=== PATIENT | female | born 1955 | race Caucasian/White ===

== ENCOUNTER 2023-10-09 11:06 | Outpatient (OUT) | payer MEDICARE, MEDICAID, SELFPAY ==
[2023-10-09 11:38] LABS: Basophils Absolute Auto 0.1 10^3/uL (0.0-0.1); Basophils Percent Auto 1.3 % (0.2-2.0); Eosinophils Absolute Auto 0.1 10^3/uL (0.0-0.7); Eosinophils Percent Auto 1.4 % (0.9-7.0); Hematocrit 40.3 % (36.0-48.0); Hemoglobin 12.6 g/dL (12.0-16.0); Immature Granulocytes Abs Auto 0.01 10^3/uL (0.00-0.03); Immature Granulocytes Pct Auto 0.2 % (0.0-0.5); Lymphocytes Absolute Auto 2.3 10^3/uL (1.2-3.8); Mean Corpuscular HGB Conc 31.3 g/dL (29.9-35.2); Mean Corpuscular Hemoglobin 28.2 pg (26.7-34.0); Mean Corpuscular Volume 90.2 fL (81.0-99.0); Mean Platelet Volume 10.4 fL (9.5-13.5); Monocytes Absolute Auto 0.3 10^3/uL (0.3-0.8); Monocytes Percent Auto 6.1 % (1.7-12.0); Neutrophils Absolute Auto 2.7 10^3/uL (1.4-6.5); Platelet Count 250 10^3/uL (150-450); Red Blood Count 4.47 10^6/uL (4.20-5.40); Red Cell Distribution Width 12.8 % (11.0-15.0); White Blood Count 5.6 10^3/uL (4.0-11.0)
[2023-10-09 11:53] LABS: Bilirubin Urine NEGATIVE (NEGATIVE); Blood Urine NEGATIVE (NEGATIVE); Clarity Urine CLEAR (CLEAR); Color Urine LT. YELLOW (YELLOW); Glucose Urine UA NEGATIVE (NEGATIVE); Ketones Urine NEGATIVE (NEGATIVE); Leukocyte Esterase Urine NEGATIVE (NEGATIVE); Nitrite Urine NEGATIVE (NEGATIVE); Protein Urine NEGATIVE (NEG/TRACE); Specific Gravity Urine <=1.005 (1.005-1.025); Urobilinogen Urine 0.2 EU/dL (0.2-1.0)
[2023-10-09 11:56] LABS: Estimated Average Glucose 114 mg/dL; Glycohemoglobin A1C 5.6 % (4.5-6.2)
[2023-10-09 12:09] LABS: Bacteria Urine NONE SEEN #/HPF (NONE SEEN); Mucus Urine NONE SEEN (NONE SEEN); RBC Urine NONE SEEN #/HPF (0-2); Squamous Epithelial Cell Urine RARE #/LPF (NONE/RARE); WBC Urine NONE SEEN #/HPF (NONE SEEN)
[2023-10-09 12:19] LABS: Alanine Aminotransferase 15 U/L (14-59); Albumin Globulin Ratio 1.1; Albumin Level 4.1 g/dL (3.4-5.0); Alkaline Phosphatase 74 U/L (46-116); Amylase 30 U/L (25-115); Anion Gap 12.4; Aspartate Amino Transferase 15 U/L (15-37); BUN Creatinine Ratio 17.3; Bilirubin Total 0.4 mg/dL (0.2-1.0); Calcium 9.4 mg/dL (8.5-10.1); Carbon Dioxide 28.5 mmol/L (21.0-32.0); Chloride 104 mmol/L (98-107); Chol HDL Ratio 2.9; Cholesterol 234 mg/dL (<=200); Estimated GFR (African America >60 (>=60); Estimated GFR (Non-African Ame >60 (>=60); Globulin 3.8 g/dL; Glucose 94 mg/dL (74-106); HDL Cholesterol 82 mg/dL (40-60); Potassium 3.9 mmol/L (3.5-5.1); Sodium 141 mmol/L (136-145); Thyroid Stimulating Hormone 0.256 uIU/mL (0.358-3.740); Total Protein 7.9 g/dL (6.4-8.2); Triglycerides 77 mg/dL (<=150); VLDL CHOLESTEROL 15.4 mg/dL
== END 2023-10-09 11:07 | disposition home or self-care (01) ==
PROVIDERS: PCP Family Medicine; Visit Provider Family Medicine
DX: K29.70 Gastritis, unspecified, without bleeding (principal); E78.5 Hyperlipidemia, unspecified; J44.9 Chronic obstructive pulmonary disease, unspecified; R73.09 Other abnormal glucose; Z12.12 Encounter for screening for malignant neoplasm of rectum; D64.9 Anemia, unspecified; E55.9 Vitamin D deficiency, unspecified; R82.998 Other abnormal findings in urine
CPT/HCPCS: 36415; 80053; 80061; 81001; 82150; 82306; 83036; 83540; 83690; 84436; 84443; 84481; 85025; 87086

== ENCOUNTER 2023-10-11 13:53 | Outpatient (REF) | payer MEDICARE, MEDICAID, SELFPAY ==
--- OUTSIDE RECORDS SUMMARY | 2023-10-11 13:56 | XMS_ITS | CCD ---
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 Name Role Phone Nichelle Bailey II Unavailable [phone] RON CURTIS Attending Unavailable NICHOLAS, DR GARZA Primary Care Unavailable RON CURTIS Admitting Unavailable BARRERA, DR YENI Sunshine Consulting Unavailable GEORGIA, DR BARRY Shepherd Consulting Unavailable RON CURTIS Consulting Unavailable PABLO MILLER Consulting Unavailable NICHOLAS, DR GARZA Admitting Unavailable JINY, DR GARZA Attending Unavailable JINY, DR GARZA Primary Care Unavailable HOY, DR GARZA Consulting Unavailable NICHOLAS, DR GARZA Admitting Unavailable NICHOLAS, DR GARZA Attending Unavailable NICHOLAS, DR GARZA Primary Care Unavailable NICHOLAS, DR GARZA Consulting Unavailable NICHOLAS, DR GARZA Admitting Unavailable JINY, DR GARZA Attending Unavailable JINY, DR GARZA Primary Care Unavailable JINY, DR GARZA Consulting Unavailable BARRERA, DR YENI Sunshine Consulting Unavailable NICHOLAS, DR GARZA Primary Care Unavailable NICHOLAS, DR GARZA Admitting Unavailable NICHOLAS, DR GARZA Attending Unavailable HOY, DR GARZA Consulting Unavailable NICHOLAS, DR GARZA Primary Care Unavailable NICHOLAS, DR GARZA Attending Unavailable NICHOLAS, DR GARZA Admitting Unavailable AUDELIA UNGER Attending Unavailable VIKI BALL Consulting Unavailable AUDELIA UNGER Admitting Unavailable NICHOLAS, DR GARZA Primary Care Unavailable AUDELIA UNGER Consulting Unavailable NICHOLAS, DR GARZA Admitting Unavailable NICHOLAS, DR GARZA Attending Unavailable NICHOLAS, DR GARZA Primary Care Unavailable NICHOLAS, DR GARZA Consulting Unavailable ZIEBER, DR BARRY Shepherd Consulting Unavailable NICHOLAS, DR GARZA Primary Care Unavailable NICHOLAS, DR GARZA Attending Unavailable NICHOLAS, DR GARZA Consulting Unavailable NICHOLAS, DR GARZA Admitting Unavailable WEST, DR YENI Sunshine Consulting Unavailable ESAU, AHMAD Attending Unavailable DR GREG PETERSON Primary Care Unavailable JOSSIE CIFUENTES Admitting Unavailable JOSSIE CIFUENTES Consulting Unavailable NICHELLE BAILEY Admitting Unavailable NICHELLE BAILEY Attending Unavailable DR GREG PETERSON Primary Care Unavailable DANIEL RIBEIRO Attending Unavailable LESLYE TRIPP Attending Unavailable Allergies Allergy Classification Reported Allergen(s) Allergy Type Date of Onset Reaction(s) Facility (2 sources) Coconut extract; Translations: [COCONUT] Drug Allergy 09-11-2014 [facility] (1 source) Misc-Food; Translations: [Misc-Food] Food allergy (disorder) 09-11-2014 [facility] (1 source) Onion extract; Translations: [ONION] Drug Allergy 08-27-2022 [facility] Medications Current Medications Medication Drug Class(es) Dates Sig (Normalized) Sig (Original) aspirin 81 mg oral tablet (3 sources) Platelet Aggregation Inhibitor, Nonsteroidal Anti-inflammatory Drug take 2 tablets by mouth once daily Aspirin 81 81 MG 2 tablets Orally Once a day Active diclofenac sodium 0.01 mg/mg topical gel (3 sources) Nonsteroidal Anti-inflammatory Drug Start: 01-03-2022 Voltaren 1 % as directed Externally every 4 hours for 30 days Dec, Active 1 ml erenumab-aooe 70 mg/ml auto-injector (4 sources) Aimovig 70 MG/ML as directed Subcutaneous Active 24 hr isosorbide mononitrate 30 mg extended release oral tablet (4 sources) Nitrate Vasodilator take 1 tablet by mouth every twenty-four hours Isosorbide Mononitrate ER 30 MG 1 tablet in the morning Orally Once a day Active take 1 tablet by janiya th every twenty-four hours Isosorbide Mononitrate ER 120 MG 1 table t in the morning Orally Once a day Active lisinopril 5 mg oral tablet (3 sources) Angiotensin Converting Enzyme Inhibitor take 1 tablet by mouth every twenty-four hours Lisinopril 5 MG 1 tablet Orally Once a day Active meclizine hydrochloride 25 mg oral tablet (4 sources) Antiemetic take 1 tablet by mouth every twenty-four hours Meclizine HCl 25 MG 1 tablet as needed Orally Once a day Active meloxicam 7.5 mg oral tablet (1 source) Nonsteroidal Anti-inflammatory Drug Start: 09-14-20 take 1 tablet by mouth every twenty-four hours Meloxicam 7.5 MG 1 tablet Orally Once a day for 30 day(s) Aug, Active metoprolol tartrate 25 mg oral tablet (1 source) beta-Adrenergic Kenia Metoprolol Tartrate 25 MG as directed Orally Active rimegepant 75 mg disintegrating oral tablet (1 source) Nurtec 75 MG 1 tablet on the tongue and allow to dissolve Orally Active Completed/Discontinued Medications Medication Drug Class(es) Dates Sig (Normalized) Sig (Original) celecoxib 100 mg oral capsule (2 sources) Nonsteroidal Anti-inflammatory Drug Start: 01-18-2022 take 1 capsule by mouth twice daily for arthritis Celecoxib 100 MG 1 capsule for arthritis Orally BID for 30 day(s) January, Not-Taking triamcinolone acetonide 40 mg/ml injectable suspension (4 sources) Corticosteroid Start: 04-19-2022 Kenalog-40 Apr, 120 mg Start: 09-14-2021 Kenalog -40 mg Aug, 120 mg Problems Active Problems Problem Classification Problem Date Documented Da te Episodic/Chronic Anxiety disorders (2 sources) Anxiety disorder, unspecified; Translations: [Anxiety disorder, unspecified] Onset: 08-27-2022 Chronic Coronary atherosclerosis and other heart disease (2 sources) Angina pectoris with documented spasm; Translations: [Angina pectoris with documented spasm] Onset: 08-27-2022 Chronic Disorders of lipid metabolism (2 sources) Mixed hyperlipidemia; Translations: [Mixed hyperlipidemia] Onset: 08-27-2022 Chronic Essential hypertension (2 sources) Essential (primary) hypertension; Translations: [Essential (primary) hypertension] Onset: 08-27-2022 Chronic Neoplasms of unspecified nature or uncertain behavior (4 sources) 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; Translations: [NEOPLASM UNCERT BHV PITUITARY GLAND] Onset: 10-29-2022 Episodic Osteoarthritis (20 sources) Osteoarthritis of right hip joint; Translations: [Unilateral primary osteoarthritis, right hip] Onset: 09-14-2021 Resolved: 04-19-2022 Chronic Other and unspecified benign neoplasm (4 sources) Benign neoplasm of cerebral meninges; Translations: [BENIGN NEOPLASM CEREBRAL MENINGES] Onset: 08-15-2022 Chronic Spondylosis; intervertebral disc disorders; other back problems (5 sources) Radiculopathy, lumbar region; Translations: [RADICULOPATHY LUMBAR REGION] Onset: 04-19-2022 Resolved: 04-19-2022 Episodic Unclassified (3 sources) LOW BACK PAIN, UNSPECIFIED; Translations: [LOW BACK PAIN, UNSPECIFIED] Onset: 06-26-2022 Unclassified (2 sources) CONTACT W/AND (SUSP) EXPOS COVID-19; Translations: [CONTACT W/AND (SUSP) EXPOS COVID-19] Onset: 04-04-2022 Unclassified (1 source) COUGH, UNSPECIFIED; Translations: [COUGH, UNSPECIFIED] Onset: 04-04-2022 Viral infection (1 source) COVID-19; Translations: [COVID-19] Onset: 04-04-2022 Past or Other Problems Problem Classification Problem Date Documented Da te Episodic/Chronic E Codes: Fall (1 source) Unspecified fall, initial encounter; Translations: [UNSPECIFIED FALL INITIAL ENCOUNTER] Onset: 06-26-2022 Episodic Genitourinary symptoms and ill-defined conditions (2 sources) Dysuria; Translations: [Frequency of micturition] Onset: 06-03-2022 Episodic Other aftercare (1 source) Other jail (current) drug therapy; Translations: [OTH PRODUCTIVITY ENGINEER CURRENT DRUG THERAPY] Onset: 06-26-2022 Episodic Other circulatory disease (1 source) Other specified symptoms and signs involving the circulatory and respiratory systems; Translations: [OTH SPEC SX SIGNS INVLV CIRC RS] Onset: 04-04-2022 Episodic Other injuries and conditions due to external causes (1 source) Other specified injuries of head, initial encounter; Translations: [OTH SPEC INJURIES HEAD INITIAL ENC] Onset: 06-26-2022 Episodic Other lower respiratory disease (4 sources) Other nonspecific abnormal finding of lung field; Translations: [OTH NONSPECIFIC ABN FIND LNG FIELD] Onset: 06-08-2022 Episodic Screening and history of mental health and substance abuse codes (1 source) Personal history of nicotine dependence; Translations: [PERSONAL HISTORY OF NICOTINE DEPEND] Onset: 06-26-2022 Episodic Sprains and strains (1 source) Strain of muscle, fascia and tendon at neck level, initial encounter; Translations: [STRN MUSC FASC TENDON NECK LEVL INT] Onset: 06-26-2022 Episodic Superficial injury; contusion (2 sources) Contusion of lower back and pelvis, initial encounter; Translations: [Contusion of left hand, initial encounter] Onset: 06-26-2022 Episodic Unclassified (1 source) LOW BACK PAIN, UNSPECIFIED; Translations: [LOW BACK PAIN, UNSPECIFIED] Onset: 06-25-2022 Unclassified (1 source) CONTACT W/AND (SUSP) EXPOS COVID-19; Translations: [CONTACT W/AND (SUSP) EXPOS COVID-19] Onset: 04-03-2022 Urinary tract infections (4 sources) Urinary tract infection, site not specified; Translations: [UTI SITE NOT SPECIFIED] Onset: 06-20-2022 Episodic Results Test Name Value Interpretation Reference Range Facility Office Visiton 03-25-2023 Follow-up visit [id number] Sam Cunningham 1955 F Date Provider Department Center 03/25/2023 DANIEL YUNG [facility] Family History Problem Relation Age of Onset Anemia Mother Breast cancer Mother Diabetes Mother Hypertension Mother Hyperlipidemia Mother Coronary artery disease Father Diabetes Father Hypertension Father Hyperlipidemia Father Stroke Paternal Grandmother Coronary artery disease Paternal Grandmother Family Status - Relation Status Age at Mother Father Paternal Grandmother Level of Service:04496 [place] OFFICE/OUTPATIENT ESTABLISHED MOD MDM 30-39 MIN Reason for Visit and Comments: Follow-up [155867] Normal [facility] ACTH, PLASMAon 10-30-2022 ACTH, Plasma 16.7 pg/mL Normal 7.2-63.3 [facility] Comment on above: Result Comment: ACTH reference interval for samples collected between 7 and 10 AM. Performed By: #### U AMIC #### [facility] [address] [address] [address] Annie Rain CORTISOLon 10-30-2022 Cortisol 4.7 ug/dL Normal [facility] Comment on above: Result Comment: Gurdeep isol AM 6.2 - 19.4 Cortisol PM 2.3 - 11.9 Performed By: #### C ORTISO #### [facility] [address] [address] [address] Annie Rain FSHon 10-30-2022 FSH 57.8 mIU/mL Normal [facility] Comment on above: Result Comment: Adul t Female: Follicular phase 3.5 - 12.5 Ovulation phase 4.7 - 21.5 Luteal phase 1.7 - 7.7 Postmenopausal 25.8 - 134.8 Performed By: #### L BCFSH #### [facility] [address] [place] [address] Dr. Annie Rain GROWTH HORMONEon 10-30-2022 Growth Hormone, Serum 1.5 ng/mL Normal 0.0-10.0 [facility] Comment on above: Performed By: #### U AMIC #### [facility] [address] [place] [address] Dr. Annie Rain AJBTBYE-WKDX-YSRFRB-FACTOR 1 on 10-30-2022 Insulin-Like Growth Factor I 94 ng/mL Normal 57-202 [facility] Comment on above: Performed By: #### I NSGF1 #### [facility] [address] [place] [address] Dr. Annie Rain LUTEINIZING HORMONE (LH)on 0 10-30-2022 LH 22.1 mIU/mL Normal [facility] Comment on above: Result Comment: Adul t Female: Follicular phase 2.4 - 12.6 Ovulation phase 14.0 - 95.6 Luteal phase 1.0 - 11.4 Postmenopausal 7.7 - 58.5 Performed By: #### L BCLH #### [facility] [address] [place] [address] Dr. Annie Rain PROLACTINon 10-30-2022 Prolactin 6.4 ng/mL Normal 4.8-23.3 [facility] Comment on above: Performed By: #### P ROLAC #### [facility] [address] [place] [address] Dr. Annie Rain FREE T4on 10-29-2022 Free T4 [Mass/Vol] 1.01 ng/dL Normal 0.76-1.46 [facility] Comment on above: Performed By: #### F T4 #### [facility] [address] [place] [address] Dr. Annie Rain PROF CHEM 8 (BAS METB)on Anion gap [Moles/Vol] 11.4 mmol/L Normal [facility] Comment on above: Performed By: #### U AMIC #### [facility] [address] [place] [address] Dr. Annie Rain Calcium [Mass/Vol] 9.4 mg/dL Normal 8.5-10.1 [facility] Comment on above: Performed By: #### U AMIC #### [facility] [address] [place] [address] Dr. Annie Rain Chloride [Moles/Vol] 105 mmol/L Normal 98-107 [facility] Comment on above: Performed By: #### U AMIC #### [facility] [address] [place] [address] Dr. Annie Rain CO2 [Moles/Vol] 29.6 mmol/L Normal 21.0-32.0 [facility] Comment on above: Performed By: #### U AMIC #### [facility] [address] [place] [address] Dr. Annie Rain Creatinine [Mass/Vol] 0.55 mg/dL Normal 0.55-1.02 [facility] Comment on above: Performed By: #### U AMIC #### [facility] [address] [place] [address] Dr. Annie Rain EGFR-AF DANISH >60 Normal >=60 [facility] Comment on above: Performed By: #### U AMIC #### [facility] [address] [place] [address] Dr. Annie Rain EGFR-NON AF DANISH >60 Normal >=60 [facility] Comment on above: Performed By: #### U AMIC #### [facility] [address] [place] [address] Dr. Annie Rain Glucose [Mass/Vol] 80 mg/dL Normal 74-106 [facility] Comment on above: Performed By: #### U AMIC #### [facility] [address] [place] [address] Dr. Annie Rain Potassium [Moles/Vol] 4.0 mmol/L Normal 3.5-5.1 [facility] Comment on above: Performed By: #### U AMIC #### [facility] [address] [place], [place] [address] Dr. Annie Rain Sodium [Moles/Vol] 142 mmol/L Normal 136-145 [facility] Comment on above: Performed By: #### U AMIC #### [facility] [address] [place], [place] [address] Dr. Annie Rain Urea nitrogen [Mass/Vol] 8.0 mg/dL Normal 7.0-18.0 [facility] Comment on above: Performed By: #### U AMIC #### [facility] [address] [address] [address] Annie Rain Urea nitrogen/Creatini ne [Mass ratio] 14.5 mg/mg Normal [facility] Comment on above: Performed By: #### U AMIC #### [facility] [address] [address] [address] Annie Rain TSHon 10-29-2022 TSH 0.404 uIU/mL Normal 0.358-3.740 [facility] Comment on above: Performed By: #### U AMIC #### [facility] [address] [address] [address] Annie Rain Follow-Upon 08-27-2022 Follow-Up [id number] Sam Cunningham 1955 F Date Provider Department Center 08/27/2022 LESLYE MILLIGAN [facility] Family History Problem Relation Age of Onset Anemia Mother Breast cancer Mother Diabetes Mother Hypertension Mother Hyperlipidemia Mother Coronary artery disease Father Diabetes Father Hypertension Father Hyperlipidemia Father Stroke Paternal Grandmother Coronary artery disease Paternal Grandmother Family Status - Relation Status Age at Mother Father Paternal Grandmother Level of Service:[id number] [place] OFFICE/OUTPATIENT ESTABLISHED MOD MDM 30-39 MIN Reason for Visit and Comments: Hypertension [615639] Hyperlipidemia [182] prinzmetal angina [Other] Normal [facility] XR LSPINE MIN 4 VIEWSon 08-16 XR LSPINE MIN 4 VIEWS EXAM: XR LSPINE MIN 4 VIEWS EXAMINATION: XR LSPINE MIN 4 VIEWS HISTORY: Lumbar radiculopathy COMPARISON: 02/03/2019 FINDINGS: BONES: 2 mm anterolisthesis of L4 in relation L5. Mild spondylosis. Moderate to severe facet osteoarthropathy DISC SPACES: Multilevel disc space narrowing PARASPINOUS: Negative. No paraspinous abnormality is seen. OTHER: Vascular calcifications IMPRESSION: Degenerative changes Electronically authenticated by: YENI RUST Date: 2022-08-27 07:31 Normal [facility] MRI BRAIN WO W CONon 022 MRI BRAIN WO W CON EXAMINATION: MRI BRAIN WO W CON HISTORY: Meningioma of cerebellum COMPARISON: MRI brain 02/05/2022, CT head 06/25/2022 TECHNIQUE: A variety of imaging planes and parameters were utilized for visualization of suspected pathology. Images were performed without and with Dotarem contrast. FINDINGS: CEREBRUM: No edema, hemorrhage, mass, acute infarction, or inappropriate atrophy. CEREBELLUM: Lentiform shaped enhancing, extra-axial mass adjacent the inferior lateral margin of the left cerebellum, 18 x 14 x 8 mm. BRAINSTEM: No edema, hemorrhage, mass, acute infarction, or inappropriate atrophy. CSF SPACES: Ventricles, cisterns, and sulci are appropriate for age. No hydrocephalus, subarachnoid hemorrhage, or mass. SKULL: No mass or other significant visible lesion. SINUSES: Limited views demonstrate no significant mucosal thickening or fluid. ORBITS: Limited views are unremarkable. OTHER: 9 x 5 mm mass at the superior margin of the pituitary fossa IMPRESSION: 1. Stable left cerebellar meningioma. 2. 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 Electronically authenticated by: BARRY HO Date: 2022-08-15 22:51 Normal [facility] CREATININEon 08-15-2022 Creatinine [Mass/Vol] 0.62 mg/dL Normal 0.55-1.02 [facility] Comment on above: Performed By: #### C ARNOL #### [facility] [address] [address] [address] Annie Rain EGFR-AF DANISH >60 Normal >=60 [facility] Comment on above: Performed By: #### C ARNOL #### [facility] [address] [address] [address] Annie Rain EGFR-NON AF DANISH >60 Normal >=60 [facility] Comment on above: Performed By: #### C ARNOL #### [facility] [address] [address] [address] ABD/PELVIS WO CONon 06-25 CT ABD/PELVIS WO CON EXAMINATION: CT ABD/PELVIS WO CON, 06/25/2022 12:44 PM EDT HISTORY: C/O: a pain COMPARISON: None. TECHNIQUE: CT scan of the abdomen and pelvis was performed without IV contrast. CT dose reduction technique was used, including Automated Exposure Control. FINDINGS: LUNG BASES: No visible pulmonary or pleural disease. LIVER: No enlargement, atrophy, abnormal density, or significant focal lesion. BILIARY: No dilatation or calcification. PANCREAS: No lesion, fluid collection, ductal dilatation, or atrophy. SPLEEN: No enlargement or focal lesion. ADRENALS: No mass or enlargement. KIDNEYS: 2.7 cm hypodensity lower pole of the left kidney, parapelvic cyst suspected BOWEL/MESENTERY: No visible mass, obstruction, or bowel wall thickening. AORTA/VASCULAR: No aneurysm. Mild to moderate atherosclerosis RETROPERITONEUM: No mass or adenopathy. LYMPH NODES: No adenopathy. URINARY BLADDER: No visible focal wall thickening, lesion, or calculus. PELVIC ORGANS: No visible mass. Pelvic organs appropriate for patient age. ABDOMINAL WALL: No mass or hernia. BONES: No bony lesion or fracture. OTHER: Negative. IMPRESSION: No acute abnormality Electronically authenticated by: YENI RUST Date: 2022-06-25 13:49 Normal [facility] CT HEAD WO CONon 06-25-2022 CT HEAD WO CON EXAMINATION: CT HEAD WO CON HISTORY: HEADACHE COMPARISON: An MRI examination of the brain dated 02/05/2022 and an MRI examination of the pituitary gland dated 09/03/2017 (report currently unavailable). TECHNIQUE: CT head spine without IV contrast. Coronal and sagittal reformations were performed. Dose reduction techniques were achieved by using automated exposure control and/or adjustment of mA and/or kV according to patient size and/or use of iterative reconstruction technique. FINDINGS: The lateral ventricles are normal size, shape and position. The third and fourth ventricles are midline. Buenrostro-white differentiation is normal. There is a hyperdense nodule occupying the suprasellar cistern measuring up to 6 mm. This dates back to at least 09/03/2017. No intracranial hemorrhage is detected. Cortical sulci are normal and are symmetrical side to side. A fracture or cortical irregularity is not identified. The visualized paranasal sinuses are clear. The mastoid air cells are normally pneumatized. IMPRESSION: 1. There is a hyperdense nodule within the suprasellar cistern dating back to at least 2016. In this location, a Rathke cleft cyst would be the most common explanation. The possibility of a hamartoma of the tuber cinereum was considered but these lesions are typically more posterior in location. The possibility of a craniopharyngioma was considered but in light of the patient's age and imaging characteristics, this is felt to be an unlikely alternative. A meningioma was also considered but this lesion does not exhibit the typical CT or MRI enhancement pattern of a meningioma. 2. An acute abnormality is not identified. Electronically authenticated by: PABLO MILLER Date: 2022-06-25 13:56 Normal [facility] CULTURE URINEon 06-20-2022 CULTURE URINE Culture Observations : LIGHT GROWTH OF MIXED GENITAL SILAS. NO POTENTIAL PATHOGENS SEEN. Normal [facility] Comment on above: Performed By: #### I NSGF1 #### [facility] [address] [place] [address] Dr. Annie Rain UA RANDOM W/MICROSCOPICon BACTERIA NONE SEEN Normal NONE SEEN [facility] Comment on above: Performed By: #### U AMIC #### [facility] [address] [place] [address] Dr. Annie Rain Bilirubin Ql (U) Negative Normal NEGATIVE [facility] Comment on above: Performed By: #### U AMIC #### [facility] [address] [place] [address] Dr. Annie Rain CAST NONE SEEN Normal NONE SEEN [facility] Comment on above: Performed By: #### U AMIC #### [facility] [address] [place] [address] Dr. Annie Rain Clarity (U) CLEAR Normal CLEAR [facility] Comment on above: Performed By: #### U AMIC #### [facility] [address] [place] [address] Dr. Annie Rain Color (U) YELLOW Normal YELLOW [facility] Comment on above: Performed By: #### U AMIC #### [facility] [address] [address] [address] Annie Rain Crystals LM Nom (Urine sed) NONE SEEN Normal NONE SEEN [facility] Comment on above: Performed By: #### U AMIC #### [facility] [address] [address] [address] Annie Rain Epithelial cells LM Ql (Urine sed) RARE Normal NONE SEEN /RARE [facility] Comment on above: Performed By: #### U AMIC #### [facility] [address] [address] [address] Annie Rain Glucose Ql (U) Negative Normal NEGATIVE [facility] Comment on above: Performed By: #### U AMIC #### [facility] [address] [place] [address] Dr. Annie Rain Hemoglobin Ql (U) SMALL Abnormal NEGATIVE [facility] Comment on above: Performed By: #### U AMIC #### [facility] [address] [address] [address] Annie Rain Ketones Ql (U) TRACE Abnormal NEGATIVE [facility] Comment on above: Performed By: #### U AMIC #### [facility] [address] [address] [address] Annie Rain LEUKOCYTES Negative Normal NEGATIVE [facility] Comment on above: Performed By: #### U AMIC #### [facility] [address] [address] [address] Annie Rain MUCOUS NONE SEEN Normal NONE SEEN [facility] Comment on above: Performed By: #### U AMIC #### [facility] [address] [address] [address] Annie Rain Nitrite Ql (U) Negative Normal NEGATIVE [facility] Comment on above: Performed By: #### U AMIC #### [facility] [address] [place] [address] Dr. Annie Rain pH (U) 6.5 [pH] Normal 5-9 [facility] Comment on above: Performed By: #### U AMIC #### [facility] [address] [address] [address] Annie Rain RBC 2-5 Abnormal 0-2 [facility] Comment on above: Performed By: #### U AMIC #### [facility] [address] [place] [address] Dr. Annie Rain SPEC GRAVITY 1.020 Normal 1.005-<=1.025 [facility] Comment on above: Performed By: #### U AMIC #### [facility] [address] [place] [address] Dr. Annie Rain UA PROTEIN Negative Normal NEGATIVE/ TRACE [facility] Comment on above: Performed By: #### U AMIC #### [facility] [address] [place] [address] Dr. Annie Rain Urobilinogen Qn (U) 1.0 {Willam'U}/dL Normal 0.2 - 1.0 [facility] Comment on above: Performed By: #### U AMIC #### [facility] [address] [place] [address] Dr. Annie Rain WBC 0-2 Abnormal NONE SEEN [facility] Comment on above: Performed By: #### U AMIC #### [facility] [address] [place] [address] CHEST WO CONon 06-08-2022 CT CHEST WO CON EXAMINATION: CT CHES T WO CON HISTORY: Nodule of lung COMPARISON: 10/27/2021 TECHNIQUE: Multi-planar CT images were created with IV contrast. Axial, Coronal, and Sagittal images. Dose reduction techniques were achieved by using automated exposure control and/or adjustment of mA and/or kV according to patient size and/or use of iterative reconstruction technique. FINDINGS: LUNGS: Mild diffuse centrilobular emphysema. Scattered punctate subcentimeter solid calcified and noncalcified pulmonary nodules with a cluster of small nodules in the posterior right upper lobe measuring up to 4 mm, stable. No new nodule or mass PLEURA: No mass, effusion, or pneumothorax. VASCULATURE: No abnormality. CARLEI: No mass or adenopathy. MEDIASTINUM: No pathologic lymphadenopathy. Left thyroid hypodense nodules CARDIAC: No enlargement, pericardial thickening, or significant calcification. AORTA: No aneurysm or dissection. CHEST WALL: No mass or axillary adenopathy. BONES: No bone lesion or fracture. LIMITED ABDOMEN: No suspicious findings. Limited images of the upper abdomen. OTHER: Negative. IMPRESSION: Scattered punctate pulmonary nodules stable from the prior exam. Lung-RADS 2 FINDINGS: Solid nodule(s): <6 mm or new <4 mm; part solid nodule(s) <6 mm total diameter on baseline screening; nonsolid nodule(s) (GGN): <20 mm or greater than/equal to 20 mm and unchanged or slowly growing; category 3 or 4 nodules unchanged for greater than/equal to 3 months. MANAGEMENT: Continue annual screening with LDCT in 12 months. Electronically authenticated by: YENI RUST Date: 2022-06-08 13:10 Normal [facility] CULTURE URINEon 05-30-2022 CULTURE URINE Culture Observations : NO GROWTH. Normal [facility] Comment on above: Performed By: #### I NSGF1 #### [facility] [address] [place] [address] Dr. Annie aRin UA RANDOM W/MICROSCOPICon BACTERIA TRACE Abnormal NONE SEEN [facility] Comment on above: Performed By: #### U AMIC #### [facility] [address] [place] [address] Dr. Annie Rain Bilirubin Ql (U) Negative Normal NEGATIVE [facility] Comment on above: Performed By: #### U AMIC #### [facility] [address] [place] [address] Dr. Annie Rain CAST NONE SEEN Normal NONE SEEN [facility] Comment on above: Performed By: #### U AMIC #### [facility] [address] [place] [address] Dr. Annie Rain Clarity (U) CLEAR Normal CLEAR [facility] Comment on above: Performed By: #### U AMIC #### [facility] [address] [place] [address] Dr. Annie Rain Color (U) LT. YELLOW Normal YELLOW [facility] Comment on above: Performed By: #### U AMIC #### [facility] [address] [place] [address] Dr. Annie Rain Crystals LM Nom (Urine sed) NONE SEEN Normal NONE SEEN [facility] Comment on above: Performed By: #### U AMIC #### [facility] [address] [address] [address] Annie Rain Epithelial cells LM Ql (Urine sed) RARE Normal NONE SEEN /RARE [facility] Comment on above: Performed By: #### U AMIC #### [facility] [address] [address] [address] Annie Rain Glucose Ql (U) Negative Normal NEGATIVE [facility] Comment on above: Performed By: #### U AMIC #### [facility] [address] [address] [address] Annie Rain Hemoglobin Ql (U) Negative Normal NEGATIVE The [facility] Comment on above: Performed By: #### U AMIC #### [facility] [address] [place] [address] Dr. Annie Rain Ketones Ql (U) Negative Normal NEGATIVE [facility] Comment on above: Performed By: #### U AMIC #### [facility] [address] [address] [address] Annie Rain LEUKOCYTES Negative Normal NEGATIVE [facility] Comment on above: Performed By: #### U AMIC #### [facility] [address] [address] [address] Annie Rain MUCOUS NONE SEEN Normal NONE SEEN [facility] Comment on above: Performed By: #### U AMIC #### [facility] [address] [address] [address] Annie Rain Nitrite Ql (U) Negative Normal NEGATIVE [facility] Comment on above: Performed By: #### U AMIC #### [facility] [address] [address] [address] Annie Rain pH (U) 6.0 [pH] Normal 5-9 [facility] Comment on above: Performed By: #### U AMIC #### [facility] [address] [place] [address] Dr. Annie Rain RBC 0-2 Normal 0-2 [facility] Comment on above: Performed By: #### U AMIC #### [facility] [address] [address] [address] Annie Rain SPEC GRAVITY <=1.005 Abnormal 1.005-<=1.025 The [facility] Comment on above: Performed By: #### U AMIC #### [facility] [address] [address] [address] Annie Rain UA PROTEIN Negative Normal NEGATIVE/ TRACE [facility] Comment on above: Performed By: #### U AMIC #### [facility] [address] [address] [address] Annie Rain Urobilinogen Qn (U) 0.2 {Willam'U}/dL Normal 0.2 - 1.0 [facility] Comment on above: Performed By: #### U AMIC #### [facility] [address] [place] [address] Dr. Annie Rain WBC 0-2 Abnormal NONE SEEN [facility] Comment on above: Performed By: #### U AMIC #### [facility] [address] [place] [address] Dr. Annie Rain [facility] SARS-CoV-2 (COVID-19) RNA GREGOR+probe Ql (Unsp spec) Detected Critically abnormal NOT DETECTED [facility] Comment on above: Result Comment: This test is not yet approved or cleared by the [place] FDA. When there are no FDA-approved or cleared tests available, and other criteria are met, FDA can make tests available under an emergency access mechanism called an Emergency Use Authorization (EUA). The EUA for this test is supported by the [place] of Health and Human Service's declaration that circumstances exist to justify the emergency use of in vitro diagnostics for the detection and/or diagnosis of the virus that causes COVID-19. This EUA will remain in effect for the duration of the COVID-19 declaration justifying emergency of IVDs, unless it is terminated or revoked by the FDA (after which the test may no longer be used). Performed By: #### I NSGF1 #### [facility] [address] [place] [address] Dr. Annie Rain MRI BRAIN WO W CONon 022 MRI BRAIN WO W CON Begin Addendum #1 IMPRESSION #2 notes that there are no prior studies available for comparison. The previous 2 examinations do not include the area of the cerebellar meningioma seen on the present study. Original Report Exam: MR scan of brain with and without contrast. TECHNIQUE: Sagittal T1, axial FLAIR, FREDERICK T2, diffusion imaging without contrast and postcontrast sagittal, axial, and coronal T1-weighted images performed. COMPARISON: MRI of the pituitary performed 09/12/2018 CONTRAST: 15 mL Dotarem HISTORY: Neoplasm of uncertain behavior pituitary gland. FINDINGS: Mass in the suprasellar cistern abutting the optic nerves and optic chiasm measuring approximately 7 x 9 x 11 mm in craniocaudad, AP and transverse dimension. This is stable in appearance when compared to the prior exam. No evidence of enhancement of this lesion. Left cerebellar extra-axial dural based enhancing lesion measuring approximately 9 x 13 x 8 mm in diameter. This is best seen on sagittal image 6, coronal image 18 and axial image 3 of the postcontrast exam. Occasional foci increased T2 signal subcortical white matter. The cerebral hemispheres, brainstem and cerebellar hemispheres are otherwise normal. Good flow is seen within the vertebrobasilar and carotid circulation as well as the sagittal sinus. The orbital apices and infratemporal fossa are normal. Craniocervical junction is normal. IMPRESSION: 1. 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 2. Left cerebellar meningioma measuring 9 x 13 x 8 mm in craniocaudad and transverse dimension. There are no prior studies available for comparison. Normal [facility] BUNon 02-05-2022 Urea nitrogen [Mass/Vol] 13.0 mg/dL Normal 7.0-18.0 [facility] Comment on above: Performed By: #### C ARNOL, BUN #### [facility] [address] [address] [address] Annie Rain CREATININEon 02-05-2022 Creatinine [Mass/Vol] 0.70 mg/dL Normal 0.55-1.02 [facility] Comment on above: Performed By: #### I NSGF1 #### [facility] [address] [address] [address] Annie Rain EGFR-AF DANISH >60 Normal >=60 [facility] Comment on above: Performed By: #### I NSGF1 #### [facility] [address] [place], [place] [address] Dr. Annie Rain EGFR-NON AF DANISH >60 Normal >=60 [facility] Comment on above: Performed By: #### I NSGF1 #### [facility] [address] [address] [address] Annie Rain XR pelvis 1-2Von 09-14-2021 XR pelvis 1-2V [facility] [place] [address] [place] [address] XRay Report Signed Patient: Sherie Cunningham MR#: [id number] : 1955 Acct:[id number] Age/Sex: 66 / F ADM Date: 09/14/21 Loc: ICXD Room: Type: [facility] Attending Dr: Nichelle Bailey II, MD Ordering Provider: Nichelle Bailey MD Date of Service: 09/14/21 XR/XR knee RT 4V*: M25.561 ([id number]) XR/XR pelvis 1-2V: M25.561 Copies to: Nichelle Bailey MD 4 views RIGHT knee plain film COMPARISON:None HISTORY:RIGHT knee pain swelling for 2 months No fracture, dislocation or focal soft tissue abnormality seen. No joint effusion identified. Small marginal spurs identified. Moderate medial compartment joint space narrowing seen bilaterally. XR/XR knee RT 4V* IMPRESSION:Mild to moderate degeneration. Single view pelvis History space is adequate. Articular surfaces are preserved. No fracture or dislocation. No soft tissue abnormality. Mild bilateral SI joint degeneration. IMPRESSION: Unremarkable hips. Impression dictated by: Cedric Caal M.D.09/14/2021 11:59 AM Dictation Location: [place] [address] Transcribed By: [facility] 09/14/21 1159 Dictated By: Cedric Caal DO 09/14/21 1118 Signed By: 09/14/21 1159 Normal [facility] MR head/brain wo/w conon MR head/brain wo/w con [facility] [address] [place] [id number] MRI Report Signed Patient: Sherie Cunningham MR#: [id number] : 1955 Acct:[id number] Age/Sex: 65 / F ADM Date: 11/07/20 Loc: MR Room: Type: [facility] Attending Dr: Barry Woodson MD Ordering Provider: Barry Woodson MD Date of Service: 11/07/20 MR/MR head/brain wo/w con: D44.3, G43.909, R42 Copies to: Barry Woodson MD MR head/brain wo/w con 11/07/2020 8:42 PM SIGN AND SYMPTOMS: History of pituitary enlargement, follow-up PROTOCOL: Multiplanar multisequence MR images of the brain were obtained with and without IV contrast CONTRAST: 14 mL of intravenous ProHance COMPARISON: 09/12/2018 and 09/03/2017 FINDINGS: Extra axial spaces: There is a dural based homogeneously enhancing extra-axial lesion to the left of midline of the posterior fossa causing mild mass effect on the left cerebral hemisphere. This is of sinus total in location. This measures 2.1 x 1.0 x 1.9 cm in greatest dimension. Hemorrhage: None. Ventricular system: Within normal limits. Basal cisterns: Within normal limits and not effaced. Cerebral parenchyma: Scattered periventricular and subcortical white matter T2 and T2 FLAIR hyperintense foci are present, similar to the prior study. Midline shift: None.. Cerebellum: Within normal limits. Brainstem: Within normal limits. OTHER: Calvarium: Normal marrow signal. Vascular system: Satisfactory flow voids within the anterior and posterior circulation. Visualized Paranasal sinuses: Within normal limits. Visualized Orbits: Within normal limits. Visualized upper cervical spine: Within normal limits. Sella and skull base: There is redemonstration of a 6 x 7 x 7 mm nonenhancing mass along the anterior margin of the hypothalamic stalk abutting the optic chiasm. MR/MR head/brain wo/w con IMPRESSION: There is redemonstration of a 6 x 7 x 7 mm nonenhancing mass along the anterior margin of the hypothalamic stalk abutting the optic chiasm. This is unchanged. Scattered periventricular and subcortical white matter T2 and T2 FLAIR hyperintense foci are present, similar to the prior study. This most likely represent sequelae of chronic microvascular ischemic change. There is a dural based homogeneously enhancing extra-axial lesion to the left of midline of the posterior fossa causing mild mass effect on the left cerebral hemisphere. This is of sinus total in location. This measures 2.1 x 1.0 x 1.9 cm in greatest dimension. This most likely represents a meningioma. This was not evaluated on the prior exam. Impression dictated by: Remberto Coulter M.D.11/08/2020 11:48 AM Dictation Location: [place] [address] Transcribed By: YEIMY 11/08/20 1148 Dictated By: Remberto Coulter II, MD 11/08/20 1135 Signed By: 11/08/20 1148 Normal [facility] ISTAT XRay CREon 11-07-2020 Creatinine [Mass/Vol] 0.6 mg/dL Normal 0.6-1.3 [facility] Comment on above: Result Comment: ER/E [place] physician is notified/shown all ISTAT results. Critical values may be confirmed by laboratory testing if deemed necessary by ER attending doctor. Performed By: #### I SCRE #### [address] Point of Care testing , ISTAT GFR ( > 60 Normal [facility] Comment on above: Result Comment: GFR estimated reference range: According to KDOQI guidelines, <60 ml/min/1.73m2 is sufficient to diagnose a patient with chronic kidney disease. PERFORMED BY: [place] [address] PATHOLOGIST MACHINE BUILDER MARK SERRATO M.D. Performed By: #### I SCRE #### [address] Point of Care testing , ISTAT GFR (Non- Am > 60 Normal [facility] Comment on above: Performed By: #### I SCRE #### [address] [place] [address] [facility] Point of Care testing , Vital Signs Date Time Vital Sign Value Performing Clinician Vernon cota 04-19-2022 12:15-0400 Body height 162.56 cm Nichelle Zavala II Other [facility] Other 04-19-2022 12:15-0400 Body mass index (BMI) [Ratio] 27.46 kg/m2 Nichelle Lynn II Other [facility] Other 04-19-2022 12:15-0400 Body weight 72.58 kg Nichelle Zavala II Other [facility] Other 01-18-2022 10:15-0400 Body height 162.56 cm Nichelle Zavala II Other [facility] Other 01-18-2022 10:15-0400 Body mass index (BMI) [Ratio] 27.98 kg/m2 Nichelle Zavala II Other [facility] Other 01-18-2022 10:15-0400 Body weight 73.94 kg Nichelle Lynn II Other [facility] Other 01-03-2022 12:45-0400 Body height 162.56 cm Nichelle Zavala II Other [facility] Other 01-03-2022 12:45-0400 Body mass index (BMI) [Ratio] 27.98 kg/m2 Nichelle Zavala II Other [facility] Other 01-03-2022 12:45-0400 Body weight 73.94 kg Nichelle Zavala II Other [facility] Other 09-14-2021 10:00-0500 Body height 162.56 cm Nichelle Lynn II Other [facility] Other 09-14-2021 10:00-0500 Body mass index (BMI) [Ratio] 27.63 kg/m2 Nichelle Vegaisle II Other [facility] Other 09-14-2021 10:00-0500 Body weight 73.03 kg Nichelle Lynn CARROLL Other [facility] Other Encounters Encounter Date Encounter Type Care Provider Facility Start: 03-25-2023 End: 03-25-2023 ambulatory [facility] Start: 10-29-2022 End: 10-30-2022 ambulatory JOSSIE CIFUENTES Facility:[facility] Start: 09-13-[address] GREG PETERSON Facility :[facility] Start: 08-27-2022 End: 08-27-2022 ambulatory L[facility] [place] Start: 08-24-2022 End: 08-25-[address] GREG PETERSON Facility:[facility] Start: 08-15-2022 End: 08-16-[address] GREG PETERSON Facility:[facility] Start: 06-25-2022 End: 06-25-2022 ambulatory RON CURTIS Facility:[facility] Start: 06-20-2022 End: 06-21-[address] GREG PETERSON Facility:[facility] Start: 06-08-2022 End: 06-09-[address] GREG PETERSON Facility:[facility] Start: 05-30-2022 End: 05-31-[address] GREG PETERSON Facility:[facility] Start: 04-19-2022 End: 04-19-2022 ambulatory Nichelle Bailey II Other [facility] Other Start: 04-19-2022 Office outpatient visit 25 minutes Nichelle Bailey II [facility] Start: 04-03-2022 End: 04-03-[address] GREG PETERSON Facility:[facility] Start: 02-05-2022 End: 02-06-2022 ambulatory AUDELIA UNGER Facility:[facility] Start: 01-29-2022 End: 03-05-2022 ambulatory NICHELLE LYNN Facility:[facility] Start: 01-18-2022 End: 01-18-2022 ambulatory Nichelle Zavala II Other [facility] Other Start: 01-18-2022 Office outpatient visit 25 minutes Nichelle Lynn II [facility] Start: 01-03-2022 End: 01-03-2022 ambulatory Nichelle Lynn II Other [facility] Other Start: 01-03-2022 Office outpatient visit 15 minutes Nichelle Zavala II [facility] Start: 09-14-2021 End: 09-14-2021 ambulatory Nichelle Zavala II Other [facility] Other Start: 09-14-2021 Office outpatient ne w 30 minutes Nichelle Zavala II [facility] Payers Date Payer Category Payer Medicaid [id number] 2. [id number] 1957 Medicare [id number] 2.1 [id number] 1957 Unknown [id number] 2.1 [id number] 1957 Unknown [id number] 2.16.84 [id number] 1955 Unknown [id number] 2.16.84 [id number] 1955 Unknown [id number] 2.16.84 [id number] 1955 Unknown [id number] 2.16.84 [id number] 1955 Unknown [id number] 2.16.84 [id number] 1955 Unknown [id number] 2.16.84 0.1.319906.3.579.2.593 1955 Unknown [id number] 2.16.84 [id number] 1955 Unknown [id number] 2.16.84 [id number] 1955 Unknown [id number] 2.16.84 0.1.493205.3.579.2.593 1955 Unknown [id number] 2.16.84 [id number] 1955 Unknown [id number] 2.16.84 [id number] Social History Date Type Detail Facility Sex Assigned At [facility] Other Progress note 03-25-2023 Note Date & Type Note Facility 03-25-2023 Note [facility] Subjective Sherie Cunningham is a 67 y.o. year old female patient being seen for 6 month F/u Follow-up Patient Active Problem List Diagnosis Anxiety Chest pain Chronic obstructive lung disease (CMS/HCC) Dyspnea Hypertensive disorder Narcolepsy Palpitations Primary fibromyalgia syndrome Tenosynovitis Prinzmetal angina (CMS/HCC) Hyperlipidemia Family History Problem Relation Name Age of Onset Anemia Mother Breast cancer Mother Diabetes Mother Hypertension Mother Hyperlipidemia Mother Coronary artery disease Father Diabetes Father Hypertension Father Hyperlipidemia Father Stroke Paternal Grandmother Coronary artery disease Paternal Grandmother Social History Tobacco Use Smoking status: Former Types: Cigarettes Smokeless tobacco: Never Substance Use Topics Alcohol use: Not Currently HPI Sherie is seen in follow up on chest pain presumed related to spasm. Cardiac cath in 2008 showed normal coronaries, at that time she was investigated for chest pain. She was investigated by a stress test (January 2016) , echocardiogram and a holter monitor (March 2016), all non revealing. Echocardiogram in 2018 and 2020 were nonrevealing. She has COPD and is on inhalers. She used to smoke but not anymore. She had edema with amlodipine in the past. Today she reports that she has been doing really well. She has not had episodes of chest pain in several months. She has not needed to use sublingual nitroglycerin. She has stopped most of medications. Recently she was evaluated in our clinic and was recommended to resume lisinopril and a prescription was sent but she has not picked it up yet. Today her blood pressure is elevated in the office. Review of Systems Cardiovascular: Negative for chest pain, dyspnea on exertion, irregular heartbeat, leg swelling, orthopnea, palpitations and syncope. Respiratory: Negative for cough and shortness of breath. Musculoskeletal: Negative for arthritis, falls and neck pain. Gastrointestinal: Negative for diarrhea and dysphagia. Neurological: Negative for light-headedness and loss of balance. Objective Visit Vitals BP (!) 176/96 Pulse 68 Wt 74.8 kg (165 lb) SpO2 98% BMI 29.23 kg/m??? Smoking Status Former BSA 1.82 m??? Physical Exam Constitutional: Appearance: She is well-developed. She is not ill-appearing. HENT: Head: Normocephalic and atraumatic. Nose: Nose normal. Eyes: General: No scleral icterus. Pupils: Pupils are equal, round, and reactive to light. Neck: Thyroid: No thyromegaly. Vascular: No JVD. Cardiovascular: Rate and Rhythm: Normal rate and regular rhythm. Pulses: Radial pulses are 2+ on the right side and 2+ on the left side. Heart sounds: Normal heart sounds. No murmur heard. No friction rub. No gallop. Pulmonary: Effort: Pulmonary effort is normal. No respiratory distress. Breath sounds: Normal breath sounds. No wheezing or rales. Chest: Chest wall: No tenderness. Abdominal: General: Bowel sounds are normal. There is no distension. Palpations: Abdomen is soft. Tenderness: There is no abdominal tenderness. Musculoskeletal: General: No swelling. Cervical back: Neck supple. Skin: General: Skin is warm and dry. Neurological: General: No focal deficit present. Mental Status: She is alert and oriented to person, place, and time. Psychiatric: Mood and Affect: Mood normal. Behavior: Behavior is cooperative. Judgment: Judgment normal. Allergies Allergies Allergen Reactions Coconut Onion Medications Current Outpatient Medications: albuterol 90 mcg/actuation inhaler, INHALE 2 PUFFS BY MOUTH 4 TIMES A DAY, Disp: , Rfl: lisinopril 5 mg tablet, TAKE 1 TABLET BY MOUTH EVERY DAY, Disp: 90 tablet, Rfl: 3 nitroglycerin (Nitrostat) 0.3 mg SL tablet, Place 1 tablet (0.3 mg) under the tongue every 5 (five) minutes if needed for chest pain., Disp: 100 tablet, Rfl: 1 Recent Labs No visits with results within 6 Month(s) from this visit. Latest known visit with results is: No results found for any previous visit. Blood testing 10/29/2022: Potassium 4.0, BUN 8, creatinine 0.55, TSH normal, free T4 normal Labs on 01/16/2019 are notable for normal TSH, cholesterol 229, LDL 131, triglyceride 124, creatinine 0.66, potassium 3.8, HbA1c 5.2. Hemoglobin 11.4. Blood testing 01/20/2021: Hemoglobin 10.2, platelets 221, potassium 3.7, BUN 13, creatinine 0.81, NT proBNP 56. Imaging and other tests Echocardiogram 01/27/2019: Global left ventricular systolic function is normal (Visually estimated EF 60%). The left ventricle is normal size. Left ventricular wall thickness is normal. No regional wall motion abnormality. Grade 1, mild diastolic dysfunction (abnormal relaxation). Normal right ventricular systolic function. The left atrium is mildly enlarged. The right atrium is normal in size. Unable to assess right sided pressu (more content not included)... [facility] Progress note 08-27-2022 Note Date & Type Note Facility 08-27-2022 Note Patient here for 9 m o follow up Printzmetal angina, hypertension, and hyperlipidemia. Said she isn't taking isosorbide, lisinopril, or metoprolol because they make her migraines even worse. Had chest pain/tightness [address] chest in May 2022. Review of Systems Cardiovascular: Positive for chest pain. Neurological: Positive for headaches. All other systems reviewed and are negative. [facility] Progress note 08-27-2022 Note Date & Type Note Facility 08-27-2022 Note [facility] [place] [facility] SUBJECTIVE Chief Complaint Patient presents with Hypertension Hyperlipidemia prinzmetal angina Sherie Cunningham is a 67 y.o. female here for follow-up. HPI Patient here for 9 mo follow up [employer] angina, hypertension, and hyperlipidemia. Said she isn't taking isosorbide, lisinopril, or metoprolol because they make her migraines even worse. Had chest pain/tightness [address] chest in May 2022. 08/27/2022 -She hasn't had a lot of issues with chest pain since we last saw her. -She had one episode of chest pain 4 days ago, lasted 3-4 minutes, this was the only episode in the past 6 months. -She stopped taking lisinopril and imdur d/t worsening of migraines and affecting her quality of life. She hasn't taken anything for some time, she does not recall the stop date. -BP has been running 116/70s, HR 60-70s -She denies dyspnea, orthopnea, PND, dizziness/LH, palpitations, bleeding issues. Last HPI per Dr. Ribeiro: Sherie is seen in follow up on chest pain presumed related to spasm. Cardiac cath in 2008 showed normal coronaries, at that time she was investigated for chest pain. Visit of 10/31/2016: At last visit I started her on imdur 30 mg daily and she says it has help with reducing the pain frequency. She did have an episode of chest pain 3-4 weeks ago that lasted 20 minutes. She describes the pain to be a squeezing sensation in the center of the chest, can happen at rest or even while she is sleeping. She also has palpitations. She was investigated by a stress test (January 2016) , echocardiogram and a holter monitor (March 2016), all non revealing. She continues to smoke but is trying to quit. She has COPD and is on inhalers. Update 03/06/2017: At last visit I started her on amlodipine 5 mg daily and increased the imdur to 60 mg daily. She had upper and lower extremity swelling and stopped amlodipine and symptoms resolved. She says the pain in the chest still happens but less frequent. She has stopped smoking. Update 11/20/2017: She has been feeling well on combination amlodipine and imdur with very infrequent episodes of chest pain. At last visit I added metoprolol succinate but was approved for metoprolol tartrate. She has been feeling tired and has gained 15 pounds of weight since last visit and is worried about it. Thyroid function in 06/2017 was normal. Update 06/02/2018: She says that after starting imdur she did well except in April she had an episode that lasted longer than others (5-10 minutes). This then subsided. She did not go to the ED. Since then she only had small mild episodes. She says that she is doing pretty good. She has occasional dyspnea. Her blood pressure has been elevated, today is higher than usual. She is still not smoking. update 07/09/2018: At last visit she was very hypertensive and I added lisinopril but she did not tolerate it well, we decreased it from 10 mg daily to 5 mg daily and then she stopped it. Her blood pressure has been controlled. She has very mild occasional chest pain. Update 02/19/2019: She is seen in follow-up. She was most recently seen [employer] [facility] on 01/14/2019. An echocardiogram was ordered due to elevated blood pressure and episodes of chest pain. She has been having a couple more episodes of chest pain. The pain mostly happens at rest. She is taking imdur 60 mg daily. She takes metoprolol 12.5 mg once at nighttime. Update 06/15/2019: She is seen in follow-up. At last visit I increased her isosorbide mononitrate to 120 mg daily for better blood pressure control and to control her chest pain symptoms. I also told her to take metoprolol tartrate 12.5 mg twice daily instead of once daily. She never did. She reports that since last visit she only had one 2 minute episode of chest pain that subsided after taking aspirin. She still has dyspnea on exertion, with excessive exertional activity. blood testing 05/19/2019 showed Hb 11.2, normal renal function and electrolytes. She was positive for H.Pylori and will be getting endoscopy. Update 03/30/2020: She is seen in follow up via telemedicine. She has been well. No significant chest pain. No change in dyspnea on exertion, outside of her COPD. She does not want to take statin which I added at prior visit. She says she does pretty good. Visit of 12/11/2021: She is seen in follow-up. She has been doing relatively well. She was on isosorbide mononitrate 120 mg daily and metoprolol tartrate 12.5 mg twice daily. She stopped them recently due to headache. She reports that she has not had chest pain or significant shortness of breath. No palpitations. Patient Active Problem List Diagnosis Anxiety Chest pain Chronic obstructive lung disease (CMS/HCC) Dyspnea Hypertensive disorder Narcolepsy Palpitations Primary fibromya (more content not included)... [facility] Clinical Note 06-25-2022 Note Date & Type Note Facility 06-25-2022 Note PROCEDURE: CT CSPINE WO CON COMPARISON: None. HISTORY: C/O: a pain TECHNIQUE: Axial, Coronal, and Sagittal CT images obtained without IV contrast. Dose reduction techniques were achieved by using automated exposure control and/or adjustment of mA and/or kV according to patient size and/or use of iterative reconstruction technique. FINDINGS: PARASPINAL AREA: Normal with no visible mass. DISCS: Multilevel disc space narrowing BONES: Normal alignment with no acute fracture or spondylolisthesis. Mild to moderate degenerative spondylosis OTHER: Negative. IMPRESSION: Mild degenerative changes No acute abnormality Electronically authenticated by: YENI RUST Date: 2022-06-25 13:55 [facility] Clinical Note 06-25-2022 Note Date & Type Note Facility 06-25-2022 Note PROCEDURE: XR HAND L T MIN 3V HISTORY: C/O: a pain ; pain after falling; bruising to dorsum of left hand COMPARISON: None. FINDINGS: BONES:Multifocal mild-moderate degenerative joint disease. No fracture, dislocation, bone lesion. SOFT TISSUES:Mild dorsal soft tissue swelling. No radiopaque foreign body. EFFUSION:None visible. OTHER: Negative. IMPRESSION: 1. Mild dorsal soft tissue swelling. 2. No acute bone abnormality. Multifocal mild degenerative joint disease. Electronically authenticated by: BARRY HO Date: 2022-06-25 13:49 [facility] Evaluation note 04-19-2022 Note Date & Type Note Facility 04-19-2022 Evaluation note Encounter Date Diagnosis Assessment Notes Apr, Primary osteoarthritis of right knee (ICD-10 - M17.11) Apr, Primary osteoarthritis of right hip (ICD-10 - M16.11) Apr, Primary osteoarthritis of left knee (ICD-10 - M17.12) Apr, Lumbar back pain with radiculopathy affecting left lower extremity (ICD-10 - M54.16) Apr, Other In regards to the right knee, I recommended that she continue with Voltaren gel, Tylenol, KT tape, and her home exercises. Considering the left knee is the most bothersome and has never had an injection in the past, I recommended a left knee steroid injection in conjunction with the same treatment for her right knee. After consent was obtained, the left knee was injected with 3cc Kenalog and 7cc bupivicaine using sterile technique. Patient tolerated the injection well. In regards to the left lumbar radiculopathy, she tells me this been going on for quite some time and is constant. We will do some physical therapy to see if that helps improve the radiculopathy pain and numbness. I will plan to see her back in 6 weeks. If she still having lumbar radiculopathy pain and numbness then I will plan to get an MRI of her lumbar spine. When she comes back for the 6-week visit we will get a lumbar spine x-ray. [facility] Other Evaluation note 01-18-2022 Note Date & Type Note Facility 01-18-2022 Evaluation note Encounter Date Diagnosis Assessment Notes January, Primary osteoarthritis of right knee (ICD-10 - M17.11) January, Primary osteoarthritis of right hip (ICD-10 - M16.11) January, Other 1. We again discusse d her right knee primary osteoarthritis. I again informed her that arthritis is mainly localized to the inside part of the knee and that at some point in the future she may be a partial knee candidate but given some of her other symptoms I did recommend that we would see an MRI of the right knee prior to making that call. Furthermore, we have not even exhausted conservative management to this point. 2. Tylenol: Discussed taking Tylenol (acetaminophen). Recommended adjusting their dosing to 1000mg by mouth up to 3 times a day. 3. NSAIDs: Prescribed the patient Celebrex 100 mg twice daily. Recommended continuing her Voltaren gel 4. Physical therapy: In an effort to get a viscosupplementation approved we will get her into physical therapy for her right knee. 5. Injections: Discussed injections as a treatment option. At this point we will do some PT and try the Celebrex prior to requesting a viscosupplementation. 6. Follow up 3 months [facility] Other Evaluation note 01-03-2022 Note Date & Type Note Facility 01-03-2022 Evaluation note Encounter Date Diagnosis Assessment Notes Dec, Primary osteoarthritis of right knee (ICD-10 - M17.11) Dec, Primary osteoarthritis of right hip (ICD-10 - M16.11) Dec, Other I had a long discussion with the patient regarding her right knee pain. At this point she did not get much relief at all with a standard steroid injection. So we discussed Zilretta injections versus viscosupplementation. Given the very minimal relief she got with a steroid injection I recommended a viscosupplementation injection. We will plan to get approval for this and have her come back for the injection. Because she is also having some left knee pain we will get 4 views of the left knee when she returns to do the right knee injection. We did also discuss her candidacy for a partial knee replacement. At this point because she has diffuse pain and her x-rays demonstrate what looks like some global patellofemoral joint narrowing I would recommend getting an MRI to further evaluate the patellofemoral joint as well as the lateral compartment. Since she is having this lateral compartment pain as well my concern would be is that there is already degenerative changes on MRI but not necessarily showing up on an x-ray and as a result would be more of an indication for a total knee compared to a partial knee replacement. [facility] Other Evaluation note 09-14-2021 Note Date & Type Note Facility 09-14-2021 Evaluation note Encounter Date Diagnosis Assessment Notes Aug, Primary osteoarthritis of right knee (ICD-10 - M17.11) We performed a cortisone injection into the knee joint under sterile technique. Patient tolerated the injection well without adverse reaction. Aug, Primary osteoarthritis of right hip (ICD-10 - M16.11) Aug, Other 1. We had a long discussion with the patient today concerning their right knee osteoarthritis. The radiographs do show osteoarthritis of the knee. At this time the patient would like to avoid surgical intervention. We did discuss the risk and benefits of surgical versus nonoperative management. The patient would like to proceed with nonoperative management. We discussed that our options include injections, physical therapy, and the consistent use of anti-inflammator ies. All 3 of these options, including their risks and benefits, were discussed at length with the patient. 2. Tylenol: Discussed taking Tylenol (acetaminophen). Recommended adjusting their dosing to 1000mg by mouth up to 3 times a day. 3. NSAIDs: Prescribed the patient 7.5 mg Mobic (meloxicam) to be taken by mouth daily. 4. Injections: Discussed injections as a treatment option. Utilizing sterile technique, the right knee was injected with 3 cc of Kenalog and 7 cc bupivacaine. Patient tolerated this well. 5. Follow up 3 months [facility] Other History general Narrative - Reported Note Date & Type Note Facility History general Narrative - Reported Type Medical History COPD Medical History emphysema Medical History migraine headache Medical History Panic attacks Surgical History thyroidectomy-partial Surgical History hysterectomy Surgical History oophorectomy Surgical History eye surgery Hospitalization History pneumonia Hospitalization History chest pain 04/2021 [facility] Other Summary Purpose Family History No Family History Records FoundNo Family History Records FoundNo Family History Records FoundNo Family History Records Found Advance Directives No Advanced Directives Records FoundNo Advanced Directives Records FoundNo Advanced Directives Records FoundNo Advanced Directives Records Found Additional Source Comments INFORMATION SOURCE (unrecogn ized section and content) DATE CREATED AUTHOR 11/12/2020 [facility] DATE CREATED AUTHOR AUTHOR'S ORGANIZ ATION 12/04/2021 [facility] DATE CREATED AUTHOR AUTHOR'S ORGANIZ ATION 11/03/2022 [facility] DATE CREATED AUTHOR AUTHOR'S ORGANIZ ATION 03/25/2023 [facility] REASON FOR VISIT (unrecogniz ed section and content) Right Knee PainRECHECK RT KN EERecheck Right KneeRecheck Right knee FOR RECORDS PERTAINING TO PATIENTS WHO ARE OR HAVE BEEN ENROLLED IN A CHEMICAL DEPENDENCY/SUBSTANCEABUSE PROGRAM, SOME INFORMATION MAY BE OMITTED. This clinical summary was aggregated from multiple sources. Caution should be exercised in using it in the provision of clinical care. This summary normalizes information from multiple sources, and as a consequence, information in this document may materially change the coding, format and clinical context of patient data. In addition, data may be omitted in some cases. CLINICAL DECISIONS SHOULD BE BASED ON THE PRIMARY CLINICAL RECORDS. [facility]. provides no warranty or guarantee of the accuracy or completeness of information in this document.
[2023-10-12 03:10] LABS: Occult Blood Negative
== END 2023-10-11 13:54 | disposition home or self-care (01) ==
LOC: LAB 13:53
PROVIDERS: PCP Family Medicine; Visit Provider Family Medicine
DX: Z12.12 Encounter for screening for malignant neoplasm of rectum (principal)
CPT/HCPCS: G0328

== ENCOUNTER 2023-10-29 08:26 | Outpatient (OUT) | payer MEDICARE, MEDICAID, SELFPAY ==
--- OUTSIDE RECORDS SUMMARY | 2023-10-29 08:28 | XMS_ITS | CCD ---
Author Name Unknown Address [id number] [place] [address] Organization [facility] Care Team Providers Care Green Ware Caster Name Role Phone Nichelle Bailey II Unavailable RON CURTIS Attending Unavailable NICHOLAS, DR GARZA [...] Unavailable ESAU, AHMAD Attending Unavailable DR GREG ALEMAN Primary Care Unavailable JOSSIE CIFUENTES Admitting Unavailable JOSSIE CIFUENTES Consulting Unavailable NICHELLE BAILEY Admitting Unavailable NICHELLE BAILEY Attending Unavailable DR GREG ALEMAN Primary Care Unavailable DANIEL RIBEIRO Attending Unavailable HAY BLAS Attending Unavailable Allergies Allergy Classification Reported Allergen(s) Allergy Type Date of Onset Reaction(s) Facility (2 sources) Coconut extract; Translations: [COCONUT] Drug Allergy 09-11-[address] [facility] Repository (1 source) Misc-Food; Translations: [Misc-Food] Food allergy (disorder) 09-11-2014 [facility] Repository (1 source) amLODIPine; Translations: [AMLODIPINE] Drug Allergy 10-17-2023 [facility] Repository (1 source) Onion extract; Translations: [ONION] Drug Allergy 08-27-2022 [facility] Repository Medications Current Medications Medication Drug Class(es) [...] Classification Problem Date Documented Da te Episodic/Chronic Coronary atherosclerosis and other heart disease (2 [...] 06-03-2022 Episodic Other aftercare (1 source) Other terminologist (current) drug therapy; Translations: [OTH MEDICINE AIDE CURRENT DRUG THERAPY] Onset: 06-26-2022 Episodic Other [...] Value Interpretation Reference Range Facility Office Visiton 10-17-2023 Follow-up visit [id number] Sam Cunningham 1955 Date Provider Department Center 10/17/2023 HAY POE [facility] Family History Problem Relation Age of Onset Anemia Mother Breast cancer Mother Diabetes Mother Hypertension Mother Hyperlipidemia Mother Coronary artery disease Father Diabetes Father Hypertension Father Hyperlipidemia Father Stroke Paternal Grandmother Coronary artery disease Paternal Grandmother Family Status - Relation Status Age at Mother Father Paternal Grandmother Level of Service:42186 [place] OFFICE/OUTPATIENT ESTABLISHED MOD MDM 30 MIN Normal [facility] Office Visiton 03-25-2023 Follow-up visit [id number] Sam Cunningham 1955 Provider Department Center 03/25/2023 DANIEL YUNG [facility] Family History Problem Relation Age of Onset Anemia Mother Breast cancer Mother Diabetes Mother Hypertension Mother Hyperlipidemia Mother Coronary artery disease Father Diabetes Father Hypertension Father Hyperlipidemia Father Stroke Paternal Grandmother Coronary artery disease Paternal Grandmother Family Status - Relation Status Age at Mother Father Paternal Grandmother Level of Service:98312 [place] OFFICE/OUTPATIENT ESTABLISHED MOD MDM 30-39 MIN Reason for Visit and Comments: Follow-up [476440] Normal [facility] ACTH, PLASMAon 10-30-2022 ACTH, Plasma 16.7 pg/mL Normal 7.2-63.[address] [facility] Comment on above: Result Comment: ACTH reference interval for samples collected between 7 and 10 AM. Performed By: #### U AMI #### [facility] [address] [address] [address] Annie Rain CORTISOLon 10-30-2022 Cortisol 4.7 ug/dL Normal [facility] Comment on above: Result Comment: Gurdeep isol AM 6.2 - 19.4 Cortisol PM 2.3 - 11.9 Performed By: #### C ORTISO #### [facility] [address] [place] [address] Dr. Annie Rain FSHon 10-30-2022 FSH 57.8 mIU/mL Normal [facility] Comment on above: Result Comment: Adul t Female: Follicular phase 3.5 - 12.5 Ovulation phase 4.7 - 21.5 Luteal phase 1.7 - 7.7 Postmenopausal 25.8 - 134.8 Performed By: #### L BCFS #### [facility] [address] [place] [address] Dr. Annie Rain GROWTH HORMONEon 10-30-2022 Growth Hormone, Serum 1.5 ng/mL Normal 0.0-10.0 [facility] Comment on above: Performed By: #### U AMIC #### [facility] [address] [place] [address] Dr. Annie Rain [id number]-TYYOMY-FACTOR 1 on 10-30-2022 Insulin-Like Growth Factor I 94 ng/mL Normal 57-202 [facility] Comment on above: Performed By: #### I NSGF1 #### [facility] [address] [place] [address] Dr. Annie Rain LUTEINIZING HORMONE (LH)on 0 10-30-2022 LH 22.1 mIU/mL Normal [facility] Comment on above: Result Comment: Adul t Female: Follicular phase 2.4 - 12.6 Ovulation phase 14.0 - 95.6 Luteal phase 1.0 - 11.4 Postmenopausal 7.7 - 58.5 Performed By: #### L BCLH #### [facility] [address] [place] [address] Dr. Annie Rain PROLACTINon 10-30-2022 Prolactin 6.4 ng/mL Normal 4.8-23.3 [facility] Comment on above: Performed By: #### P ROLAC #### [facility] [address] [address] [address] Annie Rain FREE T4on 10-29-2022 Free T4 [Mass/Vol] 1.01 ng/dL Normal 0.76-1.46 [facility] Comment on above: Performed By: #### F T4 #### [facility] [address] [place] [address] Dr. Annie Rain PROF CHEM 8 (BAS METB)on Anion gap [Moles/Vol] 11.4 mmol/L Normal [facility] Comment on above: Performed By: #### U AMIC #### [facility] [address] [place] [address] Dr. Annie Rain Calcium [Mass/Vol] 9.4 mg/dL Normal 8.5-10.1 [facility] Comment on above: Performed By: #### U AMIC #### [facility] [address] [place] [address] Dr. Annie Rain Chloride [Moles/Vol] 105 mmol/L Normal 98-[address] [facility] Comment on above: Performed By: #### U AMIC #### [facility] [address] [place] [address] Dr. Annie Rain CO2 [Moles/Vol] 29.6 mmol/L Normal 21.0-32.0 [facility] Comment on above: Performed By: #### U AMIC #### [facility] [address] [place] [address] Dr. Annie Rain Creatinine [Mass/Vol] 0.55 mg/dL Normal 0.55-1.[address] [facility] Comment on above: Performed By: #### U AMIC #### [facility] [address] [place] [address] Dr. Annie Rain EGFR-AF CITIZEN [place] >60 Normal >=60 [facility] Comment on above: Performed By: #### U AMIC #### [facility] [address] [place] [address] Dr. Annie Rain EGFR-NON AF CITIZEN OF [place] >60 Normal >=[address] [facility] Comment on above: Performed By: #### U AMIC #### [facility] [address] [address] [address] Annie Rain Glucose [Mass/Vol] 80 mg/dL Normal 74-106 [facility] Comment on above: Performed By: #### U AMIC #### [facility] [address] [address] [address] Annie Rain Potassium [Moles/Vol] 4.0 mmol/L Normal 3.5-5.1 [facility] Comment on above: Performed By: #### U AMIC #### [facility] [address] [address] [address] Annie Rain Sodium [Moles/Vol] 142 mmol/L Normal 136-145 [facility] Comment on above: Performed By: #### U AMIC #### [facility] [address] [address] [address] Annie Rain Urea nitrogen [Mass/Vol] 8.0 mg/dL Normal 7.0-18.0 [facility] Comment on above: Performed By: #### U AMIC #### [facility] [address] [address] [address] Annie Rain Urea nitrogen/Creatini ne [Mass ratio] 14.5 mg/mg Normal [facility] Comment on above: Performed By: #### U AMIC #### [facility] [address] [address] [address] Annie Rain TSHon 10-29-2022 TSH 0.404 uIU/mL Normal 0.358-3.740 [facility] Comment on above: Performed By: #### U AMIC #### [facility] [address] [address] [address] Annie Rain XR LSPINE MIN 4 VIEWSon 08-16 XR [...] YENI RUST Date: 2022-08-27 07:[address] [facility] MRI BRAIN WO W CONon 022 [...] BARRY HO Date: 2022-08-15 22:[address] [facility] CREATININEon 08-15-2022 Creatinine [Mass/Vol] 0.62 mg/dL Normal 0.55-1.[address] [facility] Comment on above: Performed By: #### C ARNOL #### [facility] [address] [place] [address] Dr. Annie Rain EGFR-AF CITIZ[place] >60 Normal >=60 [facility] Comment on above: Performed By: #### C ARNOL #### [facility] [address] [address] [address] Annie Rain EGFR-NON AF CITIZEN OF [place] >60 Normal >=[address] [facility] Comment on above: Performed By: #### C ARNOL #### [facility] [address] ABD/PELVIS WO CONon [...] YENI RUST Date: 2022-06-25 13:[address] [facility] CT HEAD WO CONon 06-25-2022 CT [...] PABLO MILLER Date: 2022-06-25 13:[address] [facility] CULTURE URINEon 06-20-2022 CULTURE URINE Culture Observations : LIGHT GROWTH OF MIXED GENITAL SILAS. NO POTENTIAL PATHOGENS SEEN. Normal [facility] Comment on above: Performed By: #### I NSGF1 #### [facility] [address] [place] [address] Dr. Annie Rain UA RANDOM W/MICROSCOPICon BACTERIA NONE SEEN Normal NONE SEEN [facility] Comment on above: Performed By: #### U AMIC #### [facility] [address] [place] [address] Dr. Annie Rain Bilirubin Ql (U) Negative Normal NEGATIVE [facility] Comment on above: Performed By: #### U AMIC #### [facility] [address] [place] [address] Dr. Annie Rain CAST NONE SEEN Normal NONE SEEN [facility] Comment on above: Performed By: #### U AMIC #### [facility] [address] [place] [address] Dr. Annie Rain Clarity (U) CLEAR Normal CLEAR [facility] Comment on above: Performed By: #### U AMIC #### [facility] [address] [place] [address] Dr. Annie Rain Color (U) YELLOW Normal YELLOW [facility] Comment on above: Performed By: #### U AMIC #### [facility] [address] [place] [address] Dr. Annie Rain Crystals LM Nom (Urine sed) NONE SEEN Normal NONE SEEN [facility] Comment on above: Performed By: #### U AMIC #### [facility] [address] [place] [address] Dr. Annie Rain Epithelial cells LM Ql (Urine sed) RARE Normal NONE SEEN /RARE [facility] Comment on above: Performed By: #### U AMIC #### [facility] [address] [address] [address] Annie Rain Glucose Ql (U) Negative Normal NEGATIVE [facility] Comment on above: Performed By: #### U AMIC #### [facility] [address] [address] [address] Annie Rain Hemoglobin Ql (U) SMALL Abnormal NEGATIVE [facility] Comment on above: Performed By: #### U AMIC #### [facility] [address] [place] [address] Dr. Annie Rain Ketones Ql (U) TRACE Abnormal NEGATIVE [facility] Comment on above: Performed By: #### U AMIC #### [facility] [address] [address] [address] Annie Rain LEUKOCYTES Negative Normal NEGATIVE [facility] Comment on above: Performed By: #### U AMIC #### [facility] [address] [place] [address] Dr. Annie Rain MUCOUS NONE SEEN Normal NONE SEEN [facility] Comment on above: Performed By: #### U AMIC #### [facility] [address] [address] [address] Annie Rain Nitrite Ql (U) Negative Normal NEGATIVE [facility] Comment on above: Performed By: #### U AMIC #### [facility] [address] [address] [address] Annie Rain pH (U) 6.5 [pH] Normal 5-[address] [facility] Comment on above: Performed By: #### U AMIC #### [facility] [address] [place] [address] Dr. Annie Rain RBC 2-5 Abnormal 0-2 [facility] Comment on above: Performed By: #### U AMIC #### [facility] [address] [address] [address] Annie Rain SPEC GRAVITY 1.020 Normal 1.005-<=1.025 [facility] Comment on above: Performed By: #### U AMIC #### [facility] [address] [address] [address] Annie Rain UA PROTEIN Negative Normal NEGATIVE/ TRACE [facility] Comment on above: Performed By: #### U AMIC #### [facility] [address] [address] [address] Annie Rain Urobilinogen Qn (U) 1.0 {Willam'U}/dL Normal 0.2 - 1.0 [facility] Comment on above: Performed By: #### U AMIC #### [facility] [address] [address] [address] Annie Rain WBC 0-2 Abnormal NONE SEEN [facility] Comment on above: Performed By: #### U AMIC #### [facility] [address] [address] [address] CHEST WO CONon [...] mass, effusion, or pneumothorax. VASCULATURE: No abnormality. CARLIE: No mass or adenopathy. MEDIASTINUM: No pathologic [...] YENI RUST Date: 2022-06-08 13:[address] [facility] CULTURE URINEon 05-30-2022 CULTURE URINE Culture Observations : NO GROWTH. Normal [facility] Comment on above: Performed By: #### I NSGF1 #### [facility] [address] [place] [address] Dr. Annie Rain UA RANDOM W/MICROSCOPICon BACTERIA TRACE Abnormal NONE SEEN [facility] Comment on above: Performed By: #### U AMIC #### [facility] [address] [place] [address] Dr. Annie Rain Bilirubin Ql (U) Negative Normal NEGATIVE [facility] Comment on above: Performed By: #### U AMIC #### [facility] [address] [place] [address] Dr. Annie Rain CAST NONE SEEN Normal NONE SEEN [facility] Comment on above: Performed By: #### U AMIC #### [facility] [address] [place] [address] Dr. Annie Rain Clarity (U) CLEAR Normal CLEAR [facility] Comment on above: Performed By: #### U AMIC #### [facility] [address] [place] [address] Dr. Annie Rain Color (U) LT. YELLOW Normal YELLOW [facility] Comment on above: Performed By: #### U AMIC #### [facility] [address] [place] [address] Dr. Annie Rain Crystals LM Nom (Urine sed) NONE SEEN Normal NONE SEEN [facility] Comment on above: Performed By: #### U AMIC #### [facility] [address] [address] [address] Annie Rain Epithelial cells LM Ql (Urine sed) RARE Normal NONE SEEN /RARE [facility] Comment on above: Performed By: #### U AMIC #### [facility] [address] [address] [address] Annie Rain Glucose Ql (U) Negative Normal NEGATIVE [facility] Comment on above: Performed By: #### U AMIC #### [facility] [address] [address] [address] Annie Rain Hemoglobin Ql (U) Negative Normal NEGATIVE [facility] Comment on above: Performed By: #### U AMIC #### [facility] [address] [address] [address] Annie Rain Ketones Ql (U) Negative Normal NEGATIVE [facility] Comment on above: Performed By: #### U AMIC #### [facility] [address] [address] [address] Annie Rain LEUKOCYTES Negative Normal NEGATIVE [facility] Comment on above: Performed By: #### U AMIC #### [facility] [address] [address] [address] Annie Rain MUCOUS NONE SEEN Normal NONE SEEN [facility] Comment on above: Performed By: #### U AMIC #### [facility] [address] [place] [address] Dr. Annie Rain Nitrite Ql (U) Negative Normal NEGATIVE [facility] Comment on above: Performed By: #### U AMIC #### [facility] [address] [place] [address] Dr. Annie Rain pH (U) 6.0 [pH] Normal 5-9 [facility] Comment on above: Performed By: #### U AMIC #### [facility] [address] [place] [address] Dr. Annie Rain RBC 0-2 Normal 0-2 [facility] Comment on above: Performed By: #### U AMIC #### [facility] [address] [place] [address] Dr. Annie Rain SPEC GRAVITY <=1.005 Abnormal 1.005-<=1.025 [facility] Comment on above: Performed By: #### U AMIC #### [facility] [address] [place] [address] Dr. Annie Rain UA PROTEIN Negative Normal NEGATIVE/ TRACE [facility] Comment on above: Performed By: #### U AMIC #### [facility] [address] [place] [address] Dr. Annie Rain Urobilinogen Qn (U) 0.2 {Willam'U}/dL Normal 0.2 - 1.[address] [facility] Comment on above: Performed By: #### U AMIC #### [facility] [address] [place] [address] Dr. Annie Rain WBC 0-2 Abnormal NONE SEEN [facility] Comment on above: Performed By: #### U AMIC #### [facility] [address] [place] [address] Dr. Annie Rain Covid-19 PCR ([facility])on 03-16 SARS-CoV-2 (COVID-19) RNA GREGOR+probe Ql (Unsp spec) Detected Critically abnormal NOT DETECTED [facility] Comment on above: Result Comment: This test is not yet approved or cleared by the [place] FDA. When there are no FDA-approved or cleared tests available, and other criteria are met, FDA can make tests available under an emergency access mechanism called an Emergency Use Authorization (EUA). The EUA for this test is supported by the Cornice Upholsterer of Health and Human Service's declaration that [...] used). Performed By: #### I NSGF1 #### [facility] [address] [place] [address] Dr. Annie Rain MRI BRAIN WO W [...] prior studies available for comparison. Normal [facility] BUNon 02-05-2022 Urea nitrogen [Mass/Vol] 13.0 mg/dL Normal 7.0-18.[address] [facility] Comment on above: Performed By: #### C ARNOL, BUN #### [facility] [address] [address] [address] Annie Rain CREATININEon 02-05-2022 Creatinine [Mass/Vol] 0.70 mg/dL Normal 0.55-1.02 [facility] Comment on above: Performed By: #### I NSGF1 #### [facility] [address] [address] [address] Annie Rain EGFR-AF [place]IZ[place] >60 Normal >=60 [facility] Comment on above: Performed By: #### I NSGF1 #### [facility] [address] [place] [address] Dr. Annie Rain EGFR-NON AF CITIZEN OF [place] >60 Normal >=60 [facility] Comment on above: Performed By: #### I NSGF1 #### [facility] [address] [address] [address] Annie Rain XR pelvis 1-2Von 09-14-2021 XR pelvis 1-2V [facility] [address] [place] [address] XRay Report Signed Patient: Sherie Cunningham MR#: [id number] : 1955 Acct:[id number] Age/Sex: 66 / F ADM Date: 09/14/21 Loc: ICXD Room: Type: [facility] Attending Dr: Nichelle Bailey II, MD Ordering Provider: Nichelle Bailey MD Date of Service: 09/14/21 XR/XR knee RT 4V*: M25.561 ([id number]) XR/XR pelvis 1-2V: M25.561 Copies to: Nichelle [...] Cedric Caal M.D.09/14/2021 11:59 AM Dictation Location: [place] [address] Transcribed By: [facility] 09/14/21 1159 Dictated By: Cedric Caal DO 09/14/21 1118 Signed By: 09/14/21 1159 Normal [facility] MR head/brain wo/w conon MR head/brain wo/w con [facility] [address] [place] [address] MRI Report Signed Patient: Sherie Cunningham MR#: [id number] : 1955 Acct:[id number] Age/Sex: 65 / F ADM Date: 11/07/20 Loc: MR Room: Type: [facility] Attending Dr: Barry Woodson MD Ordering [...] Remberto Coulter M.D.11/08/2020 11:48 AM Dictation Location: [place] [address] Transcribed By: [facility] 11/08/20 1148 Dictated By: Remberto Coulter II, MD 11/08/20 1135 Signed By: 11/08/20 1148 Normal [facility] ISTAT XRay CREon 11-07-2020 Creatinine [Mass/Vol] 0.6 mg/dL Normal 0.6-1.3 [facility] Comment on above: Result Comment: ER/E SD physician is notified/shown all ISTAT results. Critical values may be confirmed by laboratory testing if deemed necessary by ER attending doctor. Performed By: #### I SCRE #### [address] Point of Care testing , ISTAT GFR ( > 60 Normal [facility] Comment on above: Result Comment: GFR estimated reference range: According to KDOQI guidelines, <60 ml/min/1.73m2 is sufficient to diagnose a patient with chronic kidney disease. PERFORMED BY: [place] [address] PATHOLOGIST MEDICARE SPECIALIST MARK SERRATO M.D. Performed By: #### I SCRE #### [address] Point of Care testing , ISTAT GFR (Non- Am > 60 Normal [facility] Comment on above: Performed By: #### I SCRE #### [address] Point of Care testing , Vital Signs Date Time Vital Sign Value Performing Clinician Vernon cota 04-19-2022 12:15-0400 Body height 162.56 cm Nichelle Barton II Other [employer] Other 04-19-2022 12:15-0400 Body mass index (BMI) [Ratio] 27.46 kg/m2 Nichelle Barton II Other [employer] Other 04-19-2022 12:15-0400 Body weight 72.58 kg Nichelle Barton II Other [employer] Other 01-18-2022 10:15-0400 Body height 162.56 cm Nichelle Barton II Other [employer] Other 01-18-2022 10:15-0400 Body mass index (BMI) [Ratio] 27.98 kg/m2 Nichelle Barton II Other [employer] Other 01-18-2022 10:15-0400 Body weight 73.94 kg Nichelle Lynn II Other [employer] Other 01-03-2022 12:45-0400 Body height 162.56 cm Nichelle Barton II Other [employer] Other 01-03-2022 12:45-0400 Body mass index (BMI) [Ratio] 27.98 kg/m2 Nichelle Barton II Other [employer] Other 01-03-2022 12:45-0400 Body weight 73.94 kg Nichelle Lynn II Other [employer] Other 09-14-2021 10:00-0500 Body height 162.56 cm Nichelle Barton II Other [employer] Other 09-14-2021 10:00-0500 Body mass index (BMI) [Ratio] 27.63 kg/m2 Nichelle Bailey II Other [employer] Other 09-14-2021 10:00-0500 Body weight 73.03 kg Nichelle Bailey II Other [employer] Other Encounters Encounter Date Encounter Type Care Provider Facility Start: 10-17-2023 End: [facility]: [facility]-25-[facility]23 End: 03-25-2023 ambulatory DANIEL MERCEDESCORBINLANIE [facility] Start: 10-29-2022 End: 10-30-2022 ambulatory JOSSIE CIFUENTES Facility:[facility] Start: 09-13-[address] GREG ALEMAN Facility :[facility] Start: 08-24-2022 End: 08-25-[address] GREG ALEMAN Facility:[facility] Start: 08-15-2022 End: 08-16-[address] GREG ALEMAN Facility:[facility] Start: 06-25-2022 End: 06-25-2022 ambulatory RON CURTIS Facility:[facility] Start: 06-20-2022 End: 06-21-[address] GREG ALEMAN Facility:[facility] Start: 06-08-2022 End: 06-09-[address] GREG ALEMAN Facility:[facility] Start: 05-30-2022 End: 05-31-[address] GREG ALEMAN Facility:[facility] Start: 04-19-2022 End: 04-19-2022 ambulatory Nichelle Bailey II Other [employer] Other Start: 04-19-2022 Office outpatient visit 25 minutes Nichelle Bailey II [facility] Start: 04-03-2022 End: 04-03-[address] GREG ALEMAN Facility:[facility] Start: 02-05-2022 End: 02-06-2022 ambulatory AUDELIA UNGER Facility:[facility] Start: 01-29-2022 End: 03-05-2022 ambulatory NICHELLE LYNN Facility:[facility] Start: 01-18-2022 End: 01-18-2022 ambulatory Nichelle Barton II Other [employer] Other Start: 01-18-2022 Office outpatient visit 25 minutes Nichelle Barton II [facility] Start: 01-03-2022 End: 01-03-2022 ambulatory Nichelle Barton II Other [employer] Other Start: 01-03-2022 Office outpatient visit 15 minutes Nichelle Lynn II [facility] [facility] Start: 09-14-2021 End: 09-14-2021 ambulatory Nichelle Barton II Other [employer] Other Start: 09-14-2021 Office outpatient ne w 30 minutes Nichelle Lynn II [facility] Payers Date Payer Category Payer Medicaid [id number] 2. [id number] 1957 Medicare [id number] 2.1 [id number] 1959 Unknown [id number] 2.1 [id number] 1957 Unknown [id number] 2.16.84 0.1.900242.3.579.2.593 1957 Unknown [id number] 2.16.84 0.1.294708.3.579.2.593 1957 Unknown [id number] 2.16.84 0.1.736103.3.579.2.593 1957 Unknown [id number] 2.16.84 0.1.367023.3.579.2.593 1957 Unknown [id number] 2.16.84 0.1.879974.3.579.2.593 1957 Unknown [id number] 2.16.84 0.1.215351.3.579.2.593 1957 Unknown [id number] 2.16.84 0.1.718212.3.579.2.593 1957 Unknown [id number] 2.16.84 0.1.885547.3.579.2.593 1957 Unknown [id number] 2.16.84 0.1.219316.3.579.2.593 1957 Unknown [id number] 2.16.84 0.1.544361.3.579.2.593 1957 Unknown [id number] 2.16.84 0.1.087051.3.579.2.593 Social History Date Type Detail Facility Sex Assigned At [employer] [facility] Other Clinical Notes 09-14-2021 to 10-17-2023 Note Date & Type Note Facility 10-17-2023 Note Lipids elevated and pt prefers to start with diet and lifestyle modifications Will repeat lipid level in 3 months to re-evaluate [facility] 10-17-2023 Note Hypertension is elev ated in office, she is adamant that b/p is well controlled at home. Staff to call pt in 1-2 weeks to review b/p log. Continue lisinopril 5 mg daily- she reports a dry cough but states this is r/t her lung disease- we discussed side effect of lisinopril can be cough and she voiced understanding. [facility] 10-17-2023 Note Stable continue all medications [facility] 10-17-2023 Note [facility] PROGR ESS NOTE HPI: Sherie Cunningham is a 68 y.o. female here for routine F/U Patient here for 6 mo follow up Prinzmetal angina, hypertension, and hyperlipidemia. Routine labs/lipid were drawn last week. She said Dr. Aleman's nurse told her he wasn't concerned with her cholesterol levels because the good overtakes the bad . C/o cough and worsening SOB w/ exertion. Says BP recently at Dr. Aleman's office was 133/90. Denies chest pain, palpitations, and lightheadedness. She's a former smoker but is still exposed to her 's smoking. BP at home earlier today was 153/84. Then came down to 143/83 she states. She is adamant that typically her b/p is well controlled and < 130/80 and this morning is unusual. Review of Systems Constitutional: Positive for diaphoresis and weight loss (12# since 03/25/2023). Cardiovascular: Positive for leg swelling. Respiratory: Positive for cough. Gastrointestinal: Positive for abdominal pain. All other systems reviewed and are negative. Previous HPI per Dr Ribeiro HPI Sherie is seen in follow up [...] blood pressure is elevated in the office. Visit Vitals BP (!) 157/92 (BP Location: Right arm, Patient Position: Sitting) Pulse 71 Ht 1.6 m (5' 3 ) Wt 69.4 kg (153 lb) SpO2 96% BMI 27.10 kg/m??? Smoking Status Former BSA 1.76 m??? Allergies Allergen Reactions Amlodipine Swelling Coconut Onion Medications: Current Outpatient Medications on File Prior to Visit Medication Sig Dispense Refill albuterol 90 mcg/actuation inhaler INHALE 2 PUFFS BY MOUTH 4 TIMES A DAY hyoscyamine 0.125 mg dissolvable tablet Take 0.125 mg by mouth every 4 (four) hours if needed. lisinopril 5 mg tablet TAKE 1 TABLET BY MOUTH EVERY DAY 90 tablet 3 nitroglycerin (Nitrostat) 0.[address] 1 tablet (0.3 mg) under the tongue every 5 (five) minutes if needed for chest pain. 100 tablet 1 pantoprazole (ProtoNix) 40 mg EC tablet Take 40 mg by mouth before breakfast. Do not crush, chew, or split. No current facility-administered medications on file prior to visit. Physical Exam: Constitutional: Appearance: Normal appearance. Without apparent distress HENT: Head: Normocephalic and atraumatic. Nose: Nose normal. Mouth/Throat: Mouth: Mucous membranes are moist. Eyes: Extraocular Movements: Extraocular movements intact. Conjunctiva/sclera: Conjunctivae normal. Neck: Vascular: No JVD. Cardiovascular: Rate and Rhythm: Normal rate and regular rhythm. Pulses: Dorsalis pedis pulses are 3 on the right side and 3on the left side. Posterior tibial pulses are 3 on the right side and 3 on the left side. Heart sounds: Normal heart sounds, S1 normal and S2 normal. Pulmonary: Effort: Pulmonary effort is normal. Breath sounds: Normal breath sounds. Abdominal: General: Bowel sounds are normal. Palpations: Abdomen is soft. Musculoskeletal: General: Normal range of motion. Cervical back: Normal range of motion. Right lower leg: No edema. Left lower leg: No edema. Skin: General: Skin is warm and dry. Capillary Refill: Capillary refill takes less than 2 seconds. Neurological: General: No focal deficit present. Mental Status: She is alert and oriented to person, place, and time. Psychiatric: Mood and Affect: Mood normal. Behavior: Behavior normal. Thought Content: Thought content normal. Judgment: Judgment normal. Labs: 10/09/23 A1C 5.6 CBC stable BUN 13, CR 0.75 GFR > 60- normal renal function Liver function normal Chol 234, HDL 82, LDL 137, trig 77- elevated Blood testing 10/29/2022: Potassium 4.0, BUN 8, [...] thickness is normal. No regional wall motion abnor (more content not included)... [facility] 10-17-2023 Note Patient here for 6 m o follow up Prinzmetal angina, hypertension, and hyperlipidemia. Routine labs/lipid were drawn last week. She said Dr. Aleman's nurse told her he wasn't concerned with her cholesterol levels because the good overtakes the bad . C/o cough and worsening SOB w/ exertion. Says BP recently at Dr. Aleman's office was 133/90. Denies chest pain, palpitations, and lightheadedness. She's a former smoker but is still exposed to her 's smoking. BP at home earlier today was 153/84. Then came down to 143/83 she states. Review of Systems Constitutional: Positive for diaphoresis and weight loss (12# since 03/25/2023). Cardiovascular: Positive for leg swelling. Respiratory: Positive for cough. Gastrointestinal: Positive for abdominal pain. All other systems reviewed and are negative. [facility] 03-25-2023 Note [place] [facility] - [facility] Subjective Sherie Cunningham is a [...] right sided pressu (more content not included)... [facility] 06-25-2022 Note PROCEDURE: CT CSPINE WO CON [...] changes No acute abnormality Electronically authenticated by: YEIN RUST Date: 2022-06-25 13:55 [facility] 06-25-2022 Note PROCEDURE: XR HAND L T [...] authenticated by: BARRY HO Date: 2022-06-25 13:49 [facility] 04-19-2022 Evaluation note Encounter Date Diagnosis Assessment [...] we will get a lumbar spine x-ray. [employer] Other 05-05-2022 Evaluation note* Encounter Date Diagnosis Assessment Notes Treatment Notes Treatment Clinical Notes January, Primary osteoarthritis of right knee (ICD-10 - M17.11) January, Primary osteoarthritis of right hip (ICD-10 - M16.11) January, Other 1. We again dis cussed her right knee primary osteoarthritis. I again [...] a viscosupplementation. 6. Follow up 3 months [employer] Other 04-20-2022 Evaluation note* Encounter Date Diagnosis Assessment Notes Treatment Notes Treatment Clinical Notes Dec, Primary osteoarthritis of right knee (ICD-10 - M17.11) Dec, Primary osteoarthritis of right hip (ICD-10 - M16.11) Dec, Other I had a long di scussion with the patient regarding her right knee [...] knee compared to a partial knee replacement. [employer] Other 12-30-2021 Evaluation note* Encounter Date Diagnosis Assessment Notes Treatment Notes Treatment Clinical Notes Aug, Primary osteoarthritis of right knee [...] physical therapy, and the consistent use of anti-inflammatories. All 3 of these options, including their [...] this well. 5. Follow up 3 months [employer] Other History general Narrative - Reported* Type Description Date Medical History COPD Medical History emphysema Medical History migraine headache Medical History Panic attacks Surgical History thyroidectomy-partial Surgical History hysterectomy Surgical History oophorectomy Surgical History eye surgery Hospitalization History pneumonia Hospitalization History chest pain 04/2021 [employer] Other Summary Purpose Family History No Family History Records FoundNo Family History Records FoundNo Family History Records FoundNo Family History Records Found Advance Directives No Advanced Directives Records FoundNo Advanced Directives Records FoundNo Advanced Directives Records FoundNo Advanced Directives Records Found Additional Source Comments INFORMATION SOURCE (unrecogn ized section and content) DATE CREATED AUTHOR 11/12/2020 [facility] DATE CREATED AUTHOR AUTHOR'S ORGANIZ ATION 12/04/2021 [facility] DATE CREATED AUTHOR AUTHOR'S ORGANIZ ATION 11/03/2022 [facility] DATE CREATED AUTHOR AUTHOR'S ORGANIZ ATION 10/18/2023 [facility] REASON FOR VISIT (unrecogniz ed section [...] BE BASED ON THE PRIMARY CLINICAL RECORDS. [employer] provides no warranty or guarantee of the accuracy or completeness of information in this document.
--- NOTE | 2023-10-29 08:31 | MR_ITS ---
The [address] [address] Patient Name: OUMAR CHEN MRN: [id number] date: 1955 Sex: F Assigned Patient Location: MRI Current Patient Location: MRI Accession/Order Number: [id number] Exam Date: 10/29/2023 09:00 Report Date: 10/29/2023 10:39 At the request of: GREG PETERSON Procedure: MR head/brain wo/w con MR head/brain wo/w con, 10/29/2023 9:00 AM EST INDICATION: Meningioma D32.9 COMPARISON: Prior MRI of the head dated 02/05/2022 and MRI dated 09/12/2018 TECHNIQUE: Multiplanar, multisequential MRI images of brain were obtained without and with injection of contrast. FINDINGS: The cerebral sulci as well as ventricular system are appropriate for age. There is no restricted diffusion. There is a stable extra-axial enhancing lesion in the left cerebellar hemisphere measuring 1 x 1.8 cm (transverse/AP) most likely consistent with a meningioma. 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 There is no midline shift, intra or extra-axial fluid collection or large hemorrhage. Hyperintensities on T2 and FLAIR images in the chan radiata and centrum semiovale with sparing of U fibers are nonspecific, statistically most likely consistent with microvascular ischemic changes. No other abnormal enhancing lesion is noted. Normal flow-void in the intracranial vessels is noted. The visualized portions of orbits, mastoid air cells as well as paranasal sinuses are unremarkable. MR/MR head/brain wo/w con IMPRESSION: No acute intracranial process is noted. No significant interval change in size of the left cerebellar hemisphere extra-axial lesion likely meningioma. 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 Electronically authenticated by: ASH ART Date: 10/29/2023 10:39
== END 2023-10-29 08:27 | disposition home or self-care (01) ==
LOC: MRI 08:26
PROVIDERS: PCP Family Medicine; Visit Provider Family Medicine
DX: D32.9 Benign neoplasm of meninges, unspecified (principal)
CPT/HCPCS: 70553; A9575

== ENCOUNTER 2024-01-13 07:03 | Outpatient (OUT) | payer MEDICARE, MEDICAID, SELFPAY ==
--- NOTE | 2024-01-13 07:06 | US_ITS ---
The [address] [address] Patient Name: OUMAR CHEN MRN: [id number] date: 1955 Sex: F Assigned Patient Location: [place] Current Patient Location: [place] Accession/Order Number: [id number] Exam Date: 01/13/2024 07:10 Report Date: 01/13/2024 08:04 At the request of: GREG PETERSON Procedure: US right upper quadrant Ultrasound abdomen right upper quadrant HISTORY: Right Upper Quadrant Pain R10.11 COMPARISON: None. TECHNIQUE: Dedicated transabdominal right upper quadrant ultrasound was performed. FINDINGS: The gallbladder is nondistended and without focal wall abnormality. There is no discrete gallstone identified. No sludge is seen. The gallbladder wall measures 1.5 mm in thickness. No pericholecystic fluid is seen, and the sonographic Florez's sign is negative. The proximal common bile duct measures 2 mm in diameter. There is no intrahepatic bile duct dilatation. Liver measures 16.3 cm, with normal echotexture and echogenicity. There are few hepatic cysts visualized, largest measuring 0.9 cm. The visualized pancreas is normal. Portions of the pancreas are obscured by overlying bowel gas. The right kidney measures 10.3 x 6.1 x 5.4 cm. There is no hydronephrosis in the right kidney. There is no fluid in the right upper quadrant. US/US right upper quadrant IMPRESSION: 1. Normal gallbladder. There are no stones or sludge, and no sonographic evidence of acute cholecystitis. 2. Normal caliber common bile duct at 2 mm. 3. Incidental small hepatic cysts, largest 0.9 cm. 4. Right kidney without hydronephrosis. Electronically authenticated by: LLOYD ISSA Date: 01/13/2024 08:04
--- OUTSIDE RECORDS SUMMARY | 2024-01-13 07:06 | XMS_ITS | CCD ---
Author Organization [facility] Care Team Providers Care Accreditation Manager Name Role Phone Nichelle Bailey II Unavailable RON CURTIS Attending Unavailable NICHOLAS, DR GARZA Primary Care Unavailable RON CURTIS Admitting Unavailable BARRERA, DR YENI Sunshine Consulting Unavailable GEORGIA, DR BARRY Shepherd Consulting Unavailable RON CURTIS Consulting Unavailable PABLO MILLER Consulting Unavailable NICHOLAS, DR GARZA Admitting Unavailable JINY, DR GARZA Attending Unavailable JINY, DR GARZA Primary Care Unavailable NICHOLAS, DR GARZA Consulting Unavailable NICHOLAS, DR GARZA Admitting Unavailable HOY, DR GARZA Attending Unavailable JINY, DR GARZA Primary Care Unavailable JINY, DR GARZA Consulting Unavailable NICHOLAS, DR GARZA Admitting Unavailable JINY, DR GARZA Attending Unavailable NICHOLAS, DR GARZA Primary Care Unavailable NICHOLAS, DR GARZA Consulting Unavailable BARRERA, DR YENI Sunshine Consulting Unavailable NICHOLAS, DR GARZA Primary Care Unavailable NICHOLAS, DR GARZA Admitting Unavailable NICHOLAS, DR GARZA Attending Unavailable JINY, DR GARZA Consulting Unavailable NICHOLAS, DR GARZA Primary Care Unavailable NICHOLAS, DR GARZA Attending Unavailable NICHOLAS, DR GARZA Admitting Unavailable AUDELIA UNGER Attending Unavailable VIKI BALL Consulting Unavailable UTEAUDELIA Admitting Unavailable NICHOLAS, DR GARZA Primary Care Unavailable AUDELIA UNGER Consulting Unavailable NICHOLAS, DR GARZA Admitting Unavailable NICHOLAS, DR GARZA Attending Unavailable NICHOLAS, DR GARZA Primary Care Unavailable NICHOLAS, DR GARZA Consulting Unavailable ZIEBBRAYDEN, DR BARRY Shepherd Consulting Unavailable NICHOLAS, DR GARZA Primary Care Unavailable NICHOLAS, DR GARZA Attending Unavailable NICHOLAS, DR GARZA Consulting Unavailable NICHOLAS, DR GARZA Admitting Unavailable BARRERA, DR YENI Sunshine Consulting Unavailable JOSSIE CIFUENTES Attending Unavailable NICHOLAS, DR GARZA Primary Care Unavailable JOSSIE CIFUENTES Admitting Unavailable JOSSIE CIFUENTES Consulting Unavailable NICHELLE BAILEY Admitting Unavailable NICHELLE BAILEY Attending Unavailable DR GREG ALEMAN Primary Care Unavailable DANIEL RIBEIRO Attending Unavailable HAY BLAS Attending Unavailable Allergies Allergy Classification Reported Allergen(s) Allergy Type Date of Onset Reaction(s) Facility (2 sources) Coconut extract; Translations: [COCONUT] Drug Allergy 09-11-2014 [facility] Repository (1 source) Misc-Food; Translations: [Misc-Food] Food allergy (disorder) 09-11-2014 [facility] Repository (1 source) amLODIPine; Translations: [AMLODIPINE] Drug Allergy 10-17-2023 [facility] Repository (1 source) Onion extract; Translations: [ONION] Drug Allergy 08-27-2022 [facility] Repository Medications Current Medications Medication Drug Class(es) [...] 06-03-2022 Episodic Other aftercare (1 source) Other assisted (current) drug therapy; Translations: [OTH CLERICAL COORDINATOR CURRENT DRUG THERAPY] Onset: 06-26-2022 Episodic Other [...] Range Facility Office Visiton 10-17-2023 Follow-up visit [id number] Sam Cunningham 1955 Date Provider Department Center 10/17/2023 HAY POE [facility] Family History Problem Relation Age of Onset Anemia Mother Breast cancer Mother Diabetes Mother Hypertension Mother Hyperlipidemia Mother Coronary artery disease Father Diabetes Father Hypertension Father Hyperlipidemia Father Stroke Paternal Grandmother Coronary artery disease Paternal Grandmother Family Status - Relation Status Age at Mother Father Paternal Grandmother Level of Service:71622 MA OFFICE/OUTPATIENT ESTABLISHED MOD MDM 30 MIN Normal [facility] Office Visiton 03-25-2023 Follow-up visit [id number] Sam Cunningham 1955 Date Provider Department Center 03/25/2023 DANIEL YUNG [facility] Family History Problem Relation Age of Onset Anemia Mother Breast cancer Mother Diabetes Mother Hypertension Mother Hyperlipidemia Mother Coronary artery disease Father Diabetes Father Hypertension Father Hyperlipidemia Father Stroke Paternal Grandmother Coronary artery disease Paternal Grandmother Family Status - Relation Status Age at Mother Father Paternal Grandmother Level of Service:45001 MA OFFICE/OUTPATIENT ESTABLISHED MOD MDM 30-39 MIN Reason for Visit and Comments: Follow-up [898111] Normal [facility] ACTH, PLASMAon 10-30-2022 ACTH, Plasma 16.7 pg/mL Normal 7.2-63.3 [facility] Comment on above: Result Comment: ACTH reference interval for samples collected between 7 and 10 AM. Performed By: #### U [facility] #### [facility] [address] [place] [address] Dr. Annie Rain CORTISOLon 10-30-2022 Cortisol 4.7 ug/dL Normal [facility] Comment on above: Result Comment: Gurdeep isol AM 6.2 - 19.4 Cortisol PM 2.3 - 11.9 Performed By: #### C ORTISO #### [facility] [address] [place] [address] Dr. Annie Rain FSHon 10-30-2022 FSH 57.8 mIU/mL Normal [facility] Comment on above: Result Comment: Adul t Female: Follicular phase 3.5 - 12.5 Ovulation phase 4.7 - 21.5 Luteal phase 1.7 - 7.7 Postmenopausal 25.8 - 134.8 Performed By: #### L BCFSH #### [facility] [address] [place] [address] Dr. Annie Rain GROWTH HORMONEon 10-30-2022 Growth Hormone, Serum 1.5 ng/mL Normal 0.0-10.0 [facility] Comment on above: Performed By: #### U AMIC #### [facility] [address] [place] [address] Dr. Annie Rain BGGGMKA-SEID-HXDKRL-FACTOR 1 on 10-30-2022 Insulin-Like Growth Factor I 94 ng/mL Normal 57-202 [facility] Comment on above: Performed By: #### I NSGF1 #### [facility] [address] [place] [address] Dr. Annie Rain LUTEINIZING HORMONE (LH)on 0 10-30-2022 LH 22.1 mIU/mL Normal [facility] Comment on above: Result Comment: Adul t Female: Follicular phase 2.4 - 12.6 Ovulation phase 14.0 - 95.6 Luteal phase 1.0 - 11.4 Postmenopausal 7.7 - 58.5 Performed By: #### L BCLH #### [facility] [address] [place] [address] Dr. Annie Rain PROLACTINon 10-30-2022 Prolactin 6.4 ng/mL Normal 4.8-23.3 [facility] Comment on above: Performed By: #### P ROLAC #### [facility] [address] [place], [place] [id number] Dr. Annie Rain FREE T4on 10-29-2022 Free T4 [Mass/Vol] 1.01 ng/dL Normal 0.76-1.46 [facility] Comment on above: Performed By: #### F T4 #### [facility] [address] [address] [address] Annie Rain PROF CHEM 8 (BAS METB)on Anion gap [Moles/Vol] 11.4 mmol/L Normal [facility] Comment on above: Performed By: #### U AMIC #### [facility] [address] [place] [address] Dr. Annie Rain Calcium [Mass/Vol] 9.4 mg/dL Normal 8.5-10.1 [facility] Comment on above: Performed By: #### U AMIC #### [facility] [address] [place] [address] Dr. Annie Rain Chloride [Moles/Vol] 105 mmol/L Normal 98-107 [facility] Comment on above: Performed By: #### U AMIC #### [facility] [address] [place] [address] Dr. Annie Rain CO2 [Moles/Vol] 29.6 mmol/L Normal 21.0-32.0 [facility] Comment on above: Performed By: #### U AMIC #### [facility] [address] [place] [address] Dr. Annie Rain Creatinine [Mass/Vol] 0.55 mg/dL Normal 0.55-1.02 [facility] Comment on above: Performed By: #### U AMIC #### [facility] [address] [place] [address] Dr. Annie Rain EGFR-AF SWISS >60 Normal >=60 [facility] Comment on above: Performed By: #### U AMIC #### [facility] [address] [place] [address] Dr. Annie Rain EGFR-NON AF SWISS >60 Normal >=60 [facility] Comment on above: Performed By: #### U AMIC #### [facility] [address] [address] [address] Annie Rain Glucose [Mass/Vol] 80 mg/dL Normal 74-106 [facility] Comment on above: Performed By: #### U AMIC #### [facility] [address] [address] [address] Annie Rain Potassium [Moles/Vol] 4.0 mmol/L Normal 3.5-5.1 [facility] Comment on above: Performed By: #### U AMIC #### [facility] [address] [address] [address] Annie Rain Sodium [Moles/Vol] 142 mmol/L Normal 136-145 [facility] Comment on above: Performed By: #### U AMIC #### [facility] [address] [address] [address] Annie Rain Urea nitrogen [Mass/Vol] 8.0 mg/dL Normal 7.0-18.0 [facility] Comment on above: Performed By: #### U AMIC #### [facility] [address] [address] [address] Annie Rain Urea nitrogen/Creatini ne [Mass ratio] 14.5 mg/mg Normal [facility] Comment on above: Performed By: #### U AMIC #### [facility] [address] [address] [address] Annie Rain TSHon 10-29-2022 TSH 0.404 uIU/mL Normal 0.358-3.740 [facility] Comment on above: Performed By: #### U AMIC #### [facility] [address] [address] [address] Annie Rain XR LSPINE MIN 4 [...] YENI RUST Date: 2022-08-27 07:31 Normal [facility] MRI BRAIN WO W CONon 022 [...] BARRY HO Date: 2022-08-15 22:51 Normal [facility] CREATININEon 08-15-2022 Creatinine [Mass/Vol] 0.62 mg/dL Normal 0.55-1.02 [facility] Comment on above: Performed By: #### C ARNOL #### [facility] [address] [address] [address] Annie Rain EGFR-AF SWISS >60 Normal >=60 [facility] Comment on above: Performed By: #### C ARNOL #### [facility] [address] [address] [address] Annie Rain EGFR-NON AF SWISS >60 Normal >=60 [facility] Comment on above: Performed By: #### C ARNOL #### [facility] [address] [address] [address] ABD/PELVIS WO CONon [...] YENI RUST Date: 2022-06-25 13:49 Normal [facility] CT HEAD WO CONon 06-25-2022 CT [...] PABLO MILLER Date: 2022-06-25 13:56 Normal [facility] CULTURE URINEon 06-20-2022 CULTURE URINE Culture Observations : LIGHT GROWTH OF MIXED GENITAL SILAS. NO POTENTIAL PATHOGENS SEEN. Normal [facility] Comment on above: Performed By: #### I NSGF1 #### [facility] [address] [place] [address] Dr. Annie Rain UA RANDOM W/MICROSCOPICon BACTERIA NONE SEEN Normal NONE SEEN [facility] Comment on above: Performed By: #### U AMIC #### [facility] [address] [place] [address] Dr. Annie Rain Bilirubin Ql (U) Negative Normal NEGATIVE [facility] Comment on above: Performed By: #### U AMIC #### [facility] [address] [place] [address] Dr. Annie Rain CAST NONE SEEN Normal NONE SEEN [facility] Comment on above: Performed By: #### U AMIC #### [facility] [address] [place] [address] Dr. Annie Rain Clarity (U) CLEAR Normal CLEAR [facility] Comment on above: Performed By: #### U AMIC #### [facility] [address] [place] [address] Dr. Annie Rain Color (U) YELLOW Normal YELLOW [facility] Comment on above: Performed By: #### U AMIC #### [facility] [address] [place] [address] Dr. Annie Rain Crystals LM Nom (Urine sed) NONE SEEN Normal NONE SEEN [facility] Comment on above: Performed By: #### U AMIC #### [facility] [address] [address] [address] Annie Rain Epithelial cells LM Ql (Urine sed) RARE Normal NONE SEEN /RARE [facility] Comment on above: Performed By: #### U AMIC #### [facility] [address] [address] [address] Annie Rain Glucose Ql (U) Negative Normal NEGATIVE [facility] Comment on above: Performed By: #### U AMIC #### [facility] [address] [address] [address] Annie Rain Hemoglobin Ql (U) SMALL Abnormal NEGATIVE [facility] Comment on above: Performed By: #### U AMIC #### [facility] [address] [address] [address] Annie Rain Ketones Ql (U) TRACE Abnormal NEGATIVE [facility] Comment on above: Performed By: #### U AMIC #### [facility] [address] [address] [address] Annie Rain LEUKOCYTES Negative Normal NEGATIVE [facility] Comment on above: Performed By: #### U AMIC #### [facility] [address] [address] [address] Annie Rain MUCOUS NONE SEEN Normal NONE SEEN [facility] Comment on above: Performed By: #### U AMIC #### [facility] [address] [address] [address] Annie Rain Nitrite Ql (U) Negative Normal NEGATIVE [facility] Comment on above: Performed By: #### U AMIC #### [facility] [address] [address] [address] Annie Rain pH (U) 6.5 [pH] Normal 5-9 [facility] Comment on above: Performed By: #### U AMIC #### [facility] [address] [address] [address] Annie Rain RBC 2-5 Abnormal 0-2 [facility] Comment on above: Performed By: #### U AMIC #### [facility] [address] [address] [address] Annie Rain SPEC GRAVITY 1.020 Normal 1.005-<=1.025 [facility] Comment on above: Performed By: #### U AMIC #### [facility] [address] [address] [address] Annie Rain UA PROTEIN Negative Normal NEGATIVE/ TRACE [facility] Comment on above: Performed By: #### U AMIC #### [facility] [address] [address] [address] Annie Rain Urobilinogen Qn (U) 1.0 {Willam'U}/dL Normal 0.2 - 1.0 [facility] Comment on above: Performed By: #### U AMIC #### [facility] [address] [address] [address] Annie Rain WBC 0-2 Abnormal NONE SEEN [facility] Comment on above: Performed By: #### U AMIC #### [facility] [address] [address] [address] CHEST WO CONon [...] YENI RUST Date: 2022-06-08 13:10 Normal [facility] CULTURE URINEon 05-30-2022 CULTURE URINE Culture Observations : NO GROWTH. Normal [facility] Comment on above: Performed By: #### I NSGF1 #### [facility] [address] [place] [address] Dr. Annie Rain UA RANDOM W/MICROSCOPICon BACTERIA TRACE Abnormal NONE SEEN [facility] Comment on above: Performed By: #### U AMIC #### [facility] [address] [place] [address] Dr. Annie Rain Bilirubin Ql (U) Negative Normal NEGATIVE [facility] Comment on above: Performed By: #### U AMIC #### [facility] [address] [place] [address] Dr. Annie Rain CAST NONE SEEN Normal NONE SEEN [facility] Comment on above: Performed By: #### U AMIC #### [facility] [address] [place] [address] Dr. Annie Rain Clarity (U) CLEAR Normal CLEAR [facility] Comment on above: Performed By: #### U AMIC #### [facility] [address] [place] [address] Dr. Annie Rani Color (U) LT. YELLOW Normal YELLOW [facility] Comment on above: Performed By: #### U AMIC #### [facility] [address] [place] [address] Dr. Annie Rain Crystals LM Nom (Urine sed) NONE SEEN Normal NONE SEEN [facility] Comment on above: Performed By: #### U AMIC #### [facility] [address] [place] [address] Dr. Annie Rain Epithelial cells LM Ql (Urine sed) RARE Normal NONE SEEN /RARE [facility] Comment on above: Performed By: #### U AMIC #### [facility] [address] [address] [address] Annie Rain Glucose Ql (U) Negative Normal NEGATIVE [facility] Comment on above: Performed By: #### U AMIC #### [facility] [address] [address] [address] Annie Rani Hemoglobin Ql (U) Negative Normal NEGATIVE [facility] Comment on above: Performed By: #### U AMIC #### [facility] [address] [address] [address] Annie Rain Ketones Ql (U) Negative Normal NEGATIVE [facility] Comment on above: Performed By: #### U AMIC #### [facility] [address] [place] [address] Dr. Annie Rain LEUKOCYTES Negative Normal NEGATIVE [facility] Comment on above: Performed By: #### U AMIC #### [facility] [address] [address] [address] Annie Rain MUCOUS NONE SEEN Normal NONE SEEN [facility] Comment on above: Performed By: #### U AMIC #### [facility] [address] [address] [address] Annie Rain Nitrite Ql (U) Negative Normal NEGATIVE [facility] Comment on above: Performed By: #### U AMIC #### [facility] [address] [address] [address] Annie Rain pH (U) 6.0 [pH] Normal 5-9 [facility] Comment on above: Performed By: #### U AMIC #### [facility] [address] [address] [address] Annie Rain RBC 0-2 Normal 0-2 [facility] Comment on above: Performed By: #### U AMIC #### [facility] [address] [place] [address] Dr. Annie Rain SPEC GRAVITY <=1.005 Abnormal 1.005-<=1.025 [facility] Comment on above: Performed By: #### U AMIC #### [facility] [address] [address] [address] Annie Rain UA PROTEIN Negative Normal NEGATIVE/ TRACE [facility] Comment on above: Performed By: #### U AMIC #### [facility] [address] [address] [address] Annie Rain Urobilinogen Qn (U) 0.2 {Willam'U}/dL Normal 0.2 - 1.0 [facility] Comment on above: Performed By: #### U AMIC #### [facility] [address] [address] [address] Annie Rain WBC 0-2 Abnormal NONE SEEN [facility] Comment on above: Performed By: #### U AMIC #### [facility] [address] [address] [address] Annie Rain [facility]16 SARS-CoV-2 (COVID-19) RNA GREGOR+probe Ql (Unsp spec) Detected Critically abnormal NOT DETECTED [facility] Comment on above: Result Comment: This test is not yet approved or cleared by the [place] FDA. When there are no FDA-approved or cleared tests available, and other criteria are met, FDA can make tests available under an emergency access mechanism called an Emergency Use Authorization (EUA). The EUA for this test is supported by the [place] of Health and Human Service's declaration that [...] used). Performed By: #### I NSGF1 #### [facility] [address] [place] [address] Dr. Annie Rain MRI BRAIN WO W [...] prior studies available for comparison. Normal [facility] BUNon 02-05-2022 Urea nitrogen [Mass/Vol] 13.0 mg/dL Normal 7.0-18.0 [facility] Comment on above: Performed By: #### C ARNOL, BUN #### [facility] [address] [address] [address] Annie Rain CREATININEon 02-05-2022 Creatinine [Mass/Vol] 0.70 mg/dL Normal 0.55-1.02 [facility] Comment on above: Performed By: #### I NSGF1 #### [facility] [address] [address] [address] Annie Rain EGFR-AF SWISS >60 Normal >=60 [facility] Comment on above: Performed By: #### I NSGF1 #### [facility] [address] [address] [address] Annie Rain EGFR-NON AF SWISS >60 Normal >=60 [facility] Comment on above: Performed By: #### I NSGF1 #### [facility] [address] [address] [address] Annie Rain XR pelvis 1-2Von 09-14-2021 XR pelvis 1-2V [facility] [place] [address] XRay Report Signed Patient: Sherie Cunningham MR#: [id number] 89 : 1955 Acct:[id number] Age/Sex: 66 / F ADM Date: 09/14/21 Loc: ICXD Room: Type: [facility] Attending Dr: Nichelle Bailey II, MD Ordering Provider: Nichelle Bailey MD Date of Service: 09/14/21 XR/XR knee RT 4V*: M25.561 ([id number]) XR/XR pelvis 1-2V: M25.561 Copies to: Nichelle [...] Cedric Caal M.D.09/14/2021 11:59 AM Dictation Location: [place] [address] Transcribed By: [facility] 09/14/21 1159 Dictated By: Cedric Caal DO 09/14/21 1118 Signed By: 09/14/21 1159 Normal [facility] MR head/brain wo/w conon MR head/brain wo/w con [facility] [address] [place] [id number] MRI Report Signed Patient: Sherie Cunningham MR#: [id number] : 1955 Acct:[id number] Age/Sex: 65 / F ADM Date: 11/07/20 Loc: MR Room: Type: [facility] Attending Dr: Barry Woodson MD Ordering [...] Remberto Coulter M.D.11/08/2020 11:48 AM Dictation Location: [place] [address] Transcribed By: [facility] 11/08/20 1148 Dictated By: Remberto Coulter II, MD 11/08/20 1135 Signed By: 11/08/20 1148 Normal [facility] ISTAT XRay CREon 11-07-2020 Creatinine [Mass/Vol] 0.6 mg/dL Normal 0.6-1.3 [facility] Comment on above: Result Comment: ER/E SD physician is notified/shown all ISTAT results. Critical values may be confirmed by laboratory testing if deemed necessary by ER attending doctor. Performed By: #### I SCRE #### [address] Point of Care testing , ISTAT GFR ( > 60 Normal [facility] Comment on above: Result Comment: GFR estimated reference range: According to KDOQI guidelines, <60 ml/min/1.73m2 is sufficient to diagnose a patient with chronic kidney disease. PERFORMED BY: [place] [address] PATHOLOGIST CHILDREN COUNSELOR MARK SERRATO M.D. Performed By: #### I SCRE #### [address] Point of Care testing , ISTAT GFR (Non- Am > 60 Normal [facility] Comment on above: Performed By: #### I SCRE #### [address] Point of Care testing , Vital Signs Date Time Vital Sign Value Performing Clinician Vernon cota 04-19-2022 12:15-0400 Body height 162.56 cm Nichelle Colfax II Other [employer] Other 04-19-2022 12:15-0400 Body mass index (BMI) [Ratio] 27.46 kg/m2 Nichelle Colfax II Other [facility] Other 04-19-2022 12:15-0400 Body weight 72.58 kg Nichelle Colfax II Other [facility] Other 01-18-2022 10:15-0400 Body height 162.56 cm Nichelle Colfax II Other [employer] Other 01-18-2022 10:15-0400 Body mass index (BMI) [Ratio] 27.98 kg/m2 Nichelle Colfax II Other [facility] Other 01-18-2022 10:15-0400 Body weight 73.94 kg Nichelle Sorin II Other [employer] Other 01-03-2022 12:45-0400 Body height 162.56 cm Nichelle Colfax II Other [facility] Other 01-03-2022 12:45-0400 Body mass index (BMI) [Ratio] 27.98 kg/m2 Nichelle Colfax II Other [facility] Other 01-03-2022 12:45-0400 Body weight 73.94 kg Nichelle Colfax II Other [facility] Other 09-14-2021 10:00-0500 Body height 162.56 cm Nichelle Colfax II Other [employer] Other 09-14-2021 10:00-0500 Body mass index (BMI) [Ratio] 27.63 kg/m2 Nichelle Colfax II Other [facility] Other 09-14-2021 10:00-0500 Body weight 73.03 kg Nichelle Bailey II Other [employer] Other Encounters Encounter Date Encounter Type Care Provider Facility Start: 10-17-2023 End: 10-17-2023 ambulatory HAY ROOPA [facility] Start: 03-25-2023 End: 03-25-2023 ambulatory DANIEL RENLANIE [facility] Start: 10-29-2022 End: 10-30-2022 ambulatory JOSSIE CIFUENTES [...] End: 04-19-2022 ambulatory Nichelle Bailey II Other [facility] Other Start: 04-19-2022 Office outpatient visit 25 minutes Nichelle Bailey II [facility] Start: 04-03-2022 End: 04-03-[address] GREG ALEMAN Facility:[facility] Start: 02-05-2022 End: 02-06-2022 ambulatory AUDELIA UNGER Facility:[facility] Start: 01-29-2022 End: 03-05-2022 ambulatory NICHELLE BAILEY Facility:[facility] Start: 01-18-2022 End: 01-18-2022 ambulatory Nichelle Colfax II Other [facility] Other Start: 01-18-2022 Office outpatient visit 25 minutes Nichelle Colfax II [facility] Start: 01-03-2022 End: 01-03-2022 ambulatory Nichelle Colfax II Other [facility] Start: 01-03-2022 Office outpatient visit 15 minutes Nichelle Colfax II [facility] Start: 09-14-2021 End: 09-14-2021 ambulatory Nichelle Sorin II Other [facility] Start: 09-14-2021 Office outpatient ne w 30 minutes Nichelle Colfax II [facility] Payers Date Payer Category Payer Medicaid [id number] 2. [id number] 1957 Medicare [id number] 2.1 [id number] 1957 Unknown [id number] 2.1 [id number] 1957 Unknown [id number] 2.16.84 0.1.779564.3.579.2.59 1957 Unknown [id number] 2.16.84 0.1.489707.3.579.2.59 1957 Unknown [id number] 2.16.84 0.1.985596.3.579.2.593 1957 Unknown [id number] 2.16.84 0.1.263994.3.579.2.59 1957 Unknown [id number] 2.16.84 0.1.525549.3.579.2.593 1957 Unknown [id number] 2.16.84 0.1.305686.3.579.2.593 1957 Unknown [id number] 2.16.84 0.1.206459.3.579.2.593 1957 Unknown [id number] 2.16.84 0.1.040263.3.579.2.593 1957 Unknown [id number] 2.16.84 0.1.282918.3.579.2.593 1957 Unknown [id number] 2.16.84 0.1.688498.3.579.2.593 1957 Unknown [id number] 2.16.84 0.1.265513.3.579.2.593 Social History Date Type Detail Facility Sex Assigned At [facility] Other Clinical Notes 09-14-2021 to 10-17-2023 Note Date & Type Note Facility 10-17-2023 Note Lipids elevated and pt prefers to start with diet and lifestyle modifications Will repeat lipid level in 3 months to re-evaluate [facility] 10-17-2023 Note Hypertension is elev ated in office, she is adamant that b/p is well controlled at home. Staff to call pt in 1-2 weeks to review b/p log. Continue lisinopril 5 mg daily- she reports a dry cough but states this is r/t her lung disease- we discussed side effect of lisinopril can be cough and she voiced understanding. [facility] 10-17-2023 Note Stable continue all medications [facility] 10-17-2023 Note [facility] ESS NOTE [...] wall motion abnor (more content not included)... [facility] 10-17-2023 Note Patient here for 6 m [...] All other systems reviewed and are negative. [facility] 03-25-2023 Note [place] [facility] - [facility] Subjective Sherie Cunningham is a 67 [...] right sided pressu (more content not included)... [facility] 06-25-2022 Note PROCEDURE: CT CSPINE WO CON [...] authenticated by: YENI RUST Date: 2022-06-25 13:55 [facility] 06-25-2022 Note PROCEDURE: XR HAND L [...] by: BARRY HO Date: 2022-06-25 13:49 [facility] 04-19-2022 Evaluation note Encounter Date Diagnosis [...] we will get a lumbar spine x-ray. [facility] 05-05-2022 Evaluation note* Encounter Date Diagnosis [...] a viscosupplementation. 6. Follow up 3 months [facility] 04-20-2022 Evaluation note* Encounter Date Diagnosis [...] knee compared to a partial knee replacement. [facility] 12-30-2021 Evaluation note* Encounter Date Diagnosis [...] this well. 5. Follow up 3 months [facility] Other History general Narrative - Reported* Type Description Date Medical History COPD Medical History emphysema Medical History migraine headache Medical History Panic attacks Surgical History thyroidectomy-partial Surgical History hysterectomy Surgical History oophorectomy Surgical History eye surgery Hospitalization History pneumonia Hospitalization History chest pain 04/2021 [facility] Other Summary Purpose Family History No Family History Records FoundNo Family History Records FoundNo Family History Records FoundNo Family History Records Found Advance Directives No Advanced Directives Records FoundNo Advanced Directives Records FoundNo Advanced Directives Records FoundNo Advanced Directives Records Found Additional Source Comments INFORMATION SOURCE (unrecogn ized section and content) DATE CREATED AUTHOR 11/12/2020 [facility] DATE CREATED AUTHOR AUTHOR'S ORGANIZ ATION 12/04/2021 [facility] DATE CREATED AUTHOR AUTHOR'S ORGANIZ ATION 11/03/2022 [facility] DATE CREATED AUTHOR AUTHOR'S ORGANIZ ATION 10/18/2023 [facility] REASON FOR VISIT [...] BE BASED ON THE PRIMARY CLINICAL RECORDS. [employer] [facility] provides no warranty or guarantee of the accuracy or completeness of information in this document.
== END 2024-01-13 07:04 | disposition home or self-care (01) ==
LOC: US 07:03
PROVIDERS: PCP Family Medicine; Visit Provider Family Medicine
DX: R10.11 Right upper quadrant pain (principal); R10.32 Left lower quadrant pain
CPT/HCPCS: 76705

== ENCOUNTER 2024-01-24 09:21 | Outpatient (OUT) | payer MEDICARE, MEDICAID, SELFPAY ==
--- NOTE | 2024-01-24 09:20 | NM_ITS ---
The [address] [address] Patient Name: OUMAR CHEN MRN: [id number] date: 1955 Sex: F Assigned Patient Location: [place] Current Patient Location: [place] Accession/Order Number: [id number] Exam Date: 01/24/2024 09:20 Report Date: 01/24/2024 15:46 At the request of: GREG PETERSON Procedure: [place] hepatobiliary w pharm EXAMINATION: [place] hepatobiliary w pharm HISTORY: ABDOMINAL PAIN, NAUSEA COMPARISON: No relevant comparison available. TECHNIQUE: Radionuclide hepatobiliary imaging was performed after intravenous injection of 5.1 mCi Tc-99m STANISLAW derivative with sequential acquisitions every 1 minute for one hour. Hepatobiliary imaging with gallbladder ejection fraction analysis was then performed with sequential imaging every 1 minute for 60 minutes following ingestion of 8 oz. Ensure Plus. FINDINGS: LIVER: Normal, prompt and uniform radiotracer uptake and clearing. BILIARY DUCTS: Normal radioisotopic biliary excretion. GALLBLADDER: Normal with no evidence of cystic duct obstruction. INTESTINE: Normal with no evidence of common biliary ductal obstruction. EJECTION FRACTION: 77 % within 60 minutes. (Normal EF > 38%). OTHER: Negative. KS/[place] hepatobiliary w pharm IMPRESSION: 1. Normal nuclear medicine HIDA scan. Electronically authenticated by: SOHAM HO Date: 01/24/2024 15:46
--- OUTSIDE RECORDS SUMMARY | 2024-01-24 09:35 | XMS_ITS | CCD ---
Author Organization [facility] Care Team Providers Care Form Worker Name Role Phone Nichelle Bailey II Unavailable [phone] RON CURTIS Attending Unavailable NICHOLAS, DR [...] extract; Translations: [COCONUT] Drug Allergy 09-11-2014 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 Family History Problem Relation Age of Onset Anemia Mother Breast cancer Mother Diabetes Mother Hypertension Mother Hyperlipidemia Mother Coronary artery disease Father Diabetes Father Hypertension Father Hyperlipidemia Father Stroke Paternal Grandmother Coronary artery disease Paternal Grandmother Family Status - Relation Status Age at Mother Father Paternal Grandmother Level of Service:92577 [place] OFFICE/OUTPATIENT ESTABLISHED MOD MDM 30 MIN Normal [facility] Office Visiton 03-25-2023 Follow-up visit [id number] Sam Cunningham 1955 Date Provider Department Center 03/25/2023 DANIEL Y[address] [facility] Family History Problem Relation Age of Onset Anemia Mother Breast cancer Mother Diabetes Mother Hypertension Mother Hyperlipidemia Mother Coronary artery disease Father Diabetes Father Hypertension Father Hyperlipidemia Father Stroke Paternal Grandmother Coronary artery disease Paternal Grandmother Family Status - Relation Status Age at Mother Father Paternal Grandmother Level of Service:20671 FL OFFICE/OUTPATIENT ESTABLISHED MOD MDM 30-39 MIN Reason for Visit and Comments: Follow-up [020493] Normal [facility] ACTH, PLASMAon 10-30-2022 ACTH, Plasma 16.7 pg/mL Normal 7.2-63.3 [facility] Comment on above: Result Comment: ACTH reference interval for samples collected between 7 and 10 AM. Performed By: #### U [facility] #### [facility] Laboratory [address] [place] [address] Dr. Annie Rain CORTISOLon 10-30-2022 Cortisol 4.7 ug/dL Normal [facility] Comment on above: Result Comment: Gurdeep isol AM 6.2 - 19.4 Cortisol PM 2.3 - 11.9 Performed By: #### C ORTISO #### [facility] Laboratory [address] [place] [address] Dr. Annie Rain FSHon 10-30-2022 FSH 57.8 mIU/mL Normal [facility] Comment on above: Result Comment: Adul t Female: Follicular phase 3.5 - 12.5 Ovulation phase 4.7 - 21.5 Luteal phase 1.7 - 7.7 Postmenopausal 25.8 - 134.8 Performed By: #### L BCFSH #### [facility] Laboratory [address] [place] [address] Dr. Annie Rain GROWTH HORMONEon 10-30-2022 Growth Hormone, Serum 1.5 ng/mL Normal 0.0-10.0 [facility] Comment on above: Performed By: #### U AMIC #### [facility] [address] [place] [address] Dr. Annie Rain VNXRMKR-VDTM-GZHAPR-FACTOR 1 on 10-30-2022 Insulin-Like Growth Factor I 94 ng/mL Normal 57-202 [facility] Comment on above: Performed By: #### I NSGF1 #### [facility] [address] [place] [address] Dr. Annie Rain LUTEINIZING HORMONE (LH)on 0 10-30-2022 LH 22.1 mIU/mL Normal [facility] Comment on above: Result Comment: Adul t Female: Follicular phase 2.4 - 12.6 Ovulation phase 14.0 - 95.6 Luteal phase 1.0 - 11.4 Postmenopausal 7.7 - 58.5 Performed By: #### L BCLH #### [facility] [address] [place] [address] Dr. Annie Rain PROLACTINon 10-30-2022 Prolactin 6.4 ng/mL Normal 4.8-23.3 [facility] Comment on above: Performed By: #### P ROLAC #### [facility] Laboratory [address] [place], [place] [id number] Dr. Annie Rain FREE T4on 10-29-2022 Free T4 [Mass/Vol] 1.01 ng/dL Normal 0.76-1.46 [facility] Comment on above: Performed By: #### F T4 #### [facility] Laboratory [address] [address] [address] Annie Rain PROF CHEM 8 (BAS METB)on Anion gap [Moles/Vol] 11.4 mmol/L Normal [facility] Comment on above: Performed By: #### U AMIC #### [facility] Laboratory [address] [place] [address] Dr. Annie Rain Calcium [Mass/Vol] 9.4 mg/dL Normal 8.5-10.1 [facility] Comment on above: Performed By: #### U AMIC #### [facility] [address] [place] [address] Dr. Annie Rain Chloride [Moles/Vol] 105 mmol/L Normal 98-107 [facility] Comment on above: Performed By: #### U AMIC #### [facility] [address] [place] [address] Dr. Annie Rain CO2 [Moles/Vol] 29.6 mmol/L Normal 21.0-32.0 [facility] Comment on above: Performed By: #### U AMIC #### [facility] [address] [place] [address] Dr. Annie Rain Creatinine [Mass/Vol] 0.55 mg/dL Normal 0.55-1.02 [facility] Comment on above: Performed By: #### U AMIC #### [facility] [address] [place] [address] Dr. Annie Rain EGFR-AF CHINESE >60 Normal >=60 [facility] Comment on above: Performed By: #### U AMIC #### [facility] [address] [place] [address] Dr. Annie Rain EGFR-NON AF CHINESE >60 Normal >=60 [facility] Comment on above: Performed By: #### U AMIC #### [facility] [address] [address] [address] Annie Rain Glucose [Mass/Vol] 80 mg/dL Normal 74-106 [facility] Comment on above: Performed By: #### U AMIC #### [facility] [address] [address] [address] Annie Rain Potassium [Moles/Vol] 4.0 mmol/L Normal 3.5-5.1 [facility] Comment on above: Performed By: #### U AMIC #### [facility] [address] [address] [address] Annie Rain Sodium [Moles/Vol] 142 mmol/L Normal 136-145 [facility] Comment on above: Performed By: #### U AMIC #### [facility] [address] [address] [address] Annie Rain Urea nitrogen [Mass/Vol] 8.0 mg/dL Normal 7.0-18.0 [facility] Comment on above: Performed By: #### U AMIC #### [facility] [address] [address] [address] Annie Rain Urea nitrogen/Creatini ne [Mass ratio] 14.5 mg/mg Normal [facility] Comment on above: Performed By: #### U AMIC #### [facility] [address] [address] [address] Annie Rain TSHon 10-29-2022 TSH 0.404 uIU/mL Normal 0.358-3.740 [facility] Comment on above: Performed By: #### U AMIC #### [facility] [address] [address] [address] Annie Rain XR LSPINE MIN 4 [...] YENI RUST Date: 2022-08-27 07:31 Normal [facility] MRI BRAIN WO W CONon 022 MRI [...] BARRY HO Date: 2022-08-15 22:51 Normal [facility] CREATININEon 08-15-2022 Creatinine [Mass/Vol] 0.62 mg/dL Normal 0.55-1.02 [facility] Comment on above: Performed By: #### C ARNOL #### [facility] [address] [address] [address] Annie Rain EGFR-AF CHINESE >60 Normal >=60 [facility] Comment on above: Performed By: #### C ARNOL #### [facility] [address] [address] [address] Annie Rain EGFR-NON AF CHINESE >60 Normal >=60 [facility] Comment on above: Performed By: #### C ARNOL #### [facility] [address] [address] ABD/PELVIS WO CONon [...] YENI RUST Date: 2022-06-25 13:49 Normal [facility] CT HEAD WO CONon 06-25-2022 CT HEAD [...] PABLO MILLER Date: 2022-06-25 13:56 Normal [facility] CULTURE URINEon 06-20-2022 CULTURE URINE Culture Observations : LIGHT GROWTH OF MIXED GENITAL SILAS. NO POTENTIAL PATHOGENS SEEN. Normal [facility] Comment on above: Performed By: #### I NSGF1 #### [facility] [address] [place] [address] Dr. Annie Rain UA RANDOM W/MICROSCOPICon BACTERIA NONE SEEN Normal NONE SEEN [facility] Comment on above: Performed By: #### U AMIC #### [facility] [address] [place] [address] Dr. Annie Rain Bilirubin Ql (U) Negative Normal NEGATIVE [facility] Comment on above: Performed By: #### U AMIC #### [facility] [address] [place] [address] Dr. Annie Rain CAST NONE SEEN Normal NONE SEEN [facility] Comment on above: Performed By: #### U AMIC #### [facility] [address] [place] [address] Dr. Annie Rain Clarity (U) CLEAR Normal CLEAR [facility] Comment on above: Performed By: #### U AMIC #### [facility] [address] [place] [address] Dr. Annie Rain Color (U) YELLOW Normal YELLOW [facility] Comment on above: Performed By: #### U AMIC #### [facility] [address] [place] [address] Dr. Annie Rain Crystals LM Nom (Urine sed) NONE SEEN Normal NONE SEEN [facility] Comment on above: Performed By: #### U AMIC #### [facility] [address] [address] [address] Annie Rain Epithelial cells LM Ql (Urine sed) RARE Normal NONE SEEN /RARE [facility] Comment on above: Performed By: #### U AMIC #### [facility] [address] [address] [address] Annie Rain Glucose Ql (U) Negative Normal NEGATIVE [facility] Comment on above: Performed By: #### U AMIC #### [facility] [address] [address] [address] Annie Rain Hemoglobin Ql (U) SMALL Abnormal NEGATIVE [facility] Comment on above: Performed By: #### U AMIC #### [facility] [address] [address] [address] Annie Rain Ketones Ql (U) TRACE Abnormal NEGATIVE [facility] Comment on above: Performed By: #### U AMIC #### [facility] [address] [address] [address] Annie Rain LEUKOCYTES Negative Normal NEGATIVE [facility] Comment on above: Performed By: #### U AMIC #### [facility] [address] [address] [address] Annie Rain MUCOUS NONE SEEN Normal NONE SEEN [facility] Comment on above: Performed By: #### U AMIC #### [facility] [address] [address] [address] Annie aRin Nitrite Ql (U) Negative Normal NEGATIVE [facility] Comment on above: Performed By: #### U AMIC #### [facility] [address] [address] [address] Annie Rain pH (U) 6.5 [pH] Normal 5-9 [facility] Comment on above: Performed By: #### U AMIC #### [facility] [address] [address] [address] Annie Rain RBC 2-5 Abnormal 0-2 [facility] Comment on above: Performed By: #### U AMIC #### [facility] [address] [address] [address] Annie Rain SPEC GRAVITY 1.020 Normal 1.005-<=1.025 [facility] Comment on above: Performed By: #### U AMIC #### [facility] [address] [address] [address] Annie Rain UA PROTEIN Negative Normal NEGATIVE/ TRACE [facility] Comment on above: Performed By: #### U AMIC #### [facility] [address] [address] [address] Annie Rain Urobilinogen Qn (U) 1.0 {Willam'U}/dL Normal 0.2 - 1.0 [facility] Comment on above: Performed By: #### U AMIC #### [facility] [address] [address] [address] Annie Rain WBC 0-2 Abnormal NONE SEEN [facility] Comment on above: Performed By: #### U AMIC #### [facility] [address] [address] CHEST WO CONon [...] YENI RUST Date: 2022-06-08 13:10 Normal [facility] CULTURE URINEon 05-30-2022 CULTURE URINE Culture Observations : NO GROWTH. Normal [facility] Comment on above: Performed By: #### I NSGF1 #### [facility] [address] [place] [address] Dr. nAnie Rain UA RANDOM W/MICROSCOPICon BACTERIA TRACE Abnormal NONE SEEN [facility] Comment on above: Performed By: #### U AMIC #### [facility] [address] [place] [address] Dr. Annie Rain Bilirubin Ql (U) Negative Normal NEGATIVE [facility] Comment on above: Performed By: #### U AMIC #### [facility] [address] [place] [address] Dr. Annie Rain CAST NONE SEEN Normal NONE SEEN [facility] Comment on above: Performed By: #### U AMIC #### [facility] [address] [place] [address] Dr. Annie Rain Clarity (U) CLEAR Normal CLEAR [facility] Comment on above: Performed By: #### U AMIC #### [facility] [address] [place] [address] Dr. Annie Rain Color (U) LT. YELLOW Normal YELLOW [facility] Comment on above: Performed By: #### U AMIC #### [facility] [address] [place] [address] Dr. Annie Rain Crystals LM Nom (Urine sed) NONE SEEN Normal NONE SEEN [facility] Comment on above: Performed By: #### U AMIC #### [facility] [address] [place] [address] Dr. Annie Rain Epithelial cells LM Ql (Urine sed) RARE Normal NONE SEEN /RARE [facility] Comment on above: Performed By: #### U AMIC #### [facility] [address] [address] [address] Annie Rain Glucose Ql (U) Negative Normal NEGATIVE [facility] Comment on above: Performed By: #### U AMIC #### [facility] [address] [address] [address] Annie Rain Hemoglobin Ql (U) Negative Normal NEGATIVE [facility] Comment on above: Performed By: #### U AMIC #### [facility] [address] [address] [address] Annie Rain Ketones Ql (U) Negative Normal NEGATIVE [facility] Comment on above: Performed By: #### U AMIC #### [facility] [address] [place] [address] Dr. Annie Rain LEUKOCYTES Negative Normal NEGATIVE [facility] Comment on above: Performed By: #### U AMIC #### [facility] [address] [address] [address] Annie Rain MUCOUS NONE SEEN Normal NONE SEEN [facility] Comment on above: Performed By: #### U AMIC #### [facility] [address] [address] [address] Annie Rain Nitrite Ql (U) Negative Normal NEGATIVE [facility] Comment on above: Performed By: #### U AMIC #### [facility] [address] [address] [address] Annie Rain pH (U) 6.0 [pH] Normal 5-9 [facility] Comment on above: Performed By: #### U AMIC #### [facility] [address] [address] [address] Annie Rain RBC 0-2 Normal 0-2 [facility] Comment on above: Performed By: #### U AMIC #### [facility] [address] [place] [address] Dr. Annie Rain SPEC GRAVITY <=1.005 Abnormal 1.005-<=1.025 [facility] Comment on above: Performed By: #### U AMIC #### [facility] [address] [address] [address] Annie Rain UA PROTEIN Negative Normal NEGATIVE/ TRACE [facility] Comment on above: Performed By: #### U AMIC #### [facility] [address] [address] [address] Annie Rain Urobilinogen Qn (U) 0.2 {Willam'U}/dL Normal 0.2 - 1.0 [facility] Comment on above: Performed By: #### U AMIC #### [facility] [address] [address] [address] Annie Rain WBC 0-2 Abnormal NONE SEEN [facility] Comment on above: Performed By: #### U AMIC #### [facility] [address] [address] [address] Annie Rain [facility]16 SARS-CoV-2 (COVID-19) RNA GREGOR+probe Ql (Unsp spec) Detected Critically abnormal NOT DETECTED [facility] Comment on above: Result Comment: This test is not yet approved or cleared by the [place] FDA. When there are no FDA-approved or cleared tests available, and other criteria are met, FDA can make tests available under an emergency access mechanism called an Emergency Use Authorization (EUA). The EUA for this test is supported by the [place] of Health and Human Service's declaration that [...] used). Performed By: #### I NSGF1 #### [facility] [address] [place] [address] Dr. Annie Rain MRI BRAIN WO W [...] prior studies available for comparison. Normal [facility] BUNon 02-05-2022 Urea nitrogen [Mass/Vol] 13.0 mg/dL Normal 7.0-18.0 [facility] Comment on above: Performed By: #### C ARNOL, BUN #### [facility] [address] [address] [address] Annie Rain CREATININEon 02-05-2022 Creatinine [Mass/Vol] 0.70 mg/dL Normal 0.55-1.02 [facility] Comment on above: Performed By: #### I NSGF1 #### [facility] [address] [address] [address] Annie Rain EGFR-AF CHINESE >60 Normal >=60 [facility] Comment on above: Performed By: #### I NSGF1 #### [facility] [address] [address] [address] Annie Rain EGFR-NON AF CHINESE >60 Normal >=60 [facility] Comment on above: Performed By: #### I NSGF1 #### [facility] [address] [address] [address] Annie Rain XR pelvis 1-2Von 09-14-2021 XR pelvis 1-2V [facility] [place] [address] XRay Report Signed Patient: Sherie Cunningham MR#: [id number] : 1955 Acct:[id number] Age/Sex: 66 / F ADM Date: 09/14/21 Loc: ICXD Room: Type: [facility] Attending Dr: Nichelle Bailey II, MD Ordering Provider: Nichelle Bailey MD Date of Service: 09/14/21 XR/XR knee RT 4V*: M25.561 ([id number]) XR/XR pelvis 1-2V: M25.561 Copies to: Nichelle [...] Cedric Caal M.D.09/14/2021 11:59 AM Dictation Location: [place] [address] Transcribed By: [facility] 09/14/21 1159 Dictated By: Cedric Caal DO 09/14/21 1118 Signed By: 09/14/21 1159 Normal [facility] MR head/brain wo/w conon MR head/brain wo/w con [facility] [place] [id number] MRI Report Signed Patient: Sherie Cunningham MR#: [id number] : 1955 Acct:[id number] Age/Sex: 65 / F ADM Date: 11/07/20 Loc: MR Room: Type: [facility] Attending Dr: Barry Woodson MD Ordering Provider: [...] Remberto Coulter M.D.11/08/2020 11:48 AM Dictation Location: [place] [address] Transcribed By: [facility] 11/08/20 1148 Dictated By: Remberto Coulter II, MD 11/08/20 1135 Signed By: 11/08/20 1148 Normal [facility] ISTAT XRay CREon 11-07-2020 Creatinine [Mass/Vol] 0.6 mg/dL Normal 0.6-1.3 [facility] Comment on above: Result Comment: ER/E SD physician is notified/shown all ISTAT results. Critical values may be confirmed by laboratory testing if deemed necessary by ER attending doctor. Performed By: #### I SCRE #### [address] Point of Care testing , ISTAT GFR ( > 60 Normal [facility] Comment on above: Result Comment: GFR estimated reference range: According to KDOQI guidelines, <60 ml/min/1.73m2 is sufficient to diagnose a patient with chronic kidney disease. PERFORMED BY: [place] [address] PATHOLOGIST STEWARD/[employer] MARK SERRATO M.D. Performed By: #### I SCRE #### [address] Point of Care testing , ISTAT GFR (Non- Am > 60 Normal [facility] Comment on above: Performed By: #### I SCRE #### [address] Point of Care testing , Vital Signs Date Time Vital Sign Value Performing Clinician Vernon cota 04-19-2022 12:15-0400 Body height 162.56 cm Nichelle [place] II Other [facility] Other 04-19-2022 12:15-0400 Body mass index (BMI) [Ratio] 27.46 kg/m2 Nichelle Sorin II Other [facility] Other 04-19-2022 12:15-0400 Body weight 72.58 kg Nichelle [place] II Other [facility] Other 01-18-2022 10:15-0400 Body height 162.56 cm Nichelle Sorin II Other [facility] Other 01-18-2022 10:15-0400 Body mass index (BMI) [Ratio] 27.98 kg/m2 Nichelle [place] II Other [facility] Other 01-18-2022 10:15-0400 Body weight 73.94 kg Nichelle Sorin II Other [facility] Other 01-03-2022 12:45-0400 Body height 162.56 cm Nichelle [place] II Other [facility] Other 01-03-2022 12:45-0400 Body mass index (BMI) [Ratio] 27.98 kg/m2 Nichelle Sorin II Other [facility] Other 01-03-2022 12:45-0400 Body weight 73.94 kg Nichelle [place] II Other [facility] Other 09-14-2021 10:00-0500 Body height 162.56 cm Nichelle [place] II Other [facility] Other 09-14-2021 10:00-0500 Body mass index (BMI) [Ratio] 27.63 kg/m2 Nichelle [place] II Other [facility] Other 09-14-2021 10:00-0500 Body weight 73.03 kg Nichelle Bailey II Other [facility] Other Encounters Encounter Date Encounter Type Care Provider Facility Start: 10-17-2023 End: 10-17-2023 ambulatory HAY ROOPA [facility] Start: 03-25-2023 End: 03-25-2023 ambulatory DANIEL RENLANIE [facility] Start: 10-29-2022 End: 10-30-2022 ambulatory JOSSIE CIFUENTES [...] End: 04-19-2022 ambulatory Nichelle Bailey II Other [facility] Other Start: 04-19-2022 Office outpatient visit 25 minutes Nichelle Bailey II [facility] Start: 04-03-2022 End: 04-03-[address] GREG ALEMAN Facility:[facility] Start: 02-05-2022 End: 02-06-2022 ambulatory AUDELIA UNGER Facility:[facility] Start: 01-29-2022 End: 03-05-2022 ambulatory NICHELLE BAILEY Facility:[facility] Start: 01-18-2022 End: 01-18-2022 ambulatory Nichelle Sorin II Other [facility] Other Start: 01-18-2022 Office outpatient visit 25 minutes Nichelle [place] II [facility] Start: 01-03-2022 End: 01-03-2022 ambulatory Nichelle [place] II Other [facility] Other Start: 01-03-2022 Office outpatient visit 15 minutes Nichelle [place] II [facility] Start: 09-14-2021 End: 09-14-2021 ambulatory Nichelle [place] II Other [facility] Other Start: 09-14-2021 Office outpatient ne w 30 minutes Nichelle Sorin II [facility] Payers Date Payer Category Payer Medicaid [id number] 2. [id number] 1957 Medicare [id number] 2.1 [id number] 1957 Unknown [id number] 2.1 [id number] 1957 Unknown [id number] 2.16.84 0.1.636417.3.579.2.59 1957 Unknown [id number] 2.16.84 0.1.629225.3.579.2.59 1957 Unknown [id number] 2.16.84 0.1.222962.3.579.2.593 1957 Unknown [id number] 2.16.84 0.1.544893.3.579.2.59 1957 Unknown [id number] 2.16.84 0.1.664038.3.579.2.593 1957 Unknown [id number] 2.16.84 0.1.162794.3.579.2.593 1957 Unknown [id number] 2.16.84 0.1.016867.3.579.2.593 1957 Unknown [id number] 2.16.84 0.1.647918.3.579.2.593 1957 Unknown [id number] 2.16.84 0.1.203459.3.579.2.593 1957 Unknown [id number] 2.16.84 0.1.381582.3.579.2.593 1957 Unknown [id number] 2.16.84 0.1.651571.3.579.2.593 Social History Date Type Detail Facility Sex Assigned At [facility] Other Clinical Notes 09-14-2021 to 10-17-2023 Note Date & Type Note Facility 10-17-2023 Note Lipids elevated and pt prefers to start with diet and lifestyle modifications Will repeat lipid level in 3 months to re-evaluate [facility] 10-17-2023 Note Hypertension is elev ated in office, she is adamant that b/p is well controlled at home. Staff to call pt in 1-2 weeks to review b/p log. Continue lisinopril 5 mg daily- she reports a dry cough but states this is r/t her lung disease- we discussed side effect of lisinopril can be cough and she voiced understanding. [facility] 10-17-2023 Note Stable continue all medications [facility] 10-17-2023 Note [facility] PROGR ESS NOTE [...] wall motion abnor (more content not included)... [facility] 10-17-2023 Note Patient here for 6 m [...] All other systems reviewed and are negative. [facility] 03-25-2023 Note [place] [facility] Subjective Sherie Cunningham is a [...] right sided pressu (more content not included)... [facility] 06-25-2022 Note PROCEDURE: CT CSPINE WO CON [...] authenticated by: YENI RUST Date: 2022-06-25 13:55 [facility] 06-25-2022 Note PROCEDURE: XR HAND L [...] by: BARRY HO Date: 2022-06-25 13:49 [facility] 04-19-2022 Evaluation note Encounter Date Diagnosis Assessment [...] we will get a lumbar spine x-ray. [facility] Other 05-05-2022 Evaluation note* Encounter Date Diagnosis [...] a viscosupplementation. 6. Follow up 3 months [facility] Other 04-20-2022 Evaluation note* Encounter Date Diagnosis [...] knee compared to a partial knee replacement. [facility] Other 12-30-2021 Evaluation note* Encounter Date Diagnosis [...] this well. 5. Follow up 3 months [facility] Other History general Narrative - Reported* Type Description Date Medical History COPD Medical History emphysema Medical History migraine headache Medical History Panic attacks Surgical History thyroidectomy-partial Surgical History hysterectomy Surgical History oophorectomy Surgical History eye surgery Hospitalization History pneumonia Hospitalization History chest pain 04/2021 [facility] Other Summary Purpose Family History No Family History Records FoundNo Family History Records FoundNo Family History Records FoundNo Family History Records Found Advance Directives No Advanced Directives Records FoundNo Advanced Directives Records FoundNo Advanced Directives Records FoundNo Advanced Directives Records Found Additional Source Comments INFORMATION SOURCE (unrecogn ized section and content) DATE CREATED AUTHOR 11/12/2020 [facility] DATE CREATED AUTHOR AUTHOR'S ORGANIZ ATION 12/04/2021 [facility] DATE CREATED AUTHOR AUTHOR'S ORGANIZ ATION 11/03/2022 [facility] DATE CREATED AUTHOR AUTHOR'S ORGANIZ ATION 10/18/2023 [facility] REASON FOR VISIT (unrecogniz ed section [...] BE BASED ON THE PRIMARY CLINICAL RECORDS. [facility]. provides no warranty or guarantee of the accuracy or completeness of information in this document.
== END 2024-01-24 09:22 | disposition home or self-care (01) ==
LOC: NM 09:21
PROVIDERS: PCP Family Medicine; Visit Provider Family Medicine
DX: R10.30 Lower abdominal pain, unspecified (principal)
CPT/HCPCS: 78227; A9537

== ENCOUNTER 2024-04-14 07:05 | Outpatient (OUT) | payer MEDICARE, MEDICAID, SELFPAY ==
--- OUTSIDE RECORDS SUMMARY | 2024-04-14 07:07 | XMS_ITS | CCD ---
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 Name Role Phone Nichelle Bailey II Unavailable [...] [employer] Unavailable JOSSIE CIFUENTES Attending Unavailable NICHOLASDR GARZA Primary Care Unavailable ESAU, AHMAD Admitting Unavailable JOSSIE CIFUENTES Consulting Unavailable NICHELLE BAILEY Admitting Unavailable NICHELLE BAILEY Attending Unavailable DR GREG ALEMAN Primary Care Unavailable DANIEL RIBEIRO Attending Unavailable HAY BLAS Attending Unavailable Greg Aleman Primary Care Physician [phone] Pablo VALENCIA Attending Unavailable Greg Aleman Referring Unavailable Allergies Allergy Classification Reported Allergen(s) Allergy Type Date of Onset Reaction(s) Facility (2 sources) Coconut extract; Translations: [COCONUT] Drug Allergy 4 [facility] Repository (1 source) Misc-Food; Translations: [Misc-Food] Food allergy (disorder) 4 [facility] Repository (1 source) amLODIPine; Translations: [AMLODIPINE] Drug Allergy 4 [facility] Repository (1 source) Onion extract; Translations: [ONION] Drug Allergy 2 [facility] Repository (1 source) No Known Medication Allergies; Translations: [No Known Medication Allergies] Propensity to adverse reactions (disorder) [facility] Repository Medications Current Medications Medication Drug Class(es) Dates Sig (Normalized) Sig (Original) aspirin 81 mg oral tablet (4 sources) Platelet Aggregation Inhibitor, Nonsteroidal Anti-inflammatory Drug Start: 05-28-2019 take 1 tablet by mouth once daily aspirin 81 mg oral tablet 81 mg = 1 tab(s), Oral, Daily Start Date: 05/28/19 Status: Ordered diclofenac sodium 0.01 mg/mg topical gel (3 sources) Nonsteroidal Anti-inflammatory Drug Start: 01-03-2022 Voltaren 1 % as directed Externally every 4 hours for 30 days Dec, Active 1 ml erenumab-aooe 70 mg/ml auto-injector (4 sources) Aimovig 70 MG/ML as directed Subcutaneous Active famotidine 40 mg oral tablet (1 source) Histamine-2 Receptor Antagonist Start: 02-12-2024 take 1 tablet by mouth twice daily famotidine 40 mg Tab 40 mg = 1 tab(s), Oral, BID, Refills(s) 0 Start Date: 02/12/24 Status: Ordered 24 hr isosorbide mononitrate 30 mg extended [...] day Active lisinopril 5 mg oral tablet (4 sources) Angiotensin Converting Enzyme Inhibitor Start: 03-10-2024 take 1 tablet by mouth once daily lisinopril 5 mg Tab 5 mg = 1 tab(s), Oral, Daily, Refills(s) 0 Start Date: 03/10/24 Status: Ordered take 1 tablet by janiya th every twenty-four hours Lisinopril 5 MG 1 tablet Orally Once a day Active meclizine hydrochloride 25 mg oral tablet (4 sources) Antiemetic take 1 tablet by mouth every twenty-four hours Meclizine HCl 25 MG 1 tablet as needed Orally Once a day Active melatonin 5 mg oral tablet (1 source) Start: 03-10-20 take 1 tablet by mouth once daily at bedtime as needed melatonin 5 mg oral tablet 5 mg = 1 tab(s), Oral, Once a day (at bedtime), PRN for insomnia, Refills(s) 0 Start Date: 03/10/24 Status: Ordered meloxicam 7.5 mg oral tablet (1 source) [...] tongue and allow to dissolve Orally Active Ventolin HFA 90 mcg/inh Aerosol (1 source) Start: 05-28-20 take 2 puff(s) by inhalation four times daily Ventolin HFA 90 mcg/inh Aerosol 2 puff(s), Inhalation, QID Start Date: 05/28/19 Status: Ordered Completed/Discontinued Medications Medication Drug Class(es) Dates Sig (Normalized) Sig (Original) celecoxib 100 mg oral capsule (2 sources) Nonsteroidal Anti-inflammatory Drug Start: 01-18-2022 take 1 capsule by mouth twice daily for arthritis Celecoxib 100 MG 1 capsule for arthritis Orally BID for 30 day(s) January, Not-Taking triamcinolone acetonide 40 mg/ml injectable suspension (4 sources) Corticosteroid Start: 04-19-2022 Kenalog-40 04 Apr, 2022 120 mg Start: 09-14-2021 Kenalog -40 mg Aug, 120 mg Problems Active Problems Problem Classification Problem Date Documented Date Episodic/Chronic Anxiety disorders (1 source) Anxiety 02-12-2024 Chronic Chronic obstructive pulmonary disease and bronchiectasis (1 source) Chronic obstructive lung disease 06-15-2019 Chronic Coronary atherosclerosis and other heart disease (2 sources) Angina pectoris with documented spasm; Translations: [Angina pectoris with documented spasm] Onset: 08-27-2022 Chronic Disorders of lipid metabolism (3 sources) Mixed hyperlipidemia; Translations: [Dyslipidemia] Onset: 08-27-2022 Chronic Esophageal disorders (2 sources) Gastroesophageal reflux disease 02-12-2024 Chronic Essential hypertension (3 sources) Essential (primary) hypertension; Translations: [Hypertensive disorder] Onset: 06-02-2018 Chronic Gastritis and duodenitis (1 source) Gastritis 06-28-2019 Episodic Neoplasms of unspecified nature or uncertain behavior (4 sources) 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; Translations: [NEOPLASM UNCERT BHV PITUITARY GLAND] Onset: 10-29-2022 Episodic Noninfectious gastroenteritis (1 source) Colitis 05-28-2019 Episodic Osteoarthritis (20 sources) Osteoarthritis of right hip joint; Translations: [Unilateral primary osteoarthritis, right hip] Onset: 09-14-2021 Resolved: 04-19-2022 Chronic Other and unspecified benign neoplasm (4 sources) Benign neoplasm of cerebral meninges; Translations: [BENIGN NEOPLASM CEREBRAL MENINGES] Onset: 08-15-2022 Chronic Other circulatory disease (1 source) History of transient ischemic attack 06-15-2019 Episodic Other connective tissue disease (1 source) Fibromyalgia 05-28-2019 Episodic Other connective tissue disease (1 source) Primary fibromyalgia syndrome 06-15-2019 Episodic Other nervous system disorders (1 source) Narcolepsy 06-15-2019 Chronic Other nutritional; endocrine; and metabolic disorders (1 source) Overweight 02-12-2024 Episodic Other nutritional; endocrine; and metabolic disorders (1 source) Overweight in adulthood with body mass index of 25 or more but less than 30 03-10-2024 Episodic Other skin disorders (1 source) Mass of posterior lobe of pituitary 05-28-2019 Episodic Regional enteritis and ulcerative colitis (1 source) Ulcerative colitis 02-12-2024 Chronic Spondylosis; intervertebral disc disorders; other back problems (6 sources) Radiculopathy, lumbar region; Translations: [Lumbar radiculopathy] Onset: 04-19-2022 Resolved: 04-19-2022 Episodic Unclassified (3 [...] 06-03-2022 Episodic Other aftercare (1 source) 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; Translations: [OTH CARE HOME CURRENT DRUG THERAPY] Onset: 06-26-2022 Episodic Other [...] Test Name Value Interpretation Reference Range Facility Consent for Procedure/Surger yon 03-11-2024 Consent for Procedure/Surge ry [id number]#[id number] [facility] Facesheeton 03-11-2024 Facesheet [id number]#1.00TIFF [facility] Ambulatory Visit Summaryon 0 03-10-2024 Ambulatory Visit Summary SHERIE CUNNINGHAM :1955 Visit Date:03/10/2024 Ambulatory Visit Instructions Your Care Team Attending Physician - ERIK SMALLWOOD, Pablo Shepherd Primary Care Physician - Greg Aleman MD Referring Physician - Greg Aleman MD This Is Your Medications List Contact prescribing physician if questions or concerns albuterol (Ventolin HFA 90 mcg/inh Aerosol) aspirin (aspirin 81 mg oral tablet) famotidine (famotidine 40 mg Tab) lisinopril (lisinopril 5 mg Tab) melatonin (melatonin 5 mg oral tablet) Procedures Performed Colonoscopy (06/17/2019), Esophagoduodenostomy (06/17/2019), EGD - esophagogastroduodenoscopy (01/22/2006), Colonoscopy (12/06/2005), Abdominal hysterectomy, Bilateral salpingo-oophorectomy, History of partial thyroidectomy. Discharge Vitals Heart Rate (Peripheral) 72 Respiratory Rate 16 Blood Pressure 136/78 Height 160 cm Height 63 in Weight 75 kg Weight 165 lb BMI 29.3 Medications What How Much When Instructions Unchanged albuterol (Ventolin HFA 90 mcg/ inh Aerosol) 2 Puffs Inhalation 4 times a day Contact prescribing physician if questions or concerns Unchanged aspirin (aspirin 81 mg oral tablet) 1 Tablets By Mouth Every day Contact prescribing physician if questions or concerns Unchanged famotidine (famotidine 40 mg Tab) 1 Tablets By Mouth 2 times a day Contact prescribing physician if questions or concerns Unchanged lisinopril (lisinopril 5 mg Tab) 1 Tablets By Mouth Every day Contact prescribing physician if questions or concerns Unchanged melatonin (melatonin 5 mg oral tablet) 1 Tablets By Mouth Once a day (at bedtime) as needed for for insomnia Contact prescribing physician if questions or concerns Allergies No Known Allergies No Known Medication Allergies Problems Ongoing - Any problem that you are currently receiving treatment for. Antral gastritis Anxiety BMI 29.0-29.9,adult COPD - Chronic obstructive pulmonary disease Dyslipidemia GERD (gastroesophageal reflux disease) H/O: TIA Hypertensive disorder Lumbar radiculopathy Narcolepsy Overweight Primary fibromyalgia syndrome Ulcerative colitis Historical - Any problem that you are no longer receiving treatment for. Colitis Fibromyalgia GERD - Gastro-esophageal reflux disease Mass of posterior lobe of pituitary Patient Survey You may receive a survey via text or e-mail asking about your office visit. Please share your experience with us by completing your survey. We appreciate your feedback and thank you for choosing us for your care. Normal [facility] RAD - Ultrasound Reporton RAD - Ultrasound Report [id number] Normal [facility] Physician Referralon 024 Physician Referral [id number] [facility] Office Visiton 10-17-2023 Follow-up visit [id number] Sam Cunningham 1955 F Date Provider Department Center 10/17/2023 [facility] Family History Problem Relation Age of Onset Anemia Mother Breast cancer Mother Diabetes Mother Hypertension Mother Hyperlipidemia Mother Coronary artery disease Father Diabetes Father Hypertension Father Hyperlipidemia Father Stroke Paternal Grandmother Coronary artery disease Paternal Grandmother Family Status - Relation Status Age at Mother Father Paternal Grandmother Level of Service:62043 MA OFFICE/OUTPATIENT ESTABLISHED MOD MDM 30 MIN Normal [facility] Office Visiton 03-25-2023 Follow-up visit [id number] Sam Cunningham 1955 F Date Provider Department Center 03/25/2023 DANIEL YUNG [facility] Family History Problem Relation Age of Onset Anemia Mother Breast cancer Mother Diabetes Mother Hypertension Mother Hyperlipidemia Mother Coronary artery disease Father Diabetes Father Hypertension Father Hyperlipidemia Father Stroke Paternal Grandmother Coronary artery disease Paternal Grandmother Family Status - Relation Status Age at Mother Father Paternal Grandmother Level of Service:83987 MA OFFICE/OUTPATIENT ESTABLISHED MOD MDM 30-39 MIN Reason for Visit and Comments: Follow-up [500151] Normal [facility] ACTH, PLASMAon 10-30-2022 ACTH, Plasma 16.7 pg/mL Normal 7.2-63.3 [facility] Comment on above: Result Comment: ACTH reference interval for samples collected between 7 and 10 AM. Performed By: #### U AMIC #### [facility] [address] [address] [address] Annie Rain CORTISOLon 10-30-2022 Cortisol 4.7 ug/dL Normal [facility] Comment on above: Result Comment: Cortisol AM 6.2 - 19.4 Cortisol PM 2.3 - 11.9 Performed By: #### C ORTISO #### [facility] [address] [address] [address] Annie Rain FSHon 10-30-2022 FSH 57.8 mIU/mL Normal [facility] Comment on above: Result Comment: Adult Female: Follicular phase 3.5 - 12.5 Ovulation phase 4.7 - 21.5 Luteal phase 1.7 - 7.7 Postmenopausal 25.8 - 134.8 Performed By: #### L [facility] #### [facility] [address] [address] [address] Annie Rain GROWTH HORMONEon 10-30-2022 Growth Hormone, Serum 1.5 ng/mL Normal 0.0-10.0 [facility] Comment on above: Performed By: #### UAMIC #### [facility] [address] [place] [address] Dr. Annie Rain [id number]-[id number]-[id number]-FACTOR 1 on 10-30-2022 Insulin-Like Growth Factor I 94 ng/mL Normal 57-202 [facility] Comment on above: Performed By: #### INSGF1 #### [facility] [address] [place] [address] Dr. Annie Rain LUTEINIZING HORMONE (LH)on 0 10-30-2022 LH 22.1 mIU/mL Normal [facility] Comment on above: Result Comment: Adult Female: Follicular phase 2.4 - 12.6 Ovulation phase 14.0 - 95.6 Luteal phase 1.0 - 11.4 Postmenopausal 7.7 - 58.5 Performed By: #### L BCLH #### [facility] [address] [place] [address] Dr. Annie Rain PROLACTINon 10-30-2022 Prolactin 6.4 ng/mL Normal 4.8-23.3 [facility] Comment on above: Performed By: #### PROLAC #### [facility] [address] [place] [address] Dr. Annie Rain FREE T4on 10-29-2022 Free T4 [Mass/Vol] 1.01 ng/dL Normal 0.76-1.46 [facility] Comment on above: Performed By: #### FT4 #### [facility] [address] [place] [address] Dr. Annie Rain PROF CHEM 8 (BAS METB)on Anion gap [Moles/Vol] 11.4 mmol/L Normal [facility] Comment on above: Performed By: #### UAMIC #### [facility] [address] [place] [address] Dr. Annie Rain Calcium [Mass/Vol] 9.4 mg/dL Normal 8.5-10.1 [facility] Comment on above: Performed By: #### UAMIC #### [facility] [address] [address] [address] Annie Rain Chloride [Moles/Vol] 105 mmol/L Normal 98-107 [facility] Comment on above: Performed By: #### UAMIC #### [facility] [address] [address] [address] Annie Rain CO2 [Moles/Vol] 29.6 mmol/L Normal 21.0-32.0 [facility] Comment on above: Performed By: #### UAMIC #### [facility] [address] [address] [address] Annie Rain Creatinine [Mass/Vol] 0.55 mg/dL Normal 0.55-1.02 [facility] Comment on above: Performed By: #### UAMIC #### [facility] [address] [place] [address] Dr. Annie Rain EGFR-AF FRENCH >60 Normal >=60 [facility] Comment on above: Performed By: #### UAMIC #### [facility] [address] [address] [address] Annie Rain EGFR-NON AF FRENCH >60 Normal >=60 [facility] Comment on above: Performed By: #### UAMIC #### [facility] [address] [place] [address] Dr. Annie Rain Glucose [Mass/Vol] 80 mg/dL Normal 74-106 [facility] Comment on above: Performed By: #### UAMIC #### [facility] [address] [address] [address] Annie Rain Potassium [Moles/Vol] 4.0 mmol/L Normal 3.5-5.1 [facility] Comment on above: Performed By: #### UAMIC #### [facility] [address] [address] [address] Annie Rain Sodium [Moles/Vol] 142 mmol/L Normal 136-145 [facility] Comment on above: Performed By: #### UAMIC #### [facility] [address] [address] [address] Annie Rain Urea nitrogen [Mass/Vol] 8.0 mg/dL Normal 7.0-18.0 [facility] Comment on above: Performed By: #### UAMIC #### [facility] [address] [address] [address] Annie Rain Urea nitrogen/Creati nine [Mass ratio] 14.5 mg/mg Normal [facility] Comment on above: Performed By: #### UAMIC #### [facility] [address] [place] [address] Dr. Annie Rain TSHon 10-29-2022 TSH 0.404 uIU/mL Normal 0.358-3.740 [facility] Comment on above: Performed By: #### UAMIC #### [facility] [address] [place] [address] Dr. Annie Rain XR LSPINE MIN 4 [...] by: YENI RUST Date: 2022-08-27 07:31 Normal [facility] MRI BRAIN WO W CONon 022 [...] by: BARRY HO Date: 2022-08-15 22:51 Normal [facility] CREATININEon 08-15-2022 Creatinine [Mass/Vol] 0.62 mg/dL Normal 0.55-1.02 [facility] Comment on above: Performed By: #### CREA #### [facility] [address] [address] [address] Annie Rain EGFR-AF FRENCH >60 Normal >=60 [facility] Comment on above: Performed By: #### CREA #### [facility] [address] [address] [address] Annie Rain EGFR-NON AF FRENCH >60 Normal >=60 [facility] Comment on above: Performed By: #### CREA #### [facility] [address] [address] ABD/PELVIS WO CONon [...] Hospital Comment on above: Performed By: #### INSGF1 #### [facility] [address] [place] [address] Dr. Annie Rain UA RANDOM W/MICROSCOPICon BACTERIA NONE SEEN Normal NONE SEEN [facility] Comment on above: Performed By: #### UAMIC #### [facility] [address] [place] [address] Dr. Annie Rain Bilirubin Ql (U) Negative Normal NEGATIVE [facility] Comment on above: Performed By: #### UAMIC #### [facility] [address] [place] [address] Dr. Annie Rain CAST NONE SEEN Normal NONE SEEN [facility] Comment on above: Performed By: #### UAMIC #### [facility] [address] [place] [address] Dr. Annie Rain Clarity (U) CLEAR Normal CLEAR [facility] Comment on above: Performed By: #### UAMIC #### [facility] [address] [place] [address] Dr. Annie Rain Color (U) YELLOW Normal YELLOW [facility] Comment on above: Performed By: #### UAMIC #### [facility] [address] [place] [address] Dr. Annie Rain Crystals LM Nom (Urine sed) NONE SEEN Normal NONE SEEN [facility] Comment on above: Performed By: #### UAMIC #### [facility] [address] [place] [address] Dr. Annie Rain Epithelial cells LM Ql (Urine sed) RARE Normal NONE SEEN /RARE [facility] Comment on above: Performed By: #### UAMIC #### [facility] [address] [place] [address] Dr. Annie Rain Glucose Ql (U) Negative Normal NEGATIVE [facility] Comment on above: Performed By: #### UAMIC #### [facility] [address] [place] [address] Dr. Annie Rain Hemoglobin Ql (U) SMALL Abnormal NEGATIVE [facility] Comment on above: Performed By: #### UAMIC #### [facility] [address] [place] [address] Dr. Annie Rain Ketones Ql (U) TRACE Abnormal NEGATIVE [facility] Comment on above: Performed By: #### UAMIC #### [facility] [address] [place] [address] Dr. Annie Rain LEUKOCYTES Negative Normal NEGATIVE [facility] Comment on above: Performed By: #### UAMIC #### [facility] [address] [place] [address] Dr. Annie Rain MUCOUS NONE SEEN Normal NONE SEEN [facility] Comment on above: Performed By: #### UAMIC #### [facility] [address] [place] [address] Dr. Annie Rain Nitrite Ql (U) Negative Normal NEGATIVE [facility] Comment on above: Performed By: #### UAMIC #### [facility] [address] [place] [address] Dr. Annie Rain pH (U) 6.5 [pH] Normal 5-9 [facility] Comment on above: Performed By: #### UAMIC #### [facility] [address] [place] [address] Dr. Annie Rain RBC 2-5 Abnormal 0-2 [facility] Comment on above: Performed By: #### UAMIC #### [facility] [address] [place] [address] Dr. Annie Rain SPEC GRAVITY 1.020 Normal 1.005-<=1.02 5 [facility] Comment on above: Performed By: #### UAMIC #### [facility] [address] [place] [address] Dr. Annie Rain UA PROTEIN Negative Normal NEGATIVE/ TRACE [facility] Comment on above: Performed By: #### UAMIC #### [facility] [address] [place] [address] Dr. Annie Rain Urobilinogen Qn (U) 1.0 {Willam'U}/dL Normal 0.2 - 1.0 [facility] Comment on above: Performed By: #### UAMIC #### [facility] [address] [place] [address] Dr. Annie Rain WBC 0-2 Abnormal NONE SEEN [facility] Comment on above: Performed By: #### UAMIC #### [facility] [address] [place] [address] CHEST WO CONon [...] Hospital Comment on above: Performed By: #### INSGF1 #### [facility] [address] [place] [address] Dr. Annie Rain UA RANDOM W/MICROSCOPICon BACTERIA TRACE Abnormal NONE SEEN [facility] Comment on above: Performed By: #### UAMIC #### [facility] [address] [place] [address] Dr. Annie Rain Bilirubin Ql (U) Negative Normal NEGATIVE [facility] Comment on above: Performed By: #### UAMIC #### [facility] [address] [place] [address] Dr. Annie Rain CAST NONE SEEN Normal NONE SEEN [facility] Comment on above: Performed By: #### UAMIC #### [facility] [address] [place] [address] Dr. Annie Rain Clarity (U) CLEAR Normal CLEAR [facility] Comment on above: Performed By: #### UAMIC #### [facility] [address] [place] [address] Dr. Annie Rain Color (U) LT. YELLOW Normal YELLOW [facility] Comment on above: Performed By: #### UAMIC #### [facility] [address] [place] [address] Dr. Annie Rain Crystals LM Nom (Urine sed) NONE SEEN Normal NONE SEEN [facility] Comment on above: Performed By: #### UAMIC #### [facility] [address] [place] [address] Dr. Annie Rain Epithelial cells LM Ql (Urine sed) RARE Normal NONE SEEN /RARE [facility] Comment on above: Performed By: #### UAMIC #### [facility] [address] [place] [address] Dr. Annie Rain Glucose Ql (U) Negative Normal NEGATIVE [facility] Comment on above: Performed By: #### UAMIC #### [facility] [address] [place] [address] Dr. Annie Rain Hemoglobin Ql (U) Negative Normal NEGATIVE [facility] Comment on above: Performed By: #### UAMIC #### [facility] [address] [place] [address] Dr. Annie Rain Ketones Ql (U) Negative Normal NEGATIVE [facility] Comment on above: Performed By: #### UAMIC #### [facility] [address] [place] [address] Dr. Annie Rain LEUKOCYTES Negative Normal NEGATIVE [facility] Comment on above: Performed By: #### UAMIC #### [facility] [address] [place] [address] Dr. Annie Rain MUCOUS NONE SEEN Normal NONE SEEN [facility] Comment on above: Performed By: #### UAMIC #### [facility] [address] [place] [address] Dr. Annie Rain Nitrite Ql (U) Negative Normal NEGATIVE [facility] Comment on above: Performed By: #### UAMIC #### [facility] [address] [place] [address] Dr. Annie Rain pH (U) 6.0 [pH] Normal 5-9 [facility] Comment on above: Performed By: #### UAMIC #### [facility] [address] [place] [address] Dr. Annie Rain RBC 0-2 Normal 0-2 [facility] Comment on above: Performed By: #### UAMIC #### [facility] [address] [place] [address] Dr. Annie Rain SPEC GRAVITY <=1.005 Abnormal 1.005-<=1.02 5 [facility] Comment on above: Performed By: #### UAMIC #### [facility] [address] [place] [address] Dr. Annie Rain UA PROTEIN Negative Normal NEGATIVE/ TRACE [facility] Comment on above: Performed By: #### UAMIC #### [facility] [address] [place] [address] Dr. Annie Rain Urobilinogen Qn (U) 0.2 {Willam'U}/dL Normal 0.2 - 1.0 [facility] Comment on above: Performed By: #### UAMIC #### [facility] [address] [place] [address] Dr. Annie Rain WBC 0-2 Abnormal NONE SEEN [facility] Comment on above: Performed By: #### UAMIC #### [facility] [address] [place] [address] Dr. Annie Rain Covid-19 PCR ([facility])on 03-16 SARS-CoV-2 (COVID-19) RNA GREGOR+probe Ql (Unsp spec) Detected Critically abnormal NOT DETECTED [facility] Comment on above: Result Comment: This test is not yet jose roved or cleared by the [place] FDA. When there are no FDA-approved or cleared tests available, and other criteria are met, FDA can make tests available under an emergency access mechanism called an Emergency Use Authorization (EUA). The EUA for this test is supported by the [place] of Health and Human Service's declaration that [...] NSGF1 #### [facility] [address] [address] [address] Annie Rain MRI BRAIN WO W ALFREDOon 05-24-2 022 MRI BRAIN WO W CON Begin [...] Urea nitrogen [Mass/Vol] 13.0 mg/dL Normal 7.0-18.0 [facility] Comment on above: Performed By: #### CREA, BUN #### [facility] [address] [address] [address] Annie Rain CREATININEon 02-05-2022 Creatinine [Mass/Vol] 0.70 mg/dL Normal 0.55-1.02 [facility] Comment on above: Performed By: #### INSGF1 #### [facility] [address] [address] [address] Annie Rain EGFR-AF FRENCH >60 Normal >=60 [facility] Comment on above: Performed By: #### INSGF1 #### [facility] [address] [address] [address] Annie Rain EGFR-NON AF FRENCH >60 Normal >=60 [facility] Comment on above: Performed By: #### INSGF1 #### [facility] [address] [address] [address] Annie Rain XR pelvis 1-2Von 09-14-2021 XR pelvis 1-2V [facility] [address] XRay Report Signed Patient: Sherie Cunningham MR#: [id number] : 1955 Acct:[id number] Age/Sex: 66 / F ADM Date: 09/14/21 Loc: ICXD Room: Type: [facility] Attending Dr: Nichelle Bailey II, MD Ordering Provider: Nichelle Bailey MD Date of Service: 09/14/21 XR/XR knee RT 4V*: M25.561 ([id number]) XR/XR pelvis 1-2V: M25.561 Copies to: Nichelle [...] Cedric Caal M.D.09/14/2021 11:59 AM Dictation Location: [place] [address] Transcribed By: [facility] 09/14/21 1159 Dictated By: Cedric Caal DO 09/14/21 1118 Signed By: 09/14/21 1159 [facility] MR head/brain wo/w conon MR head/brain wo/w con [facility] [place] [address] MRI Report Signed Patient: Sherie Cunningham MR#: [id number] : 1955 Acct:[id number] Age/Sex: 65 / F ADM Date: 11/07/20 Loc: MR Room: Type: [facility] Attending Dr: Barry Woodson MD Ordering [...] Remberto Coulter M.D.11/08/2020 11:48 AM Dictation Location: [place] [address] Transcribed By: [facility] 11/08/20 1148 Dictated By: Remberto Coulter II, MD 11/08/20 1135 Signed By: 11/08/20 1148 Normal [facility] ISTAT XRay CREon 11-07-2020 Creatinine [Mass/Vol] 0.6 mg/dL Normal 0.6-1.3 [facility] Comment on above: Result Comment: ER/ESD physician is noti fied/shown all ISTAT results. Critical values may be confirmed by laboratory testing if deemed necessary by ER attending doctor. Performed By: #### I SCRE #### [facility] [address] Point of Care testing , ISTAT GFR ( > 60 Normal [facility] Comment on above: Result Comment: GFR estimated reference range: According to KDOQI guidelines, <60 ml/min/1.73m2 is sufficient to diagnose a patient with chronic kidney disease. PERFORMED BY: [place] [address] PATHOLOGIST PEDIATRIC INTENSIVE PHYSICIAN MARK SERRATO M.D. Performed By: #### I SCRE #### [address] Point of Care testing , ISTAT GFR (Non- Am > 60 Normal [facility] Comment on above: Performed By: #### ISCRE #### [address] Point of Care testing , Vital Signs Date Time Vital Sign Value Performing Clinician Facility 03-10-2024 14:14-0400 Blood Pressure Location [facility] 03-10-2024 14:14-0400 Diastolic blood pressure 78 mm[Hg] Pablo BunchL [facility] 03-10-2024 14:14-0400 Heart rate 72 /min Pablo BunchL [facility] 03-10-2024 14:14-0400 Respiratory rate 16 /min [facility] 03-10-2024 14:14-0400 Systolic blood pressure 136 mm[Hg] [facility] 04-19-2022 12:15-0400 Body height 162.56 cm Nichelle Bailey II Other [facility] Other 04-19-2022 12:15-0400 Body mass index (BMI) [Ratio] 27.46 kg/m2 Nichelle Lynn II Other [facility] Other 04-19-2022 12:15-0400 Body weight 72.58 kg Nichelle Fremont II Other [facility] Other 01-18-2022 10:15-0400 Body height 162.56 cm Nichelle Lynn II Other [facility] Other 01-18-2022 10:15-0400 Body mass index (BMI) [Ratio] 27.98 kg/m2 Nichelle Lynn II Other [facility] Other 01-18-2022 10:15-0400 Body weight 73.94 kg Nichelle Fremont II Other [facility] Other 01-03-2022 12:45-0400 Body height 162.56 cm Nichelle Fremont II Other [facility] Other 01-03-2022 12:45-0400 Body mass index (BMI) [Ratio] 27.98 kg/m2 Nichelle Fremont II Other [facility] Other 01-03-2022 12:45-0400 Body weight 73.94 kg Nichelle Fremont II Other [facility] Other 09-14-2021 10:00-0500 Body height 162.56 cm Nichelle Lynn II Other [facility] Other 09-14-2021 10:00-0500 Body mass index (BMI) [Ratio] 27.63 kg/m2 Nichelle Fremont II Other [facility] Other 12-30-2021 10:00-0500 Body weight 73.03 kg Nichelle Bailey II Other [facility] Other Encounters Encounter Date Encounter Type Care Provider Facility Start: 03-10-2024 End: 03-10-2024 ambulatory Pablo VALENCIA Facility: [place] Start: 03-10-2024 End: 03-10-2024 Patient encounter procedure Pablo VALENCIA [facility] [place] Start: 10-17-2023 End: 10-17[facility]: 03-25-2023 End: 03-25-2023 ambulatory DANIEL RENLANIE [facility] Start: 10-29-2022 End: 10-30-2022 ambulatory [...] End: 04-19-2022 ambulatory Nichelle Bailey II Other [facility] Other Start: 04-19-2022 Office outpatient visit 25 minutes Nichelle Bailey II [facility] Start: 04-03-2022 End: 04-03-[address] GREG ALEMAN Facility:[facility] Start: 02-05-2022 End: 02-06-2022 ambulatory AUDELIA UNGER Facility:[facility] Start: 01-29-2022 End: 03-05-2022 ambulatory NICHELLE LYNN Facility:[facility] Start: 01-18-2022 End: 01-18-2022 ambulatory Nichelle Fremont II Other [facility] Other Start: 01-18-2022 Office outpatient visit 25 minutes Nichelle Fremont II [facility] Start: 01-03-2022 End: 01-03-2022 ambulatory Nichelle Fremont II Other [facility] Other Start: 01-03-2022 Office outpatient visit 15 minutes Nichelle Lynn II [facility] Start: 09-14-2021 End: 09-14-2021 ambulatory Nichelle Fremont II Other [facility] Other Start: 09-14-2021 Office outpatient ne w 30 minutes Nichelle Fremont II [facility] Procedures Date Procedure Procedure Detail Performing Clinician Start: 06-17-2019 Colonoscopy [facility] Start: 06-17-2019 Esophagoduodenostomy [facility] Comment on above: with biopsy Start: 01-22-2006 Esophagogastroduodenoscopy Pablo [facility] Start: 12-06-2005 Colonoscopy [facility] Abdominal hysterectomy Gerald lanie BunchL Bilateral salpingect orestes with oophorectomy [facility] History of subtotal thyroidectomy [facility] Immunizations Immunization Date Immunization Notes Care Provider Syed molina NEGATED: Highlighted row has not occurred!06-26-2019 influenza virus vaccine, unspecified formulation Pablo [facility] [place] Comment on above: Result Comment: Will consult with primary care physician Payers Date Payer Category Payer Medicaid [id number] 2. [id number] 1957 Medicare [id number] 2.1 [id number] 1957 Unknown [id number] 2.1 [id number] 1955 Unknown [id number] 2.16.84 [id number] 1955 Unknown [id number] 2.16.84 [id number] 1955 Unknown [id number] 2.16.84 0.1.702716.3.579.2.593 1955 Unknown [id number] 2.16.84 0.1.352012.3.579.2.593 1955 Unknown [id number] 2.16.84 0.1.659428.3.579.2.593 1957 Unknown [id number] 2.16.84 0.1.900377.3.579.2.593 1955 Unknown [id number] 2.16.84 0.1.830626.3.579.2.593 1955 Unknown [id number] 2.16.84 0.1.461026.3.579.2.593 1955 Unknown [id number] 2.16.84 0.1.250008.3.579.2.593 1957 Unknown [id number] 2.16.84 0.1.388725.3.579.2.593 1955 Unknown [id number] 2.16.84 0.1.952294.3.579.2.593 1955 Unknown [id number] 2.16.8 [id number] Social History Date Type Detail Facility Sex Assigned At [facility] Start: 03-10-2024 Tobacco smoking status Ex-smoker (fi nding) [facility] [place] Tobacco smoking status Never [facility] [place] Functional Status Date Assessment Result Facility 03-10-2024 Functional Status N/A [facility] [place] Clinical Notes 09-14-2021 to 03-13-2024 Note Date & Type Note Facility 03-13-2024 Note General Surgery Offi ce/Clinic Note Chief Complaint consultation for abdominal pain HPI Staff 68 year old female presents on consultation from Dr. Aleman for abdominal pain. Reports central abdominal pain from epigastric area to sternum that is burning in nature. Reports crampy lower abdominal pain as well. Pain is worse with food, especially greasy and spicy things. Verbalized she is experiencing frequent loose stools. Reports significant daily nausea with rare vomiting. Reports daily intermittent bloating. Denies rectal pain or bleeding. No weight loss. Reports Protonix made symptoms worse so this was switched to Pepcid. She reports Pepcid has not been effective. RUQ US completed 01/12- normal. EGD and colonoscopy completed 06/2019 with antral gastritis, small antral ulcers and bile reflux; colonoscopy was normal. Patient with history of ulcerative colitis. States this was diagnosed many years ago and is not being treated as symptoms have been well controlled. History of Present Illness 68 yo female with h/o COPD, htn, hyperlipidemia, fibromyalgia, TIA, lumbar radiculopathy, anxiety, ulcerative colitis, referred for abdominal pain; patient reports several month h/o epigastric burning pain, radiating to chest; also crampy bilateral lower abd pain, worse after eating, spicy or fatty foods seem to trigger, occasional nausea, no emesis; frequent bloating; frequent loose stools, no melena or blood in stools; no wt loss; no improvement with Protonix or Pepcid; normal RUQ US; EGD in 2019 with antral gastritis and small ulcers, bile reflux; normal colonoscopy in 2019; remote h/o Ulcerative colitis, has not been on medication for over 25 years; on baby asa daily, no NSAID use; abdominal operations significant for JENNIFER with bso; no fmhx of GI malignancy or IBD. no tobacco use. Review of Systems PHQ Score Initial Depression Screen Score: 0 SCORE ROS - Provider Constitutional: no fever, no sweats, no weight loss. Eyes: no glasses, no blurred vision, no visual loss. ENMT: no dentures, no hoarseness, no swallowing difficulties, no hearing loss, no ear infection(s), no nose bleeds. Cardiovascular: normal blood pressure, no chest pain, regular heartbeat, no heart murmur. Respiratory: no shortness of breath, no cough, no asthma, no wheezing. Gastrointestinal: no nausea, no vomiting, no diarrhea, no constipation, no blood in stool, no change in bowel habits, no abdominal pain, no hepatitis. Genitourinary: no kidney stones, no urine infection, no dysuria. Musculoskeletal: no pain, no weakness. Skin: no changing moles, no rash, no skin lumps. Neurologic: no seizures, no epilepsy, no headache. Psychiatric: no emotional or psychiatric problem. Heme/Lymph: no bleeding problems, no anemia, no blood clots, no transfusions. Allergy/Immunologic: no swollen lymph nodes/glands, no IV drug abuse. Other: Additional ROS info: Except as noted in the above Review of Systems and in the History of Present Illness, all other systems have been reviewed and are negative or noncontributory. Physical Exam Vitals & Measurements HR: 72(Peripheral) RR: 16 BP: 136/78 HT: 63 in HT: 160 cm WT: 75 kg WT: 165 lb BMI: 29.3 HEENT: normal conjunctiva, sclera clear, no scleral icterus, EOM intact, PERRLA, oral mucosa moist without lesions. Neck: trachea midline, no mass, symmetric, no thyromegaly or nodules, no adenopathy Respiratory: lungs CTA, respirations non labored. Cardiovascular: regular rate and rhythm, no murmur, no pedal edema or varicosities. Gastrointestinal: soft, non distended, mild tenderness, epigastrium no masses, no palpable hernias, diastasis recti no, no hepatosplenomegaly; normal bs Lymphatic: no cervical adenopathy, no supraclavicular adenopathy. Musculoskeletal: normal gait, digits and nails without infection, nodes, cyanosis, clubbing. Skin: no rashes, no lesions, no ulcers, no subcutaneous nodules, induration. Psychiatric/Neuro: oriented to time, place, person, judgement normal, affect appropriate for age, insight intact, no focal deficits. Tests: , x-rays reviewed, review of old records completed , Discussed surgical options, risks, and possible complications with patient. Assessment/Plan 1. Frequent loose stools (R19.7: Diarrhea, unspecified) plan EGD and colonoscopy under anesthesia, informed consent obtained. 2. Change in bowel habits (R19.4: Change in bowel habit) see # 1 3. Bilateral lower abdominal pain (R10.31: Right lower quadrant pain) see # 1 4. Postprandial abdominal bloating (R14.0: Abdominal distension (gaseous)) see # 1 5. Nausea (R11.0: Nausea) see # 1 6. History of ulcerative colitis (Z87.19: Personal history of other diseases of the digestive system) see # 1 7. Epigastric pain (R10.13: Epigastric pain) see # 1 Left lower quadrant pain (R10.32: Left lower quadrant pain) see # 1 Follow-up No qualifying data available Problem List/Past Medical History Ongoing Antral gastritis Anxiety Bilateral lo (more content not included)... [facility] Comment on above: Result Comment: Elec tronically Signed By: ERIK SMALLWOOD, Pablo Peterson.shay\Date and Time Signed: 03/13/24 10:51 EDT 10-17-2023 Note Lipids elevated and pt prefers to start with diet and lifestyle modifications Will repeat lipid level in 3 months to re-evaluate [facility] 10-17-2023 Note Hypertension is elev ated in office, she is adamant that b/p is well controlled at home. Staff to call pt in 1-2 weeks to review b/p log. Continue lisinopril 5 mg daily- she reports a dry cough but states this is r/t her lung disease- we discussed side effect of lisinopril can be cough and she voiced understanding. [facility] 10-17-2023 Note Stable continue all medications [facility] 10-17-2023 Note [facility] [...] motion abnor (more content not included)... [facility] 10-17-2023 Note Patient here for [...] other systems reviewed and are negative. [facility] 03-25-2023 Note [place] [facility] Subjective Sherie Cunningham is a 67 [...] sided pressu (more content not included)... [facility] 06-25-2022 Note PROCEDURE: CT CSPINE [...] authenticated by: YENI RUST Date: 2022-06-25 13:55 [facility] 06-25-2022 Note PROCEDURE: XR HAND L [...] authenticated by: BARRY HO Date: 2022-06-25 13:49 [facility] 04-19-2022 Evaluation note Encounter Date Diagnosis [...] we will get a lumbar spine x-ray. [facility] Other 05-05-2022 Evaluation note* Encounter Date Diagnosis Assessment Notes Treatment Notes Treatment Clinical Notes January, Primary osteoarthritis of right knee (ICD-10 - M17.11) January, Primary osteoarthritis of right hip (ICD-10 - M16.11) 05 May, 2022 Other 1. We again dis cussed her [...] a viscosupplementation. 6. Follow up 3 months [facility] Other 04-20-2022 Evaluation note* Encounter Date Diagnosis [...] knee compared to a partial knee replacement. [facility] Other 12-30-2021 Evaluation note* Encounter Date Diagnosis [...] this well. 5. Follow up 3 months [facility] Other Evaluation + Plan note No data available for this section BRAIN History general Narrative - Reported* Type Description Date Medical History COPD Medical History emphysema Medical History migraine headache Medical History Panic attacks Surgical History thyroidectomy-partial Surgical History hysterectomy Surgical History oophorectomy Surgical History eye surgery Hospitalization History pneumonia Hospitalization History chest pain 04/2021 [facility] Other Hospital Discharge instructions No data available for this section BRAIN Progress note No data available for this section BRAIN Summary Purpose Family History No Family History Records FoundNo Family History Records FoundNo Family History Records FoundNo Family History Records Found No data available for this section No Family History Records Found Advance Directives No Advanced Directives Records FoundNo Advanced Directives Records FoundNo Advanced Directives Records FoundNo Advanced Directives Records FoundNo Advanced Directives Records Found Additional Source Comments INFORMATION SOURCE (unrecogn ized section and content) DATE CREATED AUTHOR 11/12/2020 [facility] DATE CREATED AUTHOR AUTHOR'S ORGANIZ ATION 12/04/2021 [facility] DATE CREATED AUTHOR AUTHOR'S ORGANIZ ATION 11/03/2022 [facility] DATE CREATED AUTHOR AUTHOR'S ORGANIZ ATION 10/18/2023 [facility] DATE CREATED AUTHOR AUTHOR'S ORGANIZ ATION 03/15/2024 [facility] REASON FOR VISIT (unrecogniz ed section and content) Right Knee PainRECHECK RT KN EERecheck Right KneeRecheck Right knee Patient Care team informatio n (unrecognized section and content) Personnel Name: Greg Aleman MD Address: Address: [address] [place] [address] FOR RECORDS PERTAINING TO PATIENTS WHO ARE [...] BE BASED ON THE PRIMARY CLINICAL RECORDS. [facility]. provides no warranty or guarantee of the accuracy or completeness of information in this document.
== END 2024-04-14 07:06 | disposition home or self-care (01) ==
LOC: PST 07:05
PROVIDERS: PCP Family Medicine; Visit Provider Surgery
DX: Z01.818 Encounter for other preprocedural examination (principal); R10.9 Unspecified abdominal pain; R10.13 Epigastric pain; R11.0 Nausea

== ENCOUNTER 2024-04-22 07:28 | Day surgery (SDC) | payer MEDICARE, MEDICAID, SELFPAY ==
--- NOTE | 2024-04-22 | OP_ITS ---
OPERATION DATE: 04/22/2024 PREOPERATIVE DIAGNOSIS: Epigastric pain and lower abdominal pain, bowel changes, loose stools, nausea and history of ulcerative colitis. POSTOPERATIVE DIAGNOSIS: Normal EGD as well as normal colonoscopy to terminal ileum. PROCEDURE: EGD and colonoscopy. SURGEON: Griffin Zelaya M.D. ANESTHESIA: Monitored anesthesia care. ESTIMATED BLOOD LOSS: Zero. INDICATIONS AND CONSENT: Patient is a 69-year-old female, history of worsening epigastric and lower abdominal pain, as well as bowel changes with frequent loose stools and nausea. She does have a history of ulcerative colitis remotely, is on no medication. Indications, risks, benefits, alternatives of proceeding with EGD and colonoscopy were explained extensively to the patient, including the risks of bleeding, aspiration, esophageal/gastric/duodenal or colonic perforation or anesthetic complications. All of her questions were answered. Informed consent was obtained. PROCEDURE: Patient brought to the operating room, placed in the left lateral decubitus position. Monitored anesthesia care was provided. Bite block was placed in the patient?s mouth. Scope was inserted into the oropharynx. Under direct visualization, it was advanced into the esophagus, past the cricopharyngeus, down to the stomach. The stomach was insufflated with air. The pylorus was traversed down to the descending portion of the duodenum. There was no evidence of duodenitis or ulceration. There was no scarring within the pyloric channel. Scope was pulled back into the stomach and retroflexed. There was no significant hiatal hernia. There were no gastric mucosal abnormalities or gastritis. The GE junction was noted at approximately 39 cm. The Z-line was normal with no inflammatory or esophagitis or Flores?s changes. Remainder of the esophagus was unremarkable, except for a small inlet patch. The scope was then withdrawn. Patient tolerated procedure well, was positioned for colonoscopy. Rectal exam was performed, which showed no masses or blood. The scope was then inserted into the anal canal. Under direct visualization, it was advanced to the cecum where cecal markings were clearly identified. There was noted to be a good prep. Terminal ileum was intubated. The ileum was normal without inflammatory changes, ulcerations. There were normal villi. No old or new blood. Upon withdrawal of the scope, mucosal surfaces were carefully examined. There were no mass lesions or polyps. No inflammatory changes or ulcerations. No significant diverticulosis. There was some redundancy of the colon. The scope was retroflexed in the anal canal. There was no significant hemorrhoidal disease. The scope was then withdrawn. The patient tolerated procedure well, was sent to recovery room in good condition. f/u screening colonoscopy in 10 years. CC: Terrance White
[2024-04-22 07:30] VITALS: BP 141/80; PULSE 73; TEMP 35.5; O2SAT 97; BMI 25.5; BMI 25.7
--- OUTSIDE RECORDS SUMMARY | 2024-04-22 07:32 | XMS_ITS | CCD ---
Author Organization [facility] Inform ion [facility] Care Team Providers Care Clinical Resource Director Name Role Phone Nichelle Bailey II Unavailable [...] Attending Unavailable Greg Aleman Primary Care Physician Pablo VALENCIA Attending Unavailable Greg Aleman Referring Unavailable Allergies Allergy Classification Reported Allergen(s) Allergy Type Date of Onset Reaction(s) Facility (2 sources) Coconut extract; Translations: [COCONUT] Drug Allergy 4 [facility] Repository (1 source) Misc-Food; Translations: [Misc-Food] Food allergy (disorder) 4 [facility] Repository (1 source) amLODIPine; Translations: [AMLODIPINE] Drug Allergy 4 [facility] Repository (1 source) Onion extract; Translations: [ONION] Drug Allergy 2 [facility] Repository (1 source) No Known Medication Allergies; Translations: [No Known Medication Allergies] Propensity to adverse reactions (disorder) [facility] Repository Medications Current Medications Medication Drug [...] 06-03-2022 Episodic Other aftercare (1 source) 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 Normal [facility] RAD - Ultrasound Reporton RAD - Ultrasound Report [id number] Normal [facility] Physician Referralon 024 Physician Referral [id number]#[id number] [facility] Office Visiton 10-17-2023 Follow-up visit [id number] Sam Cunningham 1955 F Date Provider Department Center 10/17/2023 [facility] Family History Problem Relation Age of Onset Anemia Mother Breast cancer Mother Diabetes Mother Hypertension Mother Hyperlipidemia Mother Coronary artery disease Father Diabetes Father Hypertension Father Hyperlipidemia Father Stroke Paternal Grandmother Coronary artery disease Paternal Grandmother Family Status - Relation Status Age at Mother Father Paternal Grandmother Level of Service:29062 CO OFFICE/OUTPATIENT ESTABLISHED MOD MDM 30 MIN Normal [facility] Office Visiton 03-25-2023 Follow-up visit [id number] Sam Cunningham 1955 F Date Provider Department Center 03/25/2023 [facility] Family History Problem Relation Age of Onset Anemia Mother Breast cancer Mother Diabetes Mother Hypertension Mother Hyperlipidemia Mother Coronary artery disease Father Diabetes Father Hypertension Father Hyperlipidemia Father Stroke Paternal Grandmother Coronary artery disease Paternal Grandmother Family Status - Relation Status Age at Mother Father Paternal Grandmother Level of Service:29825 CO OFFICE/OUTPATIENT ESTABLISHED MOD MDM 30-39 MIN Reason for Visit and Comments: Follow-up [333609] Normal [facility] ACTH, PLASMAon 10-30-2022 ACTH, Plasma 16.7 pg/mL Normal 7.2-63.3 [facility] Comment on above: Result Comment: ACTH reference interval for samples collected between 7 and 10 AM. Performed By: #### U AMIC #### [facility] [address] [address] [address] Annie Rain CORTISOLon 10-30-2022 Cortisol 4.7 ug/dL Normal [facility] Comment on above: Result Comment: Cortisol AM 6.2 - 19.4 Cortisol PM 2.3 - 11.9 Performed By: #### C ORTISO #### [facility] [address] [address] [address] Annie Rain FSHon 10-30-2022 FSH 57.8 mIU/mL Normal [facility] Comment on above: Result Comment: Adult Female: Follicular phase 3.5 - 12.5 Ovulation phase 4.7 - 21.5 Luteal phase 1.7 - 7.7 Postmenopausal 25.8 - 134.8 Performed By: #### [facility] #### [facility] [address] [address] [address] Annie Rain GROWTH HORMONEon 10-30-2022 Growth Hormone, Serum 1.5 ng/mL Normal 0.0-10.0 [facility] Comment on above: Performed By: #### UAMIC #### [facility] [address] [place] [address] Dr. Annie Rain CVDWHXD-SYEL-SUYEIV-FACTOR 1 on 10-30-2022 Insulin-Like Growth Factor I 94 ng/mL Normal 57-202 [facility] Comment on above: Performed By: #### INSGF1 #### [facility] [address] [place] [address] Dr. Annie Rain LUTEINIZING HORMONE (LH)on 0 10-30-2022 LH 22.1 mIU/mL Normal [facility] Comment on above: Result Comment: Adult Female: Follicular phase 2.4 - 12.6 Ovulation phase 14.0 - 95.6 Luteal phase 1.0 - 11.4 Postmenopausal 7.7 - 58.5 Performed By: #### L BCLH #### [facility] [address] [place] [address] Dr. Annie Rain PROLACTINon 10-30-2022 Prolactin 6.4 ng/mL Normal 4.8-23.3 [facility] Comment on above: Performed By: #### PROLAC #### [facility] [address] [place] [address] Dr. Annie Rain FREE T4on 10-29-2022 Free T4 [Mass/Vol] 1.01 ng/dL Normal 0.76-1.46 [facility] Comment on above: Performed By: #### FT4 #### [facility] [address] [place] [address] Dr. Annie Rain PROF CHEM 8 (BAS METB)on Anion gap [Moles/Vol] 11.4 mmol/L Normal [facility] Comment on above: Performed By: #### UAMIC #### [facility] [address] [place] [address] Dr. Annie Rain Calcium [Mass/Vol] 9.4 mg/dL Normal 8.5-10.1 [facility] Comment on above: Performed By: #### UAMIC #### [facility] [address] [address] [address] Annie Rain Chloride [Moles/Vol] 105 mmol/L Normal 98-107 [facility] Comment on above: Performed By: #### UAMIC #### [facility] [address] [address] [address] Annie Rain CO2 [Moles/Vol] 29.6 mmol/L Normal 21.0-32.0 [facility] Comment on above: Performed By: #### UAMIC #### [facility] [address] [address] [address] Annie Rain Creatinine [Mass/Vol] 0.55 mg/dL Normal 0.55-1.02 [facility] Comment on above: Performed By: #### UAMIC #### [facility] [address] [place] [address] Dr. Annie Rain EGFR-AF AUSTRALIAN >60 Normal >=60 [facility] Comment on above: Performed By: #### UAMIC #### [facility] [address] [address] [address] Annie Rain EGFR-NON AF AUSTRALIAN >60 Normal >=60 [facility] Comment on above: Performed By: #### UAMIC #### [facility] [address] [place] [address] Dr. Annie Rain Glucose [Mass/Vol] 80 mg/dL Normal 74-106 [facility] Comment on above: Performed By: #### UAMIC #### [facility] [address] [address] [address] Annie Rain Potassium [Moles/Vol] 4.0 mmol/L Normal 3.5-5.1 [facility] Comment on above: Performed By: #### UAMIC #### [facility] [address] [address] [address] Annie Rain Sodium [Moles/Vol] 142 mmol/L Normal 136-145 [facility] Comment on above: Performed By: #### UAMIC #### [facility] [address] [address] [address] Annie Rain Urea nitrogen [Mass/Vol] 8.0 mg/dL Normal 7.0-18.0 [facility] Comment on above: Performed By: #### UAMIC #### [facility] [address] [address] [address] Annie Rain Urea nitrogen/Creati nine [Mass ratio] 14.5 mg/mg Normal [facility] Comment on above: Performed By: #### UAMIC #### [facility] [address] [place] [address] Dr. Annie Rain TSHon 10-29-2022 TSH 0.404 uIU/mL Normal 0.358-3.740 [facility] Comment on above: Performed By: #### UAMIC #### [facility] [address] [place] [address] Dr. Annie Rain XR LSPINE MIN 4 [...] by: YENI RUST Date: 2022-08-27 07:31 Normal [facility] MRI BRAIN WO W CONon 022 [...] by: BARRY HO Date: 2022-08-15 22:51 Normal [facility] CREATININEon 08-15-2022 Creatinine [Mass/Vol] 0.62 mg/dL Normal 0.55-1.02 [facility] Comment on above: Performed By: #### CREA #### [facility] [address] [address] [address] Annie Rain EGFR-AF AUSTRALIAN >60 Normal >=60 [facility] Comment on above: Performed By: #### CREA #### [facility] [address] [address] [address] Annie Rain EGFR-NON AF AUSTRALIAN >60 Normal >=60 [facility] Comment on above: Performed By: #### CREA #### [facility] [address] [address] [address] ABD/PELVIS WO CONon [...] YENI RUST Date: 2022-06-25 13:49 Normal [facility] CT HEAD WO CONon 06-25-2022 CT [...] PABLO MILLER Date: 2022-06-25 13:56 Normal [facility] CULTURE URINEon 06-20-2022 CULTURE URINE Culture Observations : LIGHT GROWTH OF MIXED GENITAL SILAS. NO POTENTIAL PATHOGENS SEEN. Normal [facility] Comment on above: Performed By: #### INSGF1 #### [facility] [address] [place] [address] Dr. Annie Rain UA RANDOM W/MICROSCOPICon BACTERIA NONE SEEN Normal NONE SEEN [facility] Comment on above: Performed By: #### UAMIC #### [facility] [address] [place] [address] Dr. Annie Rain Bilirubin Ql (U) Negative Normal NEGATIVE [facility] Comment on above: Performed By: #### UAMIC #### [facility] [address] [place] [address] Dr. Annie Rain CAST NONE SEEN Normal NONE SEEN [facility] Comment on above: Performed By: #### UAMIC #### [facility] [address] [place] [address] Dr. Annie Rain Clarity (U) CLEAR Normal CLEAR [facility] Comment on above: Performed By: #### UAMIC #### [facility] [address] [place] [address] Dr. Annie Rain Color (U) YELLOW Normal YELLOW [facility] Comment on above: Performed By: #### UAMIC #### [facility] [address] [place] [address] Dr. Annie Rain Crystals LM Nom (Urine sed) NONE SEEN Normal NONE SEEN [facility] Comment on above: Performed By: #### UAMIC #### [facility] [address] [place] [address] Dr. Annie Rain Epithelial cells LM Ql (Urine sed) RARE Normal NONE SEEN /RARE [facility] Comment on above: Performed By: #### UAMIC #### [facility] [address] [place] [address] Dr. Annie Rain Glucose Ql (U) Negative Normal NEGATIVE [facility] Comment on above: Performed By: #### UAMIC #### [facility] [address] [place] [address] Dr. Annie Rain Hemoglobin Ql (U) SMALL Abnormal NEGATIVE [facility] Comment on above: Performed By: #### UAMIC #### [facility] [address] [place] [address] Dr. Annie Rain Ketones Ql (U) TRACE Abnormal NEGATIVE [facility] Comment on above: Performed By: #### UAMIC #### [facility] [address] [place] [address] Dr. Annie Rain LEUKOCYTES Negative Normal NEGATIVE [facility] Comment on above: Performed By: #### UAMIC #### [facility] [address] [place] [address] Dr. Annie Rain MUCOUS NONE SEEN Normal NONE SEEN [facility] Comment on above: Performed By: #### UAMIC #### [facility] [address] [place] [address] Dr. Annie Rain Nitrite Ql (U) Negative Normal NEGATIVE [facility] Comment on above: Performed By: #### UAMIC #### [facility] [address] [place] [address] Dr. Annie Rain pH (U) 6.5 [pH] Normal 5-9 [facility] Comment on above: Performed By: #### UAMIC #### [facility] [address] [place] [address] Dr. Annie Rain RBC 2-5 Abnormal 0-2 [facility] Comment on above: Performed By: #### UAMIC #### [facility] [address] [place] [address] Dr. Annie Rain SPEC GRAVITY 1.020 Normal 1.005-<=1.02 5 [facility] Comment on above: Performed By: #### UAMIC #### [facility] [address] [place] [address] Dr. Annie Rain UA PROTEIN Negative Normal NEGATIVE/ TRACE [facility] Comment on above: Performed By: #### UAMIC #### [facility] [address] [place] [address] Dr. Annie Rain Urobilinogen Qn (U) 1.0 {Willam'U}/dL Normal 0.2 - 1.0 [facility] Comment on above: Performed By: #### UAMIC #### [facility] [address] [place] [address] Dr. Annie Rain WBC 0-2 Abnormal NONE SEEN [facility] Comment on above: Performed By: #### UAMIC #### [facility] [address] [place] [address] CHEST WO CONon [...] YENI RUST Date: 2022-06-08 13:10 Normal [facility] CULTURE URINEon 05-30-2022 CULTURE URINE Culture Observations : NO GROWTH. Normal [facility] Comment on above: Performed By: #### INSGF1 #### [facility] [address] [place] [address] Dr. Annie Rain UA RANDOM W/MICROSCOPICon BACTERIA TRACE Abnormal NONE SEEN [facility] Comment on above: Performed By: #### UAMIC #### [facility] [address] [place] [address] Dr. Annie Rain Bilirubin Ql (U) Negative Normal NEGATIVE [facility] Comment on above: Performed By: #### UAMIC #### [facility] [address] [place] [address] Dr. Annie Rain CAST NONE SEEN Normal NONE SEEN [facility] Comment on above: Performed By: #### UAMIC #### [facility] [address] [place] [address] Dr. Annie Rain Clarity (U) CLEAR Normal CLEAR [facility] Comment on above: Performed By: #### UAMIC #### [facility] [address] [place] [address] Dr. Annie Rain Color (U) LT. YELLOW Normal YELLOW [facility] Comment on above: Performed By: #### UAMIC #### [facility] [address] [place] [address] Dr. Annie Rain Crystals LM Nom (Urine sed) NONE SEEN Normal NONE SEEN [facility] Comment on above: Performed By: #### UAMIC #### [facility] [address] [place] [address] Dr. Annie Rain Epithelial cells LM Ql (Urine sed) RARE Normal NONE SEEN /RARE [facility] Comment on above: Performed By: #### UAMIC #### [facility] [address] [place] [address] Dr. Annie Rain Glucose Ql (U) Negative Normal NEGATIVE [facility] Comment on above: Performed By: #### UAMIC #### [facility] [address] [place] [address] Dr. Annie Rain Hemoglobin Ql (U) Negative Normal NEGATIVE [facility] Comment on above: Performed By: #### UAMIC #### [facility] [address] [place] [address] Dr. Annie Rain Ketones Ql (U) Negative Normal NEGATIVE [facility] Comment on above: Performed By: #### UAMIC #### [facility] [address] [place] [address] Dr. Annie Rain LEUKOCYTES Negative Normal NEGATIVE [facility] Comment on above: Performed By: #### UAMIC #### [facility] [address] [place] [address] Dr. Annie Rain MUCOUS NONE SEEN Normal NONE SEEN [facility] Comment on above: Performed By: #### UAMIC #### [facility] [address] [place] [address] Dr. Annie Rain Nitrite Ql (U) Negative Normal NEGATIVE [facility] Comment on above: Performed By: #### UAMIC #### [facility] [address] [place] [address] Dr. Annie Rain pH (U) 6.0 [pH] Normal 5-9 [facility] Comment on above: Performed By: #### UAMIC #### [facility] [address] [place] [address] Dr. Annie Rain RBC 0-2 Normal 0-2 [facility] Comment on above: Performed By: #### UAMIC #### [facility] [address] [place] [address] Dr. Annie Rain SPEC GRAVITY <=1.005 Abnormal 1.005-<=1.02 5 [facility] Comment on above: Performed By: #### UAMIC #### [facility] [address] [place] [address] Dr. Annie Rain UA PROTEIN Negative Normal NEGATIVE/ TRACE [facility] Comment on above: Performed By: #### UAMIC #### [facility] [address] [place] [address] Dr. Annie Rain Urobilinogen Qn (U) 0.2 {Willam'U}/dL Normal 0.2 - 1.0 [facility] Comment on above: Performed By: #### UAMIC #### [facility] [address] [place] [address] Dr. Annie Rain WBC 0-2 Abnormal NONE SEEN [facility] Comment on above: Performed By: #### UAMIC #### [facility] [address] [place] [address] Dr. Annie Rain Covid-19 PCR ([facility])on 03-16 SARS-CoV-2 (COVID-19) RNA GREGOR+probe Ql (Unsp spec) Detected Critically abnormal NOT DETECTED [facility] Comment on above: Result Comment: This test is not yet jose roved or cleared by the [place] FDA. When there are no FDA-approved or cleared tests available, and other criteria are met, FDA can make tests available under an emergency access mechanism called an Emergency Use Authorization (EUA). The EUA for this test is supported by the [place] of Health and Human Service's declaration that [...] used). Performed By: #### I NSGF1 #### [facility] [address] [address] [address] Annie Rain MRI BRAIN WO W [...] prior studies available for comparison. Normal [facility] BUNon 02-05-2022 Urea nitrogen [Mass/Vol] 13.0 mg/dL Normal 7.0-18.0 [facility] Comment on above: Performed By: #### CREA, BUN #### [facility] [address] [address] [address] Annie Rain CREATININEon 02-05-2022 Creatinine [Mass/Vol] 0.70 mg/dL Normal 0.55-1.02 [facility] Comment on above: Performed By: #### INSGF1 #### [facility] [address] [address] [address] Annie Rain EGFR-AF AUSTRALIAN >60 Normal >=60 [facility] Comment on above: Performed By: #### INSGF1 #### [facility] [address] [address] [address] Annie Rain EGFR-NON AF AUSTRALIAN >60 Normal >=60 [facility] Comment on above: Performed By: #### INSGF1 #### [facility] [address] [address] [address] Annie Rain XR pelvis 1-2Von 09-14-2021 XR pelvis 1-2V [facility] [address] XRay Report Signed Patient: Sherie Cunningham MR#: [id number] : 1955 Acct:[id number] Age/Sex: 66 / F ADM Date: 09/14/21 Loc: ICXD Room: Type: [facility] Attending Dr: Nichelle Bailey II, MD Ordering Provider: Nichelle Bailey MD Date of Service: 09/14/21 XR/XR knee RT 4V*: M25.561 ([id number]) XR/XR pelvis 1-2V: M25.561 Copies to: Nichelle [...] Cedric Caal M.D.09/14/2021 11:59 AM Dictation Location: [address] [place] [address] Transcribed By: [facility] 09/14/21 1159 Dictated By: Cedric Caal DO 09/14/21 1118 Signed By: 09/14/21 1159 [facility] MR head/brain wo/w conon MR head/brain wo/w con [facility] [place] [address] MRI Report Signed Patient: Sherie Cunningham MR#: [id number] : 1955 Acct:[id number] Age/Sex: 65 / F ADM Date: 11/07/20 Loc: MR Room: Type: [facility] Attending Dr: Barry Woodson MD Ordering Provider: [...] Remberto Coulter M.D.11/08/2020 11:48 AM Dictation Location: [place] [address] Transcribed By: [facility] 11/08/20 1148 Dictated By: Remberto Coulter II, MD 11/08/20 1135 Signed By: 11/08/20 1148 Normal [facility] ISTAT XRay CREon 11-07-2020 Creatinine [Mass/Vol] 0.6 mg/dL Normal 0.6-1.3 [facility] Comment on above: Result Comment: ER/ESD physician is noti fied/shown all ISTAT results. Critical values may be confirmed by laboratory testing if deemed necessary by ER attending doctor. Performed By: #### I SCRE #### [facility] [address] Point of Care testing , ISTAT GFR ( > 60 Normal [facility] Comment on above: Result Comment: GFR estimated reference range: According to KDOQI guidelines, <60 ml/min/1.73m2 is sufficient to diagnose a patient with chronic kidney disease. PERFORMED BY: [place] [address] PATHOLOGIST STEAM TABLE WORKER MARK SERRATO M.D. Performed By: #### I SCRE #### [address] Point of Care testing , ISTAT GFR (Non- Am > 60 Normal [facility] Comment on above: Performed By: #### ISCRE #### [address] Point of Care testing , Vital Signs Date Time Vital Sign Value Performing Clinician Facility 03-10-2024 14:14-0400 Blood Pressure Location [employer] [facility] 03-10-2024 14:14-0400 Diastolic blood pressure 78 mm[Hg] Pablo [email or web address] [facility] 03-10-2024 14:14-0400 Heart rate 72 /min Pablo [employer] [facility] 03-10-2024 14:14-0400 Respiratory rate 16 /min [employer] [facility] 03-10-2024 14:14-0400 Systolic blood pressure 136 mm[Hg] [employer] [facility] 04-19-2022 12:15-0400 Body height 162.56 cm Nichelle Bailey II Other [employer] Other 04-19-2022 12:15-0400 Body mass index (BMI) [Ratio] 27.46 kg/m2 Nichelle Canóvanas II Other [facility] Other 04-19-2022 12:15-0400 Body weight 72.58 kg Nichelle Lynn II Other [employer] [facility] Other 01-18-2022 10:15-0400 Body height 162.56 cm Nichelle Lynn II Other [employer] Other 01-18-2022 10:15-0400 Body mass index (BMI) [Ratio] 27.98 kg/m2 Nichelle Lynn II Other [employer] [facility] Other 01-18-2022 10:15-0400 Body weight 73.94 kg Nichelle Canóvanas II Other [employer] Other 01-03-2022 12:45-0400 Body height 162.56 cm Nichelle Canóvanas II Other [employer] [facility] Other 01-03-2022 12:45-0400 Body mass index (BMI) [Ratio] 27.98 kg/m2 Nichelle Canóvanas II Other [employer] [facility] Other 01-03-2022 12:45-0400 Body weight 73.94 kg Nichelle Lynn II Other [employer] [facility] Other 09-14-2021 10:00-0500 Body height 162.56 cm Nichelle [place] II Other [facility] Other 09-14-2021 10:00-0500 Body mass index (BMI) [Ratio] 27.63 kg/m2 Nichelle Lynn II Other [facility] Other 12-30-2021 10:00-0500 Body weight 73.03 kg Nichelle Bailey II Other [facility] Other Encounters Encounter Date Encounter Type Care Provider Facility Start: 03-10-2024 End: 03-10-2024 ambulatory Pablo VALENCIA Facility: [facility] Start: 03-10-2024 End: 03-10-2024 Patient encounter procedure Pablo VALENCIA [facility] [place] Start: 10-17-2023 End: 10[facility]17[facility]: 03-25-2023 End: 03-25-2023 ambulatory DANIEL RENLANIE [facility] Start: 10-29-2022 End: 10-30-2022 ambulatory JOSSIE [...] End: 04-19-2022 ambulatory Nichelle Bailey II Other [facility] Start: 04-19-2022 Office outpatient visit 25 minutes Nichelle Bailey II [facility] Start: 04-03-2022 End: 04-03-[address] GREG ALEMAN Facility:[facility] Start: 02-05-2022 End: 02-06-2022 ambulatory AUDELIA UNGER Facility:[facility] Start: 01-29-2022 End: 03-05-2022 ambulatory NICHELLE LYNN Facility:[facility] Start: 01-18-2022 End: 01-18-2022 ambulatory Nichelle Canóvanas II Other [facility] Start: 01-18-2022 Office outpatient visit 25 minutes Nichelle Canóvanas II [facility] Start: 01-03-2022 End: 01-03-2022 ambulatory Nichelle Can[facility]vanas II Other [facility] Start: 01-03-2022 Office outpatient visit 15 minutes Nichelle Canóvanas II [facility] Start: 09-14-2021 End: 09-14-2021 ambulatory Nichelle Canóvanas II Other [facility] Start: 09-14-2021 Office outpatient ne w 30 minutes Nichelle Canóvanas II [facility] Procedures Date Procedure Procedure Detail Performing Clinician Start: 06-17-2019 Colonoscopy [facility] Start: 06-17-2019 Esophagoduodenostomy [facility] Comment on above: with biopsy Start: 01-22-2006 Esophagogastroduodenoscopy [facility] [employer] Start: 12-06-2005 Colonoscopy [facility] Abdominal hysterectomy Gerald [email or web address] [email or web address] Bilateral salpingect orestes with oophorectomy [facility] History of subtotal thyroidectomy [facility] [employer] Immunizations Immunization Date Immunization Notes Care Provider Syed molina NEGATED: Highlighted row has not occurred!06-26-2019 influenza virus vaccine, unspecified formulation [facility] [employer] [facility] [place] Comment on above: Result Comment: Will consult with primary care physician Payers Date Payer Category Payer Medicaid [id number] 2. [id number] 1957 Medicare [id number] 2.1 [id number] 1957 Unknown [id number] 2.1 [id number] 1957 Unknown [id number] 2.16.84 0.1.713913.3.579.2.593 1957 Unknown [id number] 2.16.84 0.1.161328.3.579.2.593 1957 Unknown [id number] 2.16.84 0.1.041198.3.579.2.593 1957 Unknown [id number] 2.16.84 0.1.267980.3.579.2.593 1957 Unknown [id number] 2.16.84 0.1.753966.3.579.2.593 1957 Unknown [id number] 2.16.84 0.1.006653.3.579.2.593 1957 Unknown [id number] 2.16.84 0.1.572535.3.579.2.593 1957 Unknown [id number] 2.16.84 0.1.767277.3.579.2.593 1957 Unknown [id number] 2.16.84 0.1.791519.3.579.2.593 1957 Unknown [id number] 2.16.84 0.1.496381.3.579.2.593 1957 Unknown [id number] 2.16.84 0.1.146593.3.579.2.593 1957 Unknown [id number] 2.16.8 40.1.878829.3.579.2.727 Social History Date Type Detail Facility Sex Assigned At [facility] Start: 03-10-2024 Tobacco smoking status Ex-smoker (fi nding) [facility] Tobacco smoking status Never [facility] [place] Functional Status Date Assessment Result Facility 03-10-2024 Functional Status N/A [facility] [place] Clinical Notes 09-14-2021 to 03-13-2024 Note Date [...] Anxiety Bilateral lo (more content not included)... [facility] Comment on above: Result Comment: Elec tronically Signed By: ERIK SMALLWOOD, Pablo Peterson.shay\Date and Time Signed: 03/13/24 10:51 EDT 10-17-2023 Note Lipids elevated and pt prefers to start with diet and lifestyle modifications Will repeat lipid level in 3 months to re-evaluate [facility] 10-17-2023 Note Hypertension is elev ated in office, she is adamant that b/p is well controlled at home. Staff to call pt in 1-2 weeks to review b/p log. Continue lisinopril 5 mg daily- she reports a dry cough but states this is r/t her lung disease- we discussed side effect of lisinopril can be cough and she voiced understanding. [facility] 10-17-2023 Note Stable continue all medications [facility] 10-17-2023 Note [facility] C[facility] ESS [...] wall motion abnor (more content not included)... [facility] 10-17-2023 Note Patient here for 6 [...] All other systems reviewed and are negative. [facility] 03-25-2023 Note [facility] Subjective Sherie Cunningham is a [...] right sided pressu (more content not included)... [facility] 06-25-2022 Note PROCEDURE: CT CSPINE WO [...] authenticated by: YENI RUST Date: 2022-06-25 13:55 [facility] 06-25-2022 Note PROCEDURE: XR HAND L T [...] authenticated by: BARRY HO Date: 2022-06-25 13:49 [facility] 04-19-2022 Evaluation note Encounter Date Diagnosis [...] we will get a lumbar spine x-ray. [facility] Other 05-05-2022 Evaluation note* Encounter Date Diagnosis [...] a viscosupplementation. 6. Follow up 3 months [facility] Other 04-20-2022 Evaluation note* Encounter Date Diagnosis [...] knee compared to a partial knee replacement. [facility] Other 12-30-2021 Evaluation note* Encounter Date Diagnosis [...] this well. 5. Follow up 3 months [facility] Other Evaluation + Plan note No data available for this section Area 1 Security History general Narrative - Reported* Type Description Date Medical History COPD Medical History emphysema Medical History migraine headache Medical History Panic attacks Surgical History thyroidectomy-partial Surgical History hysterectomy Surgical History oophorectomy Surgical History eye surgery Hospitalization History pneumonia Hospitalization History chest pain 04/2021 [facility] Other Hospital Discharge instructions No data available for this section Area 1 Security Progress note No data available for this section Area 1 Security Summary Purpose Family History No Family History [...] section and content) DATE CREATED AUTHOR 11/12/2020 [facility] DATE CREATED AUTHOR AUTHOR'S ORGANIZ ATION 12/04/2021 [facility] DATE CREATED AUTHOR AUTHOR'S ORGANIZ ATION 11/03/2022 [facility] DATE CREATED AUTHOR AUTHOR'S ORGANIZ ATION 10/18/2023 [facility] DATE CREATED AUTHOR AUTHOR'S ORGANIZ ATION 03/15/2024 [facility] REASON FOR VISIT (unrecogniz ed section and content) Right Knee PainRECHECK RT KN EERecheck Right KneeRecheck Right knee Patient Care team informatio n (unrecognized section and content) Personnel Name: Greg Aleman MD Address: Address: [address] [place] [address] FOR RECORDS PERTAINING TO PATIENTS WHO ARE [...] BE BASED ON THE PRIMARY CLINICAL RECORDS. [facility] [employer] [facility]. provides no warranty or guarantee of the accuracy or completeness of information in this document.
[2024-04-22] MEDS: LACTATED RINGER'S SOLUTION 1,000 ML 50 ML IV (07:57)
[2024-04-22 09:12] VITALS: BP 97/53; PULSE 62; O2SAT 98
[2024-04-22 09:25] VITALS: BP 111/71; PULSE 57; O2SAT 94
== END 2024-04-22 09:43 | disposition home or self-care (01) ==
PROVIDERS: PCP Family Medicine; Visit Provider Surgery
PROC: (CPT 813; principal; 2024-04-22 08:35)
DX: R10.11 Right upper quadrant pain (principal); R10.32 Left lower quadrant pain; R19.7 Diarrhea, unspecified; R11.0 Nausea; Z87.19 Personal history of other diseases of the digestive system; J44.9 Chronic obstructive pulmonary disease, unspecified; I10 Essential (primary) hypertension; E78.5 Hyperlipidemia, unspecified; M79.7 Fibromyalgia; Z90.710 Acquired absence of both cervix and uterus; Z87.891 Personal history of nicotine dependence; Z86.73 Personal history of transient ischemic attack (TIA), and cerebral infarction without residual deficits; K21.9 Gastro-esophageal reflux disease without esophagitis
CPT/HCPCS: 43235; 45378; J2704

== ENCOUNTER 2024-05-07 10:08 | Outpatient (OUT) | payer MEDICARE, MEDICAID, SELFPAY ==
--- OUTSIDE RECORDS SUMMARY | 2024-05-07 10:28 | XMS_ITS | CCD ---
Author Organization [facility] Inform ion [facility] Care Team Providers Care Patient Care Technician Name Role Phone Nichelle Bailey II Unavailable RON CURTIS Attending Unavailable NICHOLAS, DR GARZA Primary Care Unavailable RON CURTIS Admitting Unavailable BARRERA, DR YENI Sunshine Consulting Unavailable GEORGIA, DR BARRY Shepherd Consulting Unavailable RON CURTIS Consulting Unavailable PABLO MILLER Consulting Unavailable NICHOALS, DR GARZA Admitting Unavailable JINY, DR GARZA [...] Unavailable ZIEBBRAYDEN, DR BARRY Shepherd Consulting Unavailable INCHOLAS, DR GARZA Primary Care Unavailable NICHOLAS, DR GARZA Attending Unavailable NICHOLAS, DR GARZA Consulting Unavailable NICHOLAS, DR GARZA Admitting Unavailable BARRERA, DR YENI Sunshine Consulting Unavailable JOSSIE CIFUENTES Attending Unavailable HODR GREG Collier Primary Care Unavailable JOSSIE CIFUENTES Admitting Unavailable JOSSIE CIFUENTES Consulting Unavailable NICHELLE BAILEY Admitting Unavailable NICHELLE BAILEY Attending Unavailable DR GREG ALEMAN Primary Care Unavailable DANIEL RIBEIRO Attending Unavailable HAY BLAS Attending Unavailable Greg Aleman Primary Care Physician Greg Aleman Referring Unavailable Pablo VALENCIA Attending Unavailable Pablo VALENCIA Attending Unavailable Allergies Allergy Classification Reported Allergen(s) Allergy Type Date of Onset Reaction(s) Facility (2 sources) Coconut extract; Translations: [COCONUT] Drug Allergy [address] [facility] Repository (1 source) Misc-Food; Translations: [Misc-Food] Food allergy (disorder) [address] 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 Normal [facility] Consent for Procedure/Surger yon 03-11-2024 Consent for Procedure/Surge ry [id number]#[id number] [facility] Facesheeton 03-11-2024 Facesheet [id number]#1.00TIFF [facility] Ambulatory Visit Summaryon 0 03-10-2024 Ambulatory Visit Summary SHERIE CUNNINGHAM :1955 Visit Date:03/10/2024 Ambulatory Visit Instructions Your Care Team Attending Physician - Pablo VALENCIA MD Primary Care Physician - Greg Aleman MD [...] for choosing us for your care. Normal [facility] RAD - Ultrasound Reporton RAD - Ultrasound Report [id number] Normal [facility] Physician Referralon 024 Physician Referral [id number]#[id number] Normal [facility] Office Visiton 10-17-2023 Follow-up visit [id number] Sam Cunningham 1955 F Date Provider Department Center 10/17/[address] [facility] Family History Problem Relation Age of Onset Anemia Mother Breast cancer Mother Diabetes Mother Hypertension Mother Hyperlipidemia Mother Coronary artery disease Father Diabetes Father Hypertension Father Hyperlipidemia Father Stroke Paternal Grandmother Coronary artery disease Paternal Grandmother Family Status - Relation Status Age at Mother Father Paternal Grandmother Level of Service:92173 DC OFFICE/OUTPATIENT ESTABLISHED MOD MDM 30 MIN Normal [facility] Office Visiton 03-25-2023 Follow-up visit [id number] Sam Cunningham 1955 Date Provider Department Center 03/25/[address] [facility] Family History Problem Relation Age of Onset Anemia Mother Breast cancer Mother Diabetes Mother Hypertension Mother Hyperlipidemia Mother Coronary artery disease Father Diabetes Father Hypertension Father Hyperlipidemia Father Stroke Paternal Grandmother Coronary artery disease Paternal Grandmother Family Status - Relation Status Age at Mother Father Paternal Grandmother Level of Service:94173 DC OFFICE/OUTPATIENT ESTABLISHED MOD MDM 30-39 MIN Reason for Visit and Comments: Follow-up [044951] Normal [facility] ACTH, PLASMAon 10-30-2022 ACTH, Plasma 16.7 pg/mL Normal 7.2-63.[address] [facility] Comment on above: Result Comment: ACTH reference interval for samples collected between 7 and 10 AM. Performed By: #### U [facility] #### [facility] [address] [place] [address] Dr. Annie Rain CORTISOLon 10-30-2022 Cortisol 4.7 ug/dL Normal [facility] Comment on above: Result Comment: Cortisol AM 6.2 - 19.4 Cortisol PM 2.3 - 11.9 Performed By: #### C ORTISO #### [facility] [address] [place] [address] Dr. Annie Rain FSHon 10-30-2022 FSH 57.8 mIU/mL Normal [facility] Comment on above: Result Comment: Adult Female: Follicular phase 3.5 - 12.5 Ovulation phase 4.7 - 21.5 Luteal phase 1.7 - 7.7 Postmenopausal 25.8 - 134.8 Performed By: #### L BCFSH #### [facility] [address] [place] [address] Dr. Annie Rain GROWTH HORMONEon 10-30-2022 Growth Hormone, Serum 1.5 ng/mL Normal 0.0-10.[address] [facility] Comment on above: Performed By: #### UAMIC #### [facility] [address] [place] [address] Dr. Annie Rain AQKRSGU-AJIL-WUGWSU-FACTOR 1 on 10-30-2022 Insulin-Like Growth Factor I 94 ng/mL Normal 57-[address] [facility] Comment on above: Performed By: #### INSGF1 #### [facility] [address] [place] [address] Dr. Annie Rain LUTEINIZING HORMONE (LH)on 0 10-30-2022 LH 22.1 mIU/mL Normal [facility] Comment on above: Result Comment: Adult Female: Follicular phase 2.4 - 12.6 Ovulation phase 14.0 - 95.6 Luteal phase 1.0 - 11.4 Postmenopausal 7.7 - 58.5 Performed By: #### L BCLH #### [facility] [address] [place] [address] Dr. Annie Rain PROLACTINon 10-30-2022 Prolactin 6.4 ng/mL Normal 4.8-23.[address] [facility] Comment on above: Performed By: #### PROLAC #### [facility] [address] [place] [address] Dr. Annie Rain FREE T4on 10-29-2022 Free T4 [Mass/Vol] 1.01 ng/dL Normal 0.76-1.[address] [facility] Comment on above: Performed By: #### FT4 #### [facility] [address] [address] [address] Annie Rain PROF CHEM 8 (BAS METB)on Anion gap [Moles/Vol] 11.4 mmol/L Normal [facility] Comment on above: Performed By: #### UAMIC #### [facility] [address] [place] [address] Dr. Annie Rain Calcium [Mass/Vol] 9.4 mg/dL Normal 8.5-10.[address] [facility] Comment on above: Performed By: #### UAMIC #### [facility] [address] [address] [address] Annie Rain Chloride [Moles/Vol] 105 mmol/L Normal 98-[address] [facility] Comment on above: Performed By: #### UAMIC #### [facility] [address] [place] [address] Dr. Annie Rain CO2 [Moles/Vol] 29.6 mmol/L Normal 21.0-32.0 [facility] Comment on above: Performed By: #### UAMIC #### [facility] [address] [place] [address] Dr. Annie Rain Creatinine [Mass/Vol] 0.55 mg/dL Normal 0.55-1.[address] [facility] Comment on above: Performed By: #### UAMIC #### [facility] [address] [place] [address] Dr. Annie Rain EGFR-AF PUERTO RICAN >60 Normal >=60 [facility] Comment on above: Performed By: #### UAMIC #### [facility] [address] [place] [address] Dr. Annie Rain EGFR-NON AF PUERTO RICAN >60 Normal >=60 [facility] Comment on above: Performed By: #### UAMIC #### [facility] [address] [place] [address] Dr. Annie Rain Glucose [Mass/Vol] 80 mg/dL Normal 74-[address] [facility] Comment on above: Performed By: #### UAMIC #### [facility] [address] [address] [address] Annie Rain Potassium [Moles/Vol] 4.0 mmol/L Normal 3.5-5.1 [facility] Comment on above: Performed By: #### UAMIC #### [facility] [address] [place] [address] Dr. Annie Rain Sodium [Moles/Vol] 142 mmol/L Normal 136-145 [facility] Comment on above: Performed By: #### UAMIC #### [facility] [address] [address] [address] Annie Rain Urea nitrogen [Mass/Vol] 8.0 mg/dL Normal 7.0-18.[address] [facility] Comment on above: Performed By: #### UAMIC #### [facility] [address] [place] [address] Dr. Annie Rain Urea nitrogen/Creati nine [Mass ratio] 14.5 mg/mg Normal [facility] Comment on above: Performed By: #### UAMIC #### [facility] [address] [place] [address] Dr. Annie Rain TSHon 10-29-2022 TSH 0.404 uIU/mL Normal 0.358-3.740 [facility] Comment on above: Performed By: #### UAMIC #### [facility] [address] [place] [address] Dr. Annie Rain XR LSPINE MIN 4 [...] YENI RUST Date: 2022-08-27 07:31 Normal [facility] MRI BRAIN WO W CONon 022 [...] by: BARRY HO Date: 2022-08-15 22:[address] [facility] CREATININEon 08-15-2022 Creatinine [Mass/Vol] 0.62 mg/dL Normal 0.55-1.[address] [facility] Comment on above: Performed By: #### CREA #### [facility] [address] [place] [address] Dr. Annie Rain EGFR-AF PUERTO RICAN >60 Normal >=60 [facility] Comment on above: Performed By: #### CREA #### [facility] [address] [place] [address] Dr. Annie Rain EGFR-NON AF PUERTO RICAN >60 Normal >=60 [facility] Comment on above: Performed By: #### CREA #### [facility] [address] [place] [address] ABD/PELVIS WO CONon [...] by: YENI RUST Date: 2022-06-25 13:[address] [facility] CT HEAD WO CONon 06-25-2022 CT [...] PABLO MILLER Date: 2022-06-25 13:56 Normal [facility] CULTURE URINEon 06-20-2022 CULTURE URINE Culture Observations : LIGHT GROWTH OF MIXED GENITAL SILAS. NO POTENTIAL PATHOGENS SEEN. Normal [facility] Comment on above: Performed By: #### INSGF1 #### [facility] [address] [place] [address] Dr. Annie Rain UA RANDOM W/MICROSCOPICon BACTERIA NONE SEEN Normal NONE SEEN [facility] Comment on above: Performed By: #### UAMIC #### [facility] [address] [place] [address] Dr. Annie Rain Bilirubin Ql (U) Negative Normal NEGATIVE [facility] Comment on above: Performed By: #### UAMIC #### [facility] [address] [place] [address] Dr. Annie Rain CAST NONE SEEN Normal NONE SEEN [facility] Comment on above: Performed By: #### UAMIC #### [facility] [address] [place] [address] Dr. Annie Rain Clarity (U) CLEAR Normal CLEAR [facility] Comment on above: Performed By: #### UAMIC #### [facility] [address] [place] [address] Dr. Annie Rain Color (U) YELLOW Normal YELLOW [facility] Comment on above: Performed By: #### UAMIC #### [facility] [address] [place] [address] Dr. Annie Rain Crystals LM Nom (Urine sed) NONE SEEN Normal NONE SEEN [facility] Comment on above: Performed By: #### UAMIC #### [facility] [address] [place] [address] Dr. Annie Rain Epithelial cells LM Ql (Urine sed) RARE Normal NONE SEEN /RARE [facility] Comment on above: Performed By: #### UAMIC #### [facility] [address] [place] [address] Dr. Annie Rain Glucose Ql (U) Negative Normal NEGATIVE [facility] Comment on above: Performed By: #### UAMIC #### [facility] [address] [place] [address] Dr. Annie Rain Hemoglobin Ql (U) SMALL Abnormal NEGATIVE [facility] Comment on above: Performed By: #### UAMIC #### [facility] [address] [place] [address] Dr. Annie Rain Ketones Ql (U) TRACE Abnormal NEGATIVE [facility] Comment on above: Performed By: #### UAMIC #### [facility] [address] [place] [address] Dr. Annie Rain LEUKOCYTES Negative Normal NEGATIVE [facility] Comment on above: Performed By: #### UAMIC #### [facility] [address] [place] [address] Dr. Annie Rain MUCOUS NONE SEEN Normal NONE SEEN [facility] Comment on above: Performed By: #### UAMIC #### [facility] [address] [place] [address] Dr. Annie Rain Nitrite Ql (U) Negative Normal NEGATIVE [facility] Comment on above: Performed By: #### UAMIC #### [facility] [address] [place] [address] Dr. Annie Rain pH (U) 6.5 [pH] Normal 5-[address] [facility] Comment on above: Performed By: #### UAMIC #### [facility] [address] [place] [address] Dr. Annie Rain RBC 2-5 Abnormal 0-[address] [facility] Comment on above: Performed By: #### UAMIC #### [facility] [address] [place] [address] Dr. Annie Rain SPEC GRAVITY 1.020 Normal 1.005-<=1.[address] [facility] Comment on above: Performed By: #### UAMIC #### [facility] [address] [place] [address] Dr. Annie Rain UA PROTEIN Negative Normal NEGATIVE/ TRACE [facility] Comment on above: Performed By: #### UAMIC #### [facility] [address] [address] [address] Annie Rain Urobilinogen Qn (U) 1.0 {Willam'U}/dL Normal 0.2 - 1.0 [facility] Comment on above: Performed By: #### UAMIC #### [facility] [address] [address] [address] Annie Rain WBC 0-2 Abnormal NONE SEEN [facility] Comment on above: Performed By: #### UAMIC #### [facility] [address] [address] [address] CHEST WO CONon [...] in 12 months. Electronically authenticated by: YENI Oliva: 2022-06-08 13:10 Normal [facility] CULTURE URINEon 05-30-2022 CULTURE URINE Culture Observations : NO GROWTH. Normal [facility] Comment on above: Performed By: #### INSGF1 #### [facility] [address] [place] [address] Dr. Annie Rain UA RANDOM W/MICROSCOPICon BACTERIA TRACE Abnormal NONE SEEN [facility] Comment on above: Performed By: #### UAMIC #### [facility] [address] [place] [address] Dr. Annie Rain Bilirubin Ql (U) Negative Normal NEGATIVE [facility] Comment on above: Performed By: #### UAMIC #### [facility] [address] [place] [address] Dr. Annie Rain CAST NONE SEEN Normal NONE SEEN [facility] Comment on above: Performed By: #### UAMIC #### [facility] [address] [place] [address] Dr. Annie Rain Clarity (U) CLEAR Normal CLEAR [facility] Comment on above: Performed By: #### UAMIC #### [facility] [address] [place] [address] Dr. Annie Rain Color (U) LT. YELLOW Normal YELLOW [facility] Comment on above: Performed By: #### UAMIC #### [facility] [address] [place] [address] Dr. Annie Rain Crystals LM Nom (Urine sed) NONE SEEN Normal NONE SEEN [facility] Comment on above: Performed By: #### UAMIC #### [facility] [address] [place] [address] Dr. Annie Rain Epithelial cells LM Ql (Urine sed) RARE Normal NONE SEEN /RARE [facility] Comment on above: Performed By: #### UAMIC #### [facility] [address] [place] [address] Dr. Annie Rain Glucose Ql (U) Negative Normal NEGATIVE [facility] Comment on above: Performed By: #### UAMIC #### [facility] [address] [place] [address] Dr. Annie Rain Hemoglobin Ql (U) Negative Normal NEGATIVE [facility] Comment on above: Performed By: #### UAMIC #### [facility] [address] [place] [address] Dr. Annie Rain Ketones Ql (U) Negative Normal NEGATIVE [facility] Comment on above: Performed By: #### UAMIC #### [facility] [address] [place] [address] Dr. Annie Rain LEUKOCYTES Negative Normal NEGATIVE [facility] Comment on above: Performed By: #### UAMIC #### [facility] [address] [place] [address] Dr. Annie Rain MUCOUS NONE SEEN Normal NONE SEEN [facility] Comment on above: Performed By: #### UAMIC #### [facility] [address] [place] [address] Dr. Annie Rain Nitrite Ql (U) Negative Normal NEGATIVE [facility] Comment on above: Performed By: #### UAMIC #### [facility] [address] [place] [address] Dr. Annie Rain pH (U) 6.0 [pH] Normal 5-[address] [facility] Comment on above: Performed By: #### UAMIC #### [facility] [address] [place] [address] Dr. Annie Rain RBC 0-2 Normal 0-[address] [facility] Comment on above: Performed By: #### UAMIC #### [facility] [address] [place] [address] Dr. Annie Rain SPEC GRAVITY <=1.005 Abnormal 1.005-<=1.[address] [facility] Comment on above: Performed By: #### UAMIC #### [facility] [address] [place] [address] Dr. Annie Rain UA PROTEIN Negative Normal NEGATIVE/ TRACE [facility] Comment on above: Performed By: #### UAMIC #### [facility] [address] [place] [address] Dr. Annie Rain Urobilinogen Qn (U) 0.2 {Willam'U}/dL Normal 0.2 - 1.0 [facility] Comment on above: Performed By: #### UAMIC #### [facility] [address] [address] [address] Annie Rain WBC 0-2 Abnormal NONE SEEN [facility] Comment on above: Performed By: #### UAMIC #### [facility] [address] [place], [place] [address] Dr. Annie Rain Covid-19 PCR ([facility])on 03-16 SARS-CoV-2 (COVID-19) RNA GREGOR+probe Ql (Unsp spec) Detected Critically abnormal NOT DETECTED [facility] Comment on above: Result Comment: This test is not yet jose roved or cleared by the [place] FDA. When there are no FDA-approved or cleared tests available, and other criteria are met, FDA can make tests available under an emergency access mechanism called an Emergency Use Authorization (EUA). The EUA for this test is supported by the [place] of Health and Human Service's declaration that [...] used). Performed By: #### I NSGF1 #### [facility] [address] [place] [address] [address] Annie Rain MRI BRAIN WO W [...] prior studies available for comparison. Normal [facility] BUNon 02-05-2022 Urea nitrogen [Mass/Vol] 13.0 mg/dL Normal 7.0-18.[address] [facility] Comment on above: Performed By: #### CREA, BUN #### [facility] [address] [place] [address] Dr. Annie Rain CREATININEon 02-05-2022 Creatinine [Mass/Vol] 0.70 mg/dL Normal 0.55-1.[address] [facility] Comment on above: Performed By: #### INSGF1 #### [facility] [address] [place] [address] Dr. Annie Rain EGFR-AF PUERTO RICAN >60 Normal >=60 [facility] Comment on above: Performed By: #### INSGF1 #### [facility] [address] [place] [address] Dr. Annie Rain EGFR-NON AF PUERTO RICAN >60 Normal >=60 [facility] Comment on above: Performed By: #### INSGF1 #### [facility] [address] [place] [address] Dr. Annie Rain XR pelvis 1-2Von 09-14-2021 XR pelvis 1-2V [facility] Main [place] [address] [place] [address] XRay Report Signed Patient: Sherie Cunningham MR#: [id number] : 1955 Acct:[id number] Age/Sex: 66 / F ADM Date: 09/14/21 Loc: ICXD [facility]: [facility] Attending Dr: Nichelle Bailey II, MD Ordering Provider: Nichelle Bailey MD Date of Service: 09/14/21 XR/XR knee RT 4V*: M25.561 ([id number]) XR/XR pelvis 1-2V: M25.561 Copies to: Nichelle [...] Cedric Caal M.D.09/14/2021 11:59 AM Dictation Location: [place] [address] Transcribed By: [facility] 09/14/21 1159 Dictated By: Cedric Caal DO 09/14/21 1118 Signed By: 09/14/21 1159 Normal [facility] MR head/brain wo/w conon MR head/brain wo/w con [facility] Main [address] [address] MRI Report Signed Patient: Sherie Cunningham MR#: [id number] : 1955 Acct:[id number] Age/Sex: 65 / F ADM Date: 11/07/20 Loc: MR Room: Type: [facility] Attending Dr: Barry Woodson MD [...] Remberto Coulter M.D.11/08/2020 11:48 AM Dictation Location: [facility] Transcribed By: [facility] 11/08/20 1148 Dictated By: Remberto Coulter II, MD 11/08/20 1135 Signed By: 11/08/20 1148 Normal [facility] ISTAT XRay CREon 11-07-2020 Creatinine [Mass/Vol] 0.6 mg/dL Normal 0.6-1.3 [facility] Comment on above: Result Comment: ER/ESD physician is noti fied/shown all ISTAT results. Critical values may be confirmed by laboratory testing if deemed necessary by ER attending doctor. Performed By: #### I SCRE #### [address] Point of Care testing , ISTAT GFR ( > 60 Normal [facility] Comment on above: Result Comment: GFR estimated reference range: According to KDOQI guidelines, <60 ml/min/1.73m2 is sufficient to diagnose a patient with chronic kidney disease. PERFORMED BY: [place] [address] PATHOLOGIST HEAD OF [employer] MARK SERRATO M.D. Performed By: #### I SCRE #### [facility] [address] [place] [address] Point of Care testing , ISTAT GFR (Non- Am > 60 [facility] Comment on above: Performed By: #### ISCRE #### [address] Point of Care testing , Vital Signs Date Time Vital Sign Value Performing Clinician Facility 03-10-2024 14:14-0400 Blood Pressure Location Pablo VALENCIA [facility] 03-10-2024 14:14-0400 Diastolic blood pressure 78 mm[Hg] Pablo VALENCIA [facility] 03-10-2024 14:14-0400 Heart rate 72 /min Pablo VALENCIA [facility] 03-10-2024 14:14-0400 Respiratory rate 16 /min Pablo VALENCIA [facility] 03-10-2024 14:14-0400 Systolic blood pressure 136 mm[Hg] Pablo VALENCIA [facility] 04-19-2022 12:15-0400 Body height 162.56 cm Nichelle Oakland II Other [facility] 04-19-2022 12:15-0400 Body mass index (BMI) [Ratio] 27.46 kg/m2 Nichelle Oakland II Other [facility] 04-19-2022 12:15-0400 Body weight 72.58 kg Nichelle Lynn II Other [facility] Other 01-18-2022 10:15-0400 Body height 162.56 cm Nichelle Oakland II Other [facility] Other 01-18-2022 10:15-0400 Body mass index (BMI) [Ratio] 27.98 kg/m2 Nichelle Oakland II Other [facility] Other 01-18-2022 10:15-0400 Body weight 73.94 kg Nichelle Oakland II Other [facility] Other 01-03-2022 12:45-0400 Body height 162.56 cm Nichelle Oakland II Other [facility] Other 01-03-2022 12:45-0400 Body mass index (BMI) [Ratio] 27.98 kg/m2 Nichelle Oakland II Other [facility] Other 01-03-2022 12:45-0400 Body weight 73.94 kg Nichelle Oakland II Other [facility] Other 09-14-2021 10:00-0500 Body height 162.56 cm Nichelle Bailey II Other [facility] Other 09-14-2021 10:00-0500 Body mass index (BMI) [Ratio] 27.63 kg/m2 Nichelle Bailey II Other [facility] Other 09-14-2021 10:00-0500 Body weight 73.03 kg Nichelle Bailey II Other [facility] Other Encounters Encounter Date Encounter Type Care Provider Facility Start: 04-22-2024 End: 04-22-2024 ambulatory Pablo VALENCIA Facility:CD:[id number] Start: 03-10-2024 End: 03-10-2024 ambulatory Greg Aleman Facility: [facility] Start: 03-10-2024 End: 03-10-2024 Patient encounter procedure Pablo VALENCIA [facility] Start: 10-17-2023 End: 10-17-2023 ambulatory HAY BLAS [facility] Start: 03-25-2023 End: 03-25-20[facility] Start: 10-29-2022 End: 10-30-2022 ambulatory JOSSIE CIFUENTES [...] Facility:[facility] Start: 04-19-2022 End: 04-19-2022 ambulatory Nichelle Oakland II Other [facility] Other Start: 04-19-2022 Office outpatient visit 25 minutes Nichelle Lynn II [facility] Start: 04-03-2022 End: 04-03-[address] GREG ALEMAN Facility:[facility] Start: 02-05-2022 End: 02-06-2022 ambulatory AUDELIA UNGER Facility:[facility] Start: 01-29-2022 End: 03-05-2022 ambulatory NICHELLE LYNN Facility:[facility] Start: 01-18-2022 End: 01-18-2022 ambulatory Nichelle Oakland II Other [facility] Other Start: 01-18-2022 Office outpatient visit 25 minutes Nichelle Oakland II [facility] Start: 01-03-2022 End: 01-03-2022 ambulatory Nichelle Oakland II Other [facility] Other Start: 01-03-2022 Office outpatient visit 15 minutes Nichelle Oakland II [facility] Start: 09-14-2021 End: 09-14-2021 ambulatory Nichelle Oakland II Other [facility] Other Start: 09-14-2021 Office outpatient ne w 30 minutes Nichelle Lynn II [facility] Procedures Date Procedure Procedure Detail Performing Clinician Start: 06-17-2019 Colonoscopy Pablo NILL Start: 06-17-2019 Esophagoduodenostomy Pablo NILL Comment on above: with biopsy Start: 01-22-2006 Esophagogastroduodenoscopy Pablo NILL Start: 12-06-2005 Colonoscopy Pablo NILL Abdominal hysterectomy Gerald VALENCIA Bilateral salpingect orestes with oophorectomy Pablo ABRAHAMTere History of subtotal thyroidectomy Pablo ABRAHAMTere Immunizations Immunization Date Immunization Notes Care Provider Fa ciliraghu NEGATED: Highlighted row has not occurred!06-26-2019 influenza virus vaccine, unspecified formulation Pablo ABRAHAMTere [facility] Comment on above: Result Comment: Will consult with primary care physician Payers Date Payer Category Payer Medicaid [id number] 2. [id number] 1957 Medicare [id number] 2.1 [id number] 1957 Unknown [id number] 2.1 [id number] 1957 Unknown [id number] 2.16.84 0.1.051056.3.579.2.593 1957 Unknown [id number] 2.16.84 0.1.608298.3.579.2.593 1957 Unknown [id number] 2.16.84 0.1.473969.3.579.2.593 1957 Unknown [id number] 2.16.84 0.1.176482.3.579.2.593 1957 Unknown [id number] 2.16.84 0.1.947524.3.579.2.593 1957 Unknown [id number] 2.16.84 0.1.091853.3.579.2.593 1957 Unknown [id number] 2.16.84 0.1.950867.3.579.2.593 1957 Unknown [id number] 2.16.84 0.1.534524.3.579.2.593 1957 Unknown [id number] 2.16.84 0.1.466638.3.579.2.593 1957 Unknown [id number] 2.16.84 0.1.356945.3.579.2.593 1957 Unknown [id number] 2.16.84 0.1.583821.3.579.2.593 1957 Unknown [id number] 2.16.8 40.1.849088.3.579.2.727 1957 Unknown [id number] 2.16.8 40.1.334225.3.579.2.727 Social History Date Type Detail Facility Sex Assigned At [facility] Start: 03-10-2024 Tobacco smoking status Ex-smoker (fi nding) [facility] Tobacco smoking status Never [facility] Functional Status Date Assessment Result Facility 03-10-2024 Functional Status N/A [facility] Clinical Notes 09-14-2021 to 03-13-2024 Note Date [...] Anxiety Bilateral lo (more content not included)... [facility] Comment on above: Result Comment: Elec tronically Signed By: ERIK SMALLWOOD, Pablo Workman\Date and Time Signed: 03/13/24 10:51 EDT 10-17-2023 Note Lipids elevated and pt prefers to start with diet and lifestyle modifications Will repeat lipid level in 3 months to re-evaluate [facility] 10-17-2023 Note Hypertension is elev ated in office, she is adamant that b/p is well controlled at home. Staff to call pt in 1-2 weeks to review b/p log. Continue lisinopril 5 mg daily- she reports a dry cough but states this is r/t her lung disease- we discussed side effect of lisinopril can be cough and she voiced understanding. [facility] 10-17-2023 Note Stable continue all medications [facility] 10-17-2023 Note [facility] C[facility] PROGR ESS [...] wall motion abnor (more content not included)... [facility] 10-17-2023 Note Patient here for 6 [...] All other systems reviewed and are negative. [facility] 03-25-2023 Note [place] [facility] Subjective Sherie Cunningham is a [...] right sided pressu (more content not included)... [facility] 06-25-2022 Note PROCEDURE: CT CSPINE WO [...] authenticated by: YENI RUST Date: 2022-06-25 13:[address] [facility] 06-25-2022 Note PROCEDURE: XR HAND L [...] authenticated by: BARRY HO Date: 2022-06-25 13:[address] [facility] 04-19-2022 Evaluation note Encounter Date Diagnosis [...] we will get a lumbar spine x-ray. [facility] Other 05-05-2022 Evaluation note* Encounter Date Diagnosis [...] a viscosupplementation. 6. Follow up 3 months [facility] 04-20-2022 Evaluation note* Encounter Date Diagnosis [...] knee compared to a partial knee replacement. [facility] 12-30-2021 Evaluation note* Encounter Date Diagnosis [...] this well. 5. Follow up 3 months [facility] Other Evaluation + Plan note No data available for this section [facility] History general Narrative - Reported* Type Description Date Medical History COPD Medical History emphysema Medical History migraine headache Medical History Panic attacks Surgical History thyroidectomy-partial Surgical History hysterectomy Surgical History oophorectomy Surgical History eye surgery Hospitalization History pneumonia Hospitalization History chest pain 04/2021 [facility] Discharge instructions No data available for this section [facility] Progress note No data available for this section [facility] Plot Projects Summary Purpose Family History No Family History [...] section and content) DATE CREATED AUTHOR 11/12/2020 [facility] DATE CREATED AUTHOR AUTHOR'S ORGANIZ ATION 12/04/2021 [facility] DATE CREATED AUTHOR AUTHOR'S ORGANIZ ATION 11/03/2022 [facility] DATE CREATED AUTHOR AUTHOR'S ORGANIZ ATION 10/18/2023 [facility] DATE CREATED AUTHOR AUTHOR'S ORGANIZ ATION 05/01/2024 [facility] REASON FOR VISIT (unrecogniz ed section and content) Right Knee PainRECHECK RT KN EERecheck Right KneeRecheck Right knee Patient Care team informatio n (unrecognized section and content) Personnel Name: Greg Aleman MD Address: Address: [address] [place] [address] FOR RECORDS PERTAINING TO PATIENTS WHO ARE [...] BE BASED ON THE PRIMARY CLINICAL RECORDS. [facility] [employer] [facility]. provides no warranty or guarantee of the accuracy or completeness of information in this document.
[2024-05-07 11:28] LABS: Chol HDL Ratio 3.2; Cholesterol 242 mg/dL (<=200); HDL Cholesterol 76 mg/dL (40-60); Triglycerides 53 mg/dL (<=150); VLDL CHOLESTEROL 10.6 mg/dL
== END 2024-05-07 10:09 | disposition home or self-care (01) ==
LOC: LAB 10:12
PROVIDERS: PCP Family Medicine; Visit Provider Nurse Practitioner
DX: E78.2 Mixed hyperlipidemia (principal)
CPT/HCPCS: 36415; 80061

== ENCOUNTER 2024-05-07 10:16 | Outpatient (OUT) | payer MEDICARE, MEDICAID, SELFPAY ==
--- OUTSIDE RECORDS SUMMARY | 2024-05-07 10:29 | XMS_ITS | CCD ---
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 Role Phone Nichelle Bailey II Unavailable [...] Attending Unavailable Greg Aleman Primary Care Physician [phone] Greg Aleman Referring Unavailable Pablo VALENCIA Attending Unavailable Pablo VALENCIA Attending Unavailable Allergies Allergy Classification Reported Allergen(s) Allergy Type Date of Onset Reaction(s) Facility (2 sources) Coconut extract; Translations: [COCONUT] Drug Allergy 4 [facility] Repository (1 source) Misc-Food; Translations: [Misc-Food] Food allergy (disorder) 4 [facility] Repository (1 source) amLODIPine; Translations: [AMLODIPINE] Drug Allergy 4 [facility] Repository (1 source) Onion extract; Translations: [ONION] Drug Allergy 2 [facility] Repository (1 source) No Known Medication Allergies; Translations: [No Known Medication Allergies] Propensity to adverse reactions (disorder) [facility] Repository Medications Current Medications Medication Drug Class(es) [...] 06-03-2022 Episodic Other aftercare (1 source) 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 Normal [facility] Consent for Procedure/Surger yon 03-11-2024 Consent for Procedure/Surge ry [id number]#[id number] [facility] Facesheeton 03-11-2024 Facesheet [id number]#[id number] [facility] Ambulatory Visit Summaryon 0 03-10-2024 Ambulatory [...] choosing us for your care. Normal [facility] RAD - Ultrasound Reporton RAD - Ultrasound Report [id number] Normal [facility] Physician Referralon 024 Physician Referral [id number]#[id number] Normal [facility] Office Visiton 10-17-2023 Follow-up visit [id number] Sam Cunningham 1955 F Date Provider Department Center 10/17/2023 HAY POE [facility] Family History Problem Relation Age of Onset Anemia Mother Breast cancer Mother Diabetes Mother Hypertension Mother Hyperlipidemia Mother Coronary artery disease Father Diabetes Father Hypertension Father Hyperlipidemia Father Stroke Paternal Grandmother Coronary artery disease Paternal Grandmother Family Status - Relation Status Age at Mother Father Paternal Grandmother Level of Service:97202 ND OFFICE/OUTPATIENT ESTABLISHED MOD MDM 30 MIN Normal [facility] Office Visiton 03-25-2023 Follow-up visit [id number] Sam Cunningham 1955 Date Provider Department Center 03/25/2023 DANIEL YUNG [facility] Family History Problem Relation Age of Onset Anemia Mother Breast cancer Mother Diabetes Mother Hypertension Mother Hyperlipidemia Mother Coronary artery disease Father Diabetes Father Hypertension Father Hyperlipidemia Father Stroke Paternal Grandmother Coronary artery disease Paternal Grandmother Family Status - Relation Status Age at Mother Father Paternal Grandmother Level of Service:75170 ND OFFICE/OUTPATIENT ESTABLISHED MOD MDM 30-39 MIN Reason for Visit and Comments: Follow-up [185160] Normal [facility] ACTH, PLASMAon 10-30-2022 ACTH, Plasma 16.7 pg/mL Normal 7.2-63.3 [facility] Comment on above: Result Comment: ACTH reference interval for samples collected between 7 and 10 AM. Performed By: #### U [facility] #### [facility] [address] [place] [address] Dr. Annie Rain CORTISOLon 10-30-2022 Cortisol 4.7 ug/dL Normal [facility] Comment on above: Result Comment: Cortisol AM 6.2 - 19.4 Cortisol PM 2.3 - 11.9 Performed By: #### C ORTISO #### [facility] [address] [place] [address] Dr. Annie Rain FSHon 10-30-2022 FSH 57.8 mIU/mL Normal [facility] Comment on above: Result Comment: Adult Female: Follicular phase 3.5 - 12.5 Ovulation phase 4.7 - 21.5 Luteal phase 1.7 - 7.7 Postmenopausal 25.8 - 134.8 Performed By: #### L BCFSH #### [facility] [address] [place] [address] Dr. Annie Rain GROWTH HORMONEon 10-30-2022 Growth Hormone, Serum 1.5 ng/mL Normal 0.0-10.0 [facility] Comment on above: Performed By: #### UAMIC #### [facility] [address] [place] [address] Dr. Annie Rain CVLCFNW-WGTE-GIFFNT-FACTOR 1 on 10-30-2022 Insulin-Like Growth Factor I 94 ng/mL Normal 57-202 [facility] Comment on above: Performed By: #### INSGF1 #### [facility] [address] [place] [address] Dr. Annie Rain LUTEINIZING HORMONE (LH)on 0 10-30-2022 LH 22.1 mIU/mL Normal [facility] Comment on above: Result Comment: Adult Female: Follicular phase 2.4 - 12.6 Ovulation phase 14.0 - 95.6 Luteal phase 1.0 - 11.4 Postmenopausal 7.7 - 58.5 Performed By: #### L BCLH #### [facility] [address] [place] [address] Dr. Annie Rain PROLACTINon 10-30-2022 Prolactin 6.4 ng/mL Normal 4.8-23.3 [facility] Comment on above: Performed By: #### PROLAC #### [facility] [address] [place] [address] Dr. Annie Rain FREE T4on 10-29-2022 Free T4 [Mass/Vol] 1.01 ng/dL Normal 0.76-1.46 [facility] Comment on above: Performed By: #### FT4 #### [facility] [address] [place] [address] [address] Annie Rain PROF CHEM 8 (BAS METB)on Anion gap [Moles/Vol] 11.4 mmol/L Normal [facility] Comment on above: Performed By: #### UAMIC #### [facility] [address] [place] [address] Dr. Annie Rain Calcium [Mass/Vol] 9.4 mg/dL Normal 8.5-10.1 [facility] Comment on above: Performed By: #### UAMIC #### [facility] [address] [address] [address] Annie Rain Chloride [Moles/Vol] 105 mmol/L Normal 98-107 [facility] Comment on above: Performed By: #### UAMIC #### [facility] [address] [place] [address] Dr. Annie Rain CO2 [Moles/Vol] 29.6 mmol/L Normal 21.0-32.0 [facility] Comment on above: Performed By: #### UAMIC #### [facility] [address] [place] [address] Dr. Annie Rain Creatinine [Mass/Vol] 0.55 mg/dL Normal 0.55-1.02 [facility] Comment on above: Performed By: #### UAMIC #### [facility] [address] [place] [address] Dr. Annie Rain EGFR-AF NORTHER[place] IRISH >60 Normal >=60 [facility] Comment on above: Performed By: #### UAMIC #### [facility] [address] [place] [address] Dr. Annie Rain EGFR-NON AF [place]THER[place] >60 Normal >=60 [facility] Comment on above: Performed By: #### UAMIC #### [facility] [address] [place] [address] Dr. Annie Rain Glucose [Mass/Vol] 80 mg/dL Normal 74-106 [facility] Comment on above: Performed By: #### UAMIC #### [facility] [address] [address] [address] Annie Rain Potassium [Moles/Vol] 4.0 mmol/L Normal 3.5-5.1 [facility] Comment on above: Performed By: #### UAMIC #### [facility] [address] [place] [address] Dr. Annie Rain Sodium [Moles/Vol] 142 mmol/L Normal 136-145 [facility] Comment on above: Performed By: #### UAMIC #### [facility] [address] [address] [address] Annie Rain Urea nitrogen [Mass/Vol] 8.0 mg/dL Normal 7.0-18.0 [facility] Comment on above: Performed By: #### UAMIC #### [facility] [address] [place] [address] Dr. Annie Rain Urea nitrogen/Creati nine [Mass ratio] 14.5 mg/mg Normal [facility] Comment on above: Performed By: #### UAMIC #### [facility] [address] [place] [address] Dr. Annie Rain TSHon 10-29-2022 TSH 0.404 uIU/mL Normal 0.358-3.740 [facility] Comment on above: Performed By: #### UAMIC #### [facility] [address] [place] [address] Dr. Annie Rain XR LSPINE MIN 4 [...] YENI RUST Date: 2022-08-27 07:31 Normal [facility] MRI BRAIN WO W CONon 022 [...] by: BARRY HO Date: 2022-08-15 22:51 Normal [facility] CREATININEon 08-15-2022 Creatinine [Mass/Vol] 0.62 mg/dL Normal 0.55-1.02 [facility] Comment on above: Performed By: #### CREA #### [facility] [address] [place] [address] Dr. Annie Rain EGFR-AF [place]THER[place]ISH >60 Normal >=60 [facility] Comment on above: Performed By: #### CREA #### [facility] [address] [place] [address] Dr. Annie Rain EGFR-NON AF [place]THER[place] >60 Normal >=60 [facility] Comment on above: Performed By: #### CREA #### [facility] [address] [place] [address] ABD/PELVIS WO CONon [...] by: YENI RUST Date: 2022-06-25 13:49 Normal [facility] CT HEAD WO CONon [...] PABLO MILLER Date: 2022-06-25 13:56 Normal [facility] CULTURE URINEon 06-20-2022 CULTURE URINE Culture Observations : LIGHT GROWTH OF MIXED GENITAL SILAS. NO POTENTIAL PATHOGENS SEEN. Normal [facility] Comment on above: Performed By: #### INSGF1 #### [facility] [address] [place] [address] Dr. Annie Rain UA RANDOM W/MICROSCOPICon BACTERIA NONE SEEN Normal NONE SEEN [facility] Comment on above: Performed By: #### UAMIC #### [facility] [address] [place] [address] Dr. Annie Rain Bilirubin Ql (U) Negative Normal NEGATIVE [facility] Comment on above: Performed By: #### UAMIC #### [facility] [address] [place] [address] Dr. Annie Rain CAST NONE SEEN Normal NONE SEEN [facility] Comment on above: Performed By: #### UAMIC #### [facility] [address] [place] [address] Dr. Annie Rain Clarity (U) CLEAR Normal CLEAR [facility] Comment on above: Performed By: #### UAMIC #### [facility] [address] [place] [address] Dr. Annie Rain Color (U) YELLOW Normal YELLOW [facility] Comment on above: Performed By: #### UAMIC #### [facility] [address] [place] [address] Dr. Annie Rain Crystals LM Nom (Urine sed) NONE SEEN Normal NONE SEEN [facility] Comment on above: Performed By: #### UAMIC #### [facility] [address] [place] [address] Dr. Annie Rain Epithelial cells LM Ql (Urine sed) RARE Normal NONE SEEN /RARE [facility] Comment on above: Performed By: #### UAMIC #### [facility] [address] [place] [address] Dr. Annie Rain Glucose Ql (U) Negative Normal NEGATIVE [facility] Comment on above: Performed By: #### UAMIC #### [facility] [address] [place] [address] Dr. Annie Rain Hemoglobin Ql (U) SMALL Abnormal NEGATIVE [facility] Comment on above: Performed By: #### UAMIC #### [facility] [address] [place] [address] Dr. Annie Rain Ketones Ql (U) TRACE Abnormal NEGATIVE [facility] Comment on above: Performed By: #### UAMIC #### [facility] [address] [place] [address] Dr. Annie Rain LEUKOCYTES Negative Normal NEGATIVE [facility] Comment on above: Performed By: #### UAMIC #### [facility] [address] [place] [address] Dr. Annie Rain MUCOUS NONE SEEN Normal NONE SEEN [facility] Comment on above: Performed By: #### UAMIC #### [facility] [address] [place] [address] Dr. Annie Rain Nitrite Ql (U) Negative Normal NEGATIVE [facility] Comment on above: Performed By: #### UAMIC #### [facility] [address] [place] [address] Dr. Annie Rain pH (U) 6.5 [pH] Normal 5-9 [facility] Comment on above: Performed By: #### UAMIC #### [facility] [address] [place] [address] Dr. Annie Rain RBC 2-5 Abnormal 0-2 [facility] Comment on above: Performed By: #### UAMIC #### [facility] [address] [place] [address] Dr. Annie Rain SPEC GRAVITY 1.020 Normal 1.005-<=1.02 5 [facility] Comment on above: Performed By: #### UAMIC #### [facility] [address] [place] [address] Dr. Annie Rain UA PROTEIN Negative Normal NEGATIVE/ TRACE [facility] Comment on above: Performed By: #### UAMIC #### [facility] [address] [address] [address] Annie Rain Urobilinogen Qn (U) 1.0 {Willam'U}/dL Normal 0.2 - 1.0 [facility] Comment on above: Performed By: #### UAMIC #### [facility] [address] [address] [address] Annie Rain WBC 0-2 Abnormal NONE SEEN [facility] Comment on above: Performed By: #### UAMIC #### [facility] [address] [address] [address] CHEST WO CONon [...] by: YENI Oliva: 2022-06-08 13:10 Normal [facility] CULTURE URINEon 05-30-2022 CULTURE URINE Culture Observations : NO GROWTH. Normal [facility] Comment on above: Performed By: #### INSGF1 #### [facility] [address] [place] [address] Dr. Annie Rain UA RANDOM W/MICROSCOPICon BACTERIA TRACE Abnormal NONE SEEN [facility] Comment on above: Performed By: #### UAMIC #### [facility] [address] [place] [address] Dr. Annie Rain Bilirubin Ql (U) Negative Normal NEGATIVE [facility] Comment on above: Performed By: #### UAMIC #### [facility] [address] [place] [address] Dr. Annie Rain CAST NONE SEEN Normal NONE SEEN [facility] Comment on above: Performed By: #### UAMIC #### [facility] [address] [place] [address] Dr. Annie Rain Clarity (U) CLEAR Normal CLEAR [facility] Comment on above: Performed By: #### UAMIC #### [facility] [address] [place] [address] Dr. Annie Rain Color (U) LT. YELLOW Normal YELLOW [facility] Comment on above: Performed By: #### UAMIC #### [facility] [address] [place] [address] Dr. Annie Rain Crystals LM Nom (Urine sed) NONE SEEN Normal NONE SEEN [facility] Comment on above: Performed By: #### UAMIC #### [facility] [address] [place] [address] Dr. Annie Rain Epithelial cells LM Ql (Urine sed) RARE Normal NONE SEEN /RARE [facility] Comment on above: Performed By: #### UAMIC #### [facility] [address] [place] [address] Dr. Annie Rain Glucose Ql (U) Negative Normal NEGATIVE [facility] Comment on above: Performed By: #### UAMIC #### [facility] [address] [place] [address] Dr. Annie Rain Hemoglobin Ql (U) Negative Normal NEGATIVE [facility] Comment on above: Performed By: #### UAMIC #### [facility] [address] [place] [address] Dr. Annie Rain Ketones Ql (U) Negative Normal NEGATIVE [facility] Comment on above: Performed By: #### UAMIC #### [facility] [address] [place] [address] Dr. Annie Rain LEUKOCYTES Negative Normal NEGATIVE [facility] Comment on above: Performed By: #### UAMIC #### [facility] [address] [place] [address] Dr. Annie Rain MUCOUS NONE SEEN Normal NONE SEEN [facility] Comment on above: Performed By: #### UAMIC #### [facility] [address] [place] [address] Dr. Annie Rain Nitrite Ql (U) Negative Normal NEGATIVE [facility] Comment on above: Performed By: #### UAMIC #### [facility] [address] [place] [address] Dr. Annie Rain pH (U) 6.0 [pH] Normal 5-9 [facility] Comment on above: Performed By: #### UAMIC #### [facility] [address] [place] [address] Dr. Annie Rain RBC 0-2 Normal 0-2 [facility] Comment on above: Performed By: #### UAMIC #### [facility] [address] [place] [address] Dr. Annie Rain SPEC GRAVITY <=1.005 Abnormal 1.005-<=1.02 5 [facility] Comment on above: Performed By: #### UAMIC #### [facility] [address] [place] [address] Dr. Annie Rain UA PROTEIN Negative Normal NEGATIVE/ TRACE [facility] Comment on above: Performed By: #### UAMIC #### [facility] [address] [place] [address] Dr. Annie Rain Urobilinogen Qn (U) 0.2 {Willam'U}/dL Normal 0.2 - 1.0 [facility] Comment on above: Performed By: #### UAMIC #### [facility] [address] [address] [address] Annie Rain WBC 0-2 Abnormal NONE SEEN [facility] Comment on above: Performed By: #### UAMIC #### [facility] [address] [place], [place] [address] Dr. Annie Rain Covid-19 PCR ([facility])on 03-16 SARS-CoV-2 (COVID-19) RNA GREGOR+probe Ql (Unsp spec) Detected Critically abnormal NOT DETECTED [facility] Comment on above: Result Comment: This test is not yet jose roved or cleared by the [place] FDA. When there are no FDA-approved or cleared tests available, and other criteria are met, FDA can make tests available under an emergency access mechanism called an Emergency Use Authorization (EUA). The EUA for this test is supported by the [place] of Health and Human Service's declaration that [...] used). Performed By: #### I NSGF1 #### [facility] [address] [place] [address] [address] [address] Annie Rain MRI BRAIN WO W [...] prior studies available for comparison. Normal [facility] BUNon 02-05-2022 Urea nitrogen [Mass/Vol] 13.0 mg/dL Normal 7.0-18.0 [facility] Comment on above: Performed By: #### CREA, BUN #### [facility] [address] [place] [address] Dr. Annie Rain CREATININEon 02-05-2022 Creatinine [Mass/Vol] 0.70 mg/dL Normal 0.55-1.02 [facility] Comment on above: Performed By: #### INSGF1 #### [facility] [address] [place] [address] Dr. Annie Rain EGFR-AF [place]THER[place] >60 Normal >=60 [facility] Comment on above: Performed By: #### INSGF1 #### [facility] [address] [place] [address] Dr. Annie Rain EGFR-NON AF [place] >60 Normal >=60 [facility] Comment on above: Performed By: #### INSGF1 #### [facility] [address] [place] [address] Dr. Annie Rain XR pelvis 1-2Von 09-14-2021 XR pelvis 1-2V [facility] Main [place] [address] [place] [address] XRay Report Signed Patient: Sherie Cunningham MR#: [id number] : 1955 Acct:[id number] Age/Sex: 66 / F ADM Date: 09/14/21 Loc: ICXD Room: [facility] Attending Dr: Nichelle Bailey II, MD Ordering Provider: Nichelle Bailey MD Date of Service: 09/14/21 XR/XR knee RT 4V*: M25.561 ([id number]) XR/XR pelvis 1-2V: M25.561 Copies to: Nichelle [...] Cedric Caal M.D.09/14/2021 11:59 AM Dictation Location: [place] [address] Transcribed By: [facility] 09/14/21 1159 Dictated By: Cedric Caal DO 09/14/21 1118 Signed By: 09/14/21 1159 Normal [facility] MR head/brain wo/w conon MR head/brain wo/w con [facility] Main [address] [address] MRI Report Signed Patient: Sherie Cunningham MR#: [id number] : 1955 Acct:[id number] Age/Sex: 65 / F ADM Date: 11/07/20 Loc: MR Room: Type: [facility] Attending Dr: Barry Woodson MD Ordering [...] Remberto Coulter M.D.11/08/2020 11:48 AM Dictation Location: [facility] Transcribed By: [facility] 11/08/20 1148 Dictated By: Remberto Coulter II, MD 11/08/20 1135 Signed By: 11/08/20 1148 Normal [facility] ISTAT XRay CREon 11-07-2020 Creatinine [Mass/Vol] 0.6 mg/dL Normal 0.6-1.3 [facility] Comment on above: Result Comment: ER/ESD physician is noti fied/shown all ISTAT results. Critical values may be confirmed by laboratory testing if deemed necessary by ER attending doctor. Performed By: #### I SCRE #### [address] Point of Care testing , ISTAT GFR ( > 60 Normal [facility] Comment on above: Result Comment: GFR estimated reference range: According to KDOQI guidelines, <60 ml/min/1.73m2 is sufficient to diagnose a patient with chronic kidney disease. PERFORMED BY: [place] [address] PATHOLOGIST SUPPORT GROUP MANAGER MARK SERRATO M.D. Performed By: #### I SCRE #### [facility] [address] [place] [address] Point of Care testing , ISTAT GFR (Non- Am > 60 [facility] Comment on above: Performed By: #### ISCRE #### [address] Point of Care testing , Vital Signs Date Time Vital Sign Value Performing Clinician Facility 03-10-2024 14:14-0400 Blood Pressure Location Pablo VALENCIA [facility] 03-10-2024 14:14-0400 Diastolic blood pressure 78 mm[Hg] Pablo VALENCIA [facility] 03-10-2024 14:14-0400 Heart rate 72 /min Pablo VALENCIA [facility] 03-10-2024 14:14-0400 Respiratory rate 16 /min Pablo AVLENCIA [facility] 03-10-2024 14:14-0400 Systolic blood pressure 136 mm[Hg] Pablo VALENCIA [facility] 04-19-2022 12:15-0400 Body height 162.56 cm Nichelle Woodbury II Other [facility] Other 04-19-2022 12:15-0400 Body mass index (BMI) [Ratio] 27.46 kg/m2 Nichelle Woodbury II Other [facility] Other 04-19-2022 12:15-0400 Body weight 72.58 kg Nichelle Lynn II Other [facility] Other 01-18-2022 10:15-0400 Body height 162.56 cm Nichelle Woodbury II Other [facility] Other 01-18-2022 10:15-0400 Body mass index (BMI) [Ratio] 27.98 kg/m2 Nichelle Woodbury II Other [facility] Other 01-18-2022 10:15-0400 Body weight 73.94 kg Nichelle Woodbury II Other [facility] Other 01-03-2022 12:45-0400 Body height 162.56 cm Nichelle Woodbury II Other [facility] Other 01-03-2022 12:45-0400 Body mass index (BMI) [Ratio] 27.98 kg/m2 Nichelle Woodbury II Other [facility] Other 01-03-2022 12:45-0400 Body weight 73.94 kg Nichelle Woodbury II Other [facility] Other 09-14-2021 10:00-0500 Body height 162.56 cm Nichelle Bailey II Other [facility] Other 09-14-2021 10:00-0500 Body mass index (BMI) [Ratio] 27.63 kg/m2 Nichelle Bailey II Other [facility] Other 09-14-2021 10:00-0500 Body weight 73.03 kg Nichelle Bailey II Other [facility] Other Encounters Encounter Date Encounter Type Care Provider Facility Start: 04-22-2024 End: 04-22-2024 ambulatory Pablo VALENCIA Facility:CD:[id number] Start: 03-10-2024 End: 03-10-2024 ambulatory Greg Aleman Facility: [facility] Start: 03-10-2024 End: 03-10-2024 Patient encounter procedure Pablo VALENCIA [facility] Start: 10-17-2023 End: 10-17-2023 ambulatory HAY BLAS [facility] Start: 03-25-2023 End: [facility]: [facility]22 End: 10-30-2022 ambulatory JOSSIE [...] ALEMAN Facility:[facility]1 Start: 04-19-2022 End: 04-19-2022 ambulatory Nihcelle Woodbury II Other [facility] Start: 04-19-2022 Office outpatient visit 25 minutes Nichelle Lynn II [facility] Start: 04-03-2022 End: 04-03-[address] GREG ALEMAN Facility:[facility] Start: 02-05-2022 End: 02-06-2022 ambulatory AUDELIA UNGER Facility:[facility] Start: 01-29-2022 End: 03-05-2022 ambulatory NICHELLE LYNN Facility:[facility] Start: 01-18-2022 End: 01-18-2022 ambulatory Nichelle Woodbury II Other [facility] Start: 01-18-2022 Office outpatient visit 25 minutes Nichelle Woodbury II [facility] Start: 01-03-2022 End: 01-03-2022 ambulatory Nichelle Woodbury II Other [facility] Start: 01-03-2022 Office outpatient visit 15 minutes Nichelle Woodbury II [facility] Start: 09-14-2021 End: 09-14-2021 ambulatory Nichelle Woodbury II Other [facility] Start: 09-14-2021 Office outpatient ne w [...] influenza virus vaccine, unspecified formulation Pablo ABRAHAMTere [facility] Comment on above: Result Comment: Will consult with primary care physician Payers Date Payer Category Payer Medicaid [id number] 2. [id number] 1957 Medicare [id number] 2.1 [id number] 1957 Unknown [id number] 2.1 [id number] 1957 Unknown [id number] 2.16.84 0.1.326452.3.579.2.593 1957 Unknown [id number] 2.16.84 0.1.459326.3.579.2.593 1957 Unknown [id number] 2.16.84 0.1.354430.3.579.2.593 1957 Unknown [id number] 2.16.84 0.1.860229.3.579.2.593 1957 Unknown [id number] 2.16.84 0.1.143489.3.579.2.593 1957 Unknown [id number] 2.16.84 0.1.266516.3.579.2.593 1957 Unknown [id number] 2.16.84 0.1.879139.3.579.2.593 1957 Unknown [id number] 2.16.84 0.1.513369.3.579.2.593 1957 Unknown [id number] 2.16.84 0.1.409125.3.579.2.593 1957 Unknown [id number] 2.16.84 0.1.839170.3.579.2.593 1957 Unknown [id number] 2.16.84 0.1.612557.3.579.2.593 1957 Unknown [id number] 2.16.8 40.1.623010.3.579.2.727 1957 Unknown [id number] 2.16.8 40.1.884360.3.579.2.727 Social History Date Type Detail Facility Sex Assigned At [facility] Start: 03-10-2024 Tobacco smoking status Ex-smoker (fi nding) [facility] Tobacco smoking status Never [facility] Functional Status Date Assessment Result Facility 03-10-2024 Functional Status N/A [facility] Clinical Notes 09-14-2021 to 03-13-2024 Note [...] not included)... [facility] Comment on above: Result Comment: Elec tronically Signed By: ERIK SMALLWOOD, Pablo Workman\Date and Time Signed: 03/13/24 10:51 EDT 10-17-2023 Note Lipids elevated and pt prefers to start with diet and lifestyle modifications Will repeat lipid level in 3 months to re-evaluate [facility] 10-17-2023 Note Hypertension is elev ated in office, she is adamant that b/p is well controlled at home. Staff to call pt in 1-2 weeks to review b/p log. Continue lisinopril 5 mg daily- she reports a dry cough but states this is r/t her lung disease- we discussed side effect of lisinopril can be cough and she voiced understanding. [facility] 10-17-2023 Note Stable continue all medications [facility] 10-17-2023 Note [facility] CARDIOLOGY PROGR ESS [...] wall motion abnor (more content not included)... [facility] 10-17-2023 Note Patient here for 6 [...] All other systems reviewed and are negative. [facility] 03-25-[address] Cardiology - [facility] Subjective Sherie Cunningham is a [...] right sided pressu (more content not included)... [facility] 06-25-2022 Note PROCEDURE: CT CSPINE WO [...] authenticated by: YENI RUST Date: 2022-06-25 13:55 [facility] 06-25-2022 Note PROCEDURE: XR HAND [...] authenticated by: BARRY HO Date: 2022-06-25 13:49 [facility] 04-19-2022 Evaluation note Encounter Date [...] we will get a lumbar spine x-ray. [facility] 05-05-2022 Evaluation note* Encounter Date Diagnosis [...] a viscosupplementation. 6. Follow up 3 months [facility] 04-20-2022 Evaluation note* Encounter Date Diagnosis [...] knee compared to a partial knee replacement. [facility] 12-30-2021 Evaluation note* Encounter Date Diagnosis [...] this well. 5. Follow up 3 months [facility] Evaluation + Plan note No data available for this section [facility] History general Narrative - Reported* Type Description Date Medical History COPD Medical History emphysema Medical History migraine headache Medical History Panic attacks Surgical History thyroidectomy-partial Surgical History hysterectomy Surgical History oophorectomy Surgical History eye surgery Hospitalization History pneumonia Hospitalization History chest pain 04/2021 [facility] Discharge instructions No data available for this section [facility] Progress note No data available for this section [facility] 2heuresavant Summary Purpose Family History No Family History [...] section and content) DATE CREATED AUTHOR 11/12/2020 [facility] DATE CREATED AUTHOR AUTHOR'S ORGANIZ ATION 12/04/2021 [facility] DATE CREATED AUTHOR AUTHOR'S ORGANIZ ATION 11/03/2022 [facility] DATE CREATED AUTHOR AUTHOR'S ORGANIZ ATION 10/18/2023 [facility] DATE CREATED AUTHOR AUTHOR'S ORGANIZ ATION 05/01/2024 [facility] REASON FOR VISIT (unrecogniz ed section and content) Right Knee PainRECHECK RT KN EERecheck Right KneeRecheck Right knee Patient Care team informatio n (unrecognized section and content) Personnel Name: Greg Aleman MD Address: Address: [address] [place] [address] FOR RECORDS PERTAINING TO PATIENTS WHO ARE [...] BE BASED ON THE PRIMARY CLINICAL RECORDS. [facility] [employer] [facility]. provides no warranty or guarantee of the accuracy or completeness of information in this document.
[2024-05-07 11:40] LABS: Anion Gap 13.2; BUN Creatinine Ratio 15.4; Calcium 9.2 mg/dL (8.5-10.1); Carbon Dioxide 26.6 mmol/L (21.0-32.0); Chloride 105 mmol/L (98-107); Estimated GFR (African America >60 (>=60); Estimated GFR (Non-African Ame >60 (>=60); Glucose 89 mg/dL (74-106); Potassium 3.8 mmol/L (3.5-5.1); Sodium 141 mmol/L (136-145); Thyroid Stimulating Hormone 0.238 uIU/mL (0.358-3.740)
[2024-05-08 04:08] LABS: FSH 55.5 mIU/mL (25.8-134.8); Luteinizing Hormone(LH) 17.6 mIU/mL (7.7-58.5); Prolactin 5.2 ng/mL (3.6-25.2)
[2024-05-08 15:10] LABS: ACTH, Plasma 31.8 pg/mL (7.2-63.3)
== END 2024-05-07 10:17 | disposition home or self-care (01) ==
LOC: LAB 10:17
PROVIDERS: PCP Family Medicine; Visit Provider Internal Medicine
DX: E78.2 Mixed hyperlipidemia (principal); D44.3 Neoplasm of uncertain behavior of pituitary gland
CPT/HCPCS: 36415; 80048; 80061; 82024; 82533; 83001; 83002; 84146; 84305; 84439; 84443

== ENCOUNTER 2024-11-27 12:59 | Outpatient (OUT) | payer MEDICARE, MEDICAID, SELFPAY ==
--- OUTSIDE RECORDS SUMMARY | 2024-11-27 13:11 | XMS_ITS | CCD ---
Author Organization [facility] Care Team Providers Care Room Manager Name Role Phone Nichelle Bailey II Unavailable [phone] RON CURTIS Attending Unavailable NICHOLAS, DR GARZA Primary Care Unavailable RON CURTIS Admitting Unavailable BARRERA, DR YENI Sunshine Consulting Unavailable GEORGIA, DR BARRY Shepherd Consulting Unavailable RON CURTIS Consulting Unavailable PABLO MILLER Consulting Unavailable NICHOLAS, DR GARZA Admitting Unavailable JINY, DR GARZA Attending Unavailable JINY, DR GARZA Primary Care Unavailable HOY, DR GARZA Consulting Unavailable JINY, DR GARZA Admitting Unavailable HOY, DR GARZA Attending Unavailable HOY, DR GARZA Primary Care Unavailable HOY, DR GARZA Consulting Unavailable JINY, DR GARZA Admitting Unavailable NICHOLAS, DR GARZA Attending Unavailable NICHOLAS, DR GARZA Primary Care Unavailable NICHOLAS, DR GARZA Consulting Unavailable BARRERA, DR YENI Sunshine Consulting Unavailable JINY, DR GARZA Primary Care Unavailable NICHOLAS, DR GARZA Admitting Unavailable NICHOLAS, DR GARZA Attending Unavailable HOY, DR GARZA Consulting Unavailable NICHOLAS, DR GARZA Primary Care Unavailable NICHOLAS, DR GARZA Attending Unavailable NICHOLAS, DR GARZA Admitting Unavailable UTEAUDELIA Attending Unavailable VIKI BALL Consulting Unavailable UTEAUDELIA Admitting Unavailable NICHOLAS, DR GARZA Primary Care Unavailable UTEAUDELIA Consulting Unavailable NICHOLAS, DR GARZA Admitting Unavailable [...] Unavailable DR GREG ALEMAN Primary Care Unavailable Greg Aleman Primary Care Physician Greg Aleman Referring Unavailable Pablo VALENCIA Attending Unavailable Pablo VALENCIA Attending Unavailable DANIEL RIBEIRO Attending Unavailable HAY BLAS Attending Unavailable AUDELIA SCHMID Attending Unavailable Unavailable Primary Care Provider Unavailabl e Allergies Allergy Classification Reported Allergen(s) Allergy Type Date of Onset Reaction(s) Facility (2 sources) Coconut extract; Translations: [COCONUT] Drug Allergy 4 [facility] Repository (1 source) Misc-Food; Translations: [Misc-Food] Food allergy (disorder) 4 [facility] Repository (1 source) No Known Medication Allergies; Translations: [No Known Medication Allergies] Propensity to adverse reactions (disorder) [facility] Repository (1 source) amLODIPine; Translations: [AMLODIPINE] Drug Allergy 4 [facility] Repository (4 sources) Onion extract; Translations: [ONION] Drug Allergy 2 [facility] Repository (3 sources) Coconut extract Drug Allergy 4 [facility] Healthcare Medications Current Medications Medication Drug Class(es) Dates Sig (Normalized) Sig (Original) [id number] 200 actuat albuterol 0.09 mg/actuat metered dose inhaler (3 sources) beta2-Adrenergic Agonist take 1 puff(s) by inhalation every eight hours albuterol HFA 90 mcg/act inhaler Inhale 1 puff every 8 (eight) hours Active aspirin 81 mg oral tablet (4 sources) Platelet Aggregation Inhibitor, Nonsteroidal Anti-inflammatory Drug Start: 05-28-2019 take 1 tablet by mouth once daily aspirin 81 mg oral tablet 81 mg = 1 tab(s), Oral, Daily Start Date: 05/28/19 Status: Ordered cholecalciferol 0.05 mg oral capsule (3 sources) Vitamin D take 1 capsule by mouth once daily cholecalciferol (Vitamin D-3) 50 MCG (2000 UT) capsule Take 2,000 Units by mouth Daily Active diclofenac sodium 0.01 mg/mg topical gel (3 sources) Nonsteroidal Anti-inflammatory Drug Start: 01-03-2022 Voltaren 1 % as directed Externally every 4 hours for 30 days Dec, Active 1 ml erenumab-aooe 70 mg/ml auto-injector (6 sources) Start: 05-21-2024 inject 1 mL by subcutaneous injection once erenumab (Aimovig) 70 MG/ML injection Indications: Migraine without aura and without status migrainosus, not intractable (CMS/HCC) Inject 1 mL (70 mg) under the skin every 28 (twenty-eight) days 1 mL 2 05/21/2024 Active Aimovig 70 MG/ML as directed Subcutaneous Active famotidine 40 mg oral tablet (1 source) Histamine-2 Receptor Antagonist Start: 02-12-2024 take 1 tablet by mouth twice daily famotidine 40 mg Tab 40 mg = 1 tab(s), Oral, BID, Refills(s) 0 Start Date: 02/12/24 Status: Ordered hyoscyamine sulfate 0.125 mg sublingual tablet (3 sources) take 1 tablet by mouth every four hours as needed hyoscyamine (Levsin) 0.125 MG SL tablet Take 0.125 mg by mouth every 4 (four) hours if needed Active 24 hr isosorbide mononitrate 30 mg [...] day Active lisinopril 5 mg oral tablet (7 sources) Angiotensin Converting Enzyme Inhibitor Start: 04-01-2024 take 1 tablet by mouth once daily lisinopril 5 MG tablet Take 1 tablet by mouth Daily 04/01/2024 Active Start: 03-10-2024 take 1 tablet by janiya th once daily lisinopril 5 mg Tab 5 mg = 1 tab(s), Oral, Daily, Refills(s) 0 Start Date: 03/10/24 Status: Ordered take 1 tablet by janiya th every twenty-four hours Lisinopril 5 MG 1 tablet Orally Once a day Active meclizine hydrochloride 25 mg oral tablet (7 sources) Antiemetic take 1 tablet by janiya th three times daily as needed for dizziness meclizine (Antivert) 25 MG tablet Take 25 mg by mouth 3 (three) times a day as needed for dizziness Active take 1 tablet by janiya th every twenty-four hours Meclizine HCl 25 MG 1 tablet as needed Orally Once a day Active melatonin 5 mg oral tablet (1 source) Start: 03-10-2024 take 1 tablet by mouth once daily at bedtime as needed melatonin 5 mg oral tablet 5 mg = 1 tab(s), Oral, Once a day (at bedtime), PRN for insomnia, Refills(s) 0 Start Date: 03/10/24 Status: Ordered meloxicam 7.5 mg oral tablet (1 source) Nonsteroidal Anti-inflammatory Drug Start: 09-14-2021 take 1 tablet by mouth every twenty-four hours Meloxicam 7.5 MG 1 tablet Orally Once a day for 30 day(s) Aug, Active metoprolol tartrate 25 mg oral tablet (1 source) beta-Adrenergic Kenia Metoprolol Tartrate 25 MG as directed Orally Active pantoprazole 40 mg delayed release oral tablet (3 sources) Proton Pump Inhibitor take 1 tablet by mouth before mealtime pantoprazole (ProtoNix) 40 MG EC tablet Take 40 mg by mouth in the morning. Take before meals. Active rimegepant 75 mg disintegrating oral tablet (1 source) Nurtec 75 MG 1 tablet on the tongue and allow to dissolve Orally Active Ventolin HFA 90 mcg/inh Aerosol (1 source) Start: 05-28-2019 take 2 puff(s) by inhalation four times [...] Chronic Disorders of lipid metabolism (3 sources) Dyslipidemia; Translations: [Mixed hyperlipidemia] Onset: 08-27-2022 02-12-2024 Chronic Esophageal disorders (2 sources) Gastroesophageal reflux disease 02-12-2024 Chronic Essential hypertension (3 sources) Hypertensive disorder; Translations: [Essential (primary) hypertension] Onset: 06-02-2018 02-12-2024 Chronic Gastritis and duodenitis (1 source) Gastritis 06-28-2019 Episodic Headache; including migraine (5 sources) Migraine; Translations: [Migraine, unspecified, not intractable, without status migrainosus] Onset: 04-15-2024 04-15-2024 Chronic Noninfectious gastroenteritis (1 source) Colitis 05-28-2019 Episodic [...] source) Primary fibromyalgia syndrome 06-15-2019 Episodic Other endocrine disorders (3 sources) Pituitary mass; 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] Onset: 04-15-2024 04-15-2024 Chronic Other nervous system disorders (1 source) Narcolepsy [...] Classification Problem Date Documented Da te Episodic/Chronic Conditions associated with dizziness or vertigo (5 sources) Dizziness; Translations: [Dizziness and giddiness] Onset: 04-15-2024 04-15-2024 Episodic E Codes: Fall (1 source) Unspecified fall, initial encounter; Translations: [UNSPECIFIED FALL INITIAL ENCOUNTER] Onset: 06-26-2022 Episodic Genitourinary symptoms and ill-defined conditions (2 sources) Dysuria; Translations: [Frequency of micturition] Onset: 06-03-2022 Episodic Neoplasms of unspecified nature or uncertain behavior (9 sources) 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; 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] Onset: 10-29-2022 Episodic Other aftercare (1 source) Other terminal operations supervisor (current) drug therapy; Translations: [OTH BAND SAW MARKER CURRENT DRUG THERAPY] Onset: 06-26-2022 Episodic Other [...] ABN FIND LNG FIELD] Onset: 06-08-2022 Episodic Residual codes; unclassified (5 sources) Memory impairment; Translations: [Other amnesia] Onset: 04-15-2024 04-15-2024 Episodic Screening and history of mental health [...] Value Interpretation Reference Range Facility Office Visiton 05-08-2024 Follow-up visit [id number] Sam Cunningham 1955 F Date Provider Department Center 05/08/2024 DANIEL YUNG [facility] Family History Problem Relation Age of Onset Anemia Mother Breast cancer Mother Diabetes Mother Hypertension Mother Hyperlipidemia Mother Coronary artery disease Father Diabetes Father Hypertension Father Hyperlipidemia Father Stroke Paternal Grandmother Coronary artery disease Paternal Grandmother Family Status - Relation Status Age at Mother Father Paternal Grandmother Level of Service:85093 SC OFFICE/OUTPATIENT ESTABLISHED MOD MDM 30 MIN Normal [facility] Reminderson 04-23-2024 Reminders Reminders From: So Finley LPN To: GSN - Clinical; Sent: 04/23/2024 14:41:29 EDT Show up: 03/22/2034 07:00:00 EDT Subject: colonoscopy recall Due Date/Time: 04/22/2034 07:00:00 EDT Reminder/Recall Patient due for screening colonoscopy 04/22/2034. [facility] Consent for Procedure/Surger yon 03-11-2024 Consent for Procedure/Surge ry [id number] [facility] Facesheeton 03-11-2024 Facesheet [id number] [facility] Ambulatory Visit Summaryon 0 03-10-2024 Ambulatory [...] for choosing us for your care. Normal [facility] RAD - Ultrasound Reporton RAD - Ultrasound Report [id number] Normal [facility] Physician Referralon 024 Physician Referral [id number] [facility] Office Visiton 10-17-2023 Follow-up visit [id number] Sam Cunningham 1955 F Date Provider Department Center 10/17/2023 HAY POE [facility] Family History Problem Relation Age of Onset Anemia Mother Breast cancer Mother Diabetes Mother Hypertension Mother Hyperlipidemia Mother Coronary artery disease Father Diabetes Father Hypertension Father Hyperlipidemia Father Stroke Paternal Grandmother Coronary artery disease Paternal Grandmother Family Status - Relation Status Age at Mother Father Paternal Grandmother Level of Service:91438 SC OFFICE/OUTPATIENT ESTABLISHED MOD MDM 30 MIN Normal [facility] ACTH, PLASMAon 10-30-2022 ACTH, Plasma 16.7 pg/mL Normal 7.2-63.3 [facility] Comment on above: Result Comment: ACTH reference interval for samples collected between 7 and 10 AM. Performed By: #### [facility] #### [facility] [address] [place] [address] Dr. Annie Rain CORTISOLon 10-30-2022 Cortisol 4.7 ug/dL Normal [facility] Comment on above: Result Comment: Cortisol AM 6.2 - 19.4 Cortisol PM 2.3 - 11.9 Performed By: #### C ORTISO #### [facility] [address] [place] [address] Dr. Annie Rain FSHon 10-30-2022 FSH 57.8 mIU/mL Normal [facility] Comment on above: Result Comment: Adult Female: Follicular phase 3.5 - 12.5 Ovulation phase 4.7 - 21.5 Luteal phase 1.7 - 7.7 Postmenopausal 25.8 - 134.8 Performed By: #### L BCFSH #### [facility] [address] [place] [address] Dr. Annie Rain GROWTH HORMONEon 10-30-2022 Growth Hormone, Serum 1.5 ng/mL Normal 0.0-10.0 [facility] Comment on above: Performed By: #### UAMIC #### [facility] [address] [place] [address] Dr. Annie Rain VPDZSWJ-FESJ-LJVLEO-FACTOR 1 on 10-30-2022 Insulin-Like Growth Factor I 94 ng/mL Normal 57-202 [facility] Comment on above: Performed By: #### INSGF1 #### [facility] [address] [place] [address] Dr. Annie Rain LUTEINIZING HORMONE (LH)on 0 10-30-2022 LH 22.1 mIU/mL Normal [facility] Comment on above: Result Comment: Adult Female: Follicular phase 2.4 - 12.6 Ovulation phase 14.0 - 95.6 Luteal phase 1.0 - 11.4 Postmenopausal 7.7 - 58.5 Performed By: #### L BCLH #### [facility] [address] [place] [address] Dr. Annie Rain PROLACTINon 10-30-2022 Prolactin 6.4 ng/mL Normal 4.8-23.3 [facility] Comment on above: Performed By: #### PROLAC #### [facility] [address] [place] [address] Dr. Annie Rain FREE T4on 10-29-2022 Free T4 [Mass/Vol] 1.01 ng/dL Normal 0.76-1.46 [facility] Comment on above: Performed By: #### FT4 #### [facility] [address] [address] [address] Annie Rain PROF CHEM 8 (BAS METB)on Anion gap [Moles/Vol] 11.4 mmol/L Normal [facility] Comment on above: Performed By: #### UAMIC #### [facility] [address] [address] [address] Annie Rain Calcium [Mass/Vol] 9.4 mg/dL Normal 8.5-10.1 [facility] Comment on above: Performed By: #### UAMIC #### [facility] [address] [place] [address] Dr. Annie Rain Chloride [Moles/Vol] 105 mmol/L Normal 98-107 [facility] Comment on above: Performed By: #### UAMIC #### [facility] [address] [address] [address] Annie Rain CO2 [Moles/Vol] 29.6 mmol/L Normal 21.0-32.0 [facility] Comment on above: Performed By: #### UAMIC #### [facility] [address] [place] [address] Dr. Annie Rain Creatinine [Mass/Vol] 0.55 mg/dL Normal 0.55-1.02 [facility] Comment on above: Performed By: #### UAMIC #### [facility] [address] [place] [address] Dr. Annie Rain EGFR-AF OMANI >60 Normal >=60 [facility] Comment on above: Performed By: #### UAMIC #### [facility] [address] [place] [address] Dr. Annie Rain EGFR-NON AF OMANI >60 Normal >=60 [facility] Comment on above: Performed By: #### UAMIC #### [facility] [address] [place] [address] Dr. Annie Rain Glucose [Mass/Vol] 80 mg/dL Normal 74-106 [facility] Comment on above: Performed By: #### UAMIC #### [facility] [address] [place] [address] Dr. Annie Rain Potassium [Moles/Vol] 4.0 mmol/L Normal 3.5-5.1 [facility] Comment on above: Performed By: #### UAMIC #### [facility] [address] [place] [address] Dr. Annie Rain Sodium [Moles/Vol] 142 mmol/L Normal 136-145 [facility] Comment on above: Performed By: #### UAMIC #### [facility] [address] [place] [address] Dr. Annie Rain Urea nitrogen [Mass/Vol] 8.0 mg/dL Normal 7.0-18.0 [facility] Comment on above: Performed By: #### UAMIC #### [facility] [address] [place] [address] Dr. Annie Rain Urea nitrogen/Creati nine [Mass ratio] 14.5 mg/mg Normal [facility] Comment on above: Performed By: #### UAMIC #### [facility] [address] [place] [address] Dr. Annie Rain TSHon 10-29-2022 TSH 0.404 uIU/mL Normal 0.358-3.740 [facility] Comment on above: Performed By: #### UAMIC #### [facility] [address] [place] [address] Dr. Annie Rain XR LSPINE MIN 4 [...] RUST Date: 2022-08-27 07:31 Normal [facility] MRI BRAIN WO W CONon 022 [...] HO Date: 2022-08-15 22:51 Normal [facility] CREATININEon 08-15-2022 Creatinine [Mass/Vol] 0.62 mg/dL Normal 0.55-1.02 [facility] Comment on above: Performed By: #### CREA #### [facility] [address] [address] [address] Annie Rain EGFR-AF OMANI >60 Normal >=60 [facility] Comment on above: Performed By: #### CREA #### [facility] [address] [address] [address] Annie Rain EGFR-NON AF OMANI >60 Normal >=60 [facility] Comment on above: Performed By: #### CREA #### [facility] [address] [place] [address] ABD/PELVIS WO CONon [...] by: YENI RUST Date: 2022-06-25 13:49 Normal [facility] CT HEAD WO CONon 06-25-2022 CT [...] MILLER Date: 2022-06-25 13:56 Normal [facility] CULTURE URINEon 06-20-2022 CULTURE URINE Culture Observations : LIGHT GROWTH OF MIXED GENITAL SILAS. NO POTENTIAL PATHOGENS SEEN. Normal [facility] Comment on above: Performed By: #### INSGF1 #### [facility] [address] [place] [address] Dr. Annie Rain UA RANDOM W/MICROSCOPICon BACTERIA NONE SEEN Normal NONE SEEN [facility] Comment on above: Performed By: #### UAMIC #### [facility] [address] [place] [address] Dr. Annie Rain Bilirubin Ql (U) Negative Normal NEGATIVE [facility] Comment on above: Performed By: #### UAMIC #### [facility] [address] [place] [address] Dr. Annie Rain CAST NONE SEEN Normal NONE SEEN [facility] Comment on above: Performed By: #### UAMIC #### [facility] [address] [place] [address] Dr. Annie Rain Clarity (U) CLEAR Normal CLEAR [facility] Comment on above: Performed By: #### UAMIC #### [facility] [address] [place] [address] Dr. Annie Rain Color (U) YELLOW Normal YELLOW [facility] Comment on above: Performed By: #### UAMIC #### [facility] [address] [place] [address] Dr. Annie Rain Crystals LM Nom (Urine sed) NONE SEEN Normal NONE SEEN [facility] Comment on above: Performed By: #### UAMIC #### [facility] [address] [place] [address] Dr. Annie Rain Epithelial cells LM Ql (Urine sed) RARE Normal NONE SEEN /RARE [facility] Comment on above: Performed By: #### UAMIC #### [facility] [address] [place] [address] Dr. Annie Rain Glucose Ql (U) Negative Normal NEGATIVE [facility] Comment on above: Performed By: #### UAMIC #### [facility] [address] [place] [address] Dr. Annie Rain Hemoglobin Ql (U) SMALL Abnormal NEGATIVE [facility] Comment on above: Performed By: #### UAMIC #### [facility] [address] [place] [address] Dr. Annie Rain Ketones Ql (U) TRACE Abnormal NEGATIVE [facility] Comment on above: Performed By: #### UAMIC #### [facility] [address] [place] [address] Dr. Annie Rain LEUKOCYTES Negative Normal NEGATIVE [facility] Comment on above: Performed By: #### UAMIC #### [facility] [address] [place] [address] Dr. Annie Rain MUCOUS NONE SEEN Normal NONE SEEN [facility] Comment on above: Performed By: #### UAMIC #### [facility] [address] [place] [address] Dr. Annie Rain Nitrite Ql (U) Negative Normal NEGATIVE [facility] Comment on above: Performed By: #### UAMIC #### [facility] [address] [place] [address] Dr. Annie Rain pH (U) 6.5 [pH] Normal 5-9 [facility] Comment on above: Performed By: #### UAMIC #### [facility] [address] [place] [address] Dr. Annie Rain RBC 2-5 Abnormal 0-2 [facility] Comment on above: Performed By: #### UAMIC #### [facility] [address] [place] [address] Dr. Annie Rain SPEC GRAVITY 1.020 Normal 1.005-<=1.02 5 [facility] Comment on above: Performed By: #### UAMIC #### [facility] [address] [address] [address] Annie Rain UA PROTEIN Negative Normal NEGATIVE/ TRACE [facility] Comment on above: Performed By: #### UAMIC #### [facility] [address] [address] [address] Annie Rain Urobilinogen Qn (U) 1.0 {Willam'U}/dL Normal 0.2 - 1.0 [facility] Comment on above: Performed By: #### UAMIC #### [facility] [address] [address] [address] Annie Rain WBC 0-2 Abnormal NONE SEEN [facility] Comment on above: Performed By: #### UAMIC #### [facility] [address] [address] [address] CHEST WO CONon [...] RUST Date: 2022-06-08 13:10 Normal [facility] CULTURE URINEon 05-30-2022 CULTURE URINE Culture Observations : NO GROWTH. Normal [facility] Comment on above: Performed By: #### INSGF1 #### [facility] [address] [place] [address] Dr. Annie Rain UA RANDOM W/MICROSCOPICon BACTERIA TRACE Abnormal NONE SEEN [facility] Comment on above: Performed By: #### UAMIC #### [facility] [address] [place] [address] Dr. Annie Rain Bilirubin Ql (U) Negative Normal NEGATIVE [facility] Comment on above: Performed By: #### UAMIC #### [facility] [address] [place] [address] Dr. Annie Rain CAST NONE SEEN Normal NONE SEEN [facility] Comment on above: Performed By: #### UAMIC #### [facility] [address] [place] [address] Dr. Annie Rain Clarity (U) CLEAR Normal CLEAR [facility] Comment on above: Performed By: #### UAMIC #### [facility] [address] [place] [address] Dr. Annie Rain Color (U) LT. YELLOW Normal YELLOW [facility] Comment on above: Performed By: #### UAMIC #### [facility] [address] [place] [address] Dr. Annie Rain Crystals LM Nom (Urine sed) NONE SEEN Normal NONE SEEN [facility] Comment on above: Performed By: #### UAMIC #### [facility] [address] [place] [address] Dr. Annie Rain Epithelial cells LM Ql (Urine sed) RARE Normal NONE SEEN /RARE [facility] Comment on above: Performed By: #### UAMIC #### [facility] [address] [place] [address] Dr. Annie Rain Glucose Ql (U) Negative Normal NEGATIVE [facility] Comment on above: Performed By: #### UAMIC #### [facility] [address] [place] [address] Dr. Annie Rain Hemoglobin Ql (U) Negative Normal NEGATIVE [facility] Comment on above: Performed By: #### UAMIC #### [facility] [address] [place] [address] Dr. Annie Rain Ketones Ql (U) Negative Normal NEGATIVE [facility] Comment on above: Performed By: #### UAMIC #### [facility] [address] [place] [address] Dr. Annie Rain LEUKOCYTES Negative Normal NEGATIVE [facility] Comment on above: Performed By: #### UAMIC #### [facility] [address] [place] [address] Dr. Annie Rain MUCOUS NONE SEEN Normal NONE SEEN [facility] Comment on above: Performed By: #### UAMIC #### [facility] [address] [place] [address] Dr. Annie Rain Nitrite Ql (U) Negative Normal NEGATIVE [facility] Comment on above: Performed By: #### UAMIC #### [facility] [address] [place] [address] Dr. Annie Rain pH (U) 6.0 [pH] Normal 5-9 [facility] Comment on above: Performed By: #### UAMIC #### [facility] [address] [place] [address] Dr. Annie Rain RBC 0-2 Normal 0-2 [facility] Comment on above: Performed By: #### UAMIC #### [facility] [address] [place] [address] Dr. Annie Rain SPEC GRAVITY <=1.005 Abnormal 1.005-<=1.02 5 [facility] Comment on above: Performed By: #### UAMIC #### [facility] [address] [place] [address] Dr. Annie Rain UA PROTEIN Negative Normal NEGATIVE/ TRACE [facility] Comment on above: Performed By: #### UAMIC #### [facility] [address] [place] [address] Dr. Annie Rain Urobilinogen Qn (U) 0.2 {Willam'U}/dL Normal 0.2 - 1.0 [facility] Comment on above: Performed By: #### UAMIC #### [facility] [id number] Annie Rain WBC 0-2 Abnormal NONE SEEN [facility] Comment on above: Performed By: #### UAMIC #### [facility] [address] [address] [address] Annie Rain Covid-19 PCR ([facility])on 03-16 SARS-CoV-2 (COVID-19) RNA GREGOR+probe Ql (Unsp spec) Detected Critically abnormal NOT DETECTED [facility] Comment on above: Result Comment: This test is not yet jose roved or cleared by the [place] FDA. When there are no FDA-approved or cleared tests available, and other criteria are met, FDA can make tests available under an emergency access mechanism called an Emergency Use Authorization (EUA). The EUA for this test is supported by the Plate Conditioner of Health and Human Service's declaration that [...] Performed By: #### I NSGF1 #### [facility] [address] [place] [address] Dr. Annie Rain MRI BRAIN WO W [...] studies available for comparison. Normal [facility] BUNon 02-05-2022 Urea nitrogen [Mass/Vol] 13.0 mg/dL Normal 7.0-18.0 [facility] Comment on above: Performed By: #### CREA, BUN #### [facility] [address] [address] [address] Annie Rain CREATININEon 02-05-2022 Creatinine [Mass/Vol] 0.70 mg/dL Normal 0.55-1.02 [facility] Comment on above: Performed By: #### INSGF1 #### [facility] [address] [address] [address] Annie Rain EGFR-AF OMANI >60 Normal >=60 [facility] Comment on above: Performed By: #### INSGF1 #### [facility] [address] [address] [address] Annie Rain EGFR-NON AF OMANI >60 Normal >=60 [facility] Comment on above: Performed By: #### INSGF1 #### [facility] [address] [address] [address] Annie Rain XR pelvis 1-2Von 09-14-2021 XR pelvis 1-2V [facility] Main [address] [address] XRay Report Signed Patient: Sherie Cunningham MR#: [id number] : 1955 Acct:[id number] Age/Sex: 66 / F ADM Date: 09/14/21 Loc: ICXD Room: Type: [facility] CLI Attending Dr: Nichelle Bailey II, MD Ordering Provider: Nichelle Bailey MD Date of Service: 09/14/21 XR/XR knee RT 4V*: M25.561 ([id number]) XR/XR pelvis 1-2V: M25.561 Copies to: Nichelle [...] Cedric Caal M.D.09/14/2021 11:59 AM Dictation Location: [place] [address] Transcribed By: [facility] 09/14/21 1159 Dictated By: Cedric Caal DO 09/14/21 1118 Signed By: 09/14/21 1159 Normal [facility] MR head/brain wo/w conon MR head/brain wo/w con [facility] Main [address] [address] MRI Report Signed Patient: Sherie Cunningham MR#: [id number] : 1955 Acct:[id number] Age/Sex: 65 / F ADM Date: 11/07/20 Loc: MR Room: Type: DEP CLI Attending Dr: Barry Woodson MD Ordering Provider: [...] Remberto Coulter M.D.11/08/2020 11:48 AM Dictation Location: [place] [address] Transcribed By: [facility] 11/08/20 1148 Dictated By: Remberto Coulter II, MD 11/08/20 1135 Signed By: 11/08/20 1148 Normal [facility] ISTAT XRay CREon 11-07-2020 Creatinine [Mass/Vol] 0.6 mg/dL Normal 0.6-1.3 [facility] Comment on above: Result Comment: ER/ESD physician is noti fied/shown all ISTAT results. Critical values may be confirmed by laboratory testing if deemed necessary by ER attending doctor. Performed By: #### I SCRE #### [address] Point of Care testing , ISTAT GFR ( > 60 Normal [facility] Comment on above: Result Comment: GFR estimated reference range: According to KDOQI guidelines, <60 ml/min/1.73m2 is sufficient to diagnose a patient with chronic kidney disease. PERFORMED BY: [place] [address] PATHOLOGIST [employer] MARK SERRATO M.D. Performed By: #### I SCRE #### [address] Point of Care testing , ISTAT GFR (Non- Am > 60 [facility] Comment on above: Performed By: #### ISCRE #### [address] Point of Care testing , Vital Signs Date Time Vital Sign Value Performing Clinician Facility 05-21-2024 14:13 Body height 162.6 cm Audelia JAIME Work Phone: [facility] 05-21-2024 14:130400 Body mass index (BMI) [Ratio] 26.26 kg/m2 Audelia JAIME Work Phone: [facility] 05-21-2024 14:13-0400 Body weight 69.4 kg Audelia Schmid PA Work Phone: [facility] 05-21-2024 14:13-0400 Diastolic blood pressure 90 mm[Hg] Audelia Schmid PA Work Phone: [facility] 05-21-2024 14:13-0400 Heart rate 69 /min Audelia Schmid PA Work Phone: [facility] 05-21-2024 14:13-0400 Respiratory rate 16 /min Audelia Schmid PA Work Phone: [facility] 05-21-2024 14:13-0400 SaO2% (BldA) [Mass fraction] 96 % Audelia Schmid PA Work Phone: [facility] 05-21-2024 14:13-0400 Systolic blood pressure 140 mm[Hg] Audelia Schmid PA Work Phone: [facility] 03-10-2024 14:14-0400 Blood Pressure Location Pablo ABRAHAML [facility] 03-10-2024 14:14-0400 Diastolic blood pressure 78 mm[Hg] Pablo NILL [facility] 03-10-2024 14:14-0400 Heart rate 72 /min Pablo NILL [facility] 03-10-2024 14:14-0400 Respiratory rate 16 /min Pablo NILL [facility] 03-10-2024 14:14-0400 Systolic blood pressure 136 mm[Hg] Pablo NILL [facility] 04-19-2022 12:15-0400 Body height 162.56 cm Nichelle Bailey II Other [employer] Other 04-19-2022 12:15-0400 Body mass index (BMI) [Ratio] 27.46 kg/m2 Nichelle Bailey II Other [employer] Other 04-19-2022 12:15-0400 Body weight 72.58 kg Nichelle Mcminn II Other [employer] Other 01-18-2022 10:15-0400 Body height 162.56 cm Nichelle Mcminn II Other [employer] Other 01-18-2022 10:15-0400 Body mass index (BMI) [Ratio] 27.98 kg/m2 Nichelle Mcminn II Other [employer] Other 01-18-2022 10:15-0400 Body weight 73.94 kg Nichelle Mcminn II Other [employer] Other 01-03-2022 12:45-0400 Body height 162.56 cm Nichelle Mcminn II Other [employer] Other 01-03-2022 12:45-0400 Body mass index (BMI) [Ratio] 27.98 kg/m2 Nichelle Lynn II Other [employer] Other 01-03-2022 12:45-0400 Body weight 73.94 kg Nichelle Mcminn II Other [employer] Other 09-14-2021 10:00-0500 Body height 162.56 cm Nichelle Mcminn II Other [employer] Other 09-14-2021 10:00-0500 Body mass index (BMI) [Ratio] 27.63 kg/m2 Nichelle Mcminn II Other [employer] Other 09-14-2021 10:00-0500 Body weight 73.03 kg Nichelle Mcminn II Other [facility] [employer] Other Encounters Encounter Date Encounter Type Care Provider Facility Start: 05-21-2024 End: 05-21-2024 Bamboo flowsheet Audelia JAIME Work Phone: [facility] Start: 05-21-2024 End: 05-21-2024 Bam1Ringo flowsheet Audelia JAIME Work Phone: [facility] Start: 05-21-2024 End: 05-21-2024 Office outpatient visit 25 minutes Audelia JAIME Work Phone: [facility] Comment on above: 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); Dizziness; Migraine without aura and without status migrainosus, not intractable (CMS/HCC); Memory change Start: 05-21-2024 End: 05-21-2024 ambulatory AUDELIA SCHMID Not Available Start: 05-08-2024 End: 05-08-2024 ambulatory [facility] Start: 04-22-2024 End: 04-22-2024 ambulatory Pablo VALENCIA Facility:CD:[id number] Start: 03-10-2024 End: 03-10-2024 ambulatory Greg Aleman Facility:[facility] Start: 03-10-2024 End: 03-10-2024 Patient encounter procedure Pablo VALENCIA [facility] [place] Start: 10-17-2023 End: 10-17-2023 ambulatory HAY BLAS [facility] Start: 10-29-2022 End: 10-30-2022 ambulatory JOSSIE [...] Facility:[facility] Start: 04-19-2022 End: 04-19-2022 ambulatory Nichelle Lynn II Other [employer] Other Start: 04-19-2022 Office outpatient vi sit 25 minutes Nichelle Mcminn II [facility] Start: 04-03-2022 End: 04-03-[address] GREG ALEMAN Facility:[facility] Start: 02-05-2022 End: 02-06-2022 ambulatory AUDELIA UNGER Facility:[facility] Start: 01-29-2022 End: 03-05-2022 ambulatory NICHELLE LYNN Facility:[facility] Start: 01-18-2022 End: 01-18-2022 ambulatory Nichelle Lynn II Other [employer] Other Start: 01-18-2022 Office outpatient vi sit 25 minutes Nichelle Mcminn II [facility] Start: 01-03-2022 End: 01-03-2022 ambulatory Nichelle Lynn II Other [employer] Other Start: 01-03-2022 Office outpatient vi sit 15 minutes Nichelle Mcminn II [facility] Start: 09-14-2021 End: 09-14-2021 ambulatory Nichelle Mcminn II Other [employer] Other Start: 09-14-2021 Office outpatient ne w 30 minutes Nichelle Mcminn II [facility] Procedures Date Procedure Procedure Detail Performing Clinician Start: 06-17-2019 Colonoscopy Pablo VALENCIA Start: 06-17-2019 Esophagoduodenostomy Pablo VALENCIA Comment on above: with biopsy Start: 01-22-2006 Esophagogastroduodenoscopy Pablo VALENCIA Start: 12-06-2005 Colonoscopy Pablo VALENCIA Abdominal hysterectomy Gerald VALENCIA Bilateral salpingect orestes with oophorectomy Pablo VALENCIA History of subtotal thyroidectomy Pablo VALENCIA Plan of Treatment Date Care Activity Detail Author Start: 08-12-2024 End: 08-12-2024 Patient encounter procedure 08/12/2024 1:00 PM EST Office Visit [facility] [address] [place] [address] Audelia Schmid PA [address] [place] [address] [facility] [place] [facility] Start: 05-21-2024 End: 05-21-2024 Patient encounter procedure 05/21/2024 2:00 PM EDT Office Visit [facility] [place] [facility] [address] [place] [address] Audelia Schmid PA [address] [place] [address] Arrived [facility] [place] [facility] Comment on above: Arrived Immunizations Immunization Date Immunization Notes Care Provider Fa tracy NEGATED: Highlighted row has not occurred!06-26-2019 influenza virus vaccine, unspecified formulation Pablo VALENCIA [facility] [place] Comment on above: Result Comment: Will consult with primary care physician Payers Date Payer Category Payer [place] [id number] 2022-Present [phone] [address] [place] [address] Medicaid [id number] 2022 Medicare MEDICARE MEDICAR E PART B [id number] 2022-[place] [address] Medicare [id number] 1959 Medicaid [id number] 1959 Medicare [id number] [id number] 1959 Unknown [id number] [id number] 1957 Unknown [id number] 2.16.840.1.851387.3.579.2.593 1957 Unknown [id number] 2.16.840.1.691595.3.579.2.593 1957 Unknown [id number] 2.16.840.1.516738.3.579.2.593 1957 Unknown [id number] 2.16.840.1.080591.3.579.2.593 1957 Unknown [id number] 2.16.840.1.790599.3.579.2.593 1957 Unknown [id number] 2.16.840.1.289180.3.579.2.593 1957 Unknown [id number] 2.16.840.1.565974.3.579.2.593 1957 Unknown [id number] 2.16.840.1.997379.3.579.2.593 1957 Unknown [id number] 2.16.840.1.177086.3.579.2.593 1957 Unknown [id number] 2.16.840.1.825212.3.579.2.593 1957 Unknown [id number] 2.16.840.1.743146.3.579.2.593 1957 Unknown [id number] 2.16.840.1.423999.3.579.2.727 1957 Unknown [id number] 2.16.840.1.012864.3.579.2.727 1957 Unknown [id number] 2.16.840.1.196062.3.579.2.1259 Social History Date Type Detail Facility Start: 04-15-2024 Sex Assigned At F [facility] Start: 03-10-2024 End: 04-15-2024 Tobacco smoking status Ex-smoker (finding) [facility] Tobacco smoking status Never [facility] History of tobacco use Current smoker [facility] History of tobacco use Cigarette Smoker [facility] Start: 04-15-2024 Alcoholic beverage intake Lifetime non-drinker (finding) [facility] Start: 04-15-2024 History of Social function [facility] Start: 1955 Sex assigned at Not on file N [facility] Functional Status Date Assessment Result Facility 03-10-2024 Functional Status N/A [facility] Clinical Notes 09-14-2021 to 05-08-2024 Note Date & Type Note Facility 05-08-2024 Note [place] [facility] - [facility] Subjective Sherie Cunningham is a 69 y.o. year old female patient being seen for six month follow up. Pt had lipids done yesterday. Pt has hypertensive disorder, hyperlipidemia, and prinzmetal angina. Pt has no chest pain, no palpataions, no dizziness. 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 She does not like to take medications. On several prior visits she was reluctant to adjust medical therapy for hypertension or other conditions. Today she reports that she has been doing well. She does report having had episodes of chest pain in the past few weeks and at 1 point she thought about using sublingual nitroglycerin but did not. She has been having a lot of pain in the stomach. She is seeing GI. Today her blood pressure is elevated in the office. Review of Systems Constitutional: Positive for diaphoresis. Weight loss: 12# since 03/25/2023. Respiratory: Positive for cough (getting better). Gastrointestinal: Positive for abdominal pain. Neurological: Negative for dizziness and light-headedness. All other systems reviewed and are negative. Objective Visit Vitals BP 153/87 (BP Location: Right arm, Patient Position: Sitting) Pulse 74 Ht 1.6 m (5' 3 ) Wt 69.4 kg (153 lb) SpO2 96% BMI 27.10 kg/m??? Smoking Status Former BSA 1.76 m??? Physical Exam Constitutional: Appearance: She is [...] Judgment: Judgment normal. Allergies Allergies Allergen Reactions Amlodipine Swelling Coconut Onion Medications Current Outpatient Medications: albuterol 90 mcg/actuation inhaler, INHALE 2 PUFFS BY MOUTH 4 TIMES A DAY, Disp: , Rfl: cholecalciferol, vitamin D3, 50 mcg (2,000 unit) capsule, Take 2,000 Units by mouth in the morning., Disp: , Rfl: famotidine (Pepcid) 40 mg tablet, Take 40 mg by mouth., Disp: , Rfl: hyoscyamine 0.125 mg dissolvable tablet, Take 0.125 mg by mouth every 4 (four) hours if needed., Disp: , Rfl: lisinopril 5 mg tablet, TAKE 1 TABLET BY MOUTH EVERY DAY, Disp: 90 tablet, Rfl: 3 ezetimibe (Zetia) 10 mg tablet, Take 1 tablet (10 mg) by mouth in the morning., Disp: 90 tablet, Rfl: 3 isosorbide mononitrate ER (Imdur) 30 mg 24 hr tablet, Take 1 tablet (30 mg) by mouth once daily in the morning. Do not crush or chew., Disp: 90 tablet, Rfl: 3 nitroglycerin (Nitrostat) 0.3 mg SL table (more content not included)... [facility] 03-13-2024 Note General Surgery Offi ce/Clinic Note [...] Anxiety Bilateral lo (more content not included)... [facility] Comment on above: Result Comment: Elec tronically Signed By: ERIK SMALLWOOD, Pablo Workman\Date and Time Signed: 03/13/24 10:51 EDT 10-17-2023 Note Lipids elevated and pt prefers to start with diet and lifestyle modifications Will repeat lipid level in 3 months to re-evaluate [facility] 10-17-2023 Note Hypertension is elev ated in office, she is adamant that b/p is well controlled at home. Staff to call pt in 1-2 weeks to review b/p log. Continue lisinopril 5 mg daily- she reports a dry cough but states this is r/t her lung disease- we discussed side effect of lisinopril can be cough and she voiced understanding. [facility] 10-17-2023 Note Stable continue all medications [facility] 10-17-2023 Note [facility] CARDIOLOGY PROGR ESS [...] wall motion abnor (more content not included)... [facility] 10-17-2023 Note Patient here for 6 [...] All other systems reviewed and are negative. [facility] 06-25-2022 Note PROCEDURE: CT CSPINE WO [...] authenticated by: YENI RUST Date: 2022-06-25 13:55 [facility] 06-25-2022 Note PROCEDURE: XR HAND L [...] authenticated by: BARRY HO Date: 2022-06-25 13:49 [facility] 04-19-2022 Evaluation note Encounter Date Diagnosis [...] we will get a lumbar spine x-ray. [employer] Other 05-05-2022 Evaluation note* Encounter Date Diagnosis [...] a viscosupplementation. 6. Follow up 3 months [employer] Other 04-20-2022 Evaluation note* Encounter Date Diagnosis [...] knee compared to a partial knee replacement. [employer] Other 12-30-2021 Evaluation note* Encounter Date Diagnosis [...] this well. 5. Follow up 3 months [employer] Other Evaluation + Plan note No data available for this section [employer] 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 Dizziness Dizziness and giddiness Migraine without aura and without status migrainosus, not intractable (CMS/HCC) Memory change Memory loss documented in this encounter [facility] - Reported* Type Description Date Medical History COPD Medical History emphysema Medical History migraine headache Medical History Panic attacks Surgical History thyroidectomy-partial Surgical History hysterectomy Surgical History oophorectomy Surgical History eye surgery Hospitalization History pneumonia Hospitalization History chest pain 04/2021 [employer] Other Hospital Discharge instructions No data available for this section [employer] [facility] Progress note No data available for this section [facility] Summary Purpose Family History No Family History Records FoundNo Family History Records FoundNo Family History Records Found No data available for this section No Family History Records FoundNo Family History Records FoundNo Family History Records Found Advance Directives No Advanced Directives Records FoundNo Advanced Directives Records FoundNo Advanced Directives Records FoundNo Advanced Directives Records FoundNo Advanced Directives Records FoundNo Advanced Directives Records Found Additional Source Comments INFORMATION SOURCE (unrecogn ized section and content) DATE CREATED AUTHOR 11/12/2020 [facility] DATE CREATED AUTHOR AUTHOR'S ORGANIZ ATION 12/04/2021 [facility] DATE CREATED AUTHOR AUTHOR'S ORGANIZ ATION 11/03/2022 [facility] DATE CREATED AUTHOR AUTHOR'S ORGANIZ ATION 05/01/2024 [facility] DATE CREATED AUTHOR AUTHOR'S ORGANIZ ATION 05/10/2024 [facility] DATE CREATED AUTHOR AUTHOR'S ORGANIZ ATION 05/23/2024 [facility] dical Specialists EPIC REASON FOR VISIT (unrecogniz ed section and content) Reason Comments Memory Loss Headache Dizziness Patient Care team informatio n (unrecognized section and content) Personnel Name: Greg Aleman MD Address: Address: [address] [place] [address] FOR RECORDS PERTAINING TO PATIENTS WHO ARE [...] BE BASED ON THE PRIMARY CLINICAL RECORDS. [facility] [employer] [facility]. provides no warranty or guarantee of the accuracy or completeness of information in this document.
[2024-11-27 13:38] LABS: Basophils Absolute Auto 0.1 10^3/uL (0.0-0.1); Basophils Percent Auto 1.5 % (0.2-2.0); Eosinophils Absolute Auto 0.1 10^3/uL (0.0-0.7); Eosinophils Percent Auto 2.2 % (0.9-7.0); Hematocrit 38.1 % (36.0-48.0); Hemoglobin 12.4 g/dL (12.0-16.0); Lymphocytes Percent Auto 43.1 % (20.5-60.0); Mean Corpuscular HGB Conc 32.5 g/dL (29.9-35.2); Mean Corpuscular Hemoglobin 29.4 pg (26.7-34.0); Mean Corpuscular Volume 90.3 fL (81.0-99.0); Mean Platelet Volume 10.4 fL (9.5-13.5); Monocytes Absolute Auto 0.2 10^3/uL (0.3-0.8); Monocytes Percent Auto 5.2 % (1.7-12.0); Neutrophils Absolute Auto 2.2 10^3/uL (1.4-6.5); Platelet Count 267 10^3/uL (150-450); Red Blood Count 4.22 10^6/uL (4.20-5.40); Red Cell Distribution Width 12.3 % (11.0-15.0); White Blood Count 4.6 10^3/uL (4.0-11.0)
[2024-11-27 13:45] LABS: Erythrocyte Sedimentation Rate 11 mm/hr (<=30)
[2024-11-27 15:25] LABS: Alanine Aminotransferase 12 U/L (14-59); Albumin Globulin Ratio 1.2; Albumin Level 4.1 g/dL (3.4-5.0); Alkaline Phosphatase 79 U/L (46-116); Aspartate Amino Transferase 16 U/L (15-37); BUN Creatinine Ratio 14.1; Bilirubin Total 0.4 mg/dL (0.2-1.0); Calcium 9.5 mg/dL (8.5-10.1); Carbon Dioxide 28.6 mmol/L (21.0-32.0); Chloride 106 mmol/L (98-107); Estimated GFR (African America >60 (>=60 mL/min/1.73m^2); Estimated GFR (Non-African Ame >60 (>=60 mL/min/1.73m^2); Globulin 3.4 g/dL; Glucose 91 mg/dL (74-106); Potassium 3.6 mmol/L (3.5-5.1); Sodium 143 mmol/L (136-145); Thyroid Stimulating Hormone 0.274 uIU/mL (0.358-3.740); Total Protein 7.5 g/dL (6.4-8.2)
[2024-11-27 15:27] LABS: C Reactive Protein <0.50 mg/dL (<=0.50)
[2024-11-28 07:07] LABS: HIV Ab/p24 Ag Screen Non Reactive (Non Reactive)
[2024-11-30 13:09] LABS: Deamidated Gliadin Abs, IgA 3 units (0-19); Deamidated Gliadin Abs, IgG 2 units (0-19); Endomysial Antibody IgA Negative (Negative); Immunoglobulin A, Qn, Serum 101 mg/dL (87-352); t-Transglutaminase (tTG) IgA <2 U/mL (0-3); t-Transglutaminase (tTG) IgG 3 U/mL (0-5)
[2024-11-30 17:07] LABS: Calprotectin, Fecal <5 ug/g (0-120)
== END 2024-11-27 13:00 | disposition home or self-care (01) ==
LOC: LAB 13:03
PROVIDERS: PCP Family Medicine; Visit Provider Internal Medicine
DX: R14.0 Abdominal distension (gaseous) (principal); R19.8 Other specified symptoms and signs involving the digestive system and abdomen; R10.13 Epigastric pain; R10.9 Unspecified abdominal pain; R11.0 Nausea
CPT/HCPCS: 36415; 80053; 82784; 83993; 84443; 85025; 85652; 86140; 86231; 86258; 86364; 87389; 87493

== ENCOUNTER 2025-02-26 09:51 | Outpatient (OUT) | payer MEDICARE, MEDICAID, SELFPAY ==
--- OUTSIDE RECORDS SUMMARY | 2024-08-07 10:30 | XMS_ITS ---
Author Organization [facility] in [place] Address [address] [place] [address] Care Team Providers Care Vc++ Developer Name Role Phone Lennox Aleman Primary Care Provider [phone] Allergies No Known Allergies REASON FOR VISIT sick, sinus or allergies, been 2-3 weeks, cough getting worse has yellow discharge, cough ribs hurtcant sleep Medications Medication SIG (Take, Route, Frequency, Duration) Notes Start Date End Date Status Sucralfate 1 GM 1 tablet on an empty stomach Orally qid for 10 days 04/30/2024 Active Pepcid 40 MG 1 tablet Orally bid for 30 days 01/06/2024 Active Melatonin PRN Active Levsin/SL 0.125 MG 1 tablet under the t ongue and allow to dissolve as needed Sublingual AC and HS 10/09/2023 Active Ventolin HFA 108 (90 Base) MCG/ACT 2 puff as needed Inhalation every 4 hrs PRN Active Aspirin 81 81 MG 1 tablet Orally Once a day PRN Active Albuterol Sulfate (2.5 MG/3ML) 0.083% 3 mL as needed Inhalation every 6 hrs PRN Active levoFLOXacin 750 MG 1 tablet Orally Once a day for 10 days 08/07/2024 Active predniSONE 20 MG 3 tablets Orally Onc e a day for 5 days 08/07/2024 Active Social History Tobacco Use: Social History Observation Description Date Details (start date - stop date) Former Smoker 09/16/1972 - 09/16/2017 Tobacco Use/Smoking Question Answer Notes Patient is a former smoker When did you start smoking? 09/16/1972 When did you stop smoking? 09/16/2017 How long has it been since you last smoked? 5-10 years Vital Signs Temperature 98.9 degrees Fahrenheit 08/07/20 24 Blood pressure systolic 130 mm Hg 08/07/20 24 Blood pressure diastolic 78 mm Hg 024 Height 63 in 08/07/2024 Weight 152.6 lbs 08/07/2024 BMI 27.03 kg/m2 08/07/2024 Encounters Encounter Location Date Provider Diagnosis [facility] [address] [place] [address] 08/07/2024 Lennox Aleman Acute bronchitis, unspecified organism J20.9 and COPD (chronic obstructive pulmonary disease) J44.9 Assessments Encounter Date Diagnosis (ICD Code) Assessment Notes Treatment Notes Treatment Clinical Notes Section Notes 08/07/2024 Acute bronchitis, unspecified organism (ICD-10 - J20.9) Rest and drink more liquids, especially water. You may use a humidifier or vaporizer to help keep the drainage moist. Mkxb-sar-aubnwds Nasal Saline may help the stuffy and runny nose. Use Ibuprofen and or Tylenol as needed for fever, chills, body aches or pain. Children 5 years old should not be given bohh-qtr-ezswgdr cough and cold medications such as guaifenesin and dextromethorphan. If you're over age 5, you may try ffyc-hpx-zfhyyhf cold medications such as guaifenesin and dextromethorphan, or multi-symptom cold reliever such as Dayquil to help reduce the symptoms. Antibiotics have been prescribed. You should take these until completed and follow the directions. Antibiotics can sometimes cause upset stomach, and in rare cases, serious allergic reactions or serious gastrointestinal problems. If you start having severe abdominal pain, severe vomiting, or bloody diarrhea, you should be reevaluated by your physician or urgent care immediately. Follow up with your Primary Care Provider or return to clinic if symptoms do not improve within 3-5 days. If you develop severe symptoms such as shortness of breath, repeated vomiting, coughing up blood, or chest pain you should go to the emergency room or call 911 08/07/2024 COPD (chronic obstructive pulmonary disease) (ICD-10 - J44.9) Plan Of Treatment Medication Medication Name Sig Start Date Stop Date Notes levoFLOXacin 750 MG 1 tablet Orally Once a day for 10 days 08/07/2024 predniSONE 20 MG 3 tablets Orally Once a day for 5 days Treatment Notes Assessment Notes Acute bronchitis, unspecified organism R est and drink more liquids, especially water. You may use a humidifier or vaporizer to help keep the drainage moist. Cvqd-arh-dmrotoj Nasal Saline may help the stuffy and runny nose. Use Ibuprofen and or Tylenol as needed for fever, chills, body aches or pain. Children 5 years old should not be given vwgy-jli-qhllggk cough and cold medications such as guaifenesin and dextromethorphan. If you're over age 5, you may try pwgs-mmf-krbqmzk cold medications such as guaifenesin and dextromethorphan, or multi-symptom cold reliever such as Dayquil to help reduce the symptoms. Antibiotics have been prescribed. You should take these until completed and follow the directions. Antibiotics can sometimes cause upset stomach, and in rare cases, serious allergic reactions or serious gastrointestinal problems. If you start having severe abdominal pain, severe vomiting, or bloody diarrhea, you should be reevaluated by your physician or urgent care immediately. Follow up with your Primary Care Provider or return to clinic if symptoms do not improve within 3-5 days. If you develop severe symptoms such as shortness of breath, repeated vomiting, coughing up blood, or chest pain you should go to the emergency room or call 911 Next Appt Details Follow Up: 3-5 days if not i mproving, Reason: Progress Notes * GUSTAVO Sherie BabbDOB: 7 (69 yo F)Acc No.[id number]:08/07/2024 Progress Note Patient: Sherie LOYA Provider: Korina Aleman ([facility])MD :1955 A ge:69 Y S ex:Female Date:08/07/2024 Address:[facility] [place] [id number] Check In:02:24 PM ESTCheck O ut:03:08 PM EST Subjective: * Chief Complaints: * S ickSinus or allergiesBeen 2-3 weeksCough getting worse has yellow dischargeCough ribs hurt cant sleep * HPI: B ronchitis: The patient complains of symptoms of bronchitis. The symptoms have been present for 1-2 days. The symptoms are moderate. The patient has not been exposed to sick contacts. Symptomatic treatment has included OTC medication. Associated symptoms include nasal congestion, postnasal drainage, congested ears, cough, fever, chills, body aches. * ROS: E NT: Ear pain d enies. H oarseness d enies. ? C ardiovascular: Edema d enies. P alpitations d enies. ? R espiratory: Comments S HPI for details. G astrointestinal: Abdominal pain d enies. D iarrhea d enies. N ausea d enies. S kin: Rash d enies. * Active Problem List J44.9 COPD (chronic obstru ctive pulmonary disease) Modified On:10/09/2023U Status:confirmed K21.9 GERD (gastroesophage al reflux disease) Modified On:05/30/2023 Status:confirmed M79.7 Fibromyalgia Modified On:05/30/2023 Status:confirmed I20.1 Angina pectoris, celeste iant Modified On:05/27/2023 Status:confirmed E78.5 Dyslipidemia Modified On:10/09/2023 Status:confirmed I10 Benign essential HTN Modified On:05/27/2023 Status:confirmed K21.00 Gastro-esophageal re flux disease with esophagitis, without bleeding Modified On:05/27/2023U Status:confirmed M54.16 Acute lumbar radicul opathy Modified On:05/27/2023U Status:confirmed G47.419 Narcolepsy Modified On:05/27/2023 Status:confirmed M79.7 Fibromyalgia Modified On:05/27/2023 Status:confirmed J44.9 Acute chronic obstru ctive pulmonary disease with respiratory distress Modified On:05/27/2023U Status:confirmed K52.9 Acute colitis Modified On:05/27/2023U Status:confirmed F41.9 Anxiety Modified On:05/27/2023U Status:confirmed J02.0 Strep pharyngitis Modified On:07/12/2023U Status:confirmed K29.70 Gastritis Modified On:10/09/2023U Status:confirmed I20.1 Angina pectoris with documented spasm Modified On:10/18/2023 Status:confirmed I10 Essential (primary) hypertension Modified On:10/18/2023 Status:confirmed D32.9 Meningioma Modified On:10/25/2023 Status:confirmed E23.6 Other disorders of p ituitary gland Modified On:11/08/2023U Status:confirmed R10.11 Right upper quadrant abdominal pain Modified On:01/06/2024 Status:confirmed R10.32 Left lower quadrant abdominal pain Modified On:01/06/2024 Status:confirmed K58.9 Irritable bowel Modified On:04/30/2024 Status:confirmed K21.9 GERD without esophag itis Modified On:04/30/2024 Status:confirmed * Medical History: * Surgical History: E GD& Colonoscopy 2018Fatty Tumor taken off Thyroid Partial Hysterctomy 1989Removal of Both ovaries and cyst 2018EGD & colonoscopy 04-22-2024 * Hospitalization/Major Diagno stic Procedure: C hest Pains 2020 * Family History: F ather: alive, Lung Cancer, Cancer on nose, COPD. M other: , Cancer- passed 2020.?Brother(s): alive. S ister(s): alive. S on(s): alive, irritable bowel syndrome. D aughter(s): alive, irritable bowel syndrome, diagnosed with Unspecified heart disease. 1 brother(s) , 1 sister(s) . 2 son(s) , 2 daughter(s) . . * Social History: T obacco Use: T obacco Use/Smoking P atient is a f ormer smoker W hen did you start smoking? 0 09/16/1972 W hen did you stop smoking? 0 09/16/2017 H ow long has it been since you last smoked??5-10 years * Medications: T akingAlbuterol Sulfate (2.5 MG/3ML) 0.083% Nebulization Solution 3 mL as needed Inhalation every 6 hrs , Notes to Pharmacist: PRNAspirin 81(Aspirin) 81 MG Tablet Delayed Release 1 tablet Orally Once a day , Notes to Pharmacist: PRNLevsin/SL(Hyoscyamine Sulfate) 0.125 MG Tablet Sublingual 1 tablet under the tongue and allow to dissolve as needed Sublingual AC and HS Melatonin , Notes to Pharmacist: PRNPepcid(Famotidine) 40 MG Tablet 1 tablet Orally bid Sucralfate 1 GM Tablet 1 tablet on an empty stomach Orally qid Ventolin HFA(Albuterol Sulfate HFA) 108 (90 Base) MCG/ACT Aerosol Solution 2 puff as needed Inhalation every 4 hrs , Notes to Pharmacist: PRNTaking Albuterol Sulfate (2.5 MG/3ML) 0.083% Nebulization Solution 3 mL as needed Inhalation every 6 hrs , Notes to Pharmacist: PRNTaking Aspirin 81(Aspirin) 81 MG Tablet Delayed Release 1 tablet Orally Once a day , Notes to Pharmacist: PRNTaking Levsin/SL(Hyoscyamine Sulfate) 0.125 MG Tablet Sublingual 1 tablet under the tongue and allow to dissolve as needed Sublingual AC and HS Taking Melatonin , Notes to Pharmacist: PRNTaking Pepcid(Famotidine) 40 MG Tablet 1 tablet Orally bid Taking Sucralfate 1 GM Tablet 1 tablet on an empty stomach Orally qid Taking Ventolin HFA(Albuterol Sulfate HFA) 108 (90 Base) MCG/ACT Aerosol Solution 2 puff as needed Inhalation every 4 hrs , Notes to Pharmacist: PRNDiscontinuedCephalexin 500 MG Tablet 2 tabs Orally bid Medication List reviewed and reconciled with the patientDiscontinued Cephalexin 500 MG Tablet 2 tabs Orally bid Medication List reviewed and reconciled with the patient * Allergies: N .K.D.A.no[Allergies Verified] Objective: * Vitals: W t:152.6lbs, Ht: 63 in, BP:130/78mm Hg, Temp:98.9F, BMI:27.03Index, Ht-cm: 160.02 cm, Wt-k.22 kg. * Examination: G eneral Examination: GENERAL APPEARANCE: in no acute distress. EYES: EOMI. EARS: auditory canal clear, middle ear effusion noted.? NOSE: clear discharge, turbinates pale and swollen. ORAL CAVITY: mucosa moist. THROAT: no erythema, post-nasal drainage noted. NECK: neck supple, no thyromegaly. LYMPH NODES: n o cervical adenopathy. LUNGS: unlabored, clear to auscultation bilaterally. CARDIO: n o murmurs, regular rate and rhythm. ABDOMEN: bowel sounds present, no organomegaly . ? Assessment: * Assessment: 1. A cute bronchitis, unspecified organism - J20.9 (Primary) 2 . C OPD (chronic obstructive pulmonary disease) - J44.9 Plan: * Treatment: * Procedure Codes: * Preventive Medicine: Screenings/Counseling: B [place] ACTION PLAN Above Normal BMI Follow-up D ietary management education, guidance, and counseling F ALL RISK SCREENING Fall Risk Assessment: N o falls in the past year * Follow Up: 3 -5 days if not improving * * Sign off status: Completed Visit Status: C HK (Check Out) true * Provider: Korina Aleman ([facility])MD Date: 10/07/2023 Generated for Debbie patel/Timbo/eTransmitting on: 0 02/26/2025 09:53 AM EDT History and Physical Notes * Examination Category Sub-Category Detail Notes Category Not es General Examination GENERAL APPEARANCE: in no acute di stress EYES: EOMI EARS: auditory canal clear , middle ear effusion noted NOSE: clear discharge, tur binates pale and swollen THROAT: no erythema, post-na kristy drainage noted NECK: neck supple, no thyr omegaly CARDIO: no murmurs, regular rate and rhythm LUNGS: unlabored, clear to auscultation bilaterally ABDOMEN: bowel sounds present , no organomegaly LYMPH NODES: no cervical adenopat hy ORAL CAVITY: mucosa moist
--- OUTSIDE RECORDS SUMMARY | 2025-02-05 09:00 | XMS_ITS ---
Author Organization [facility] in [place] Address [address] [place] [address] Care Team Providers Care Combination Building Inspector Name Role Phone Lennox Aleman Primary Care Provider [phone] Allergies No Known Allergies REASON FOR VISIT YEARLY Medications Medication SIG (Take, Route, Frequency, Duration) Notes Start Date End Date Status Levsin/SL 0.125 MG 1 tablet under the t ongue and allow to dissolve as needed Sublingual AC and HS 10/09/2023 Active Melatonin PRN Active Ventolin HFA 108 (90 Base) MCG/ACT 2 puff as needed Inhalation every 4 hrs PRN Active Albuterol Sulfate (2.5 MG/3ML) 0.083% 3 mL as needed Inhalation every 6 hrs PRN Active Aspirin 81 81 MG 1 tablet Orally Once a day PRN Active Sucralfate 1 GM 1 tablet on an empty stomach Orally qid for 10 days 04/30/2024 Active Pepcid 40 MG 1 tablet Orally bid for 30 days 01/06/2024 Active Cardizem CD 120 MG 1 capsule Orally Onc e a day for 30 day(s) 02/05/2025 Active Social History Tobacco Use: Social History Observation Description Date Details (start date - stop date) Former Smoker 09/16/1972 - 09/16/2017 Tobacco Use/Smoking Question Answer Notes Patient is a former smoker When did you start smoking? 09/16/1972 When did you stop smoking? 09/16/2017 How long has it been since you last smoked? 5-10 years AUDIT-C (Standard) Question Answer Notes Did you have a drink containing alcohol in the p ast year? No Points 0 Interpretation Negative Vital Signs Blood pressure systolic 122 mm Hg 02/06/20 25 Blood pressure diastolic 72 mm Hg 025 Height 63 in 02/05/2025 Weight 151.0 lbs 02/05/2025 BMI 26.75 kg/m2 02/05/2025 Encounters Encounter Location Date Provider Diagnosis [facility] [address] [place] [address] 02/05/2025 Lennox Aleman COPD (chronic obstructive pulmonary disease) J44.9 ; Fibromyalgia M79.7 ; Benign essential HTN I10 and Meningioma D32.9 Assessments Encounter Date Diagnosis (ICD Code) Assessment Notes Treatment Notes Treatment Clinical Notes Section Notes 02/05/2025 COPD (chronic obstructive pulmonary disease) (ICD-10 - J44.9) 02/05/2025 Fibromyalgia (ICD-10 - M79.7) 02/05/2025 Benign essential HTN (ICD-10 - I10) 02/05/2025 Meningioma (ICD-10 - D32.9) Plan Of Treatment Medication Medication Name Sig Start Date Stop Date Notes Sucralfate 1 GM 1 tablet on an empty stomach Orally qid for 10 days 04/30/2024 Pepcid 40 MG 1 tablet Orally bid for 30 days 01/06/2024 Cardizem CD 120 MG 1 capsule Orally Onc e a day for 30 day(s) 02/05/2025 Pending Test Test Name Order Date HEMOGLOBIN A1C (GLYCO) 02/05/2025 IRON, TOTAL 02/05/2025 LIPID PANEL (CHOL/TRIG/HDL/LDL) 02/06/20 25 STOOL OCCULT BLOOD 02/05/2025 XR DEXA BONE DENSITY 02/05/2025 THYROID PANEL (T4/TSH/FREE T3) 5 MM screening mammo BI 02/05/2025 CMP (COMP MET HINES) w/eGFR CKD-EPI 2024 CBC WITH DIFF 02/05/2025 Progress Notes * Sherie CUNNINGHAMDOB: 7 (69 yo F)Acc No.[id number]:02/05/2025 Progress Note Patient: Stefano LOYAjay Babb Provider: Korina Aleman ([facility])MD :1955 A ge:69 Y S ex:Female Date:02/05/2025 Address:[address] [id number] Check In:12:57 PM ESTCheck O ut:01:20 PM EST Subjective: * Chief Complaints: * Y EARLY * ROS: E ENT: hearing changes d enies. v isual changes d enies.?non-healing mouth sores d enies. s wollen glands or neck lumps d enies. h oarseness d enies. s ore throat d enies. d ifficulty swallowing d enies. n ose bleeds d enies. n chaparrita congestion d enies. e ar ache d enies. e ar discharge?denies. r inging in ears d enies. l ight sensitivity d enies. e ye pain d enies. b lurring d enies. e ye irritation d enies. d ouble vision d enies.?vision loss d enies. G eneral/Constitutional: Sweats: D enies. F atigue d enies. S leep problems d enies. A norexia d enies. M alaise d enies. W eight loss d enies.?Fatigue or Weakness d enies. F ever or Chills d enies. C ardiovascular: Shortness of Breath w/lying flat d enies. L ightheadedness/dizziness d enies. C hest tightness/ heavy pressure d enies. S welling of legs, ankles, or feet d enies. W aking up with shortness of breath d enies. C hest pain denies. P alpitations d enies. W eight gain d enies. R espiratory: Chronic or frequent cough d enies. C oughing up blood?denies. D ifficulty breathing d enies. P roductive cough d enies. S noring?denies. S hortness of breath that awakens from sleep (PND) d enies. C hest pain d enies. S putum production d enies. W heezing d enies. M usculoskeletal: Joint pain d enies. J oint Fluid d enies. B ack pain d enies. K nee pain d enies. N radha pain d enies. J oint Stiffness d enies. M uscle cramps d enies. W eakness of muscles d enies. A rthritis d enies. M uscle aches d enies. P ain in shoulder(s) d enies. S wollen joints d enies. * Active Problem List J44.9 COPD (chronic obstru ctive pulmonary disease) Modified On:10/09/2023U Status:confirmed K21.9 GERD (gastroesophage al reflux disease) Modified On:05/30/2023 Status:confirmed M79.7 Fibromyalgia Modified On:05/30/2023 Status:confirmed I20.1 Angina pectoris, cleeste iant Modified On:05/27/2023 Status:confirmed E78.5 Dyslipidemia Modified On:10/09/2023 Status:confirmed I10 Benign essential HTN Modified On:05/27/2023U Status:confirmed K21.00 Gastro-esophageal re flux disease with esophagitis, without bleeding Modified On:05/27/2023U Status:confirmed M54.16 Acute lumbar radicul opathy Modified On:05/27/2023U Status:confirmed G47.419 Narcolepsy Modified On:05/27/2023U Status:confirmed M79.7 Fibromyalgia Modified On:05/27/2023U Status:confirmed J44.9 Acute chronic obstru ctive pulmonary disease with respiratory distress Modified On:05/27/2023U Status:confirmed K52.9 Acute colitis Modified On:05/27/2023U Status:confirmed F41.9 Anxiety Modified On:05/27/2023U Status:confirmed J02.0 Strep pharyngitis Modified On:07/12/2023U Status:confirmed K29.70 Gastritis Modified On:10/09/2023U Status:confirmed I20.1 Angina pectoris with documented spasm Modified On:10/18/2023U Status:confirmed I10 Essential (primary) hypertension Modified On:02/02/2024W/U Status:confirmed D32.9 Meningioma Modified On:10/25/2023U Status:confirmed E23.6 Other disorders of p ituitary gland Modified On:11/08/2023U Status:confirmed R10.11 Right upper quadrant abdominal pain Modified On:01/06/2024U Status:confirmed R10.32 Left lower quadrant abdominal pain Modified On:01/06/2024U Status:confirmed K58.9 Irritable bowel Modified On:04/30/2024U Status:confirmed K21.9 GERD without esophag itis Modified [...] it been since you last smoked??5-10 years D rug/Alcohol: A VLADIMIR-C (Standard) D id you have a drink containing alcohol in the past year? N o P oints 0 I nterpretation N egative * Medications: T akingAlbuterol Sulfate (2.5 MG/3ML) [...] every 4 hrs , Notes to Pharmacist: PRNDiscontinuedlevoFLOXacin 750 MG Tablet 1 tablet Orally Once a day predniSONE 20 MG Tablet 3 tablets Orally Once a day Medication List reviewed and reconciled with the patientDiscontinued levoFLOXacin 750 MG Tablet 1 tablet Orally Once a day Discontinued predniSONE 20 MG Tablet 3 tablets Orally Once a day Medication List reviewed and reconciled with the patient * Allergies: N .K.D.A.no[Allergies Verified] Objective: * Vitals: W t:151.0lbs, Ht: 63 in, BP:122/72mm Hg, BMI:26.75Index, Ht-cm: 160.02 cm, Wt-k.49 kg. * Examination: P hysical Exam: GENERAL: w ell developed, well nourished, in no acute distress. HEAD: n ormocephalic/atraumatic. EYES: p upils equal, round and reactive to light, conjunctivae and sclerae normal. EARS: n o deformity or lesion of external ear, canals and TM appear normal bilaterally, TM's intact, not inflamed with normal light reflex, hearing grossly normal to conversational speech. NOSE: n o deformity, discharge, inflammation, or lesions.? MOUTH: m ucous membranes moist, normal oropharynx and posterior pharynx without lesions or exudates, tongue normal, dentition normal. NECK: n radha supple, no masses or palpable cervical nodes, trachea midline, thyroid without nodules, masses, tenderness, or enlargement. CHEST: n o chest wall deformity, no chest wall tenderness.? LUNGS: n ormal respiratory effort and clear to auscultation, no wheezes, rales, or rhonchi, good air exchange. CARDIO: r egular rate and rhythm, normal S1 and S2, nor murmur, rub, or gallop. PULSES: n ormal capillary refill. ABDOMEN: s oft, non-distended, non-tender, no masses. MUSCULOSKELETAL: n o deformity or scoliosis noted, normal range of motion, joints normal, no erythema, edema, effusion, or ecchymosis. EXTREMITY: n o clubbing, cyanosis, edema, or deformity with normal ROM in both upper and lower bilateral extremities. NEUROLOGIC: g rossly normal. SKIN: n o rashes, ulcerations, or suspicious lesions. LYMPH NODES: n o cervical adenopathy, nodes normal. MENTAL STATUS: a lert and oriented x3, normal mood and affect. Assessment: * Assessment: 1. C OPD (chronic obstructive pulmonary disease) - J44.9 (Primary) 2 . F ibromyalgia - M79.7 3 . B enign essential HTN - I10 4 . M eningioma - D32.9 Plan: * Treatment: 2. F ibromyalgia L AB: HEMOGLOBIN A1C (GLYCO) L AB: IRON, TOTAL L AB: LIPID PANEL (CHOL/TRIG/HDL/LDL) L AB: STOOL OCCULT BLOOD L AB: THYROID PANEL (T4/TSH/FREE T3) L AB: CMP (COMP MET HINES) w/eGFR CKD-EPI L AB: CBC WITH DIFF 3. B enign essential HTN L AB: HEMOGLOBIN A1C (GLYCO) L AB: IRON, TOTAL L AB: LIPID PANEL (CHOL/TRIG/HDL/LDL) L AB: STOOL OCCULT BLOOD L AB: THYROID PANEL (T4/TSH/FREE T3) L AB: CMP (COMP MET HINES) w/eGFR CKD-EPI L AB: CBC WITH DIFF 4. M eningioma L AB: HEMOGLOBIN A1C (GLYCO) L AB: IRON, TOTAL L AB: LIPID PANEL (CHOL/TRIG/HDL/LDL) L AB: STOOL OCCULT BLOOD L AB: THYROID PANEL (T4/TSH/FREE T3) L AB: CMP (COMP MET HINES) w/eGFR CKD-EPI L AB: CBC WITH DIFF * Procedure Codes: * Preventive Medicine: Screenings/Counseling: B [place] ACTION PLAN Above Normal BMI Follow-up D ietary management education, guidance, and counseling F ALL RISK SCREENING Fall Risk Assessment: N o falls in the past year * * Sign off status: Completed Visit Status: C HK (Check Out) true * Provider: Korina Aleman ([facility])MD Date: 0 02/05/2025 Generated for Printi ng/Faxing/eTransmitting on: 0 02/26/2025 09:53 AM EDT History and Physical Notes * Examination Category Sub-Category Detail Notes Category Not es Physical Exam GENERAL: well developed, well nourished, in no acute distress HEAD: normocephalic/atraum atic EYES: pupils equal, round and reactive to light, conjunctivae and sclerae normal EARS: no deformity or lesi on of external ear, canals and TM appear normal bilaterally, TM's intact, not inflamed with normal light reflex, hearing grossly normal to conversational speech NOSE: no deformity, discha rge, inflammation, or lesions MOUTH: mucous membranes [place] st, normal oropharynx and posterior pharynx without lesions or exudates, tongue normal, dentition normal NECK: neck supple, no mass es or palpable cervical nodes, trachea midline, thyroid without nodules, masses, tenderness, or enlargement CHEST: no chest wall deform ity, no chest wall tenderness LUNGS: normal respiratory e ffort and clear to auscultation, no wheezes, rales, or rhonchi, good air exchange CARDIO: regular rate and rhy thm, normal S1 and S2, nor murmur, rub, or gallop PULSES: normal capillary ref ill ABDOMEN: soft, non-distended, non-tender, no masses RECTAL: MUSCULOSKELETAL: no deformity or scol iosis noted, normal range of motion, joints normal, no erythema, edema, effusion, or ecchymosis EXTREMITY: no clubbing, cyanosi s, edema, or deformity with normal ROM in both upper and lower bilateral extremities NEUROLOGIC: grossly normal SKIN: no rashes, ulceratio ns, or suspicious lesions LYMPH NODES: no cervical adenopat hy, nodes normal MENTAL STATUS: alert and oriented x 3, normal mood and affect
--- OUTSIDE RECORDS SUMMARY | 2025-02-05 09:16 | XMS_ITS ---
Author Organization [facility] in [place] Address [address] [place] [address] Care Team Providers Care Warehouse Helper Name Role Phone Lennox Aleman Primary Care Provider [phone] REASON FOR VISIT update Encounters Encounter Location Date Provider Diagnosis [facility] [address] [place] [address] 02/05/2025 Lennox Aleman Plan Of Treatment No Information Progress Notes * Sherie CHEN JDOB: 7 (69 yo F)Acc No.[id number]:02/05/2025 Patient: Cora JTNandoSherie :1955 A ge:69 Y S ex:Female Address:[address] [facility], [place], [address] * true * Date: Generated for Amani jorge/Facharlyg/eTransmitting on: 0 02/26/2025 09:54 AM EDT
--- OUTSIDE RECORDS SUMMARY | 2025-02-26 09:53 | XMS_ITS | Patient Health Record ---
Author Organization [facility] in [place] Address [address] [place] [address] Care Team Providers Care Night Stocker Name Role Phone Lennox Aleman Primary Care Provider [phone] Allergies No Known Allergies Results Component Value Reference Range Notes LAB TESTING Reviewed date:05/10/2024 10:19:03 PM Interpretation: Performing Lab: Notes/Report: [id number] Growth Hormone [facility] , Miscellaneous Test COMMENT . Test Ordered: [id number] Growth Hormone, Serum Growth Hormone, Serum 0.4 ng/mL Reference Range: 0.0-10.0 Performed at: - [facility] [address] [id number] Act English Tutor: Yanique Storey MD, Phone: [phone] Performed at: - [facility] [address] [id number] Act English Tutor: Eugene Ricketts PhD, Phone: [phone] Performing Lab: see note - [facility] LB LIPID PROFILE Reviewed date:05/07/2024 09:00:18 PM Interpretation: Performing Lab: Notes/Report: [facility] , Triglycerides 53 <=150 mg/dL Cholesterol 242 <=200 mg/dL HDL Cholesterol 76 40-60 mg/dL > or =60 mg/dl - LOW CARDIOVASCULAR RISK <40 mg/dl - HIGH CARDIOVASCULAR RISK LDL Cholesterol Calculated 156.0 <100 mg/dl OPTIMAL 100-129 mg/dl NEAR OR ABOVE OPTIMAL 130-159 mg/dl BORDERLINE HIGH 160-189 mg/dl HIGH >190 mg/dl VERY HIGH VLDL CHOLESTEROL 10.6 Chol HDL Ratio 3.2 3.3 - 4.4 LOW RISK 4.4 - 7.1 AVERAGE RISK 7.1 - 11.0 MODERATE RISK >11.0 HIGH RISK Performing Lab: see note - [facility] LB PROLACTIN Reviewed date:05/10/2024 10:19:03 PM Interpretation: Performing Lab: Notes/Report: [facility] , Prolactin 5.2 3.6-25.2 ng/mL Performed at: [address] [id number] Act English Tutor: Eugene Ricketts PhD, Phone: [phone] Performing Lab: see note [facility] LB Cortisol Reviewed date:05/10/2024 10:19:03 PM Interpretation: Performing Lab: Notes/Report: [facility] , Cortisol 8.9 6.2-19.4 ug/dL Please Note: The reference interval and flagging for this test is for an AM collection. If this is a PM collection please use: Cortisol PM: 2.3-11.9 Performing Lab: see note [facility] LB Luteinizing Hormone(LH) Reviewed date:05/10/2024 10:19:03 PM Interpretation: Performing Lab: Notes/Report: [facility] , Luteinizing Hormone(LH) 17.6 7.7-58.5 mIU/mL Adult Female Range Follicular phase 2.4 - 12.6 Ovulation phase 14.0 - 95.6 Luteal phase 1.0 - 11.4 Postmenopausal 7.7 - 58.5 Performing Lab: see note [facility] FSH Reviewed date:05/10/2024 10:19:03 PM Interpretation: Performing Lab: Notes/Report: [facility] , FSH 55.5 25.8-134.8 mIU/mL Adult Female Range Follicular phase 3.5 - 12.5 Ovulation phase 4.7 - 21.5 Luteal phase 1.7 - 7.7 Postmenopausal 25.8 - 134.8 Performing Lab: see note [facility] CBC AUTO DIFF Reviewed date:11/29/2024 03:22:35 PM Interpretation: Performing Lab: Notes/Report: [facility] , White Blood Count 4.6 4.0-11.0 10 3/uL Red Blood Count 4.22 4.20-5.40 10 6/uL Hemoglobin 12.4 12.0-16.0 g/dL Hematocrit 38.1 36.0-48.0 % Mean Corpuscular Volume 90.3 81.0-99.0 fL Mean Corpuscular Hemoglobin 29.4 26.7-34.0 pg Mean Corpuscular HGB Conc 32.5 29.9-35.2 g/dL Red Cell Distribution Width 12.3 11.0-15.0 % Platelet Count 267 150-450 10 3/uL Mean Platelet Volume 10.4 9.5-13.5 fL Neutrophils Percent Auto 48.0 43.0-75.0 % Lymphocytes Percent Auto 43.1 20.5-60.0 % Monocytes Percent Auto 5.2 1.7-12.0 % Eosinophils Percent Auto 2.2 0.9-7.0 % Basophils Percent Auto 1.5 0.2-2.0 % Immature Granulocytes Pct Auto 0.0 0.0-0.5 % Neutrophils Absolute Auto 2.2 1.4-6.5 10 3/uL Lymphocytes Absolute Auto 2.0 1.2-3.8 10 3/uL Monocytes Absolute Auto 0.2 0.3-0.8 10 3/uL Eosinophils Absolute Auto 0.1 0.0-0.7 10 3/uL Basophils Absolute Auto 0.1 0.0-0.1 10 3/uL Immature Granulocytes Abs Auto 0.00 0.00-0.03 10 3/uL Performing Lab: see note - [facility] Erythrocyte Sedimentation Ra te Reviewed date:11/29/2024 03:22:35 PM Interpretation: Performing Lab: Notes/Report: [facility] , Erythrocyte Sedimentation Rate 11 <=30 mm/hr Performing Lab: see note - [facility] LB HIV Ab/p24 Ag with Reflex Reviewed date:11/29/2024 03:22:35 PM Interpretation: Performing Lab: Notes/Report: [facility] , HIV Ab/p24 Ag Screen Non Reactive Non Reactive HIV-1/HIV-2 antibodies and HIV-1 p24 antigen were NOT detected. There is no laboratory evidence of HIV infection. HIV Negative Performed at: [facility] [address] [id number] Act English Tutor: Eugene Ricketts PhD, Phone: [phone] Performing Lab: see note LC - [facility] LB IGF-1 Reviewed date:05/10/2024 10:19:03 PM Interpretation: Performing Lab: Notes/Report: [facility] , IGF-1 85 52-196 ng/mL Performed at: [address] [id number] Act English Tutor: Yanique Storey MD, Phone: [phone] Performing Lab: see note [facility] ACTH, Plasma Reviewed date:05/10/2024 10:19:03 PM Interpretation: Performing Lab: Notes/Report: [facility] , ACTH, Plasma 31.8 7.2-63.3 pg/mL ACTH reference interval for samples collected between 7 and 10 AM. Performed at: [address] [id number] Act English Tutor: Eugene Ricketts PhD, Phone: [phone] Performing Lab: see note [facility] TSH Reviewed date:05/07/2024 09:00:18 PM Interpretation: Performing Lab: Notes/Report: [facility] , Thyroid Stimulating Hormone 0.238 0.358-3.740 u IU/mL Performing Lab: see note [facility] PROF CHEM 8 (BAS METB) Reviewed date:05/07/2024 09:00:18 PM Interpretation: Performing Lab: Notes/Report: [facility] , Sodium 141 136-145 mmol/L Potassium 3.8 3.5-5.1 mmol/L Chloride 105 98-107 mmol/L Carbon Dioxide 26.6 21.0-32.0 mmol/L Anion Gap 13.2 Glucose 89 74-106 mg/dL Blood Urea Nitrogen 10.0 7.0-18.0 mg/dL Creatinine 0.65 0.55-1.02 mg/dL Estimated GFR ( Iesha >60 >=60 Estimated GFR (Non- Keysha >60 >=60 BUN Creatinine Ratio 15.4 Calcium 9.2 8.5-10.1 mg/dL Performing Lab: see note - [facility] FREE T4 Reviewed date:05/07/2024 09:00:18 PM Interpretation: Performing Lab: Notes/Report: [facility] , Free T4 1.00 0.76-1.46 ng/dL Performing Lab: see note ML - [facility] LB TSH Reviewed date:11/29/2024 03:22:35 PM Interpretation: Performing Lab: Notes/Report: [facility] , Thyroid Stimulating Hormone 0.274 0.358-3.740 u IU/mL Performing Lab: see note ML - [facility] LB PROF 14(COMP METB) Reviewed date:11/29/2024 03:22:35 PM Interpretation: Performing Lab: Notes/Report: [facility] , Sodium 143 136-145 mmol/L Potassium 3.6 3.5-5.1 mmol/L Chloride 106 98-107 mmol/L Carbon Dioxide 28.6 21.0-32.0 mmol/L Anion Gap 12.0 Glucose 91 74-106 mg/dL Blood Urea Nitrogen 12.0 7.0-18.0 mg/dL Creatinine 0.85 0.55-1.02 mg/dL Estimated GFR ( Iesha >60 >=60 mL/min/1.73m 2 Estimated GFR (Non- Keysha >60 >=60 mL/min/1.73m 2 BUN Creatinine Ratio 14.1 Calcium 9.5 8.5-10.1 mg/dL Bilirubin Total 0.4 0.2-1.0 mg/dL Aspartate Amino Transferase 16 15-37 U/L Alanine Aminotransferase 12 14-59 U/L Alkaline Phosphatase 79 46-116 U/L Total Protein 7.5 6.4-8.2 g/dL Albumin Level 4.1 3.4-5.0 g/dL Globulin 3.4 Albumin Globulin Ratio 1.2 Performing Lab: see note ML - [facility] LB CRP Reviewed date:11/29/2024 03:22:35 PM Interpretation: Performing Lab: Notes/Report: [facility] , C Reactive Protein <0.50 <=0.50 mg/dL Performing Lab: see note ML - [facility] LB Calprotectin, Fecal Reviewed date:11/30/2024 08:24:19 PM Interpretation: Performing Lab: Notes/Report: [facility] , Calprotectin, Fecal <5 0-120 ug/g Concentration Interpretation Follow-Up < 5 - 50 ug/g Normal None >50 -120 ug/g Borderline Re-evaluate in 4-6 weeks >120 ug/g Abnormal Repeat as clinically indicated Performed at: [facility] [address] [id number] Act English Tutor: Yanique Storey MD, Phone: [phone] Performing Lab: see note [facility] LB Celiac Disease Comprehensive Reviewed date:11/30/2024 08:24:19 PM Interpretation: Performing Lab: Notes/Report: [facility] , Deamidated Gliadin Abs, IgA 3 0-19 units Negative 0 - 19 Weak Positive 20 - 30 Moderate to Strong Positive >30 Deamidated Gliadin Abs, IgG 2 0-19 units Negative 0 - 19 Weak Positive 20 - 30 Moderate to Strong Positive >30 t-Transglutaminase (tTG) IgA <2 0-3 U/mL Negative 0 - 3 Weak Positive 4 - 10 Positive >10 Tissue Transglutaminase (tTG) has been identified as the endomysial antigen. Studies have demonstr- ated that endomysial IgA antibodies have over 99% specificity for gluten sensitive enteropathy. t-Transglutaminase (tTG) IgG 3 0-5 U/mL Negative 0 - 5 Weak Positive 6 - 9 Positive >9 Endomysial Antibody IgA Negative Negative Immunoglobulin A, Qn, Serum 101 87-352 mg/dL Performed at: [facility] [address] [id number] Act English Tutor: Eugene Ricketts PhD, Phone: [phone] Performing Lab: see note [facility] LB Reason For Referral Diagnosis 1 Irritable bowel (K58 .9) Diagnosis 2 Right upper quadrant abdominal pain (R10.11) Diagnosis 3 Left lower quadrant abdominal pain (R10.32) Referral Organization [facility] Referring Provider First Name Lennox Referring Provider Last Name Ash Referring Provider Speciality Family Med icine Referred Provider FPG, Gastroenterolog y Referred Provider Specialty Gastroentero logy Referral Priority Routine Medications Medication SIG (Take, Route, Frequency, Duration) Notes Start Date End Date Status Levsin/SL 0.125 MG 1 tablet under the t ongue and allow to dissolve as needed Sublingual AC and HS 10/09/2023 Active Albuterol Sulfate (2.5 MG/3ML) 0.083% 3 [...] a day for 30 day(s) 02/05/2025 Active Melatonin PRN Active Ventolin HFA 108 (90 Base) MCG/ACT 2 puff as needed Inhalation every 4 hrs PRN Active Social History Tobacco Use: Social History Observation Description Date Details (start date - stop date) Former Smoker 09/16/1972 - 09/16/2017 Tobacco Use/Smoking Question Answer Notes Patient is a former smoker When did you start smoking? 09/16/1972 When did you stop smoking? 09/16/2017 How long has it been since you last smoked? 5-10 years Alcohol Screen (Audit-C) Question Answer Notes Did you have a drink containing alcohol in the p ast year? No Points 0 Interpretation Negative AUDIT-C (Standard) Question Answer Notes Did you have a drink containing alcohol in the p ast year? 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) Active confirmed Problem 38096898 Angina pectoris with documented spasm (I20.1) Active confirmed Problem Fibromyalgia (085250411) Fibromyalgia (M79.7) Active confirmed Problem COPD - Chronic obstructive pulmonary disease (99364644) COPD (chronic obstructive pulmonary disease) (J44.9) Active confirmed Problem Gastroesophageal reflux disease (274971631) GERD (gastroesophagea l reflux disease) (K21.9) Active confirmed Problem Dyslipidemia (089261257) Dyslipidemia (E78.5) Active confirmed Problem Anxiety (76160648) Anxiety (F41.9) Active confi rmed Problem Essential hypertension (64056670) Benign essential HTN (I10) Active confirmed Problem Gastroesophageal reflux disease (551901514) GERD without esophagitis (K21.9) Active confirmed Problem Gastritis (0638073) Gastritis (K29.70) Active confirmed Problem Narcolepsy (46905657) Narcolepsy (G47.419) Active confirmed Problem Benign neoplasm of cerebral meninges (61213780) Meningioma (D32.9) Active confirmed Problem Fibromyalgia (974133288) Fibromyalgia (M79.7) Active confirmed Problem Streptococcal sore throat (disorder) (06308003) Strep pharyngitis (J02.0) Active confirmed Problem Right upper quadrant pain (801892087) Right upper quadrant abdominal pain (R10.11) Active confirmed Problem Non-infective enteritis and colitis (316871790) Acute colitis (K52.9) Active confirmed Problem Irritable bowel (05003617) Irritable bowel (K58.9) Active confirmed Problem Chronic obstructive pulmonary disease (37712435) Acute chronic obstructive pulmonary disease with respiratory distress (J44.9) Active confirmed Problem Lumbar radiculopathy (507874626) Acute lumbar radiculopathy (M54.16) Active confirmed Problem Prinzmetal angina (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) Angina pectoris, variant (I20.1) Active confirmed Problem Left lower quadrant pain (065425716) Left lower quadrant abdominal pain (R10.32) Active confirmed Problem Gastroesophageal reflux disease with esophagitis (disorder) (019839947) Gastro-esophagea l reflux disease with esophagitis, without bleeding (K21.00) Active confirmed Vital Signs Temperature 98.9 degrees Fahrenheit 08/07/2024 Blood pressure diastolic 72 mm Hg 02/05/2025 Height 63 in 02/05/2025 Blood pressure systolic 122 mm Hg 02/05/2025 Weight 151.0 lbs 02/05/2025 BMI 26.75 kg/m2 02/05/2025 Procedures Procedure Date Ordered Date Performed Result Body Sit e Colonoscopy 04/22/2024 undefined Encounters Encounter Location Date Provider Diagnosis [facility] [address] [place] [address] 04/06/2024 Lennox Aleman [facility] [address] [place] [address] 05/04/2024 Lennox Aleman Irritable bowel K58 .9 ; Left lower quadrant abdominal pain R10.32 and Right upper quadrant abdominal pain R10.11 [facility] [address] [place] [address] 06/11/2024 Lennox Aleman [facility] [address] [place] [address] 02/05/2025 Lennox Aleman [facility] [address] [place] [address] 08/07/2024 Lennox Aleman Acute bronchitis, unspecified organism J20.9 and COPD (chronic obstructive pulmonary disease) J44.9 [facility] [address] [place] [address] 04/30/2024 Lennox Hoy Irritable bowel K58. 9 and GERD without esophagitis K21.9 [facility] [address] [place] [address] 02/05/2025 Lennox Aleman COPD (chronic obstructive pulmonary disease) J44.9 ; Fibromyalgia M79.7 ; Benign essential HTN I10 and Meningioma D32.9 Assessments Encounter Date Diagnosis (ICD Code) Assessment Notes Treatment Notes Treatment Clinical Notes Section Notes 04/30/2024 Irritable bowel (ICD-10 - K58.9) disucssed may have anee fo xifaxan 04/30/2024 GERD without esophagitis (ICD-10 - K21.9) 08/07/2024 Acute bronchitis, unspecified organism (ICD-10 - J20.9) Rest and drink more liquids, especially water. You may use a humidifier or vaporizer to help keep the drainage moist. Ywoa-ylb-qlurofq Nasal Saline may help the stuffy and runny nose. Use Ibuprofen and or Tylenol as needed for fever, chills, body aches or pain. Children 5 years old should not be given dayo-drv-uvmjspr cough and cold medications such as guaifenesin and dextromethorphan. If you're over age 5, you may try dwga-vob-odqspvz cold medications such as guaifenesin and dextromethorphan, [...] obstructive pulmonary disease) (ICD-10 - J44.9) 02/05/2025 COPD (chronic obstructive pulmonary disease) (ICD-10 - J44.9) 02/05/2025 Fibromyalgia (ICD-10 - M79.7) 05/04/2024 Irritable bowel (ICD-10 - K58.9) 05/04/2024 Left lower quadrant abdominal pain (ICD-10 - R10.32) 05/04/2024 Right upper quadrant abdominal pain (ICD-10 - R10.11) 02/05/2025 Benign essential HTN (ICD-10 - I10) 02/05/2025 Meningioma (ICD-10 - D32.9) Plan Of Treatment Pending Test Test Name Order Date CMP (COMPLETE METABOLIC PANEL) 4 HEMOGLOBIN A1C (GLYCO) 10/09/2023 HEMOGLOBIN A1C (GLYCO) 02/05/2025 IRON, TOTAL 10/09/2023 IRON, TOTAL 02/05/2025 LIPID PANEL (CHOL/TRIG/HDL/LDL) 10/09/19 24 LIPID PANEL (CHOL/TRIG/HDL/LDL) 02/06/20 25 CBC WITH DIFF 10/09/2023 VITAMIN D, 25 LEVEL (TOTAL) 10/09/2023 MRI Brain w/wo contrast * 10/25/2023 Urinalysis Microscopic 10/09/2023 NM HIDA Hepatobiliary Imaging W EF 01/12 STOOL OCCULT BLOOD 02/05/2025 STOOL OCCULT BLOOD 10/09/2023 CULTURE URINE 10/09/2023 US ABD 01/06/2024 XR ABD FLAT UP_PA CH 10/09/2023 XR DEXA BONE DENSITY 02/05/2025 THYROID PANEL (T4/TSH/FREE T3) 5 THYROID PANEL (T4/TSH/FREE T3) 4 MM screening mammo BI 02/05/2025 CMP (COMP MET HINES) w/eGFR CKD-EPI 2024 CBC WITH DIFF 02/05/2025 Insurance Providers Payer Name Payer Address Payer Phone Subscriber Number Group Number Insured Name Patient Relationship to Insured Coverage Start Date Coverage End Date [place] [address] [place] [address] [id number] Sherie Cunningham Self - patient is the insured 2 [place] 2[place] [address] [facility] [place] [place] [id number] Sherie Cunningham Self - patient is the insured 2 Medical (General) History Medical History History ICD Code Anxiety F41.9 Colitis K52.9 COPD (chronic obstructive pulmonary dise ase) J44.9 COVID-19 U07.1 Cervical disc disease M50.90 Fibromyalgia M79.7 GERD (gastroesophageal reflux disease) K 21.9 Hyperlipidemia E78.5 Hypertension I10 Insomnia G47.00 Lumbar radiculopathy M54.16 Meningioma D32.9 Narcolepsy G47.419 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
--- OUTSIDE RECORDS SUMMARY | 2025-02-26 09:54 | XMS_ITS | Referral Summary ---
Author Organization [facility] Address [address] [place] [address] Care Team Providers Care Diesel Motor Mechanic Name Role Phone Joaquin Aleman MD Primary Care Provider [phone] Encounters Date Type Department Care Team Description 02/05/2025 Telephone [facility] Heart at [facility] [address] [place] [address] Nasrin Orozco MA 02/01/2025 Refill [facility] [address] [place] [address] Jarad Almazan MD Essential (primary) hypertension from Last 3 Months Allergies Active Allergy Reactions Criticality Noted Date Comments Amlodipine Swelling 10/17/2023 Coconut 08/27/2022 Onion 08/27/2022 Medications albuterol 90 mcg/actuation inhaler INHALE 2 PUFFS BY MOUTH 4 TIMES A DAY Active nitroglycerin (Nitrostat) 0.3 mg SL tabletIndications: Prinzmetal's angina Place 1 tablet (0.3 mg) under the tongue every 5 (five) minutes if needed for chest pain. 100 tablet 1 02/26/20 Active pantoprazole (ProtoNix) 40 mg EC tablet Take 40 mg by mouth before breakfast. Do not crush, chew, or split. Active hyoscyamine 0.125 mg dissolvable tablet Take 0.125 mg by mouth every 4 (four) hours if needed. Active cholecalciferol, vitamin D3, 50 mcg (2,000 unit) capsule Take 2,000 Units by mouth in the morning. Active famotidine (Pepcid) 40 mg tablet Take 40 mg by mouth. 02/12/20 24 Active isosorbide mononitrate ER (Imdur) 30 mg 24 hr tabletIndications: Prinzmetal angina,Primary hypertension Take 1 tablet (30 mg) by mouth once daily in the morning. Do not crush or chew. 90 tablet 3 05/08/20 24 025 Active ezetimibe (Zetia) 10 mg tabletIndications: Mixed hyperlipidemia Take 1 tablet (10 mg) by mouth in the morning. 90 tablet 3 05/08/20 24 025 Active lisinopril 5 mg tabletIndications: Essential (primary) hypertension TAKE 1 TABLET BY MOUTH EVERY DAY 90 tablet 3 02/02/20 25 Active lisinopril 5 mg tabletIndications: Essential (primary) hypertension TAKE 1 TABLET BY MOUTH EVERY DAY 90 tablet 3 04/01/20 24 025 Discontinued Active Problems Problem Noted Date Diagnosed Date BMI 29.0-29.9,adult 05/06/2024 Dyslipidemia 05/06/2024 History of transient ischemic attack 05/06/2024 Lumbar radiculopathy 05/06/2024 Overweight 05/06/2024 Ulcerative colitis 05/06/2024 Dizziness 04/15/2024 Overview (05/06/2024): history of dizziness consistent with vertigo. She is having some increase in symptoms that occur in episodes and described as spinning sensation and sometimes lightheadedness sensation that can occur regardless of position change. She is apprehensive about getting carotid ultrasound and TCD due to cost. Memory change 04/15/2024 Overview (05/06/2024): The patient states that she is having short term memory issues. She states that she is not sleeping well and is under stress which could likely be contributing. MOCA 12/31/2022 was 26/30. Memory is stable. Migraine 04/15/2024 Overview (05/06/2024): Headaches made up of migraines that have greatly improved once she was taken off her heart meds. No further migraines and infrequent headaches. She has untreated HARDEEP which could contribute to some of her headaches. She previously was on Elavil which caused weight gain and she did not tolerate Zonegran. She did not take Trileptal due to side effects. She has noted slight benefit with Aimovig, but is no longer on this due to improvement in symptoms. Relpax does not completely abort migraine, nurtec and imitrex were ineffective in the past. Ubrelvy is effective. Migraines remain infrequent. 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 She was following with Dr. Johnson in the past but was told that she did not require further follow up. Labwork from 12/04 was unremarkable for elevated hormone levels. MRI of the brain from 11/2020 revealed stable findings of her pituitary mass. 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 She is following with endocrinology and sees them next month. 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 Pituitary mass 04/15/2024 Anxiety 08/27/2022 Chest pain 08/27/2022 Chronic obstructive lung disease 08/27/2022 Dyspnea 08/27/2022 Narcolepsy 08/27/2022 Palpitations 08/27/2022 Primary fibromyalgia syndrome 08/27/2022 Tenosynovitis 08/27/2022 Hypertensive disorder 06/02/2018 Assessment & Plan (10/17/2023 12:49 PM EST): Hypertension is elevated in office, she is adamant that b/p is well controlled at home. Staff to call pt in 1-2 weeks to review b/p log. Continue lisinopril 5 mg daily- she reports a dry cough but states this is r/t her lung disease- we discussed side effect of lisinopril can be cough and she voiced understanding. Prinzmetal angina Assessment & Plan (10/17/2023 12:41 PM EST): Stable continue all medications Hyperlipidemia Assessment & Plan (10/17/2023 12:50 PM EST): Lipids elevated and pt prefers to start with diet and lifestyle modifications Will repeat lipid level in 3 months to re-evaluate Social History Tobacco Use Types Packs/Day Years Used Date Smoking Tobacco: Former Cigarettes Passive Smoke Exposure: Current Smokeless Tobacco: Never Tobacco Cessation:Counseling Given: Not Answered Alcohol Use Standard Drinks/Week Comments Not Currently 0 (1 standard drink = 0.6 oz pur e alcohol) [place] Safety & Environment Answer Date Rec orded Fear of Current or Ex-Partner Not on file Emotionally Abused Not on file 11/07/2023 Physically Abused Not on file 11/07/2023 Sexually Abused Not on file 11/07/2023 Physically or Sexually Abused Not on file Comments Unknown Sex and Gender Information Value Date Recorded Sex Assigned at Not on file Legal Sex Female 10:20 PM EDT Gender Identity Not on file Sexual Orientation Not on file Last Filed Vital Signs Vital Sign Reading Time Taken Comments Blood Pressure 153/87 05/08/2024 1:50 PM EDT Pulse 74 05/08/2024 1:50 PM EDT Temperature - - Respiratory Rate - - Oxygen Saturation 96% 05/08/2024 1:50 PM EDT Inhaled Oxygen Concentration - - Weight 69.4 kg (153 lb) 05/08/2024 1:50 PM EDT Height 160 cm (5' 3 ) 05/08/2024 1:50 PM EDT Body Mass Index 27.1 05/08/2024 1:50 PM EDT Plan of Treatment Upcoming Encounters Date Type Department Care Team (Late st Contact Info) Description 03/15/2025 1:00 PM EDT Office Visit [facility] [address] [place] [address] Jarad Almazan MD [address] [facility] [place] [phone] Insurance MEDICARE [place]ICAID [place] Care Teams Diesel Motor Mechanic Relationship Specialty Start Date End Date Joaquin Aleman MD [address] [place] [address] PCP - General 08/27/22
--- OUTSIDE RECORDS SUMMARY | 2025-02-26 09:54 | XMS_ITS | Clinical Summary ---
Author Organization [facility] Address [address] [place] [address] Care Team Providers Care Lead Pl Sql Developer Name Role Phone Joaquin Aleman MD Primary Care Provider [phone] Allergies Active Allergy Reactions Criticality Noted Date Comments Amlodipine Swelling 10/17/2023 [place]oconut 08/27/2022 Onion 08/27/2022 Medications albuterol 90 mcg/actuation inhaler INHALE 2 PUFFS BY MOUTH 4 TIMES A DAY Active nitroglycerin (Nitrostat) 0.3 mg SL tabletIndications: Prinzmetal's angina Place 1 tablet (0.3 mg) under the tongue every 5 (five) minutes if needed for chest pain. 100 tablet 1 02/26/20 23 Active pantoprazole (ProtoNix) 40 mg EC tablet [...] unchanged from prior study, left cerebellar meningioma [id number]. She is following with endocrinology and sees [...] lipid level in 3 months to re-evaluate Encounters Date Type Department Care Team Description 02/05/2025 Telephone [facility] Heart at [facility] [address] [place] [address] Nasrin Orozco MA 02/01/2025 Refill [facility] [address] [place] [address] Jarad Almazan MD Essential (primary) hypertension from Last 3 Months Family History Medical History Relation Name Comments Coronary artery disease Father Diabetes Father Hyperlipidemia Father Hypertension Father Anemia Mother Breast cancer Mother Diabetes Mother Hyperlipidemia Mother Hypertension Mother Coronary artery disease Paternal Grandmother Stroke Paternal Grandmother Relation Name Status Comments Father Mother Paternal Grandmother Social History Tobacco Use Types Packs/Day Years [...] Description 03/15/2025 1:00 PM EDT Office Visit [facility] Heart at [facility] [address] [place] [address] Jarad Almazan MD [address] [place] [address] Health Maintenance Due Date Last Done Comments CT Colonography 1957 FIT-DNA 1957 FIT 1957 FOBT 1957 Medicare Annual Wellness (AWV) 1957 Sigmoidoscopy 1957 Depression Screening 1969 Pneumococcal Vaccine: 50+ Years (1 of 2 - PCV) 1976 Adult Tetanus 1979 Mammogram 1997 Zoster Vaccines (1 of 2) 2007 Fall Risk Screening 2022 COVID-19 Vaccine (1 - 2023-2 5 season) 2024 Influenza Vaccine (Season Ended) 2025 Colonoscopy 06/17/2029 06/17/2019, 12/06/2005 Colorectal Cancer Screening 06/17/2029 HIB Vaccines Aged Out No longer eligi ble based on patient's age to complete this topic HPV Vaccines Aged Out No longer eligi ble based on patient's age to complete this topic IPV Vaccines Aged Out No longer eligi ble based on patient's age to complete this topic Meningococcal B Vaccine Aged Out No l onger eligible based on patient's age to complete this topic Meningococcal Vaccine Aged Out No isabelle naomie eligible based on patient's age to complete this topic Rotavirus Vaccines Aged Out No longer eligible based on patient's age to complete this topic Insurance MEDICARE MEDICAID [place] Care Teams Lead Pl Sql Developer Relationship Specialty Start Date End Date Joaquin Aleman MD [address] [place] [place] [address] PCP - General 08/27/22
--- OUTSIDE RECORDS SUMMARY | 2025-02-26 10:10 | XMS_ITS | CCD ---
Author Organization [facility] CliniSysd Care Team Providers Care Seaming Inspector Name Role Phone Nichelle Bailey II Unavailable [...] Unavailable NICHOLAS, DR GARZA Primary Care Unavailable INCHOLAS, DR GARZA Consulting Unavailable BARRERA, DR YENI Sunshine Consulting Unavailable NICHOLAS, DR GARZA Primary Care Unavailable NICHOLAS, DR GARZA Admitting Unavailable NICHOLAS, DR GARZA Attending Unavailable NICHOLAS, DR GARZA Consulting Unavailable NICHOLAS, DR GARZA Primary Care Unavailable NICHOLAS, DR GARZA Attending Unavailable NICHOLAS, DR GARZA Admitting Unavailable AUDELIA UNGER Attending Unavailable VIKI BALL Consulting Unavailable AUDELIA UNGRE Admitting Unavailable NICHOLAS, DR GARZA Primary Care Unavailable AUDELIA UNGER Consulting Unavailable NICHOLAS, DR GARZA Admitting Unavailable NICHOLAS, DR GARZA Attending Unavailable NICHOLAS, DR GARZA Primary Care Unavailable NICHOLAS, DR GARZA Consulting Unavailable ZIMICHEAL, DR BARRY Shepherd Consulting Unavailable NICHOLAS, DR [...] SCHMID Attending Unavailable Unavailable Primary Care Provider UnavailGreg Grant MD Primary Care Provider [phone] Odalys SMALLWOOD, Haley Attending Provider [phone] Greg Aleman Primary Care Unavailable Asaad, Imad Attending Unavailable Asaad, Imad Admitting Unavailable Allergies Allergy Classification Reported Allergen(s) Allergy Type Date of Onset Reaction(s) Facility (2 sources) Coconut extract; Translations: [COCONUT] Drug Allergy 4 [facility] Repository (1 source) Misc-Food; Translations: [Misc-Food] Food allergy (disorder) 4 [facility] Repository (1 source) No Known Medication Allergies; Translations: [No Known Medication Allergies] Propensity to adverse reactions (disorder) [facility] Repository (1 source) amLODIPine; Translations: [AMLODIPINE] Drug Allergy 4 [facility] Repository (4 sources) Onion extract; Translations: [ONION] Drug Allergy 2 [facility] Repository (3 sources) Coconut extract Drug Allergy 4 [facility] Healthcare Medications Current Medications Medication Drug Class(es) Dates Sig (Normalized) Sig (Original) [id number] 200 actuat albuterol 0.09 mg/actuat metered dose inhaler (3 sources) beta2-Adrenergic Agonist take 1 puff(s) by inhalation every eight hours albuterol HFA 90 mcg/act inhaler Inhale 1 puff every 8 (eight) hours Active [id number] Rbn-Wqsv-Wjc-Asb-C (1 source) Osmotic Laxative, Vitamin C Start: 11-19-2024 take 1 dose by mouth once in the evening [id number] Zhm-Ucmq-Ymh-Asb- C (Plenvu) 140-9-5.2 gram powder in packet, sequential Active 140 ML PO Once 1 1 November 19, 2024 1:00am at 4:00 pm take first dose followed by 16 oz glass of liquid take second dose at 11:00 pm followed by a 16 oz glass of liquid aspirin 81 mg chewable tablet (5 sources) Platelet Aggregation Inhibitor, Nonsteroidal Anti-inflammatory Drug Start: 11-19-2024 take 2 tablets by mouth once daily Aspirin 81 mg tablet,chewable Active 2 TAB PO Daily November 19, 2024 1:00am FreeTextSi tablets Orally Once a day; Note: Source Status: Taking; Provider: Lynn Morales II ( ) Start: 05-28-2019 take 1 tablet by mouth once da valdo aspirin 81 mg oral tablet 81 mg = 1 tab(s), Oral, Daily Start Date: 05/28/19 Status: Ordered cholecalciferol 0.05 mg oral capsule (3 sources) Vitamin D take 1 capsule by mouth once daily cholecalciferol (Vitamin D-3) 50 MCG (1999 UT) capsule Take 2,000 Units by mouth Daily Active diclofenac sodium 0.01 mg/mg topical gel (3 sources) Nonsteroidal Anti-inflammatory Drug Start: 2021 Voltaren 1 % as directed Externally every 4 hours for 30 days Dec, Active 1 ml erenumab-aooe 70 mg/ml auto-injector (6 sources) Start: 2023 inject 1 mL by subcutaneous injection once erenumab (Aimovig) 70 MG/ML injection Indications: Migraine without aura and without status migrainosus, not intractable (CMS/HCC) Inject 1 mL (70 mg) under the skin every 28 (twenty-eight) days 1 mL 2 05/21/2024 Active Aimovig 70 MG/ML as directed Subcutaneous Active ezetimibe 10 mg oral tablet (1 source) Dietary Cholesterol Absorption Inhibitor Start: 11-19-2024 take 1 tablet by mouth once daily Ezetimibe 10 mg tablet Active 10 MG PO Daily November 19, 2024 1:00am famotidine 40 mg oral tablet (1 source) [...] mononitrate 30 mg extended release oral tablet (5 sources) Nitrate Vasodilator Start: 11-19-2024 take 1 tablet by mouth every twenty-four hours Isosorbide Mononitrate 30 mg tablet extended release 24 hr Active MG PO November 19, 2024 1:00am take 1 tablet by janiya th every twenty-four hours Isosorbide Mononitrate ER 30 MG 1 tablet in the morning Orally Once a day Active take 1 tablet by janiya th every twenty-four hours Isosorbide Mononitrate ER 120 MG 1 table t in the morning Orally Once a day Active lisinopril 5 mg oral tablet (8 sources) Angiotensin Converting Enzyme Inhibitor Start: 11-19-2024 take 1 tablet by mouth once daily Lisinopril 5 mg tablet Active 5 MG PO Daily November 19, 2024 1:00am Start: 04-01-2024 take 1 tablet by janiya th once daily lisinopril 5 MG tablet Take [...] Classification Problem Date Documented Da te Episodic/Chronic Abdominal pain (6 sources) Indigestion; Translations: [Epigastric pain] Onset: 11-19-2024 Episodic Anxiety disorders (1 source) Anxiety 02-12-2024 Chronic Chronic obstructive pulmonary disease and bronchiectasis (1 source) Chronic obstructive lung disease 06-15-2019 Chronic Coronary atherosclerosis and other heart disease (2 sources) Angina pectoris with documented spasm; Translations: [Angina pectoris with documented spasm] Onset: 2 Chronic Disorders of lipid metabolism (3 sources) Dyslipidemia; Translations: [Mixed hyperlipidemia] Onset: 2 02-12-2024 Chronic Esophageal disorders (2 sources) Gastroesophageal reflux disease 02-12-2024 Chronic Essential hypertension (3 sources) Hypertensive disorder; Translations: [Essential (primary) hypertension] Onset: 8 02-12-2024 Chronic Gastritis and duodenitis (1 source) Gastritis 06-28-2019 Episodic Headache; including migraine (5 sources) Migraine; Translations: [Migraine, unspecified, not intractable, without status migrainosus] Onset: 4 04-15-2024 Chronic Nausea and vomiting (3 sources) Nausea; Translations: [Nausea] Onset: 5 11-19-2024 Episodic Noninfectious gastroenteritis (1 source) Colitis 05-28-2019 Episodic Osteoarthritis (20 sources) Osteoarthritis of right hip joint; Translations: [Unilateral primary osteoarthritis, right hip] Onset: 1 Resolved: 2 Chronic Other and unspecified benign neoplasm (4 sources) Benign neoplasm of cerebral meninges; Translations: [BENIGN NEOPLASM CEREBRAL MENINGES] Onset: 2 Chronic Other circulatory disease (1 source) History of transient ischemic attack 06-15-2019 Episodic Other connective tissue disease (1 source) Fibromyalgia 05-28-2019 Episodic Other connective tissue disease (1 source) Primary fibromyalgia syndrome 06-15-2019 Episodic Other endocrine disorders (3 sources) Pituitary mass; 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] Onset: 4 04-15-2024 Chronic Other gastrointestinal disorders (1 source) Finding of sensation of abdomen; Translations: [Other specified symptoms and signs involving the digestive system and abdomen] 11-19-2024 Episodic Other gastrointestinal disorders (1 source) Constipation alternates with diarrhea; Translations: [Other specified symptoms and signs involving the digestive system and abdomen] 11-19-2024 Episodic Other gastrointestinal disorders (1 source) Abdominal bloating; Translations: [Abdominal distension (gaseous)] 11-19-2024 Episodic Other gastrointestinal disorders (3 sources) Other specified symptoms and signs involving the digestive system and abdomen; Translations: [Abdominal pain, right upper quadrant] Onset: 5 11-19-2024 Episodic Other gastrointestinal disorders (2 sources) Abdominal distension (gaseous); Translations: [Flatulence, eructation, and gas pain] Onset: 5 11-19-2024 Episodic Other nervous system disorders (1 source) [...] Radiculopathy, lumbar region; Translations: [Lumbar radiculopathy] Onset: 2 Resolved: 2 Episodic Unclassified (3 sources) LOW BACK PAIN, UNSPECIFIED; Translations: [LOW BACK PAIN, UNSPECIFIED] Onset: 2 Unclassified (2 sources) CONTACT W/AND (SUSP) EXPOS COVID-19; Translations: [CONTACT W/AND (SUSP) EXPOS COVID-19] Onset: 2 Unclassified (1 source) COUGH, UNSPECIFIED; Translations: [COUGH, UNSPECIFIED] Onset: 2 Viral infection (1 source) COVID-19; Translations: [COVID-19] Onset: 2 Past or Other Problems Problem Classification Problem [...] of uncertain behavior of pituitary gland] Onset: 02-13-2023 Episodic Other aftercare (1 source) Other senior care (current) drug therapy; Translations: [OTH ASSISTED CURRENT DRUG THERAPY] Onset: 06-26-2022 Episodic Other [...] Test Name Value Interpretation Reference Range Facility CT abdomen pelvis w manjeet CT abdomen pelvis w [facility] [place] [address] CT Scan Report Signed Patient: Sherie Cunningham MR#: [id number] 89 : 1955 Acct:[id number] Age/Sex: 69 / F ADM Date: 12/10/24 Loc: CT Room: Type: [facility] Attending Dr: Haley Morrow MD Copies to: Haley Morrow MD Ordering Provider: Haley Morrow MD Date of Service: 12/10/24 CT/CT abdomen pelvis w con: R14.0 - Abdominal distension (gaseous) CT ABDOMEN AND PELVIS WITH INTRAVENOUS CONTRAST: CLINICAL HISTORY: Right-sided abdominal pain with nausea vomiting diarrhea for 6 months to 1 year. COMPARISON: None TECHNIQUE: Spiral images were obtained through the abdomen and pelvis following the administration of intravenous contrast. This CT exam was performed using one or more following dose reduction techniques: Automated exposure control, adjustment of the mA and/or kV according to patient size, or use of iterative reconstruction technique. FINDINGS: Lung Bases: [Mild bibasilar scarring.] Organs:Small liver cyst. Gallbladder portal vein pancreas spleen and adrenal glands all appear unremarkable. No enhancing renal mass or hydronephrosis. Subcentimeter low attenuating lesions involving the right kidney too small for adequate characterization. Abdominal aorta appears normal in caliber.[ GI: Stomach is grossly unremarkable. Small bowel appears nondilated. Appendix is normal. No acute colonic abnormality is seen.[ Pelvis:[Urinary bladder is grossly unremarkable. Uterus has been removed. No adnexal mass.] Peritoneum/Retroperitoneum:No free air or free fluid or lymphadenopathy.[ Abd wall/Bones:Abdominal wall demonstrates no acute findings. Osseous structures demonstrate degenerative change.[ CT/CT abdomen pelvis w con IMPRESSION: No acute process. Impression dictated by: Kev Chavez Jr., D.OBob12/10/2024 4:37 PM Dictation Location: [facility] Transcribed By: [facility] 12/10/24 1637 Dictated By: Kev Chavez Jr, DO 12/10/24 1634 Signed By: 12/10/24 1637 Normal [facility] Office Visiton 05-08-2024 Follow-up visit [id number] Sam Cunningham 1955 F Date Provider Department Center 05/08/2024 [facility] Family History Problem Relation Age of Onset Anemia Mother Breast cancer Mother Diabetes Mother Hypertension Mother Hyperlipidemia Mother Coronary artery disease Father Diabetes Father Hypertension Father Hyperlipidemia Father Stroke Paternal Grandmother Coronary artery disease Paternal Grandmother Family Status - Relation Status Age at Mother Father Paternal Grandmother Level of Service:76323 MT OFFICE/OUTPATIENT ESTABLISHED MOD MDM 30 MIN Normal [facility] Reminderson 04-23-2024 Reminders Reminders From: So Finley LPN To: N - Clinical; Sent: 04/23/2024 14:41:29 EDT Show up: 03/22/2034 07:00:00 EDT Subject: colonoscopy recall Due Date/Time: 04/22/2034 07:00:00 EDT Reminder/Recall Patient due for screening colonoscopy 04/22/2034. [facility] Consent for Procedure/Surger yon 03-11-2024 Consent for Procedure/Surge ry [id number] [facility] Facesheeton 03-11-2024 Facesheet [id number]#[id number] [facility] Ambulatory Visit Summaryon 0 03-10-2024 Ambulatory Visit [...] you for choosing us for your care. [facility] RAD - Ultrasound Reporton RAD - Ultrasound Report [id number] [facility] Physician Referralon 024 Physician Referral [id number]#[id number] [facility] Office Visiton 10-17-2023 Follow-up visit [id number] Sam Cunningham 1955 F Date Provider Department Center 10/17/2023 [facility] Family History Problem Relation Age of Onset Anemia Mother Breast cancer Mother Diabetes Mother Hypertension Mother Hyperlipidemia Mother Coronary artery disease Father Diabetes Father Hypertension Father Hyperlipidemia Father Stroke Paternal Grandmother Coronary artery disease Paternal Grandmother Family Status - Relation Status Age at Mother Father Paternal Grandmother Level of Service:89327 MT OFFICE/OUTPATIENT ESTABLISHED MOD MDM 30 MIN Normal [facility] ACTH, PLASMAon 10-30-2022 ACTH, Plasma 16.7 pg/mL Normal 7.2-63.3 [facility] Comment on above: Result Comment: ACTH reference interval for samples collected between 7 and 10 AM. Performed By: #### U AMIC #### [facility] [address] [place] [address] Dr. Annie Rain CORTISOLon 10-30-2022 Cortisol 4.7 ug/dL Normal [facility] Comment on above: Result Comment: Cortisol AM 6.2 - 19.4 Cortisol PM 2.3 - 11.9 Performed By: #### C ORTISO #### [facility] [address] [place] [address] Dr. Annie Rain FSHon 10-30-2022 FSH 57.8 mIU/mL Normal [facility] Comment on above: Result Comment: Adult Female: Follicular phase 3.5 - 12.5 Ovulation phase 4.7 - 21.5 Luteal phase 1.7 - 7.7 Postmenopausal 25.8 - 134.8 Performed By: #### L BCFSH #### [facility] [address] [place] [address] Dr. Annie Rain GROWTH HORMONEon 10-30-2022 Growth Hormone, Serum 1.5 ng/mL Normal 0.0-10.0 [facility] Comment on above: Performed By: #### UAMIC #### [facility] [address] [place] [address] Dr. Annie Rain VRBLSMI-NJLL-MNYADX-FACTOR 1 on 10-30-2022 Insulin-Like Growth Factor I 94 ng/mL Normal 57-202 [facility] Comment on above: Performed By: #### INSGF1 #### [facility] [address] [place] [address] Dr. nAnie Rain LUTEINIZING HORMONE (LH)on 0 10-30-2022 LH 22.1 mIU/mL Normal [facility] Comment on above: Result Comment: Adult Female: Follicular phase 2.4 - 12.6 Ovulation phase 14.0 - 95.6 Luteal phase 1.0 - 11.4 Postmenopausal 7.7 - 58.5 Performed By: #### L BCLH #### [facility] [address] [place] [address] Dr. Annie Rain PROLACTINon 10-30-2022 Prolactin 6.4 ng/mL Normal 4.8-23.3 [facility] Comment on above: Performed By: #### PROLAC #### [facility] [address] [place] [address] Dr. Annie Rain FREE T4on 10-29-2022 Free T4 [Mass/Vol] 1.01 ng/dL Normal 0.76-1.46 [facility] Comment on above: Performed By: #### FT4 #### [facility] [address] [place] [address] Dr. Annie Rain PROF CHEM 8 (BAS METB)on Anion gap [Moles/Vol] 11.4 mmol/L Normal [facility] Comment on above: Performed By: #### UAMIC #### [facility] [address] [place] [address] Dr. Annie Rain Calcium [Mass/Vol] 9.4 mg/dL Normal 8.5-10.1 [facility] Comment on above: Performed By: #### UAMIC #### [facility] [address] [place] [address] Dr. Annie Rain Chloride [Moles/Vol] 105 mmol/L Normal 98-107 [facility] Comment on above: Performed By: #### UAMIC #### [facility] [address] [place] [address] Dr. Annie Rain CO2 [Moles/Vol] 29.6 mmol/L Normal 21.0-32.0 [facility] Comment on above: Performed By: #### UAMIC #### [facility] [address] [place] [address] Dr. Annie Rain Creatinine [Mass/Vol] 0.55 mg/dL Normal 0.55-1.02 [facility] Comment on above: Performed By: #### UAMIC #### [facility] [address] [address] [address] Annie Rian EGFR-AF THAI >60 Normal >=60 [facility] Comment on above: Performed By: #### UAMIC #### [facility] [address] [address] [address] Annie Rain EGFR-NON AF THAI >60 Normal >=60 [facility] Comment on above: Performed By: #### UAMIC #### [facility] [address] [address] [address] Annie Rain Glucose [Mass/Vol] 80 mg/dL Normal 74-106 [facility] Comment on above: Performed By: #### UAMIC #### [facility] [address] [place] [address] Dr. Annie Rain Potassium [Moles/Vol] 4.0 mmol/L Normal 3.5-5.1 [facility] Comment on above: Performed By: #### UAMIC #### [facility] [address] [place] [address] Dr. Annie Rain Sodium [Moles/Vol] 142 mmol/L Normal 136-145 [facility] Comment on above: Performed By: #### UAMIC #### [facility] [address] [place] [address] Dr. Annie Rain Urea nitrogen [Mass/Vol] 8.0 mg/dL Normal 7.0-18.0 [facility] Comment on above: Performed By: #### UAMIC #### [facility] [address] [place] [address] Dr. Annie Rain Urea nitrogen/Creati nine [Mass ratio] 14.5 mg/mg Normal [facility] Comment on above: Performed By: #### UAMIC #### [facility] [address] [place] [address] Dr. Annie Rain TSHon 10-29-2022 TSH 0.404 uIU/mL Normal 0.358-3.740 [facility] Comment on above: Performed By: #### UAMIC #### [facility] [address] [place], [place] [id number] Dr. Annie Rain XR LSPINE MIN 4 [...] YENI RUST Date: 2022-08-27 07:31 Normal [facility] MRI BRAIN WO W CONon 022 [...] BARRY HO Date: 2022-08-15 22:51 Normal [facility] CREATININEon 08-15-2022 Creatinine [Mass/Vol] 0.62 mg/dL Normal 0.55-1.02 [facility] Comment on above: Performed By: #### CREA #### [facility] [address] [address] [address] Annie Rain EGFR-AF THAI >60 Normal >=60 [facility] Comment on above: Performed By: #### CREA #### [facility] [address] [address] [address] Annie Rain EGFR-NON AF THAI >60 Normal >=60 [facility] Comment on above: Performed By: #### CREA #### [facility] [address] [place], [place] [address] ABD/PELVIS WO CONon [...] YENI RUST Date: 2022-06-25 13:49 Normal [facility] CT HEAD WO CONon 06-25-2022 CT [...] PABLO MILLER Date: 2022-06-25 13:56 Normal [facility] CULTURE URINEon 06-20-2022 CULTURE URINE Culture Observations : LIGHT GROWTH OF MIXED GENITAL SILAS. NO POTENTIAL PATHOGENS SEEN. Normal [facility] Comment on above: Performed By: #### INSGF1 #### [facility] [address] [place] [address] Dr. Annie Rain UA RANDOM W/MICROSCOPICon BACTERIA NONE SEEN Normal NONE SEEN [facility] Comment on above: Performed By: #### UAMIC #### [facility] [address] [place] [address] Dr. Annie Rain Bilirubin Ql (U) Negative Normal NEGATIVE [facility] Comment on above: Performed By: #### UAMIC #### [facility] [address] [place] [address] Dr. Annie Rain CAST NONE SEEN Normal NONE SEEN [facility] Comment on above: Performed By: #### UAMIC #### [facility] [address] [place] [address] Dr. Annie Rain Clarity (U) CLEAR Normal CLEAR [facility] Comment on above: Performed By: #### UAMIC #### [facility] [address] [place] [address] Dr. Annie Rain Color (U) YELLOW Normal YELLOW [facility] Comment on above: Performed By: #### UAMIC #### [facility] [address] [place] [address] Dr. Annie Rain Crystals LM Nom (Urine sed) NONE SEEN Normal NONE SEEN [facility] Comment on above: Performed By: #### UAMIC #### [facility] [address] [place] [address] Dr. Annie Rain Epithelial cells LM Ql (Urine sed) RARE Normal NONE SEEN /RARE [facility] Comment on above: Performed By: #### UAMIC #### [facility] [address] [place] [address] Dr. Annie Rain Glucose Ql (U) Negative Normal NEGATIVE [facility] Comment on above: Performed By: #### UAMIC #### [facility] [address] [place] [address] Dr. Annie Rain Hemoglobin Ql (U) SMALL Abnormal NEGATIVE [facility] Comment on above: Performed By: #### UAMIC #### [facility] [address] [place] [address] Dr. Annie Rain Ketones Ql (U) TRACE Abnormal NEGATIVE [facility] Comment on above: Performed By: #### UAMIC #### [facility] [address] [place] [address] Dr. Annie Rain LEUKOCYTES Negative Normal NEGATIVE [facility] Comment on above: Performed By: #### UAMIC #### [facility] [address] [place] [address] Dr. Annie Rain MUCOUS NONE SEEN Normal NONE SEEN [facility] Comment on above: Performed By: #### UAMIC #### [facility] [address] [place] [address] Dr. Annie Rain Nitrite Ql (U) Negative Normal NEGATIVE [facility] Comment on above: Performed By: #### UAMIC #### [facility] [address] [place] [address] Dr. Annie Rain pH (U) 6.5 [pH] Normal 5-9 [facility] Comment on above: Performed By: #### UAMIC #### [facility] [address] [place] [address] Dr. Annie Rain RBC 2-5 Abnormal 0-2 [facility] Comment on above: Performed By: #### UAMIC #### [facility] [address] [place] [address] Dr. Annie Rain SPEC GRAVITY 1.020 Normal 1.005-<=1.02 5 [facility] Comment on above: Performed By: #### UAMIC #### [facility] [address] [place] [address] Dr. Annie Rain UA PROTEIN Negative Normal NEGATIVE/ TRACE [facility] Comment on above: Performed By: #### UAMIC #### [facility] [address] [place] [address] Dr. Annie Rain Urobilinogen Qn (U) 1.0 {Willam'U}/dL Normal 0.2 - 1.0 [facility] Comment on above: Performed By: #### UAMIC #### [facility] [address] [place] [address] Dr. Annie Rain WBC 0-2 Abnormal NONE SEEN [facility] Comment on above: Performed By: #### UAMIC #### [facility] [address] [place] [address] CHEST WO CONon [...] YENI RUST Date: 2022-06-08 13:10 Normal [facility] CULTURE URINEon 05-30-2022 CULTURE URINE Culture Observations : NO GROWTH. Normal [facility] Comment on above: Performed By: #### INSGF1 #### [facility] [address] [place] [address] Dr. Annie Rain UA RANDOM W/MICROSCOPICon BACTERIA TRACE Abnormal NONE SEEN [facility] Comment on above: Performed By: #### UAMIC #### [facility] [address] [place] [address] Dr. Annie Rain Bilirubin Ql (U) Negative Normal NEGATIVE [facility] [facility] Comment on above: Performed By: #### UAMIC #### [facility] [address] [place] [address] Dr. Annie Rain CAST NONE SEEN Normal NONE SEEN [facility] Comment on above: Performed By: #### UAMIC #### [facility] [address] [place] [address] Dr. Annie Rain Clarity (U) CLEAR Normal CLEAR [facility] Comment on above: Performed By: #### UAMIC #### [facility] [address] [place] [address] Dr. Annie Rain Color (U) LT. YELLOW Normal YELLOW [facility] Comment on above: Performed By: #### UAMIC #### [facility] [address] [place] [address] Dr. Annie Rain Crystals LM Nom (Urine sed) NONE SEEN Normal NONE SEEN [facility] Comment on above: Performed By: #### UAMIC #### [facility] [address] [place] [address] Dr. Annie Rain Epithelial cells LM Ql (Urine sed) RARE Normal NONE SEEN /RARE [facility] Comment on above: Performed By: #### UAMIC #### [facility] [address] [place] [address] Dr. Annie Rain Glucose Ql (U) Negative Normal NEGATIVE [facility] Comment on above: Performed By: #### UAMIC #### [facility] [address] [place] [address] Dr. Annie Rain Hemoglobin Ql (U) Negative Normal NEGATIVE [facility] Comment on above: Performed By: #### UAMIC #### [facility] [address] [place] [address] Dr. Annie Rain Ketones Ql (U) Negative Normal NEGATIVE [facility] Comment on above: Performed By: #### UAMIC #### [facility] [address] [place] [address] Dr. Annie Rain LEUKOCYTES Negative Normal NEGATIVE [facility] Comment on above: Performed By: #### UAMIC #### [facility] [address] [place] [address] Dr. Annie Rain MUCOUS NONE SEEN Normal NONE SEEN [facility] Comment on above: Performed By: #### UAMIC #### [facility] [address] [place] [address] Dr. Annie Rain Nitrite Ql (U) Negative Normal NEGATIVE [facility] Comment on above: Performed By: #### UAMIC #### [facility] [address] [place] [address] Dr. Annie Rain pH (U) 6.0 [pH] Normal 5-9 [facility] Comment on above: Performed By: #### UAMIC #### [facility] [address] [place] [address] Dr. Annie Rain RBC 0-2 Normal 0-2 [facility] Comment on above: Performed By: #### UAMIC #### [facility] [address] [place] [address] Dr. Annie Rain SPEC GRAVITY <=1.005 Abnormal 1.005-<=1.02 5 [facility] Comment on above: Performed By: #### UAMIC #### [facility] [address] [place] [address] Dr. Annie Rain UA PROTEIN Negative Normal NEGATIVE/ TRACE [facility] Comment on above: Performed By: #### UAMIC #### [facility] [address] [place] [address] Dr. Annie Rain Urobilinogen Qn (U) 0.2 {Willam'U}/dL Normal 0.2 - 1.0 [facility] Comment on above: Performed By: #### UAMIC #### [facility] [address] [place] [address] Dr. Annie Rain WBC 0-2 Abnormal NONE SEEN [facility] Comment on above: Performed By: #### UAMIC #### [facility] [address] [place] [address] Dr. Annie Rain Covid-19 PCR ([facility])on 03-16 SARS-CoV-2 (COVID-19) RNA GREGOR+probe Ql (Unsp spec) Detected Critically abnormal NOT DETECTED [facility] Comment on above: Result Comment: This test is not yet jose roved or cleared by the [place] FDA. When there are no FDA-approved or cleared tests available, and other criteria are met, FDA can make tests available under an emergency access mechanism called an Emergency Use Authorization (EUA). The EUA for this test is supported by the [place] of Health and Human Service's declaration that [...] used). Performed By: #### I NSGF1 #### [facility] [address] [place], [place] [address] Dr. Annie Rain MRI BRAIN WO W [...] prior studies available for comparison. Normal [facility] BUNon 02-05-2022 Urea nitrogen [Mass/Vol] 13.0 mg/dL Normal 7.0-18.0 [facility] Comment on above: Performed By: #### CREA, BUN #### [facility] [address] [place], [place] [address] Dr. Annie Rain CREATININEon 02-05-2022 Creatinine [Mass/Vol] 0.70 mg/dL Normal 0.55-1.02 [facility] Comment on above: Performed By: #### INSGF1 #### [facility] [address] [place] [address] [address] Annie Rain EGFR-AF THAI >60 Normal >=60 [facility] Comment on above: Performed By: #### INSGF1 #### [facility] [address] [place] [address] [address] Annie Rain EGFR-NON AF THAI >60 Normal >=60 [facility] Comment on above: Performed By: #### INSGF1 #### [facility] [address] [place] [address] [address] Annie Rain MR head/brain wo/w conon MR head/brain wo/w con [facility] [place] [address] MRI Report Signed Patient: Sherie Cunningham MR#: [id number] : 1955 Acct:[id number] Age/Sex: 65 / F ADM Date: 11/07/20 Loc: MR Room: Type: [facility] Attending Dr: Barry Woodson MD Ordering Provider: [...] Remberto Coulter M.D.11/08/2020 11:48 AM Dictation Location: [place] [address] Transcribed By: [facility] 11/08/20 1148 Dictated By: Remberto Coulter II, MD 11/08/20 1135 Signed By: 11/08/20 1148 Normal [facility] ISTAT XRay CREon 11-07-2020 Creatinine [Mass/Vol] 0.6 mg/dL Normal 0.6-1.3 [facility] Comment on above: Result Comment: ER/ESD physician is noti fied/shown all ISTAT results. Critical values may be confirmed by laboratory testing if deemed necessary by ER attending doctor. Performed By: #### I SCRE #### [address] Point of Care testing , ISTAT GFR ( > 60 Normal [facility] Comment on above: Result Comment: GFR estimated reference range: According to KDOQI guidelines, <60 ml/min/1.73m2 is sufficient to diagnose a patient with chronic kidney disease. PERFORMED BY: [place] [address] PATHOLOGIST [employer] MARK SERRATO M.D. Performed By: #### I SCRE #### [facility] [address] [place] [address] Point of Care testing , ISTAT GFR (Non- Am > 60 Normal [facility] Comment on above: Performed By: #### ISCRE #### [facility] [address] [place] [address] Point of Care testing , Vital Signs Date Time Vital Sign Value Performing Clinician Facility 11-19-2024 11:14-0500 Body height 162.56 cm Greg Aleman MD Work Phone: [facility] 11-19-2024 11:14-0500 Body mass index (BMI) [Ratio] 26.4 kg/m2 Greg Aleman MD Work Phone: [facility] 11-19-2024 11:14-0500 Body weight 69.93 kg Greg Aleman MD Work Phone: [facility] 05-21-2024 14:13-0400 Body height 162.6 cm Audelia JAIME Work Phone: [facility] 05-21-2024 14:13-0400 Body mass index (BMI) [Ratio] 26.26 kg/m2 Audelia JAIME Work Phone: [facility] 05-21-2024 14:13-0400 Body weight 69.4 kg Audelia Schmid PA Work Phone: [facility] 05-21-2024 14:13-0400 Diastolic blood pressure 90 mm[Hg] Audelia JAIME Work Phone: [facility] 05-21-2024 14:13-0400 Heart rate 69 /min Audelia JAIME Work Phone: [facility] 05-21-2024 14:13-0400 Respiratory rate 16 /min Audelia JAIME Work Phone: [facility] 05-21-2024 14:13-0400 SaO2% (BldA) [Mass fraction] 96 % Audelia JAIME Work Phone: [facility] 05-21-2024 14:13-0400 Systolic blood pressure 140 mm[Hg] Audelia JAIME Work Phone: [facility] 03-10-2024 14:14-0400 Blood Pressure Location Pablo ABRAHAML [facility] 03-10-2024 14:14-0400 Diastolic blood pressure 78 mm[Hg] Pablo NILL [facility] 03-10-2024 14:14-0400 Heart rate 72 /min Pablo NILL [facility] 03-10-2024 14:14-0400 Respiratory rate 16 /min Pablo NILL [facility] 03-10-2024 14:14-0400 Systolic blood pressure 136 mm[Hg] Pablo NILL [facility] 04-19-2022 12:15-0400 Body height 162.56 cm SOPATec II Other [facility] Other 04-19-2022 12:15-0400 Body mass index (BMI) [Ratio] 27.46 kg/m2 Nichelle Lynn II Other [facility] Other 04-19-2022 12:15-0400 Body weight 72.58 kg Nichelle Bracken II Other [facility] Other 01-18-2022 10:15-0400 Body height 162.56 cm [employer] II Other [facility] Other 01-18-2022 10:15-0400 Body mass index (BMI) [Ratio] 27.98 kg/m2 Nichelle Lynn II Other [facility] Other 01-18-2022 10:15-0400 Body weight 73.94 kg Nichelle Bracken II Other [facility] Other 01-03-2022 12:45-0400 Body height 162.56 cm Nichelle Bracken II Other [facility] Other 01-03-2022 12:45-0400 Body mass index (BMI) [Ratio] 27.98 kg/m2 Nichelle Bracken II Other [facility] Other 01-03-2022 12:45-0400 Body weight 73.94 kg Nichelle Bracken II Other [facility] Other 09-14-2021 10:00-0500 Body height 162.56 cm Nichelle Bracken II Other [facility] Other 09-14-2021 10:00-0500 Body mass index (BMI) [Ratio] 27.63 kg/m2 Nichelle Bracken II Other [facility] Other 09-14-2021 10:00-0500 Body weight 73.03 kg Nichelle Bracken II Other [facility] Other Encounters Encounter Date Encounter Type Care Provider Facility Start: 12-10-2024 End: 12-10-2024 Patient encounter procedure Greg Aleman MD Work Phone: [facility] [place] Work Phone: Start: 12-10-2024 End: 12-10-2024 ambulatory Greg Aleman MD Work Phone: [facility] Work Phone: Start: 11-19-2024 End: 11-19-2024 Patient encounter procedure Greg Aleman MD Work Phone: [facility] Work Phone: Start: 05-21-2024 End: 05-21-2024 Bamboo flowsheet Audelia JAIME Work Phone: [facility] [facility] Start: 05-21-2024 End: 05-21-2024 Bamboo flowsheet Audelia JAIME Work Phone: [facility] [place] [facility] Start: 05-21-2024 End: 05-21-2024 Office outpatient visit 25 minutes Audelia JAIME Work Phone: [facility] [place] [facility] Comment on above: 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); Dizziness; Migraine without aura and without status migrainosus, not intractable (CMS/HCC); Memory change Start: 05-21-2024 End: 05-21-2024 ambulatory AUDELIA SCHMID Not Available Start: 05-08-2024 End: 05-08-2024 ambulatory [facility] Start: 04-22-2024 End: 04-22-2024 ambulatory Pablo VALENCIA Facility:CD:[id number] Start: 03-10-2024 End: 03-10-2024 ambulatory Greg Aleman Facility: [place] Start: 03-10-2024 End: 03-10-2024 Patient encounter procedure Pablo VALENCIA [facility] [place] Start: 10-17-2023 End: 10-17-2023 ambulatory HAY BLAS [facility] Start: 10-29-2022 End: 10-30-2022 ambulatory JOSSIE CIFUENTES Facility:[facility] Start: 09-13-[address] GREG ALEMAN Facility :[facility] Start: 08-24-2022 End: 08-25-[address] GREG ALEMAN Facility:[facility] Start: 08-15-2022 End: 08-16-[address] GREG ALEMAN Facility:[facility] Start: 06-25-2022 End: 06-25-2022 ambulatory RON EVER Facility:[facility] Start: 06-20-2022 End: 06-21-[address] GREG ALEMAN Facility:[facility] Start: 06-08-2022 End: 06-09-[address] GREG ALEMAN Facility:[facility]1 Start: 05-30-2022 End: 05-31-[address] GREG ALEMAN Facility:[facility] Start: 04-19-2022 End: 04-19-2022 ambulatory Nichelle Lynn II Other [facility] Other Start: 04-19-2022 Office outpatient vi sit 25 minutes Nichelle Bracken II [facility] Start: 04-03-2022 End: 04-03-[address] GREG ALEMAN Facility:[facility]1 Start: 02-05-2022 End: 02-06-2022 ambulatory AUDELIA UNGER Facility:[facility] Start: 01-29-2022 End: 03-05-2022 ambulatory NICHELLE LYNN Facility:[facility] Start: 01-18-2022 End: 01-18-2022 ambulatory Nichelle Bracken II Other [facility] Other Start: 01-18-2022 Office outpatient vi sit 25 minutes Nichelle Bracken II [facility] Start: 01-03-2022 End: 01-03-2022 ambulatory Nichelle Bracken II Other [facility] Other Start: 01-03-2022 Office outpatient vi sit 15 minutes Nichelle Lynn II [facility] Start: 09-14-2021 End: 09-14-2021 ambulatory Nichelle Bracken II Other [facility] Other Start: 09-14-2021 Office outpatient ne w 30 minutes Nichelle Lynn II [facility] Procedures Date Procedure Procedure Detail Performing Clinician Start: 12-10-2024 Computed tomography of abdomen and pelvis with contrast Greg Aleman MD Work Phone: Start: 06-17-2019 Colonoscopy Pablo ABRAHAML Start: 06-17-2019 Esophagoduodenostomy Pablo NILL Comment on above: with biopsy Start: 01-22-2006 Esophagogastroduodenoscopy Pablo NILL Start: 12-06-2005 Colonoscopy Pablo NILL Abdominal hysterectomy Gerald jorge ABRAHAML Bilateral salpingect orestes with oophorectomy Pablo NILL History of subtotal thyroidectomy Pablo NILL Plan of Treatment Date Care Activity Detail Author Start: 08-12-2024 End: 08-12-2024 Patient encounter procedure 08/12/2024 1:00 PM EST Office Visit [facility] [address] [place] [address] Audelia Schmid PA [address] [place] [address] [facility] [place] [facility] Start: 05-21-2024 End: 05-21-2024 Patient encounter procedure 05/21/2024 2:00 PM EDT Office Visit [facility] [place] [facility] [address] [place] [address] Audelia Schmid PA [address] [place] [address] Arrived [facility] [place] [place] [facility] Comment on above: Arrived Comprehensive metabo lic 2000 panel - Serum or Plasma [facility] Immunizations Immunization Date Immunization Notes Care Provider Fa cility NEGATED: Highlighted row has not occurred!06-26-2019 influenza virus vaccine, unspecified formulation Pablo ABRAHAML [facility] Comment on above: Result Comment: Will consult with primary care physician Payers Date Payer Category Payer Self-pay 2022 [place] [facility] [place] [id number] 2022-Present [phone] [address] [place] [address] Medicaid [id number] 2022 Medicare MEDICARE MEDICAR E PART B [id number] 2022-Present [address] [address] [place] [address] Medicare [id number] 1959 Medicaid [id number] 1959 Medicare [id number] 2.16.840.1.758986.19 1959 Unknown [id number] 2.16.840.1.875706.19 1957 Unknown [id number] 2.16.840.1.711147.3.579.2. 1957 Unknown [id number] 2.16.840.1.962065.3.579.2.593 1957 Unknown [id number] 2.16.840.1.391470.3.579.2.59 1957 Unknown [id number] 2.16.840.1.514460.3.579.2.593 1957 Unknown [id number] 2.16.840.1.970868.3.579.2.59 1957 Unknown [id number] 2.16.840.1.736532.3.579.2.593 1957 Unknown [id number] 2.16.840.1.238511.3.579.2.59 1957 Unknown [id number] 2.16.840.1.513228.3.579.2.593 1957 Unknown [id number] 2.16.840.1.892927.3.579.2.593 1957 Unknown [id number] 2.16.840.1.869067.3.579.2.593 1957 Unknown [id number] 2.16.840.1.039997.3.579.2.593 1957 Unknown [id number] 2.16.840.1.567232.3.579.2.727 1957 Unknown [id number] 2.16.840.1.844227.3.579.2.727 1957 Unknown [id number] 2.16.840.1.791889.3.579.2.1259 Unknown [id number] 2.16.840.1.330944.3.579.2.531 Social History Date Type Detail Facility Start: 04-15-2024 Sex Assigned At [facility] Start: 03-10-2024 End: 11-19-2024 Tobacco smoking status Ex-smoker (finding) [facility] [place] Tobacco smoking status Never [facility] History of tobacco use Current smoker [facility] History of tobacco use Cigarette Smoker [facility] Start: 04-15-2024 Alcoholic beverage intake Lifetime non-drinker (finding) [facility] Start: 04-15-2024 History of Social function [facility] Start: 1955 Sex assigned at Not on file [facility] Start: 12-11-2024 Sex Female (finding) [facility] Start: 1955 Sex Assigned At Female [facility] Functional Status Date Assessment Result Facility 03-10-2024 Functional Status N/A [facility] [place] Clinical Notes 09-14-2021 to 12-10-2024 Note Date & Type Note Facility 12-10-2024 Radiology Diagnostic study note [facility] [place] [address] [place] [address] CT Scan Report Signed Patient: Sherie [place] MR#: [id number] : 1955 Acct:[id number] Age/Sex: 69 / F ADM Date: 5 Loc: CT Room: Type: [facility] Attending Dr: Haley Morrow MD Copies to: Haley Morrow MD~ Ordering Provider: Haley Morrow MD Date of Service: 12/10/24 CT/CT abdomen pelvis w con: R14.0 - Abdominal distension (gaseous) CT ABDOMEN AND PELVIS WITH INTRAVENOUS CONTRAST: CLINICAL HISTORY: Right-sided abdominal pain with nausea vomiting diarrhea for 6 months to 1 year. COMPARISON: None TECHNIQUE: Spiral images were obtained through the abdomen and pelvis followingthe administration of intravenous contrast. This CT exam was performed using one or more following dose reduction techniques: Automated exposure control, adjustment of the mA and/or kV according to patient size, or use of iterative reconstruction technique. FINDINGS: Lung Bases: [Mild bibasilar scarring.] Organs:Small liver cyst. Gallbladder portal vein pancreas spleen and adrenal glands all appear unremarkable. No enhancing renal mass or hydronephrosis. Subcentimeter low attenuating lesions involving the right kidney too small for adequate characterization. Abdominal aorta appears normal in caliber.[ GI: Stomach is grossly unremarkable. Small bowel appears nondilated. Appendix is normal. No acute colonic abnormality is seen.[ Pelvis:[Urinary bladder is grossly unremarkable. Uterus has been removed. No adnexal mass.] Peritoneum/Retroperitoneum:No free air or free fluid or lymphadenopathy.[ Abd wall/Bones:Abdominal wall demonstrates no acute findings. Osseous structures demonstrate degenerative change.[ CT/CT abdomen pelvis w con IMPRESSION: No acute process. Impression dictated by: Kev Chavez Jr., D.O.12/10/2024 4:37 PM Dictation Location: [facility]18 Transcribed By: YEIMY 12/10/24 163 Dictated By: Kev Chavez Jr, DO 12/10/24 1634 Signed By: 12/10/24 1637 [facility] 11-19-2024 Evaluation note Authored November 19, 2024 12:3 5pm 69 y/o female [facility] for evaluation of LLQ and RUQ pain. + lower abdominal pain nausea vomiting and diarrhea for last few months. -Will check CBC CMP, TSH, ESR, CRP, fecal calprotectin HIV ab, Celiac panel, fecal elastase and stool infectious workup -Will arrange for CT abdomen/pelvis. -Will arrange for EGD/colonoscopy. [facility] Work Phone: 1(848) 812-476608-23-2024 NoteUT Cardiology - [facility] Subjective Sherie Cunningham is a [...] mg SL table (more content not included)... [facility]06-28-2024 NoteGeneral Surgery Office/Clinic Note Chief Complaint consultation for abdominal pain [...] has not been effective. RUQ US completed 01/12-normal. EGD and colonoscopy completed 06/2019 with antral gastritis, small antral ulcers and bile reflux; colonoscopy was normal. Patient with history of ulcerative colitis. States this was diagnosedmany years ago and is not being treated as symptoms have been well controlled. History of Present Illness 68 yo female with h/o COPD, htn, hyperlipidemia, fibromyalgia, TIA, lumbar radiculopathy, anxiety, ulcerative colitis, referred for abdominal pain; patient reports several month h/o epigastric burning pain, radiating to chest; also crampy bilateral lower abd pain, worse after eating, spicy or fattyfoods seem to trigger, occasional nausea, no emesis; [...] swallowing difficulties, no hearing loss, no ear infection(s),no nose bleeds. Cardiovascular: normal blood pressure, no [...] mild tenderness, epigastrium no masses, no palpable hernias,diastasis recti no, no hepatosplenomegaly; normal bs Lymphatic: [...] gastritis Anxiety Bilateral lo (more content not included)...[facility]Result Comment: Electronically Signed By: ERIK SMALLWOOD, Pablo Workman\Date and Time Signed: 03/13/24 10:51 [id number] NoteLipids elevated and pt prefers to start with diet and lifestyle modifications Will repeat lipid level in 3 months [facility] NoteHypertension is elevated in office, she is adamant that b/p is well controlled at home. Staff to call pt in 1-2 weeks to review b/p log. Continue lisinopril 5 mg daily- she reports a dry cough but states this is r/t her lung disease- we discussed side effect of lisinopril can be cough and she voiced understanding.[facility]02-01-2024 NoteStable continue all medicationsUnUC Health02-01-2024 NoteUTP CARDIOLOGY PROGRESS NOTE HPI: Sherie [place] is a 68 [...] Thought content normal. Judgment: Judgment normal. Labs: 1/24/24 A1C 5.6 CBC stable BUN 13, CR [...] regional wall motion abnor (more content not included)...[facility]02-01-2024 NotePatient here for 6 mo follow up Prinzmetal [...] pain. All other systems reviewed and are negative.[facility] 06-25-2022 NotePROCEDURE: CT CSPINE WO CON COMPARISON: None. HISTORY: [...] Electronically authenticated by: YENI RUST Date: 2022-06-25 13:55[facility]10-10-2022 NotePROCEDURE: XR HAND LT MIN 3V HISTORY: C/O: a pain ; [...] Electronically authenticated by: BARRY HO Date: 2022-06-25 13:49[facility]08-04-2022 Evaluation note* Encounter Date Diagnosis Assessment Notes Treatment Notes Treatment Clinical Notes Apr, Primary osteoarthritis of right knee (ICD-10 - M17.11) Apr, Primary osteoarthritis of right hip (ICD-10 - M16.11) Apr, Primary osteoarthritis of left knee (ICD-10 - M17.12) Apr, Lumbar back pain with radiculopathy affecting left lower extremity (ICD-10 - M54.16) Apr, Other In regards to t he right knee, I recommended that she continue [...] we will get a lumbar spine x-ray. [facility] Other 05-05-2022 Evaluation note* Encounter Date Diagnosis [...] a viscosupplementation. 6. Follow up 3 months [facility] Other 04-20-2022 Evaluation note* Encounter Date Diagnosis [...] knee compared to a partial knee replacement. [facility] Other 12-30-2021 Evaluation note* Encounter Date Diagnosis [...] this well. 5. Follow up 3 months [facility] Other Evaluation + Plan note No data available for this section [facility] [place] [facility]* Diagnosis Neoplasm of uncertain behavior [...] History pneumonia Hospitalization History chest pain 04/2021 [facility] Other Hospital Discharge instructions No data available for this section [facility] [place] Progress note No data available for this section [facility] [place] Summary Purpose Family History No Family History Records Found Relationship Condition Age at Onset Recorded Date/T nichelle daughter Angina pectoris Unknown Heart disease Unknown grandparent Unknown Aneurysm Unknown mother Unknown Malignant neoplasm Unknown Advance Directives No Advanced Directives Records Found Advance Directive Response Recorded Date/ Time Advance Directives No October 11:05am Chief Complaint and Reason for Visit Chief Complaint Admit Date Refer: IBS, LLQ + RUQ pain November 19 11:11am R14.0 R19.8 R10.13 R10.99 R11.0 December 102024 1:42pm Reason for Visit Admit Date Abdominal burning sensation in right upp er quadrant November 19, 2024 11:11am Abdominal pain November 19, 2024 11:1 1am Alternating constipation and diarrhea [facility] 2024 11:11am Bloating November 19, 2024 11:1 1am Dyspepsia November 19, 2024 11:1 1am Nausea November 19, 2024 11:1 1am Additional Source Comments INFORMATION SOURCE (unrecogn ized section and content) DATE CREATED AUTHOR 11/12/2020 [facility] DATE CREATED AUTHOR AUTHOR'S ORGANIZ ATION 11/03/2022 [facility] DATE CREATED AUTHOR AUTHOR'S ORGANIZ ATION 05/01/2024 [facility] [facility] DATE CREATED AUTHOR AUTHOR'S ORGANIZ ATION 05/10/2024 [facility] DATE CREATED AUTHOR AUTHOR'S ORGANIZ ATION 05/23/2024 [facility] DATE CREATED AUTHOR AUTHOR'S ORGANIZ ATION 12/19/2024 [facility] REASON FOR VISIT (unrecogniz ed section and content) Reason Comments Memory Loss Headache Dizziness Patient Care team informatio n (unrecognized section and content) Team Status: Active Member Role Status Lyn Aleman MD Primary Care Provider Active Team Status: Inactive Member Role Status Lyn Aleman MD Primary Care Provider Active Start: November 19, 2024 End: November 19, 2024 Haley Morrow MD Attending Provider Active Start: November 19, 2024 End: November 19, 2024 Team Status: Inactive Member Role Status Dates Greg Aleman MD Primary Care Provider Active Start: December 10, 2024 End: December 10, 2024 Haley Morrow MD Attending Provider Active Start: December 10, 2024 End: December 10, 2024 Goals (unrecognized section and content) Goals may be documented in a n alternate section FOR RECORDS PERTAINING TO PATIENTS WHO ARE [...] BE BASED ON THE PRIMARY CLINICAL RECORDS. [facility]. provides no warranty or guarantee of the accuracy or completeness of information in this document.
--- NOTE | 2025-02-26 10:20 | MM_ITS ---
Patient Name: OUMAR CHEN MR#: [id number] : 1955 Exam Date: 02/26/2025 Ordering Doctor: DR GREG PETERSON . RADIOLOGY REPORT PROCEDURE: MM TOMOSYNTHESIS SCREENING BI COMPARISON: MG MAMM SCREEN ADORE W CAD, 03/14/2020. MG MAMM SCREEN ADORE W CAD, 07/29/2018. MG MAMM SCREEN ADORE W CAD, 06/10/2017. MG MAMM ADORE SCRN W CAD DIG, 07/20/2013. INDICATIONS: Screening Calculator Name NCI Breast Cancer Risk Assessment Tool 5 Year Breast Cancer Risk 3.50% Lifetime Breast Cancer Risk 11.50% Personal Breast Cancer No Personal Ovarian Cancer No Treatments None Family Cancers Aunt-maternal with breast cancer at age 50; Aunt-maternal with ovarian cancer at age 50; Mother with skin cancer at age 60; Mother with breast cancer at age 78; Mother with stomach cancer at age 80; Father with skin cancer at age ~75; Brother with skin cancer at age ~60; Grandfather-paternal with unknown cancer at age 80. LOCATION: [facility] BREAST COMPOSITION: The breasts are heterogeneously dense,which may obscure small masses. FINDINGS: RIGHT BREAST: No significant suspicious finding. LEFT BREAST: No significant suspicious finding. DIAGNOSTIC CATEGORY 1--NEGATIVE. RECOMMENDATIONS: ROUTINE MAMMOGRAM AND CLINICAL EVALUATION IN 12 MONTHS. PLEASE NOTE: A NORMAL MAMMOGRAM DOES NOT EXCLUDE THE POSSIBILITY OF BREAST CANCER. A CLINICALLY SUSPICIOUS PALPABLE LUMP SHOULD BE BIOPSIED. Dictated by: Cedric Caal DO on 02/26/2025 at 13:58 Approved by: Cedric Caal DO on 02/26/2025 at 14:02
[2025-02-26 10:36] LABS: Basophils Absolute Auto 0.1 10^3/uL (0.0-0.1); Basophils Percent Auto 1.1 % (0.2-2.0); Eosinophils Absolute Auto 0.1 10^3/uL (0.0-0.7); Eosinophils Percent Auto 2.1 % (0.9-7.0); Hematocrit 36.5 % (36.0-48.0); Hemoglobin 12.1 g/dL (12.0-16.0); Immature Granulocytes Abs Auto 0.01 10^3/uL (0.00-0.03); Immature Granulocytes Pct Auto 0.2 % (0.0-0.5); Lymphocytes Absolute Auto 2.3 10^3/uL (1.2-3.8); Lymphocytes Percent Auto 43.3 % (20.5-60.0); Mean Corpuscular HGB Conc 33.2 g/dL (29.9-35.2); Mean Corpuscular Hemoglobin 29.5 pg (26.7-34.0); Mean Platelet Volume 10.4 fL (9.5-13.5); Monocytes Absolute Auto 0.3 10^3/uL (0.3-0.8); Monocytes Percent Auto 6.2 % (1.7-12.0); Neutrophils Absolute Auto 2.5 10^3/uL (1.4-6.5); Neutrophils Percent Auto 47.1 % (43.0-75.0); Platelet Count 244 10^3/uL (150-450); Red Cell Distribution Width 12.3 % (11.0-15.0); White Blood Count 5.3 10^3/uL (4.0-11.0)
[2025-02-26 11:54] LABS: Alanine Aminotransferase 12 U/L (14-59); Albumin Globulin Ratio 1.2; Albumin Level 3.9 g/dL (3.4-5.0); Alkaline Phosphatase 76 U/L (46-116); Anion Gap 13.6; Aspartate Amino Transferase 11 U/L (15-37); Bilirubin Total 0.4 mg/dL (0.2-1.0); Calcium 9.3 mg/dL (8.5-10.1); Carbon Dioxide 29.2 mmol/L (21.0-32.0); Chloride 104 mmol/L (98-107); Chol HDL Ratio 3.1; Cholesterol 232 mg/dL (<=200); Estimated GFR (African America >60 (>=60 mL/min/1.73m^2); Estimated GFR (Non-African Ame >60 (>=60 mL/min/1.73m^2); Free T3 3.19 pg/mL (2.18-3.98); Globulin 3.3 g/dL; Glucose 90 mg/dL (74-106); HDL Cholesterol 76 mg/dL (40-60); Potassium 3.8 mmol/L (3.5-5.1); Sodium 143 mmol/L (136-145); Thyroid Stimulating Hormone 0.224 uIU/mL (0.358-3.740); Total Protein 7.2 g/dL (6.4-8.2); Triglycerides 75 mg/dL (<=150)
[2025-02-26 14:30] LABS: Estimated Average Glucose 117 mg/dL; Glycohemoglobin A1C 5.7 % (4.5-6.2)
== END 2025-02-26 09:52 | disposition home or self-care (01) ==
LOC: MAMMO 09:52
PROVIDERS: PCP Family Medicine; Visit Provider Family Medicine
DX: E28.39 Other primary ovarian failure (principal); Z12.31 Encounter for screening mammogram for malignant neoplasm of breast; J44.9 Chronic obstructive pulmonary disease, unspecified; E11.9 Type 2 diabetes mellitus without complications; M79.7 Fibromyalgia; I10 Essential (primary) hypertension; D32.9 Benign neoplasm of meninges, unspecified; Z80.3 Family history of malignant neoplasm of breast; Z80.41 Family history of malignant neoplasm of ovary; Z80.8 Family history of malignant neoplasm of other organs or systems; Z80.0 Family history of malignant neoplasm of digestive organs; M85.80 Other specified disorders of bone density and structure, unspecified site
CPT/HCPCS: 36415; 77063; 77067; 77080; 80053; 80061; 83036; 83540; 84436; 84443; 84481; 85025

== ENCOUNTER 2025-04-01 15:40 | Outpatient (OUT) | payer MEDICARE, MEDICAID, SELFPAY ==
[2025-04-01 15:56] LABS: Glucose Urine UA NEGATIVE (NEGATIVE)
[2025-04-01 16:02] LABS: Cast Seen? NONE SEEN #/LPF (NONE SEEN); Crystals Seen? None Seen #/HPF (None Seen); Urine Culture Indicated ALREADY ORDERED
== END 2025-04-01 15:41 | disposition home or self-care (01) ==
LOC: LAB 15:41
PROVIDERS: PCP Family Medicine; Visit Provider Family Medicine
DX: R35.0 Frequency of micturition (principal)
CPT/HCPCS: 81001; 87086

== ENCOUNTER 2025-04-06 10:11 | Outpatient (OUT) | payer MEDICARE, MEDICAID, SELFPAY ==
--- OUTSIDE RECORDS SUMMARY | 2025-04-01 09:45 | XMS_ITS ---
Author Organization [facility] in [place] Address [address] [place] [address] Care Team Providers Care Millwright Supervisor Name Role Phone Lennox Aleman Primary Care Provider Results Component Value Reference Range Notes UA (Urinalysis, Dipstix only - w/o micro) Reviewed date:04/01/2025 01:32:32 PM Interpretation: Performing Lab: Notes/Report: COLOR yellow Yellow - Cait - CLARITY clear Clear - Clear GLUCOSE - 0 - 133 MG/DL ALBUMIN - NEG - NEG MG/DL BILIRUBIN - NEG - NEG MG/DL SPECIFIC GRAVITY 1.020 1.001 - 1.035 KETONES - NEG - NEG MG/DL BLOOD, UR trace PH, UR 5 5 - 9 UROBILNOGEN - 0.2 - 1 MG/DL NITRITE - NEG - NEG ESTERASE (GUZMAN) - NEG - NEG MG/DL REASON FOR VISIT BP CHECK/ ua check Vital Signs Height 63 in 04/01/2025 Blood pressure systolic 140 mm Hg 04/01/20 25 Blood pressure diastolic 70 mm Hg 025 Encounters Encounter Location Date Provider Diagnosis [facility] [address] [place] [address] 04/01/2025 Lennox Aleman Frequency of urinati on R35.0 Assessments Encounter Date Diagnosis (ICD Code) Assessment Notes Treatment Notes Treatment Clinical Notes Section Notes 04/01/2025 Frequency of urination (ICD-10 - R35.0) Plan Of Treatment No Information Progress Notes * Sherie CUNNINGHAM JDOB: [birth year] (69 yo F)Acc No.[id number]:04/01/2025 Nurse Visit Patient: Sherie LOYA Provider: Korina Aleman ([place])MD :1955 A ge:69 Y S ex:Female Date:04/01/2025 Address:[address] [place] [address] [id number] Check In:01:22 PM ESTCheck O ut:01:49 PM EST Subjective: * Chief Complaints: * B P CHECK/ ua check * HPI: G eneral: preents to the office for a bp check and ua check. * Active Problem List J44.9 COPD (chronic obstru ctive pulmonary disease) Modified On:10/09/2023 Status:confirmed K21.9 GERD (gastroesophage al reflux disease) Modified On:05/30/2023 Status:confirmed M79.7 Fibromyalgia Modified On:05/30/2023 Status:confirmed I20.1 Angina pectoris, celeste iant Modified On:05/27/2023 Status:confirmed E78.5 Dyslipidemia Modified On:10/09/2023 Status:confirmed I10 Benign essential HTN Modified On:05/27/2023 Status:confirmed K21.00 Gastro-esophageal re flux disease with esophagitis, without bleeding Modified On:05/27/2023 Status:confirmed G47.419 Narcolepsy Modified On:05/27/2023 Status:confirmed M79.7 Fibromyalgia Modified On:05/27/2023 Status:confirmed J44.9 Acute chronic obstru ctive pulmonary disease with respiratory distress Modified On:05/27/2023 Status:confirmed K52.9 Acute colitis Modified On:05/27/2023 Status:confirmed F41.9 Anxiety Modified On:05/27/2023 Status:confirmed J02.0 Strep pharyngitis Modified On:07/12/2023U Status:confirmed K29.70 Gastritis Modified On:10/09/2023 Status:confirmed I20.1 Angina pectoris with documented spasm Modified On:10/18/2023U Status:confirmed I10 Essential (primary) hypertension Modified On:10/18/2023 Status:confirmed D32.9 Meningioma Modified On:10/25/2023 Status:confirmed E23.6 Other disorders of p ituitary gland Modified On:11/08/2023U Status:confirmed R10.11 Right upper quadrant abdominal pain Modified On:01/06/2024 Status:confirmed R10.32 Left lower quadrant abdominal pain Modified On:01/06/2024 Status:confirmed K58.9 Irritable bowel Modified On:04/30/2024 Status:confirmed K21.9 GERD without esophag itis Modified On:04/30/2024 Status:confirmed M54.16 Lumbar radiculopathy Modified On:03/22/2025 Status:confirmed * Medical History: * Surgical History: * Hospitalization/Major Diagno stic Procedure: * Medications: Objective: * Vitals: H t: 63 in, BP:140/70mm Hg, Ht-cm: 160.02 cm. Assessment: * Assessment: 1. F requency of urination - R35.0 (Primary) Plan: * Treatment: * Labs: * L ab: UA (Urinalysis, Dipstix only - w/o micro) (Collection Date & Time - 04/01/2025) Value Reference Range C OLOR yellow Yellow - Cait - * C LARITY clear Clear - Clear * G LUCOSE - 0 - 133 MG/DL * A LBUMIN - NEG - NEG MG/DL * B ILIRUBIN - NEG - NEG MG/DL * S PECIFIC GRAVITY 1.020 1.001 - 1.035 * K ETONES - NEG - NEG MG/DL * B LOOD, UR trace * P H, UR 5 5 - 9 * U ROBILNOGEN - 0.2 - 1 MG/DL * N ITRITE - NEG - NEG * E STERASE (GUZMAN) - NEG - NEG MG/DL * Procedure Codes: 8 1002 URINALYSIS WO MICRO * * Sign off status: Completed Visit Status: C HK (Check Out) true * Provider: Korina Aleman ([place])MD Date: 0 04/01/2025 Generated for Debbie patel/Timbo/Arlene on: 0 04/06/2025 10:16 AM EDT History and Physical Notes * HPI (History of Present Illness) Category Sub-Category Detail Notes Category Not es General preents to the office for a bp check and ua check
--- OUTSIDE RECORDS SUMMARY | 2025-04-01 14:08 | XMS_ITS ---
Author Organization [facility] in [place] Address [address] [place] [address] Care Team Providers Care Senior Manufacturing Test Engineer Name Role Phone Lennox Aleman Primary Care Provider [phone] REASON FOR VISIT urine culture Encounters Encounter Location Date Provider Diagnosis [facility] [address] [place] [address] 04/01/2025 Lennox Aleman Plan Of Treatment No Information Progress Notes * Sherie CUNNINGHAM JDOB: (69 yo F)Acc No.[id number]:04/01/2025 Patient: Cora Sherie BERRY :1955 A ge:69 Y S ex:Female Address:[address], [place], [address] * true * Date: Generated for Amani ng/Facharlyg/eTransmitting on: 0 04/06/2025 10:16 AM EDT
--- OUTSIDE RECORDS SUMMARY | 2025-04-05 04:34 | XMS_ITS ---
Author Organization [facility] in [place] Address [address] [place] [address] Care Team Providers Care Field Contractor Name Role Phone Lennox Aleman Primary Care Provider REASON FOR VISIT hip update Medications Medication SIG (Take, Route, Frequency, Duration) Notes Start Date End Date Status Cholecalciferol 50 MCG (1999) 1 capsule Orally Once a day for 30 days 04/05/2025 Active Calcium 600 MG 1 tablet with meals Orally Twice a day for 30 days 04/05/2025 Active Amoxicillin-Pot Clavulanate 875-125 MG 1 tablet Orally every 12 hrs for 10 days 04/05/2025 Active Encounters Encounter Location Date Provider Diagnosis [facility] [address] [place] [address] 04/05/2025 Lennox Aleman Lumbar radiculopath y M54.16 Assessments Encounter Date Diagnosis (ICD Code) Assessment Notes Treatment Notes Treatment Clinical Notes Section Notes 04/05/2025 Lumbar radiculopathy (ICD-10 - M54.16) Plan Of Treatment Medication Medication Name Sig Start Date Stop Date Notes Cholecalciferol 50 MCG (1999) 1 capsu le Orally Once a day for 30 days 04/05/2025 Calcium 600 MG 1 tablet with meals Orally Twice a day for 30 days 04/05/2025 Amoxicillin-Pot Clavulanate 875-125 MG 1 tablet Orally every 12 hrs for 10 days 04/05/2025 Pending Test Test Name Order Date MRI LSPINE WO CON 04/05/2025 XR LSPINE 2_3 VIEWS 04/05/2025 Progress Notes * Sherie CUNNINGHAM JDOB: [birth year] (69 yo F)Acc No.[id number]:04/05/2025 Patient: Sherie LOYA :1955 A ge:69 Y S ex:Female Address:[address] [place] [address], [address] * Refills Start Amoxicillin-Pot Clavulanate Tablet, 875-125 MG, Orally, 20 Tablet, 1 tablet, every 12 hrs, 10 days, Refills=0 Start Calcium Tablet, 600 MG, Orally, 60 Tablet, 1 tablet with meals, Twice a day, 30 days, Refills=11 Start Cholecalciferol Capsule, 50 MCG (2000 UT), Orally, 30 Tablet, 1 capsule, Once a day, 30 days, Refills=11 Subjective: * Chief Complaints: * H ip update * Medical History: * Surgical History: * Hospitalization/Major Diagno stic Procedure: * Medications: Objective: * Vitals: * Physical Examination: Assessment: * Assessment: 1. L umbar radiculopathy - M54.16 (Primary) Plan: * Treatment: 2. O thers Start Amoxicillin-Pot Clavulanate Tablet, 875-125 MG, 1 tablet, Orally, every 12 hrs, 10 days, 20 Tablet, Refills 0; S tart Calcium Tablet, 600 MG, 1 tablet with meals, Orally, Twice a day, 30 days, 60 Tablet, Refills 11; S tart Cholecalciferol Capsule, 50 MCG (2000 UT), 1 capsule, Orally, Once a day, 30 days, 30 Tablet, Refills 11. * Procedure Codes: * true * Date: Generated for Dbebie patel/Timbo/Russellitting on: 0 04/06/2025 10:16 AM EDT
--- OUTSIDE RECORDS SUMMARY | 2025-04-06 10:16 | XMS_ITS | Clinical Summary ---
Author Organization [facility] Address [address] [place] [address] Care Team Providers Care Supervisor Wood Room Name Role Phone Joaquin Aleman MD Primary Care Provider [phone] Allergies Active Allergy Reactions Criticality Noted Date Comments Coconut (Cocos Nucifera) 04/15/2024 Onion 04/15/2024 Medications cholecalciferol (Vitamin D-3) 50 MCG (1999 UT) capsule Take 2,000 Units by mouth Daily Active hyoscyamine (Levsin) 0.125 MG SL tablet Take 0.125 mg by mouth every 4 (four) hours if needed Active pantoprazole (ProtoNix) 40 MG EC tablet Take 40 mg by mouth in the morning. Take before meals. Active lisinopril 5 MG tablet Take 1 tablet by mouth Daily 4 Active albuterol HFA 90 mcg/act inhaler Inhale 1 puff every 8 (eight) hours Active meclizine (Antivert) 25 MG tablet Take 25 mg by mouth 3 (three) times a day as needed for dizziness Active erenumab (Aimovig) 70 MG/ML injectionIndicat ions:Migraine without aura and without status migrainosus, not intractable Inject 1 mL (70 mg) under the skin every 28 (twenty-eight) days 1 mL 2 4 Active famotidine (Pepcid) 40 MG tablet Take 40 mg by mouth Daily Active Active Problems Problem Noted Date Diagnosed Date Migraine 04/15/2024 Overview (04/15/2024): Headaches made up of migraines that have [...] pituitary gland and craniopharyngeal duct 04/15/2024 Overview (04/15/2024): Pituitary mass and left cerebellar mass consistent [...] unchanged from prior study, left cerebellar meningioma [id number]. She is following with endocrinology and sees them next month. 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 Dizziness 04/15/2024 Overview (04/15/2024): history of dizziness consistent with vertigo. She is having some increase in symptoms that occur in episodes and described as spinning sensation and sometimes lightheadedness sensation that can occur regardless of position change. She is apprehensive about getting carotid ultrasound and TCD due to cost. Pituitary mass 04/15/2024 Memory change 04/15/2024 Overview (04/15/2024): The patient states that she is having short term memory issues. She states that she is not sleeping well and is under stress which could likely be contributing. MOCA 12/31/2022 was 26/30. Memory is stable. Family History Medical History Relation Name Comments Cancer Father Heart disease Father Lung cancer Father Cancer Mother Relation Name Status Comments Father Alive Mother Social History Tobacco Use Types Packs/Day Years Used Date Smoking Tobacco: Former Cigarettes Tobacco Cessation:Counseling Given: Not Answered Alcohol Use Standard Drinks/Week Comments Never 0 (1 standard drink = 0.6 oz pur e alcohol) Comments Unknown Sex and Gender Information Value Date Recorded Sex Assigned at Not on file Legal Sex Female 11:02 PM EDT Gender Identity Not on file Sexual Orientation Not on file Last Filed Vital Signs Vital Sign Reading Time Taken Comments Blood Pressure 140/90 05/21/2024 2:13 PM EDT Pulse 69 05/21/2024 2:13 PM EDT Temperature - - Respiratory Rate 16 05/21/2024 2:13 PM EDT Oxygen Saturation 96% 05/21/2024 2:13 PM EDT Inhaled Oxygen Concentration - - Weight 69.4 kg (153 lb) 05/21/2024 2:13 PM EDT Height 162.6 cm (5' 4 ) 05/21/2024 2:13 PM EDT Body Mass Index 26.26 05/21/2024 2:13 PM EDT Plan of Treatment Not on file Insurance MEDICAID [place] MEDICARE Care Teams Supervisor Wood Room Relationship Specialty Start Date End Date Joaquin Aleman MD PCP - General Family Medicine 06/03/24
--- OUTSIDE RECORDS SUMMARY | 2025-04-06 10:16 | XMS_ITS | Patient Health Record ---
Author Organization [facility] Address [address] [place] [address] Care Team Providers Care Senior Hr Generalist Name Role Phone Lennox Peterson Primary Care Provider [phone] Allergies Allergen (clinical drug ingredient) Drug/Non Drug Allergy documented on EMR Reaction Allergy Type Onset Date Status amlodipine Norvasc Unknown Drug Allergy Active Results Component Value Reference Range Notes UA [...] ESTERASE (GUZMAN) - NEG - NEG MG/DL FREE T4 Reviewed date:05/07/2024 09:00:18 PM Interpretation: Performing Lab: Notes/Report: [facility] , Free T4 1.00 0.76-1.46 ng/dL Performing Lab: see note ML - [facility] LB PROLACTIN Reviewed date:05/10/2024 10:19:03 PM Interpretation: Performing Lab: Notes/Report: [facility] , Prolactin 5.2 3.6-25.2 ng/mL College Dean: Eugene Ricketts PhD, Phone: [phone] [address] [place], [place] [id number] Performed at: [facility] Performing Lab: see note [facility] Cortisol Reviewed date:05/10/2024 10:19:03 PM Interpretation: Performing Lab: Notes/Report: [facility] , Cortisol 8.9 6.2-19.4 ug/dL this test is for an AM collection. If this is a PM Please Note: The reference interval and flagging for collection please use: Cortisol PM: 2.3-11.9 Performing Lab: see note [facility] Luteinizing Hormone(LH) Reviewed date:05/10/2024 10:19:03 PM Interpretation: Performing Lab: Notes/Report: [facility] , Luteinizing Hormone(LH) 17.6 7.7-58.5 mIU/mL Ovulation phase 14.0 - 95.6 Postmenopausal 7.7 - 58.5 Adult Female Range Follicular phase 2.4 - 12.6 Luteal phase 1.0 - 11.4 Performing Lab: see note [facility] FSH Reviewed date:05/10/2024 10:19:03 PM Interpretation: Performing Lab: Notes/Report: [facility] , FSH 55.5 25.8-134.8 mIU/mL Follicular phase 3.5 - 12.5 Adult Female Range Luteal phase 1.7 - 7.7 Ovulation phase 4.7 - 21.5 Postmenopausal 25.8 - 134.8 Performing Lab: see note [facility] ACTH, Plasma Reviewed date:05/10/2024 10:19:03 PM Interpretation: Performing Lab: Notes/Report: [facility] , ACTH, Plasma 31.8 7.2-63.3 pg/mL 10 AM. Performed at: [facility] College Dean: Eugene Ricketts PhD, Phone: [phone] [address] [place], [place] [id number] ACTH reference interval for samples collected between 7 and Performing Lab: see note [facility] IGF-1 Reviewed date:05/10/2024 10:19:03 PM Interpretation: Performing Lab: Notes/Report: [facility] , IGF-1 85 52-196 ng/mL College Dean: Yanique Storey MD, Phone: [phone] Performed at: [address] [id number] Performing Lab: see note LC - [facility] LB PROF 14(COMP METB) Reviewed date:11/29/2024 03:22:35 PM Interpretation: Performing Lab: Notes/Report: [facility] , Sodium 143 136-145 mmol/L Potassium [...] 1.2 Performing Lab: see note ML - [facility] LB TSH Reviewed date:11/29/2024 03:22:35 PM Interpretation: Performing Lab: Notes/Report: [facility] , Thyroid Stimulating Hormone 0.274 0.358-3.740 uIU/mL Performing Lab: see note ML - [facility] LB Erythrocyte Sedimentation Ra te Reviewed date:11/29/2024 03:22:35 PM Interpretation: Performing Lab: Notes/Report: [facility] , Erythrocyte Sedimentation Rate 11 <=30 mm/hr Performing Lab: see note ML - [facility] LB Calprotectin, Fecal Reviewed date:11/30/2024 08:24:19 PM Interpretation: Performing Lab: Notes/Report: [facility] , Calprotectin, Fecal <5 0-120 ug/g >120 ug/g Abnormal Repeat as clinically Concentration Interpretation Follow-Up >50 -120 ug/g Borderline Re-evaluate in 4-6 weeks < 5 - 50 ug/g Normal None College Dean: Yanique Storey MD, Phone: [phone] [address] [place], [place] [phone] indicated [facility] Performing Lab: see note - [facility] LB GLYCOHEMOGLOBIN A1C Reviewed date:02/28/2025 12:34:24 PM Interpretation: Performing Lab: Notes/Report: [facility] , Glycohemoglobin A1C 5.7 4.5-6.2 % > 7.0 ADA RECOMMENDED LIMIT 4.0 - 6.0 ACTION SUGGESTED ADA THERAPEUTIC TARGET < 7.0 Estimated Average Glucose 117 Performing Lab: see note ML - [facility] LB IRON Reviewed date:02/28/2025 12:34:24 PM Interpretation: Performing Lab: Notes/Report: [facility] , Iron 65.0 50.0-170.0 ug/dL Performing Lab: see note ML - [facility] UA RANDOM W or MICROSCOPIC Reviewed date:04/01/2025 06:08:51 PM Interpretation: Performing Lab: Notes/Report: [facility] , Color Urine LT. YELLOW YELLOW Clarity Urine CLEAR CLEAR Specific [place] Urine 1.025 1.005-1.025 pH Urine 6.0 5.0-9.0 Protein Urine NEGATIVE NEG/TRACE mg/dL Glucose Urine UA NEGATIVE NEGATIVE mg/dL Bilirubin Urine NEGATIVE NEGATIVE Ketones Urine NEGATIVE NEGATIVE mg/dL Blood Urine SMALL NEGATIVE Nitrite Urine NEGATIVE NEGATIVE Urobilinogen Urine 0.2 0.2-1.0 EU/dL Leukocyte Esterase Urine NEGATIVE NEGATIVE WBC Urine NONE SEEN NONE SEEN #/HPF RBC Urine 2-5 0-2 #/HPF Bacteria Urine TRACE NONE SEEN #/HPF Mucus Urine NONE SEEN NONE SEEN Squamous Epithelial Cell Urine FEW NONE/RARE #/LPF Crystals Seen? None Seen None Seen #/HPF Cast Seen? NONE SEEN NONE SEEN #/LPF Urine Culture Indicated ALREADY ORDERED Performing Lab: see note ML - [facility] Urine Culture - FR Reviewed date:04/05/2025 07:29:08 PM Interpretation: Performing Lab: Notes/Report: [facility] , Urine Culture - [facility] See Below For Report No Growth 2 Days Urine Culture - [facility] Urine Culture - [facility] No Growth 2 Days Urine Culture - [facility] Urine Culture [facility] Testing performed a [facility] No Growth 2 Days Urine Culture - [facility] Urine Culture - [facility] [address] [place] [address] No Growth 2 Days Urine Culture - [facility] Performing Lab: see note ML - [facility] LB HIV Ab/p24 Ag with Reflex Reviewed date:11/29/2024 03:22:35 PM Interpretation: Performing Lab: Notes/Report: [facility] , HIV Ab/p24 Ag Screen Non Reactive Non Reactive detected. There is no laboratory evidence of HIV infection. College Dean: Eugene Ricketts PhD, Phone: [phone] HIV Negative Performed at: [facility]-1/HIV-2 antibodies and HIV-1 p24 antigen were NOT [address] [place], [place] [phone] Performing Lab: see note - [facility] LB CRP Reviewed date:11/29/2024 03:22:35 PM Interpretation: Performing Lab: Notes/Report: [facility] , C Reactive Protein <0.50 <=0.50 mg/dL Performing Lab: see note ML - [facility] LB CBC AUTO DIFF Reviewed date:11/29/2024 03:22:35 PM Interpretation: Performing Lab: Notes/Report: [facility] , White Blood Count 4.6 4.0-11.0 [...] 0.00-0.03 10 3/uL Performing Lab: see note ML - [facility] LB TSH Reviewed date:05/07/2024 09:00:18 PM Interpretation: Performing Lab: Notes/Report: [facility] , Thyroid Stimulating Hormone 0.238 0.358-3.740 uIU/mL Performing Lab: see note ML - [facility] PROF CHEM 8 (BAS METB) Reviewed date:05/07/2024 09:00:18 PM Interpretation: Performing Lab: Notes/Report: [facility] , Sodium 141 136-145 mmol/L Potassium 3.8 3.5-5.1 mmol/L Chloride 105 98-107 mmol/L Carbon Dioxide 26.6 21.0-32.0 mmol/L Anion Gap 13.2 Glucose 89 74-106 mg/dL Blood Urea Nitrogen 10.0 7.0-18.0 mg/dL Creatinine 0.65 0.55-1.02 mg/dL Estimated GFR ( Iesha >60 >=60 Estimated GFR (Non- Keysha >60 >=60 BUN Creatinine Ratio 15.4 Calcium 9.2 8.5-10.1 mg/dL Performing Lab: see note ML - [facility] LB LIPID PROFILE Reviewed date:05/07/2024 09:00:18 PM Interpretation: Performing Lab: Notes/Report: [facility] , Triglycerides 53 <=150 mg/dL Cholesterol 242 <=200 mg/dL HDL Cholesterol 76 40-60 mg/dL <40 mg/dl - HIGH CARDIOVASCULAR RISK > or =60 mg/dl - LOW CARDIOVASCULAR RISK LDL Cholesterol Calculated 156.0 160-189 mg/dl HIGH <100 mg/dl OPTIMAL 130-159 mg/dl BORDERLINE HIGH >190 mg/dl VERY HIGH 100-129 mg/dl NEAR OR ABOVE OPTIMAL VLDL CHOLESTEROL 10.6 Chol HDL Ratio 3.2 7.1 - 11.0 MODERATE RISK 4.4 - 7.1 AVERAGE RISK 3.3 - 4.4 LOW RISK >11.0 HIGH RISK Performing Lab: see note - [facility] LB LAB TESTING Reviewed date:05/10/2024 10:19:03 PM Interpretation: Performing Lab: Notes/Report: [id number] Growth Hormone [facility] , Miscellaneous Test COMMENT . College Dean: Yanique Storey MD, Phone: [phone] Reference Range: 0.0-10.0 Growth Hormone, Serum 0.4 ng/mL [address] [phone] [address] [place] [phone] Test Ordered: [id number] Growth Hormone, Serum Performed at: - [facility] [place] Performed at: [facility] [place] College Dean: Eugene Ricketts PhD, Phone: [phone] Performing Lab: see note - [facility] LB CBC AUTO DIFF Reviewed date:02/28/2025 12:34:24 PM Interpretation: Performing Lab: Notes/Report: [facility] , White Blood Count 5.3 4.0-11.0 10 3/uL Red Blood Count 4.10 4.20-5.40 10 6/uL Hemoglobin 12.1 12.0-16.0 g/dL Hematocrit 36.5 36.0-48.0 % Mean Corpuscular Volume 89.0 81.0-99.0 fL Mean Corpuscular Hemoglobin 29.5 26.7-34.0 pg Mean Corpuscular HGB Conc 33.2 29.9-35.2 g/dL Red Cell Distribution Width 12.3 11.0-15.0 % Platelet Count 244 150-450 10 3/uL Mean Platelet Volume 10.4 9.5-13.5 fL Neutrophils Percent Auto 47.1 43.0-75.0 % Lymphocytes Percent Auto 43.3 20.5-60.0 % Monocytes Percent Auto 6.2 1.7-12.0 % Eosinophils Percent Auto 2.1 0.9-7.0 % Basophils Percent Auto 1.1 0.2-2.0 % Immature Granulocytes Pct Auto 0.2 0.0-0.5 % Neutrophils Absolute Auto 2.5 1.4-6.5 10 3/uL Lymphocytes Absolute Auto 2.3 1.2-3.8 10 3/uL Monocytes Absolute Auto 0.3 0.3-0.8 10 3/uL Eosinophils Absolute Auto 0.1 0.0-0.7 10 3/uL Basophils Absolute Auto 0.1 0.0-0.1 10 3/uL Immature Granulocytes Abs Auto 0.01 0.00-0.03 10 3/uL Performing Lab: see note ML - [facility] LB Celiac Disease Comprehensive Reviewed date:11/30/2024 08:24:19 PM Interpretation: Performing Lab: Notes/Report: [facility] , Deamidated Gliadin Abs, IgA 3 0-19 units Weak Positive 20 - 30 Negative 0 - 19 Moderate to Strong Positive >30 Deamidated Gliadin Abs, IgG 2 0-19 units Weak Positive 20 - 30 Negative 0 - 19 Moderate to Strong Positive >30 t-Transglutaminase (tTG) IgA <2 0-3 U/mL Weak Positive 4 - 10 ated that endomysial IgA antibodies have over 99% Positive >10 as the endomysial antigen. Studies have demonstr- Negative 0 - 3 Tissue Transglutaminase (tTG) has been identified specificity for gluten sensitive enteropathy. t-Transglutaminase (tTG) IgG 3 0-5 U/mL Negative 0 - 5 Positive >9 Weak Positive 6 - 9 Endomysial Antibody IgA Negative Negative Immunoglobulin A, Qn, Serum 101 87-352 mg/dL Performed at: [facility] College Dean: Eugene Ricketts PhD, Phone: [phone] [address] [place], [place] [phone] Performing Lab: see note LC - [facility] LB MM tomosynthesis screening B I Reviewed date:02/28/2025 12:34:24 PM Interpretation: Performing Lab: Notes/Report: Source Facility: [facility] [place] [address] [place] [address] Mammography Report Signed Patient: SHERIE CUNNINGHAM MR#: [id number] : 1955 Acct:[id number] Age/Sex: 69 / F ADM Date: 02/26/25 Loc: MAMMO Attending Dr: Greg Peterson M.D. Ordering Physician: Greg Peterson M.D. Results: Date of Service: 02/26/25 Follow Up: Procedure(s): MM tomosynthesis screening BI Accession Number(s): [id number] cc: Greg Peterson M.D. Patient Name: SHERIE CUNNINGHAM MR#: [id number] : 1955 Exam Date: 02/26/2025 Ordering Doctor: DR GREG PETERSON . RADIOLOGY REPORT PROCEDURE: MM TOMOSYNTHESIS SCREENING BI COMPARISON: MG MAMM SCREEN ADORE W CAD, 03/14/2020. MG MAMM SCREEN ADORE W CAD, 07/29/2018. MG MAMM SCREEN ADORE W CAD, 06/10/2017. MG MAMM ADORE SCRN W CAD DIG, 07/20/2013. INDICATIONS: Screening Calculator Name NCI Breast Cancer Risk Assessment Tool 5 Year Breast Cancer Risk 3.50% Lifetime Breast Cancer Risk 11.50% Personal Breast Cancer No Personal Ovarian Cancer No Treatments None Family Cancers Aunt-maternal with breast cancer at age 50; Aunt-maternal with ovarian cancer at age 50; Mother with skin cancer at age 60; Mother with breast cancer at age 78; Mother with stomach cancer at age 80; Father with skin cancer at age 75; Brother with skin cancer at age 60; Grandfather-paternal with unknown cancer at age 80. LOCATION: [facility] BREAST COMPOSITION: The breasts are heterogeneously dense,which may obscure small masses. FINDINGS: RIGHT BREAST: No significant suspicious finding. LEFT BREAST: No significant suspicious finding. DIAGNOSTIC CATEGORY 1--NEGATIVE. RECOMMENDATIONS: ROUTINE MAMMOGRAM AND CLINICAL EVALUATION IN 12 MONTHS. PLEASE NOTE: A NORMAL MAMMOGRAM DOES NOT EXCLUDE THE POSSIBILITY OF BREAST CANCER. A CLINICALLY SUSPICIOUS PALPABLE LUMP SHOULD BE BIOPSIED. Dictated by: Cedric Caal DO on 02/26/2025 at 13:58 Approved by: Cedric Caal DO on 02/26/2025 at 14:02 Dictated By: Cedric Caal D.O. Signed By: 02/26/25 140 DD/ 01 TD/TT: Fire Prevention Captain: [place] [address] Mammography Report Signed Patient: DEEP CUNNINGHAM MR#: [id number] : 1955 Acct:[id number] Age/Sex: 69 / F ADM Date: 02/26/25 Loc: MAMMO Attending Dr: Katie Peterson M.D. Ordering Physician: Greg Peterson M.D. Results: Date of Service: 02/26/25 Follow Up: Procedure(s): MM tomosynthesis screening BI Accession Number(s): [id number] cc: Greg Peterson M.D. Patient Name: SHERIE CUNNINGHAM MR#: [id number] : 1955 Exam Date: 02/26/2025 Ordering Doctor: DR GREG PETERSON . RADIOLOGY REPORT PROCEDURE: MM TOMOSYNTHESIS SCREENING BI COMPARISON: MG MAMM SCREEN ADORE W CAD, 03/14/2020. MG MAMM SCREEN ADORE W CAD, 07/29/2018. MG MAMM SCREEN ADORE W CAD, 06/10/2017. MG MAMM ADORE SCRN W CAD DIG, 07/20/2013. INDICATIONS: Screening Calculator Name NCI Breast Cancer Risk Assessment Tool 5 Year Breast Cancer Risk 3.50% Lifetime Breast Canc er Risk 11.50% Personal Breast Canc er No Personal Ovarian Cancer No Treatments None Family Cancers Aunt-maternal with breast cancer at age 50; Aunt-maternal with ovarian cancer at age 50; Mother with skin cancer at age 60; Mother with breast cancer at age 78; Mother with stomach cancer at age 80; Father with skin cancer at age 7 5; Brother with skin cancer at age 60; Grandfather-paternal with unknown cancer at age 80. LOCATION: [facility] BREAST COMPOSITION: The breasts are heterogeneously dense,which may obscure small masses. FINDINGS: RIGHT BREAST: No significant suspicious finding. LEFT BREAST: No significant suspicious finding. DIAGNOSTIC CATEGORY 1--NEGATIVE. RECOMMENDATIONS: ROUTINE MAMMOGRAM AN D CLINICAL EVALUATION IN 12 MONTHS. PLEASE NOTE: A ADA L MAMMOGRAM DOES NOT EXCLUDE THE POSSIBILITY OF BREAST CANCER. A CLINICALLY SUSPICIOUS PALPABLE LUMP SHOULD BE BIOPSIED. Dictated by: Cedric Caal DO on 02/26/2025 at 13:58 Approved by: Cedric Caal DO on 02/26/2025 at 14:02 Dictated By: Cedric Caal D.O. Signed By: 02/26/25 1403 DD/ 1402 TD/TT: Fire Prevention Captain: TSH Reviewed date:02/28/2025 12:34:24 PM Interpretation: Performing Lab: Notes/Report: [facility] , Thyroid Stimulating Hormone 0.224 0.358-3.740 uIU/mL Performing Lab: see note - [facility] LB T4 Reviewed date:02/28/2025 12:34:24 PM Interpretation: Performing Lab: Notes/Report: [facility] , T4 Thyroxine 9.00 4.80-13.90 ug/dL Performing Lab: see note [facility] PROF 14(COMP METB) Reviewed date:02/28/2025 12:34:24 PM Interpretation: Performing Lab: Notes/Report: [facility] , Sodium 143 136-145 mmol/L Potassium 3.8 3.5-5.1 mmol/L Chloride 104 98-107 mmol/L Carbon Dioxide 29.2 21.0-32.0 mmol/L Anion Gap 13.6 Glucose 90 74-106 mg/dL Blood Urea Nitrogen 13.0 7.0-18.0 mg/dL Creatinine 0.65 0.55-1.02 mg/dL Estimated GFR ( Iesha >60 >=60 mL/min/1.73m 2 Estimated GFR (Non- Keysha >60 >=60 mL/min/1.73m 2 BUN Creatinine Ratio 20.0 Calcium 9.3 8.5-10.1 mg/dL Bilirubin Total 0.4 0.2-1.0 mg/dL Aspartate Amino Transferase 11 15-37 U/L Alanine Aminotransferase 12 14-59 U/L Alkaline Phosphatase 76 46-116 U/L Total Protein 7.2 6.4-8.2 g/dL Albumin Level 3.9 3.4-5.0 g/dL Globulin 3.3 Albumin Globulin Ratio 1.2 Performing Lab: see note - [facility] LB LIPID PROFILE Reviewed date:02/28/2025 12:34:24 PM Interpretation: Performing Lab: Notes/Report: [facility] , Triglycerides 75 <=150 mg/dL Cholesterol 232 <=200 mg/dL HDL Cholesterol 76 40-60 mg/dL > or =60 mg/dl - LOW CARDIOVASCULAR RISK <40 mg/dl - HIGH CARDIOVASCULAR RISK LDL Cholesterol Calculated 141.0 <100 mg/dl OPTIMAL 130-159 mg/dl BORDERLINE HIGH 160-189 mg/dl HIGH 100-129 mg/dl NEAR OR ABOVE OPTIMAL >190 mg/dl VERY HIGH VLDL CHOLESTEROL 15.0 Chol HDL Ratio 3.1 7.1 - 11.0 MODERATE RISK >11.0 HIGH RISK 3.3 - 4.4 LOW RISK 4.4 - 7.1 AVERAGE RISK Performing Lab: see note ML - [facility] LB FREE T3 Reviewed date:02/28/2025 12:34:24 PM Interpretation: Performing Lab: Notes/Report: [facility] , Free T3 3.19 2.18-3.98 pg/mL Performing Lab: see note ML - [facility] LB Reason For Referral Diagnosis 1 Irritable bowel (K58 .9) Diagnosis 2 Right upper quadrant abdominal pain (R10.11) Diagnosis 3 Left lower quadrant abdominal pain (R10.32) Referral Organization [facility] Referring Provider First Name Lennox Referring Provider Last Name Ash Referring Provider Speciality Family Med icine Referred Provider FPG, Gastroenterolog y Referred Provider Specialty Gastroentero logy Referral Priority Routine Medications Medication SIG (Take, Route, Frequency, Duration) Notes Start Date End Date Status Melatonin PRN Active Pepcid 40 MG 1 tablet Orally bid for 30 days 01/06/2024 Active Coreg 3.125 MG 1 tablet with food Orally Twice a day for 30 day(s) 03/22/2025 Active Sucralfate 1 GM 1 tablet on an empty stomach Orally qid for 10 days 04/30/2024 Active Ventolin HFA 108 (90 Base) MCG/ACT 2 puff as needed Inhalation every 4 hrs PRN Active Albuterol Sulfate (2.5 MG/3ML) 0.083% 3 mL as needed Inhalation every 6 hrs PRN Active Aspirin 81 81 MG 1 tablet Orally Once a day PRN Active Cholecalciferol 50 MCG (2000 UT) 1 capsule Orally Once a day for 30 days 04/05/2025 Active Levsin/SL 0.125 MG 1 tablet under the tongue and allow to dissolve as needed Sublingual AC and HS 10/09/2023 Active Calcium 600 MG 1 tablet with meals Orally Twice a day for 30 days 04/05/2025 Active Amoxicillin-Pot Clavulanate 875-125 MG 1 tablet Orally every 12 hrs for 10 days 04/05/2025 Active Ezetimibe 10 MG 1 tablet Orally Once a day Active Social History Tobacco Use: Social History [...] Problem Status W/U Status Risk Notes Problem 10181671 Essential (primary) hypertension (I10) Active confirmed Problem 605602509 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) Active confirmed Problem 99189079 Angina pectoris with documented spasm (I20.1) Active confirmed Problem Fibromyalgia (002529748) Fibromyalgia (M79.7) Active confirmed Problem COPD - Chronic obstructive pulmonary disease (08482309) COPD (chronic obstructive pulmonary disease) (J44.9) Active confirmed Problem Gastroesophageal reflux disease (217080124) GERD (gastroesophagea l reflux disease) (K21.9) Active confirmed Problem Dyslipidemia (637589863) Dyslipidemia (E78.5) Active confirmed Problem Anxiety (59353915) Anxiety (F41.9) Active confi rmed Problem Essential hypertension (95851890) Benign essential HTN (I10) Active confirmed Problem Gastroesophageal reflux disease (498879206) GERD without esophagitis (K21.9) Active confirmed Problem Lumbar radiculopathy (938066337) Lumbar radiculopathy (M54.16) Active confirmed Problem Gastritis (7430328) Gastritis (K29.70) Active confirmed Problem Narcolepsy (06244690) Narcolepsy (G47.419) Active confirmed Problem Benign neoplasm of cerebral meninges (00167257) Meningioma (D32.9) Active confirmed Problem Fibromyalgia (151100604) Fibromyalgia (M79.7) Active confirmed Problem Streptococcal sore throat (disorder) (62682947) Strep pharyngitis (J02.0) Active confirmed Problem Right upper quadrant pain (222098098) Right upper quadrant abdominal pain (R10.11) Active confirmed Problem Non-infective enteritis and colitis (581235014) Acute colitis (K52.9) Active confirmed Problem Irritable bowel (78605012) Irritable bowel (K58.9) Active confirmed Problem Chronic obstructive pulmonary disease (26685190) Acute chronic obstructive pulmonary disease with respiratory distress (J44.9) Active confirmed Problem Prinzmetal angina (84067937) Angina pectoris, variant (I20.1) Active confirmed Problem Left lower quadrant pain (563182863) Left lower quadrant abdominal pain (R10.32) Active confirmed Problem Gastroesophageal reflux disease with esophagitis (disorder) (718358963) Gastro-esophagea l reflux disease with esophagitis, without bleeding (K21.00) Active confirmed Vital Signs Temperature 98.9 degrees Fahrenheit 08/07/2024 Blood pressure diastolic 70 mm Hg 04/01/2025 Height 63 in 04/01/2025 Blood pressure systolic 140 mm Hg 04/01/2025 Weight 153.2 lbs 03/22/2025 BMI 27.14 kg/m2 03/22/2025 Procedures Procedure Date Ordered Date Performed Result Body Sit e Colonoscopy 04/22/2024 undefined Encounters Encounter Location Date Provider Diagnosis [address] [address] 04/30/2024 Lennox Hoy Irritable bowel K58. 9 and GERD without esophagitis K21.[address] [address] 08/07/2024 Lennox Hoy Acute bronchitis, unspecified organism J20.9 and COPD (chronic obstructive pulmonary disease) J44.[address] [address] 02/05/2025 Lennox Hoy COPD (chronic obstructive pulmonary disease) J44.9 ; Fibromyalgia M79.7 ; Benign essential HTN I10 and Meningioma D32.[address] [address] 03/22/2025 Lennox Hoy Angina pectoris, celeste iant I20.1 and Lumbar radiculopathy M54.[address] [address] 03/26/2025 Lennox Hoy Benign essential HTN I10 [facility] [address] [place] [facility] [place] [place] [address] 04/01/2025 Lennox Hoy Frequency of urinati on R35.0 [facility] [address] [place] [facility] [place] [place] [address] 04/06/2024 Lennox Hoy [facility] [address] [place] [place] [address] 05/04/2024 Lennox Hoy Irritable bowel K58 .9 ; Left lower quadrant abdominal pain R10.32 and Right upper quadrant abdominal pain R10.11 [facility] [address] [place] [facility] [place] [place] [address] 06/11/2024 Lennox Hoy [facility] [address] [place] [facility] [place] [address] 02/05/2025 Lennox Hoy [facility] [address] [place] [facility] [place] [place] [address] 02/28/2025 Lennox Hoy [facility] [address] [place] [facility] [place] [place] [address] 03/11/2025 Lennox Hoy COPD (chronic obstructive pulmonary disease) J44.9 [facility] [address] [place] [facility] [place] [place] [address] 03/11/2025 Lennox Hoy [facility] [address] [place] [place] [address] 03/26/2025 Lennox Hoy [facility] [address] [place] [place] [address] 04/01/2025 Lennox Hoy Frequency R35.0 [facility] [address] [place] [facility] [place] [place] [place] [address] 04/01/2025 Lennox Hoy [facility] [address] [facility] [place] [address] 04/05/2025 Lennox Hoy Lumbar radiculopath y M54.16 Assessments Encounter Date Diagnosis (ICD Code) Assessment Notes Treatment Notes Treatment Clinical Notes Section Notes 04/30/2024 GERD without esophagitis (ICD-10 - K21.9) 04/30/2024 Irritable bowel (ICD-10 - K58.9) disucssed may have anee fo xifaxan 08/07/2024 COPD (chronic obstructive pulmonary disease) (ICD-10 - J44.9) 08/07/2024 Acute bronchitis, unspecified organism (ICD-10 - J20.9) Rest and drink more liquids, especially water. You may use a humidifier or vaporizer to help keep the drainage moist. Wsaw-vlp-wbttnxf Nasal Saline may help the stuffy and runny nose. Use Ibuprofen and or Tylenol as needed for fever, chills, body aches or pain. Children 5 years old should not be given qyjp-jps-ncyfpog cough and cold medications such as guaifenesin and dextromethorphan. If you're over age 5, you may try ppcq-rog-jplsrsh cold medications such as guaifenesin and dextromethorphan, [...] to the emergency room or call 911 02/05/2025 COPD (chronic obstructive pulmonary disease) (ICD-10 - J44.9) 02/05/2025 Fibromyalgia (ICD-10 - M79.7) 03/22/2025 Lumbar radiculopathy (ICD-10 - M54.16) injections 03/22/2025 Angina pectoris, variant (ICD-10 - I20.1) 03/26/2025 Benign essential HTN (ICD-10 - I10) 04/01/2025 Frequency of urination (ICD-10 - R35.0) 05/04/2024 Irritable bowel (ICD-10 - K58.9) 05/04/2024 Left lower quadrant abdominal pain (ICD-10 - R10.32) 03/11/2025 COPD (chronic obstructive pulmonary disease) (ICD-10 - J44.9) 04/01/2025 Frequency (ICD-10 - R35.0) 04/05/2025 Lumbar radiculopathy (ICD-10 - M54.16) 05/04/2024 Right upper quadrant abdominal pain (ICD-10 - R10.11) 02/05/2025 Benign essential HTN (ICD-10 - I10) 02/05/2025 Meningioma (ICD-10 - D32.9) 03/22/2025 Other Recommended to rest and use a heating pad on the area. Take NSAIDs for pain as needed Plan Of Treatment Pending Test Test Name Order Date CMP (COMPLETE METABOLIC PANEL) 4 UA (URINALYSIS, COMPLETE) 04/01/2025 CULTURE, URINE w SENSITIVITY 04/01/2025 HEMOGLOBIN A1C (GLYCO) 02/05/2025 HEMOGLOBIN A1C (GLYCO) 10/09/2023 IRON, TOTAL 10/09/2023 IRON, TOTAL 02/05/2025 LIPID PANEL (CHOL/TRIG/HDL/LDL) 10/09/19 24 LIPID PANEL (CHOL/TRIG/HDL/LDL) 02/06/20 25 CBC WITH DIFF 10/09/2023 VITAMIN D, 25 LEVEL (TOTAL) 10/09/2023 MRI Brain w/wo contrast * 10/25/2023 Urinalysis Microscopic 10/09/2023 NM HIDA Hepatobiliary Imaging W EF 01/12 STOOL OCCULT BLOOD 02/05/2025 STOOL OCCULT BLOOD 10/09/2023 CULTURE URINE 10/09/2023 MRI LSPINE WO CON 04/05/2025 US ABD 01/06/2024 XR ABD FLAT UP_PA CH 10/09/2023 XR DEXA BONE DENSITY 02/05/2025 XR LSPINE 2_3 VIEWS 04/05/2025 THYROID PANEL (T4/TSH/FREE T3) THYROID PANEL (T4/TSH/FREE T3) 4 MM screening mammo BI 02/05/2025 URINALYSIS MICROSCOPIC 04/01/2025 CMP (COMP MET HINES) w/eGFR CKD-EPI 2024 CBC WITH DIFF 02/05/2025 Insurance Providers Payer Name Payer Address Payer Phone Subscriber Number Group Number Insured Name Patient Relationship to Insured Coverage Start Date Coverage End Date [place] [address] [place] [address] [id number] Sherie Cunningham Self - patient is the insured 2 [place] 2ND INS [address] [facility] [place] [id number] Sherie Cunningham Self - patient is the insured 2 Medications Administered Medication Instructions Date of Administration Dosage Notes Ketorolac Tromethamine 03/22/2025 60 mg Orphenadrine Citrate 03/22/2025 60 mg Triamcinolone 40 mg/ml 03/22/2025 120 mg Medical (General) History Medical History History ICD Code Anxiety F41.9 Colitis K52.9 COPD (chronic obstructive pulmonary dise ase) J44.9 COVID-19 U07.1 Cervical disc disease M50.90 Fibromyalgia M79.7 GERD (gastroesophageal reflux disease) K 21.9 Hyperlipidemia E78.5 Hypertension I10 Insomnia G47.00 Lumbar radiculopathy M54.16 Meningioma D32.9 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
--- OUTSIDE RECORDS SUMMARY | 2025-04-06 10:17 | XMS_ITS | Clinical Summary ---
Author Organization [facility] Address [address] [place] [address] Care Team Providers Care Supervisor Green End Department Name Role Phone Joaquin Aleman MD Primary Care Provider [phone] Allergies Active Allergy Reactions Criticality Noted Date Comments Amlodipine Swelling 10/17/2023 Coconut 08/27/2022 Onion 08/27/2022 Medications albuterol 90 mcg/actuation inhaler INHALE 2 PUFFS BY MOUTH 4 TIMES A DAY Active nitroglycerin (Nitrostat) 0.3 mg SL tabletIndications:P rinzmetal's angina Place 1 tablet (0.3 mg) under the tongue every 5 (five) minutes if needed for chest pain. 100 tablet 1 3 Active pantoprazole (ProtoNix) 40 mg EC tablet [...] mg tablet Take 40 mg by mouth. 4 Active isosorbide mononitrate ER (Imdur) 30 mg 24 hr tabletIndications:P rinzmetal angina,Primary hypertension Take 1 tablet (30 mg) by mouth once daily in the morning. Do not crush or chew. 90 tablet 3 4 05/08/20 25 Active ezetimibe (Zetia) 10 mg tabletIndications:M ixed hyperlipidemia Take 1 tablet (10 mg) by mouth in the morning. 90 tablet 3 4 05/08/20 25 Active lisinopril 5 mg tabletIndications:E ssential (primary) hypertension TAKE 1 TABLET BY MOUTH EVERY DAY 90 tablet 3 5 Active Active Problems Problem Noted Date Diagnosed [...] unchanged from prior study, left cerebellar meningioma 5m12h0hm. She is following with endocrinology and sees [...] Type Department Care Team Description 02/05/2025 Telephone [facility] [address] [place] [address] Nasrin Orozco MA 02/01/2025 [facility] [address] [place] [address] Jarad Almazan MD Essential (primary) hypertension from [...] Care Team (Late st Contact Info) Description 04/19/2025 1:45 PM EDT Office Visit [facility] [address] [place] [address] Jarad Almazan MD [address] [facility] [address] [facility] [place] [address] Health Maintenance Due Date Last Done Comments CT Colonography 1957 FIT-DNA 1957 FIT 1957 FOBT 1955 Medicare Annual Wellness (AWV) 1955 Sigmoidoscopy 1955 Depression Screening 1969 Pneumococcal Vaccine: 50+ Years (1 of 2 - PCV) 1976 Adult Tetanus 1979 Mammogram 1997 Zoster Vaccines (1 of 2) 2007 Fall Risk Screening 2022 COVID-19 Vaccine (1 - 2023-2 5 season) 2024 Influenza Vaccine (#1) 2025 Colonoscopy 06/17/2029 06/17/2019, 12/06/2005 Colorectal Cancer [...] to complete this topic Insurance MEDICARE [place] Care Teams Supervisor Green End Department Relationship Specialty Start Date End Date Joaquin Aleman MD [address] [place], [place] [address] [place] [address] PCP - General 08/27/22
--- NOTE | 2025-04-06 10:19 | XR_ITS ---
[address] [address] Patient Name: OUMAR CHEN MRN: [id number] date: 1955 Sex: F Assigned Patient Location: [facility] Current Patient Location: [facility] Accession/Order Number: [id number] Exam Date: 04/06/2025 10:44 Report Date: 04/06/2025 10:48 At the request of: GREG PETERSON MD Procedure: XR lumbar spine 2-3V 2 views Lumbar Spine HISTORY: Low back pain and right hip pain for 2 months COMPARISON: 08/24/2022 POSTSURGICAL CHANGES: None BONY ALIGNMENT: Adequate HYPERMOBILITY:No bending imaging. LISTHESIS:Mild progression 4 mm L4-L5 anterolisthesis. FRACTURE: None DEGENERATIVE CHANGES: Mild spondylosis. Moderate severe facet degeneration. SOFT TISSUES: Unremarkable BONY MINERALIZATION:Adequate XR/XR lumbar spine 2-3V IMPRESSION: Extensive lower lumbar facet degeneration redemonstrated. Progressive 4 mm L4-5 anterolisthesis. Impression dictated by: Cedric Caal M.D. 04/06/2025 10:48 AM Dictation Location: [place] [address] Electronically authenticated by: [id number] Y Date: 04/06/2025 10:48
== END 2025-04-06 10:12 | disposition home or self-care (01) ==
LOC: RAD 10:14
PROVIDERS: PCP Family Medicine; Visit Provider Family Medicine
DX: M54.16 Radiculopathy, lumbar region (principal); M43.16 Spondylolisthesis, lumbar region; M51.369 Other intervertebral disc degeneration, lumbar region without mention of lumbar back pain or lower extremity pain
CPT/HCPCS: 72100

== ENCOUNTER 2025-04-20 13:42 | Outpatient (OUT) | payer MEDICARE, MEDICAID, SELFPAY ==
--- NOTE | 2025-04-20 13:45 | MR_ITS ---
The [address] [address] Patient Name: OUMAR CHEN MRN: [id number] date: 1955 Sex: F Assigned Patient Location: MRI Current Patient Location: MRI Accession/Order Number: [id number] Exam Date: 04/20/2025 22:52 Report Date: 04/20/2025 22:57 At the request of: GREG PETERSON MD Procedure: MR lumbar spine wo con MRI lumbar spine performed without contrast INDICATION: Lumbar radiculopathy. FINDINGS: Lumbar vertebral heights, alignment and bone marrow signal is unremarkable. Anterolisthesis L4-L5 identified measuring 4 mm. Likely caused by facet arthropathy. Minimal intervertebral space narrowing L4-S1. Conus medullaris terminates normally mid L1. T12-L1: Unremarkable. L1-2: Minor broad-based disc bulge and facet arthropathy. Canal and foramina are patent. L2-3: Facet arthropathy. Disc desiccation . No significant canal or foraminal narrowing. L3-4: Broad-based disc bulge with stap-sd-dgjuhmnw facet arthropathy. Mild neural foraminal narrowing. Canal is patent. L4-5: Anterolisthesis with uncovering of the posterior disc due to facet arthropathy. Mild broad base disc bulge. Moderate to severe facet arthropathy. Qmuh-we-tgdsjllb foraminal narrowing. Canal is patent. L5-S1: Circumferential disc bulge with rsjg-iw-pptkicma facet arthropathy. Mild to moderate right and minimal left neural foramina narrowing. Canal is patent. MR/MR lumbar spine wo con Impression: Overall mild multilevel degenerative change without high-grade canal or neural foraminal narrowing. Impression dictated by: Allan Nance M.D. 04/20/2025 10:57 PM Dictation Location: [place] [address] Electronically authenticated by: [id number] Y Date: 04/20/2025 22:57
== END 2025-04-20 13:43 | disposition home or self-care (01) ==
LOC: MRI 13:42
PROVIDERS: PCP Family Medicine; Visit Provider Family Medicine
DX: M54.16 Radiculopathy, lumbar region (principal); M51.369 Other intervertebral disc degeneration, lumbar region without mention of lumbar back pain or lower extremity pain
CPT/HCPCS: 72148

== ENCOUNTER 2025-07-23 12:21 | Outpatient (OUT) | payer MEDICARE, MEDICAID, SELFPAY ==
--- OUTSIDE RECORDS SUMMARY | 2025-07-21 13:40 | XMS_ITS | Encounter Summary ---
Author Organization [facility] Address [address] [place] [address] Care Team Providers Care Baggage Porter Name Role Phone Joaquin Aleman MD Primary Care Provider [phone] Reason for Visit * ReasonCommentsPituitary ProblemFollow-up1.5 YRS NEW REF/LAB Encounter Details DateTypeDepartmentCare Team (Latest Contact Info)Qjxbyayakkl51/05/2025 1:40 PM ESTOffice Visit [facility] [address] [place] [address] Kameron Gracia MD [address] [place] [address] Low TSH level (Primary Dx); Rathke's cleft cyst (HCC) Social History Tobacco UseTypesPacks/DayYears UsedDateSmoking Tobacco: FormerCigarettesAlcohol UseStandard Drinks/WeekCommentsNever0 (1 standard drink = 0.6 oz pure alcohol) CommentsUnknownSex and Gender InformationValueDate RecordedSex Assigned at BirthNot on fileLegal TpqMbaqiz40/15/2023 11:02 PM EDTGender IdentityNot on fileSexual OrientationNot on filedocumented as of this encounter Last Filed Vital Signs Vital SignReadingTime TakenCommentsBlood Fhzfczxl439/7611 1:30 PM EST Uibne475007/21/2025 1:30 PM ESTTemperature--Respiratory Kodu222209/20/2024 1:30 PM ESTOxygen Nsihdehbrc65%07/21/2025 1:30 PM ESTInhaled Oxygen Concentration-- Ghqvjw70.9 kg (152 lb)07/21/2025 1:30 PM CHKZzjyco753.6 cm (5' 4 )07/21/2025 1:30 PM ESTBody [...] Plan of Treatment DateTypeDepartmentCare Team (Latest Contact Info)Tpdozoqaevw80/26/2025 2:00 PM ESTOffice Visit [facility] [address] [place] [address] Kameron Gracia MD [address] [place] [address] NameTypePriorityAssociated DiagnosesOrder ScheduleThyroglobulin AntibodyLab Routine Low TSH [...]
--- OUTSIDE RECORDS SUMMARY | 2025-07-23 12:27 | XMS_ITS | Clinical Summary ---
Author Organization [facility] Address [address] [facility] [place] [address] Care Team Providers Care Agricultural Lender Name Role Phone Joaquin Aleman MD Primary Care Provider [phone] Allergies Active AllergyReactionsCriticalityNoted DateCommentsCoconut (Cocos Nucifera) 04/15/20243995Uffov75/31/2024 Medications MedicationSigDispense QuantityRefillsLast FilledStart DateEnd DateStatus cholecalciferol (Vitamin D-3) 50 MCG (1999) capsule Take 2,000 Units by mouth DailyActive hyoscyamine (Levsin) 0.125 MG SL tablet Take 0.125 mg by mouth every 4 (four) hours if neededActive pantoprazole (ProtoNix) 40 MG EC tablet Take 40 mg by mouth in the morning. Take before meals.Active lisinopril 5 MG tablet Take 1 tablet by mouth Daily04/01/2024ctive albuterol HFA 90 mcg/act inhaler Inhale 1 puff every 8 (eight) hoursActive meclizine (Antivert) 25 MG tablet Take 25 mg by mouth 3 (three) times a day as needed for dizzinessActive erenumab (Aimovig) 70 MG/ML injection Indications:Migraine without aura and without status migrainosus, not intractableInject 1 mL (70 mg) under the skin every 28 (twenty-eight) days 1 mL ctive Additional Information Patient not taking.Reported on 07/21/2025 famotidine (Pepcid) 40 MG tablet Take 40 mg by mouth DailyActive Calcium Carbonate (CALCIUM-CARB 600 PO) Take by mouthActive carvedilol (Coreg) 3.125 MG tablet Take by mouth in the morning and in the evening. Take with meals.Active cycloSPORINE (Restasis) 0.05 % ophthalmic emulsion 1 drop in the morning and 1 drop before bedtime.Active ezetimibe (Zetia) 10 MG tablet Take 10 mg by mouth DailyActive Active Problems ProblemNoted DateDiagnosed RtkrBmtwddxt97/31/2024 Overview (04/15/2024): Headaches made up of migraines that have greatly improved once she was taken off her heart meds. Nofurther migraines and infrequent headaches. She has untreated HARDEEP which could contribute to some ofher headaches. She previously was on Elavil which [...] effective. Migraines remain infrequent. 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 She is following with endocrinology and sees them next month. 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 Fyjadfltt65/31/2024 Overview (04/15/2024): history of dizziness consistent with vertigo. She is having some increase in symptoms that occur inepisodes and described as spinning sensation and sometimes lightheadedness sensation that can occurregardless of position change. She is apprehensive about getting carotid ultrasound and TCD due to cost. Pituitary mass04/15/2024Memory mgvytc8704/15/2024 Overview (04/15/2024): The patient states that she is having short term memory issues. She states that she is not sleepingwell and is under stress which could likely be contributing. MOCA 12/31/2022 was 26/30. Memory is stable. Encounters DateTypeDepartmentCare MnwbNuoemmkbgqy17/05/2025 1:40 PM ESTOffice Visit [facility] [address] [place] [address] Kameron Gracia MD Low TSH level (Primary Dx); Rathke's cleft cyst (HCC)07/21/2025amboo flowsheet [facility] [address] [place] [address] Kameron Gracia MD from Last 3 Months Family History Medical HistoryRelationNameCommentsCancerFatherHeart diseaseFatherLung cancer FatherCancerMotherRelationNameStatusCommentsFatherAliveMotherDeceased Social History Tobacco UseTypesPacks/DayYears UsedDateSmoking Tobacco: FormerCigarettes Tobacco Cessation:Counseling Given: Not Answered Alcohol UseStandard Drinks/WeekCommentsNever0 (1 standard drink = 0.6 oz pure alcohol)CommentsUnknownSex and Gender InformationValueDate RecordedSex Assigned at BirthNot on fileLegal FzdLtriyz91/15/2023 11:02 PM EDTGender IdentityNot on fileSexual OrientationNot on file Last Filed Vital Signs Vital SignReadingTime TakenCommentsBlood Dzpfnjvu576/7607/21/2025 1:30 PM EST Gftyg309907/21/2025 1:30 PM ESTTemperature--Respiratory Dfyl025109/20/2024 1:30 PM ESTOxygen Nsdetdfcmh16%07/21/2025 1:30 PM ESTInhaled Oxygen Concentration-- Tqmcac07.9 kg (152 lb)07/21/2025 1:30 PM WXFUspego191.6 cm (5' 4 )07/21/2025 1:30 PM ESTBody Mass Index26.0907/21/2025 1:30 PM EST Plan of Treatment DateTypeDepartmentCare Team (Latest Contact Info)Gnpqvlkqpsf25/26/2025 2:00 PM ESTOffice Visit [facility] [address] [place] [address] Kameron Gracia MD [address] [place] [address] Insurance Care Teams Team MemberRelationshipSpecialtyStart DateEnd Joaquin Aleman MD PCP - GeneralFamily Medicine06/03/24
--- OUTSIDE RECORDS SUMMARY | 2025-07-23 12:27 | XMS_ITS | Encounter Summary ---
Author Organization [facility] Address [address] [place] [address] Care Team Providers Care Instructional Assistant Name Role Phone Joaquin Aleman MD Primary Care Provider [phone] Encounter Details DateTypeDepartmentCare Team (Latest Contact Info)Ydxoopkikde77/05/2025amboo flowsheet [facility] [address] [place] [address] Kameron Gracia MD [address] [place] [address] Social History Tobacco UseTypesPacks/DayYears UsedDateSmoking Tobacco: FormerCigarettesAlcohol UseStandard Drinks/WeekCommentsNever0 (1 standard drink = 0.6 oz pure alcohol) CommentsUnknownSex and Gender InformationValueDate RecordedSex Assigned at BirthNot on fileLegal EznJibfti32/15/2023 11:02 PM EDTGender IdentityNot on fileSexual OrientationNot on filedocumented as of this encounter Plan of Treatment DateTypeDepartmentCare Team (Latest Contact Info)Zywyuoweift02/26/2025 2:00 PM ESTOffice Visit [facility] [address] [place] [address] Kameron Gracia MD [address] [place] [address] documented as of this encounter Visit Diagnoses Not on filedocumented in this encounter Care Teams Team MemberRelationshipSpecialtyStart DateEnd Date Joaquin Aleman MD PCP - GeneralFamily Medicine06/03/24documented as of this encounter
--- OUTSIDE RECORDS SUMMARY | 2025-07-23 12:27 | XMS_ITS | Patient Health Record ---
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 Name Role Phone Lennox Peterson Primary Care Provider Allergies Allergen (clinical drug ingredient) Drug/Non Drug Allergy documented on EMR Reaction Allergy Type Onset Date Status amlodipine Norvasc Unknown Drug Allergy Active Results Component Value Reference Range Notes UA (Urinalysis, Dipstix only - w/o micro) Reviewed date:04/01/2025 01:32:32 PM Interpretation: Performing Lab: Notes/Report: COLOR yellow Yellow - Cait - CLARITYclearClear - ClearGLUCOSE-0 - 133 MG/DLALBUMIN-NEG - NEG MG/DLBILIRUBIN- NEG - NEG MG/DLSPECIFIC GRAVITY1.0201.001 - 1.035KETONES-NEG - NEG MG/DLBLOOD, URtracePH, UR55 - 9UROBILNOGEN-0.2 - 1 MG/DLNITRITE-NEG - NEGESTERASE (GUZMAN)-NEG - NEG MG/DLCRP Reviewed date:11/29/2024 03:22:35 PM Interpretation: Performing Lab: Notes/Report: [facility] ,C Reactive Protein<0.50<=0.50 mg/dLPerforming Lab:see noteML - [facility] LBPROF 14(COMP METB) Reviewed date:11/29/2024 03:22:35 PM Interpretation: Performing Lab: Notes/Report: [facility] ,Dimhqg527866-206 mmol/LPotassium3.63.5-5.1 mmol/TFaankgrb63263-787 mmol/LCarbon Dpmfhkv81.621.0-32.0 mmol/LAnion Gap12.1Esmqkze7439-525 mg/dLBlood Urea Nitrogen 12.07.0-18.0 mg/dLCreatinine0.850.55-1.02 mg/dLEstimated GFR ( Iesha>60 >=60 mL/min/1.73m 2Estimated GFR (Non- Keysha>60>=60 mL/min/1.73m 2BUN Creatinine Ratio14.9Wijjwmn0.58.5-10.1 mg/dLBilirubin Total0.40.2-1.0 mg/dL Aspartate Amino Bsuofaooycu6866-75 U/LAlanine Pcsgeqwekogivflh2451-89 U/L Alkaline Obtkbpqihfw1400-351 U/LTotal Protein7.56.4-8.2 g/dLAlbumin Level4.13.4- 5.0 g/dLGlobulin3.4Albumin Globulin Ratio1.2Performing Lab:see noteML - [facility] LBTSH Reviewed date:11/29/2024 03:22:35 PM Interpretation: Performing Lab: Notes/Report: [facility] ,Thyroid Stimulating Hormone0.2740.358-3.740 uIU/mLPerforming Lab:see note - [facility] LBErythrocyte Sedimentation Rate Reviewed date:11/29/2024 03:22:35 PM Interpretation: Performing Lab: Notes/Report: [facility] ,Erythrocyte Sedimentation Rate11<=30 mm/hrPerforming Lab:see note - [facility] LBHIV Ab/p24 Ag with Reflex Reviewed date:11/29/2024 03:22:35 PM Interpretation: Performing Lab: Notes/Report: [facility] ,HIV Ab/p24 Ag ScreenNon ReactiveNon Reactive HIV-1/HIV-2 antibodies and HIV-1 p24 antigen were NOT detected. There is no laboratory evidence of HIV infection. HIV Negative Performed at: [address] [id number] Packaging Technician: Eugene Ricketts PhD, Phone: [phone] Performing Lab:see note - [facility] LBCeliac Disease Comprehensive Reviewed date:11/30/2024 08:24:19 PM Interpretation: Performing Lab: Notes/Report: [facility] ,Deamidated Gliadin Abs, OcU86-81 units Negative 0 - 19 Weak Positive 20 - 30 Moderate to Strong Positive >30 Deamidated Gliadin Abs, LgP08-12 units Negative 0 - 19 Weak Positive 20 - 30 Moderate to Strong Positive >30 t-Transglutaminase (tTG) IgA<20-3 U/mL Negative 0 - 3 Weak Positive 4 - 10 Positive >10 Tissue Transglutaminase (tTG) has been identified as the endomysial antigen. Studies have demonstr- ated that endomysial IgA antibodies have over 99% specificity for gluten sensitive enteropathy. t-Transglutaminase (tTG) IgG30-5 U/mL Negative 0 - 5 Weak Positive 6 - 9 Positive >9 Endomysial Antibody IgANegativeNegativeImmunoglobulin A, Qn, Ktwqm37732-159 mg/dL Performed at: [address] [id number] Packaging Technician: Eugene Ricketts PhD, Phone: [phone] Performing Lab:see note - [facility] LBFREE T3 Reviewed date:02/28/2025 12:34:24 PM Interpretation: Performing Lab: Notes/Report: [facility] ,Free T33.192.18-3.98 pg/mLPerforming Lab:see note - [facility] LB LIPID PROFILE Reviewed date:02/28/2025 12:34:24 PM Interpretation: Performing Lab: Notes/Report: [facility] ,Lyybmvxovzrgu18<=150 mg/mZBhdtogqryqs464<=200 mg/dLHDL Bofpsqhbqwq6178-84 mg/dL > or =60 mg/dl - LOW CARDIOVASCULAR RISK <40 mg/dl - HIGH CARDIOVASCULAR RISK LDL Cholesterol Waezvalwvy808.0 <100 mg/dl OPTIMAL 100-129 mg/dl NEAR OR ABOVE OPTIMAL 130-159 mg/dl BORDERLINE HIGH 160-189 mg/dl HIGH >190 mg/dl VERY HIGH VLDL QQAOIOYLAKS46.0Chol HDL Ratio3.1 3.3 - 4.4 LOW RISK 4.4 - 7.1 AVERAGE RISK 7.1 - 11.0 MODERATE RISK >11.0 HIGH RISK Performing Lab:see note - [facility] LBPROF 14(COMP METB) Reviewed date:02/28/2025 12:34:24 PM Interpretation: Performing Lab: Notes/Report: [facility] ,Ybfpwj628604-875 mmol/LPotassium3.83.5-5.1 mmol/SPsmjifbh37557-092 mmol/LCarbon Kpjjoom56.221.0-32.0 mmol/LAnion Gap13.2Zqfbnrx6376-737 mg/dLBlood Urea Nitrogen 13.07.0-18.0 mg/dLCreatinine0.650.55-1.02 mg/dLEstimated GFR ( Iesha>60 >=60 mL/min/1.73m 2Estimated GFR (Non- Keysha>60>=60 mL/min/1.73m 2BUN Creatinine Ratio20.9Ibgvjse1.38.5-10.1 mg/dLBilirubin Total0.40.2-1.0 mg/dL Aspartate Amino Dmfkkxckbzc8275-61 U/LAlanine Dixetvcnjorfmzjw2210-91 U/L Alkaline Rbbuurwzjom9990-249 U/LTotal Protein7.26.4-8.2 g/dLAlbumin Level3.93.4- 5.0 g/dLGlobulin3.3Albumin Globulin Ratio1.2Performing Lab:see noteML - [facility] LBT4 Reviewed date:02/28/2025 12:34:24 PM Interpretation: Performing Lab: Notes/Report: [facility] ,T4 Thyroxine9.004.80-13.90 ug/dLPerforming Lab:see noteML - [facility] LBTSH Reviewed date:02/28/2025 12:34:24 PM Interpretation: Performing Lab: Notes/Report: [facility] ,Thyroid Stimulating Hormone0.2240.358-3.740 uIU/mLPerforming Lab:see noteML - [facility] LBMM tomosynthesis screening BI Reviewed date:02/28/2025 12:34:24 PM Interpretation: Performing Lab: Notes/Report: Source Facility: [facility]-[address] [place] [address] [place] [address] Mammography Report Signed Patient: SHERIE CUNNINGHAM MR#: [id number] : 1955 Acct:[id number] Age/Sex: 69 / F ADM Date: 02/26/25 Loc: MAMMO Attending Dr: Greg Peterson M.D. Ordering Physician: Greg Peterson M.D. Results: Date of Service: 02/26/25 Follow Up: Procedure(s): MM tomosynthesis screening BI Accession Number(s): [id number] cc: Greg Peterson M.D. Patient Name: SHERIE CUNNINGHAM MR#: [id number] : 1955 Exam Date: 02/26/2025 Ordering Doctor: [...] unknown cancer at age 82. LOCATION: [facility] BREAST COMPOSITION: The breasts are heterogeneously dense,which [...] Signed By: 02/26/25 1403 DD/ 1402 TD/TT: Distributor Of Directories:Urine Culture - [facility] Reviewed date:04/05/2025 07:29:08 PM Interpretation: Performing Lab: Notes/Report: [facility] ,Urine [facility] - [facility] For Report Urine Culture - [facility] No Growth 2 Days Urine Culture - [facility] Urine Culture - [facility] No Growth 2 Days Urine Culture - FRMCTesting performed at [facility] Urine Culture - [facility] No Growth 2 Days Urine Culture - [id number] [place] [address] Urine Culture - [facility] No Growth 2 Days Performing Lab:see noteML - [facility] LBGLYCOHEMOGLOBIN A1C Reviewed date:02/28/2025 12:34:24 PM Interpretation: Performing Lab: Notes/Report: [facility] ,Glycohemoglobin A1C5.74.5-6.2 % ADA RECOMMENDED LIMIT 4.0 - 6.0 ADA THERAPEUTIC TARGET < 7.0 ACTION SUGGESTED > 7.0 Estimated Average Ngiknjr947Ylgyylibrz Lab:see noteML - [facility] LB CBC AUTO DIFF Reviewed date:02/28/2025 12:34:24 PM Interpretation: Performing Lab: Notes/Report: [facility] ,White Blood Count5.34.0-11.0 10 3/uLRed Blood Count4.104.20-5.40 10 6/uL Jmsrpqjdzm40.112.0-16.0 g/wZJaeythmaby67.536.0-48.0 %Mean Corpuscular Etmxvm25.0 81.0-99.0 fLMean Corpuscular Ymjoyzkreu66.526.7-34.0 pgMean Corpuscular HGB Conc 33.229.9-35.2 g/dLRed Cell Distribution Width12.311.0-15.0 %Platelet Ghfit003 150-450 10 3/uLMean Platelet Wrjjll68.49.5-13.5 fLNeutrophils Percent Auto47.1 43.0-75.0 %Lymphocytes Percent Auto43.320.5-60.0 %Monocytes Percent Auto6.21.7- 12.0 %Eosinophils Percent Auto2.10.9-7.0 %Basophils Percent Auto1.10.2-2.0 % Immature Granulocytes Pct Auto0.20.0-0.5 %Neutrophils Absolute Auto2.51.4-6.5 10 3/uLLymphocytes Absolute Auto2.31.2-3.8 10 3/uLMonocytes Absolute Auto0.30.3-0.8 10 3/uLEosinophils Absolute Auto0.10.0-0.7 10 3/uLBasophils Absolute Auto0.10.0- 0.1 10 3/uLImmature Granulocytes Abs Auto0.010.00-0.03 10 3/uLPerforming Lab:see noteML - [facility] LBCalprotectin, Fecal Reviewed date:11/30/2024 08:24:19 PM Interpretation: Performing Lab: Notes/Report: [facility] ,Calprotectin, Fecal<50-120 ug/g Concentration Interpretation Follow-Up < 5 - 50 ug/g Normal None >50 -120 ug/g Borderline Re-evaluate in 4-6 weeks >120 ug/g Abnormal Repeat as clinically indicated Performed at: - [facility] [address] [id number] Packaging Technician: Yanique Storey MD, Phone: [phone] Performing Lab:see noteLC - [facility] LBCBC AUTO DIFF Reviewed date:11/29/2024 03:22:35 PM Interpretation: Performing Lab: Notes/Report: [facility] ,White Blood Count4.64.0-11.0 10 3/uLRed Blood Count4.224.20-5.40 10 6/uL Awmmaxikxt57.412.0-16.0 g/yHWzcgbuozgu90.136.0-48.0 %Mean Corpuscular Wlmxji66.3 81.0-99.0 fLMean Corpuscular Azanamnsfj26.426.7-34.0 pgMean Corpuscular HGB Conc 32.529.9-35.2 g/dLRed Cell Distribution Width12.311.0-15.0 %Platelet Yfver868 150-450 10 3/uLMean Platelet Kxwzyw98.49.5-13.5 fLNeutrophils Percent Auto48.0 43.0-75.0 %Lymphocytes Percent Auto43.120.5-60.0 %Monocytes Percent Auto5.21.7- 12.0 %Eosinophils Percent Auto2.20.9-7.0 %Basophils Percent Auto1.50.2-2.0 % Immature Granulocytes Pct Auto0.00.0-0.5 %Neutrophils Absolute Auto2.21.4-6.5 10 3/uLLymphocytes Absolute Auto2.01.2-3.8 10 3/uLMonocytes Absolute Auto0.20.3-0.8 10 3/uLEosinophils Absolute Auto0.10.0-0.7 10 3/uLBasophils Absolute Auto0.10.0- 0.1 10 3/uLImmature Granulocytes Abs Auto0.000.00-0.03 10 3/uLPerforming Lab:see noteML - [facility] LBXR lumbar spine 2-3V Reviewed date:04/06/2025 04:09:41 PM Interpretation: Performing Lab: Notes/Report: Source Facility: [place] [address] [place] [address] XRay Report Signed Patient: SHERIE CUNNINGHAM MR#: [id number] : 1955 Acct:[id number] Age/Sex: 69 / F ADM Date: 04/06/25 Loc: RAD Attending Dr: Greg Peterson M.D. Ordering Physician: Greg Peterson M.D. Date of Service: 04/06/25 Procedure(s): XR lumbar spine 2-3V Accession Number(s): [id number] cc: Greg Peterson M.D. [place] [address] Patient Name: SHERIE CUNNINGHAM MRN: [id number] date: 1955 Sex: F Assigned Patient Location: RAD Current Patient Location: RAD Accession/Order Number: [id number] Exam Date: 04/06/2025 10:44 Report Date: 04/06/2025 10:48 At the request of: GREG PETERSON MD Procedure: XR lumbar spine 2-3V 2 views Lumbar Spine HISTORY: Low back pain and right hip pain for 2 months COMPARISON: 08/24/2022 POSTSURGICAL CHANGES: None BONY ALIGNMENT: Adequate HYPERMOBILITY:No bending imaging. LISTHESIS:Mild progression 4 mm L4-L5 anterolisthesis. FRACTURE: None DEGENERATIVE CHANGES: Mild spondylosis. Moderate severe facet degeneration. SOFT TISSUES: Unremarkable BONY MINERALIZATION:Adequate XR/XR lumbar spine 2-3V IMPRESSION: Extensive lower lumbar facet degeneration redemonstrated. Progressive 4 mm L4-5 anterolisthesis. Impression dictated by: Cedric Caal M.D. 04/06/2025 10:48 AM Dictation Location: [place] [address] Electronically authenticated by: [id number] Y Date: 04/06/2025 10:48 Dictated By: Cedric Caal D.O. Signed By: 04/06/25 1051 DD/ 1048 TD/TT: Distributor Of Directories:[employer]ON[facility] LAI W or [employer] Reviewed date:04/01/2025 06:08:51 PM Interpretation: Performing Lab: Notes/Report: [facility] ,Color UrineLT. YELLOWYELLOWClarity UrineCLEARCLEARSpecific [place] Urine1.025 1.005-1.025pH Urine6.05.0-9.0Protein UrineNEGATIVENEG/TRACE mg/dLGlucose Urine UANEGATIVENEGATIVE mg/dLBilirubin UrineNEGATIVENEGATIVEKetones UrineNEGATIVE NEGATIVE mg/dLBlood UrineSMALLNEGATIVENitrite UrineNEGATIVENEGATIVEUrobilinogen Urine0.20.2-1.0 EU/dLLeukocyte Esterase UrineNEGATIVENEGATIVEWBC UrineNONE SEEN NONE SEEN #/HPFRBC Urine2-50-2 #/HPFBacteria UrineTRACENONE SEEN #/HPFMucus UrineNONE SEENNONE SEENSquamous Epithelial Cell UrineFEWNONE/RARE #/LPFCrystals Seen?None SeenNone Seen #/HPFCast Seen?NONE SEENNONE SEEN #/LPFUrine Culture IndicatedALREADY ORDEREDPerforming Lab:see noteML - [facility] LBIRON Reviewed date:02/28/2025 12:34:24 PM Interpretation: Performing Lab: Notes/Report: [facility] ,Iron65.050.0-170.0 ug/dLPerforming Lab:see noteML - [facility] Reviewed date:04/21/2025 12:43:15 PM Interpretation: Performing Lab: Notes/Report: Source Facility: [place] [address] Magnetic Resonance Report Signed Patient: SHERIE CUNNINGHAM MR#: [id number] : 1955 Acct:[id number] Age/Sex: 70 / F ADM Date: 04/20/25 Loc: MRI Attending Dr: Greg Peterson M.D. Ordering Physician: Greg Peterson M.D. Date of Service: 04/20/25 Procedure(s): MR lumbar spine wo con Accession Number(s): [id number] cc: Greg Peterson M.D. [place] [address] Patient Name: SHERIE CUNNINGHAM MRN: [id number] date: 1955 Sex: F Assigned Patient Location: MRI Current Patient Location: MRI Accession/Order Number: [id number] Exam Date: 04/20/2025 22:52 Report Date: 04/20/2025 22:57 At the request of: GREG PETERSON MD Procedure: MR lumbar spine wo con MRI lumbar spine performed without contrast INDICATION: Lumbar radiculopathy. FINDINGS: Lumbar vertebral heights, alignment and bone marrow signal is unremarkable. Anterolisthesis L4-L5 identified measuring 4 mm. Likely caused by facet arthropathy. Minimal intervertebral space narrowing L4-S1. Conus medullaris terminates normally mid L1. T12-L1: Unremarkable. L1-2: Minor broad-based disc bulge and facet arthropathy. Canal and foramina are patent. L2-3: Facet arthropathy. Disc desiccation . No significant canal or foraminal narrowing. L3-4: Broad-based disc bulge with sbgk-tb-zvqzxtdt facet arthropathy. Mild neural foraminal narrowing. Canal is patent. L4-5: Anterolisthesis with uncovering of the posterior disc due to facet arthropathy. Mild broad base disc bulge. Moderate to severe facet arthropathy. Muxf-mr-qmvqucee foraminal narrowing. Canal is patent. L5-S1: Circumferential disc bulge with jcvu-br-adxmegxk facet arthropathy. Mild to moderate right and minimal left neural foramina narrowing. Canal is patent. MR/MR lumbar spine wo con Impression: Overall mild multilevel degenerative change without high-grade canal or neural foraminal narrowing. Impression dictated by: Allan Nance M.D. 04/20/2025 10:57 PM Dictation Location: [place] [address] Electronically authenticated by: [id number] Y Date: 04/20/2025 22:57 Dictated By: Allan Nance M.D. Signed By: 04/20/252299 DD/ 56 TD/TT: Distributor Of Directories: Reason For Referral No Information Medications Medication SIG (Take, Route, Frequency, Duration) Notes Start Date End Date Status Melatonin PRNActivePepcid 40 MG1 tablet Orally bid; Duration: 30 4Active Sucralfate 1 GM1 tablet on an empty stomach Orally qid; Duration: 10 4ActiveVentolin HFA 108 (90 Base) MCG/ACT2 puff as needed Inhalation every 4 hrsPRNActiveAlbuterol Sulfate (2.5 MG/3ML) 0.083%3 mL as needed Inhalation every 6 hrsPRNActiveAspirin 81 81 MG1 tablet Orally Once a dayPRN ActiveAmoxicillin-Pot Clavulanate 875-125 MG1 tablet Orally every 12 hrs; Duration: 5ActiveEzetimibe 10 MG1 tablet Orally Once a dayActive Pravastatin Sodium 10 MG2 tablets Orally Once a day; Duration: 30 04/20/2025 ActiveCholecalciferol 50 MCG (2000 UT)1 capsule Orally Once a day; Duration: 30 5ActiveTriamcinolone Acetonide 0.1 %1 application do not rinse afterwards and avoid eating or drinking for 30 minutes Mouth/Throat Twice a day; Duration: 30 5ActiveMeloxicam 15 MG1 tablet Orally Once a day; Duration: 5ActiveCalcium 600 MG1 tablet with meals Orally Twice a day; Duration: 5ActiveCarvedilol 3.125 MGTAKE 1 TABLET BY MOUTH TWICE A DAY WITH FOOD FOR 30 DAYS; Duration: 90Active Social History Tobacco Use: Social History Observation Description Date Details (start date - stop date) Former Smoker 09/16/1972 - 09/16/2017 Tobacco Use/Smoking Question Answer Notes Patient is a former smoker When did you start smoking?09/16/1972When did you stop smoking?09/16/2017How long has it been since you last smoked?5-10 yearsAlcohol Screen (Audit-C) Question Answer Notes Did you have a drink containing alcohol in the p ast year? No Hmmrwb4RkxuyroenynfvdEurivewpUNFXA-M (Standard) Question Answer Notes Did you have a drink containing alcohol in the p ast year? No Oodvby5GieyfphixgxlslCeistfzf Problems Problem Type SNOMED Code ICD Code Onset Dates Problem Status W/U Status Risk Notes Problem Essential hypertension (43861959 ) Essential (primary) hypertension (I10) ActiveconfirmedProblemDisorder of pituitary gland (597083747)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)ActiveconfirmedProblemAngina pectoris with documented spasm (81101035)Angina pectoris with documented spasm (I20.1)Activeconfirmed ProblemFibromyalgia (628383787)Fibromyalgia (M79.7)ActiveconfirmedProblemCOPD - Chronic obstructive pulmonary disease (86845330)COPD (chronic obstructive pulmonary disease) (J44.9)ActiveconfirmedProblemGastroesophageal reflux disease (300809960)GERD (gastroesophageal reflux disease) (K21.9)ActiveconfirmedProblem Dyslipidemia (557133510)Dyslipidemia (E78.5)ActiveconfirmedProblemAnxiety (80858682)Anxiety (F41.9)ActiveconfirmedProblemEssential hypertension (70828269) Benign essential HTN (I10)ActiveconfirmedProblemGastroesophageal reflux disease (032855183)GERD without esophagitis (K21.9)ActiveconfirmedProblemLumbar radiculopathy (387326537)Lumbar radiculopathy (M54.16)ActiveconfirmedProblem Gastritis (3429430)Gastritis (K29.70)ActiveconfirmedProblemNarcolepsy (44448345) Narcolepsy (G47.419)ActiveconfirmedProblemBenign neoplasm of cerebral meninges (47232257)Meningioma (D32.9)ActiveconfirmedProblemFibromyalgia (017535032) Fibromyalgia (M79.7)ActiveconfirmedProblemStreptococcal sore throat (disorder) (82184183)Strep pharyngitis (J02.0)ActiveconfirmedProblemRight upper quadrant pain (406773937)Right upper quadrant abdominal pain (R10.11)Activeconfirmed ProblemNon-infective enteritis and colitis (359019593)Acute colitis (K52.9) ActiveconfirmedProblemIrritable bowel (26576468)Irritable bowel (K58.9)Active confirmedProblemChronic obstructive pulmonary disease (45210995)Acute chronic obstructive pulmonary disease with respiratory distress (J44.9)Activeconfirmed ProblemPrinzmetal angina (46525360)Angina pectoris, variant (I20.1)Active confirmedProblemLeft lower quadrant pain (964565150)Left lower quadrant abdominal pain (R10.32)ActiveconfirmedProblemGastroesophageal reflux disease with esophagitis (disorder) (399152886)Gastro-esophageal reflux disease with esophagitis, without bleeding (K21.00)Activeconfirmed Vital Signs Temperature 98.9 degrees Fahrenheit 08/07/2024 Blood pressure tghrgkdha41 mm Hg04/01/20258063Bzaowy57 in04/01/2025lood pressure gysmidzh510 mm Hg04/01/20255023Osrovy541.2 lbs03/22/2025BMI27.14 kg/m203/22/2025 Encounters Encounter Location Date Provider Diagnosis [facility] [address] [place] [address] 08/07/2024 Lennox Hoy Acute bronchitis, unspecified organism J20.9 and COPD (chronic obstructive pulmonary disease) J44.9 [facility] [address] [place] [address] 04/01/2025 Lennox Peterson Frequency of urinati on R35.0 [place] [address] [place] [address] 02/05/2025 Lennox Hoy COPD (chronic obstructive pulmonary disease) J44.9 ; Fibromyalgia M79.7 ; Benign essential HTN I10 and Meningioma D32.9 [facility] [address] [facility] [place] [address] 03/22/2025 Lennox Peterson Angina pectoris, celeste iant I20.1 and Lumbar radiculopathy M54.16 [facility] [address] [facility] [place] [address] 02/05/2025 Lennox Solanoy [facility] [facility] [place] [address] 02/28/2025[facility] [facility] [place] [place] [address]/26/2025Doug HoyCOPD (chronic obstructive pulmonary disease) [facility]44.9[facility] [facility] [place] [address] 03/11/2025[facility] [facility] [place] [address]Doug [facility] [facility] [place] [address]/Doug HoyFrequency R35.0[facility] [facility] [place] [address]/Doug [facility] [facility] [place] [address]/21/2025 Lennox HoyLumbar radiculopathy M54.16[facility] [facility] [place] [place] [address]Doug [facility] [address] [facility] [place] [address]Doug HoyGastritis K29.70 [facility] [facility] [place] [address] 04/20/2025[facility] [facility] [place] [place] [address]/02/2025[facility] [facility] [place] [address]/08/2025[facility] [place] [address]/[facility] [facility] [place] [address]/07/2025DoGarden City Hospitaleni essential HTN I10 Assessments Encounter Date Diagnosis (ICD Code) Assessment Notes Treatment Notes Treatment Clinical Notes Section Notes 08/07/2024 Acute bronchitis, unspecified or ganism (ICD-10 - J20.9) Rest and drink more liquids, especially water. You may use a humidifier or vaporizer to help keep the drainage moist. Gkhu-hre-ivqzjyd Nasal Saline may help the stuffy and runny nose. Use Ibuprofen and or Tylenol as needed for fever, chills, body aches or pain. Children 5 years old should not be given bqfl-htq-xlicrma cough and cold medications such as guaifenesin and dextromethorphan. If you're over age 5, you may try lpux-vgm-ydgclgr cold medications such as guaifenesin and dextromethorphan, or multi-symptom cold reliever such as Dayquil to help reduce the symptoms. Antibiotics have been pre scribed. You should take these until completed and follow the directions. Antibiotics can sometimescause upset stomach, and in rare cases, serious allergic reactions or serious gastrointestinal problems. If you start having severe abdominal pain, severe vomiting, or bloody diarrhea, you should be r eevaluated by your physician or urgent care immediately. Follow up with your Primary Care Provider or return to clinic if symptoms do not improve within 3-5 days. If you develop severe symptoms such as shortness of breath, repeated vomiting, coughing up blood, or chest pain you should go to the emergency room or call [phone] (chronic obstructive pulmonary disease) (ICD-10 - J44.9)5COPD (chronic obstructive pulmonary disease) (ICD-10 - J44.9) 02/05/2025Fibromyalgia (ICD-10 - M79.7)03/22/2025ngina pectoris, variant (ICD- 10 - I20.1)03/22/2025Lumbar radiculopathy (ICD-10 - M54.16)jnznvzkukk77/11/2025 Benign essential HTN (ICD-10 - I10)04/01/2025Frequency of urination (ICD-10 - R35.0)03/11/2025OPD (chronic obstructive pulmonary disease) (ICD-10 - J44.9) 04/01/2025Frequency (ICD-10 - R35.0)04/05/2025Lumbar radiculopathy (ICD-10 - M54.16)04/07/2025Gastritis (ICD-10 - K29.70)02/05/2025enign essential HTN (ICD- 10 - I10)02/05/2025Meningioma (ICD-10 - D32.9)03/22/2025OtherRecommended to rest and use a heating pad on the area. Take NSAIDs for pain as needed Plan Of Treatment Pending Test Test Name Order Date CMP (COMPLETE METABOLIC PANEL) UA (URINALYSIS, COMPLETE) 04/01/2025 CULTURE, URINE w [...] 2_3 VIEWS 04/05/2025 THYROID PANEL (T4/TSH/FREE T3) 5 THYROID PANEL (T4/TSH/FREE T3) 4 MM screening mammo BI 02/05/2025 URINALYSIS MICROSCOPIC 04/01/2025 CMP (COMP MET HINES) w/eGFR CKD-EPI 2024 CBC WITH DIFF 02/05/2025 Insurance Providers Payer Name Payer Address Payer Phone Subscriber Number Group Number Insured Name Patient Relationship to Insured Coverage Start Date Coverage End Date [place] [address] [place] [address] [id number] Diego Cunninghamelf - patient is the [id number] [address]22[address] [address] OFFICE OF [place], [place] [id number] Diego Cunninghamelf - patient is the [id number] 2022 Medications Administered Medication Instructions Date of Administration Dosage Notes Ketorolac Tromethamine mgOrphenadrine Fitotqi21 mgTriamcinolone 40 mg/ml 20 mg Medical (General) History Medical History History [...] Tumor taken off Thyroid 1980s Partial Hysterctomy 1989 Removal of Both ovaries and cyst 2018 EGD & colonoscopy 04-22-2024 EGD/Colonoscopy 06/09/2025 Hospitalization History Reason Date(Month/Year) Chest Pains 2020
--- OUTSIDE RECORDS SUMMARY | 2025-07-23 12:28 | XMS_ITS | CCD ---
Author Organization [facility] Care Team Providers Care Ice Resurfacing Machine Operators Name Role Phone Nichelle Bailey II Unavailable RON CURTIS Attending Unavailable NICHOLAS, DR GARZA Primary Care Unavailable RON CURTIS Admitting Unavailable BARRERA, DR YENI Sunshine Consulting Unavailable GEORGIA, DR SOHAM Shepherd Consulting Unavailable RON CURTIS Consulting Unavailable [...] Attending Unavailable NICHOLAS, DR GARZA Admitting Unavailable UTELAYLA Attending Unavailable VIKI BALL Consulting Unavailable UTELAYLA Admitting Unavailable NICHOLAS, DR GARZA Primary Care Unavailable UTELAYLA SKAGGS Consulting Unavailable NICHOLAS, DR GARZA Admitting Unavailable NICHOLAS, DR GARZA Attending Unavailable NICHOLAS, DR GARZA Primary Care Unavailable NICHOLAS, DR GARZA Consulting Unavailable ZIEBER, DR SOHAM Shepherd Consulting Unavailable NICHOLAS, DR GARZA Primary Care Unavailable NICHOLAS, DR GARZA Attending Unavailable NICHOLAS, DR GARZA Consulting Unavailable NICHOLAS, DR GARZA Admitting Unavailable BARRERA, DR YENI Sunshine Consulting Unavailable KAMERON CIFUENTES Attending Unavailable NICHOLAS, DR GARZA Primary Care Unavailable ESAU, AHMAD Admitting Unavailable ESAU, AHMAD Consulting Unavailable INCHELLE BAILEY Admitting Unavailable NICHELLE BAILEY Attending Unavailable DR JOAQUIN ALEMAN Primary Care Unavailable Joaquin Aleman Primary Care Physician Joaquin Aleman Referring Unavailable Pablo VALENCIA Attending Unavailable Pablo VALENCIA Attending Unavailable Unavailable Primary Care Provider Unavailabl e Joaquin Aleman MD Primary Care Provider Odalys SMALLWOOD, Haley Attending Provider [phone] Joaquin Aleman MD Attending Provider DANIEL RIBEIRO Attending Unavailable DANIEL RIBEIRO Attending Unavailable Haley Morrow MD Attending Provider Joaquin Aleman MD Primary Care Provider [phone] Joaquin Aleman MD Primary Care Provider [phone] Odalys SMALLWOOD, Immoose Unavailable Odalys SMALLWOOD, Immoose Other Provider Asaad, Imad Admitting Unavailable Asaad, Imad Attending Unavailable Joaquin Aleman Primary Care Unavailable Joaquin Aleman Admitting Unavailable Joaquin Aleman Attending Unavailable Asaad, Imad Admitting Unavailable Asaad, Imad Attending Unavailable Joaquin Aleman Primary Care Unavailable Joaquin Aleman MD Primary Care Provider ESAU, LUCYMAD F Attending Unavailable Allergies Allergy ClassificationReported Allergen(s)Allergy TypeDate of OnsetReaction(s) Facility (2 sources)Coconut extract; Translations: [COCONUT]Drug [facility]bwninz77-18[facility] source)Misc-Food; Translations: [Misc-Food]Food allergy (disorder)09-11-2014 [facility] (1 source)No Known Medication Allergies; Translations: [No Known Medication Allergies]Propensity to adverse reactions (disorder)[facility] Repository (6 sources)Coconut extractDrug Xlbtqju23-91-5614W[facility] (7 sources)Onion extract; Translations: [ONION]Drug Fceqfsn90-60-3082JZHF [facility] (1 source)amLODIPine; Translations: [AMLODIPINE]Drug Sxiweax26-50-8521[facility]ulfL[facility] Medications Current Medications MedicationDrug Class(es)DatesSig (Normalized)Sig (Original)[id number] 200 actuat albuterol 0.09 mg/actuat metered dose inhaler (6 sources)beta2-Adrenergic Agonisttake 1 puff(s) by inhalation every eight hoursalbuterol HFA 90 mcg/act inhaler Inhale 1 puff every 8 (eight) hours Active calcium carbonate 1500 mg oral tablet (5 sources)Start: 49-25-7893skux 1 tablet by mouth twice dailyCalcium Carbonate 600 mg calcium (1,500 mg) tablet Active 600 MG PO Twice daily May 05, 2025 12:00am Complies with drug therapyCalcium Carbonate (CALCIUM-CARB 600 PO) Take by mouth Activecarvedilol 3.125 mg oral tablet (5 sources)alpha-Adrenergic Kenia, beta-Adrenergic BlockerStart: 05-05-2025 take 1 tablet by mouth twice dailyCarvedilol 3.125 mg tablet Active 3.125 MG PO Twice daily May 05, 2025 12:00am Complies with drug therapycholecalciferol 0.05 mg oral capsule (8 sources)Vitamin DStart: 54-55-0308lwtt 1 capsule by mouth once daily Cholecalciferol (Vitamin D3) 50 mcg (2,000 unit) capsule Active 2000 UNIT PO Daily May 05, 2025 12:00am Complies with drug therapyCyclosporine (2 sources)Calcineurin Inhibitor ImmunosuppressantStart: 20-34-1699Pjcqyxoktvtr 0.05 % dropperette Active 1 DROPS OPHTHALMIC As Directed May 05, 2025 12:00am Complies with drug therapyStart: 39-10-5508zczfgKKGSDYZ (Restasis) 0.05 % ophthalmic emulsion (3 sources)take 1 drop(s) into the eye(s) in the morningcycloSPORINE (Restasis) 0.05 % ophthalmic emulsion 1 drop in the morning and 1 drop before bedtime. Activediclofenac sodium 0.01 mg/mg topical gel (3 sources)Nonsteroidal Anti-inflammatory DrugStart: 35-50-1797Wywoemwv 1 % as directed Externally every 4 hours for 30 days Dec, Active1 ml erenumab- aooe 70 mg/ml auto-injector (9 sources)Start: 61-18-1909qenxzb 1 mL by subcutaneous injection onceerenumab (Aimovig) 70 MG/ML injection Indications: Migraine without aura and without status migrainosus, not intractable Inject 1 mL (70 mg) under the skin every 28 (twenty-eight) days 1 mL 2 05/21/2024 ActiveAimovig 70 MG/ML as directed Subcutaneous Activeezetimibe 10 mg oral tablet (7 sources)Dietary Cholesterol Absorption InhibitorStart: 04-04-6556dfws 1 tablet by mouth once dailyEzetimibe 10 mg tablet Active 10 MG PO Daily November 19, 2024 1:00am Complies with drug therapyfamotidine 40 mg oral tablet (4 sources)Histamine-2 Receptor AntagonistStart: 58-20-6597qtmw 1 tablet by mouth twice dailyfamotidine 40 mg Tab 40 mg = 1 tab(s), Oral, BID, Refills(s) 0 Start Date: 02/12/24 Status: Orderedtake 1 tablet by mouth once dailyfamotidine (Pepcid) 40 MG tablet Take 40 mg by mouth Daily Activehyoscyamine sulfate 0.125 mg sublingual tablet (6 sources)take 1 tablet by mouth every four hours as neededhyoscyamine (Levsin) 0.125 MG SL tablet Take 0.125 mg by mouth every 4 (four) hours if needed Active lisinopril 5 mg oral tablet (14 sources)Angiotensin Converting Enzyme InhibitorStart: 04-01-2024 End: 37-53-2626nzvk 1 tablet by mouth once dailylisinopril 5 MG tablet Take 1 tablet by mouth Daily 04/01/2024 ActiveStart: 98-35-0226daok 1 tablet by mouth once dailylisinopril 5 mg Tab 5 mg = 1 tab(s), Oral, Daily, Refills(s) 0 Start Date: 03/10/24 Status: Orderedtake 1 tablet by mouth every twenty-four hours Lisinopril 5 MG 1 tablet Orally Once a day Activemeclizine hydrochloride 25 mg oral tablet (10 sources)Antiemetictake 1 tablet by mouth three times daily as needed for dizzinessmeclizine (Antivert) 25 MG tablet Take 25 mg by mouth 3 (three) times a day as needed for dizzinessActivetake 1 tablet by mouth every twenty-four hours Meclizine HCl 25 MG 1 tablet as needed Orally Once a day Activemelatonin 5 mg oral tablet (1 source)Start: 62-70-9533rnlf 1 tablet by mouth once daily at bedtime as neededmelatonin 5 mg oral tablet 5 mg = 1 tab(s), Oral, Once a day (at bedtime), PRN for insomnia, Refills(s) 0 Start Date: 03/10/24 Status: Orderedmeloxicam 7.5 mg oral tablet (1 source)Nonsteroidal Anti-inflammatory DrugStart: 29-86-5863mcaz 1 tablet by mouth every twenty-four hoursMeloxicam 7.5 MG 1 tablet Orally Once a day for 30 day(s) Aug, Activemetoprolol tartrate 25 mg oral tablet (1 source)beta-Adrenergic BlockerMetoprolol Tartrate 25 MG as directed Orally Activeomeprazole 40 mg delayed release oral capsule (1 source)Proton Pump InhibitorStart: 27-28-9821lotc 1 capsule by mouth once dailypantoprazole 40 mg delayed release oral tablet (6 sources)Proton Pump Inhibitortake 1 tablet by mouth before mealtime pantoprazole (ProtoNix) 40 MG EC tablet Take 40 mg by mouth in the morning. Take before meals. Activerimegepant 75 mg disintegrating oral tablet (1 source)Nurtec 75 MG 1 tablet on the tongue and allow to dissolve Orally ActiveVentolin HFA 90 mcg/inh Aerosol (1 source)Start: 02-06-3781vqey 2 puff(s) by inhalation four times dailyVentolin HFA 90 mcg/inh Aerosol 2 puff(s), Inhalation, QID Start Date: 05/28/19 Status: Ordered Completed/Discontinued Medications MedicationDrug Class(es)DatesSig (Normalized)Sig (Original)[id number] Yrp-Pcnl-Shi-Asb-C (4 sources)Osmotic Laxative, Vitamin CStart: 11-19-2024 End: 39-22-1697rfkw 1 dose by mouth once in the ctlxxwsRqy2100-Okg Uak-Zczx-Llv-Asb-C (Plenvu) 140-9-5.2 gram powder in packet, sequential Discontinued 140 ML PO Once 1 November 19, 2024 1:00am May 05, 2025 1:08pm at 4:00 pm take first dose followedby 16 oz glass of liquid take second dose at 11:00 pm followed by a 16 oz glass of liquidStart: 70-16-3922tsnv 1 dose by mouth once in the eveningStart: 59-74-2376fkia 1 dose by mouth once in the bdwiaxbGir0754-Icw Nst-Zqqm-Yig-Asb-C (Plenvu) 140-9-5.2 gram powder in packet, sequential Active 140 ML PO Once 1 November 19, 2024 1:00am at 4:00 pm take first dose followed by 16 oz glass of liquid take second dose at 11:00 pm followed by a 16 oz glass of liquidaspirin 81 mg chewable tablet (8 sources)Platelet Aggregation Inhibitor, Nonsteroidal Anti-inflammatory Drug Start: 11-19-2024 End: 45-63-5584syjt 2 tablets by mouth once dailyAspirin 81 mg tablet,chewable Discontinued 2 TAB PO Daily November 19, 2024 1:00am May 05, 2025 1:08pm FreeTextSi tablets Orally Once a day; Note: Source Status: Taking; Provider: Sorin Morales II ( )Start: 13-33-5042uzcl 1 tablet by mouth once dailyaspirin 81 mg oral tablet 81 mg = 1 tab(s), Oral, Daily Start Date: 05/28/19 Status: Orderedcelecoxib 100 mg oral capsule (2 sources)Nonsteroidal Anti-inflammatory DrugStart: 75-19-4326jisu 1 capsule by mouth twice daily for arthritisCelecoxib 100 MG 1 capsule for arthritis Orally BID for 30 day(s) January, Not-Qcizyq75 hr isosorbide mononitrate 30 mg extended release oral tablet (8 sources)Nitrate VasodilatorStart: 11-19-2024 End: 96-63-8660zyui 1 tablet by mouth every twenty-four hoursIsosorbide Mononitrate 30 mg tablet extended release 24 hr Discontinued MG PO November 19, 2024 1:00am May 05, 2025 1:08pmtake 1 tablet by mouth every twenty-four hoursIsosorbide Mononitrate ER 30 MG 1 tablet in the morning Orally Once a day Activetake 1 tablet by mouth every twenty-four hoursIsosorbide Mononitrate ER 120 MG 1 tablet in the morning Orally Once a day Activetriamcinolone acetonide 40 mg/ml injectable suspension (4 sources)CorticosteroidStart: 04-27-2940Cswfzhs-40 Apr, 120 mgStart: 70-95-0281Xnjxtvq -40 mg Aug, 120 mg Problems Active Problems Problem ClassificationProblemDateDocumented DateEpisodic/ChronicAnxiety disorders (3 sources)Anxiety; Translations: [Panic attack]32-76-1395HbkxznaGkykqym obstructive pulmonary disease and bronchiectasis (5 sources)Chronic obstructive lung disease; Translations: [Pulmonary emphysema] 24-53-1419DxbyhlvUvdlurkl atherosclerosis and other heart disease (2 sources)Angina pectoris with documented spasm; Translations: [Angina pectoris with documented spasm]Onset: 92-13-1706LchjmfuZrrgwqujp of lipid metabolism (3 sources)Dyslipidemia; Translations: [Mixed hyperlipidemia]Onset: 08-27-2022 25-85-3387RlqlqinNqohdzykuj disorders (2 sources)Gastroesophageal reflux rxfighb10-95-2510XalgnlwAxrryarms hypertension (3 sources)Hypertensive disorder; Translations: [Essential (primary) hypertension]Onset: 368946-10-7865PitehyhWgoisetih and duodenitis (1 source)Enkfltctk54-93-6874PdqibujeHxxckfyb; including migraine (10 sources)Migraine; Translations: [Migraine, unspecified, not intractable, without status migrainosus]Onset: 038810-12-1095YkdpomtQuhhfb and vomiting (9 sources)Nausea; Translations: [Nausea]Onset: 772093-55-6340Ctggdxjl Noninfectious gastroenteritis (1 source)Bhoflyn59-51-6627LeytcuzxWavqlrqfxjvkvs (20 sources)Osteoarthritis of right hip joint; Translations: [Unilateral primary osteoarthritis, right hip]Onset: 09-14-2021 Resolved: 89-27-3838YiybrjcEabdf and unspecified benign neoplasm (4 sources)Benign neoplasm of cerebral meninges; Translations: [BENIGN NEOPLASM CEREBRAL MENINGES]Onset: 18-95-7882PlphchkOpiob circulatory disease (1 source)History of transient ischemic rpfewu06-50-2816GqvvafigKpgoe connective tissue disease (1 source)Udntsucbjlgt03-11-1372UyehuyrnUesjp connective tissue disease (1 source)Primary fibromyalgia anunvxfi59-49-6102JjgwtkwgJghdo endocrine disorders (6 sources)Pituitary mass; 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] Onset: 786771-21-2642GrivlhxHksef endocrine disorders (2 sources)Rathke's pouch cyst; 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]83-73-9925IpqdjnjUzrcv gastrointestinal disorders (6 sources)Finding of sensation of abdomen; Translations: [Other specified symptoms and signs involving the digestive system and abdomen]28-54-4466Hhrbnmbx Other gastrointestinal disorders (6 sources)Constipation alternates with diarrhea; Translations: [Other specified symptoms and signs involving the digestive system and abdomen]11-19-2024 EpisodicOther gastrointestinal disorders (6 sources)Abdominal bloating; Translations: [Abdominal distension (gaseous)] 36-51-4167GyzlhumhPpfpm gastrointestinal disorders (1 source)Diarrhea, unspecified; Translations: [Diarrhea, unspecified]Onset: 31-85-0712XohylpzgAropb nervous system disorders (1 source)Nlbkgolvmj46-97-2533WhkxqqjCpgok nutritional; endocrine; and metabolic disorders (1 source)Vsnhagjxxt83-86-3804LkuetuvxNnziv nutritional; endocrine; and metabolic disorders (1 source)Overweight in adulthood with body mass index of 25 or more but less than 0089-65-1360KhucehjkUssii screening for suspected conditions (not mental disorders or infectious disease) (8 sources)Decreased thyroid stimulating hormone level; Translations: [Other specified abnormal findings of blood chemistry]EpisodicOther skin disorders (1 source)Mass of posterior lobe of dnnjepzmq33-36-8100ZppaygzbNccgkwmg enteritis and ulcerative colitis (1 source)Ulcerative veonvdx36-11-8338IysfoglHlrjcmbkofp; intervertebral disc disorders; other back problems (6 sources)Radiculopathy, lumbar region; Translations: [Lumbar radiculopathy] Onset: 04-19-2022 Resolved: 28-01-4244HzfgsqicTkpkarckutpw (3 sources)LOW BACK PAIN, UNSPECIFIED; Translations: [LOW BACK PAIN, UNSPECIFIED]Onset: 81-09-2738Iichzhgfyhzn (2 sources)CONTACT W/AND (SUSP) EXPOS COVID-19; Translations: [CONTACT W/AND (SUSP) EXPOS COVID-19]Onset: 90-88-4905Goqaqcokzxpi (1 source)COUGH, UNSPECIFIED; Translations: [COUGH, UNSPECIFIED]Onset: 90-82-1590Ontczsaxyqvg (2 sources)R79.89 - Other specified abnormal findings of blood chemistryViral infection (1 source)COVID-19; Translations: [COVID-19]Onset: 04-04-2022 Past or Other Problems Problem ClassificationProblemDateDocumented DateEpisodic/ChronicAbdominal pain (16 sources)Indigestion; Translations: [Epigastric pain]Onset: 12-10-2024 99-07-7227MmebrvufJgakteekwx associated with dizziness or vertigo (8 sources)Dizziness; Translations: [Dizziness and giddiness]Onset: 04-15-2024 24-12-8749OhokmuvaZ Codes: Fall (1 source)Unspecified fall, initial encounter; Translations: [UNSPECIFIED FALL INITIAL ENCOUNTER]Onset: 30-61-6993IjgvnjqnEsxmgufijadms symptoms and ill- defined conditions (2 sources)Dysuria; Translations: [Frequency of micturition]Onset: 06-03-2022 EpisodicNeoplasms of unspecified nature or uncertain behavior (12 sources)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; Translations: [Neoplasm of uncertain behavior ofpituitary gland]Onset: 54-17-1037GgmgbdtxChrir aftercare (1 source)Other exterminator termite (current) drug therapy; Translations: [OTH PIT OPERATOR CURRENT DRUG THERAPY]Onset: 55-12-2788PaycjrkgLsnuq circulatory disease (1 source)Other specified symptoms and signs involving the circulatory and respiratory systems; Translations:[OTH SPEC SX SIGNS INVLV CIRC RS]Onset: 89-58-1491IyrcayuqPjaks gastrointestinal disorders (3 sources)Other specified symptoms and signs involving the digestive system and abdomen; Translations: [Abdominal pain, right upper quadrant]Onset: 12-10-2024 49-67-3937EwtfhhbkRfbgo gastrointestinal disorders (2 sources)Abdominal distension (gaseous); Translations: [Flatulence, eructation, and gas pain]Onset: 915644-06-0361RmnmrqxeOntoo injuries and conditions due to external causes (1 source)Other specified injuries of head, initial encounter; Translations: [OTH SPEC INJURIES HEAD INITIAL ENC]Onset: 65-57-6633XadzzkmuLuumt lower respiratory disease (4 sources)Other nonspecific abnormal finding of lung field; Translations: [OTH NONSPECIFIC ABN FIND LNG FIELD]Onset: 88-73-3893VkizhzyaRqclhhvs codes; unclassified (8 sources)Memory impairment; Translations: [Other amnesia]Onset: 04-15-2024 12-34-8751FoywfrnnRqltvhxqs and history of mental health and substance abuse codes (1 source)Personal history of nicotine dependence; Translations: [PERSONAL HISTORY OF NICOTINE DEPEND]Onset: 44-71-6319OetrqjfdLqmjxod and strains (1 source)Strain of muscle, fascia and tendon at neck level, initial encounter; Translations: [STRN MUSC FASCTENDON NECK LEVL INT]Onset: 95-08-6095Ujhycoxf Superficial injury; contusion (2 sources)Contusion of lower back and pelvis, initial encounter; Translations: [Contusion of left hand, initial encounter]Onset: 67-49-8888VygtagouWazhkzikyodh (1 source)LOW BACK PAIN, UNSPECIFIED; Translations: [LOW BACK PAIN, UNSPECIFIED] Onset: 49-39-9897Gudeklhtgbal (1 source)CONTACT W/AND (SUSP) EXPOS COVID-19; Translations: [CONTACT W/AND (SUSP) EXPOS COVID-19]Onset: 55-32-4848Rizeqra tract infections (4 sources)Urinary tract infection, site not specified; Translations: [UTI SITE NOT SPECIFIED]Onset: 68-57-8147Cfswjkod Results Test NameValueInterpretationReference RangeFacilityLon 06-09-2025L Specimen: [id number] Received: 06/09/25 Status: ISAIAS Navarrete Num: [id number] Spec Type: Surgical Subm Dr: Haley Morrow MD Tissues: A Small Intestine - Biopsy/Polyp (SMALL BOWEL BX) B Gastric Biopsy (GASTRIC BX) C Colon Biopsy (RANDOM COLON BX) Procedures: HE/6, Gross/Micro L4/3, H PYLORI, IHC First AB Age/ Patient Sex Location Account Attending Physician Oumar Cunningham 70/F [id number] Haley Morrow MD SPEC NUM: [id number] RECD: 06/09/25 STATUS: ISAIAS HASSANPriscilla NUM: [id number] ODILON: 06/09/25-849 [facility] DR: Halye Morrow MD ENTERED: 06/09/[address]: SPEC TYPE: Surgical DEPT: S ENTERED BY: [id number] RECV BY: [id number] ORDERED: HE/6, Gross/Micro L4/3, H PYLORI, IHC First AB ORDERED: HE/6, Gross/Micro L4/3, H PYLORI, IHC First AB Pathological Diagnosis A. Small bowel biopsy: - Small intestinal mucosa with no significant histopathologic findings; histologic features of celiac disease not identified. B. Gastric biopsy: - Gastric Mucosa with no significant histopathologic findings; negative for Helicobacter, metaplasia or dysplasia. C. Random colon biopsy: -Colonic type mucosa with no significant histopathologic findings; histologic features of microscopic colitis not identified. Clinical Information Bloating, nausea, constipation, diarrhea, Part A rule out celiac disease, Part B rule out H. pylori, Part C rule out microscopic colitis Gross Description Part A is received in formalin labeled with the patients date of , and Marisa, small bowel BX is a rich-buenrostro, focally erythematous, friable, 0.3 cm in greatest dimension tissue bit. The specimen is entirely submitted in a single cassette. (1, ns, [id number]) JASMIN Specimen: [id number] Received: 06/09/25 Status: ISAIAS Navarrete Num: [id number] Spec Type: Surgical Subm Dr: Haley Morrow MD Tissues: A Small Intestine - Biopsy/Polyp (SMALL BOWEL BX) B Gastric Biopsy (GASTRIC BX) C Colon Biopsy (RANDOM COLON BX) Procedures: HE/6, Gross/Micro L4/3, H PYLORI, IHC First AB Patient: Oumar Cunningham [id number] (Continued) Specimen: [id number] Received: 06/09/25 (Continued) Gross Description (Continued) Signed (signature on file) Nichelle Arreola JR, MD 06/11/25823 Specimen: [id number] Received: 06/09/25 Status: ISAIAS Navarrete Num: [id number] Spec Type: Surgical Subm Dr: Haley Morrow MD Tissues: A Small Intestine - Biopsy/Polyp (SMALL BOWEL BX) B Gastric Biopsy (GASTRIC BX) C Colon Biopsy (RANDOM COLON BX) Procedures: HE/6, Gross/Micro L4/3, H PYLORI, IHC First AB Patient: Oumar Cunningham [id number] (Continued) Specimen: [id number] Received: 06/09/25 (Continued) Gross Description (Continued) Part B is received in formalin labeled with the patients date of , and Marisa gastric BX is a rich-buenrostro, focally erythematous, friable, 0.5 cm in greatest dimension tissue bit. The specimen is entirely submitted in a single cassette. (1, ns, B) Part C is received in formalin labeled with the patients date of , and Marisa random colon BX are 2 rich-buenrostro, focally erythematous, friable, 0.5 and 0.7 cm in greatest dimension tissue strips. The specimen is entirely submitted in a single cassette. (1, ns, C) Microscopic Description A?C. Microscopic examination was completed. B.Immunohistochemical stain for Helicobacter pylori is interpreted as negative. CPT Codes 04867 x 3, 00803 Specimen: [id number] Received: 06/09/25 Status: ISAIAS Navarrete Num: [id number] Spec Type: Surgical Subm Dr: Haley Morrow MD Tissues: A Small Intestine - Biopsy/Polyp (SMALL BOWEL BX) B Gastric Biopsy (GASTRIC BX) C Colon Biopsy (RANDOM COLON BX) Procedures: HE/6, Gross/Micro L4/3, H PYLORI, IHC First AB ------- (more content not included)...[facility] Physician GroupOffice Visiton [id number]-up [id number] Oumar Cunningham 1955 F Date Provider Department Center 04/19/2025 DANIEL YUNG Al [facility] Family History Problem Relation Age of Onset Anemia Mother Breast cancer Mother Diabetes Mother Hypertension Mother Hyperlipidemia Mother Coronary artery disease Father Diabetes Father Hypertension Father Hyperlipidemia Father Stroke Paternal Grandmother Coronary artery disease Paternal Grandmother Family Status - Relation Status Age at Mother Father Paternal Grandmother Level of Service:99465 [place] OFFICE/OUTPATIENT ESTABLISHED MOD [facility]DM [facility] CenterUrine Cultureon 18-07-9261Pbykzuyn identified Cx Nom (U)No Growth 2 Days PERFORMED BY: [place] [address] PATHOLOGIST MANAGER RESPIRATORY AIMEE JUNIOR M.D.NormalAdventhealth Westchase Er Physician GroupComment on above: Performed By: #### CUU #### [place] [address] USAUrine cultureOrdered By: Joaquin Aleman on 73-45-2647Omblreae identified Cx Nom (U)No Growth 2 DaysElyria Memorial HospitalCT abdomen pelvis w conon 43-12-9185VU abdomen pelvis w [facility] [place] [address] [place] [address] CT Scan Report Signed Patient: Oumar Cunningham MR#: [id number] : 1955 Acct:[id number] Age/Sex: 69 / F ADM Date: 12/10/24 Loc: CT Room: Type: [facility] Attending Dr: Haley Morrow MD Copies to: [...] process. Impression dictated by: Kev Chavez Jr., DBobOBob12/10/2024 4:37 PM Dictation Location: RADIO-PC-18 Transcribed By: [facility] 12/10/24 1637 Dictated By: Kev Chavez Jr, DO 12/10/24 1634 Signed By: 12/10/24 [facility] Physician GroupOffice Visiton [id number]- up [id number] Oumar Cunningham 1955 F Date Provider Department Center 05/08/2024 Tracee-DANIEL RIBEIRO [facility] Family History Problem Relation Age of Onset Anemia Mother Breast cancer Mother Diabetes Mother Hypertension Mother Hyperlipidemia Mother Coronary artery disease Father Diabetes Father Hypertension Father Hyperlipidemia Father Stroke Paternal Grandmother Coronary artery disease Paternal Grandmother Family Status - Relation Status Age at Mother Father Paternal Grandmother Level of Service:75073 [place] OFFICE/OUTPATIENT ESTABLISHED MOD [facility] 76-15-6236VsutxfefgSmjvlodby From: So Finley LPN To: GSN - Clinical; Sent: 04/23/2024 14:41:29 EDT Show up: 03/22/2034 07:00:00 EDT Subject: colonoscopy recall Due Date/Time: 04/22/2034 07:00:00 EDT Reminder/Recall Patient due for screening colonoscopy 04/22/2034.[facility]onConsent for Procedure/Surgeryon 31-08-7307Xozmosi for Procedure/Surgery [id number]#1.00TIFZanesville City HospitalFacesheeton 78-83-5792Roatjmyds [id number] [facility] CenterAmbulatory Visit Summaryon 91-76-4281Hkjygyfgfj Visit Summary OUMAR CUNNINGHAM :1955 Visit Date:03/10/2024 Ambulatory Visit Instructions Your Care Team Attending Physician - ERIK SMALLWOOD, Pablo Shepherd Primary Care Physician - Nicholas SMALLWOOD, Joaquin Referring Physician - Joaquin Aleman MD This Is Your Medications List [...] you for choosing us for your care. [facility]RAD - Ultrasound Reporton 06-12-4164CMC - Ultrasound Report [id number]#1.00TIFZanesville City HospitalPhysician Referralon 07-64-4522Qlasnwoww Referral [id number]#1.00TIFZanesville City HospitalACTH, PLASMAon 13-14-1483RCRA, Wyuryi29.7 pg/mLNormal7.2-63.3The [facility] HospitalComment on above:Result Comment: ACTH reference interval for samples collected between 7 and 10 AM.Performed By: #### UAMIC #### [facility] [address] [address] [address] Annie RainCORTISOLoalexa 06-24-4031Pzjktvdm1.7 ug/dLNoNorwalk Memorial Hospital Comment on above:Result Comment: Cortisol AM 6.2 - 19.4 Cortisol PM 2.3 - 11.9Performed By: #### CORTISO #### [facility] [address] [place] [address] Dr. Annie RainFSHoalexa 02-24-6094KRC62.8 mIU/mLNormalAultman HospitalComment on above:Result Comment: Adult Female: Follicular phase 3.5 - 12.5 Ovulation phase 4.7 - 21.5 Luteal phase 1.7 - 7.7 Postmenopausal 25.8 - 134.8Performed By: #### LBCFSH #### [facility] [address] [place] [address] Dr. Annie RainGROWTH HORMONEon 69-78-8971Pgdfvg Hormone, Serum1.5 ng/mLNormal 0.0-10.0Aultman HospitalComment on above:Performed By: #### UAMIC #### [facility] [address] [place] [address] Dr. Annie RainQxxkhPLRYGSP-YTRZ-WUHRFT-FACTOR 1on 40-10-4013Glzmoco-Like Growth Factor I94 ng/bEPcvagm36-392Mic [facility] HospitalComment on above:Performed By: #### INSGF1 #### [place] [address] [address] Annie RainLUTEINIZING HORMONE (LH)on 28-84-5818FA67.1 mIU/mLNormalThe [facility] HospitalComment on above:Result Comment: Adult Female: Follicular phase 2.4 - 12.6 Ovulation phase 14.0 - 95.6 Luteal phase 1.0 - 11.4 Postmenopausal 7.7 - 58.5Performed By: #### LBCLH #### [facility] [address] [place] [address] Dr. Annie RainPROLACTINon 99-31-1041Hndyjrreb3.4 ng/mLNormal4.8-23.3The [facility] HospitalComment on above:Performed By: #### PROLAC #### [facility] [address] [place] [address] Dr. Annie RainFREE T4on 01-57-8887Zvnp T4 [Mass/Vol]1.01 ng/dLNormal0.76-1.46 The [facility] HospitalComment on above:Performed By: #### FT4 #### [facility] [address] [place] [address] Dr. Annie RainPROF CHEM 8 (BAS METB)on 08-55-8633Lgtbu gap [Moles/Vol]11.4 mmol/LNormalThe Al HospitalComment on above:Performed By: #### UAMIC #### [facility] [address] [address] [address] Annie RainCalcium [Mass/Vol]9.4 mg/dLNormal8.5-10.1[facility] Comment on above:Performed By: #### UAMIC #### [facility] [address] [address] [address] Annie RainChloride [Moles/Vol]105 mmol/IXtjahd28-897GgzAultman Hospital Comment on above:Performed By: #### UAMIC #### [facility] [address] [address] [address] Annie RainCO2 [Moles/Vol]29.6 mmol/EFdsapc31.0-32.0[facility] Comment on above:Performed By: #### UAMIC #### [facility] [address] [address] [address] Annie RainCreatinine [Mass/Vol]0.55 mg/dLNormal0.55-1.02The [facility] HospitalComment on above:Performed By: #### UAMIC #### [facility] [address] [address] [address] Annie ChaneyGFR-AF MEXICAN>60Normal>=60Aultman HospitalComment on above:Performed By: #### UAMIC #### [facility] [address] [address] [address] Annie ChaneyGFR-NON AF MEXICAN>60Normal>=60Aultman HospitalComment on above:Performed By: #### UAMIC #### [facility] [address] [address] [address] Annie RainGlucose [Mass/Vol]80 mg/pEVcoiaj85-792JiyAultman Hospital Comment on above:Performed By: #### UAMIC #### [facility] [address] [place] [address] Dr. Annie RainPotassium [Moles/Vol]4.0 mmol/LNormal3.5-5.1[facility] Comment on above:Performed By: #### UAMIC #### [facility] [address] [address] [address] Annie RainSodium [Moles/Vol]142 mmol/ELlrpts510-961Cgu [facility] Comment on above:Performed By: #### UAMIC #### [facility] [address] [place] [address] Dr. Annie RainUrea nitrogen [Mass/Vol]8.0 mg/dLNormal7.0-18.0The [facility] HospitalComment on above:Performed By: #### UAMIC #### [facility] [address] [address] [address] Annie RainUrea nitrogen/Creatinine [Mass ratio]14.5 mg/mgNoNorwalk Memorial HospitalComment on above:Performed By: #### UAMIC #### [facility] [address] [place] [address] Dr. Annie Mtz 96-86-6632PTA6.404 uIU/mLNormal0.358-3.740Aultman HospitalComment on above:Performed By: #### UAMIC #### [facility] [address] [place] [address] Dr. Annie RainXR LSPINE MIN 4 VIEWSon 68-41-0974CX LSPINE MIN 4 VIEWSEXAM: XR LSPINE MIN 4 VIEWS EXAMINATION: XR LSPINE MIN 4 VIEWS HISTORY: Lumbar radiculopathy COMPARISON: 02/03/2019 FINDINGS: BONES: 2 mm anterolisthesis of L4 in relation L5. Mild spondylosis. Moderate to severe facet osteoarthropathy DISC SPACES: Multilevel disc space narrowing PARASPINOUS: Negative. No paraspinous abnormality is seen. OTHER: Vascular calcifications IMPRESSION: Degenerative changes Electronically authenticated by: YENI RUST Date: 2022-08-27 07:31[facility] HospitalMRI BRAIN WO W CONon 34-82-8453VXQ BRAIN WO W CONEXAMINATION: MRI BRAIN WO W CON HISTORY: Meningioma [...] a Rathke's cleft cyst. Electronically authenticated by: SOHAM HO Date: 2022-08-15 22:51NormProMedica Bay Park HospitalCREATININEon 02-62-7080Ujtoqtvcyy [Mass/Vol]0.62 mg/dLNormal 0.55-1.02The Regional Medical Centerment on above:Performed By: #### CREA #### [facility] [address] [place] [address] Dr. Annie ChaneyGFR-AF MEXICAN>60Normal>=60The [facility] on above:Performed By: #### CREA #### [facility] [address] [place] [address] Dr. Annie ChaneyGFR-NON AF MEXICAN>60Normal>=60The [facility] on above:Performed By: #### CREA #### [facility] [address] [place] [address] Dr. Annie RainCT ABD/PELVIS WO CONon 42-44-3259KC ABD/PELVIS WO CONEXAMINATION: CT ABD/PELVIS WO CON, 06/25/2022 12:44 PM [...] Electronically authenticated by: YENI RUST Date: 2022-06-25 13:[address] [place] [address] HEAD WO CONon 84-42-7463VY HEAD WO CONEXAMINATION: CT HEAD WO CON HISTORY: HEADACHE COMPARISON: [...] Electronically authenticated by: PABLO MILLER Date: 2022-06-25 13:56NormProMedica Bay Park HospitalCULTURE URINEon 98-17-4343ASWMIND URINECulture Observations: LIGHT GROWTH OF MIXED GENITAL SILAS. NO POTENTIAL PATHOGENS SEEN.NormalThe [facility] HospitalComment on above:Performed By: #### INSGF1 #### [facility] [address] [place] [address] Dr. Annie Nuñez RANDOM W/MICROSCOPICon 52-63-5138GFMFUSDOPTAL SEENNormalNONE SEENAultman HospitalComment on above:Performed By: #### UAMIC #### [facility] [address] [place] [address] Dr. Annie Gar Ql (U)NegativeNormalNEGATIVEThe [facility] Comment on above:Performed By: #### UAMIC #### [facility] [address] [place] [address] Dr. Annie RainCASTSHERRILL SEENNormalNONE SEENAultman HospitalComment on above:Performed By: #### UAMIC #### [facility] [address] [place] [address] Dr. Annie Vincent (U)CLEARNormalCLEARAultman HospitalComment on above: Performed By: #### UAMIC #### [facility] [address] [place] [address] Dr. Annie Greco (U)YELLOWNormalYELLOWAultman HospitalComment on above: Performed By: #### UAMIC #### [facility] [address] [place] [address] Dr. Annie Pinedaystals LM Nom (Urine sed)NONE SEENNormalNONE SEENAultman HospitalComment on above:Performed By: #### UAMIC #### [facility] [address] [place] [address] Dr. Valencia ChangEpithelial cells LM Ql (Urine sed)RARENormalNONE SEEN /RAREThe [facility] HospitalComment on above:Performed By: #### UAMIC #### [facility] [address] [place] [address] Dr. Annie RainGlucose Ql (U)NegativeNormalNEGATIVEAultman HospitalComment on above:Performed By: #### UAMIC #### [facility] [address] [place] [address] Dr. Annie RainHemoglobin Ql (U)SMALLAbnormalNEGATIVEOhiohealth Riverside Methodist Hospital on above:Performed By: #### UAMIC #### [facility] [address] [place] [address] Dr. Annie RainKetones Ql (U)TRACEAbnormalNEGATIVEAultman HospitalComment on above:Performed By: #### UAMIC #### [facility] [address] [place] [address] Dr. Annie RainLEUKOCYTESNegativeNormalNEGATIVEAultman HospitalComment on above:Performed By: #### UAMIC #### [facility] [address] [place] [address] Dr. Annie RainMUCOUSNONE SEENNormalNONE SEENAultman HospitalComment on above:Performed By: #### UAMIC #### [facility] [address] [place] [address] Dr. Annie Clarktrite Ql (U)NegativeNormalNEGATIVEAultman HospitalComment on above:Performed By: #### UAMIC #### [facility] [address] [place] [address] Dr. Annie RainpH (U)6.5 [pH]Normal5-9The [facility] HospitalComment on above: Performed By: #### UAMIC #### [facility] [address] [place] [address] Dr. Annie RainFvzgaRWO3-4Iyokmoqx8-1Vjo [facility] HospitalComment on above:Performed By: #### UAMIC #### [facility] [address] [place] [address] Dr. Annie RainSPEC GRAVITY1.907Zmgjil1.005-<=1.025The [facility] HospitalComment on above:Performed By: #### UAMIC #### [facility] [address] [place] [address] Dr. Annie Nuñez PROTEINNegativeNormalNEGATIVE/ TRACEThe [facility] Comment on above:Performed By: #### UAMIC #### [facility] [address] [place] [address] Dr. Annie RainUrobilinogen Qn (U)1.0 {Willam'U}/dLNormal0.2 - 1.0The [facility] HospitalComment on above:Performed By: #### UAMIC #### [facility] [address] [place] [address] Dr. Annie RainWBC0-2AbnormalNONE SEENThe [facility] HospitalComment on above: Performed By: #### UAMIC #### [facility] [address] [place] [address] Dr. Annie RainCT CHEST WO CONon 50-70-9440QK CHEST WO CONEXAMINATION: CT CHEST WO CON HISTORY: Nodule of lung COMPARISON: [...] Electronically authenticated by: YENI RUST Date: 2022-06-08 13:10NormalThe [facility]ill HospitalCULTURE URINEon 92-76-3632IUVKSND URINECulture Observations: NO GROWTH.NormalAultman HospitalComment on above:Performed By: #### INSGF1 #### [facility] [address] [place] [address] Dr. Annie Nuñez RANDOM W/MICROSCOPICon 50-65-2952DTWWYJCTGVREPVxzhnbcmNDSJ SEENAultman HospitalComment on above:Performed By: #### UAMIC #### [facility] [address] [place] [address] Dr. Annie Gar Ql (U)NegativeNormalNEGATIVEAultman Hospital Comment on above:Performed By: #### UAMIC #### [facility] [address] [place] [address] Dr. Annie White SEENNormalNONE SEENAultman HospitalComment on above:Performed By: #### UAMIC #### [facility] [address] [place] [address] Dr. Annie Vincent (U)CLEARNormalCLEARAultman HospitalComment on above: Performed By: #### UAMIC #### [facility] [address] [place] [address] Dr. Annie Greco (U)LT. YELLOWNormalYELLOWAultman HospitalComment on above:Performed By: #### UAMIC #### [facility] [address] [place] [address] Dr. Annie Villatoro LM Nom (Urine sed)NONE SEENNormalNONE SEENAultman HospitalComment on above:Performed By: #### UAMIC #### [facility] [address] [address] [address] Valencia ChangEpithelial cells LM Ql (Urine sed)RARENormalNONE SEEN /RAREThe [facility] HospitalComment on above:Performed By: #### UAMIC #### [facility] [address] [place] [address] Dr. Annie RainGlucose Ql (U)NegativeNormalNEGATIVEAultman HospitalComment on above:Performed By: #### UAMIC #### [facility] [address] [place] [address] Dr. Annie RainHemoglobin Ql (U)NegativeNormalNEGATIVEOhiohealth Riverside Methodist Hospital on above:Performed By: #### UAMIC #### [facility] [address] [place] [address] Dr. Annie RainKetones Ql (U)NegativeNormalNEGATIVEAultman HospitalComment on above:Performed By: #### UAMIC #### [facility] [address] [place] [address] Dr. Annie RainLEUKOCYTESNegativeNormalNEGATIVEAultman HospitalComment on above:Performed By: #### UAMIC #### [facility] [address] [place] [address] Dr. Annie RainMUCOUSNONE SEENNormalNONE SEENAultman HospitalComment on above:Performed By: #### UAMIC #### [facility] [address] [place] [address] Dr. Annie RainNitrite Ql (U)NegativeNormalNEGATIVEAultman HospitalComment on above:Performed By: #### UAMIC #### [facility] [address] [place] [address] Dr. Annie RainpH (U)6.0 [pH]Normal5-9The [facility] HospitalComment on above: Performed By: #### UAMIC #### [facility] [address] [place] [address] Dr. Annie RainZfenrWQW6-3Kobzit9-5Tsg [facility] HospitalComment on above:Performed By: #### UAMIC #### [facility] [address] [place] [address] Dr. Annie RainSPEC GRAVITY<=1.946Xcrxaugx0.005-<=1.025The [facility] Comment on above:Performed By: #### UAMIC #### [facility] [address] [place] [address] Dr. Annie RainUA PROTEINNegativeNormalNEGATIVE/ TRACEThe [facility] Comment on above:Performed By: #### UAMIC #### [facility] [address] [place] [address] Dr. Annie RainUrobilinogen Qn (U)0.2 {Willam'U}/dLNormal0.2 - 1.0The [facility] HospitalComment on above:Performed By: #### UAMIC #### [facility] [address] [place] [address] Dr. Annie RainWBC0-2AbnormalNONE SEENThe [facility] HospitalComment on above: Performed By: #### UAMIC #### [facility] [address] [place] [address] Dr. Annie RainCovid-19 PCR (CVDTB)on 13-30-5614CWKU-CoV-2 (COVID-19) RNA GREGOR+probe Ql (Unsp spec)DetectedCritically abnormalNOT DETECTEDThe [facility] HospitalComment on above:Result Comment: This test is not yet approved or cleared by the [place] FDA. When there are no FDA-approved or cleared tests available, and other criteria are met, FDA can make tests available under an emergency access mechanism called an Emergency Use Authorization (EUA). The EUA for this test is supported by the Medical Office Professional Instructor of Health and Human Service's declaration that circumstances exist to justify the emergency use of in vitro diagnostics for the detection and/or diagnosis of the virusthat causes COVID-19. This EUA will remain in effect for the duration of the COVID-19 declaration ju stifying emergency of IVDs, unless it is terminated or revoked by the FDA (after which the test mayno longer be used).Performed By: #### INSGF1 #### [facility] [address] [address] [address] Annie RainMYMICHIGAN MED[facility]AW BRAIN WO W CONon 84-40-8036YKE BRAIN WO W CON Begin Addendum #1 [...] There are no prior studies available for comparison.Normal The [facility] HospitalBUNon 85-63-6218Qlle nitrogen [Mass/Vol]13.0 mg/dLNormal 7.0-18.0The [facility] HospitalComment on above:Performed By: #### CRETee BUN #### [facility] [address] [address] [address] Annie RainCREATININEon 70-99-9536Zoeosrkoty [Mass/Vol]0.70 mg/dLNormal 0.55-1.02The [facility] HospitalComment on above:Performed By: #### INSGF1 #### [facility] [address] [place] [address] Dr. Annie ChaneyGFR-AF MEXICAN>60Normal>=60The [facility] HospitalComment on above:Performed By: #### INSGF1 #### [facility] [address] [address] [address] Annie ChaneyGFR-NON AF MEXICAN>60Normal>=60The [facility] HospitalComment on above:Performed By: #### INSGF1 #### [facility] [address] [address] [address] Annie Rain head/brain wo/w conon 46-29-8329CG head/brain wo/w con [facility] [place] [address] MRI Report Signed Patient: Oumar Cunningham MR#: [id number] 53 : 1955 Acct:[id number] Age/Sex: 65 / F ADM Date: 11/07/20 Loc: MR Room: Type: [facility] Attending Dr: Soham Woodson MD Ordering Provider: Soham Woodson MD Date of Service: 11/07/20 MR/MR head/brain wo/w con: D44.3, G43.909, R42 Copies to: Soham Woodson MD MR head/brain wo/w con 11/07/2020 [...] Remberto Coulter M.D.11/08/2020 11:48 AM Dictation Location: [place] [address] Transcribed By: [facility] 11/08/20 1148 Dictated By: Remberto Coulter II, MD 11/08/20 1135 Signed By: 11/08/20 1148[facility] CenterISTAT XRay CREon 11-07-2020 Creatinine [Mass/Vol]0.6 mg/dLNormal0.6-1.3FGreene Memorial Hospital Comment on above:Result Comment: ER/ESD physician is notified/shown all ISTAT results. Critical values may be confirmed by laboratory testing if deemed necessary by ER attending doctor.Performed By: #### ISCRE #### [address] Point of Care testing ,ISTAT GFR (> 60NormUniversity Hospitals Beachwood Medical CenterComment on above:Result Comment: GFR estimated reference range: According to KDOQI guidelines, <60 ml/min/1.73m2 is sufficient to diagnose a patient with chronic kidney disease. PERFORMED BY: [place] [address] PATHOLOGIST MANAGER RESPIRATORY MARK SERRATO M.D.Performed By: #### ISCRE #### [facility] [address] [place] [address] Point of Care testing ,ISTAT GFR (Non- Am> 60NoAkron Children's HospitalComment on above:Performed By: #### ISCRE #### [address] Point of Care testing , Vital Signs Date TimeVital SignValuePerforming EvdnihosjKjjcrkwo44-04-3931 13:30-0500Body zccaox138.6 Sd Cifuentes MD Work Phone: [phone] [place] [address]-05-2025 13:30-0500Body mass index (BMI) [Ratio]26.09 kg/d8KqlqyKameron Cifuentes MD Work Phone: [phone] [address]-05-2025 13:30-0500Body kaabkd49.95 kgKameron Cifuentes MD Work Phone: [phone] [address]-05-2025 13:30-0500Diastolic blood oyhyshvr53 mm[Hg]Kameron Cifuentes MD Work Phone: [phone] [address]-05-2025 13:30-0500Heart rate68 /min Kameron Cifuentes MD Work Phone: [phone] [place] [address]-05-2025 13:30-0500Respiratory rate16 /minKameron Cifuentes MD Work Phone: [phone] [place] [address]-05-2025 13:30-9041NpM4% (BldA) [Mass fraction]98 %Kameron Cifuentes MD Work Phone: [phone] [place] [address]-05-2025 13:30-0500Systolic blood agpnxtjo790 mm[Hg]Kameron Cifuentes MD Work Phone: [facility] CenterMgryqfpbsk48-92-3841 09:40-0400Diastolic blood mkyaivtt99 mm[Hg]Joaquin Aleman MD Work Phone: [phone]09-24-2025 09:40-0400 Heart rate62 /Lindsay Aleman MD Work Phone: [phone] [place], [place] 0218909-24-2025 09:40-0400 Respiratory rate16 /Lindsay Aleman MD Work Phone: [phone] [place], [place] 0218909-24-2025 09:40-0400 SaO2% (BldA) [Mass fraction]99 %Joaquin Aleman MD Work Phone: [phone] [place], [place] [address]18909-24-2025 09:40-0400 Systolic blood vlauaiqc102 mm[Hg]Joaquin Aleman MD Work Phone: [phone] [place], [place] 0218909-24-2025 07:15-0400 Body rzyans922.56 cmJoaquin Aleman MD Work Phone: [phone] [place], [place] 0218909-24-2025 07:15-0400 Body .67 kgJoaquin Aleman MD Work Phone: [phone] [place], [place] 0218908-20-2025 13:04-0400 Body .56 cmJoaquin Aleman MD Work Phone: [phone] [place], [place] 0218908-20-2025 13:04-0400 Body mass index (BMI) [Ratio]26.4 kg/e6RgpdziuJoaquin Aleman MD Work Phone: [phone] [place], [place] 0218908-20-2025 13:04-0400 Body uimvem93.85 kgJoaquin Aleman MD Work Phone: [phone] [place], [place] 0218903-06-2025 11:14-0500 Body kdnbyn711.56 cmJoaquin Aleman MD Work Phone: [phone] [place], [place] 0218903-06-2025 11:14-0500 Body mass index (BMI) [Ratio]26.4 kg/k1KkseoigJoaquin Aleman MD Work Phone: [facility]03-06-2025 11:14-0500 Body yvfccd72.93 kgJoaquin Aleman MD Work Phone: [phone]09-05-2024 14:13-0400 Body jfdhuk635.6 cmAkevon Schmid PA Work Phone: [phone] CenterPwwwslzaei42-75-7979 14:13-0400Body mass index (BMI) [Ratio]26.26 kg/m2Layla JAIME Work Phone: [phone] CenterBwycaceowr54-92-4378 14:13-0400Body .4 kg Layla JAIME Work Phone: [phone] CenterXjzikvgqhn75-19-2933 14:13-0400Diastolic blood ohhtvlla41 mm[Hg]Layla JAIME Work Phone: [phone] CenterBqoojegjxg07-27-4973 14:13-0400Heart rate69 /min Layla JAIME Work Phone: [facility] CenterGwfsqqmjtb50-84-4706 14:13-0400Respiratory rate16 /minLayla Schmid PA Work Phone: [facility] CenterFivudpixyo20-81-6346 14:13-7617JsF6% (BldA) [Mass fraction]96 %Layla JAIME Work Phone: [facility] CenterIwxwahhcdu90-35-9061 14:13-0400Systolic blood xjilmqst129 mm[Hg]Layla JAIME Work Phone: [facility] CenterAmqtbdpujr43-68-5772 14:14-0400Blood Pressure LocationMichael NILL [phone]-CmpybPromedica Defiance [facility] Hospital06-25-2024 14:14-0400Diastolic blood daiynhuh14 mm[Hg]Pablo NILL [phone]-PbhzxPromedica Defiance Regional Hospital06-25-2024 14:14-0400Heart rate72 /minMichael NILL [phone]-NmyyrOhiohealth Doctors Hospitalue06-25-2024 14:14-0400Respiratory rate16 /minMichael NILL [phone]-DriibOhiohealth Doctors Hospitalue06-25-2024 14:14-0400Systolic blood nyrdhewo444 mm[Hg]Pablo NILL [phone]-CbgqhOhiohealth Doctors Hospitalue08-04-2022 12:15-0400Body xzyxyb928.56 cmRobert Sorin II Other [employer] Other 08-04-2022 12:15-0400Body mass index (BMI) [Ratio] 27.46 kg/t3Vyqret Starbuck II Other [employer] Other 08-04-2022 12:15-0400Body .58 kgRobert Starbuck II Other [employer] Other 05-05-2022 10:15-0400Body ithmfh641.56 cmRobert Starbuck II Other [employer] Other 05-05-2022 10:15-0400Body mass index (BMI) [Ratio] 27.98 kg/h6Fxpcko Starbuck II Other [employer] Other 05-05-2022 10:15-0400Body cnvfat72.94 kgRobert Starbuck II Other [employer] Other 04-20-2022 12:45-0400Body pdcdru977.56 cmRobert Starbuck II Other [employer] Other 04-20-2022 12:45-0400Body mass index (BMI) [Ratio] 27.98 kg/n9Ymzctq Starbuck II Other [employer] Other 04-20-2022 12:45-0400Body hedjmd14.94 kgRobert Starbuck II Other [employer] Other 12-30-2021 10:00-0500Body .56 cmRobert Sorin II Other [employer] Other 12-30-2021 10:00-0500Body mass index (BMI) [Ratio] 27.63 kg/t1Ygdrss Sorin II Other [employer] Other 12-30-2021 10:00-0500Body pzeujw42.03 kgRobert Starbuck II Other [employer] Other Encounters Encounter DateEncounter TypeCare ProviderFacilityStart: 07-21-2025 End: 93-26-9850Sjbfdqwilliam Cifuentes MD Work Phone: [facility] EndocrinologyStart: 07-21-2025 End: 95-68-3839Qmeagzstephen Cifuentes MD Work Phone: [facility] EndocrinologyStart: 07-21-2025 End: 18-65-1293Hmjwyw outpatient visit 25 minutesKameron Cifuentes MD Work Phone: noms Liz EndocrinologyComment on above:Low TSH level (Primary Dx); Rathke's cleft cyst (HCC)Start: 07-21-2025 End: 58-01-4239wqmbooosfdHKLJTJovita Zavala AvailableStart: 06-09-2025 End: 55-24-8223hfhxidsginLrew AsaadFacility:[facility] Start: 88-59-8914Xdq-patient / Non-visitHaley Morrow MD-[facility] Work Phone: Start: 05-11-2025 End: 71-44-0131Kkjgylfrvp OrdersHaley Morrow MD Work Phone: Referring PhysicianComment on above:Low TSH level (Primary Dx)Start: 05-05-2025 End: 24-23-5933aqjtpxtyknGqmfxhh M Hoy MD Work Phone: [facility] Work Phone: Start: 05-05-2025 End: 39-01-3482Hrvhktz encounter procedureHaley Morrow MD-[facility] Work Phone: Start: 04-19-2025 End: 92-93-8735ugwifmtzqoTVXRVV [facility] Start: 04-01-2025 End: 23-25-5542amyufruiouViocqly [facility] Work Phone: Start: 04-01-2025 End: 74-02-1391Gxxnylwj ReferredJoaquin Reyna MD-[facility] Start: 12-10-2024 End: 49-91-6391Qxadood encounter procedureJoaquin Aleman MD Work Phone: [facility]-CT Scan [facility] [place] Work Phone: Start: 12-10-2024 End: 76-03-4446brbazzjlrpClltisw M Hoy MD Work Phone: [facility] Work Phone: Start: 11-19-2024 End: 94-11-9976Zwywczw encounter Nehemiah Aleman MD Work Phone: [facility] Work Phone: Start: 05-21-2024 End: 99-53-1077Jkemuy [facility] Work Phone: [facility]TEStart: 05-21-2024 End: 16-23-9806Ziacgf flowsheetLayla Binu JAIME Work Phone: [facility] [place] STATE ROUTEStart: 05-21-2024 End: 55-19-7208Jumasx outpatient visit 25 Jayden Binu JAIME Work Phone: noms [place] STATE ROUTEComment on above: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); Dizziness; Migraine without aura and without status migrainosus, not intractable (CMS/HCC); Memory changeStart: 05-08-2024 End: 81-37-9108xoppsioridBEEQWX [facility] Start: 04-22-2024 End: 10-79-8738hfnsxqenbrBiqoxuj R NILLFacility:CD:[id number]: 03-10-2024 End: 63-97-5231lgurgkilkjZqxmgil HoyFacility: BellevueStart: 03-10-2024 End: 93-67-7073Evkkdoh encounter procedureMichael R NILL 149-1007Bcacnk-Vlecc [facility] Start: 10-29-2022 End: 16-26-5690cgituwmeulOEJST SABBAGHFacility:X7Glivy: 42-49-1277pxlcxfepsqCC JOAQUIN HOYFacility:W4Otrsf: 08-24-2022 End: 33-79-7619wksjjxkjpgDW JOAQUIN HOYFacility:R3Kxegy: 08-15-2022 End: 25-11-8238abbewomxkmRM JOAQUIN HOYFacility:X3Fdsxz: 06-25-2022 End: 07-20-9788yfqfyftsjzCNCEIP RODRIGUEZFacility:B4Jxgfq: 06-20-2022 End: 67-84-1855mvypdxxkuzSS JOAQUIN HOYFacility:P0Tvgjm: 06-08-2022 End: 25-90-6039jgrnnowbhmMZ JOAQUIN HOYFacility:I8Glywz: 05-30-2022 End: 84-54-4479yaglyfvwhgFR JOAQUIN HOYFacility:A3Vildq: 04-19-2022 End: 01-62-2096dbevbhraqmPsfdcx Starbuck II Other [employer] Other Start: 12-31-1193Quzmth outpatient visit 25 minutes Nichelle BRAGGG Liz OrthopedicsStart: 04-03-2022 End: 99-58-6566otgptqpmguCA JOAQUIN HOYFacility:Y3Qxpwg: 02-05-2022 End: 18-55-0116kvhqrbkxpsOKBB LACOURFacility:V5Cdnrs: 01-29-2022 End: 51-30-3574zvqabobbkcHDWQTD CARLISLEFacility:A1Ufznn: 01-18-2022 End: 40-58-2219kvzwpbtdsaEkiezz Starbuck II Other [employer] Other Start: 02-33-2600Kujoyt outpatient visit 25 minutes Nichelle BRAGGG Liz OrthopedicsStart: 01-03-2022 End: 72-92-3989cpspzkpxmrObzump Sorin II Other [employer] Other Start: 37-23-7773Fmoyro outpatient visit 15 minutes Nichelle BRAGGG Liz OrthopedicsStart: 09-14-2021 End: 27-86-9646wlmnmqkjwaAdrzsl Sorin II Other [employer] Other Start: 12-50-0878Xgsrpa outpatient new 30 minutes Nichelle Bailey IIFPG [facility] Procedures DateProcedureProcedure DetailPerforming ClinicianStart: 45-47-2835Ovbew culture Joaquin Aleman MD Work Phone: Start: 97-30-6953Kdmlwcoe tomography of abdomen and pelvis with contrastJoaquin Aleman MD Work Phone: Start: 51-81-9682VvkomlfiydqZhwqlxn NILL Start: 88-83-9188JwkvqxqxkgnmqoqzzvprItgvhjz NILL Comment on above:with biopsyStart: 01-22-2006 EsophagogastroduodenoscopyMichael NILL Start: 63-44-6980GpkdphjkblfQupcasf NILL Abdominal hysterectomyMichael NILL Bilateral salpingectomy with oophorectomyMichael NILL History of subtotal thyroidectomyMichael NILL Plan of Treatment DateCare ActivityDetailAuthorStart: 08-11-2025 End: 97-61-0333Ckgjbce encounter doufxtwkd08/26/2025 2:00 PM EST Office Visit [facility] [address] [place] [id number] Kameron Cifuentes MD [address] [place] [address] [facility] EndocrinologyStart: 07-21-2025 End: 50-91-5153Ozuppmplxnypq AntibodyThyroglobulin Antibody Lab Routine Low TSH level Expected: 07/21/2025 (Approximate), Expires: 07/21/2026[facility] Work Phone: Comment on above:Expected: 07/21/2025 (Approximate), Expires: 07/21/2026Start: 07-21-2025 End: 42-12-8014Ycmzwwg peroxidase antibodyThyroid peroxidase antibody Lab Routine Low TSH level Expected: 07/21/2025 (Approximate), Expires: 07/21/2026 [facility] HealthcareComment on above:Expected: 07/21/2025 (Approximate), Expires: 07/21/2026Start: 07-21-2025 End: 02-62-8541Zmnwsoyjayb [Units/volume] in Serum or PlasmaTSH Lab Routine Low TSH level Expected: 07/21/2025 (Approximate), Expires: 07/21/2026[facility] Comment on above:Expected: 07/21/2025 (Approximate), Expires: 07/21/2026Start: 07-21-2025 End: 46-22-9091Wfrfkfgkrtd receptor antibodyThyrotropin receptor antibody Lab Routine Low TSH level Expected: 07/21/2025 (Approximate), Expires: 07/21/2026 [facility] HealthcareComment on above:Expected: 07/21/2025 (Approximate), Expires: 07/21/2026Start: 07-21-2025 End: 23-95-0526Xkxsvomql (T4) free [Mass/volume] in Serum or PlasmaT4, free Lab Routine Low TSH level Expected: 07/21/2025 (Approximate), Expires: 07/21/2026 [facility] HealthcareComment on above:Expected: 07/21/2025 (Approximate), Expires: 07/21/2026Start: 07-21-2025 End: 07-57-0124Kdzovzqxdlfkxbzp (T3) Free [Mass/volume] in Serum or PlasmaT3, free Lab Routine Low TSH level Expected: 07/21/2025 (Approximate), Expires: 07/21/2026[facility] HealthcareComment on above:Expected: 07/21/2025 (Approximate), Expires: 07/21/2026Start: 07-21-2025 End: 53-49-4692UV Thyroid glandUS thyroid Imaging Routine Low TSH level Expected: 07/21/2025, Expires: 07/21/2026[facility] HealthcareComment on above: Expected: 07/21/2025, Expires: 07/21/2026Start: 07-21-2025 End: 01-72-6294Ahaclcr encounter fjabvrxrs32/05/2025 1:40 PM EST Office Visit [facility] [address] [place] [address] Kameron Cifuentes MD [address] [place] [address] ArrivedNOMS Montero EndocrinologyComment on above:ArrivedStart: 77-39-2402BrbvitbrsGenesis Hospitaltart: 44-81-1140Mzytpew referralSt. [facility]'S Hospital Work Phone: Start: 88-26-3256Lngjv cultureGenesis Hospitaltart: 25-65-4285Rdnpcmjq identified in Urine by CultureUrine CultureGenesis Hospitaltart: 08-12-2024 End: 15-89-1930Vztooqa encounter cutvptiwq72/27/2024 1:00 PM EST Office Visit [facility] [address] [place] [address] Layla Schmid PA [address] [place] [address] [facility] R[facility]TEStart: 05-21-2024 End: 94-53-6534Stonzmj encounter ytelvkrab41/05/2024 2:00 PM EDT Office Visit [facility] [place] [address] [place] [phone] Layla Schmid PA [address] [place] [address] ArrivedNOOHIOHEALTH SHELBY [facility]PITAL ROUTEComment on above: ArrivedComprehensive metabolic 2000 panel - Serum or PlasmaElyria Memorial HospitalPatient EducationHemorrhoids Gastritis Omeprazole Know your MedAvita Health System [facility] Work Phone: Patient referralSt. Rita'S Hospital Work Phone: [facility] Immunizations Immunization DateImmunizationNotesCare ProviderFacilityNEGATED: Highlighted row has not occurred!47-13-8862wqstesbjf virus vaccine, unspecified formulation Pablo VALENCIA [phone]-Fqdir General Surgery [facility] CompanyueComment on above: Result Comment: Will consult with primary care physician Payers DatePayer CategoryPayerPolicy [id number]-pay2022Medicaid [id number] 2022Medicare [id number] [id number] [id number] [id number] [id number] 2.0.7.52945[id number] 2.0.1.930550.3.57[id number] 2.0.1.562768.3.57[id number] 2.840.1.608209.3.57[id number] 2.0.1.446994.3.57[id number] 2.840.1.755640.3.57[id number] 2.160.1.587935.3.57[id number] 2.16840.1.517113.3.57[id number] 2.840.1.609171.3.57[id number] 2.16840.1.083257.3.57[id number] 2.840.1.491107.3.57[id number] 2.840.1.538019.3.57[id number] 2..840.1.061879.3.579.[id number] 2..0.1.031483.3.57[id number] 2.16.840.1.12[id number] 2..840.1.583969.3.579.2.531 [id number] 2.840.1.3[id number] 2..840.1.189958.3.579.2.531 Social History DateTypeDetailFacilityStart: 46-46-4873Xut Assigned At BirthAdena Fayette Medical Centertart: 03-10-2024 End: 59-80-0077Mgsdbxb smoking statusEx-smoker (finding)[facility]ertart: 02-08-2016 End: 45-08-1973Zjxvyza smoking statusNeverPromedica Defiance [facility] History of tobacco useCurrent smokerNOMS HealthcareHistory of tobacco use Cigarette SmokerNOMS HealthcareStart: 04-15-2024 End: 05-46-6362Qyxggivry beverage intakeLifetime non-drinker (finding)[facility] HealthcareStart: 21-62-8469Mzdccsh of Social functionNOMS HealthcareStart: 40-44-5915Qbl assigned at birthNot on fileNOMS HealthcareStart: 21-64-4195Lux Female (finding)Gen[facility] Hospitaltart: 56-92-2550Hya Assigned At BirthFeCleveland Clinic FoundationTobacco smoking status NHIS Tobacco smoking consumption unknownWooster Community Hospital Functional Status QdueVqxymraftzRnldakZfeeezsl84-08-3485Xtvejhunwv StatusN/AFAdena Health Systemevue Clinical Notes 09-14-2021 to 07-21-2025 Note Date & HbacPncbLfjtfjpq98-20-3589 History of Present illness Narrative* Kameron Cifuentes MD - 07/21/2025 1:40 PM EST Oumar Cunningham is a 70 y.o. female No [...] SURGERY OOPHORECTOMY THYROID SURGERY documented in this encounterWestern Missouri Medical CenterKhhqsivewo30-19-4858 Evaluation note* Author Haley Morrow [facility] HospitalAuthoredAusanta fe indian hospitalorlando 2024 1:13pm69 y/o female referred to the GI clinic for evaluation of LLQ and RUQ pain. + lower abdominal pain nausea vomiting and diarrhea for last few months. TSH is 0.274. CBC CMP fecal calprotectin HIV celiac panel were unremarkable CT abdomen/pelvis on 12/10/2024 was unremarkable Will arrange for EGD/colonoscopy. Will refer to endocrinology for evaluation of low TSH [facility] Work Phone: 1(745) 733-608208-04-2025 NoteUT Cardiology - [facility] Subjective Oumar Cunningham is a 70 y.o. year old female patient being seen for 10 month follow up. Patient states she occasional has tightness in her chest patient states it feels like a squeezing, which occurs with and without activity, Patient complains of leg pain in the back/cramps and swelling. Patient complains of heart racing/palpitations with anxiety. Frequent urination, back pain, and hip pain, bruising. Bleeding. 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) Overweight Pituitary mass Ulcerative colitis (CMS/HCC) Family History Problem Relation Name Age of Onset Anemia Mother Breast cancer Mother Diabetes Mother Hypertension Mother Hyperlipidemia Mother Coronary artery disease Father Diabetes Father Hypertension Father Hyperlipidemia Father Stroke Paternal Grandmother Coronary artery disease Paternal Grandmother Social History Tobacco Use Smoking status: Former Types: Cigarettes Passive exposure: Current Smokeless tobacco: Never Substance Use Topics Alcohol use: Not Currently Drug use: Never HPI Oumar is seen in follow up on chest [...] medical therapy for hypertension or other conditions. At last visit of 05/08/2024 I added Imdur [address] Aleman changed her treatment to cardizem CD 120 mg daily. She seems to have been doing well on it. Today she reports that she has been doing well. She denies chest pain. She has no shortness of breath. She denies palpitations and leg edema. Review of Systems Constitutional: Weight loss: 12# since 03/25/2023. Cardiovascular: Positive for leg swelling. Negative for chest pain. Respiratory: Positive for cough. Hematologic/Lymphatic: Bruises/bleeds easily. Musculoskeletal: Positive for back pain and joint pain. Genitourinary: Positive for frequency. Neurological: Positive for dizziness and light-headedness. All other systems reviewed and are negative. Objective Visit Vitals BP 131/78 (BP Location: Left arm, Patient Position: Sitting) Pulse 57 Ht 1.6 m (5' 3 ) Wt 68 kg (150 lb) SpO2 97% BMI 26.57 kg/m??? Smoking Status Former BSA 1.74 m??? Physical Exam Constitutional: Appearance: She is [...] mouth in the morning., Disp: , Rfl: dilTIAZem CD (Cardizem CD) 120 mg 24 hr capsule, Take 120 mg by mouth in the morning., Disp: , Rfl: ezetimibe (Zetia) 10 mg tablet, Take 1 tablet (10 mg) by mouth in the morning., Disp: 90 tablet, Rfl: 3 nitroglycerin (Nitrostat) 0.[address], [address] 1 tablet (0.3 mg) under the tongue every (more content not included)...[facility] 02-02-2025 Evaluation note* Author Imad Marymount HospitalAuthoredAugust 2024 1:13pm69 y/o female referred to the GI clinic for evaluation of LLQ and RUQ pain. + lower abdominal pain nausea vomiting and diarrhea for last few months. TSH is 0.274. CBC CMP fecal calprotectin HIV celiac panel were unremarkable CT abdomen/pelvis on 12/10/2024 was unremarkable Will arrange for EGD/colonoscopy. Will refer to endocrinology for evaluation of low TSH [facility] Work Phone: 1(361) 911-819203-27-2025 Radiology Diagnostic study noteREGENCY HOSPITAL CLEVEL[facility] [place] [address] [place] [address] CT Scan Report Signed Patient: Oumar Cunningham MR#: [id number] : 1955 Acct:[id number] Age/Sex: 69 / F ADM Date: 5 Loc: CT Room: Type: [facility] Attending Dr: Haley Morrow MD Copies to: [...] mass or hydronephrosis. Subcentimeter low attenuating lesions involvingthe right kidney too small for adequate characterization. [...] Chavez Jr., D.OBob12/10/2024 4:37 PM Dictation Location: [facility] Transcribed By: [facility] 12/10/24 1637 Dictated By: Kev Chavez Jr, DO 12/10/24 1634 Signed By: 12/10/24 1637 [facility]03-06-2025 Evaluation note* Author Haley Morrow [facility] HospitalAuthoredMar 2024 12:35pm69 y/o female referred to the GI clinic for evaluation of LLQ and RUQ pain. + lower abdominal pain nausea vomiting and diarrhea for last few months. -Will check CBC CMP, TSH, ESR, CRP, fecal calprotectin HIV ab, Celiac panel, fecal elastase and stool infectious workup -Will arrange for CT abdomen/pelvis. -Will arrange for EGD/colonoscopy. [facility] Work Phone: 1(690) 144-283308-23-2024 NoteUT Cardiology - [facility] Subjective Oumar Cunningham is a 69 y.o. year old [...] Use Topics Alcohol use: Not Currently HPI Oumar is seen in follow up on chest [...] mg SL table (more content not included)... [facility]06-28-2024 NoteGeneral Surgery Office/Clinic Note Chief Complaint [...] gastritis Anxiety Bilateral lo (more content not included)...[facility] HospitalComment on above:Result Comment: Electronically Signed By: ERIK SMALLWOOD, Pablo Workman\Date and Time Signed: 03/13/24 10:51 [id number] NotePROCEDURE: CT CSPINE WO CON COMPARISON: None. [...] Electronically authenticated by: YENI RUST Date: 2022-06-25 13:55[facility]10-10-2022 NotePROCEDURE: XR HAND LT MIN 3V HISTORY: [...] mild degenerative joint disease. 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 When she comes back for the 6- week visit we will get a lumbar spine x-ray. 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 We again discussed her right knee primary osteoarthritis. I again informed her that arthritis ismainly localized to the inside part of the [...] point we will do some PT and trythe Celebrex prior to requesting a viscosupplementation. 6. Follow up 3 months [employer] Other 04-20-2022 Evaluation note* Encounter Date Diagnosis Assessment Notes Treatment Notes Treatment Clinical Notes Dec, Primary osteoarthritis of right knee (ICD-10 - M17.11) Dec,rimary osteoarthritis of right hip (ICD-10 - M16.11) Dec,therI had a long discussion with the patient regarding her right knee pain. At this point she did not get much relief at all with a standard steroid injection. So we discussed Zilretta injections versus v iscosupplementation. Given the very minimal relief she got with a steroid injection I recommended aviscosupplementation injection. We will plan to get approval [...] knee compared to a partial knee replacement. [employer] Other 12-30-2021 Evaluation note* Encounter Date Diagnosis Assessment Notes Treatment Notes Treatment Clinical Notes Aug, Primary osteoarthritis of right knee (ICD-10 - M17.11) We performed a cortisone injection into the knee joint under sterile technique. Patient tolerated the injection well without adverse reaction. Aug,rimary osteoarthritis of right hip (ICD-10 - M16.11) Aug,Other 1. We had a long discussion with the patient today concerning their right knee osteoarthritis. The radiographs do show osteoarthritis of the knee. At this time the patient would like to avoid surgical intervention. We did discuss the risk and benefits of surgical versus nonoperative management. Thepatient would like to proceed with nonoperative management. [...] this well. 5. 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 Dizziness Dizziness and giddiness Migraine without aura and without status migrainosus, not intractable (CMS/HCC) Memory change Memory loss documented in this encounter [facility] HealthcareEvaluation noteNo assessment information availableChildren'S Hospital Of [facility] Work Phone: Evaluation note* Diagnosis Low TSH level- Primary Nonspecific abnormal results of thyroid function study documented in this encounter [facility]* Diagnosis Low TSH level- Primary 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 documented in this encounter [facility] HealthcareHistory general Narrative - Reported* Type Description Date Medical History COPD Medical HistoryemphysemaMedical Historymigraine headacheMedical HistoryPanic attacksSurgical Historythyroidectomy-partialSurgical HistoryhysterectomySurgical HistoryoophorectomySurgical Historyeye surgeryHospitalization Historypneumonia Hospitalization Historychest pain04/2021 [employer] Other Hospital Discharge instructions No data available for this section [facility] CenterInfogami [facility] Discharge instructionsAmbulatory Orders* Referral to Endocrinology Time Frame: 05/05/25, Location: None [facility] Work Phone: Hospital Discharge instructions Additional Instructions DISCHARGE INSTRUCTIONS FOR UPPER ENDOSCOPY WHAT TO EXPECT: - You may feel full, gassy or cramping after your procedure. In some cases, this may be from a few hours to a day. Walking may help relieve the discomfort. - Your throat may feel sore today from the scope that the doctor passed through your throat to visualize your stomach. Take a throat lozenge or suck on ice to ease the discomfort. - You may notice some streaks of blood in your sputum if the doctor has taken a biopsy. - You should begin to recover from anesthesia within 1 hour of the procedure, however may feel groggy for the next 24 hours. DO's AND DON'Ts: - Call your doctor right away if you have a hard abdomen, severe pain, vomiting or if you cough up large amounts of blood. - Call your doctor if you develop any rashes, hives or difficulty breathing. - If you take 81 mg aspirin for your heart it is safe to resume this medication. - If you take other blood thinner medications your doctor will instruct you when these can safely be resumed. - Do NOT drive for 24 hours. - Do NOT operate machinery such as power tools, Parental Healthn mowers, snow blowers, sewing machines, etc. for 24 hours. - Avoid alcoholic beverages and drugs for allergies, nerves, or sleep. - Do NOT stay alone. Do NOT leave your child unattended. - Do NOT make important personal or business decisions or sign any legal documents. - Eat solid foods and drink liquids in smaller amounts than usual until normal appetite returns. If you should experience an upset stomach, liquids high in sugar content (soda, John-Aid, non-acid juices) are recommended. - Do NOT smoke. - Do take it easy today. You need not stay in bed, but avoid strenuous activities such as jogging or working out. DISCHARGE INSTRUCTIONS FOR COLONOSCOPY WHAT TO EXPECT: - You may feel full, gassy or cramping after your procedure. In some cases, this may be from a few hours to a day. Walking may help relieve the discomfort. - If you have polyp(s) removed you may note some minor bloody discharge after your first bowel movements. - You should begin to recover from anesthesia within 1 hour of the procedure, however may feel groggy for the next 24 hours. DO's AND DON'Ts: - Call your doctor right away if you have a hard abdomen, sever pain, are passing lots of bright red blood or clots. - Call your doctor if you develop any rashes, hives or difficulty breathing. - Let your doctor know if you have not had a bowel movement by 3 days after your procedure. - If you take 81 mg aspirin for your heart it is safe to resume this medication. - If you take other blood thinner medications your doctor will instruct you when these can safely be resumed. - Do NOT drive for 24 hours. - Do NOT operate machinery such as power tools, lawn mowers, snow blowers, sewing machines, etc. for 24 hours. - Avoid alcoholic beverages and drugs for allergies, nerves, or sleep. - Do NOT stay alone. Do NOT leave your child unattended. - Do NOT make important personal or business decisions or sign any legal documents. - Eat solid foods and drink liquids in smaller amounts than usual until normal appetite returns. If you should experience an upset stomach, liquids high in sugar content (soda, John-Aid, non-acid juices) are recommended. - You can resume normal activities tomorrow. FOLLOW UP & RECOMMENDATIONS: -Start omeprazole 40 mg daily -Please call the office and make a follow up appointment to see me in [#] weeks if you do not have an appointment scheduled. -Notify the doctor if you have any problems. -Repeat colonoscopy in 10 years. -Follow up in the office - Office number [phone]. [facility] Work Phone: Progress note No data available for this section [facility] Reason for referral (narrative)No reason for referral information availableChildren'S Hospital [facility] Work Phone: Summary Purpose Family History No Family History Records Found Relationship Condition Age at Onset Recorded Date/T nichelle daughter Angina pectoris Unknown Heart diseaseUnknowngrandparentDeceasedUnknownAneurysmUnknownmotherDeceased UnknownMalignant neoplasmUnknown Relationship Condition Age at Onset Recorded Date/T nichelle daughter Heart disease Unknown Angina pectorisUnknownmotherDeceasedUnknownMalignant neoplasmUnknownMalignant neoplasm of breastUnknownmaternal grandfatherAneurysmUnknownDeceasedUnknown paternal grandfatherDeceasedUnknownpaternal grandmotherDeceasedUnknownmaternal grandmotherDeceasedUnknownfatherMalignant neoplasm of skinUnknownMalignant neoplasm of lungUnknownbrotherMalignant neoplasm of skinUnknown Advance Directives No Advanced Directives Records Found [...] 2024 11:1 1am Alternating constipation and diarrhea [facility] 2024 11:11am Bloating November 19, 2024 11:1 1am Dyspepsia November 19, 2024 11:1 1am Nausea November 19, 2024 11:1 1am Chief Complaint Admit Date Unknown April 01, 2025 3:43 pm Chief Complaint Admit Date Unknown April 01, 2025 3:43 pm follow up labs May 05, 2025 1: 01pm Reason for Visit Admit Date Abdominal burning sensation in right upp er quadrant May 05, 2025 1:01pm Abdominal pain May 05, 2025 1: 01pm Alternating constipation and diarrhea [facility] 2024 1:01pm Bloating May 05, 2025 1: 01pm Dyspepsia May 05, 2025 1: 01pm Nausea May 05, 2025 1: 01pm Chief Complaint Admit Date Unknown April 01, 2025 3:43 pm follow up labs May 05, 2025 1: 01pm bloating,nausea, constipation, diarrhea June 09, 2025 7:01am Additional Source Comments INFORMATION SOURCE (unrecogn ized section and content) DATE CREATED AUTHOR 11/12/2020 [facility] DATE CREATED AUTHOR AUTHOR'S ORGANIZ ATION 11/03/2022 [facility] DATE CREATED AUTHOR AUTHOR'S ORGANIZ ATION 05/01/2024 [facility] DATE CREATED AUTHOR AUTHOR'S ORGANIZ ATION 04/21/2025 [facility] DATE CREATED AUTHOR AUTHOR'S ORGANIZ ATION 06/18/2025 [facility] DATE CREATED AUTHOR AUTHOR'S ORGANIZ ATION 07/23/2025 [facility] EPIC REASON FOR VISIT (unrecogniz ed section and content) ReasonCommentsMemory LossHeadacheDizzinessReasonCommentsPituitary Problem Follow-up1.5 YRS NEW REF/LAB Patient Care team informatio n (unrecognized section and content) Team Status: Active Member Role Status Dates Joaquin Aleman MD Primary Care Provider Active Team Status: Inactive Member Role Status Dates Joaquin Aleman MD Primary Care Provider Active Start: November 19, 2024 End: November 19, 2024ImaNicole Castrejon ProviderActiveStart: November 19, 2024 End: November 19, 2024 Team Status: Inactive Member Role Status Dates Joaquin Aleman MD Primary Care Provider Active Start: December 10, 2024 End: December 10, 2024ImaNicole Castrejon ProviderActiveStart: December 10, 2024 End: December 10, 2024 Team Status: Inactive Member Role Status Dates Joaquin Aleman MD Attending Provider Active Sta rt: April 01, 2025 End: April 01, 2025 Team Status: Inactive Member Role Status Lyn Morrow MD Attending Provider Active Start: May 05, 2025 End: May 05, 2025DoKarina [facility]flow[facility] ProviderActiveStart: May 05, 2025 End: May 05, 2025Team MemberRelationshipSpecialtyStart DateEnd Date Joaquin Aleman MD PCP - GeneralFamily Medicine02/08/16 Haley Morrow MD [address] [place] [address] ReferringWistrofirelands [facility]05/11/25 Team Status: Active Member Role Status Dates Joaquin Aleman MD Primary Care Provider Active Start: June 09, 2025 Nicole Claudio ProviderActiveStart: June 09, 2025 Haley Morrow MD[facility] ProviderActiveStart: June 09, 2025 Team MemberRelationshipSpecialtyStart DateEnd Joaquin Harper MD [facility]06/03/24Team MemberRelationshipSpecialtyStart DateEnd Date Joaquin Aleman MD PCP - [facility]06/03/24 Goals (unrecognized section and content) Goals may be documented in a n alternate section Source Comments (unrecognize d section and content) In the event this informatio n is protected by the Federal Confidentiality of Alcohol and Drug Abuse Patient Records regulations: The Federal rules restrict any use of the information to criminally investigate or prosecute any alcohol or drug abuse patient.[facility] FOR RECORDS PERTAINING TO PATIENTS WHO ARE [...] BE BASED ON THE PRIMARY CLINICAL RECORDS. [employer] [facility]. provides no warranty or guarantee of the accuracy or completeness of information in this document.
--- OUTSIDE RECORDS SUMMARY | 2025-07-23 12:28 | XMS_ITS | Clinical Summary ---
Author Organization [facility] Address [address] [place] [address] Care Team Providers Care Installer Name Role Phone Joaquin Aleman MD Primary Care Provider [phone] Allergies Active AllergyReactionsCriticalityNoted LhsnHrtcazyaYvnuqethocGatcceyo73/01/2024 Beldvdu01/12/0051Jdxel71/12/2022 Medications MedicationSigDispense QuantityRefillsLast FilledStart DateEnd DateStatus albuterol 90 mcg/actuation inhaler INHALE 2 PUFFS BY MOUTH 4 TIMES A DAYActive nitroglycerin (Nitrostat) 0.3 mg SL tablet Indications:Prinzmetal's anginaPlace 1 tablet (0.3 mg) under the tongue every 5 (five) minutes if needed for chest pain. 100 tablet ctive pantoprazole (ProtoNix) 40 mg EC tablet Take 40 mg by mouth before breakfast. Do not crush, chew, or split.Active hyoscyamine 0.125 mg dissolvable tablet Take 0.125 mg by mouth every 4 (four) hours if needed.Active cholecalciferol, vitamin D3, 50 mcg (2,000 unit) capsule Take 2,000 Units by mouth in the morning.Active famotidine (Pepcid) 40 mg tablet Take 40 mg by mouth.4Active lisinopril 5 mg tablet Indications:Essential (primary) hypertensionTAKE 1 TABLET BY MOUTH EVERY DAY 90 tablet 5Active Additional Information Patient not taking.Reported on 04/19/2025 carvedilol (Coreg) 3.125 mg tablet Take 3.125 mg by mouth with breakfast and with evening meal.5Active dilTIAZem CD (Cardizem CD) 120 mg 24 hr capsule Take 120 mg by mouth in the morning.Active pravastatin (Pravachol) 10 mg tablet Indications:Mixed hyperlipidemiaTake 1 tablet (10 mg) by mouth at bedtime. 90 tablet 508/6Active ezetimibe (Zetia) 10 mg tablet Indications:Mixed hyperlipidemiaTAKE 1 TABLET BY MOUTH EVERY DAY IN THE MORNING 90 tablet tive isosorbide mononitrate ER (Imdur) 30 mg 24 hr tablet Indications:Prinzmetal angina,Primary hypertensionTAKE 1 TABLET BY MOUTH ONCE DAILY IN THE MORNING, DO NOT CRUSH OR CHEW 90 tablet 5Active Active Problems ProblemNoted DateDiagnosed DateBMI 29.0-29.9,adult05/06/2024yslipidemia 05/06/2024History of transient ischemic tqxlyh3805/06/2024Lumbar radiculopathy 05/06/20248969Hjlyzvbxyp48/21/2024Ulcerative ixuaxvv8405/06/20243749Dwgplsjcd86/31/2024 Overview (05/06/2024): history of dizziness consistent with vertigo. She is having some increase in symptoms that occur inepisodes and described as spinning sensation and sometimes lightheadedness sensation that can occurregardless of position change. She is apprehensive about getting carotid ultrasound and TCD due to cost. Memory fpgytg3504/15/2024 Overview (05/06/2024): The patient states that she is having short term memory issues. She states that she is not sleepingwell and is under stress which could likely be contributing. MOCA 12/31/2022 was 26/30. Memory is stable. Flkxamhh32/31/2024 Overview (05/06/2024): Headaches made up of migraines [...] unchanged from prior study, left cerebellar meningioma 0k26d3di. She is following with endocrinology and sees them next month. 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 Pituitary mass6391Rdqivja57/12/2022hest pain08/27/2022hronic obstructive lung oneowgk5908/27/20227649Ymfjaep57/12/8189Vqutcfonxy43/12/2022Palpitations 08/27/2022rimary fibromyalgia kynpeeke09/12/3237Hgtcnjyihpkfj50/12/2022 Hypertensive ddxysfqu79/17/2018 Assessment & Plan (10/17/2023 12:49 PM EST): Hypertension is elevated in office, she is adamant that b/p is well controlled at home. Staff to call pt in 1-2 weeks to review b/p log. Continue lisinopril 5 mg daily- she reports a dry cough but states this is r/t her lung disease- wediscussed side effect of lisinopril can be cough and she voiced understanding. Prinzmetal angina Assessment & Plan (10/17/2023 12:41 PM EST): Stable continue all medications Hyperlipidemia Assessment & Plan (10/17/2023 12:50 PM EST): Lipids elevated and pt prefers to start with diet and lifestyle modifications Will repeat lipid level in 3 months to re-evaluate Encounters DateTypeDepartmentCare WuczObbupmoodqw46/24/2025Ref[facility] [place] [address] [place] [address] Jarad Almazan MD Mixed hyperlipidemia; Prinzmetal angina; Primary hypertensionfrom Last 3 Months Family History Medical HistoryRelationNameCommentsCoronary artery diseaseFatherDiabetesFather HyperlipidemiaFatherHypertensionFatherAnemiaMotherBreast cancerMotherDiabetes MotherHyperlipidemiaMotherHypertensionMotherCoronary artery diseasePaternal GrandmotherStrokePaternal GrandmotherRelationNameStatusCommentsFatherDeceased MotherDeceasedPaternal Grandmother Social History Tobacco UseTypesPacks/DayYears UsedDateSmoking Tobacco: FormerCigarettesPassive Smoke Exposure: CurrentSmokeless Tobacco: Never Tobacco Cessation:Counseling Given: Not Answered Alcohol UseStandard Drinks/WeekCommentsNot Currently0 (1 standard drink = 0.6 oz pure alcohol)UT Safety & EnvironmentAnswerDate RecordedFear of Current or Ex-PartnerNot on file11/07/2023Emotionally AbusedNot on file11/07/2023hysically AbusedNot on file11/07/2023Sexually AbusedNot on file11/07/2023hysically or Sexually AbusedNot on file11/07/2023CommentsUnknownSex and Gender InformationValueDate RecordedSex Assigned at WnqnpLddiog39/01/2025 1:40 PM EDT Legal KxrMzqczz89/29/2022 10:20 PM EDTGender NvjwninxTagdyd86/01/2025 1:40 PM EDTSexual OrientationHeterosexual or Zaffrcap30/01/2025 1:40 PM EDT Last Filed Vital Signs Vital SignReadingTime TakenCommentsBlood Cvndudkc836/7808 2:13 PM EDT Kwxbo521204/19/2025 2:13 PM EDTTemperature--Respiratory Rate--Oxygen Mmpnenpbjn19% 04/19/2025 2:13 PM EDTInhaled Oxygen Concentration--Nxwtyl48 kg (150 lb) 04/19/2025 2:13 PM LCDMxdxmv192 cm (5' 3 )04/19/2025 2:13 PM EDTBody Mass Index 26.5708 2:13 PM EDT Plan of Treatment Health MaintenanceDue DateLast DoneCommentsCT Ldhgokxlpnbl1957FIT-DNA 1957FIT1957FOBT1957Medicare Annual Wellness (AWV)1957 Wmfzaurbvhvyz1957Depression Ycdhfyymo72/28/1969Pneumococcal Vaccine: 50+ Years (1 of 2 - PCV)1976Adult Ptplrcu9504/12/19799084Szppjoyze97/28/1997Zoster Vaccines (1 of 2)2007Fall Risk Ajifftgtc16/28/2022COVID-19 Vaccine (1 - season)2025Influenza Vaccine (#1)8733Bfxwlmkjtlr75/02/2029 06/17/2019, 12/06/2005Colorectal Cancer Hnwodifwh26/02/2029HIB VaccinesAged Out No longer eligible based on patient's age to complete this topicHPV VaccinesAged OutNo longer eligible based on patient's age to complete this topicIPV Vaccines Aged OutNo longer eligible based on patient's age to complete this topic Meningococcal B VaccineAged OutNo longer eligible based on patient's age to complete this topicMeningococcal VaccineAged OutNo longer eligible based on patient's age to complete this topicRotavirus VaccinesAged OutNo longer eligible based on patient's age to complete this topic Insurance Care Teams Team MemberRelationshipSpecialtyStart Date Joaquin Aleman MD [address] [place] [address] [facility] - Ydtynhk98/12/22
[2025-07-23 13:38] LABS: Cholesterol 246 mg/dL (<=200); HDL Cholesterol 87 mg/dL (40-60); Triglycerides 105 mg/dL (<=150); VLDL CHOLESTEROL 21.0 mg/dL
[2025-07-23 13:41] LABS: Alanine Aminotransferase 14 U/L (14-59); Albumin Globulin Ratio 1.3; Albumin Level 4.4 g/dL (3.4-5.0); Alkaline Phosphatase 53 U/L (46-116); Aspartate Amino Transferase 14 U/L (15-37); Globulin 3.4 g/dL; Total Protein 7.8 g/dL (6.4-8.2)
== END 2025-07-23 12:22 | disposition home or self-care (01) ==
LOC: LAB 12:24
PROVIDERS: PCP Family Medicine; Visit Provider Internal Medicine Interventional Cardiology
DX: E78.2 Mixed hyperlipidemia (principal)
CPT/HCPCS: 36415; 80061; 80076

== ENCOUNTER 2025-07-23 12:29 | Outpatient (OUT) | payer MEDICARE, MEDICAID, SELFPAY ==
--- OUTSIDE RECORDS SUMMARY | 2025-07-23 12:37 | XMS_ITS | CCD ---
Author Organization [facility] Care Team Providers Care Supervisor Photoengraving Name Role Phone Nichelle Bailey II Unavailable [...] Care Unavailable HOY, DR GARZA Consulting Unavailable IJNY, DR GARZA Admitting Unavailable NICHOLAS, DR GARZA [...] AHMAD Admitting Unavailable ESAU, AHMAD Consulting Unavailable NICHELLE BAILEY Admitting Unavailable NICHELLE BAILEY Attending Unavailable DR JOAQUIN ALEMAN Primary Care Unavailable Joaquin Aleman Primary Care Physician Joaquin Aleman Referring Unavailable Pablo VALENCIA Attending Unavailable Pablo VALENCIA Attending Unavailable Unavailable Primary Care Provider Unavailabl e Joaquin Aleman MD Primary Care Provider Odalys SMALLWOOD, Haley Attending Provider Joaquin Aleman MD Attending Provider DANIEL RIBEIRO Attending Unavailable DANIEL RIBEIRO Attending Unavailable Haley Morrow MD Attending Provider [phone] Joaquin Aleman MD Primary Care Provider [phone] [...] OnsetReaction(s) Facility (2 sources)Coconut extract; Translations: [COCONUT]Drug Mibwjst46-33-8086VwnPromedica Flower Hospital Repository (1 source)Misc-Food; Translations: [Misc-Food]Food allergy (disorder)09-11-2014 [facility] Repository (1 source)No Known Medication Allergies; Translations: [No Known Medication Allergies]Propensity to adverse reactions (disorder)[facility] Repository (6 sources)Coconut extractDrug Baezfoi39-11-9647QEPW Healthcare (7 sources)Onion extract; Translations: [ONION]Drug Jhnpoon44-15-2444ZOCY Healthcare (1 source)amLODIPine; Translations: [AMLODIPINE]Drug Pmhruhr77-62-1174NiwolxisioSumma Health Repository Medications Current Medications MedicationDrug Class(es)DatesSig (Normalized)Sig (Original)[id number] 200 actuat albuterol 0.09 mg/actuat metered dose inhaler (6 sources)beta2-Adrenergic Agonisttake 1 puff(s) by inhalation every eight hoursalbuterol HFA 90 mcg/act inhaler Inhale 1 puff every 8 (eight) hours Active calcium carbonate 1500 mg oral tablet (5 sources)Start: 06-44-0180phha 1 tablet by mouth twice dailyCalcium Carbonate [...] 0.05 mg oral capsule (8 sources)Vitamin DStart: 89-60-6053cxzu 1 capsule by mouth once daily Cholecalciferol (Vitamin D3) 50 mcg (2,000 unit) capsule Active 2000 UNIT PO Daily May 05, 2025 12:00am Complies with drug therapyCyclosporine (2 sources)Calcineurin Inhibitor ImmunosuppressantStart: 74-70-5488Fpgpwazovuls 0.05 % dropperette Active 1 DROPS OPHTHALMIC As Directed May 05, 2025 12:00am Complies with drug therapyStart: 23-29-5160obogxXQIMQQB (Restasis) 0.05 % ophthalmic emulsion (3 sources)take 1 drop(s) into the eye(s) in the morningcycloSPORINE (Restasis) 0.05 % ophthalmic emulsion 1 drop in the morning and 1 drop before bedtime. Activediclofenac sodium 0.01 mg/mg topical gel (3 sources)Nonsteroidal Anti-inflammatory DrugStart: 74-91-7496Mliuzzua 1 % as directed Externally every 4 hours for 30 days Dec, Active1 ml erenumab- aooe 70 mg/ml auto-injector (9 sources)Start: 59-17-0414gogzxq 1 mL by subcutaneous injection onceerenumab (Aimovig) 70 MG/ML injection Indications: Migraine without aura and without status migrainosus, not intractable Inject 1 mL (70 mg) under the skin every 28 (twenty-eight) days 1 mL 2 05/21/2024 ActiveAimovig 70 MG/ML as directed Subcutaneous Activeezetimibe 10 mg oral tablet (7 sources)Dietary Cholesterol Absorption InhibitorStart: 36-67-9372pger 1 tablet by mouth once dailyEzetimibe 10 mg tablet Active 10 MG PO Daily November 19, 2024 1:00am Complies with drug therapyfamotidine 40 mg oral tablet (4 sources)Histamine-2 Receptor AntagonistStart: 29-42-8774kuii 1 tablet by mouth twice dailyfamotidine 40 [...] (14 sources)Angiotensin Converting Enzyme InhibitorStart: 04-01-2024 End: 22-87-5621gzaf 1 tablet by mouth once dailylisinopril 5 MG tablet Take 1 tablet by mouth Daily 04/01/2024 ActiveStart: 07-51-0171txuk 1 tablet by mouth once dailylisinopril 5 [...] Activemelatonin 5 mg oral tablet (1 source)Start: 02-20-1689tbyw 1 tablet by mouth once daily at bedtime as neededmelatonin 5 mg oral tablet 5 mg = 1 tab(s), Oral, Once a day (at bedtime), PRN for insomnia, Refills(s) 0 Start Date: 03/10/24 Status: Orderedmeloxicam 7.5 mg oral tablet (1 source)Nonsteroidal Anti-inflammatory DrugStart: 75-53-7873ksar 1 tablet by mouth every twenty-four hoursMeloxicam 7.5 MG 1 tablet Orally Once a day for 30 day(s) Aug, Activemetoprolol tartrate 25 mg oral tablet (1 source)beta-Adrenergic BlockerMetoprolol Tartrate 25 MG as directed Orally Activeomeprazole 40 mg delayed release oral capsule (1 source)Proton Pump InhibitorStart: 29-99-8079lwzc 1 capsule by mouth once dailypantoprazole 40 [...] ActiveVentolin HFA 90 mcg/inh Aerosol (1 source)Start: 77-47-5600wodk 2 puff(s) by inhalation four times dailyVentolin HFA 90 mcg/inh Aerosol 2 puff(s), Inhalation, QID Start Date: 05/28/19 Status: Ordered Completed/Discontinued Medications MedicationDrug Class(es)DatesSig (Normalized)Sig (Original)[id number] Zwi-Lnxp-Lwu-Asb-C (4 sources)Osmotic Laxative, Vitamin CStart: 11-19-2024 End: 71-17-7489xfsc 1 dose by mouth once in the npbigbyKos9801-Gcd Ftv-Zcny-Oen-Asb-C (Plenvu) 140-9-5.2 gram powder in packet, sequential Discontinued 140 ML PO Once 1 November 19, 2024 1:00am May 05, 2025 1:08pm at 4:00 pm take first dose followedby 16 oz glass of liquid take second dose at 11:00 pm followed by a 16 oz glass of liquidStart: 09-87-7642djxo 1 dose by mouth once in the eveningStart: 93-41-2124hmfg 1 dose by mouth once in the iherjpvBdw1147-Akz Xox-Cuca-Urx-Asb-C (Plenvu) 140-9-5.2 gram powder in packet, sequential Active 140 ML PO Once 1 November 19, 2024 1:00am at 4:00 pm take first dose followed by 16 oz glass of liquid take second dose at 11:00 pm followed by a 16 oz glass of liquidaspirin 81 mg chewable tablet (8 sources)Platelet Aggregation Inhibitor, Nonsteroidal Anti-inflammatory Drug Start: 11-19-2024 End: 73-32-9610favp 2 tablets by mouth once dailyAspirin 81 mg tablet,chewable Discontinued 2 TAB PO Daily November 19, 2024 1:00am May 05, 2025 1:08pm FreeTextSi tablets Orally Once a day; Note: Source Status: Taking; Provider: Sorin Morales II ( )Start: 44-93-2010gcms 1 tablet by mouth once dailyaspirin 81 mg oral tablet 81 mg = 1 tab(s), Oral, Daily Start Date: 05/28/19 Status: Orderedcelecoxib 100 mg oral capsule (2 sources)Nonsteroidal Anti-inflammatory DrugStart: 46-66-8763aohv 1 capsule by mouth twice daily for arthritisCelecoxib 100 MG 1 capsule for arthritis Orally BID for 30 day(s) January, Not-Sdwjfq54 hr isosorbide mononitrate 30 mg extended release oral tablet (8 sources)Nitrate VasodilatorStart: 11-19-2024 End: 83-38-7461ywxz 1 tablet by mouth every twenty-four hoursIsosorbide [...] acetonide 40 mg/ml injectable suspension (4 sources)CorticosteroidStart: 50-10-6059Vcpjyle-40 Apr, 120 mgStart: 05-33-1539Bqysqvm -40 mg Aug, 120 mg Problems Active Problems Problem ClassificationProblemDateDocumented DateEpisodic/ChronicAnxiety disorders (3 sources)Anxiety; Translations: [Panic attack]72-36-1084SltdpvfSuqxlkx obstructive pulmonary disease and bronchiectasis (5 sources)Chronic obstructive lung disease; Translations: [Pulmonary emphysema] 62-02-5699YzgaiqzWoqavvvc atherosclerosis and other heart disease (2 sources)Angina pectoris with documented spasm; Translations: [Angina pectoris with documented spasm]Onset: 42-67-6703JzkthdoNtpiutdyk of lipid metabolism (3 sources)Dyslipidemia; Translations: [Mixed hyperlipidemia]Onset: 08-27-2022 06-05-8902SbpxhnaDbdanqnxay disorders (2 sources)Gastroesophageal reflux cijzrom82-80-3621VajfnmhXbpwfxzyc hypertension (3 sources)Hypertensive disorder; Translations: [Essential (primary) hypertension]Onset: 042500-21-9294ZlwzgpySjljcxmfj and duodenitis (1 source)Afxmzzbny52-54-7708OlyygishAjfnfoza; including migraine (10 sources)Migraine; Translations: [Migraine, unspecified, not intractable, without status migrainosus]Onset: 581090-38-7667CuioxmdOlslme and vomiting (9 sources)Nausea; Translations: [Nausea]Onset: 075517-87-7904Pitylvks Noninfectious gastroenteritis (1 source)Lldujka54-05-4226BquejipqUhnqkpalyifrzu (20 sources)Osteoarthritis of right hip joint; Translations: [Unilateral primary osteoarthritis, right hip]Onset: 09-14-2021 Resolved: 24-38-7331JxzrtzoXnzaw and unspecified benign neoplasm (4 sources)Benign neoplasm of cerebral meninges; Translations: [BENIGN NEOPLASM CEREBRAL MENINGES]Onset: 31-16-9708SelcqbvXkgon circulatory disease (1 source)History of transient ischemic bdzmni45-76-8368KvlrogvxTmzgh connective tissue disease (1 source)Nuofowqnotos57-91-3358RhbtkdxpVgtwc connective tissue disease (1 source)Primary fibromyalgia gahhwfag38-08-5254LlieurpfTeohf endocrine disorders (6 sources)Pituitary mass; 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] Onset: 583509-43-1893VrekkhhCdrsu endocrine disorders (2 sources)Rathke's pouch cyst; 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]68-68-8815AggxxioUnrdw gastrointestinal disorders (6 sources)Finding of sensation of abdomen; Translations: [Other specified symptoms and signs involving the digestive system and abdomen]11-15-3950Ihslzrkd Other gastrointestinal disorders (6 sources)Constipation alternates with diarrhea; Translations: [Other specified symptoms and signs involving the digestive system and abdomen]11-19-2024 EpisodicOther gastrointestinal disorders (6 sources)Abdominal bloating; Translations: [Abdominal distension (gaseous)] 00-72-5113AysisqotGdywn gastrointestinal disorders (1 source)Diarrhea, unspecified; Translations: [Diarrhea, unspecified]Onset: 50-28-2513NahnnojfCzqlc nervous system disorders (1 source)Dgorazrehw68-09-6613KyfvtafMulfq nutritional; endocrine; and metabolic disorders (1 source)Zuqpyveopk29-98-0717YfbjyxspNymhw nutritional; endocrine; and metabolic disorders (1 source)Overweight in adulthood with body mass index of 25 or more but less than 9564-25-9075EnkcozksBfekl screening for suspected conditions (not mental disorders or infectious disease) (8 sources)Decreased thyroid stimulating hormone level; Translations: [Other specified abnormal findings of blood chemistry]EpisodicOther skin disorders (1 source)Mass of posterior lobe of ticjotmjh42-08-6680CkgbnzkoLobpicyt enteritis and ulcerative colitis (1 source)Ulcerative amjanir06-74-9163HgndvffSzuoefcpnsv; intervertebral disc disorders; other back problems (6 sources)Radiculopathy, lumbar region; Translations: [Lumbar radiculopathy] Onset: 04-19-2022 Resolved: 98-53-9150BrtaibbpPfurcjjegeox (3 sources)LOW BACK PAIN, UNSPECIFIED; Translations: [LOW BACK PAIN, UNSPECIFIED]Onset: 90-22-5205Zeecspfpxejb (2 sources)CONTACT W/AND (SUSP) EXPOS COVID-19; Translations: [CONTACT W/AND (SUSP) EXPOS COVID-19]Onset: 76-43-6227Sxvulodiwpwr (1 source)COUGH, UNSPECIFIED; Translations: [COUGH, UNSPECIFIED]Onset: 76-76-4514Pgdoqwyxntkx (2 sources)R79.89 - Other specified abnormal findings of blood chemistryViral infection (1 source)COVID-19; Translations: [COVID-19]Onset: 04-04-2022 Past or Other Problems Problem ClassificationProblemDateDocumented DateEpisodic/ChronicAbdominal pain (16 sources)Indigestion; Translations: [Epigastric pain]Onset: 12-10-2024 36-56-4528RcwoxgmxEuwyoulvyz associated with dizziness or vertigo (8 sources)Dizziness; Translations: [Dizziness and giddiness]Onset: 04-15-2024 51-84-4713YyhicvtrK Codes: Fall (1 source)Unspecified fall, initial encounter; Translations: [UNSPECIFIED FALL INITIAL ENCOUNTER]Onset: 68-28-6165InuqcyihYkkfxyrdgvyen symptoms and ill- defined conditions (2 sources)Dysuria; Translations: [Frequency of micturition]Onset: 06-03-2022 EpisodicNeoplasms of unspecified nature or uncertain behavior (12 sources)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; Translations: [Neoplasm of uncertain behavior ofpituitary gland]Onset: 20-84-8068JhgvzebnMnxog aftercare (1 source)Other discharge coordinator (current) drug therapy; Translations: [OTH GROUP LEADER SEMICONDUCTOR TESTING CURRENT DRUG THERAPY]Onset: 64-65-0289NnaseebpSfeqv circulatory disease (1 source)Other specified symptoms and signs involving the circulatory and respiratory systems; Translations:[OTH SPEC SX SIGNS INVLV CIRC RS]Onset: 47-77-5311FfheosutWytrf gastrointestinal disorders (3 sources)Other specified symptoms and signs involving the digestive system and abdomen; Translations: [Abdominal pain, right upper quadrant]Onset: 12-10-2024 26-95-5211RrncremoOtkdf gastrointestinal disorders (2 sources)Abdominal distension (gaseous); Translations: [Flatulence, eructation, and gas pain]Onset: 762848-10-8789VzxnrliyWpdjx injuries and conditions due to external causes (1 source)Other specified injuries of head, initial encounter; Translations: [OTH SPEC INJURIES HEAD INITIAL ENC]Onset: 61-42-0613HlavcxufFpyll lower respiratory disease (4 sources)Other nonspecific abnormal finding of lung field; Translations: [OTH NONSPECIFIC ABN FIND LNG FIELD]Onset: 23-76-7351ElyytvuoOslsealz codes; unclassified (8 sources)Memory impairment; Translations: [Other amnesia]Onset: 04-15-2024 80-17-5508JeydxxvfQefklnvxl and history of mental health and substance abuse codes (1 source)Personal history of nicotine dependence; Translations: [PERSONAL HISTORY OF NICOTINE DEPEND]Onset: 73-98-0132IckqqkuhDjkwbfg and strains (1 source)Strain of muscle, fascia and tendon at neck level, initial encounter; Translations: [STRN MUSC FASCTENDON NECK LEVL INT]Onset: 28-84-5149Mzswuyrh Superficial injury; contusion (2 sources)Contusion of lower back and pelvis, initial encounter; Translations: [Contusion of left hand, initial encounter]Onset: 01-04-3213SbwnfrjxZgtwdyhcuqpa (1 source)LOW BACK PAIN, UNSPECIFIED; Translations: [LOW BACK PAIN, UNSPECIFIED] Onset: 07-37-8394Kbivvpxinuld (1 source)CONTACT W/AND (SUSP) EXPOS COVID-19; Translations: [CONTACT W/AND (SUSP) EXPOS COVID-19]Onset: 02-81-9369Vsjnhjq tract infections (4 sources)Urinary tract infection, site not specified; Translations: [UTI SITE NOT SPECIFIED]Onset: 75-96-1184Ybrxpkjp Results Test NameValueInterpretationReference RangeFacilityLon 06-09-2025L Specimen: [id number] Received: 06/09/25 Status: ISAIAS Navarrete Num: [id number] Spec Type: Surgical Subm Dr: Haley Morrow MD Tissues: A Small Intestine - Biopsy/Polyp (SMALL BOWEL BX) B Gastric Biopsy (GASTRIC BX) C Colon Biopsy (RANDOM COLON BX) Procedures: HE/6, Gross/Micro L4/3, H PYLORI, IHC First AB Age/ Patient Sex Location Account Attending Physician Oumar Cunningham 70/F [id number] Haley Morrow MD SPEC NUM: [id number] RECD: 06/09/25 STATUS: ISAIAS HASSANPriscilla NUM: [id number] ODILON: 06/09/25-8[address] [facility] DR: Haley Morrow MD ENTERED: 06/09/[address]: SPEC TYPE: Surgical DEPT: S ENTERED BY: [id number] RECV BY: [id number] ORDERED: HE/6, Gross/Micro L4/3, H PYLORI, IHC [...] submitted in a single cassette. (1, ns, [id number]) JASMIN Specimen: [id number] Received: 06/09/25 Status: ISAIAS Navarrete Num: [id number] Spec Type: Surgical Subm Dr: Haley Morrow MD Tissues: A Small Intestine - Biopsy/Polyp (SMALL BOWEL BX) B Gastric Biopsy (GASTRIC BX) C Colon Biopsy (RANDOM COLON BX) Procedures: HE/6, Gross/Micro L4/3, H PYLORI, IHC First AB Patient: Oumar Cunningham [id number] (Continued) Specimen: [id number] Received: 06/09/25 (Continued) Gross Description (Continued) Signed (signature on file) Nichelle Arreola JR, MD 06/11/25823 Specimen: [id number] Received: 06/09/25 Status: ISAAIS Navarrete Num: [id number] Spec Type: Surgical Subm Dr: Haley Morrow MD Tissues: A Small Intestine - Biopsy/Polyp (SMALL BOWEL BX) B Gastric Biopsy (GASTRIC BX) C Colon Biopsy (RANDOM COLON BX) Procedures: HE/6, Gross/Micro L4/3, H PYLORI, IHC First AB Patient: Oumar Cunningham [id number] (Continued) Specimen: [id number] Received: 06/09/25 (Continued) Gross Description (Continued) Part [...] pylori is interpreted as negative. CPT Codes 14585 x 3, 30023 Specimen: [id number] Received: 06/09/25 Status: IASIAS Navarrete Num: [id number] Spec Type: Surgical Subm Dr: Haley Morrow MD Tissues: A Small Intestine - Biopsy/Polyp (SMALL BOWEL BX) B Gastric Biopsy (GASTRIC BX) C Colon Biopsy (RANDOM COLON BX) Procedures: HE/6, Gross/Micro L4/3, H PYLORI, IHC First AB ------- (more content not included)...[facility] Phys[facility] GroupOffice Visiton 30-72-6497Qtsrhv-up [id number] Oumar Cunningham 1955 F Date Provider Department Center 04/19/2025 DANIEL YUNG Al Erasto Family History Problem Relation Age of Onset Anemia Mother Breast cancer Mother Diabetes Mother Hypertension Mother Hyperlipidemia Mother Coronary artery disease Father Diabetes Father Hypertension Father Hyperlipidemia Father Stroke Paternal Grandmother Coronary artery disease Paternal Grandmother Family Status - Relation Status Age at Mother Father Paternal Grandmother Level of Service:36098 CT OFFICE/OUTPATIENT ESTABLISHED MOD MDM 30 [facility] HospitalUrine Cultureon 03-03-7987Ljfjijdd identified Cx Nom (U)No Growth 2 Days PERFORMED BY: [place] [address] PATHOLOGIST VEHICLE INSPECTOR AIMEE JUNIOR M.D.NormalAdventhealth Four Corners Er Physician GroupComment on above: Performed By: #### CUU #### [place] [address] USAUrine cultureOrdered By: Joaquin Aleman on 83-35-1515Shdtytgd identified Cx Nom (U)No Growth 2 DaysSt. John Of God HospitalCT abdomen pelvis w conon 99-73-7422GG abdomen pelvis w [facility] [place] [address] [place] [address] CT Scan Report Signed Patient: Oumar Cunningham MR#: [id number] : 1955 Acct:[id number] Age/Sex: 69 / F ADM Date: 12/10/24 Loc: CT Room: Type: [facility] Attending Dr: Haley Morrow MD Copies [...] 4:37 PM Dictation Location: RADIO-PC-18 Transcribed By: [facility] 12/10/24 1637 Dictated By: Kev Chavez Jr, DO 12/10/24 1634 Signed By: 12/10/24 [facility] Physician GroupOffice Visiton 55-85-5463Iwkydr- up [id number] Oumar Cunningham 1955 F Date Provider Department Center 05/08/2024 Tracee-DANIEL RIBEIRO [facility] Family History Problem Relation Age of Onset Anemia Mother Breast cancer Mother Diabetes Mother Hypertension Mother Hyperlipidemia Mother Coronary artery disease Father Diabetes Father Hypertension Father Hyperlipidemia Father Stroke Paternal Grandmother Coronary artery disease Paternal Grandmother Family Status - Relation Status Age at Mother Father Paternal Grandmother Level of Service:20486 CT OFFICE/OUTPATIENT ESTABLISHED MOD [facility] 97-58-1051SemjbawsyCmotrrbjc From: So Finley LPN To: GSN - Clinical; Sent: 04/23/2024 14:41:29 EDT Show up: 03/22/2034 07:00:00 EDT Subject: colonoscopy recall Due Date/Time: 04/22/2034 07:00:00 EDT Reminder/Recall Patient due for screening colonoscopy 04/22/2034.[facility] HospitalConsent for Procedure/Surgeryon 41-67-8107Ukxohui for Procedure/Surgery [id number]#1.00TIFSt. Rita's HospitalFacesheeton 00-62-5633Sfdvcytaw [id number]#1.00[facility] HospitalAmbulatory Visit Summaryon 31-64-0852Wpvhjkfoqp Visit Summary OUMAR CUNNINGHAM :1955 Visit Date:03/10/2024 [...] you for choosing us for your care. [facility] HospitalRAD - Ultrasound Reporton [id number] - Ultrasound Report [id number]#1.00TIFSt. Rita's HospitalPhysician Referralon 91-82-1334Gtheerwba Referral [id number]#1.00TIFSt. Rita's HospitalACTH, PLASMAon 20-30-4511QHIT, Zkfryy36.7 pg/mLNormal7.2-63.3The [facility] Md, Cancer CenterComment on above:Result Comment: ACTH reference interval for samples collected between 7 and 10 AM.Performed By: #### UAMIC #### [facility] [address] [address] [address] Annie RainCORTISOLoalexa 86-18-7707Ytungozm3.7 ug/dLNoFisher-Titus Medical Center Comment on above:Result Comment: Cortisol AM 6.2 - 19.4 Cortisol PM 2.3 - 11.9Performed By: #### CORTISO #### [facility] [address] [place] [address] Dr. Annie RainFSHoalexa 08-67-2509UFX57.8 mIU/mLNormalPromedica Flower HospitalComment on above:Result Comment: Adult Female: Follicular phase 3.5 - 12.5 Ovulation phase 4.7 - 21.5 Luteal phase 1.7 - 7.7 Postmenopausal 25.8 - 134.8Performed By: #### LBCFSH #### [facility] [address] [place] [address] Dr. Annie RainGROWTH HORMONEon 88-04-4246Ioqkfd Hormone, Serum1.5 ng/mLNormal 0.0-10.0[facility] HospitalComment on above:Performed By: #### UAMIC #### [facility] [address] [place] [address] Dr. Annie RainXohzmQSMWJKW-LFWT-QRBTPW-FACTOR 1on 07-73-6115Gjhatde-Like Growth Factor I94 ng/dLXerfup21-524Qfg [facility], Cancer CenterComment on above:Performed By: #### INSGF1 #### [place] [address] Dr[address] Annie RainLUTEINIZING HORMONE (LH)on 50-94-9713FS90.1 mIU/mLNormalThe [facility], Cancer CenterComment on above:Result Comment: Adult Female: Follicular phase 2.4 - 12.6 Ovulation phase 14.0 - 95.6 Luteal phase 1.0 - 11.4 Postmenopausal 7.7 - 58.5Performed By: #### LBCLH #### [facility] [address] [place] [address] Dr. Annie RainPROLACTINon 72-46-2636Zefxzzvmr5.4 ng/mLNormal4.8-23.3The [facility], Md, Cancer CenterComment on above:Performed By: #### PROLAC #### [facility] [address] [place] [address] Dr. Annie RainFREE T4on 52-48-0730Ypue T4 [Mass/Vol]1.01 ng/dLNormal0.76-1.46 The [facility], Md, Cancer CenterComment on above:Performed By: #### FT4 #### [facility] [address] [place] [address] Dr. Annie RainPROF CHEM 8 (BAS METB)on 15-76-3535Xivbi gap [Moles/Vol]11.4 mmol/LNormalThe Al HospitalComment on above:Performed By: #### UAMIC #### [facility] [address] [address] [address] Annie RainCalcium [Mass/Vol]9.4 mg/dLNormal8.5-10.1[facility] Comment on above:Performed By: #### UAMIC #### [facility] [address] [address] [address] Annie RainChloride [Moles/Vol]105 mmol/HMuvbml81-218InsPromedica Flower Hospital Comment on above:Performed By: #### UAMIC #### [facility] [address] [address] [address] Annie RainCO2 [Moles/Vol]29.6 mmol/BYvxmnf62.0-32.0[facility] Comment on above:Performed By: #### UAMIC #### [facility] [address] [address] [address] Annie RainCreatinine [Mass/Vol]0.55 mg/dLNormal0.55-1.02The [facility] Md, Cancer CenterComment on above:Performed By: #### UAMIC #### [facility] [address] [address] [address] Annie ChnaeyGFR-AF EQUATORIAL GUINEAN>60Normal>=60[facility] HospitalComment on above:Performed By: #### UAMIC #### [facility] [address] [address] [address] Annie ChaneyGFR-NON AF EQUATORIAL GUINEAN>60Normal>=60[facility] HospitalComment on above:Performed By: #### UAMIC #### [facility] [address] [address] [address] Annie RainGlucose [Mass/Vol]80 mg/rVJevbfz08-156AwuPromedica Flower Hospital Comment on above:Performed By: #### UAMIC #### [facility] [address] [place] [address] Dr. Annie RainPotassium [Moles/Vol]4.0 mmol/LNormal3.5-5.1[facility] Comment on above:Performed By: #### UAMIC #### [facility] [address] [address] [address] Annie RainSodium [Moles/Vol]142 mmol/NZqyodc371-795Isq [facility] Comment on above:Performed By: #### UAMIC #### [facility] [address] [place], [place] [address] Dr. Annie RainUrea nitrogen [Mass/Vol]8.0 mg/dLNormal7.0-18.0The [facility] Md, Cancer CenterComment on above:Performed By: #### UAMIC #### [facility] [address] [address] [address] Annie RainUrea nitrogen/Creatinine [Mass ratio]14.5 mg/mgNoFisher-Titus Medical CenterComment on above:Performed By: #### UAMIC #### [facility] [address] [place] [address] Dr. Annie Mtz 45-17-3053HFU2.404 uIU/mLNormal0.358-3.740Promedica Flower HospitalComment on above:Performed By: #### UAMIC #### [facility] [address] [place] [address] Dr. Annie RainXR LSPINE MIN 4 VIEWSon 11-65-5124UZ LSPINE MIN 4 VIEWSEXAM: XR LSPINE MIN 4 VIEWS EXAMINATION: XR LSPINE MIN 4 VIEWS HISTORY: Lumbar radiculopathy COMPARISON: 02/03/2019 FINDINGS: BONES: 2 mm anterolisthesis of L4 in relation L5. Mild spondylosis. Moderate to severe facet osteoarthropathy DISC SPACES: Multilevel disc space narrowing PARASPINOUS: Negative. No paraspinous abnormality is seen. OTHER: Vascular calcifications IMPRESSION: Degenerative changes Electronically authenticated by: YENI RUST Date: 2022-08-27 07:31[facility]MRI [facility] W CONon 36-69-0031OMM BRAIN WO W CONEXAMINATION: MRI BRAIN WO [...] Electronically authenticated by: SOHAM HO Date: 2022-08-15 22:51NormAshtabula County Medical CenterCREATININEon 81-65-9496Jmjcelrhuu [Mass/Vol]0.62 mg/dLNormal 0.55-1.02The [facility] Clinicment on above:Performed By: #### CREA #### [facility] [address] [place] [address] Dr. Annie ChaneyGFR-AF EQUATORIAL GUINEAN>60Normal>=60The [facility] on above:Performed By: #### CREA #### [facility] [address] [place] [address] Dr. Annie ChaneyGFR-NON AF EQUATORIAL GUINEAN>60Normal>=60[facility] on above:Performed By: #### CREA #### [facility] [address] [place] [address] Dr. Annie RainCT ABD/PELVIS WO CONon 54-27-7443WM ABD/PELVIS WO CONEXAMINATION: CT ABD/PELVIS WO CON, [...] Electronically authenticated by: YENI RUST Date: 2022-06-25 13:[address] [place] [address] HEAD WO CONon [id number] HEAD WO CONEXAMINATION: CT HEAD WO CON [...] Electronically authenticated by: PABLO MILLER Date: 2022-06-25 13:56NormAshtabula County Medical CenterCULTURE URINEon 50-15-7777QHVJAUK URINECulture Observations: LIGHT GROWTH OF MIXED GENITAL SILAS. NO POTENTIAL PATHOGENS SEEN.NormalThe [facility], Cancer CenterComment on above:Performed By: #### INSGF1 #### [facility] [address] [place] [address] Dr. Annie Nuñez RANDOM W/MICROSCOPICon 51-70-9678RVIHACZTNROO SEENNormalNONE SEENPromedica Flower HospitalComment on above:Performed By: #### UAMIC #### [facility] [address] [place] [address] Dr. Annie Gar Ql (U)NegativeNormalNEGATIVEThe [facility] Comment on above:Performed By: #### UAMIC #### [facility] [address] [place] [address] Dr. Annie RainCASTSHERRILL SEENNormalNONE SEENPromedica Flower HospitalComment on above:Performed By: #### UAMIC #### [facility] [address] [place] [address] Dr. Annie Vincent (U)CLEARNormalCLEARPromedica Flower HospitalComment on above: Performed By: #### UAMIC #### [facility] [address] [place] [address] Dr. Annie Greco (U)YELLOWNormalYELLOWPromedica Flower HospitalComment on above: Performed By: #### UAMIC #### [facility] [address] [place] [address] Dr. Annie Pinedaystals LM Nom (Urine sed)NONE SEENNormalNONE SEENPromedica Flower HospitalComment on above:Performed By: #### UAMIC #### [facility] [address] [place] [address] Dr. Valencia ChangEpithelial cells LM Ql (Urine sed)RARENormalNONE SEEN /RAREThe [facility], Cancer CenterComment on above:Performed By: #### UAMIC #### [facility] [address] [place] [address] Dr. Annie RainGlucose Ql (U)NegativeNormalNEGATIVEPromedica Flower HospitalComment on above:Performed By: #### UAMIC #### [facility] [address] [place] [address] Dr. Annie RainHemoglobin Ql (U)SMALLAbnormalNEGATIVESheltering Arms Hospital on above:Performed By: #### UAMIC #### [facility] [address] [place] [address] Dr. Annie RainKetones Ql (U)TRACEAbnormalNEGATIVEPromedica Flower HospitalComment on above:Performed By: #### UAMIC #### [facility] [address] [place] [address] Dr. Annie RainLEUKOCYTESNegativeNormalNEGATIVEPromedica Flower HospitalComment on above:Performed By: #### UAMIC #### [facility] [address] [place] [address] Dr. Annie RainMUCOUSNONE SEENNormalNONE SEENPromedica Flower HospitalComment on above:Performed By: #### UAMIC #### [facility] [address] [place] [address] Dr. Annie Clarktrite Ql (U)NegativeNormalNEGATIVEPromedica Flower HospitalComment on above:Performed By: #### UAMIC #### [facility] [address] [place] [address] Dr. Annie RainpH (U)6.5 [pH]Normal5-9The [facility], Cancer CenterComment on above: Performed By: #### UAMIC #### [facility] [address] [place] [address] Dr. Annie RainArlggKAX0-0Gtrcamae3-8Qoj [facility], [facility] CenterComment on above:Performed By: #### UAMIC #### [facility] [address] [place] [address] Dr. Annie RainSPEC GRAVITY1.295Dqnrfd7.005-<=1.025The [facility], Cancer CenterComment on above:Performed By: #### UAMIC #### [facility] [address] [place] [address] Dr. Annie Nuñez PROTEINNegativeNormalNEGATIVE/ TRACEThe [facility] Comment on above:Performed By: #### UAMIC #### [facility] [address] [place] [address] Dr. Annie RainUrobilinogen Qn (U)1.0 {Willam'U}/dLNormal0.2 - 1.0The [facility], Cancer CenterComment on above:Performed By: #### UAMIC #### [facility] [address] [place] [address] Dr. Annie RainWBC0-2AbnormalNONE SEENThe [facility], Cancer CenterComment on above: Performed By: #### UAMIC #### [facility] [address] [place] [address] Dr. Annie RainCT CHEST WO CONon 09-20-7750EE CHEST WO CONEXAMINATION: CT CHEST WO CON [...] authenticated by: YENI RUST Date: 2022-06-08 13:10NormalThe [facility] HospitalCULTURE URINEon 72-57-4841ZYLKDYT URINECulture Observations: NO GROWTH.NormalPromedica Flower HospitalComment on above:Performed By: #### INSGF1 #### [facility] [address] [place] [address] Dr. Annie Nuñez RANDOM W/MICROSCOPICon 70-82-7455CDZTYJPGTRSPQVjaxqaibTNYB SEENPromedica Flower HospitalComment on above:Performed By: #### UAMIC #### [facility] [address] [place] [address] Dr. Annie Gar Ql (U)NegativeNormalNEGATIVEPromedica Flower Hospital Comment on above:Performed By: #### UAMIC #### [facility] [address] [place] [address] Dr. Annie White SEENNormalNONE SEENPromedica Flower HospitalComment on above:Performed By: #### UAMIC #### [facility] [address] [place] [address] Dr. Annie Vincent (U)CLEARNormalCLEARPromedica Flower HospitalComment on above: Performed By: #### UAMIC #### [facility] [address] [place] [address] Dr. Annie Greco (U)LT. YELLOWNormalYELLOWPromedica Flower HospitalComment on above:Performed By: #### UAMIC #### [facility] [address] [place] [address] Dr. Annie Villatoro LM Nom (Urine sed)NONE SEENNormalNONE SEENPromedica Flower HospitalComment on above:Performed By: #### UAMIC #### [facility] [address] [address] [address] Valencia ChangEpithelial cells LM Ql (Urine sed)RARENormalNONE SEEN /RAREThe [facility], Cancer CenterComment on above:Performed By: #### UAMIC #### [facility] [address] [place] [address] Dr. Annie RainGlucose Ql (U)NegativeNormalNEGATIVEPromedica Flower HospitalComment on above:Performed By: #### UAMIC #### [facility] [address] [place] [address] Dr. Annie RainHemoglobin Ql (U)NegativeNormalNEGATIVESheltering Arms Hospital on above:Performed By: #### UAMIC #### [facility] [address] [place] [address] Dr. Annie RainKetones Ql (U)NegativeNormalNEGATIVEPromedica Flower HospitalComment on above:Performed By: #### UAMIC #### [facility] [address] [place] [address] Dr. Annie RainLEUKOCYTESNegativeNormalNEGATIVEPromedica Flower HospitalComment on above:Performed By: #### UAMIC #### [facility] [address] [place] [address] Dr. Annie RainMUCOUSNONE SEENNormalNONE SEENPromedica Flower HospitalComment on above:Performed By: #### UAMIC #### [facility] [address] [place] [address] Dr. Annie RainNitrite Ql (U)NegativeNormalNEGATIVEPromedica Flower HospitalComment on above:Performed By: #### UAMIC #### [facility] [address] [place] [address] Dr. Annie RainpH (U)6.0 [pH]Normal5-9The [facility] Md, Cancer CenterComment on above: Performed By: #### UAMIC #### [facility] [address] [place] [address] Dr. Annie RainTfkccMIR7-9Jwwklm2-2Dni [facility], [facility] CenterComment on above:Performed By: #### UAMIC #### [facility] [address] [place] [address] Dr. Annie RainSPEC GRAVITY<=1.790Cozyfqlf1.005-<=1.025The [facility] Comment on above:Performed By: #### UAMIC #### [facility] [address] [place] [address] Dr. Annie RainUA PROTEINNegativeNormalNEGATIVE/ TRACEThe [facility] Comment on above:Performed By: #### UAMIC #### [facility] [address] [place] [address] Dr. Annie RainUrobilinogen Qn (U)0.2 {Willam'U}/dLNormal0.2 - 1.0The [facility], Cancer CenterComment on above:Performed By: #### UAMIC #### [facility] [address] [place] [address] Dr. Annie RainWBC0-2AbnormalNONE SEENThe [facility], Cancer CenterComment on above: Performed By: #### UAMIC #### [facility] [address] [place] [address] Dr. Annie RainCovid-19 PCR (CVDTB)on 65-58-7178MKGM-CoV-2 (COVID-19) RNA GREGOR+probe Ql (Unsp spec)DetectedCritically abnormalNOT DETECTEDThe [facility], Cancer CenterComment on above:Result Comment: This test is not yet approved or cleared by the [place] FDA. When there are no FDA-approved or cleared tests available, and other criteria are met, FDA can make tests available under an emergency access mechanism called an Emergency Use Authorization (EUA). The EUA for this test is supported by the [employer] of Health and Human Service's declaration that [...] longer be used).Performed By: #### INSGF1 #### [facility] [address] [address] [address] [facility]ASCENS[facility] B[facility] W CONon 45-26-8581QOX BRAIN WO W CON Begin Addendum #1 [...] no prior studies available for comparison.Normal The [facility], Cancer CenterBUNon 62-27-2039Wlud nitrogen [Mass/Vol]13.0 mg/dLNormal 7.0-18.0The [facility], Cancer CenterComment on above:Performed By: #### CRETee BUN #### [facility] Laboratory [address] [address] [address] Annie RainCREATININEon 23-61-2298Djsaiqzltn [Mass/Vol]0.70 mg/dLNormal 0.55-1.02The [facility], Cancer CenterComment on above:Performed By: #### INSGF1 #### [facility] Laboratory [address] [place] [address] Dr. Annie ChaneyGFR-AF EQUATORIAL GUINEAN>60Normal>=60The [facility], Cancer CenterComment on above:Performed By: #### INSGF1 #### [facility] [address] [address] [address] Annie ChaneyGFR-NON AF EQUATORIAL GUINEAN>60Normal>=60The [facility], Cancer CenterComment on above:Performed By: #### INSGF1 #### [facility] Laboratory [address] [address] [address] Annie Rain head/brain wo/w conon 42-71-0878TP head/brain wo/w con [facility] [place] [address] MRI Report Signed Patient: Oumar Cunningham MR#: [id number] 53 : 1955 Acct:[id number] Age/Sex: 65 / F ADM Date: 11/07/20 Loc: MR Room: Type: [facility] Attending Dr: Soham [...] Remberto Coulter M.D.11/08/2020 11:48 AM Dictation Location: [address] [address] Transcribed By: [facility] 11/08/20 1148 Dictated By: Remberto Coulter II, MD 11/08/20 1135 Signed By: 11/08/[address]8[facility] HospitalIST[facility] CREon 11-07-2020 Creatinine [Mass/Vol]0.6 mg/dLNormal0.6-1.3FTrinity Health System Comment on above:Result Comment: ER/ESD physician is notified/shown all ISTAT results. Critical values may be confirmed by laboratory testing if deemed necessary by ER attending doctor.Performed By: #### ISCRE #### [address] Point of Care testing ,ISTAT GFR (> 60NormTrumbull Memorial HospitalComment on above:Result Comment: GFR estimated reference range: According to KDOQI guidelines, <60 ml/min/1.73m2 is sufficient to diagnose a patient with chronic kidney disease. PERFORMED BY: [place] [address] PATHOLOGIST VEHICLE INSPECTOR MARK SERRATO M.D.Performed By: #### ISCRE #### [facility] [address] [place] [address] Point of Care testing ,ISTAT GFR (Non- Am> 60NoElyria Memorial HospitalComment on above:Performed By: #### ISCRE #### [address] Point of Care testing , Vital Signs Date TimeVital SignValuePerforming GcpjueosfKbmsnnbr37-44-9330 13:30-0500Body omjygf419.6 Sd Cifuentes MD Work Phone: [phone] [place] [address]-05-2025 13:30-0500Body mass index (BMI) [Ratio]26.09 kg/z5DuxhkKameron Cifuentes MD Work Phone: [phone] [address]-05-2025 13:30-0500Body yvtrcb78.95 kgKameron Cifuentes MD Work Phone: [phone] [address]-05-2025 13:30-0500Diastolic blood okzklrua76 mm[Hg]Kameron Cifuentes MD Work Phone: [phone] [address]-05-2025 13:30-0500Heart rate68 /min Kameron Cifuentes MD Work Phone: [phone] [place] [address]-05-2025 13:30-0500Respiratory rate16 /minKameron Cifuentes MD Work Phone: [phone] [place] [address]-05-2025 13:30-2787CxT0% (BldA) [Mass fraction]98 %Kameron Cifuentes MD Work Phone: [phone] [place] [address]-05-2025 13:30-0500Systolic blood dquqrdlb771 mm[Hg]Kameron Cifuentes MD Work Phone: [facility] SpringfieldYyoykfequa02-48-9255 09:40-0400Diastolic blood duaxxbko55 mm[Hg]Joaquin Aleman MD Work Phone: [phone]09-24-2025 09:40-0400 Heart rate62 /Lindsay Aleman MD Work Phone: [phone] [place], [place] 2471609-24-2025 09:40-0400 Respiratory rate16 /Lindsay Aleman MD Work Phone: [phone] [place], [place] 2471609-24-2025 09:40-0400 SaO2% (BldA) [Mass fraction]99 %Joaquin Aleman MD Work Phone: [phone] [place], [place] 2471609-24-2025 09:40-0400 Systolic blood tqvxihdd529 mm[Hg]Joaquin Aleman MD Work Phone: [phone] [place], [place] 2471609-24-2025 07:15-0400 Body hnbcbe206.56 cmJoaquin Aleman MD Work Phone: [phone] [place], [place] 2471609-24-2025 07:15-0400 Body imvnrh43.67 kgJoaquin Aleman MD Work Phone: [phone] [place], [place] 2471608-20-2025 13:04-0400 Body .56 cmJoaquin Aleman MD Work Phone: [phone] [place], [place] 2471608-20-2025 13:04-0400 Body mass index (BMI) [Ratio]26.4 kg/g3QlulpmpJoaquin Aleman MD Work Phone: [phone] [place], [place] 2471608-20-2025 13:04-0400 Body pidlkj32.85 kgJoaquin Aleman MD Work Phone: [phone] [place], [place] 2471603-06-2025 11:14-0500 Body bdmivc418.56 cmJoaquin Aleman MD Work Phone: [phone] [place], [place] 2471603-06-2025 11:14-0500 Body mass index (BMI) [Ratio]26.4 kg/d6ZtsenmwJoaquin Aleman MD Work Phone: [facility]03-06-2025 11:14-0500 Body utszsg58.93 kgJoaquin Aleman MD Work Phone: [phone]09-05-2024 14:13-0400 Body ywtxmw819.6 cmAkevon Schmid PA Work Phone: [phone] SpringfieldKdvjrxiwjp03-40-5079 14:13-0400Body mass index (BMI) [Ratio]26.26 kg/m2Layla JAIME Work Phone: [phone] SpringfieldHefmsndlyn60-59-3696 14:13-0400Body jqeljn04.4 kg Layla JAIME Work Phone: [phone] SpringfieldLicegirzbv57-75-2876 14:13-0400Diastolic blood ujkuxigw84 mm[Hg]Layla JAIME Work Phone: [phone] SpringfieldCzoikwbrqi93-30-5154 14:13-0400Heart rate69 /min Layla JAIME Work Phone: [facility] SpringfieldXldfiybrfy98-67-5230 14:13-0400Respiratory rate16 /minLayla Schmid PA Work Phone: [facility] SpringfieldMchqsugjmd75-23-7679 14:13-5554OiZ1% (BldA) [Mass fraction]96 %Layla JAIME Work Phone: [facility] SpringfieldJahbfxnowi77-83-6402 14:13-0400Systolic blood shvdzqys641 mm[Hg]Layla JAIME Work Phone: [facility] SpringfieldDmuqmohctu89-22-5857 14:14-0400Blood Pressure LocationMichael NILL [phone]-TxdcaHolmes County Joel [facility]06-25-2024 14:14-0400Diastolic blood jatmeprl10 mm[Hg]Pablo NILL [phone]-OdimgHolmes County Joel [facility]omerene [facility] Hospital06-25-2024 14:14-0400Heart rate72 /minMichael NILL [phone]-QvpayAvita Health Systemue06-25-2024 14:14-0400Respiratory rate16 /minMichael NILL [phone]-XakqzAvita Health Systemue06-25-2024 14:14-0400Systolic blood gzraarlm798 mm[Hg]Pablo NILL [phone]-DlaebAvita Health Systemue08-04-2022 12:15-0400Body zbueyd219.56 cmRobert [place] II Other [employer] Other 08-04-2022 12:15-0400Body mass index (BMI) [Ratio] 27.46 kg/x7Qghyrq [place] Other [employer] Other 08-04-2022 12:15-0400Body csjqja51.58 kgRobert [place] Other [employer] Other 05-05-2022 10:15-0400Body ciyqzi766.56 cmRobert [place] Other [employer] Other 05-05-2022 10:15-0400Body mass index (BMI) [Ratio] 27.98 kg/c2Cpfdqd [place] Other [employer] Other 05-05-2022 10:15-0400Body yyutlm73.94 kgRobert [place] Other [employer] Other 04-20-2022 12:45-0400Body .56 cmRobert [place] Other [employer] Other 04-20-2022 12:45-0400Body mass index (BMI) [Ratio] 27.98 kg/e6Wwxakd [place] Other [employer] Other 04-20-2022 12:45-0400Body mwunqd98.94 kgRobert [place] Other [employer] Other 12-30-2021 10:00-0500Body .56 cmRobert Sorin II Other [employer] Other 12-30-2021 10:00-0500Body mass index (BMI) [Ratio] 27.63 kg/j7Jqjhpj [place] Other [employer] Other 12-30-2021 10:00-0500Body tkzido21.03 kgRobert [place] Other [employer] Other Encounters Encounter DateEncounter TypeCare ProviderFacilityStart: 07-21-2025 End: 06-75-9156Qyjfzdwilliam Cifuentes MD Work Phone: [facility] EndocrinologyStart: 07-21-2025 End: 55-85-4974Rmexzwstephen Cifuentes MD Work Phone: [facility] EndocrinologyStart: 07-21-2025 End: 28-13-4192Xllowx outpatient visit 25 minutesKameron Cifuentes MD Work Phone: [facility] EndocrinologyComment on above:Low TSH level (Primary Dx); Rathke's cleft cyst (HCC)Start: 07-21-2025 End: 76-63-9176zcazxmfmynSOPRNJovita Zavala AvailableStart: 06-09-2025 End: 10-81-1104udpafwxjqsUfch AsaadFacility:[facility] Start: 33-34-8345Yfd-patient / Non-visitHaley Morrow MD-[facility] Work Phone: Start: 05-11-2025 End: 24-26-7567Wxwnaueuow OrdersHaley Morrow MD Work Phone: Referring PhysicianComment on above:Low TSH level (Primary Dx)Start: 05-05-2025 End: 79-74-3060lxfrurrsnmGuwjise M Hoy MD Work Phone: [facility] Work Phone: Start: 05-05-2025 End: 18-75-7270Cmjenzo encounter procedureHaley Morrow MD-[facility] Work Phone: Start: 04-19-2025 End: 06-78-9108nfngjireygJSVXQH [facility] Start: 04-01-2025 End: 89-08-3528mefvtjkrlmJahfacp M [facility] Work Phone: Start: 04-01-2025 End: 93-19-4653Phadirov ReferredJoaquin Reyna MD-LAB [facility] Start: 12-10-2024 End: 33-32-3546Tqvakkg encounter procedureJoaquin Aleman MD Work Phone: [facility]-CT Scan [place] Work Phone: Start: 12-10-2024 End: 27-88-5282dhcbtotvolJjvocka M Hoy MD Work Phone: [facility] Work Phone: Start: 11-19-2024 End: 64-64-5903Oufnwkz encounter Nehemiah Aleman MD Work Phone: [facility] Work Phone: Start: 05-21-2024 End: 32-22-3358Taqhpk [facility] Work Phone: [facility] STATE ROUTEStart: 05-21-2024 End: 20-69-5388Zpcuvy flowsheetLayla Binu JAIME Work Phone: [facility] [place] STATE ROUTEStart: 05-21-2024 End: 28-27-6699Nlutwz outpatient visit 25 Jayden Binu JAIME Work Phone: n[facility] [place] STATE ROUTEComment on above: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); Dizziness; Migraine without aura and without status migrainosus, not intractable (CMS/HCC); Memory changeStart: 05-08-2024 End: 16-55-6625blpxyibnwhWXAFAI [facility] Start: 04-22-2024 End: 59-51-9876tzljjfjrraZbdpafc R NILLFacility:CD:[id number]: 03-10-2024 End: 30-42-5779qaqfohrfdnZtealhm HoyFacility: BellevueStart: 03-10-2024 End: 92-99-3617Ijzorrw encounter procedureMichael R NILL [phone]-Dshgb [facility] [place] Start: 10-29-2022 End: 11-70-3211uprnyfyyqbVPPJX SABBAGHFacility:C2Rjzga: 59-50-4210wqdqhclxgzQS JOAQUIN HOYFacility:J6Joywt: 08-24-2022 End: 53-99-7675urbjxdinopRI JOAQUIN HOYFacility:N3Zrgjp: 08-15-2022 End: 35-87-1349cwgvcuvxipNB JOAQUIN HOYFacility:B3Zctdr: 06-25-2022 End: 72-39-6305gagysqllpjFGGYFK RODRIGUEZFacility:E3Kfesy: 06-20-2022 End: 74-54-0330mrrmgxnjnnBW JOAQUIN HOYFacility:D4Sncwb: 06-08-2022 End: 71-73-2265syjnqcwbceRO JOAQUIN HOYFacility:J9Lonhi: 05-30-2022 End: 86-83-3809wsgomdbxczQJ JOAQUIN HOYFacility:E7Utrom: 04-19-2022 End: 11-54-4005dklhsighlgZbumoa [place] Other [employer] Other Start: 14-43-1326Jjkusk outpatient visit 25 minutes Nichelle BRAGGG [facility] OrthopedicsStart: 04-03-2022 End: 18-32-9071xqysunweegSW JOAQUIN HOYFacility:M4Mzluj: 02-05-2022 End: 82-81-8199qwunubjbpwKSEG LACOURFacility:H0Zphjr: 01-29-2022 End: 99-85-2838hhfgiozropDDSRMU CARLISLEFacility:A5Miqgk: 01-18-2022 End: 44-99-8390ripxlsdqeuEwuepq [place] Other [employer] Other Start: 75-56-8893Jznibn outpatient visit 25 minutes Nichelle BRAGGG [facility]icsStart: 01-03-2022 End: 53-61-3053ztvlynexnyNvqzcm [place] Other [employer] Other Start: 80-81-4142Xqojnq outpatient visit 15 minutes Nichelle BRAGGG [facility] OrthopedicsStart: 09-14-2021 End: 43-44-3043xczfouahghNcnhnl [place] Other [employer] Other Start: 80-27-2342Fqdnyk outpatient new 30 minutes Nichelle Bailey IIFPG [facility] Procedures DateProcedureProcedure DetailPerforming ClinicianStart: 19-76-6952Gxqte culture Joaquin Aleman MD Work Phone: Start: 00-82-9067Bnhajzku tomography of abdomen and pelvis with contrastJoaquin Aleman MD Work Phone: Start: 60-87-3436DyyayibvkoqRxvdcin NILL Start: 64-52-0714YeytskakfkplywuddekiYwzshsc NILL Comment on above:with biopsyStart: 01-22-2006 EsophagogastroduodenoscopyMichael NILL Start: 68-89-3710RnbfocwjuqhSldyyju NILL Abdominal hysterectomyMichael NILL Bilateral salpingectomy with oophorectomyMichael NILL History of subtotal thyroidectomyMichael NILL Plan of Treatment DateCare ActivityDetailAuthorStart: 08-11-2025 End: 87-49-0136Qyvtqth encounter fgameirfr71/26/2025 2:00 PM EST Office Visit [facility] [address] [place] [id number] Kameron Cifuentes MD [address] [place] [address] [facility] EndocrinologyStart: 07-21-2025 End: 55-80-8870Dsvjymaduoedg AntibodyThyroglobulin Antibody Lab Routine Low TSH level Expected: 07/21/2025 (Approximate), Expires: 07/21/2026[facility] Work Phone: Comment on above:Expected: 07/21/2025 (Approximate), Expires: 07/21/2026Start: 07-21-2025 End: 98-51-8998Ehoauji peroxidase antibodyThyroid peroxidase antibody Lab Routine Low TSH level Expected: 07/21/2025 (Approximate), Expires: 07/21/2026 [facility] HealthcareComment on above:Expected: 07/21/2025 (Approximate), Expires: 07/21/2026Start: 07-21-2025 End: 93-35-9197Cxtxwwotpon [Units/volume] in Serum or PlasmaTSH Lab Routine Low TSH level Expected: 07/21/2025 (Approximate), Expires: 07/21/2026[facility] Comment on above:Expected: 07/21/2025 (Approximate), Expires: 07/21/2026Start: 07-21-2025 End: 43-14-6104Frwnmeiezfp receptor antibodyThyrotropin receptor antibody Lab Routine Low TSH level Expected: 07/21/2025 (Approximate), Expires: 07/21/2026 [facility] HealthcareComment on above:Expected: 07/21/2025 (Approximate), Expires: 07/21/2026Start: 07-21-2025 End: 73-68-0750Taozlvbyr (T4) free [Mass/volume] in Serum or PlasmaT4, free Lab Routine Low TSH level Expected: 07/21/2025 (Approximate), Expires: 07/21/2026 [facility] HealthcareComment on above:Expected: 07/21/2025 (Approximate), Expires: 07/21/2026Start: 07-21-2025 End: 18-14-1556Jhqortwbadmircim (T3) Free [Mass/volume] in Serum or PlasmaT3, free Lab Routine Low TSH level Expected: 07/21/2025 (Approximate), Expires: 07/21/2026[facility] HealthcareComment on above:Expected: 07/21/2025 (Approximate), Expires: 07/21/2026Start: 07-21-2025 End: 02-63-2321IR Thyroid glandUS thyroid Imaging Routine Low TSH level Expected: 07/21/2025, Expires: 07/21/2026[facility] HealthcareComment on above: Expected: 07/21/2025, Expires: 07/21/2026Start: 07-21-2025 End: 03-61-2184Udmlvcp encounter hablshvoa54/05/2025 1:40 PM EST Office Visit [facility] [address] [place] [address] Kameron Cifuentes MD [address] [place] [address] ArrivedNOMS Montero EndocrinologyComment on above:ArrivedStart: 74-15-7788XlgesjozeHolzer Medical Center – Jacksontart: 18-84-8985Erxehlp referralTrinity Health System [facility] Work Phone: Start: 95-66-2396Jcybv cultureHolzer Medical Center – Jacksontart: 48-95-7073Xugrhrbn identified in Urine by CultureUrine CultureHolzer Medical Center – Jacksontart: 08-12-2024 End: 61-11-3481Wbqwcml encounter vipkzsetw71/27/2024 1:00 PM EST Office Visit [facility] [address] [place] [address] Layla Schmid PA [address] [place] [address] [facility] ROUTEStart: 05-21-2024 End: 51-63-3670Rygnapq encounter toviubeho38/05/2024 2:00 PM EDT Office Visit [facility] [place] [address] [place] [phone] Layla Schmid PA [address] [place] [address] ArrivedNOFIRELANDS REGIONAL MEDICAL C[facility] ROUTEComment on above: ArrivedComprehensive metabolic 2000 panel - Serum or PlasmaSt. John Of God HospitalPatient EducationHemorrhoids Gastritis Omeprazole Know your MedCleveland Clinic [facility] Work Phone: Patient referralTrinity Health System [facility] Work Phone: [facility] Immunizations Immunization DateImmunizationNotesCare ProviderFacilityNEGATED: Highlighted row has not occurred!56-43-0429sozjvotcp virus vaccine, unspecified formulation Pablo VALENCIA [phone]-Csljq General Surgery [facility] Elizabeth HospitalueComment on above: Result Comment: Will consult with primary care physician Payers DatePayer CategoryPayerPolicy [id number]-pay2022Medicaid [id number] 2022Medicare [id number] [id number] [id number] 2.160.8.820422.4368-01-1960 [id number] 2.0.2.98203[id number] 2.0.1.140537.3.57[id number] 2.0.1.481988.3.57[id number] 2.840.1.868482.3.57[id number] 2.0.1.490573.3.57[id number] 2.840.1.665383.3.57[id number] 2.160.1.693393.3.579.[id number] 2.16840.1.300472.3.57[id number] 2.840.1.573731.3.57[id number] 2.16840.1.098128.3.57[id number] 2.840.1.498755.3.57[id number] 2.840.1.524491.3.579.[id number] 2..840.1.654364.3.57[id number] 2..0.1.128910.3.57[id number] 2.16.840.1.68[id number] 2..840.1.654008.3.579.2.531 [id number] 2.840.1.2[id number] 2..840.1.159029.3.579.2.531 Social History DateTypeDetailFacilityStart: 86-46-2279Ecy Assigned At BirthMetroHealth Parma Medical Centertart: 03-10-2024 End: 39-89-0169Mqdtkgn smoking statusEx-smoker (finding)[facility] Hospitaltart: 02-08-2016 End: 12-66-1877Jefrqsf smoking statusNeverHolmes County Joel [facility] History of tobacco useCurrent smokerNOMS HealthcareHistory of tobacco use Cigarette SmokerNOMS HealthcareStart: 04-15-2024 End: 97-90-4365Cbejlcbig beverage intakeLifetime non-drinker (finding)[facility] HealthcareStart: 98-17-2651Nzfgemr of Social functionNOMS HealthcareStart: 82-83-1148Dcr assigned at birthNot on fileNOMS HealthcareStart: 54-19-2654[place] Female (finding)[facility] – Jacksontart: 74-70-5263Qml Assigned At BirthFeSt. Rita's HospitalTobacco smoking status NHIS Tobacco smoking consumption unknownAdena Health System Functional Status RdrdBzykgmrcubWiypejNffjmrue45-19-0521Ryjgktntjl StatusN/AFElyria Memorial Hospitalevue Clinical Notes 09-14-2021 to 07-21-2025 Note Date & JcikYlkoPbvxvltk08-53-0428 History of Present illness Narrative* Kameron Cifuentes [...] SURGERY OOPHORECTOMY THYROID SURGERY documented in this encounterDoctors Hospital of SpringfieldIhvisnwcnb10-18-4943 Evaluation note* Author Haley Morrow St[facility] Of God HospitalAuthoredAudr. dan c. trigg memorial hospitalorlando 2024 1:13pm69 y/o female referred to the GI clinic for evaluation of LLQ and RUQ pain. + lower abdominal pain nausea vomiting and diarrhea for last few months. TSH is 0.274. CBC CMP fecal calprotectin HIV celiac panel were unremarkable CT abdomen/pelvis on 12/10/2024 was unremarkable Will arrange for EGD/colonoscopy. Will refer to endocrinology for evaluation of low TSH [facility] Work Phone: 1(791) 912-793008-04-2025 NoteUT Cardiology - [facility] Subjective Oumar Cunningham is a 70 [...] under the tongue every (more content not included)...[facility] 02-02-2025 Evaluation note* Author Imad Clinton Memorial HospitalAuthoredAugust 2024 1:13pm69 y/o female referred to the GI clinic for evaluation of LLQ and RUQ pain. + lower abdominal pain nausea vomiting and diarrhea for last few months. TSH is 0.274. CBC CMP fecal calprotectin HIV celiac panel were unremarkable CT abdomen/pelvis on 12/10/2024 was unremarkable Will arrange for EGD/colonoscopy. Will refer to endocrinology for evaluation of low TSH [facility] Work Phone: 1(613) 604-731103-27-2025 Radiology [facility] [place] [address] [place] [address] CT Scan Report Signed Patient: Oumar Cunningham MR#: [id number] : 1955 Acct:[id number] Age/Sex: 69 / F ADM Date: 5 Loc: CT Room: Type: [facility] Attending Dr: Haley Morrow MD Copies [...] Chavez Jr., D.OBob12/10/2024 4:37 PM Dictation Location: [facility] Transcribed By: [facility] 12/10/24 1637 Dictated By: Kev Chavez Jr, DO 12/10/24 1634 Signed By: 12/10/[address] [facility]03-06-2025 Evaluation note* Author Haley Morrow [facility] HospitalAuthoredMar 2024 12:35pm69 y/o female referred to the GI clinic for evaluation of LLQ and RUQ pain. + lower abdominal pain nausea vomiting and diarrhea for last few months. -Will check CBC CMP, TSH, ESR, CRP, fecal calprotectin HIV ab, Celiac panel, fecal elastase and stool infectious workup -Will arrange for CT abdomen/pelvis. -Will arrange for EGD/colonoscopy. [facility] Work Phone: 1(184) 327-585508-23-2024 NoteUT Cardiology - [facility] Subjective Oumar Cunningham is a 69 [...] mg SL table (more content not included)... [facility]06-28-2024 NoteGeneral Surgery Office/Clinic Note Chief Complaint consultation [...] Bilateral lo (more content not included)...[facility] CenterComment on above:Result Comment: Electronically Signed By: ERIK SMALLWOOD, Pablo Workman\Date and Time Signed: 03/13/24 10:51 PWA40-00-0486 NotePROCEDURE: CT CSPINE WO CON COMPARISON: None. [...] Electronically authenticated by: YENI RUST Date: 2022-06-25 13:55[facility]10-10-2022 NotePROCEDURE: XR HAND LT MIN 3V [...] Electronically authenticated by: SOHAM HO Date: 2022-06-25 13:49[facility]08-04-2022 Evaluation note* Encounter Date Diagnosis Assessment [...] we will get a lumbar spine x-ray. [employer] Other 05-05-2022 Evaluation note* Encounter Date Diagnosis [...] a viscosupplementation. 6. Follow up 3 months [employer] Other 04-20-2022 Evaluation note* Encounter Date Diagnosis [...] knee compared to a partial knee replacement. [employer] Other 12-30-2021 Evaluation note* Encounter Date Diagnosis [...] this well. 5. 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 Dizziness Dizziness and giddiness Migraine without aura and without status migrainosus, not intractable (CMS/HCC) Memory change Memory loss documented in this encounter [facility] HealthcareEvaluation noteNo assessment information availableGreene Memorial Hospital Work Phone: Evaluation note* Diagnosis Low TSH level- Primary Nonspecific abnormal results of thyroid function study documented in this encounter [facility] Diagnosis Low TSH level- Primary 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 documented in this encounter [facility] HealthcareHistory general Narrative - Reported* Type Description Date Medical History COPD Medical HistoryemphysemaMedical Historymigraine headacheMedical HistoryPanic attacksSurgical Historythyroidectomy-partialSurgical HistoryhysterectomySurgical HistoryoophorectomySurgical Historyeye surgeryHospitalization Historypneumonia Hospitalization Historychest pain04/2021 [employer] Other Hospital Discharge instructions No data available for this section [facility] CenterConsignd [facility] Discharge instructionsAmbulatory Orders* Referral to Endocrinology Time Frame: 05/05/25, Location: None [facility] Work Phone: Hospital Discharge instructions Additional Instructions [...] NOT operate machinery such as power tools, [employer] mowers, snow blowers, sewing machines, etc. for [...] up in the office - Office number [phone]. [facility] Work Phone: Progress note No data available for this section [facility] [place] Reason for referral (narrative)No reason for referral information availableGreene Memorial Hospital Work Phone: Summary Purpose Family History No [...] 11:1 1am Alternating constipation and diarrhea [facility] 2024 11:11am Bloating November 19, 2024 11:1 [...] section and content) DATE CREATED AUTHOR 11/12/2020 [facility] DATE CREATED AUTHOR AUTHOR'S ORGANIZ ATION 11/03/2022 [facility] DATE CREATED AUTHOR AUTHOR'S ORGANIZ ATION 05/01/[address] [facility] DATE CREATED AUTHOR AUTHOR'S ORGANIZ ATION 04/21/2025 [facility] DATE CREATED AUTHOR AUTHOR'S ORGANIZ ATION 06/18/2025 [facility] DATE CREATED AUTHOR AUTHOR'S ORGANIZ ATION 07/23/2025 [facility] EPIC REASON FOR VISIT [...] May 05, 2025 End: May 05, 2025DoKarina Rutledgebaptist medical center eastmyra [facility] ProviderActiveStart: May 05, 2025 End: May 05, 2025Team MemberRelationshipSpecialtyStart DateEnd Date Joaquin Aleman MD PCP - GeneralFamily Medicine02/08/16 Haley Morrow MD [address] [place] [address] ReferringOrstropeoples hospital05/11/25 Team Status: Active Member Role Status Dates Joaquin Aleman MD Primary Care Provider Active Start: June 09, 2025 Nicole Claudio ProviderActiveStart: June 09, 2025 Haley Morrow MDBr[facility] ProviderActiveStart: June 09, 2025 Team MemberRelationshipSpecialtyStart DateEnd Joaquin Harper MD PCP - [facility] Medicine06/03/24Team MemberRelationshipSpecialtyStart DateEnd Date Joaquin Aleman MD PCP - [facility]06/03/24 Goals (unrecognized section and content) Goals may be documented in a n alternate section Source Comments (unrecognize d section and content) In the event this informatio n is protected by the Federal Confidentiality of Alcohol and Drug Abuse Patient Records regulations: The Federal rules restrict any use of the information to criminally investigate or prosecute any alcohol or drug abuse patient.[facility] FOR RECORDS PERTAINING TO PATIENTS WHO ARE [...] BE BASED ON THE PRIMARY CLINICAL RECORDS. [employer] [facility]. provides no warranty or guarantee of the accuracy or completeness of information in this document.
[2025-07-23 13:46] LABS: Free T3 2.76 pg/mL (2.18-3.98); Thyroid Stimulating Hormone 0.207 uIU/mL (0.358-3.740)
[2025-07-25 14:08] LABS: Thyrotropin Receptor Ab, Serum <1.10 IU/L (0.00-1.75)
== END 2025-07-23 12:30 | disposition home or self-care (01) ==
LOC: LAB 12:33
PROVIDERS: PCP Family Medicine; Visit Provider Internal Medicine
DX: R79.89 Other specified abnormal findings of blood chemistry (principal); E78.2 Mixed hyperlipidemia
CPT/HCPCS: 36415; 80061; 80076; 83520; 84439; 84443; 84481; 86376; 86800

== ENCOUNTER 2025-07-29 12:56 | Outpatient (OUT) | payer MEDICARE, MEDICAID, SELFPAY ==
--- OUTSIDE RECORDS SUMMARY | 2025-07-21 13:40 | XMS_ITS | Encounter Summary ---
Author Organization [facility] Address [address] [place] [address] Care Team Providers Care School Transportation Supervisor Name Role Phone Joaquin Aleman MD Primary Care Provider [phone] Reason for Visit * ReasonCommentsPituitary ProblemFollow-up1.5 YRS NEW REF/LAB Encounter Details DateTypeDepartmentCare Team (Latest Contact Info)Uqjvflalyuf62/05/2025 1:40 PM ESTOffice Visit [facility] [address] [place] [address] Kameron Gracia MD [address] [place] [address] Low TSH level (Primary Dx); Rathke's cleft cyst (HCC) Social History Tobacco UseTypesPacks/DayYears UsedDateSmoking Tobacco: FormerCigarettesAlcohol UseStandard Drinks/WeekCommentsNever0 (1 standard drink = 0.6 oz pure alcohol) CommentsUnknownSex and Gender InformationValueDate RecordedSex Assigned at BirthNot on fileLegal NycEqdusi63/15/2023 11:02 PM EDTGender IdentityNot on fileSexual OrientationNot on filedocumented as of this encounter Last Filed Vital Signs Vital SignReadingTime TakenCommentsBlood Vpakuczc509/7611 1:30 PM EST Vvctx045707/21/2025 1:30 PM ESTTemperature--Respiratory Rljj310109/20/2024 1:30 PM ESTOxygen Kmcckbzcqc26%07/21/2025 1:30 PM ESTInhaled Oxygen Concentration-- Zrivvl39.9 kg (152 lb)07/21/2025 1:30 PM DRKPrpvfe261.6 cm (5' 4 )07/21/2025 1:30 PM ESTBody Mass Index26.0907/21/2025 1:30 PM ESTdocumented in this encounter Progress Notes * Kameron Gracia MD - 07/21/2025 1:40 PM EST Sherie Cunningham is a 70 y.o. female No ref. provider found presents with chief complaint of Pituitary Problem and Follow-up (1.5 YRS NEW REF/LAB) HPI: IM : 07/2025 New referral for low TSH 0.24 on 11/2024, from her GI Dr. Morrow during workup of her GI symptoms. Interim History 01/2024 Followup visit no new change, no blurred vision. Interim History 10/2022: Followup visit 10/31/2022 for lab done. All pituitary hormones within normal limits. TSH 0.64, free T4 of 1.01 (0.76-1.46), ACTH 16.7 (7-62), growth hormone within normal limits, FSH 57, LH 21, prolactin 6.4, and IGF within normal limits. All pituitary hormones in good range. 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 There is another left cerebellar meningioma measuring 9 x 13 x 8 mm already seen by neurologist and does not seem concerned about that. She denies blurred vision, double vision. Denies galacturia, no breast secretion. Had hysterectomy and menopause around age 57. Not on any thyroid medication. No steroids and no vision issues. Also, she had MRI back in 2014 and shows at that time pituitary stable, nonenhancing mass along with anterior right pituitary stalk measuring 8 x 5 x 6 mm SUBJECTIVE: MEDICATIONS: Current Outpatient Medications Medication Instructions Aimovig 70 mg, Subcutaneous, Every 28 days albuterol HFA 90 mcg/act inhaler 1 puff, Every 8 hours Calcium Carbonate (CALCIUM-CARB 600 PO) Take by mouth carvedilol (Coreg) 3.125 MG tablet 2 times daily with meals cholecalciferol (VITAMIN D-3) 2,000 Units, Daily cycloSPORINE (Restasis) 0.05 % ophthalmic emulsion 1 drop, 2 times daily ezetimibe (ZETIA) 10 mg, Daily famotidine (PEPCID) 40 mg, Daily hyoscyamine (LEVSIN) 0.125 mg, Every 4 hours PRN lisinopril 5 MG tablet 1 tablet, Daily meclizine (ANTIVERT) 25 mg, 3 times daily PRN pantoprazole (PROTONIX) 40 mg, Daily before breakfast ALLERGIES: Allergies[1] Medical History[2] Surgical History[3] REVIEW OF SYMPTOMS: 14 POINT OF SYSTEM REVIEWED AND NEGATIVE OBJECTIVE: 06/29/2020 12:00 PM 05/21/2024 2:13 PM 07/21/2025 1:30 PM Vitals BMI 26.43 kg/m2 26.26 kg/m2 26.09 kg/m2 BSA (m2) 1.78 m2 1.77 m2 1.76 m2 Systolic 154 140 130 Diastolic 89 90 76 Heart Rate 69 68 SpO2 96 % 98 % Resp 16 16 Height (in) 5' 4 5' 4 5' 4 Weight (lb) 154 153 152 Visit Report Report Report Physical Exam Constitutional: Appearance: Normal appearance. She is normal weight. HENT: Head: Normocephalic and atraumatic. Right Ear: External ear normal. Nose: Nose normal. Mouth/Throat: Pharynx: Oropharynx is clear. Eyes: Extraocular Movements: Extraocular movements intact. Pupils: Pupils are equal, round, and reactive to light. Cardiovascular: Rate and Rhythm: Normal rate and regular rhythm. Pulmonary: Effort: Pulmonary effort is normal. Abdominal: General: Abdomen is flat. Palpations: Abdomen is soft. Musculoskeletal: General: Normal range of motion. Skin: General: Skin is warm. Neurological: General: No focal deficit present. Mental Status: She is alert. Psychiatric: Mood and Affect: Mood normal. Behavior: Behavior normal. ASSESSMENT AND PLAN: Assessment/Plan Diagnoses and all orders for this visit: Low TSH level - Thyroglobulin Antibody; Future - Thyrotropin receptor antibody; Future - Thyroid peroxidase antibody; Future - T3, free; Future - T4, free; Future - TSH; Future - US thyroid; Future TSH 0.24 in November/2024, clinically euthyroid I will repeat TSH free T4 free T3 thyroid antibodies and start antithyroid medication if needed. 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 [1] Allergies Allergen Reactions Coconut (Cocos Nucifera) Onion [2] Past Medical History: Diagnosis Date Backache Benign neoplasm of cerebral meninges (HCC) Benign paroxysmal positional vertigo Cervicalgia COPD (chronic obstructive pulmonary disease) (HCC) Disturbance of skin sensation Dizziness Dizziness consistent with vertigo. She did have episode yesterday of lightheadedness, chest pain and left arm pain which I have instructed her she should follow up with PCP for and if returns to go to ED for evalution. 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 She is following with Dr. Johnson and she is scheduled to see endocrinology Pain in limb Vertigo [3] Past Surgical History: Procedure Laterality Date EYE SURGERY OOPHORECTOMY THYROID SURGERY documented in this encounter Plan of Treatment DateTypeDepartmentCare Team (Latest Contact Info)Dfsgjozegdz52/26/2025 2:00 PM ESTOffice Visit [facility] [address] [place] [address] Kameron Gracia MD [address] [place] [address] NameTypePriorityAssociated DiagnosesOrder ScheduleThyroglobulin AntibodyLab Routine Low TSH level Expected: 07/21/2025 (Approximate), Expires: 07/21/2026Thyrotropin receptor antibodyLabRoutine Low TSH level Expected: 07/21/2025 (Approximate), Expires: 07/21/2026Thyroid peroxidase antibodyLabRoutine Low TSH level Expected: 07/21/2025 (Approximate), Expires: 07/21/2026T3, freeLabRoutine Low TSH level Expected: 07/21/2025 (Approximate), Expires: 07/21/2026T4, freeLabRoutine Low TSH level Expected: 07/21/2025 (Approximate), Expires: 07/21/2026TSHLabRoutine Low TSH level Expected: 07/21/2025 (Approximate), Expires: 07/21/2026US thyroidImagingRoutine Low TSH level Expected: 07/21/2025, Expires: 07/21/2026documented as of this encounter Visit Diagnoses Diagnosis Low TSH level- Primary 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
--- OUTSIDE RECORDS SUMMARY | 2025-07-29 13:00 | XMS_ITS | Patient Health Record ---
Author Organization [facility] [place] Address [address] [place] [address] Care Team Providers Care Forging Dies Final Finisher Name Role Phone Lennox Peterson Primary Care [...] 1 MG/DLNITRITE-NEG - NEGESTERASE (GUZMAN)-NEG - NEG MG/DLCBC AUTO DIFF Reviewed date:11/29/2024 03:22:35 PM Interpretation: Performing Lab: Notes/Report: [facility] ,White Blood Count4.64.0-11.0 10 3/uLRed Blood Count4.224.20-5.40 10 6/uL Rmgxmjwche15.412.0-16.0 g/tQJlnzutgpkd63.136.0-48.0 %Mean Corpuscular Hrszvk19.3 81.0-99.0 fLMean Corpuscular Ucchwgpcxz56.426.7-34.0 pgMean Corpuscular HGB Conc 32.529.9-35.2 g/dLRed Cell Distribution Width12.311.0-15.0 %Platelet Pgfep383 150-450 10 3/uLMean Platelet Yvcazr25.49.5-13.5 fLNeutrophils Percent Auto48.0 43.0-75.0 %Lymphocytes Percent Auto43.120.5-60.0 %Monocytes Percent Auto5.21.7- 12.0 %Eosinophils Percent Auto2.20.9-7.0 %Basophils Percent Auto1.50.2-2.0 % Immature Granulocytes Pct Auto0.00.0-0.5 %Neutrophils Absolute Auto2.21.4-6.5 10 3/uLLymphocytes Absolute Auto2.01.2-3.8 10 3/uLMonocytes Absolute Auto0.20.3-0.8 10 3/uLEosinophils Absolute Auto0.10.0-0.7 10 3/uLBasophils Absolute Auto0.10.0- 0.1 10 3/uLImmature Granulocytes Abs Auto0.000.00-0.03 10 3/uLPerforming Lab:see noteML - [facility] LBCRP Reviewed date:11/29/2024 03:22:35 PM Interpretation: Performing Lab: Notes/Report: [facility] [place] ,C Reactive Protein<0.50<=0.50 mg/dLPerforming Lab:see noteML - [facility] LBPROF 14(COMP METB) Reviewed date:11/29/2024 03:22:35 PM Interpretation: Performing Lab: Notes/Report: [facility] [place] ,Iczemt694771-418 mmol/LPotassium3.63.5-5.1 mmol/YCxjdippb69364-105 mmol/LCarbon Hrwsowk36.621.0-32.0 mmol/LAnion Gap12.7Dfakvap3696-276 mg/dLBlood Urea Nitrogen 12.07.0-18.0 mg/dLCreatinine0.850.55-1.02 mg/dLEstimated GFR ( Iesha>60 >=60 mL/min/1.73m 2Estimated GFR (Non- Keysha>60>=60 mL/min/1.73m 2BUN Creatinine Ratio14.1Bbhcvta5.58.5-10.1 mg/dLBilirubin Total0.40.2-1.0 mg/dL Aspartate Amino Xxiuixvktlw0222-91 U/LAlanine Dvmcxawywvsibijt7224-01 U/L Alkaline Hdoqsjdybsq1926-874 U/LTotal Protein7.56.4-8.2 g/dLAlbumin Level4.13.4- 5.0 g/dLGlobulin3.4Albumin Globulin Ratio1.2Performing Lab:see note - [facility] LBTSH Reviewed date:11/29/2024 03:22:35 PM Interpretation: Performing Lab: Notes/Report: [facility] ,Thyroid Stimulating Hormone0.2740.358-3.740 uIU/mLPerforming Lab:see noteAdena [facility] LBErythrocyte Sedimentation Rate Reviewed date:11/29/2024 03:22:35 PM Interpretation: Performing Lab: Notes/Report: [facility] ,Erythrocyte Sedimentation Rate11<=30 mm/hrPerforming Lab:see note - [facility] LBHIV Ab/p24 Ag with Reflex Reviewed date:11/29/2024 03:22:35 PM Interpretation: Performing Lab: Notes/Report: [facility] ,HIV Ab/p24 Ag ScreenNon ReactiveNon Reactive detected. There is no laboratory evidence of HIV infection. Nurse Gynecology: Eugene Ricketts PhD, Phone: [phone] HIV Negative Performed at: [facility] HIV-1/HIV-2 antibodies and HIV-1 p24 antigen were NOT [address] [place] [phone] Performing Lab:[facility] LBCalprotectin, Fecal Reviewed date:11/30/2024 08:24:19 PM Interpretation: Performing Lab: Notes/Report: [facility] ,Calprotectin, Fecal<50-120 ug/g >120 ug/g Abnormal Repeat as clinically Concentration Interpretation Follow-Up >50 -120 ug/g Borderline Re-evaluate in 4-6 weeks < 5 - 50 ug/g Normal None Nurse Gynecology: Yanique Storey MD, Phone: [phone] [address] [place] [phone] indicated Performed at: [facility] Performing Lab:see noteLC - Laborrp LBCBC AUTO DIFF Reviewed date:02/28/2025 12:34:24 PM Interpretation: Performing Lab: Notes/Report: [facility] [place] ,White Blood Count5.34.0-11.0 10 3/uLRed Blood Count4.104.20-5.40 10 6/uL Rouakqvlty31.112.0-16.0 g/vCCtslkhzwxp64.536.0-48.0 %Mean Corpuscular Sfwxfa62.0 81.0-99.0 fLMean Corpuscular Fmglneulsf70.526.7-34.0 pgMean Corpuscular HGB Conc 33.229.9-35.2 g/dLRed Cell Distribution Width12.311.0-15.0 %Platelet Fhplf408 150-450 10 3/uLMean Platelet Qwuudt18.49.5-13.5 fLNeutrophils Percent Auto47.1 43.0-75.0 %Lymphocytes Percent Auto43.320.5-60.0 %Monocytes Percent Auto6.21.7- 12.0 %Eosinophils Percent Auto2.10.9-7.0 %Basophils Percent Auto1.10.2-2.0 % Immature Granulocytes Pct Auto0.20.0-0.5 %Neutrophils Absolute Auto2.51.4-6.5 10 3/uLLymphocytes Absolute Auto2.31.2-3.8 10 3/uLMonocytes Absolute Auto0.30.3-0.8 10 3/uLEosinophils Absolute Auto0.10.0-0.7 10 3/uLBasophils Absolute Auto0.10.0- 0.1 10 3/uLImmature Granulocytes Abs Auto0.010.00-0.03 10 3/uLPerforming Lab:see noteML - [facility] LBGLYCOHEMOGLOBIN A1C Reviewed date:02/28/2025 12:34:24 PM Interpretation: Performing Lab: Notes/Report: [facility] [place] ,Glycohemoglobin A1C5.74.5-6.2 % > 7.0 ADA RECOMMENDED LIMIT 4.0 - 6.0 ACTION SUGGESTED ADA THERAPEUTIC TARGET < 7.0 Estimated Average Ejymkxt005Cjmpjhsimy Lab:see noteML - [facility] LB UA RANDOM W or MICROSCOPIC Reviewed date:04/01/2025 06:08:51 PM Interpretation: Performing Lab: Notes/Report: [facility] [place] ,Color UrineLT. YELLOWYELLOWClarity UrineCLEARCLEARSpecific [place] Urine1.025 1.005-1.025pH Urine6.05.0-9.0Protein UrineNEGATIVENEG/TRACE mg/dLGlucose Urine UANEGATIVENEGATIVE mg/dLBilirubin UrineNEGATIVENEGATIVEKetones UrineNEGATIVE NEGATIVE mg/dLBlood UrineSMALLNEGATIVENitrite UrineNEGATIVENEGATIVEUrobilinogen Urine0.20.2-1.0 EU/dLLeukocyte Esterase UrineNEGATIVENEGATIVEWBC UrineNONE SEEN NONE SEEN #/HPFRBC Urine2-50-2 #/HPFBacteria UrineTRACENONE SEEN #/HPFMucus UrineNONE SEENNONE SEENSquamous Epithelial Cell UrineFEWNONE/RARE #/LPFCrystals Seen?None SeenNone Seen #/HPFCast Seen?NONE SEENNONE SEEN #/LPFUrine Culture IndicatedALREADY ORDEREDPerforming Lab:see noteML - [facility] LB Urine Culture - FR Reviewed date:04/05/2025 07:29:08 PM Interpretation: Performing Lab: Notes/Report: [facility] ,[facility] [place] For Report No Growth 2 Days Urine Culture - [facility] Urine Culture - [facility] No Growth 2 Days Urine Culture - [facility]rine [facility] - [facility] No Growth 2 Days Urine Culture - [facility] Urine Culture - [id number] [place] [address] No Growth 2 Days Urine Culture - [facility] Performing Lab:see noteML - [facility] LBMR lumbar spine wo con Reviewed date:04/21/2025 12:43:15 PM Interpretation: Performing Lab: Notes/Report: Source Facility: [facility] [place]-[address] [place] [address] [place] [address] Magnetic Resonance Report Signed Patient: SHERIE CUNNINGHAM MR#: [id number] : 1955 Acct:[id number] Age/Sex: 70 / F ADM Date: 04/20/25 Loc: MRI Attending Dr: Greg Peterson M.D. Ordering Physician: Greg Peterson M.D. Date of Service: 04/20/25 Procedure(s): MR lumbar spine wo con Accession Number(s): [id number] cc: Greg Peterson M.D. [place] [address] Patient Name: SHERIE CUNNINGHAM MRN: [id number] date: 1955 Sex: F Assigned Patient Location: MRI Current Patient Location: MRI Accession/Order Number: [id number] Exam Date: 04/20/2025 22:52 Report Date: 04/20/2025 [...] foraminal narrowing. L3-4: Broad-based disc bulge with bsjd-yy-efhmkkqi facet arthropathy. Mild neural foraminal narrowing. Canal is patent. L4-5: Anterolisthesis with uncovering of the posterior disc due to facet arthropathy. Mild broad base disc bulge. Moderate to severe facet arthropathy. Uohv-ou-rgfutcdc foraminal narrowing. Canal is patent. L5-S1: Circumferential disc bulge with zxdr-we-rokbsmnb facet arthropathy. Mild to moderate right and minimal left neural foramina narrowing. Canal is patent. MR/MR lumbar spine wo con Impression: Overall mild multilevel degenerative change without high-grade canal or neural foraminal narrowing. Impression dictated by: Allan Nance M.D. 04/20/2025 10:57 PM Dictation Location: [place] [address] Electronically authenticated by: [id number] Y Date: 04/20/2025 22:57 Dictated By: Allan Nance M.D. Signed By: 04/20/252299 DD/ 56 TD/TT: Litigation Paralegal:FREE T4 Reviewed date:07/25/2025 04:41:42 PM Interpretation: Performing Lab: Notes/Report: [facility] [place] ,Free T41.000.76-1.46 ng/dLPerforming Lab:see noteML - [facility] LB THYROID ANTIBODIES Reviewed date:07/26/2025 07:11:20 PM Interpretation: Performing Lab: Notes/Report: [facility] ,Thyroid Peroxidase (TPO) Ab90-34 IU/mLThyroglobulin Antibody<1.00.0-0.9 IU/mL It should be noted that the presence of thyroglobulin Methodology [address] [place], [place] [phone] to 4 IU/mL. disease or autoimmunity will have positive TgAb levels up Nurse Gynecology: Eugene Ricketts PhD, Phone: [phone] four percent of individuals without evidence of thyroid Thyroglobulin Antibody measured by Joana Christel at very low levels. The assay cook helper dessert has found that antibodies may not be pathogenic nor diagnostic, especially Performed at: - [facility] Performing Lab:[facility] LBThyrotropin Receptor Ab, Serum Reviewed date:07/25/2025 04:41:42 PM Interpretation: Performing Lab: Notes/Report: [facility] ,Thyrotropin Receptor Ab, Serum<1.100.00-1.75 IU/L Performed at: [facility] [address] [id number] Nurse Gynecology: Yanique Storey MD, Phone: [phone] Performing Lab:see note - [facility] LBTSH Reviewed date:07/25/2025 04:41:42 PM Interpretation: Performing Lab: Notes/Report: [facility] [place] ,Thyroid Stimulating Hormone0.2070.358-3.740 uIU/mLPerforming Lab:see noteML - [facility] LBLIVER PROFILE Reviewed date:07/25/2025 04:41:42 PM Interpretation: Performing Lab: Notes/Report: [facility] [place] ,Bilirubin Total0.50.2-1.0 mg/dLBilirubin Direct0.10.0-0.2 mg/dLAspartate Amino Cdonskgduvf3199-83 U/LAlanine Woggzmwkwkutnwmp6351-91 U/LAlkaline Yeccwadhxzx93 46-116 U/LTotal Protein7.86.4-8.2 g/dLAlbumin Level4.43.4-5.0 g/dLGlobulin3.4 Albumin Globulin Ratio1.3Performing Lab:see noteML - [facility] LB LIPID PROFILE Reviewed date:07/25/2025 04:41:42 PM Interpretation: Performing Lab: Notes/Report: [facility] [place] ,Apxkwvnsvjaph233<=150 mg/yMKhjutvpsutb849<=200 mg/dLHDL Vealifwtyly6373-70 mg/dL <40 mg/dl - HIGH CARDIOVASCULAR RISK > or =60 mg/dl - LOW CARDIOVASCULAR RISK LDL Cholesterol Dqhzoxqjzp700.0 <100 mg/dl OPTIMAL 100-129 mg/dl NEAR OR ABOVE OPTIMAL 130-159 mg/dl BORDERLINE HIGH 160-189 mg/dl HIGH >190 mg/dl VERY HIGH VLDL JOWDJSDULQE63.0Chol HDL Ratio2.8 4.4 - 7.1 AVERAGE RISK 3.3 - 4.4 LOW RISK >11.0 HIGH RISK 7.1 - 11.0 MODERATE RISK Performing Lab:see noteML - [facility] LBFREE T3 Reviewed date:07/25/2025 04:41:42 PM Interpretation: Performing Lab: Notes/Report: [facility] [place] ,Free T32.762.18-3.98 pg/mLPerforming Lab:see noteML - [facility] LB XR lumbar spine 2-3V Reviewed date:04/06/2025 04:09:41 PM Interpretation: Performing Lab: Notes/Report: Source Facility: [facility]-[address] [place] [address] [place] [address] XRay Report Signed Patient: SHERIE CUNNINGHAM MR#: [id number] : 1955 Acct:[id number] Age/Sex: 69 / F ADM Date: 04/06/25 Loc: RAD Attending Dr: Greg Peterson M.D. Ordering Physician: Greg Peterson M.D. Date of Service: 04/06/25 Procedure(s): XR lumbar spine 2-3V Accession Number(s): [id number] cc: Greg Peterson M.D. [place] [address] Patient Name: SHERIE CUNNINGHAM MRN: [id number] date: 1955 Sex: F Assigned Patient Location: [facility] Current Patient Location: [facility] Accession/Order Number: [id number] Exam Date: 04/06/2025 10:44 Report Date: 04/06/2025 [...] Caal M.D. 04/06/2025 10:48 AM Dictation Location: [place] [address] Electronically authenticated by: [id number] Y Date: 04/06/2025 10:48 Dictated By: Cedric Caal D.O. Signed By: 04/06/25 1051 DD/ 1048 TD/TT: Litigation Paralegal:MM tomosynthesis screening BI Reviewed date:02/28/2025 12:34:24 PM Interpretation: Performing Lab: Notes/Report: Source Facility: [place] [address] Mammography Report Signed Patient: SHERIE CUNNINGHAM MR#: [id number] : 1955 Acct:[id number] Age/Sex: 69 / F ADM Date: 02/26/25 Loc: MAMMO Attending Dr: Greg Peterson M.D. Ordering Physician: Greg Peterson M.D. Results: Date of Service: 02/26/25 Follow Up: Procedure(s): MM tomosynthesis screening BI Accession Number(s): [id number] cc: Greg Peterson M.D. Patient Name: SHERIE CUNNINGHAM MR#: [id number] : 1955 Exam Date: 02/26/2025 Ordering Doctor: [...] at age 82. LOCATION: [facility] BREAST COMPOSITION: The breasts are heterogeneously dense,which [...] Signed By: 02/26/25 1403 DD/ 1402 TD/TT: Litigation Paralegal:TSH Reviewed date:02/28/2025 12:34:24 PM Interpretation: Performing Lab: Notes/Report: [facility] ,Thyroid Stimulating Hormone0.2240.358-3.740 uIU/mLPerforming Lab:see noteML - [facility] LBT4 Reviewed date:02/28/2025 12:34:24 PM Interpretation: Performing Lab: Notes/Report: [facility] [place] ,T4 Thyroxine9.004.80-13.90 ug/dLPerforming Lab:see noteML - [facility] LBPROF 14(COMP METB) Reviewed date:02/28/2025 12:34:24 PM Interpretation: Performing Lab: Notes/Report: [facility] [place] ,Jpiokq350616-301 mmol/LPotassium3.83.5-5.1 mmol/XBwacrfib39545-284 mmol/LCarbon Romgldd14.221.0-32.0 mmol/LAnion Gap13.6Cvgesgc4877-048 mg/dLBlood Urea Nitrogen 13.07.0-18.0 mg/dLCreatinine0.650.55-1.02 mg/dLEstimated GFR ( Iesha>60 >=60 mL/min/1.73m 2Estimated GFR (Non- Keysha>60>=60 mL/min/1.73m 2BUN Creatinine Ratio20.2Qadqmoz9.38.5-10.1 mg/dLBilirubin Total0.40.2-1.0 mg/dL Aspartate Amino Bhzokaydhuc2221-26 U/LAlanine Zpwumerdreqxjkfs4913-20 U/L Alkaline Eavvfxqiebl7652-459 U/LTotal Protein7.26.4-8.2 g/dLAlbumin Level3.93.4- 5.0 g/dLGlobulin3.3Albumin Globulin Ratio1.2Performing Lab:see noteML - [facility] LBLIPID PROFILE Reviewed date:02/28/2025 12:34:24 PM Interpretation: Performing Lab: Notes/Report: [facility] [place] ,Yfhozxdhcuxbn13<=150 mg/gVIsdddquirdm592<=200 mg/dLHDL Pdphpbrmoyt0340-41 mg/dL > or =60 mg/dl - LOW CARDIOVASCULAR RISK <40 mg/dl - HIGH CARDIOVASCULAR RISK LDL Cholesterol Wazinlmvgv736.0 <100 mg/dl OPTIMAL 130-159 mg/dl BORDERLINE HIGH 160-189 mg/dl HIGH 100-129 mg/dl NEAR OR ABOVE OPTIMAL >190 mg/dl VERY HIGH VLDL TSDNDNGVQSL36.0Chol HDL Ratio3.1 7.1 - 11.0 MODERATE RISK >11.0 HIGH RISK 3.3 - 4.4 LOW RISK 4.4 - 7.1 AVERAGE RISK Performing Lab:see noteML - [facility] LBIRON Reviewed date:02/28/2025 12:34:24 PM Interpretation: Performing Lab: Notes/Report: [facility] ,Iron65.050.0-170.0 ug/dLPerforming Lab:see noteML - [facility] FREE T3 Reviewed date:02/28/2025 12:34:24 PM Interpretation: Performing Lab: Notes/Report: [facility] ,Free T33.192.18-3.98 pg/mLPerforming Lab:see noteML - [facility] Celiac Disease Comprehensive Reviewed date:11/30/2024 08:24:19 PM Interpretation: Performing Lab: Notes/Report: [facility] ,Deamidated Gliadin Abs, DwW27-56 units Weak Positive 20 - 30 Negative 0 - 19 Moderate to Strong Positive >30 Deamidated Gliadin Abs, YbJ81-74 units Weak Positive 20 - 30 Negative 0 - 19 Moderate to Strong Positive >30 t-Transglutaminase (tTG) IgA<20-3 U/mL Weak Positive 4 - 10 ated that endomysial IgA antibodies have over 99% Positive >10 as the endomysial antigen. Studies have demonstr- Negative 0 - 3 Tissue Transglutaminase (tTG) has been identified specificity for gluten sensitive enteropathy. t-Transglutaminase (tTG) IgG30-5 U/mL Negative 0 - 5 Positive >9 Weak Positive 6 - 9 Endomysial Antibody IgANegativeNegativeImmunoglobulin A, Qn, Tkfpe33230-639 mg/dL Performed at: [facility] Nurse Gynecology: Eugene Ricketts PhD, Phone: [phone] [address] [place], [place] [phone] Performing Lab:see noteLC - [facility] LB Reason For Referral No Information Medications Medication SIG (Take, Route, Frequency, Duration) Notes Start Date End Date Status Melatonin PRNActivePepcid 40 MG1 tablet Orally bid; Duration: 30 days4Active Sucralfate 1 GM1 tablet on an empty stomach Orally qid; Duration: 10 days 4ActiveVentolin HFA 108 (90 Base) MCG/ACT2 puff as needed Inhalation every 4 hrsPRNActiveAlbuterol Sulfate (2.5 MG/3ML) 0.083%3 mL as needed Inhalation every 6 hrsPRNActiveAspirin 81 81 MG1 tablet Orally Once a dayPRN ActiveAmoxicillin-Pot Clavulanate 875-125 MG1 tablet Orally every 12 hrs; Duration: 10 5ActiveEzetimibe 10 MG1 tablet Orally Once a dayActive Pravastatin Sodium 10 MG2 tablets Orally Once a day; Duration: 30 04/20/2025 ActiveCholecalciferol 50 MCG (2000 UT)1 capsule Orally Once a day; Duration: 04/05/2025tiveTriamcinolone Acetonide 0.1 %1 application do not rinse [...] alcohol in the p ast year? No Tkvdav3YzggytoxjmfuslFykxwrhgUDFNS-L (Standard) Question Answer Notes Did you have a drink containing alcohol in the p ast year? No Yjbpwn8KkxsqbgfmohdqzPozocckr Problems Problem Type SNOMED Code ICD Code Onset Dates Problem Status W/U Status Risk Notes Problem Essential hypertension (38488785 ) Essential (primary) hypertension (I10) ActiveconfirmedProblemDisorder of pituitary gland (721717826)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)ActiveconfirmedProblemAngina pectoris with documented spasm (53135901)Angina pectoris with documented spasm (I20.1)Activeconfirmed ProblemFibromyalgia (207013743)Fibromyalgia (M79.7)ActiveconfirmedProblemCOPD - Chronic obstructive pulmonary disease (76024181)COPD (chronic obstructive pulmonary disease) (J44.9)ActiveconfirmedProblemGastroesophageal reflux disease (924291661)GERD (gastroesophageal reflux disease) (K21.9)ActiveconfirmedProblem Dyslipidemia (335329146)Dyslipidemia (E78.5)ActiveconfirmedProblemAnxiety (72473261)Anxiety (F41.9)ActiveconfirmedProblemEssential hypertension (23089081) Benign essential HTN (I10)ActiveconfirmedProblemGastroesophageal reflux disease (134463935)GERD without esophagitis (K21.9)ActiveconfirmedProblemLumbar radiculopathy (179665795)Lumbar radiculopathy (M54.16)ActiveconfirmedProblem Gastritis (4694448)Gastritis (K29.70)ActiveconfirmedProblemNarcolepsy (73995592) Narcolepsy (G47.419)ActiveconfirmedProblemBenign neoplasm of cerebral meninges (63366349)Meningioma (D32.9)ActiveconfirmedProblemFibromyalgia (253938913) Fibromyalgia (M79.7)ActiveconfirmedProblemStreptococcal sore throat (disorder) (97233751)Strep pharyngitis (J02.0)ActiveconfirmedProblemRight upper quadrant pain (918570278)Right upper quadrant abdominal pain (R10.11)Activeconfirmed ProblemNon-infective enteritis and colitis (303096141)Acute colitis (K52.9) ActiveconfirmedProblemIrritable bowel (60810736)Irritable bowel (K58.9)Active confirmedProblemChronic obstructive pulmonary disease (75522280)Acute chronic obstructive pulmonary disease with respiratory distress (J44.9)Activeconfirmed ProblemPrinzmetal angina (39681071)Angina pectoris, variant (I20.1)Active confirmedProblemLeft lower quadrant pain (137843888)Left lower quadrant abdominal pain (R10.32)ActiveconfirmedProblemGastroesophageal reflux disease with esophagitis (disorder) (144800746)Gastro-esophageal reflux disease with esophagitis, without bleeding (K21.00)Activeconfirmed Vital Signs Temperature 98.9 degrees Fahrenheit 08/07/2024 Blood pressure otokiduzw38 mm Hg04/01/20258305Exjjmp80 in04/01/2025lood pressure tbamfrmz374 mm Hg04/01/20258930Khmtfc290.2 lbs03/22/2025BMI27.14 kg/m203/22/2025 Encounters Encounter Location Date Provider Diagnosis [place] [address] [place] [address] 04/06/2025 [facility] [place] [address] 04/07/2025Doug HoyGastritis K29.70[facility] [place] [address]/01/2025Doug [facility] [address] [place] [address]/02/2025Doug [facility] [place] [address]/08/2025Doug [facility] [place] [address] 06/02/2025Doug [facility] [place] [address]/26/2025Doug HoyCOPD (chronic obstructive pulmonary disease) J44.9[facility] [place] [address] 03/11/2025Doug [facility] [place] [address] [place] [place] [address]/Doug HoyFrequency R35.0[facility] [facility] [place] [address]/Doug HoyBVH [facility] [place] [place] [address]/ Lennox HoyLumbar radiculopathy M54.16[facility] [facility] [place] [address]/[facility] [address] [facility] [place] [address]/[facility] [facility] [place] [address]/oug Hoy Acute bronchitis, unspecified organism J20.9 and COPD (chronic obstructive pulmonary disease) J44.9B[facility] [facility] [place] [address]/07/2025Doug HoyBenign essential HTN U85JlfpzblScl [facility] [facility] [place] [address]/Doug Hoy Frequency of urination R35.0[facility] [facility] [place] [address]/Doug HoyCOPD (chronic obstructive pulmonary disease) J44.9 ; Fibromyalgia M79.7 ; Benign essential HTN I10 and Meningioma D32.9BAudrey [place] [address] [place] [address] 03/22/2025Doug HoyAngina pectoris, variant I20.1 and Lumbar radiculopathy M54.16 Assessments Encounter Date Diagnosis (ICD Code) Assessment Notes Treatment Notes Treatment Clinical Notes Section Notes 08/07/2024 Acute bronchitis, unspecified or ganism (ICD-10 - J20.9) Rest and drink more liquids, especially water. You may use a humidifier or vaporizer to help keep the drainage moist. Nnhg-ugi-szahsux Nasal Saline may help the stuffy and runny nose. Use Ibuprofen and or Tylenol as needed for fever, chills, body aches or pain. Children 5 years old should not be given ogqz-ezi-kckpefm cough and cold medications such as guaifenesin and dextromethorphan. If you're over age 5, you may try wzug-llf-vhcjjas cold medications such as guaifenesin and dextromethorphan, [...] go to the emergency room or call [id number] (chronic obstructive pulmonary disease) (ICD-10 - J44.9)02/05/2025OPD (chronic obstructive pulmonary disease) (ICD-10 - J44.9) 02/05/2025Fibromyalgia (ICD-10 - M79.7)03/22/2025ngina pectoris, variant (ICD- 10 - I20.1)03/22/2025Lumbar radiculopathy (ICD-10 - M54.16)tsfuasvimh51/11/2025 Benign essential HTN (ICD-10 - I10)04/01/2025Frequency of [...] IRON, TOTAL 02/05/2025 LIPID PANEL (CHOL/TRIG/HDL/LDL) 10/09/19 LIPID PANEL (CHOL/TRIG/HDL/LDL) 02/06/20 25 CBC WITH [...] End Date [place]IC[place] [address] [place] [address] [id number] Diego Cunninghamelf - patient is the netxhwx26 2022[address]ID [address] INS [address] [facility] [place] [phone] Marisa StefanoRhondaelf - patient is the zxfpnqw28 2022 Medications Administered Medication Instructions Date of Administration Dosage Notes Ketorolac Tromethamine mgOrphenadrine Nzobtno50 mgTriamcinolone 40 mg/ml 20 mg Medical (General) [...] G45.9 Vertigo R42 Surgical History Surgery Date(Month/Year) Partial Hysterctomy 1989 Fatty Tumor taken off Thyroid EGD& Colonoscopy 2018 Removal of Both ovaries and cyst 2018 EGD & colonoscopy 04-22-2024 EGD/Colonoscopy 06/09/2025 Hospitalization History Reason Date(Month/Year) Chest Pains 2020
--- OUTSIDE RECORDS SUMMARY | 2025-07-29 13:00 | XMS_ITS | Encounter Summary ---
Author Organization [facility] Address [address] [place] [address] Care Team Providers Care Die Cast Technician Name Role Phone Joaquin Aleman MD Primary Care Provider [phone] Encounter Details DateTypeDepartmentCare Team (Latest Contact Info)Xzrkfrficfo05/05/2025amboo flowsheet [facility] [address] [place] [address] Kamreon Gracia MD [address] [place] [address] Social History Tobacco UseTypesPacks/DayYears UsedDateSmoking Tobacco: FormerCigarettesAlcohol UseStandard Drinks/WeekCommentsNever0 (1 standard drink = 0.6 oz pure alcohol) CommentsUnknownSex and Gender InformationValueDate RecordedSex Assigned at BirthNot on fileLegal MuiIcqiou75/15/2023 11:02 PM EDTGender IdentityNot on fileSexual OrientationNot on filedocumented as of this encounter Plan of Treatment DateTypeDepartmentCare Team (Latest Contact Info)Krnktqypfzl80/26/2025 2:00 PM ESTOffice Visit [facility] [address] [place] [address] Kameron Gracia MD [address] [place] [address] documented as of this encounter Visit Diagnoses Not on filedocumented in this encounter Care Teams Team MemberRelationshipSpecialtyStart DateEnd Date Joaquin Aleman MD PCP - GeneralFamily Medicine06/03/24documented as of this encounter
--- OUTSIDE RECORDS SUMMARY | 2025-07-29 13:00 | XMS_ITS | Clinical Summary ---
Author Organization [facility] Address [address] [place] [address] Care Team Providers Care Oxygen Therapy Teacher Name Role Phone Joaquin Aleman MD Primary Care Provider [phone] Allergies Active AllergyReactionsCriticalityNoted DateCommentsCoconut (Cocos Nucifera) 04/15/20246674Njnar72/31/2024 Medications MedicationSigDispense QuantityRefillsLast FilledStart DateEnd DateStatus cholecalciferol [...] by mouth DailyActive Active Problems ProblemNoted DateDiagnosed UaimIaxqlzos90/31/2024 Overview (04/15/2024): Headaches made up of migraines [...] unchanged from prior study, left cerebellar meningioma 6y07x2za. She is following with endocrinology and sees them next month. 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 Keolrxesj84/31/2024 Overview (04/15/2024): history of dizziness consistent with vertigo. She is having some increase in symptoms that occur inepisodes and described as spinning sensation and sometimes lightheadedness sensation that can occurregardless of position change. She is apprehensive about getting carotid ultrasound and TCD due to cost. Pituitary mass04/15/2024Memory nrpdyx5804/15/2024 Overview (04/15/2024): The patient states that she is having short term memory issues. She states that she is not sleepingwell and is under stress which could likely be contributing. MOCA 12/31/2022 was 26/30. Memory is stable. Encounters DateTypeDepartmentCare XudvXeooeitpybb78/05/2025 1:40 PM ESTOffice Visit [facility] [address] [place] [address] Kameron Gracia MD Low TSH level (Primary Dx); Rathke's cleft cyst (HCC)07/21/2025amboo flowsheet [facility] [address] [place] [address] Kameron Gracia MD from Last 3 Months Family History Medical HistoryRelationNameCommentsCancerFatherHeart diseaseFatherLung cancer FatherCancerMotherRelationNameStatusCommentsFatherAliveMotherDeceased Social History Tobacco UseTypesPacks/DayYears UsedDateSmoking Tobacco: FormerCigarettes Tobacco Cessation:Counseling Given: Not Answered Alcohol UseStandard Drinks/WeekCommentsNever0 (1 standard drink = 0.6 oz pure alcohol)CommentsUnknownSex and Gender InformationValueDate RecordedSex Assigned at BirthNot on fileLegal AmjXetcrs18/15/2023 11:02 PM EDTGender IdentityNot on fileSexual OrientationNot on file Last Filed Vital Signs Vital SignReadingTime TakenCommentsBlood Ephzykkw046/7607/21/2025 1:30 PM EST Qbxbc527707/21/2025 1:30 PM ESTTemperature--Respiratory Wakb907509/20/2024 1:30 PM ESTOxygen Akawqikaxn89%07/21/2025 1:30 PM ESTInhaled Oxygen Concentration-- Onieem34.9 kg (152 lb)07/21/2025 1:30 PM XMFQyhzmp589.6 cm (5' 4 )07/21/2025 1:30 PM ESTBody Mass Index26.0907/21/2025 1:30 PM EST Plan of Treatment DateTypeDepartmentCare Team (Latest Contact Info)Uaizvayixub07/26/2025 2:00 PM ESTOffice Visit [facility] [address] [place] [address] Kameron Gracia MD [address] [place] [address] Insurance Care Teams Team MemberRelationshipSpecialtyStart DateEnd Joaquin Aleman MD PCP - GeneralFamily Medicine06/03/24
--- OUTSIDE RECORDS SUMMARY | 2025-07-29 13:00 | XMS_ITS | Encounter Summary ---
Author Organization [facility] Address [address] [place] [address] Care Team Providers Care Aquatic Director Name Role Phone Joaquin Aleman MD Primary Care Provider [phone] Encounter Details DateTypeDepartmentCare Team (Latest Contact Info)Qtjsnswwezo96/12/2025Telephone [facility] [address] [place] [address] Michelle Zendejas MA Social History Tobacco UseTypesPacks/DayYears UsedDateSmoking Tobacco: FormerCigarettesPassive Smoke Exposure: CurrentSmokeless Tobacco: NeverAlcohol UseStandard Drinks/Week CommentsNot Currently0 (1 standard drink = 0.6 oz pure alcohol)[place] Safety & EnvironmentAnswerDate RecordedFear of Current or Ex-PartnerNot on file11/07/2023 Emotionally AbusedNot on file4Physically AbusedNot on file11/07/2023 Sexually AbusedNot on file11/07/2023hysically or Sexually AbusedNot on file 11/07/2023CommentsUnknownSex and Gender InformationValueDate RecordedSex Assigned at GhtyvYwlogi68/01/2025 1:40 PM EDTLegal CiwVhijmg01/29/2022 10:20 PM EDTGender VhlgxinxMdysli62/01/2025 1:40 PM EDTSexual OrientationHeterosexual or Vjaxjwbk88/01/2025 1:40 PM EDTdocumented as of this encounter Miscellaneous Notes * Telephone Encounter - Michelle Zendejas MA - 07/28/2025 3:38 PM EST MD Michelle Haile MA Has she been taking the pravastatin 10 mg daily? Her blood testing shows that the cholesterol is still elevated about the same as it was before. If she is taking the 10 mg daily then increase it to 20 mg daily. We will need repeat blood testing [Lipid and liver panel] in 2 months. LVM for patient to call in reference to her lab results. documented in this encounter Plan of Treatment Not on file documented as of this encounter Visit Diagnoses Not on filedocumented in this encounter Care Teams Team MemberRelationshipSpecialtyStart DateEnd Joaquin Aleman MD [address] [facility] [place] [address] PCP - Rhmpssp83/12/22documented as of this encounter
--- OUTSIDE RECORDS SUMMARY | 2025-07-29 13:00 | XMS_ITS | Clinical Summary ---
Author Organization [facility] Address [address] [place] [address] Care Team Providers Care Cell Changer Name Role Phone Joaquin Aleman MD Primary Care Provider [phone] Haley Morrow MD Unavailable Encounters DateTypeDepartmentCare FehoJpwmaxmhkrg40/26/2025Transcribe Orders Referring Physician [address] [place] [phone] Haley Morrow MD Low TSH level (Primary Dx)from Last 3 Months Social History Tobacco UseTypesPacks/DayYears UsedDateSmoking Tobacco: Never Assessed CommentsUnknownSex and Gender InformationValueDate RecordedSex Assigned at Not on fileLegal SyiPoxuzf79/25/2016 9:16 AM EDTGender IdentityNot on fileSexual OrientationNot on file Plan of Treatment Not on file Insurance Care Teams Team MemberRelationshipSpecialtyStart DateEnd Date Joaquin Aleman MD [facility] - [facility]02/08/16 Haley Morrow MD [address] [place] [address] ReferringGastroenterology05/11/25
--- OUTSIDE RECORDS SUMMARY | 2025-07-29 13:00 | XMS_ITS | Clinical Summary ---
Author Organization [facility] Address [address] [place] [address] Care Team Providers Care Technical Architect Name Role Phone Joaquin Aleman MD Primary Care Provider [phone] Allergies Active AllergyReactionsCriticalityNoted JgrmOdydndibHscyjxapbkGxtoaltz62/01/2024 Vpkmays78/12/9529Ggstz29/12/2022 Medications MedicationSigDispense QuantityRefillsLast FilledStart DateEnd DateStatus albuterol 90 mcg/actuation inhaler INHALE 2 PUFFS BY MOUTH 4 TIMES A DAYActive nitroglycerin (Nitrostat) 0.3 mg SL tablet Indications:Prinzmetal's anginaPlace 1 tablet (0.3 mg) under the tongue every 5 (five) minutes if needed for chest pain. 100 tablet 3Active pantoprazole (ProtoNix) 40 mg EC tablet Take [...] DateDiagnosed DateBMI 29.0-29.9,adult05/06/2024yslipidemia 05/06/2024History of transient ischemic qgjzzv6105/06/2024Lumbar radiculopathy 05/06/20247056Lsqhbztdms93/21/2024Ulcerative omntdsq7905/06/20244584Pvhamqtov64/31/2024 Overview (05/06/2024): history of dizziness consistent with vertigo. She is having some increase in symptoms that occur inepisodes and described as spinning sensation and sometimes lightheadedness sensation that can occurregardless of position change. She is apprehensive about getting carotid ultrasound and TCD due to cost. Memory emrjxi6104/15/2024 Overview (05/06/2024): The patient states that she is having short term memory issues. She states that she is not sleepingwell and is under stress which could likely be contributing. MOCA 12/31/2022 was 26/30. Memory is stable. Rvngvwkp46/31/2024 Overview (05/06/2024): Headaches made up of migraines [...] unchanged from prior study, left cerebellar meningioma 0l37u0ga. She is following with endocrinology and sees them next month. 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 Pituitary mass3839Eehnfwm21/12/2022hest pain08/27/2022hronic obstructive lung rsfntqw0008/27/20223050Ogxatav49/12/6345Vwhqlwqcgw48/12/2022Palpitations 08/27/2022rimary fibromyalgia mnkycgeu20/12/4345Ywzvqjkvpwgoc97/12/2022 Hypertensive yaxkgiiv53/17/2018 Assessment & Plan (10/17/2023 12:49 PM EST): [...] in 3 months to re-evaluate Encounters DateTypeDepartmentCare CqywDhrdauyoldl03/12/2025Telephone [facility] [address] [place] [facility] [place] [address] Michelle Zendejas MA 05/09/2025Refill [facility] [address] [place] [facility] [place] [address] Jarad Almazan MD Mixed hyperlipidemia; Prinzmetal angina; [...] file11/07/2023CommentsUnknownSex and Gender InformationValueDate RecordedSex Assigned at MpiyeWqujdy17/01/2025 1:40 PM EDT Legal AxzCkmspp43/29/2022 10:20 PM EDTGender XxkyxqvkUulvwy80/01/2025 1:40 PM EDTSexual OrientationHeterosexual or Ihlzqnai38/01/2025 1:40 PM EDT Last Filed Vital Signs Vital SignReadingTime TakenCommentsBlood Oipgpjea256/7808 2:13 PM EDT Lwwqm850604/19/2025 2:13 PM EDTTemperature--Respiratory Rate--Oxygen Chjnilsnow56% 04/19/2025 2:13 PM EDTInhaled Oxygen Concentration--Cotwaq58 kg (150 lb) 04/19/2025 2:13 PM YSMUwgvlf768 cm (5' 3 )04/19/2025 2:13 PM EDTBody Mass Index 26.57004/19/2025 2:13 PM EDT Plan of Treatment Health MaintenanceDue DateLast DoneCommentsCT Zepxcwchsprz1957FIT-DNA 1957FIT1957FOBT1957Medicare Annual Wellness (AWV)1955 Fuubvjwhryunl1957Depression Itgfsrpqe99/28/1969Pneumococcal Vaccine: 50+ Years (1 of 2 - PCV)1976Adult Ndnurmx0004/12/19790577Dlftbrjnh88/28/1997Zoster Vaccines (1 of 2)2007Fall Risk Hjqvtxdux12/28/2022COVID-19 Vaccine (1 - season)2025Influenza Vaccine (#1)9947Stoareqdevi07/02/2029 06/17/2019, 12/06/2005Colorectal Cancer Qwfjdgeta00/02/2029HIB VaccinesAged Out No longer eligible based on [...] Team MemberRelationshipSpecialtyStart Date Joaquin Aleman MD [address] [facility] [place] [address] PCP - Qemnokz67/12/22
--- NOTE | 2025-07-29 13:01 | US_ITS ---
The [address] [address] Patient Name: OUMAR CHEN MRN: [id number] date: 1955 Sex: F Assigned Patient Location: [place] Current Patient Location: Accession/Order Number: [id number] Exam Date: 07/29/2025 13:02 Report Date: 07/30/2025 07:44 At the request of: JOSSIE CIFUENTES Procedure: US thyroid THYROID ULTRASOUND COMPARISON: None CLINICAL DATA: Low TSH. The right thyroid lobe measures 4.7 x 1.5 x 1.4 cm . The left lobe measures 4.7 x 1.4 x 1.7 cm . The isthmus measures 3 mm. There is heterogeneous echogenicity. Multiple thyroid nodules are seen. At the superior pole on the right is a heterogeneous hypoechoic TI-RADS 4 nodule measuring 13 x 6 x 7 mm . At the mid to upper pole in close proximity is another heterogeneous nearly isoechoic nodule measuring 11 by 8 x 11 mm and inferior to that toward the isthmus another measuring 16 x 8 x 12 (TI-RADS 3). There is a macrocalcification at the inferior pole on the right measuring 2 mm in size. At the inferior pole on the left, there is a dominant isoechoic nodule with cystic and hypoechoic components measuring 14 x 14 x 18 mm (TI-RADS 2). At the superior pole there is a tiny hypoechoic nodule measuring 5 mm and at the midpole there is another hypoechoic nodule measuring 8 x 7 x 7 mm, both TI-RADS 4. US/US thyroid IMPRESSION: MULTIPLE THYROID NODULES, DESCRIBED. ULTRASOUND FOLLOW-UP IN ONE YEAR IS SUGGESTED. Impression dictated by: Yolette Gentile M.D. 07/30/2025 7:44 AM Dictation Location: [place] [address] Electronically authenticated by: [id number] Y Date: 07/30/2025 07:44
--- OUTSIDE RECORDS SUMMARY | 2025-07-29 13:01 | XMS_ITS | CCD ---
Author Organization [facility] Care Team Providers Care Hydrodynamics Teacher Name Role Phone Nichelle Bailey II Unavailable [...] NICHOLAS, DR GARZA Primary Care Unavailable UTELAYLA Consulting Unavailable NICHOLAS, DR GARZA Admitting Unavailable [...] Unavailable NICHELLE BAILEY Attending Unavailable DR JOAQUIN ALMEAN Primary Care Unavailable Joaquin Aleman Primary Care Physician Joaquin Aleman Referring Unavailable Pablo VALENCIA Attending Unavailable Pablo VALENCIA Attending Unavailable Unavailable Primary Care Provider Unavailabl e Joaquin Aleman MD Primary Care Provider Odalys SMALLWOOD, Haley Attending Provider [phone] Joaquin Aleman MD Attending Provider DANIEL RIBEIRO Attending Unavailable DANIEL RIBEIRO Attending Unavailable Haley Morrow MD Attending Provider [phone] Joaquin Aleman MD Primary Care Provider [...] OnsetReaction(s) Facility (2 sources)Coconut extract; Translations: [COCONUT]Drug Kwkbuxa51-08-6128RviChildren[facility] Rep[facility] (1 source)Misc-Food; Translations: [Misc-Food]Food allergy (disorder)09-11-2014 [facility] Repository (1 source)No Known Medication Allergies; Translations: [No Known Medication Allergies]Propensity to adverse reactions (disorder)[facility] Repository (6 sources)Coconut extractDrug Xmiuqva26-39-1572[facility] (7 sources)Onion extract; Translations: [ONION]Drug Oduemsi04-37-5314[facility] (1 source)amLODIPine; Translations: [AMLODIPINE]Drug Trakmfw47-97-4629ArgboghccdOhio[facility] Rep[facility] Medications Current Medications MedicationDrug Class(es)DatesSig (Normalized)Sig (Original)[id number] 200 actuat albuterol 0.09 mg/actuat metered dose inhaler (6 sources)beta2-Adrenergic Agonisttake 1 puff(s) by inhalation every eight hoursalbuterol HFA 90 mcg/act inhaler Inhale 1 puff every 8 (eight) hours Active calcium carbonate 1500 mg oral tablet (5 sources)Start: 88-65-6934agkz 1 tablet by mouth twice dailyCalcium Carbonate [...] 0.05 mg oral capsule (8 sources)Vitamin DStart: 15-47-9485obnl 1 capsule by mouth once daily Cholecalciferol (Vitamin D3) 50 mcg (2,000 unit) capsule Active 2000 UNIT PO Daily May 05, 2025 12:00am Complies with drug therapyCyclosporine (2 sources)Calcineurin Inhibitor ImmunosuppressantStart: 20-84-5239Bilhqotxgytm 0.05 % dropperette Active 1 DROPS OPHTHALMIC As Directed May 05, 2025 12:00am Complies with drug therapyStart: 36-09-2620euuvrPBBZSXZ (Restasis) 0.05 % ophthalmic emulsion (3 sources)take 1 drop(s) into the eye(s) in the morningcycloSPORINE (Restasis) 0.05 % ophthalmic emulsion 1 drop in the morning and 1 drop before bedtime. Activediclofenac sodium 0.01 mg/mg topical gel (3 sources)Nonsteroidal Anti-inflammatory DrugStart: 35-83-6902Stivmzus 1 % as directed Externally every 4 hours for 30 days Dec, Active1 ml erenumab- aooe 70 mg/ml auto-injector (9 sources)Start: 21-23-2445ilrccs 1 mL by subcutaneous injection onceerenumab (Aimovig) 70 MG/ML injection Indications: Migraine without aura and without status migrainosus, not intractable Inject 1 mL (70 mg) under the skin every 28 (twenty-eight) days 1 mL 2 05/21/2024 ActiveAimovig 70 MG/ML as directed Subcutaneous Activeezetimibe 10 mg oral tablet (7 sources)Dietary Cholesterol Absorption InhibitorStart: 20-91-4602jjni 1 tablet by mouth once dailyEzetimibe 10 mg tablet Active 10 MG PO Daily November 19, 2024 1:00am Complies with drug therapyfamotidine 40 mg oral tablet (4 sources)Histamine-2 Receptor AntagonistStart: 85-30-8520httn 1 tablet by mouth twice dailyfamotidine 40 [...] (14 sources)Angiotensin Converting Enzyme InhibitorStart: 04-01-2024 End: 71-82-2697lvzp 1 tablet by mouth once dailylisinopril 5 MG tablet Take 1 tablet by mouth Daily 04/01/2024 ActiveStart: 53-85-5818kjbz 1 tablet by mouth once dailylisinopril 5 [...] Activemelatonin 5 mg oral tablet (1 source)Start: 02-23-6352pqvi 1 tablet by mouth once daily at bedtime as neededmelatonin 5 mg oral tablet 5 mg = 1 tab(s), Oral, Once a day (at bedtime), PRN for insomnia, Refills(s) 0 Start Date: 03/10/24 Status: Orderedmeloxicam 7.5 mg oral tablet (1 source)Nonsteroidal Anti-inflammatory DrugStart: 20-05-1905iqnh 1 tablet by mouth every twenty-four hoursMeloxicam 7.5 MG 1 tablet Orally Once a day for 30 day(s) Aug, Activemetoprolol tartrate 25 mg oral tablet (1 source)beta-Adrenergic BlockerMetoprolol Tartrate 25 MG as directed Orally Activeomeprazole 40 mg delayed release oral capsule (1 source)Proton Pump InhibitorStart: 43-53-7058ddqs 1 capsule by mouth once dailypantoprazole 40 [...] ActiveVentolin HFA 90 mcg/inh Aerosol (1 source)Start: 17-26-5789sjgj 2 puff(s) by inhalation four times dailyVentolin HFA 90 mcg/inh Aerosol 2 puff(s), Inhalation, QID Start Date: 05/28/19 Status: Ordered Completed/Discontinued Medications MedicationDrug Class(es)DatesSig (Normalized)Sig (Original)Ajt1685-Czp Gjg-Olfl-Mvv-Asb-C (4 sources)Osmotic Laxative, Vitamin CStart: 11-19-2024 End: 92-53-1514zmrq 1 dose by mouth once in the ffryznkAhp3654-Sex Jos-Izou-Tcu-Asb-C (Plenvu) 140-9-5.2 gram powder in packet, sequential Discontinued 140 ML PO Once 1 November 19, 2024 1:00am May 05, 2025 1:08pm at 4:00 pm take first dose followedby 16 oz glass of liquid take second dose at 11:00 pm followed by a 16 oz glass of liquidStart: 38-56-6539xclx 1 dose by mouth once in the eveningStart: 28-10-6199igjs 1 dose by mouth once in the jrdyolwMfb0031-Ira Bwx-Byoo-Fke-Asb-C (Plenvu) 140-9-5.2 gram powder in packet, sequential Active 140 ML PO Once 1 November 19, 2024 1:00am at 4:00 pm take first dose followed by 16 oz glass of liquid take second dose at 11:00 pm followed by a 16 oz glass of liquidaspirin 81 mg chewable tablet (8 sources)Platelet Aggregation Inhibitor, Nonsteroidal Anti-inflammatory Drug Start: 11-19-2024 End: 86-86-9040clsu 2 tablets by mouth once dailyAspirin 81 mg tablet,chewable Discontinued 2 TAB PO Daily November 19, 2024 1:00am May 05, 2025 1:08pm FreeTextSi tablets Orally Once a day; Note: Source Status: Taking; Provider: Sorin Morales II ( )Start: 37-96-8730lxaj 1 tablet by mouth once dailyaspirin 81 mg oral tablet 81 mg = 1 tab(s), Oral, Daily Start Date: 05/28/19 Status: Orderedcelecoxib 100 mg oral capsule (2 sources)Nonsteroidal Anti-inflammatory DrugStart: 98-18-3065uvqi 1 capsule by mouth twice daily for arthritisCelecoxib 100 MG 1 capsule for arthritis Orally BID for 30 day(s) January, Not-Rgdfoy47 hr isosorbide mononitrate 30 mg extended release oral tablet (8 sources)Nitrate VasodilatorStart: 11-19-2024 End: 43-01-7589ujir 1 tablet by mouth every twenty-four hoursIsosorbide [...] acetonide 40 mg/ml injectable suspension (4 sources)CorticosteroidStart: 31-21-9215Cygdwgk-40 Apr, 120 mgStart: 55-46-7314Uychben -40 mg Aug, 120 mg Problems Active Problems Problem ClassificationProblemDateDocumented DateEpisodic/ChronicAnxiety disorders (3 sources)Anxiety; Translations: [Panic attack]71-91-7233LfrrbzeKgivwfv obstructive pulmonary disease and bronchiectasis (5 sources)Chronic obstructive lung disease; Translations: [Pulmonary emphysema] 40-56-4119QuhvaebSaazqfaq atherosclerosis and other heart disease (2 sources)Angina pectoris with documented spasm; Translations: [Angina pectoris with documented spasm]Onset: 63-38-0582ObwseouRtvnrbvhe of lipid metabolism (3 sources)Dyslipidemia; Translations: [Mixed hyperlipidemia]Onset: 08-27-2022 32-88-2415SivocbtIyhabhutjz disorders (2 sources)Gastroesophageal reflux viruwth07-54-4891GkljtpzKbqbnnvgl hypertension (3 sources)Hypertensive disorder; Translations: [Essential (primary) hypertension]Onset: 494936-55-4305RliqiaaMpbcunqvi and duodenitis (1 source)Zcagkgcex49-12-8077MvlvsqumBbznsqoi; including migraine (10 sources)Migraine; Translations: [Migraine, unspecified, not intractable, without status migrainosus]Onset: 084386-72-6218KovnucsCobpzd and vomiting (9 sources)Nausea; Translations: [Nausea]Onset: 613512-32-1484Kyisfeef Noninfectious gastroenteritis (1 source)Oqanidx32-12-5922AreuujslCqywxxwhtfqiaw (20 sources)Osteoarthritis of right hip joint; Translations: [Unilateral primary osteoarthritis, right hip]Onset: 09-14-2021 Resolved: 56-68-4996WwtupshVwxnz and unspecified benign neoplasm (4 sources)Benign neoplasm of cerebral meninges; Translations: [BENIGN NEOPLASM CEREBRAL MENINGES]Onset: 79-20-4682OuvlktmXmbqc circulatory disease (1 source)History of transient ischemic -40-1532AtooqqlzHhxbd connective tissue disease (1 source)Tasvdmgiwewx80-96-6945UqvpxvxeEvesz connective tissue disease (1 source)Primary fibromyalgia qignoiec44-88-0720CxzoxiubIpnvs endocrine disorders (6 sources)Pituitary mass; 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] Onset: 355005-24-3222AucajenUgskz endocrine disorders (2 sources)Rathke's pouch cyst; 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]09-56-8337DevjsivHvqgh gastrointestinal disorders (6 sources)Finding of sensation of abdomen; Translations: [Other specified symptoms and signs involving the digestive system and abdomen]97-86-4525Bpgddcfg Other gastrointestinal disorders (6 sources)Constipation alternates with diarrhea; Translations: [Other specified symptoms and signs involving the digestive system and abdomen]11-19-2024 EpisodicOther gastrointestinal disorders (6 sources)Abdominal bloating; Translations: [Abdominal distension (gaseous)] 01-49-4568RwpbkmnuComje gastrointestinal disorders (1 source)Diarrhea, unspecified; Translations: [Diarrhea, unspecified]Onset: 76-30-8307MkhykfqoKyjnf nervous system disorders (1 source)Fhshbsjupt72-25-8706MqfjuqgYgapp nutritional; endocrine; and metabolic disorders (1 source)Tgngbyaddf54-12-0902QdmlizoqHscun nutritional; endocrine; and metabolic disorders (1 source)Overweight in adulthood with body mass index of 25 or more but less than 0492-62-4052GpxhhcfjFsnsc screening for suspected conditions (not mental disorders or infectious disease) (8 sources)Decreased thyroid stimulating hormone level; Translations: [Other specified abnormal findings of blood chemistry]EpisodicOther skin disorders (1 source)Mass of posterior lobe of -43-5544QbyxbnodEhddhmzu enteritis and ulcerative colitis (1 source)Ulcerative ufwyrtu11-12-8079WyhglweZjolrirydxy; intervertebral disc disorders; other back problems (6 sources)Radiculopathy, lumbar region; Translations: [Lumbar radiculopathy] Onset: 04-19-2022 Resolved: 70-93-5419VofzooriJllpztwpmkpl (3 sources)LOW BACK PAIN, UNSPECIFIED; Translations: [LOW BACK PAIN, UNSPECIFIED]Onset: 49-86-8013Ehqnczwyidif (2 sources)CONTACT W/AND (SUSP) EXPOS COVID-19; Translations: [CONTACT W/AND (SUSP) EXPOS COVID-19]Onset: 04-75-1828Mqmmorsjmwrs (1 source)COUGH, UNSPECIFIED; Translations: [COUGH, UNSPECIFIED]Onset: 37-82-9547Tmvdtwneryuk (2 sources)R79.89 - Other specified abnormal findings of blood chemistryViral infection (1 source)COVID-19; Translations: [COVID-19]Onset: 04-04-2022 Past or Other Problems Problem ClassificationProblemDateDocumented DateEpisodic/ChronicAbdominal pain (16 sources)Indigestion; Translations: [Epigastric pain]Onset: 12-10-2024 00-77-1291RtothkxiBulqtfrevj associated with dizziness or vertigo (8 sources)Dizziness; Translations: [Dizziness and giddiness]Onset: 04-15-2024 63-45-1390SyejxnfcA Codes: Fall (1 source)Unspecified fall, initial encounter; Translations: [UNSPECIFIED FALL INITIAL ENCOUNTER]Onset: 43-07-9359UlflahkjNmzoobobkasqf symptoms and ill- defined conditions (2 sources)Dysuria; Translations: [Frequency of micturition]Onset: 06-03-2022 EpisodicNeoplasms of unspecified nature or uncertain behavior (12 sources)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; Translations: [Neoplasm of uncertain behavior ofpituitary gland]Onset: 64-53-3704TjpfrwprIfjmk aftercare (1 source)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; Translations: [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 DRUG THERAPY]Onset: 08-96-1177JuocqwfgRajpj circulatory disease (1 source)Other specified symptoms and signs involving the circulatory and respiratory systems; Translations:[OTH SPEC SX SIGNS INVLV CIRC RS]Onset: 34-63-2445YvbttruzJibvp gastrointestinal disorders (3 sources)Other specified symptoms and signs involving the digestive system and abdomen; Translations: [Abdominal pain, right upper quadrant]Onset: 12-10-2024 96-86-5307PivziwnxIacpw gastrointestinal disorders (2 sources)Abdominal distension (gaseous); Translations: [Flatulence, eructation, and gas pain]Onset: 369834-66-4161AubauolhUxtqc injuries and conditions due to external causes (1 source)Other specified injuries of head, initial encounter; Translations: [OTH SPEC INJURIES HEAD INITIAL ENC]Onset: 31-01-7721ScqgpllwLsvjv lower respiratory disease (4 sources)Other nonspecific abnormal finding of lung field; Translations: [OTH NONSPECIFIC ABN FIND LNG FIELD]Onset: 07-22-9246KuiqtxyqHggkcxoj codes; unclassified (8 sources)Memory impairment; Translations: [Other amnesia]Onset: 04-15-2024 61-99-7070RzdjmsruUmaqnbxlx and history of mental health and substance abuse codes (1 source)Personal history of nicotine dependence; Translations: [PERSONAL HISTORY OF NICOTINE DEPEND]Onset: 09-85-7434ModajcywWxqehnq and strains (1 source)Strain of muscle, fascia and tendon at neck level, initial encounter; Translations: [STRN MUSC FASCTENDON NECK LEVL INT]Onset: 18-61-8785Byhjtapd Superficial injury; contusion (2 sources)Contusion of lower back and pelvis, initial encounter; Translations: [Contusion of left hand, initial encounter]Onset: 69-80-3762SbadxhknMsnhyyvetuka (1 source)LOW BACK PAIN, UNSPECIFIED; Translations: [LOW BACK PAIN, UNSPECIFIED] Onset: 85-92-5863Cckxsexgbwmm (1 source)CONTACT W/AND (SUSP) EXPOS COVID-19; Translations: [CONTACT W/AND (SUSP) EXPOS COVID-19]Onset: 27-36-9458Idocwjk tract infections (4 sources)Urinary tract infection, site not specified; Translations: [UTI SITE NOT SPECIFIED]Onset: 87-30-8568Zvpvyeyi Results Test NameValueInterpretationReference RangeFacilityLon 06-09-2025L Specimen: [id number] Received: 06/09/25 Status: ISAIAS Navarrete Num: [id number] Spec Type: Surgical Subm Dr: Haley Morrow MD Tissues: A Small Intestine - Biopsy/Polyp (SMALL BOWEL BX) B Gastric Biopsy (GASTRIC BX) C Colon Biopsy (RANDOM COLON BX) Procedures: HE/6, Gross/Micro L4/3, H PYLORI, IHC First AB Age/ Patient Sex Location Account Attending Physician Oumar Cunningham 70/F [id number] Haley Morrow MD SPEC NUM: [id number] RECD: 06/09/25 STATUS: ISAIAS HASSANPriscilla NUM: [id number] ODILON: 06/09/25-[address] [facility] [address]: Haley Morrow MD ENTERED: 06/09/[address]: SPEC TYPE: Surgical DEPT: S ENTERED BY: [id number] RECV BY: [id number] ORDERED: HE/6, Gross/Micro L4/3, H PYLORI, IHC [...] submitted in a single cassette. (1, ns, [id number]) JASMIN Specimen: [id number] Received: 06/09/25 Status: ISAIAS Navarrete Num: [id number] Spec Type: Surgical Subm Dr: Haley Morrow MD Tissues: A Small Intestine - Biopsy/Polyp (SMALL BOWEL BX) B Gastric Biopsy (GASTRIC BX) C Colon Biopsy (RANDOM COLON BX) Procedures: HE/6, Gross/Micro L4/3, H PYLORI, IHC First AB Patient: Oumar Cunningham [id number] (Continued) Specimen: [id number] Received: 06/09/25 (Continued) Gross Description (Continued) Signed (signature on file) Nichelle Arreola JR, MD 06/11/25823 Specimen: [id number] Received: 06/09/25 Status: ISAIAS Navarrete Num: [id number] Spec Type: Surgical Subm Dr: Haley Morrow MD Tissues: A Small Intestine - Biopsy/Polyp (SMALL BOWEL BX) B Gastric Biopsy (GASTRIC BX) C Colon Biopsy (RANDOM COLON BX) Procedures: HE/6, Gross/Micro L4/3, H PYLORI, IHC First AB Patient: Oumar Cunningham [id number] (Continued) Specimen: [id number] Received: 06/09/25 (Continued) Gross Description (Continued) Part [...] pylori is interpreted as negative. CPT Codes 46885 x 3, 84809 Specimen: [id number] Received: 06/09/25 Status: ISAIAS Navarrete Num: [id number] Spec Type: Surgical Subm Dr: Haley Morrow MD Tissues: A Small Intestine - Biopsy/Polyp (SMALL BOWEL BX) B Gastric Biopsy (GASTRIC BX) C Colon Biopsy (RANDOM COLON BX) Procedures: HE/6, Gross/Micro L4/3, H PYLORI, IHC First AB ------- (more content not included)...[facility] Physician GroupOffice Visiton 96-82-2849Lqxjrh-up [id number] Oumar Cunningham 1955 F Date Provider Department Center 04/19/2025 DANIEL YUNG [facility] Family History Problem Relation Age of Onset Anemia Mother Breast cancer Mother Diabetes Mother Hypertension Mother Hyperlipidemia Mother Coronary artery disease Father Diabetes Father Hypertension Father Hyperlipidemia Father Stroke Paternal Grandmother Coronary artery disease Paternal Grandmother Family Status - Relation Status Age at Mother Father Paternal Grandmother Level of Service:78031 [place] OFFICE/OUTPATIENT ESTABLISHED MOD [facility]DM [facility] CenterUrine Cultureon 07-83-2749Xpczbdnf identified Cx Nom (U)No Growth 2 Days PERFORMED BY: [place] [address] PATHOLOGIST DRESSING ROOM ATTENDANT AIMEE JUNIOR M.D.NormalBaptist Health Hospital Doral Physician GroupComment on above: Performed By: #### CUU #### [place] [address] USAUrine cultureOrdered By: Joaquin Aleman on 83-99-8750Ukbleogj identified Cx Nom (U)No Growth 2 DaysMercy Health Allen HospitalCT abdomen pelvis w conon 58-30-2016UI abdomen pelvis w [facility] [place] [address] [place] [address] CT Scan Report Signed Patient: Oumar Cunningham MR#: [id number] 89 : 1955 Acct:[id number] Age/Sex: 69 / F ADM Date: 12/10/24 Loc: CT Room: Type: [facility] Attending Dr: Haley Morrow MD Copies [...] 4:37 PM Dictation Location: RADIO-PC-18 Transcribed By: [facility] 12/10/24 1637 Dictated By: Kev Chavez Jr, DO 12/10/24 1634 Signed By: 12/10/24 [facility] Physician GroupOffice Visiton 41-67-4514Vobxzc- up [id number] Oumar Cunningham 1955 F Date Provider Department Center 05/08/2024 Tracee-DANIEL RIBEIRO [facility] Family History Problem Relation Age of Onset Anemia Mother Breast cancer Mother Diabetes Mother Hypertension Mother Hyperlipidemia Mother Coronary artery disease Father Diabetes Father Hypertension Father Hyperlipidemia Father Stroke Paternal Grandmother Coronary artery disease Paternal Grandmother Family Status - Relation Status Age at Mother Father Paternal Grandmother Level of Service:33116 [place] OFFICE/OUTPATIENT ESTABLISHED MOD [facility] 91-00-0860FdfqqrnwcJpqwycpos From: So Finley LPN To: GSN - Clinical; Sent: 04/23/2024 14:41:29 EDT Show up: 03/22/2034 07:00:00 EDT Subject: colonoscopy recall Due Date/Time: 04/22/2034 07:00:00 EDT Reminder/Recall Patient due for screening colonoscopy 04/22/2034.[facility] HospitalConsent for Procedure/Surgeryon 15-74-8243Upsrcfm for Procedure/Surgery [id number]#1.00TIFRegional Medical CenterFacesheeton 55-10-2831Mwaswmzmm [id number]#1.00[facility] TownshipAmbulatory Visit Summaryon 42-42-2603Wtzchrcwbo Visit Summary OUMAR CUNNINGHAM :1955 Visit Date:03/10/2024 [...] you for choosing us for your care. [facility] HospitalRAD - Ultrasound Reporton 05-28-8076KYZ - Ultrasound Report [id number] Medical CenterPhysician Referralon 59-24-1068Gzxxiaysi Referral [id number]#1.00TIFRegional Medical CenterACTH, PLASMAon 17-12-0125VIYH, Wewynp95.7 pg/mLNormal7.2-63.3The Memorial Health SystemComment on above:Result Comment: ACTH reference interval for samples collected between 7 and 10 AM.Performed By: #### UAMIC #### [facility] [address] [address] [address] Annie RainCORTISOLoalexa 25-10-2338Vhnpyloy6.7 ug/dLNoCleveland Clinic Mentor Hospital Comment on above:Result Comment: Cortisol AM 6.2 - 19.4 Cortisol PM 2.3 - 11.9Performed By: #### CORTISO #### [facility] [address] [place] [address] Dr. Annie RainFSHoalexa 33-03-3121RMS06.8 mIU/mLNormalChildren'S Hospital Of ColumbusComment on above:Result Comment: Adult Female: Follicular phase 3.5 - 12.5 Ovulation phase 4.7 - 21.5 Luteal phase 1.7 - 7.7 Postmenopausal 25.8 - 134.8Performed By: #### LBCFSH #### [facility] [address] [place] [address] Dr. Annie RainGROWTH HORMONEon 69-09-2288Kzemaw Hormone, Serum1.5 ng/mLNormal 0.0-10.0[facility] ColumbusComment on above:Performed By: #### UAMIC #### [facility] [address] [place] [address] Dr. Annie RainFiwyhWHDJBUX-LUBU-TISKZP-FACTOR 1on 94-69-9773Oqsrsfp-Like Growth Factor I94 ng/xDTyvbmj44-412Rjs [facility] Health SystemComment on above:Performed By: #### INSGF1 #### [place] [address] Dr[address] Annie RainLUTEINIZING HORMONE (LH)on 63-86-0973AK02.1 mIU/mLNormalThe Memorial Health SystemComment on above:Result Comment: Adult Female: Follicular phase 2.4 - 12.6 Ovulation phase 14.0 - 95.6 Luteal phase 1.0 - 11.4 Postmenopausal 7.7 - 58.5Performed By: #### LBCLH #### [facility] [address] [place] [address] Dr. Annie RainPROLACTINon 25-83-1726Oedrvfdiw6.4 ng/mLNormal4.8-23.3The Memorial Health SystemComment on above:Performed By: #### PROLAC #### [facility] [address] [place] [address] Dr. Annie RainFREE T4on 05-93-1913Pxvj T4 [Mass/Vol]1.01 ng/dLNormal0.76-1.46 The [facility] Health SystemComment on above:Performed By: #### FT4 #### [facility] [address] [place] [address] Dr. Annie RainPROF CHEM 8 (BAS METB)on 70-48-0499Bfhgm gap [Moles/Vol]11.4 mmol/LNormalThe Al HospitalComment on above:Performed By: #### UAMIC #### [facility] [address] [address] [address] Annie RainCalcium [Mass/Vol]9.4 mg/dLNormal8.5-10.1[facility] Comment on above:Performed By: #### UAMIC #### [facility] [address] [address] [address] Annie RainChloride [Moles/Vol]105 mmol/EShggkg72-673ZjwChildren'S Hospital Of Columbus Comment on above:Performed By: #### UAMIC #### [facility] [address] [address] [address] Annie RainCO2 [Moles/Vol]29.6 mmol/XTkxahe62.0-32.0[facility] Comment on above:Performed By: #### UAMIC #### [facility] [address] [address] [address] Annie RainCreatinine [Mass/Vol]0.55 mg/dLNormal0.55-1.02The Memorial Health SystemComment on above:Performed By: #### UAMIC #### [facility] [address] [address] [address] Annie ChaneyGFR-AF LEBANESE>60Normal>=60[facility] Of ColumbusComment on above:Performed By: #### UAMIC #### [facility] [address] [address] [address] Annie ChaneyGFR-NON AF LEBANESE>60Normal>=60[facility] Hospital Of ColumbusComment on above:Performed By: #### UAMIC #### [facility] [address] [address] [address] Annie RainGlucose [Mass/Vol]80 mg/sLRqxmkj93-832FjlChildren'S Hospital Of Columbus Comment on above:Performed By: #### UAMIC #### [facility] [address] [place] [address] Dr. Annie RainPotassium [Moles/Vol]4.0 mmol/LNormal3.5-5.1[facility] Comment on above:Performed By: #### UAMIC #### [facility] [address] [address] [address] Annie RainSodium [Moles/Vol]142 mmol/ZCkmfoz506-773Cuc [facility] Comment on above:Performed By: #### UAMIC #### [facility] [address] [place] [address] Dr. Annie RainUrea nitrogen [Mass/Vol]8.0 mg/dLNormal7.0-18.0The Memorial Health SystemComment on above:Performed By: #### UAMIC #### [facility] [address] [address] [address] Annie RainUrea nitrogen/Creatinine [Mass ratio]14.5 mg/mgNoCleveland Clinic Mentor HospitalComment on above:Performed By: #### UAMIC #### [facility] [address] [place] [address] Dr. Annie Mtz 90-88-0475JYR1.404 uIU/mLNormal0.358-3.740Children[facility] Hospital Of ColumbusComment on above:Performed By: #### UAMIC #### [facility] [address] [place] [address] Dr. Annie RainXR LSPINE MIN 4 VIEWSon [id number] LSPINE MIN 4 VIEWSEXAM: XR LSPINE MIN 4 VIEWS EXAMINATION: XR LSPINE MIN 4 VIEWS HISTORY: Lumbar radiculopathy COMPARISON: 02/03/2019 FINDINGS: BONES: 2 mm anterolisthesis of L4 in relation L5. Mild spondylosis. Moderate to severe facet osteoarthropathy DISC SPACES: Multilevel disc space narrowing PARASPINOUS: Negative. No paraspinous abnormality is seen. OTHER: Vascular calcifications IMPRESSION: Degenerative changes Electronically authenticated by: YENI RUST Date: 2022-08-27 07:31[facility] HospitalMRI B[facility] W CONon [id number] BRAIN WO W CONEXAMINATION: MRI BRAIN WO [...] Electronically authenticated by: SOHAM HO Date: 2022-08-15 22:51NormWooster Community HospitalCREATININEon 59-18-6999Jrrmsfxgif [Mass/Vol]0.62 mg/dLNormal 0.55-1.02The [facility] Hospitalment on above:Performed By: #### CREA #### [facility] [address] [place] [address] Dr. Annie ChaneyGFR-AF LEBANESE>60Normal>=60The [facility] on above:Performed By: #### CREA #### [facility] [address] [place] [address] Dr. Annie ChaneyGFR-NON AF LEBANESE>60Normal>=60The [facility] on above:Performed By: #### CREA #### [facility] [address] [place] [address] Dr. Annie RainCT ABD/PELVIS WO CONon [id number] ABD/PELVIS WO CONEXAMINATION: CT ABD/PELVIS WO CON, [...] Electronically authenticated by: YENI RUST Date: 2022-06-25 13:[address] [place] [address] HEAD WO CONon [id number] HEAD WO CONEXAMINATION: CT HEAD WO CON [...] Electronically authenticated by: PABLO MILLER Date: 2022-06-25 13:56NormWooster Community HospitalCULTURE URINEon 23-15-7598QXDSYHC URINECulture Observations: LIGHT GROWTH OF MIXED GENITAL SILAS. NO POTENTIAL PATHOGENS SEEN.NormalThe Memorial Health SystemComment on above:Performed By: #### INSGF1 #### [facility] [address] [place] [address] Dr. Annie Nuñez RANDOM W/MICROSCOPICon 58-61-7436VVSRQTYTNNNF SEENNormalNONE SEENChildren'S Hospital Of ColumbusComment on above:Performed By: #### UAMIC #### [facility] [address] [place] [address] Dr. Annie Gar Ql (U)NegativeNormalNEGATIVEThe [facility] Comment on above:Performed By: #### UAMIC #### [facility] [address] [place] [address] Dr. Annie RainCASTSHERRILL SEENNormalNONE SEENChildren'S Hospital Of ColumbusComment on above:Performed By: #### UAMIC #### [facility] [address] [place] [address] Dr. Annie Vincent (U)CLEARNormalCLEARChildren'S Hospital Of ColumbusComment on above: Performed By: #### UAMIC #### [facility] [address] [place] [address] Dr. Annie Greco (U)YELLOWNormalYELLOWChildren'S Hospital Of ColumbusComment on above: Performed By: #### UAMIC #### [facility] [address] [place] [address] Dr. Annie Pinedaystals LM Nom (Urine sed)NONE SEENNormalNONE SEENChildren'S Hospital Of ColumbusComment on above:Performed By: #### UAMIC #### [facility] [address] [place] [address] Dr. Valencia ChangEpithelial cells LM Ql (Urine sed)RARENormalNONE SEEN /RAREThe Memorial Health SystemComment on above:Performed By: #### UAMIC #### [facility] [address] [place] [address] Dr. Annie RainGlucose Ql (U)NegativeNormalNEGATIVEChildren'S Hospital Of ColumbusComment on above:Performed By: #### UAMIC #### [facility] [address] [place] [address] Dr. Annie RainHemoglobin Ql (U)SMALLAbnormalNEGATIVEMercy Health – The [facility] Hospital on above:Performed By: #### UAMIC #### [facility] [address] [place] [address] Dr. Annie RainKetones Ql (U)TRACEAbnormalNEGATIVEChildren'S Hospital Of ColumbusComment on above:Performed By: #### UAMIC #### [facility] [address] [place] [address] Dr. Annie RainLEUKOCYTESNegativeNormalNEGATIVEChildren'S Hospital Of ColumbusComment on above:Performed By: #### UAMIC #### [facility] [address] [place] [address] Dr. Annie RainMUCOUSNONE SEENNormalNONE SEENChildren'S Hospital Of ColumbusComment on above:Performed By: #### UAMIC #### [facility] [address] [place] [address] Dr. Annie Clarktrite Ql (U)NegativeNormalNEGATIVEChildren'S Hospital Of ColumbusComment on above:Performed By: #### UAMIC #### [facility] [address] [place] [address] Dr. Annie RainpH (U)6.5 [pH]Normal5-9The Memorial Health SystemComment on above: Performed By: #### UAMIC #### [facility] [address] [place] [address] Dr. Annie RainKiacoPFC4-2Aszmsvvz8-8Ueu Memorial Health SystemComment on above:Performed By: #### UAMIC #### [facility] [address] [place] [address] Dr. Annie RainSPEC GRAVITY1.715Vzfjge1.005-<=1.025The Memorial Health SystemComment on above:Performed By: #### UAMIC #### [facility] [address] [place] [address] Dr. Annie Nuñez PROTEINNegativeNormalNEGATIVE/ TRACEThe [facility] Comment on above:Performed By: #### UAMIC #### [facility] [address] [place] [address] Dr. Annie RainUrobilinogen Qn (U)1.0 {Willam'U}/dLNormal0.2 - 1.0The Memorial Health SystemComment on above:Performed By: #### UAMIC #### [facility] [address] [place] [address] Dr. Annie RainWBC0-2AbnormalNONE SEENThe Memorial Health SystemComment on above: Performed By: #### UAMIC #### [facility] [address] [place] [address] Dr. Annie RainCT CHEST WO CONon 70-56-8144LP CHEST WO CONEXAMINATION: CT CHEST WO CON [...] authenticated by: YENI RUST Date: 2022-06-08 13:10NormalThe [facility] HospitalCULTURE URINEon 08-99-4898NISZJAA URINECulture Observations: NO GROWTH.NormalChildren'S Hospital Of ColumbusComment on above:Performed By: #### INSGF1 #### [facility] [address] [place] [address] Dr. Annie Nuñez RANDOM W/MICROSCOPICon 25-48-3217BCMGARQGTKKGYFsicgajbAKUA SEENChildren'S Hospital Of ColumbusComment on above:Performed By: #### UAMIC #### [facility] [address] [place] [address] Dr. Annie Gar Ql (U)NegativeNormalNEGATIVEChildren'S Hospital Of Columbus Comment on above:Performed By: #### UAMIC #### [facility] [address] [place] [address] Dr. Annie White SEENNormalNONE SEENChildren'S Hospital Of ColumbusComment on above:Performed By: #### UAMIC #### [facility] [address] [place] [address] Dr. Annie Vincent (U)CLEARNormalCLEARChildren'S Hospital Of ColumbusComment on above: Performed By: #### UAMIC #### [facility] [address] [place] [address] Dr. Annie Greco (U)LT. YELLOWNormalYELLOWChildren'S Hospital Of ColumbusComment on above:Performed By: #### UAMIC #### [facility] [address] [place] [address] Dr. Annie Villatoro LM Nom (Urine sed)NONE SEENNormalNONE SEENChildren'S Hospital Of ColumbusComment on above:Performed By: #### UAMIC #### [facility] [address] [address] [address] Valencia ChangEpithelial cells LM Ql (Urine sed)RARENormalNONE SEEN /RAREThe Memorial Health SystemComment on above:Performed By: #### UAMIC #### [facility] [address] [place] [address] Dr. Annie RainGlucose Ql (U)NegativeNormalNEGATIVEChildren'S Hospital Of ColumbusComment on above:Performed By: #### UAMIC #### [facility] [address] [place] [address] Dr. Annie RainHemoglobin Ql (U)NegativeNormalNEGATIVEMercy Health – The [facility] Hospital on above:Performed By: #### UAMIC #### [facility] [address] [place] [address] Dr. Annie RainKetones Ql (U)NegativeNormalNEGATIVEChildren'S Hospital Of ColumbusComment on above:Performed By: #### UAMIC #### [facility] [address] [place] [address] Dr. Annie RainLEUKOCYTESNegativeNormalNEGATIVEChildren'S Hospital Of ColumbusComment on above:Performed By: #### UAMIC #### [facility] [address] [place] [address] Dr. Annie RainMUCOUSNONE SEENNormalNONE SEENChildren'S Hospital Of ColumbusComment on above:Performed By: #### UAMIC #### [facility] [address] [place] [address] Dr. Annie RainNitrite Ql (U)NegativeNormalNEGATIVEChildren'S Hospital Of ColumbusComment on above:Performed By: #### UAMIC #### [facility] [address] [place] [address] Dr. Annie RainpH (U)6.0 [pH]Normal5-9The Memorial Health SystemComment on above: Performed By: #### UAMIC #### [facility] [address] [place] [address] Dr. Annie RainBedwjYPK2-1Nuesho0-9Chy Memorial Health SystemComment on above:Performed By: #### UAMIC #### [facility] [address] [place] [address] Dr. Annie RainSPEC GRAVITY<=1.664Cqimuked8.005-<=1.025The [facility] Comment on above:Performed By: #### UAMIC #### [facility] [address] [place] [address] Dr. Annie RainUA PROTEINNegativeNormalNEGATIVE/ TRACEThe [facility] Comment on above:Performed By: #### UAMIC #### [facility] [address] [place] [address] Dr. Annie RainUrobilinogen Qn (U)0.2 {Willam'U}/dLNormal0.2 - 1.0The [facility] Health SystemComment on above:Performed By: #### UAMIC #### [facility] [address] [place] [address] Dr. Annie RainWBC0-2AbnormalNONE SEENThe [facility] Health SystemComment on above: Performed By: #### UAMIC #### [facility] [address] [place] [address] Dr. Annie RainCovid-19 PCR (CVDTB)on 20-02-7757SQID-CoV-2 (COVID-19) RNA GREGOR+probe Ql (Unsp spec)DetectedCritically abnormalNOT DETECTEDThe Memorial Health SystemComment on above:Result Comment: This test is not yet approved or cleared by the [place] FDA. When there are no FDA-approved or cleared tests available, and other criteria are met, FDA can make tests available under an emergency access mechanism called an Emergency Use Authorization (EUA). The EUA for this test is supported by the [place] of Health and Human Service's declaration that [...] longer be used).Performed By: #### INSGF1 #### [facility] [address] [address] [address] Annie [facility]RE[facility] BRAIN WO W CONon [id number] BRAIN WO W CON Begin Addendum #1 [...] no prior studies available for comparison.Normal The Memorial Health SystemBUNon 58-84-4045Ssii nitrogen [Mass/Vol]13.0 mg/dLNormal 7.0-18.0The [facility] Health SystemComment on above:Performed By: #### CRETee BUN #### [facility] [address] [address] [address] Annie RainCREATININEon 47-23-6699Luwpgzsfzk [Mass/Vol]0.70 mg/dLNormal 0.55-1.02The [facility] Health SystemComment on above:Performed By: #### INSGF1 #### [facility] [address] [place] [address] Dr. Annie ChaneyGFR-AF LEBANESE>60Normal>=60The [facility] Health SystemComment on above:Performed By: #### INSGF1 #### [facility] [address] [address] [address] Annie ChaneyGFR-NON AF LEBANESE>60Normal>=60The [facility] Health SystemComment on above:Performed By: #### INSGF1 #### [facility] [address] [address] [address] Annie Rain head/brain wo/w conon 21-58-6981XW head/brain wo/w con [facility] [place] [address] MRI Report Signed Patient: Oumar Cunningham MR#: [id number] 53 : 1955 Acct:[id number] Age/Sex: 65 / F ADM Date: 11/07/20 Loc: MR Room: Type: [facility] Attending Dr: oSham Woodson MD Ordering Provider: Soham Woodson MD [...] Remberto Coulter M.D.11/08/2020 11:48 AM Dictation Location: [place] [address] Transcribed By: [facility] 11/08/20 1148 Dictated By: Remberto Coulter II, MD 11/08/20 1135 Signed By: 11/08/20 1148[facility] CenterIST[facility] CREon 11-07-2020 Creatinine [Mass/Vol]0.6 mg/dLNormal0.6-1.3FMercy Health Tiffin Hospital Comment on above:Result Comment: ER/ESD physician is notified/shown all ISTAT results. Critical values may be confirmed by laboratory testing if deemed necessary by ER attending doctor.Performed By: #### ISCRE #### [address] Point of Care testing ,ISTAT GFR (> 60NormRegency Hospital ToledoComment on above:Result Comment: GFR estimated reference range: According to KDOQI guidelines, <60 ml/min/1.73m2 is sufficient to diagnose a patient with chronic kidney disease. PERFORMED BY: [place] [address] PATHOLOGIST DRESSING ROOM ATTENDANT MARK SERRATO M.D.Performed By: #### ISCRE #### [facility] [address] [place] [address] Point of Care testing ,ISTAT GFR (Non- Am> 60NoMount St. Mary HospitalComment on above:Performed By: #### ISCRE #### [address] Point of Care testing , Vital Signs Date TimeVital SignValuePerforming YxrkhjkqyFyvmgbxg61-17-6984 13:30-0500Body .6 Sd Cifuentes MD Work Phone: [phone] [place] [address]-05-2025 13:30-0500Body mass index (BMI) [Ratio]26.09 kg/g6LssyhKameron Cifuentes MD Work Phone: [phone] [address]-05-2025 13:30-0500Body .95 kgKameron Cifuentes MD Work Phone: [phone] [address]-05-2025 13:30-0500Diastolic blood fblpmzee56 mm[Hg]Kameron Cifuentes MD Work Phone: [phone] [address]-05-2025 13:30-0500Heart rate68 /min Kameron Cifuentes MD Work Phone: [phone] [place] [address]-05-2025 13:30-0500Respiratory rate16 /minKameron Cifuentes MD Work Phone: [phone] [place] [address]-05-2025 13:30-8510BoT0% (BldA) [Mass fraction]98 %Kameron Cifuentes MD Work Phone: [phone] [place] [address]-05-2025 13:30-0500Systolic blood bzfzjdea573 mm[Hg]Kameron Cifuentes MD Work Phone: [facility] HospitalAkvxtkxeme95-56-7316 09:40-0400Diastolic blood lmjfeeyh91 mm[Hg]Joaquin Aleman MD Work Phone: [phone]09-24-2025 09:40-0400 Heart rate62 /Lindsay Aleman MD Work Phone: [phone] [place], [place] 6247709-24-2025 09:40-0400 Respiratory rate16 /Lindsay Aleman MD Work Phone: [phone] [place], [place] 6247709-24-2025 09:40-0400 SaO2% (BldA) [Mass fraction]99 %Joaquin Aleman MD Work Phone: [phone] [place], [place] 6247709-24-2025 09:40-0400 Systolic blood ipcoyuyy005 mm[Hg]Joaquin Aleman MD Work Phone: [phone] [place], [place] 6247709-24-2025 07:15-0400 Body avtmvx925.56 cmJoaquin Aleman MD Work Phone: [phone] [place], [place] 6247709-24-2025 07:15-0400 Body bnoorv08.67 kgJoaquin Aleman MD Work Phone: [phone] [place], [place] 6247708-20-2025 13:04-0400 Body .56 cmJoaquin Aleman MD Work Phone: [phone] [place], [place] 6247708-20-2025 13:04-0400 Body mass index (BMI) [Ratio]26.4 kg/u7CjolkncJoaquin Aleman MD Work Phone: [phone])[address] [place], [place] 6247708-20-2025 13:04-0400 Body grxevw24.85 kgJoaquin Aleman MD Work Phone: [phone] [place], [place] 6247703-06-2025 11:14-0500 Body kowibx277.56 cmJoaquin Aleman MD Work Phone: [phone] [place], [place] 6247703-06-2025 11:14-0500 Body mass index (BMI) [Ratio]26.4 kg/f9JgmlmyxJoaquin Aleman MD Work Phone: [facility]03-06-2025 11:14-0500 Body udiqtr30.93 kgJoaquin Aleman MD Work Phone: [phone]09-05-2024 14:13-0400 Body qivzle496.6 cmAkevon Schmid PA Work Phone: [phone] HospitalRktcihirjg44-20-0877 14:13-0400Body mass index (BMI) [Ratio]26.26 kg/m2Layla JAIME Work Phone: [phone] HospitalOqumpirfdi02-49-5133 14:13-0400Body rfpeek59.4 kg Layla JAIME Work Phone: [phone] HospitalJorectkdew72-84-2548 14:13-0400Diastolic blood mzjtqicg08 mm[Hg]Layla JAIME Work Phone: [phone]-[facility] HospitalVihikeroqi79-17-9786 14:13-0400Heart rate69 /min Layla JAIME Work Phone: [facility] HospitalZhsfhygexl80-45-0850 14:13-0400Respiratory rate16 /minLayla Schmid PA Work Phone: [facility] HospitalOejderqurx78-93-7436 14:13-6706UeY0% (BldA) [Mass fraction]96 %Layla JAIME Work Phone: [facility] HospitalDxszisusgp12-05-2176 14:13-0400Systolic blood ghafdftz780 mm[Hg]Layla JAIME Work Phone: [facility] HospitalGrpnellutp29-52-9523 14:14-0400Blood Pressure LocationMichael NILL [phone]-UgwqlOhiohealth [facility]ering[facility]06-25-2024 14:14-0400Diastolic blood mm[Hg]Pablo NILL [phone]-SwtkqOhiohealth [facility]ering[facility] Hospital06-25-2024 14:14-0400Heart rate72 /minMichael NILL [phone]-VhhokFostoria City Hospitalue06-25-2024 14:14-0400Respiratory rate16 /minMichael NILL 522-6945Wipajm-ZedngFostoria City Hospitalue06-25-2024 14:14-0400Systolic blood ondmxrsa428 mm[Hg]Pablo NILL [phone]-MuhnxFostoria City Hospitalue08-04-2022 12:15-0400Body mwpnhi025.56 cmRobert Wallowa II Other [employer] Other 08-04-2022 12:15-0400Body mass index (BMI) [Ratio] 27.46 kg/c7Mgawjt Sorin II Other [employer] Other 08-04-2022 12:15-0400Body mewaoa97.58 kgRobert Sorin II Other [employer] Other 05-05-2022 10:15-0400Body bgdlby642.56 cmRobert Wallowa II Other [employer] Other 05-05-2022 10:15-0400Body mass index (BMI) [Ratio] 27.98 kg/f6Upossr Wallowa II Other [employer] Other 05-05-2022 10:15-0400Body awkusz04.94 kgRobert Sorin II Other [employer] Other 04-20-2022 12:45-0400Body eujeev444.56 cmRobert Wallowa II Other [employer] Other 04-20-2022 12:45-0400Body mass index (BMI) [Ratio] 27.98 kg/j7Kuwpcf Sorin II Other [facility] Other 04-20-2022 12:45-0400Body .94 kgRobert Wallowa II Other [employer] Other 12-30-2021 10:00-0500Body jzcnyz597.56 cmRobert Wallowa II Other [employer] Other 12-30-2021 10:00-0500Body mass index (BMI) [Ratio] 27.63 kg/f3Otyunp Sorin II Other [employer] Other 12-30-2021 10:00-0500Body ujpqnu05.03 kgRobert Wallowa II Other [employer] Other Encounters Encounter DateEncounter TypeCare ProviderFacilityStart: 07-21-2025 End: 01-37-3702Xrfocjwilliam Cifuentes MD Work Phone: [facility] EndocrinologyStart: 07-21-2025 End: 28-09-4331Iflvjkstephen Cifuentes MD Work Phone: [facility] Liz EndocrinologyStart: 07-21-2025 End: 98-34-1058Tgyqyo outpatient visit 25 minutesKameron Cfiuentes MD Work Phone: noms Liz EndocrinologyComment on above:Low TSH level (Primary Dx); Rathke's cleft cyst (HCC)Start: 07-21-2025 End: 62-14-6207expdrydxmgJWXAVJovita Zavala AvailableStart: 06-09-2025 End: 19-96-2547uisvbwphzzOpbp AsaadFacility:[facility] Start: 72-03-0562Ims-patient / Non-visitHaley Morrow MD-[facility] Work Phone: Start: 05-11-2025 End: 14-04-4279Wwcjmiuacu OrdersHaley Morrow MD Work Phone: Referring PhysicianComment on above:Low TSH level (Primary Dx)Start: 05-05-2025 End: 16-48-0623fazrnjurztLwepqmz M Hoy MD Work Phone: [facility] [place] [facility] Work Phone: Start: 05-05-2025 End: 85-93-7638Wiootau encounter procedureHaley Morrow MD-[facility] Work Phone: Start: 04-19-2025 End: 43-33-8594ogxyhgsggqJZBAYF [facility] Start: 04-01-2025 End: 29-61-4718rbmasjtmymSogvcch M [facility] Work Phone: Start: 04-01-2025 End: 30-52-5060Ssonnsug ReferredJoaquin Reyna MD-[facility] Start: 12-10-2024 End: 55-45-0095Ceyugbd encounter procedureJoaquin Aleman MD Work Phone: [facility] [place] Work Phone: Start: 12-10-2024 End: 56-41-4883zkwbkzaeqtCliulzn M Hoy MD Work Phone: [facility] Work Phone: Start: 11-19-2024 End: 93-68-7956Bkgajcg encounter Nehemiah Aleman MD Work Phone: [facility] Work Phone: Start: 05-21-2024 End: 09-77-3402Ifxael [facility] Work Phone: [facility] R[facility]TEStart: 05-21-2024 End: 49-60-8725Xewjqx flowsheetLayla Binu JAIME Work Phone: [facility] [place] STATE ROUTEStart: 05-21-2024 End: 96-70-6161Hjszol outpatient visit 25 Jayden Binu JAIME Work Phone: noms [place] STATE ROUTEComment on above: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); Dizziness; Migraine without aura and without status migrainosus, not intractable (CMS/HCC); Memory changeStart: 05-08-2024 End: 24-60-2600hlyqelmyebNJRGHM [facility] Start: 04-22-2024 End: 18-01-2395gmqgkenfhqXlmycuv R NILLFacility:CD:[id number]: 03-10-2024 End: 97-72-1362dgbonybducJzzuuou HoyFacility: BellevueStart: 03-10-2024 End: 91-67-6539Otjbwqx encounter procedureMichael R NILL [phone]-Hoqmx [facility] [place] Start: 10-29-2022 End: 78-76-6046uuorjussdsPUMDM SABBAGHFacility:V9Pyuyf: 56-48-3495evqfpbzmbmOX JOAQUIN HOYFacility:V0Bvlfl: 08-24-2022 End: 79-83-2626iallbfzncmEN JOAQUIN HOYFacility:Z2Nnvcf: 08-15-2022 End: 05-16-9776hltkfnwrdrEP JOAQUIN HOYFacility:B8Qlhzd: 06-25-2022 End: 31-15-1721gdarpracrkPUPWQW RODRIGUEZFacility:S3Quaib: 06-20-2022 End: 47-48-2094qdwzkbsxtsQI JOAQUIN HOYFacility:K7Pltlv: 06-08-2022 End: 35-61-5563nmziavyzkvOD JOAQUIN HOYFacility:F0Zqcoo: 05-30-2022 End: 65-26-7226fbusurgeqqGB JOAQUIN HOYFacility:M9Kngda: 04-19-2022 End: 66-12-2880feexdcuzkrMmgafz Wallowa II Other [facility] [employer] Other Start: 01-69-6892Qxzevs outpatient visit 25 minutes Nichelle BRAGGG Liz OrthopedicsStart: 04-03-2022 End: 86-40-3262dnyqjezdzvMU JOAQUIN HOYFacility:R9Gekej: 02-05-2022 End: 01-79-0462ssnmhxskjwATQZ LACOURFacility:C2Aozbz: 01-29-2022 End: 03-08-7926rvqiuinbxrAUFHWH CARLISLEFacility:P6Pfuub: 01-18-2022 End: 96-33-7738gehqdnvoshBpqxpz Wallowa II Other [employer] Other Start: 31-66-3661Duolqd outpatient visit 25 minutes Nichelle BRAGGG Liz OrthopedicsStart: 01-03-2022 End: 77-98-7369kotrqiexzpKpuhae Wallowa II Other [employer] Other Start: 15-79-3600Amknro outpatient visit 15 minutes Nichelle BRAGGG [facility] OrthopedicsStart: 09-14-2021 End: 17-39-8643clcvvopvwlOzvsbi Wallowa II Other [facility] [employer] Other Start: 38-52-6207Hacshp outpatient new 30 minutes Nichelle Bailey IIFPG [facility] Procedures DateProcedureProcedure DetailPerforming ClinicianStart: 66-60-7151Zinnh culture Joaquin Aleman MD Work Phone: Start: 78-34-3758Oanczmni tomography of abdomen and pelvis with contrastJoaquin Aleman MD Work Phone: Start: 36-18-2181HhrdatehfdgEiwqngr NILL Start: 99-68-5594PqdltkzcoevfxlqwpedlKkwkvio NILL Comment on above:with biopsyStart: 01-22-2006 EsophagogastroduodenoscopyMichael NILL Start: 45-26-4724CerindfphxzXlulwul NILL Abdominal hysterectomyMichael NILL Bilateral salpingectomy with oophorectomyMichael NILL History of subtotal thyroidectomyMichael NILL Plan of Treatment DateCare ActivityDetailAuthorStart: 08-11-2025 End: 07-76-3300Drdmseg encounter cmchqbnho32/26/2025 2:00 PM EST Office Visit [facility] [address] [place] [id number] Kameron Cifuentes MD [address] [place] [address] [facility] EndocrinologyStart: 07-21-2025 End: 92-38-6952Zudkwvvhgblgi AntibodyThyroglobulin Antibody Lab Routine Low TSH level Expected: 07/21/2025 (Approximate), Expires: 07/21/2026[facility] Work Phone: Comment on above:Expected: 07/21/2025 (Approximate), Expires: 07/21/2026Start: 07-21-2025 End: 92-60-0154Jyotnfr peroxidase antibodyThyroid peroxidase antibody Lab Routine Low TSH level Expected: 07/21/2025 (Approximate), Expires: 07/21/2026 [facility] HealthcareComment on above:Expected: 07/21/2025 (Approximate), Expires: 07/21/2026Start: 07-21-2025 End: 88-75-2784Fbutdlojizg [Units/volume] in Serum or PlasmaTSH Lab Routine Low TSH level Expected: 07/21/2025 (Approximate), Expires: 07/21/2026[facility] Healthcare Comment on above:Expected: 07/21/2025 (Approximate), Expires: 07/21/2026Start: 07-21-2025 End: 39-58-9880Affbfyrupqr receptor antibodyThyrotropin receptor antibody Lab Routine Low TSH level Expected: 07/21/2025 (Approximate), Expires: 07/21/2026 [facility] HealthcareComment on above:Expected: 07/21/2025 (Approximate), Expires: 07/21/2026Start: 07-21-2025 End: 43-58-9723Vwcwvgpdt (T4) free [Mass/volume] in Serum or PlasmaT4, free Lab Routine Low TSH level Expected: 07/21/2025 (Approximate), Expires: 07/21/2026 [facility] HealthcareComment on above:Expected: 07/21/2025 (Approximate), Expires: 07/21/2026Start: 07-21-2025 End: 38-46-8986Wukeettaxazswqzu (T3) Free [Mass/volume] in Serum or PlasmaT3, free Lab Routine Low TSH level Expected: 07/21/2025 (Approximate), Expires: 07/21/2026[facility] HealthcareComment on above:Expected: 07/21/2025 (Approximate), Expires: 07/21/2026Start: 07-21-2025 End: 22-93-4020GA Thyroid glandUS thyroid Imaging Routine Low TSH level Expected: 07/21/2025, Expires: 07/21/2026[facility] HealthcareComment on above: Expected: 07/21/2025, Expires: 07/21/2026Start: 07-21-2025 End: 90-68-0857Nwfxbgo encounter iizcvtjdu16/05/2025 1:40 PM EST [facility] [address] [place] [address] Kameron Cifuentes MD [address] [place] [address] ArrivedNOMS Montero EndocrinologyComment on above:ArrivedStart: 19-26-9243RdymcydpeLima Memorial Hospitaltart: 87-79-4214Wxtqijo referralMemorial Health System [facility] Work Phone: Start: 05-51-2706Ojmmz cultureLima Memorial Hospitaltart: 24-52-1090Chqbgnem identified in Urine by CultureUrine CultureLima Memorial Hospitaltart: 08-12-2024 End: 45-22-2493Xhshblk encounter qinljngxa65/27/2024 1:00 PM EST Office Visit [facility] [address] [place] [address] Layla Schmid PA [address] [place] [address] [facility]Start: 05-21-2024 End: 42-65-4817Bwnrfjv encounter kotlieapq26/05/2024 2:00 PM EDT Office Visit [facility] [place] [address] [place] [phone] Layla Schmid PA [address] [place] [address] ArrivedNOCHILDREN'[facility] ROUTEComment on above: ArrivedComprehensive metabolic 2000 panel - Serum or PlasmaMercy Health Allen HospitalPatient EducationHemorrhoids Gastritis Omeprazole Know your [facility]Salem [facility] Work Phone: Patient referralMemorial Health System [facility] Work Phone: [facility] Immunizations Immunization DateImmunizationNotesCare ProviderFacilityNEGATED: Highlighted row has not occurred!76-00-2217oozmsmnve virus vaccine, unspecified formulation Pablo VALENCIA [phone]-Knlec General Surgery [facility]itus Medical CenterueComment on above: Result Comment: Will consult with primary care physician Payers DatePayer CategoryPayerPolicy [id number]-pay2022Medicaid [id number] 2022Medicare [id number] [id number] [id number] 2.160.9.432631.2519-01-1960 [id number] 2.0.2.31621[id number] 2.0.1.574363.3.57[id number] 2.0.1.782266.3.57[id number] 2.840.1.225100.3.57[id number] 2.0.1.206615.3.57[id number] 2.840.1.702967.3.57[id number] 2.160.1.869762.3.57[id number] 2.16840.1.641203.3.57[id number] 2.840.1.291345.3.57[id number] 2.16840.1.907782.3.57[id number] 2.840.1.060626.3.57[id number] 2.840.1.034653.3.57[id number] 2..840.1.215718.3.57[id number] 2..0.1.674018.3.57[id number] 2.16.840.1.02[id number] 2..840.1.398105.3.579.2.531 [id number] 2.840.1.323[id number] 2..840.1.213849.3.579.2.531 Social History DateTypeDetailFacilityStart: 49-76-4526Ool Assigned At BirthKindred Hospital Limatart: 03-10-2024 End: 80-70-3198Dhlnxvq smoking statusEx-smoker (finding)[facility] Centertart: 02-08-2016 End: 98-65-8540Mikxkaw smoking statusNeverOhiohealth Pickerington [facility] History of tobacco useCurrent smokerNOMS HealthcareHistory of tobacco use Cigarette SmokerNOMS HealthcareStart: 04-15-2024 End: 77-72-1869Fpccsmmgi beverage intakeLifetime non-drinker (finding)[facility] HealthcareStart: 90-38-1378Pbxivpf of Social functionNOMS HealthcareStart: 64-37-4660Lmw assigned at birthNot on fileNOMS HealthcareStart: 65-57-0218Ydd Female (finding)[facility] Hospitaltart: 10-32-3326Fjc Assigned At BirthFeSumma Health Barberton CampusTobacco smoking status NHIS Tobacco smoking consumption unknownHolzer Hospital Functional Status PkszNruevzicypBnakaeTzixhbwg72-82-6487Ufprdmodlh StatusN/AFFirelands Regional Medical Centerevue Clinical Notes 09-14-2021 to 07-21-2025 Note Date & DdvqWewiJjdttijj15-58-1582 History of Present illness Narrative* Kameron Cifuentes [...] SURGERY OOPHORECTOMY THYROID SURGERY documented in this encounterSainte Genevieve County Memorial HospitalSbwddfxuwn55-56-3863 Evaluation note* Author Haley Morrow [facility] HospitalAuthoredAugallup indian medical centerorlando 2024 1:13pm69 y/o female referred to the GI clinic for evaluation of LLQ and RUQ pain. + lower abdominal pain nausea vomiting and diarrhea for last few months. TSH is 0.274. CBC CMP fecal calprotectin HIV celiac panel were unremarkable CT abdomen/pelvis on 12/10/2024 was unremarkable Will arrange for EGD/colonoscopy. Will refer to endocrinology for evaluation of low TSH [facility] Work Phone: 1(259) 604-946808-04-2025 NoteUT Cardiology - [facility] Subjective Oumar Cunningham is a 70 [...] under the tongue every (more content not included)...[facility] 02-02-2025 Evaluation note* Author Imad [facility]riners HospitalAuthoredAugust 2024 1:13pm69 y/o female referred to the GI clinic for evaluation of LLQ and RUQ pain. + lower abdominal pain nausea vomiting and diarrhea for last few months. TSH is 0.274. CBC CMP fecal calprotectin HIV celiac panel were unremarkable CT abdomen/pelvis on 12/10/2024 was unremarkable Will arrange for EGD/colonoscopy. Will refer to endocrinology for evaluation of low TSH [facility] Work Phone: 1(575) 969-604103-27-2025 Radiology Diagnostic study noteVETERANS HEALTH ADMINISTRATION Main [place] [address] [place] [address] CT Scan Report Signed Patient: Oumar Cunningham MR#: [id number] : 1955 Acct:[id number] Age/Sex: 69 / F ADM Date: 5 Loc: CT Room: Type: [facility] Attending Dr: Haley Morrow MD Copies [...] Chavez Jr., D.OBob12/10/2024 4:37 PM Dictation Location: [facility]-18 Transcribed By: [facility] 12/10/24 1637 Dictated By: Kev Chavez Jr, DO 12/10/24 1634 Signed By: 12/10/24 1637 [facility]03-06-2025 Evaluation note* Author Haley Morrow [facility] HospitalAuthoredMar 2024 12:35pm69 y/o female referred to the GI clinic for evaluation of LLQ and RUQ pain. + lower abdominal pain nausea vomiting and diarrhea for last few months. -Will check CBC CMP, TSH, ESR, CRP, fecal calprotectin HIV ab, Celiac panel, fecal elastase and stool infectious workup -Will arrange for CT abdomen/pelvis. -Will arrange for EGD/colonoscopy. [facility] Work Phone: 1(509) 421-654808-23-2024 NoteUT Cardiology - [facility] Subjective Oumar Cunningham is a 69 [...] mg SL table (more content not included)... [facility]06-28-2024 NoteGeneral Surgery Office/Clinic Note Chief Complaint [...] gastritis Anxiety Bilateral lo (more content not included)...[facility] SystemComment on above:Result Comment: Electronically Signed By: ERIK SMALLWOOD, Pablo Workman\Date and Time Signed: 03/13/24 10:51 [id number] NotePROCEDURE: CT CSPINE WO CON COMPARISON: None. [...] Electronically authenticated by: YENI RUST Date: 2022-06-25 13:55[facility]10-10-2022 NotePROCEDURE: XR HAND LT MIN 3V HISTORY: [...] Electronically authenticated by: SOHAM HO Date: 2022-06-25 13:49[facility]08-04-2022 Evaluation note* Encounter Date Diagnosis Assessment Notes [...] we will get a lumbar spine x-ray. [facility] Other 05-05-2022 Evaluation note* Encounter Date Diagnosis [...] a viscosupplementation. 6. Follow up 3 months [facility] Other 04-20-2022 Evaluation note* Encounter Date Diagnosis [...] knee compared to a partial knee replacement. [facility] Other 12-30-2021 Evaluation note* Encounter Date Diagnosis [...] this well. 5. 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 Dizziness Dizziness and giddiness Migraine without aura and without status migrainosus, not intractable (CMS/HCC) Memory change Memory loss documented in this encounter [facility] HealthcareEvaluation noteNo assessment information availableSelect Medical [facility] Work Phone: Evaluation note* Diagnosis Low TSH level- Primary Nonspecific abnormal results of thyroid function study documented in this encounter [facility] HospitalEvaluation note* Diagnosis Low TSH level- Primary 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 Discharge instructionsAmbulatory Orders* Referral to Endocrinology Time Frame: 05/05/25, Location: None [facility] Work Phone: Hospital Discharge instructions Additional Instructions [...] NOT operate machinery such as power tools, [employer] mowers, snow blowers, sewing machines, etc. for [...] up in the office - Office number [phone]. [facility] Work Phone: Progress note No data available for this section [facility] Surgery [place] Reason for referral (narrative)No reason for referral information availableSelect Medical [facility] Work Phone: Summary Purpose Family History No [...] 11:1 1am Alternating constipation and diarrhea [facility] 2024 11:11am Bloating November 19, 2024 11:1 [...] content) DATE CREATED AUTHOR 11/12/2020 [facility] DATE CREATED AUTHOR AUTHOR'S ORGANIZ ATION 11/03/2022 [facility] DATE CREATED AUTHOR AUTHOR'S ORGANIZ ATION 05/01/2024 [facility] DATE CREATED AUTHOR AUTHOR'S ORGANIZ ATION 04/21/2025 [facility] DATE CREATED AUTHOR AUTHOR'S ORGANIZ ATION 06/18/2025 [facility] DATE CREATED AUTHOR AUTHOR'S ORGANIZ ATION 07/23/2025 [facility] EPIC REASON FOR VISIT (unrecogniz [...] May 05, 2025 End: May 05, 2025DoKarina Rutledgeathens-limestone hospitalmyra [facility] ProviderActiveStart: May 05, 2025 End: May 05, 2025Team MemberRelationshipSpecialtyStart DateEnd Date Joaquin Aleman MD PCP - GeneralFamily Medicine02/08/16 Haley Morrow MD [address] [place] [address] ReferringNmstromedina hospital05/11/25 Team Status: Active Member Role Status Dates Joaquin Aleman MD Primary Care Provider Active Start: June 09, 2025 Nicole Claudio ProviderActiveStart: June 09, 2025 Haley Morrow MDAscension [facility] ProviderActiveStart: June 09, 2025 Team MemberRelationshipSpecialtyStart DateEnd Joaquin Harper MD PCP - [facility] Medicine06/03/24Team MemberRelationshipSpecialtyStart DateEnd Date Joaquin Aleman MD PCP - [facility]06/03/24 Goals (unrecognized section and content) Goals may be documented in a n alternate section Source Comments (unrecognize d section and content) In the event this informatio n is protected by the Federal Confidentiality of Alcohol and Drug Abuse Patient Records regulations: The Federal rules restrict any use of the information to criminally investigate or prosecute any alcohol or drug abuse patient.[facility] FOR RECORDS PERTAINING TO PATIENTS WHO [...] BE BASED ON THE PRIMARY CLINICAL RECORDS. [facility]. provides no warranty or guarantee of the accuracy or completeness of information in this document.
== END 2025-07-29 12:57 | disposition home or self-care (01) ==
LOC: US 12:56
PROVIDERS: PCP Family Medicine; Visit Provider Internal Medicine
DX: R79.89 Other specified abnormal findings of blood chemistry (principal); E04.2 Nontoxic multinodular goiter
CPT/HCPCS: 76536

== ENCOUNTER 2025-08-27 13:53 | Outpatient (OUT) | payer MEDICARE, MEDICAID, SELFPAY ==
--- OUTSIDE RECORDS SUMMARY | 2025-08-27 13:57 | XMS_ITS | CCD ---
Author Organization [facility] Care Team Providers Care Numerical Control Programmer Name Role Phone Nichelle Bailey II Unavailable [...] Care Provider Odalys SMALLWOOD, Haley Attending Provider [phone] Joaquin Aleman MD Attending Provider DANIEL [...] OnsetReaction(s) Facility (2 sources)Coconut extract; Translations: [COCONUT]Drug Kwkbbeq26-95-6249YfrThe [facility] (1 source)Misc-Food; Translations: [Misc-Food]Food allergy (disorder)09-11-2014 [facility] (1 source)No Known Medication Allergies; Translations: [No Known Medication Allergies]Propensity to adverse reactions (disorder)[facility] Repository (6 sources)Coconut extractDrug Mixydbp54-89-8127[facility] (7 sources)Onion extract; Translations: [ONION]Drug Bugnewo57-82-3482[facility] (1 source)amLODIPine; Translations: [AMLODIPINE]Drug Xvaozej35-85-4349BcbcweefntAdena [facility] Rep[facility] Medications Current Medications MedicationDrug Class(es)DatesSig (Normalized)Sig (Original)[id number] 200 actuat albuterol 0.09 mg/actuat metered dose inhaler (6 sources)beta2-Adrenergic Agonisttake 1 puff(s) by inhalation every eight hoursalbuterol HFA 90 mcg/act inhaler Inhale 1 puff every 8 (eight) hours Active calcium carbonate 1500 mg oral tablet (5 sources)Start: 02-38-0833eahl 1 tablet by mouth twice dailyCalcium Carbonate [...] 0.05 mg oral capsule (8 sources)Vitamin DStart: 47-13-3195sylx 1 capsule by mouth once daily Cholecalciferol (Vitamin D3) 50 mcg (2,000 unit) capsule Active 2000 UNIT PO Daily May 05, 2025 12:00am Complies with drug therapyCyclosporine (2 sources)Calcineurin Inhibitor ImmunosuppressantStart: 26-44-2738Jomrsnvnqkup 0.05 % dropperette Active 1 DROPS OPHTHALMIC As Directed May 05, 2025 12:00am Complies with drug therapyStart: 78-77-3051oasgsEDCQTNY (Restasis) 0.05 % ophthalmic emulsion (3 sources)take 1 drop(s) into the eye(s) in the morningcycloSPORINE (Restasis) 0.05 % ophthalmic emulsion 1 drop in the morning and 1 drop before bedtime. Activediclofenac sodium 0.01 mg/mg topical gel (3 sources)Nonsteroidal Anti-inflammatory DrugStart: 49-50-8939Lmalmvdb 1 % as directed Externally every 4 hours for 30 days Dec, Active1 ml erenumab- aooe 70 mg/ml auto-injector (9 sources)Start: 90-57-4071gnerag 1 mL by subcutaneous injection onceerenumab (Aimovig) 70 MG/ML injection Indications: Migraine without aura and without status migrainosus, not intractable Inject 1 mL (70 mg) under the skin every 28 (twenty-eight) days 1 mL 2 05/21/2024 ActiveAimovig 70 MG/ML as directed Subcutaneous Activeezetimibe 10 mg oral tablet (7 sources)Dietary Cholesterol Absorption InhibitorStart: 51-53-7245zrup 1 tablet by mouth once dailyEzetimibe 10 mg tablet Active 10 MG PO Daily November 19, 2024 1:00am Complies with drug therapyfamotidine 40 mg oral tablet (4 sources)Histamine-2 Receptor AntagonistStart: 39-06-5450fbah 1 tablet by mouth twice dailyfamotidine 40 [...] (14 sources)Angiotensin Converting Enzyme InhibitorStart: 04-01-2024 End: 26-96-7393xckb 1 tablet by mouth once dailylisinopril 5 MG tablet Take 1 tablet by mouth Daily 04/01/2024 ActiveStart: 87-80-3756zyqq 1 tablet by mouth once dailylisinopril 5 [...] Activemelatonin 5 mg oral tablet (1 source)Start: 10-08-1185dpuh 1 tablet by mouth once daily at bedtime as neededmelatonin 5 mg oral tablet 5 mg = 1 tab(s), Oral, Once a day (at bedtime), PRN for insomnia, Refills(s) 0 Start Date: 03/10/24 Status: Orderedmeloxicam 7.5 mg oral tablet (1 source)Nonsteroidal Anti-inflammatory DrugStart: 41-92-8880ukej 1 tablet by mouth every twenty-four hoursMeloxicam 7.5 MG 1 tablet Orally Once a day for 30 day(s) Aug, Activemetoprolol tartrate 25 mg oral tablet (1 source)beta-Adrenergic BlockerMetoprolol Tartrate 25 MG as directed Orally Activeomeprazole 40 mg delayed release oral capsule (1 source)Proton Pump InhibitorStart: 15-26-3355scqi 1 capsule by mouth once dailypantoprazole 40 [...] ActiveVentolin HFA 90 mcg/inh Aerosol (1 source)Start: 94-52-8917cczm 2 puff(s) by inhalation four times dailyVentolin HFA 90 mcg/inh Aerosol 2 puff(s), Inhalation, QID Start Date: 05/28/19 Status: Ordered Completed/Discontinued Medications MedicationDrug Class(es)DatesSig (Normalized)Sig (Original)Nyb1337-Npf Jnv-Cizt-Nil-Asb-C (4 sources)Osmotic Laxative, Vitamin CStart: 11-19-2024 End: 08-01-1536kokx 1 dose by mouth once in the phyiqpqZmi8860-Cgb Dbu-Ojqc-Upu-Asb-C (Plenvu) 140-9-5.2 gram powder in packet, sequential Discontinued 140 ML PO Once 1 November 19, 2024 1:00am May 05, 2025 1:08pm at 4:00 pm take first dose followedby 16 oz glass of liquid take second dose at 11:00 pm followed by a 16 oz glass of liquidStart: 26-24-2894nhld 1 dose by mouth once in the eveningStart: 41-04-3393kwlr 1 dose by mouth once in the empgryeLck7605-Dgx Meh-Ptrr-Rqq-Asb-C (Plenvu) 140-9-5.2 gram powder in packet, sequential Active 140 ML PO Once 1 November 19, 2024 1:00am at 4:00 pm take first dose followed by 16 oz glass of liquid take second dose at 11:00 pm followed by a 16 oz glass of liquidaspirin 81 mg chewable tablet (8 sources)Platelet Aggregation Inhibitor, Nonsteroidal Anti-inflammatory Drug Start: 11-19-2024 End: 36-89-1157oxag 2 tablets by mouth once dailyAspirin 81 mg tablet,chewable Discontinued 2 TAB PO Daily November 19, 2024 1:00am May 05, 2025 1:08pm FreeTextSi tablets Orally Once a day; Note: Source Status: Taking; Provider: Sorin Morales II ( )Start: 78-56-6382luao 1 tablet by mouth once dailyaspirin 81 mg oral tablet 81 mg = 1 tab(s), Oral, Daily Start Date: 05/28/19 Status: Orderedcelecoxib 100 mg oral capsule (2 sources)Nonsteroidal Anti-inflammatory DrugStart: 01-60-7405dphw 1 capsule by mouth twice daily for arthritisCelecoxib 100 MG 1 capsule for arthritis Orally BID for 30 day(s) January, Not-Ouvpjb91 hr isosorbide mononitrate 30 mg extended release oral tablet (8 sources)Nitrate VasodilatorStart: 11-19-2024 End: 88-92-1552ipje 1 tablet by mouth every twenty-four hoursIsosorbide [...] acetonide 40 mg/ml injectable suspension (4 sources)CorticosteroidStart: 42-45-6338Lzkyrfy-40 Apr, 120 mgStart: 90-00-1286Owkczfr -40 mg Aug, 120 mg Problems Active Problems Problem ClassificationProblemDateDocumented DateEpisodic/ChronicAnxiety disorders (3 sources)Anxiety; Translations: [Panic attack]16-01-9870ArfpxbeYkpcjpz obstructive pulmonary disease and bronchiectasis (5 sources)Chronic obstructive lung disease; Translations: [Pulmonary emphysema] 39-94-9513BetbnphRcwgchmb atherosclerosis and other heart disease (2 sources)Angina pectoris with documented spasm; Translations: [Angina pectoris with documented spasm]Onset: 40-94-7127QqdmlweBuvsyystb of lipid metabolism (3 sources)Dyslipidemia; Translations: [Mixed hyperlipidemia]Onset: 08-27-2022 64-14-0088DjwtqlxHhyiqndcjp disorders (2 sources)Gastroesophageal reflux wlaeram88-44-5590JnkertvDysjrrqxi hypertension (3 sources)Hypertensive disorder; Translations: [Essential (primary) hypertension]Onset: 670848-28-2431BckpftrNkiqinbde and duodenitis (1 source)Zcydoplwp61-05-6939ReztyakfPeflrgoj; including migraine (10 sources)Migraine; Translations: [Migraine, unspecified, not intractable, without status migrainosus]Onset: 661051-07-6515DxrmjivBunpvg and vomiting (9 sources)Nausea; Translations: [Nausea]Onset: 345564-23-4971Uphfgnwf Noninfectious gastroenteritis (1 source)Ginnhzo98-52-9347VvoeafphWmukswzyiiepik (20 sources)Osteoarthritis of right hip joint; Translations: [Unilateral primary osteoarthritis, right hip]Onset: 09-14-2021 Resolved: 51-30-6004AhxstblPlqme and unspecified benign neoplasm (4 sources)Benign neoplasm of cerebral meninges; Translations: [BENIGN NEOPLASM CEREBRAL MENINGES]Onset: 06-43-9759WruefiwGoryz circulatory disease (1 source)History of transient ischemic herlrj07-49-5342CgccbhgzFavjm connective tissue disease (1 source)Plvrclggfelp75-12-1765RhjvhlgmGohlq connective tissue disease (1 source)Primary fibromyalgia livqjebw50-32-5676WlhctjfeEqkow endocrine disorders (6 sources)Pituitary mass; 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] Onset: 489089-67-3855CzolsqcIjmbl endocrine disorders (2 sources)Rathke's pouch cyst; 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]85-83-1975JqdnwsbUxqci gastrointestinal disorders (6 sources)Finding of sensation of abdomen; Translations: [Other specified symptoms and signs involving the digestive system and abdomen]50-78-4671Sqpzxomb Other gastrointestinal disorders (6 sources)Constipation alternates with diarrhea; Translations: [Other specified symptoms and signs involving the digestive system and abdomen]11-19-2024 EpisodicOther gastrointestinal disorders (6 sources)Abdominal bloating; Translations: [Abdominal distension (gaseous)] 19-05-0092YgpnffypVcgfn gastrointestinal disorders (1 source)Diarrhea, unspecified; Translations: [Diarrhea, unspecified]Onset: 54-57-1417IgyvfngzPuebi nervous system disorders (1 source)Kbwyhghnrm56-61-0931CkdostzBedfv nutritional; endocrine; and metabolic disorders (1 source)Eeafdqdbrq23-86-6998QyaemkzpPndqi nutritional; endocrine; and metabolic disorders (1 source)Overweight in adulthood with body mass index of 25 or more but less than 2738-66-2673IquyraukHefun screening for suspected conditions (not mental disorders or infectious disease) (8 sources)Decreased thyroid stimulating hormone level; Translations: [Other specified abnormal findings of blood chemistry]EpisodicOther skin disorders (1 source)Mass of posterior lobe of jkpwxymgr25-57-9775MpbojzkaApcovcbx enteritis and ulcerative colitis (1 source)Ulcerative ugnigfo99-91-7278UisiwbrStuxslkojfd; intervertebral disc disorders; other back problems (6 sources)Radiculopathy, lumbar region; Translations: [Lumbar radiculopathy] Onset: 04-19-2022 Resolved: 86-48-7280CpyxihowYkjqftqhyojl (3 sources)LOW BACK PAIN, UNSPECIFIED; Translations: [LOW BACK PAIN, UNSPECIFIED]Onset: 15-35-9897Xnulgsmbaiwu (2 sources)CONTACT W/AND (SUSP) EXPOS COVID-19; Translations: [CONTACT W/AND (SUSP) EXPOS COVID-19]Onset: 37-29-1309Aifvmweufywq (1 source)COUGH, UNSPECIFIED; Translations: [COUGH, UNSPECIFIED]Onset: 74-95-2863Alczscrnsuid (2 sources)R79.89 - Other specified abnormal findings of blood chemistryViral infection (1 source)COVID-19; Translations: [COVID-19]Onset: 04-04-2022 Past or Other Problems Problem ClassificationProblemDateDocumented DateEpisodic/ChronicAbdominal pain (16 sources)Indigestion; Translations: [Epigastric pain]Onset: 12-10-2024 02-79-1167UgycjoaiUxllilojvd associated with dizziness or vertigo (8 sources)Dizziness; Translations: [Dizziness and giddiness]Onset: 04-15-2024 52-54-8586OeghybmgD Codes: Fall (1 source)Unspecified fall, initial encounter; Translations: [UNSPECIFIED FALL INITIAL ENCOUNTER]Onset: 25-48-7084QmzvjnluHspkvxzbookdo symptoms and ill- defined conditions (2 sources)Dysuria; Translations: [Frequency of micturition]Onset: 06-03-2022 EpisodicNeoplasms of unspecified nature or uncertain behavior (12 sources)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; Translations: [Neoplasm of uncertain behavior ofpituitary gland]Onset: 90-63-0644UdmqroqwYuily aftercare (1 source)Other termination clerk (current) drug therapy; Translations: [OTH HOTEL SALES MANAGER CURRENT DRUG THERAPY]Onset: 23-84-7295XgjgyccmXklfv circulatory disease (1 source)Other specified symptoms and signs involving the circulatory and respiratory systems; Translations:[OTH SPEC SX SIGNS INVLV CIRC RS]Onset: 88-41-0522LvcaheotCnfxp gastrointestinal disorders (3 sources)Other specified symptoms and signs involving the digestive system and abdomen; Translations: [Abdominal pain, right upper quadrant]Onset: 12-10-2024 74-61-9310SeofaumoVrjaj gastrointestinal disorders (2 sources)Abdominal distension (gaseous); Translations: [Flatulence, eructation, and gas pain]Onset: 645792-50-6714AfdicdcqGqrck injuries and conditions due to external causes (1 source)Other specified injuries of head, initial encounter; Translations: [OTH SPEC INJURIES HEAD INITIAL ENC]Onset: 58-99-0967EpqucjywTgwqi lower respiratory disease (4 sources)Other nonspecific abnormal finding of lung field; Translations: [OTH NONSPECIFIC ABN FIND LNG FIELD]Onset: 57-60-9157CgeiabhvEzalhkbd codes; unclassified (8 sources)Memory impairment; Translations: [Other amnesia]Onset: 04-15-2024 48-56-2436YinrlzueTspwemtmk and history of mental health and substance abuse codes (1 source)Personal history of nicotine dependence; Translations: [PERSONAL HISTORY OF NICOTINE DEPEND]Onset: 15-03-8377InyycqqbFejrsug and strains (1 source)Strain of muscle, fascia and tendon at neck level, initial encounter; Translations: [STRN MUSC FASCTENDON NECK LEVL INT]Onset: 10-91-3424Ggjfjnwh Superficial injury; contusion (2 sources)Contusion of lower back and pelvis, initial encounter; Translations: [Contusion of left hand, initial encounter]Onset: 71-39-5987PkfspwulOmixqnmbpwdy (1 source)LOW BACK PAIN, UNSPECIFIED; Translations: [LOW BACK PAIN, UNSPECIFIED] Onset: 21-19-0507Kckznregwijy (1 source)CONTACT W/AND (SUSP) EXPOS COVID-19; Translations: [CONTACT W/AND (SUSP) EXPOS COVID-19]Onset: 96-23-6873Vsmgozd tract infections (4 sources)Urinary tract infection, site not specified; Translations: [UTI SITE NOT SPECIFIED]Onset: 97-89-5783Bfjycmus Results Test NameValueInterpretationReference RangeFacilityLon 06-09-2025L Specimen: [id number] Received: 06/09/25 Status: ISAIAS Navarrete Num: [id number] Spec Type: Surgical Subm Dr: Haley Morrow MD Tissues: A Small Intestine - Biopsy/Polyp (SMALL BOWEL BX) B Gastric Biopsy (GASTRIC BX) C Colon Biopsy (RANDOM COLON BX) Procedures: HE/6, Gross/Micro L4/3, H PYLORI, IHC First AB Age/ Patient Sex Location Account Attending Physician Oumar Cunningham 70/F [id number] Haley Morrow MD SPEC NUM: [id number] RECD: 06/09/25 STATUS: ISAIAS HASSANPriscilla NUM: [id number] ODILON: 06/09/25-8[address] [facility] [address]: Haley Morrow MD ENTERED: 06/09/[address]: SPEC TYPE: Surgical DEPT: S ENTERED BY: [id number] RECV BY: [id number] ORDERED: HE/6, Gross/Micro L4/3, H PYLORI, IHC [...] submitted in a single cassette. (1, ns, [id number]) JASMIN Specimen: [id number] Received: 06/09/25 Status: ISAIAS Navarrete Num: [id number] Spec Type: Surgical Subm Dr: Haley Morrow MD Tissues: A Small Intestine - Biopsy/Polyp (SMALL BOWEL BX) B Gastric Biopsy (GASTRIC BX) C Colon Biopsy (RANDOM COLON BX) Procedures: HE/6, Gross/Micro L4/3, H PYLORI, IHC First AB Patient: Oumar Cunningham [id number] (Continued) Specimen: [id number] Received: 06/09/25 (Continued) Gross Description (Continued) Signed (signature on file) Nichelle Arreola JR, MD 06/11/25823 Specimen: [id number] Received: 06/09/25 Status: ISAIAS Navarrete Num: [id number] Spec Type: Surgical Subm Dr: Haley Morrow MD Tissues: A Small Intestine - Biopsy/Polyp (SMALL BOWEL BX) B Gastric Biopsy (GASTRIC BX) C Colon Biopsy (RANDOM COLON BX) Procedures: HE/6, Gross/Micro L4/3, H PYLORI, IHC First AB Patient: Oumar Cunningham [id number] (Continued) Specimen: [id number] Received: 06/09/25 (Continued) Gross Description (Continued) Part [...] pylori is interpreted as negative. CPT Codes 29861 x 3, 28382 Specimen: [id number] Received: 06/09/25 Status: ISAIAS Navarrete Num: [id number] Spec Type: Surgical Subm Dr: Haley Morrow MD Tissues: A Small Intestine - Biopsy/Polyp (SMALL BOWEL BX) B Gastric Biopsy (GASTRIC BX) C Colon Biopsy (RANDOM COLON BX) Procedures: HE/6, Gross/Micro L4/3, H PYLORI, IHC First AB ------- (more content not included)...[facility] Physician GroupOffice Visiton 50-83-8371Kbuzjq-up [id number] Oumar Cunningham 1955 F Date Provider Department Center 04/19/2025 DANIEL YUNG [facility] Family History Problem Relation Age of Onset Anemia Mother Breast cancer Mother Diabetes Mother Hypertension Mother Hyperlipidemia Mother Coronary artery disease Father Diabetes Father Hypertension Father Hyperlipidemia Father Stroke Paternal Grandmother Coronary artery disease Paternal Grandmother Family Status - Relation Status Age at Mother Father Paternal Grandmother Level of Service:25498 [place] OFFICE/OUTPATIENT ESTABLISHED MOD MDM 30 [facility] HospitalUrine Cultureon 76-50-9576Cozhtdmc identified Cx Nom (U)No Growth 2 Days PERFORMED BY: [place] [address] PATHOLOGIST APARTMENT LEASING CONSULTANT AIMEE JUNIOR M.D.NormalMemorial Hospital Pembroke Physician GroupComment on above: Performed By: #### CUU #### [place] [address] USAUrine cultureOrdered By: Joaquin Aleman on 87-89-9958Dzqsoves identified Cx Nom (U)No Growth 2 DaysNorwalk Memorial HospitalCT abdomen pelvis w conon 97-91-9248KC abdomen pelvis w [facility] [place] [address] [place] [address] CT Scan Report Signed Patient: Oumar Cunningham MR#: [id number] : 1955 Acct:[id number] Age/Sex: 69 / F ADM Date: 12/10/24 Loc: CT Room: Type: [facility] Attending Dr: Haley Morrow MD Copies to: [...] 4:37 PM Dictation Location: RADIO-PC-18 Transcribed By: [facility] 12/10/24 1637 Dictated By: Kev Chavez Jr, DO 12/10/24 1634 Signed By: 12/10/24 [facility] Physician GroupOffice Visiton 18-30-6330Invoio- up [id number] Oumar Cunningham 1955 F Date Provider Department Center 05/08/2024 Tracee-DANIEL RIBEIRO [facility] Family History Problem Relation Age of Onset Anemia Mother Breast cancer Mother Diabetes Mother Hypertension Mother Hyperlipidemia Mother Coronary artery disease Father Diabetes Father Hypertension Father Hyperlipidemia Father Stroke Paternal Grandmother Coronary artery disease Paternal Grandmother Family Status - Relation Status Age at Mother Father Paternal Grandmother Level of Service:[address]954 [place] OFFICE/OUTPATIENT ESTABLISHED MOD [facility] 88-62-8058UrqodfhkyQszgzafol From: So Finley LPN To: GSN - Clinical; Sent: 04/23/2024 14:41:29 EDT Show up: 03/22/2034 07:00:00 EDT Subject: colonoscopy recall Due Date/Time: 04/22/2034 07:00:00 EDT Reminder/Recall Patient due for screening colonoscopy 04/22/2034.[facility] HospitalConsent for Procedure/Surgeryon 05-70-0032Vvcmqym for Procedure/Surgery [id number]#1.00TIFMarion HospitalFacesheeton 05-86-2606Sonogmtdv [id number]#1.00[facility] HospitalAmbulatory Visit Summaryon 14-00-2321Uibkgkojld Visit Summary OUMAR CUNNINGHAM :1955 Visit Date:03/10/2024 [...] you for choosing us for your care. [facility] HospitalRAD - Ultrasound Reporton 70-11-2709JDA - Ultrasound Report [id number]#1.00TIFMarion HospitalPhysician Referralon 48-40-3767Sovikqrjr Referral [id number]#1.00TIFMarion HospitalACTH, PLASMAon 23-95-2647KTHB, Elwajc72.7 pg/mLNormal7.2-63.3The [facility] CenterComment on above:Result Comment: ACTH reference interval for samples collected between 7 and 10 AM.Performed By: #### UAMIC #### [facility] [address] [address] [address] Annie RainCORTISOLoalexa 23-70-9882Ouwvpimi2.7 ug/dLNoSt. Mary's Medical Center Comment on above:Result Comment: Cortisol AM 6.2 - 19.4 Cortisol PM 2.3 - 11.9Performed By: #### CORTISO #### [facility] [address] [place] [address] Dr. Annie RainFSHoalexa 73-47-7221RWI70.8 mIU/mLNormalThe Christ HospitalComment on above:Result Comment: Adult Female: Follicular phase 3.5 - 12.5 Ovulation phase 4.7 - 21.5 Luteal phase 1.7 - 7.7 Postmenopausal 25.8 - 134.8Performed By: #### LBCFSH #### [facility] [address] [place] [address] Dr. Annie RainGROWTH HORMONEon 78-11-1172Gvcbuz Hormone, Serum1.5 ng/mLNormal 0.0-10.0The [facility] HospitalComment on above:Performed By: #### UAMIC #### [facility] [address] [place] [address] Dr. Annie RainXswxoXYPHXAB-DFBW-CFPWIN-FACTOR 1on 50-51-0342Suewzdt-Like Growth Factor I94 ng/sQZblvnn76-092Wtd [facility] CenterComment on above:Performed By: #### INSGF1 #### [place] [address] Dr[address] Annie RainLUTEINIZING HORMONE (LH)on 92-03-9033GQ30.1 mIU/mLNormalThe [facility] Medical CenterComment on above:Result Comment: Adult Female: Follicular phase 2.4 - 12.6 Ovulation phase 14.0 - 95.6 Luteal phase 1.0 - 11.4 Postmenopausal 7.7 - 58.5Performed By: #### LBCLH #### [facility] [address] [place] [address] Dr. Annie RainPROLACTINon 06-17-2066Xtshgmmwf0.4 ng/mLNormal4.8-23.3The [facility] CenterComment on above:Performed By: #### PROLAC #### [facility] [address] [place] [address] Dr. Annie RainFREE T4on 53-80-8576Ufvq T4 [Mass/Vol]1.01 ng/dLNormal0.76-1.46 The [facility] CenterComment on above:Performed By: #### FT4 #### [facility] [address] [place] [address] Dr. Annie RainPROF CHEM 8 (BAS METB)on 59-83-2619Rucqg gap [Moles/Vol]11.4 mmol/LNormalThe Al HospitalComment on above:Performed By: #### UAMIC #### [facility] [address] [address] [address] Annie RainCalcium [Mass/Vol]9.4 mg/dLNormal8.5-10.1[facility] Comment on above:Performed By: #### UAMIC #### [facility] [address] [address] [address] Annie RainChloride [Moles/Vol]105 mmol/NFejlbd99-620YngThe Christ Hospital Comment on above:Performed By: #### UAMIC #### [facility] [address] [address] [address] Annie RainCO2 [Moles/Vol]29.6 mmol/OYxjtlg00.0-32.0[facility] Comment on above:Performed By: #### UAMIC #### [facility] [address] [address] [address] Annie RainCreatinine [Mass/Vol]0.55 mg/dLNormal0.55-1.02The [facility] CenterComment on above:Performed By: #### UAMIC #### [facility] [address] [address] [address] Annie ChaneyGFR-AF CAMBODIAN>60Normal>=60The Christ HospitalComment on above:Performed By: #### UAMIC #### [facility] [address] [address] [address] Annie ChaneyGFR-NON AF CAMBODIAN>60Normal>=60The [facility] HospitalComment on above:Performed By: #### UAMIC #### [facility] [address] [address] [address] Annie RainGlucose [Mass/Vol]80 mg/uTRuedqf09-468NmsThe [facility] Hospital Comment on above:Performed By: #### UAMIC #### [facility] [address] [place] [address] Dr. Annie RainPotassium [Moles/Vol]4.0 mmol/LNormal3.5-5.1[facility] Comment on above:Performed By: #### UAMIC #### [facility] [address] [address] [address] Annie RainSodium [Moles/Vol]142 mmol/VOabdjn345-723Tyk [facility] Comment on above:Performed By: #### UAMIC #### [facility] [address] [place] [address] Dr. Annie RainUrea nitrogen [Mass/Vol]8.0 mg/dLNormal7.0-18.0The [facility] CenterComment on above:Performed By: #### UAMIC #### [facility] [address] [address] [address] Annie RainUrea nitrogen/Creatinine [Mass ratio]14.5 mg/mgNoSt. Mary's Medical CenterComment on above:Performed By: #### UAMIC #### [facility] [address] [place] [address] Dr. Annie Mtz 86-59-1877MFK3.404 uIU/mLNormal0.358-3.740The Christ HospitalComment on above:Performed By: #### UAMIC #### [facility] [address] [place] [address] Dr. Annie RainXR LSPINE MIN 4 VIEWSon 93-70-3905KL LSPINE MIN 4 VIEWSEXAM: XR LSPINE MIN 4 VIEWS EXAMINATION: XR LSPINE MIN 4 VIEWS HISTORY: Lumbar radiculopathy COMPARISON: 02/03/2019 FINDINGS: BONES: 2 mm anterolisthesis of L4 in relation L5. Mild spondylosis. Moderate to severe facet osteoarthropathy DISC SPACES: Multilevel disc space narrowing PARASPINOUS: Negative. No paraspinous abnormality is seen. OTHER: Vascular calcifications IMPRESSION: Degenerative changes Electronically authenticated by: YENI RUST Date: 2022-08-27 07:31[facility] CenterMRI BRAIN WO W CONon 87-86-9866LKU BRAIN WO W CONEXAMINATION: MRI BRAIN WO [...] Electronically authenticated by: SOHAM HO Date: 2022-08-15 22:51NormMartins Ferry HospitalCREATININEon 77-08-8317Ffmwyemcit [Mass/Vol]0.62 mg/dLNormal 0.55-1.02The [facility] Hospitalment on above:Performed By: #### CREA #### [facility] [address] [place] [address] Dr. Annie ChaneyGFR-AF CAMBODIAN>60Normal>=60The [facility] on above:Performed By: #### CREA #### [facility] [address] [place] [address] Dr. Annie ChaneyGFR-NON AF CAMBODIAN>60Normal>=60[facility] on above:Performed By: #### CREA #### [facility] [address] [place] [address] Dr. Annie RainCT ABD/PELVIS WO CONon 35-63-6565BH ABD/PELVIS WO CONEXAMINATION: CT ABD/PELVIS WO CON, [...] Electronically authenticated by: YENI RUST Date: 2022-06-25 13:[address] [place] [address] HEAD WO CONon 48-61-2333JF HEAD WO CONEXAMINATION: CT HEAD WO CON [...] Electronically authenticated by: PABLO MILLER Date: 2022-06-25 13:56NormMartins Ferry HospitalCULTURE URINEon 59-59-1543KVHONCY URINECulture Observations: LIGHT GROWTH OF MIXED GENITAL SILAS. NO POTENTIAL PATHOGENS SEEN.NormalThe [facility] CenterComment on above:Performed By: #### INSGF1 #### [facility] [address] [place] [address] Dr. Annie Nuñez RANDOM W/MICROSCOPICon 29-79-0017PBUQDCBBEDWZ SEENNormalNONE SEENThe Christ HospitalComment on above:Performed By: #### UAMIC #### [facility] [address] [place] [address] Dr. Annie Gar Ql (U)NegativeNormalNEGATIVEThe [facility] Comment on above:Performed By: #### UAMIC #### [facility] [address] [place] [address] Dr. Annie RainCASTSHERRILL SEENNormalNONE SEENThe Christ HospitalComment on above:Performed By: #### UAMIC #### [facility] [address] [place] [address] Dr. Annie Vincent (U)CLEARNormalCLEARThe Christ HospitalComment on above: Performed By: #### UAMIC #### [facility] [address] [place] [address] Dr. Annie Greco (U)YELLOWNormalYELLOWThe Christ HospitalComment on above: Performed By: #### UAMIC #### [facility] [address] [place] [address] Dr. Annie Pinedaystals LM Nom (Urine sed)NONE SEENNormalNONE SEENThe Christ HospitalComment on above:Performed By: #### UAMIC #### [facility] [address] [place] [address] Dr. Valencia ChangEpithelial cells LM Ql (Urine sed)RARENormalNONE SEEN /RAREThe [facility] CenterComment on above:Performed By: #### UAMIC #### [facility] [address] [place] [address] Dr. Annie RainGlucose Ql (U)NegativeNormalNEGATIVEThe Christ HospitalComment on above:Performed By: #### UAMIC #### [facility] [address] [place] [address] Dr. Annie RainHemoglobin Ql (U)SMALLAbnormalNEGATIVEUniversity Hospitals Geauga Medical Center on above:Performed By: #### UAMIC #### [facility] [address] [place] [address] Dr. Annie RainKetones Ql (U)TRACEAbnormalNEGATIVEThe Christ HospitalComment on above:Performed By: #### UAMIC #### [facility] [address] [place] [address] Dr. Annie RainLEUKOCYTESNegativeNormalNEGATIVEThe Christ HospitalComment on above:Performed By: #### UAMIC #### [facility] [address] [place] [address] Dr. Annie RainMUCOUSNONE SEENNormalNONE SEENThe Christ HospitalComment on above:Performed By: #### UAMIC #### [facility] [address] [place] [address] Dr. Annie Clarktrite Ql (U)NegativeNormalNEGATIVEThe Christ HospitalComment on above:Performed By: #### UAMIC #### [facility] [address] [place] [address] Dr. Annie RainpH (U)6.5 [pH]Normal5-9The [facility] CenterComment on above: Performed By: #### UAMIC #### [facility] [address] [place] [address] Dr. Annie RainTjiqkBTQ4-6Biwwsaha6-2Qop [facility] CenterComment on above:Performed By: #### UAMIC #### [facility] [address] [place] [address] Dr. Annie RainSPEC GRAVITY1.529Zsevdf9.005-<=1.025The [facility] CenterComment on above:Performed By: #### UAMIC #### [facility] [address] [place] [address] Dr. Annie Nuñez PROTEINNegativeNormalNEGATIVE/ TRACEThe [facility] Comment on above:Performed By: #### UAMIC #### [facility] [address] [place] [address] Dr. Annie RainUrobilinogen Qn (U)1.0 {Willam'U}/dLNormal0.2 - 1.0The [facility] CenterComment on above:Performed By: #### UAMIC #### [facility] [address] [place] [address] Dr. Annie RainWBC0-2AbnormalNONE SEENThe [facility] CenterComment on above: Performed By: #### UAMIC #### [facility] [address] [place] [address] Dr. Annie RainCT CHEST WO CONon 02-58-1332QL CHEST WO CONEXAMINATION: CT CHEST WO CON [...] authenticated by: YENI RUST Date: 2022-06-08 13:10NormalThe [facility] HospitalCULTURE URINEon 23-05-1305LQVKBKR URINECulture Observations: NO GROWTH.NormalThe Christ HospitalComment on above:Performed By: #### INSGF1 #### [facility] [address] [place] [address] Dr. Annie Nuñez RANDOM W/MICROSCOPICon 03-19-2156GZDTXDNWMEFFVThlwmhvuVLXO SEENThe Christ HospitalComment on above:Performed By: #### UAMIC #### [facility] [address] [place] [address] Dr. Annie Gar Ql (U)NegativeNormalNEGATIVEThe [facility] Comment on above:Performed By: #### UAMIC #### [facility] [address] [place] [address] Dr. Annie White SEENNormalNONE SEENThe Christ HospitalComment on above:Performed By: #### UAMIC #### [facility] [address] [place] [address] Dr. Annie Vincent (U)CLEARNormalCLEARThe Christ HospitalComment on above: Performed By: #### UAMIC #### [facility] [address] [place] [address] Dr. Annie Greco (U)LT. YELLOWNormalYELLOWThe Christ HospitalComment on above:Performed By: #### UAMIC #### [facility] [address] [place] [address] Dr. Annie Villatoro LM Nom (Urine sed)NONE SEENNormalNONE SEENThe Christ HospitalComment on above:Performed By: #### UAMIC #### [facility] [address] [address] [address] Valencia ChangEpithelial cells LM Ql (Urine sed)RARENormalNONE SEEN /RAREThe [facility] CenterComment on above:Performed By: #### UAMIC #### [facility] [address] [place] [address] Dr. Annie RainGlucose Ql (U)NegativeNormalNEGATIVEThe Christ HospitalComment on above:Performed By: #### UAMIC #### [facility] [address] [place] [address] Dr. Annie RainHemoglobin Ql (U)NegativeNormalNEGATIVEUniversity Hospitals Geauga Medical Center on above:Performed By: #### UAMIC #### [facility] [address] [place] [address] Dr. Annie RainKetones Ql (U)NegativeNormalNEGATIVEThe Christ HospitalComment on above:Performed By: #### UAMIC #### [facility] [address] [place] [address] Dr. Annie RainLEUKOCYTESNegativeNormalNEGATIVEThe Christ HospitalComment on above:Performed By: #### UAMIC #### [facility] [address] [place] [address] Dr. Annie RainMUCOUSNONE SEENNormalNONE SEENThe Christ HospitalComment on above:Performed By: #### UAMIC #### [facility] [address] [place] [address] Dr. Annie RainNitrite Ql (U)NegativeNormalNEGATIVEThe Christ HospitalComment on above:Performed By: #### UAMIC #### [facility] [address] [place] [address] Dr. Annie RainpH (U)6.0 [pH]Normal5-9The [facility] CenterComment on above: Performed By: #### UAMIC #### [facility] [address] [place] [address] Dr. Annie RainSviyoAWS6-7Ztspfs6-6Cnh [facility] CenterComment on above:Performed By: #### UAMIC #### [facility] [address] [place] [address] Dr. Annie RainSPEC GRAVITY<=1.883Rgmfrzaj2.005-<=1.025The [facility] Comment on above:Performed By: #### UAMIC #### [facility] [address] [place] [address] Dr. Annie RainUA PROTEINNegativeNormalNEGATIVE/ TRACEThe [facility] Comment on above:Performed By: #### UAMIC #### [facility] [address] [place] [address] Dr. Annie RainUrobilinogen Qn (U)0.2 {Willam'U}/dLNormal0.2 - 1.0The [facility] CenterComment on above:Performed By: #### UAMIC #### [facility] [address] [place] [address] Dr. Annie RainWBC0-2AbnormalNONE SEENThe [facility] CenterComment on above: Performed By: #### UAMIC #### [facility] [address] [place] [address] Dr. Annie RainCovid-19 PCR (CVDTB)on 74-84-6586AMPU-CoV-2 (COVID-19) RNA GREGOR+probe Ql (Unsp spec)DetectedCritically abnormalNOT DETECTEDThe [facility] CenterComment on above:Result Comment: This test is not yet approved or cleared by the [place] FDA. When there are no FDA-approved or cleared tests available, and other criteria are met, FDA can make tests available under an emergency access mechanism called an Emergency Use Authorization (EUA). The EUA for this test is supported by the [place] of Health and Human Service's declaration that [...] longer be used).Performed By: #### INSGF1 #### [facility] [address] [address] [address] [facility] W CONon 88-16-7972EEL BRAIN WO W CON Begin Addendum #1 [...] no prior studies available for comparison.Normal The [facility] CenterBUNon 37-71-1591Rohf nitrogen [Mass/Vol]13.0 mg/dLNormal 7.0-18.0The [facility] CenterComment on above:Performed By: #### CRETee BUN #### [facility] [address] [address] [address] Annie RainCREATININEon 05-06-2340Uzhyiepqoh [Mass/Vol]0.70 mg/dLNormal 0.55-1.02The [facility] CenterComment on above:Performed By: #### INSGF1 #### [facility] [address] [place] [address] Dr. Annie ChaneyGFR-AF CAMBODIAN>60Normal>=60The [facility] CenterComment on above:Performed By: #### INSGF1 #### [facility] [address] [address] [address] Annie ChaneyGFR-NON AF CAMBODIAN>60Normal>=60The [facility] CenterComment on above:Performed By: #### INSGF1 #### [facility] [address] [address] [address] Annie Rain head/brain wo/w conon 09-82-0736IP head/brain wo/w con [facility] [address] MRI Report Signed Patient: Oumar Cunningham MR#: [id number] 53 : 1955 Acct:[id number] Age/Sex: 65 / F ADM Date: 11/07/20 Loc: MR Room: Type: [facility] Attending Dr: Soham Woodson MD Ordering Provider: [...] M.D.11/08/2020 11:48 AM Dictation Location: [place] [address] Transcribed By: [facility] 11/08/20 1148 Dictated By: Remberto Coulter II, MD 11/08/20 1135 Signed By: 11/08/20 1148[facility] CenterISTAT XRay CREon 11-07-2020 Creatinine [Mass/Vol]0.6 mg/dLNormal0.6-1.3FKnox Community Hospital Comment on above:Result Comment: ER/ESD physician is notified/shown all ISTAT results. Critical values may be confirmed by laboratory testing if deemed necessary by ER attending doctor.Performed By: #### ISCRE #### [address] Point of Care testing ,ISTAT GFR (> 60NormMercy Health St. Rita's Medical CenterComment on above:Result Comment: GFR estimated reference range: According to KDOQI guidelines, <60 ml/min/1.73m2 is sufficient to diagnose a patient with chronic kidney disease. PERFORMED BY: [place] [address] PATHOLOGIST APARTMENT LEASING CONSULTANT MARK SERRATO M.D.Performed By: #### ISCRE #### [facility] [address] [place] [address] Point of Care testing ,ISTAT GFR (Non- Am> 60NoUniversity Hospitals Geneva Medical CenterComment on above:Performed By: #### ISCRE #### [address] Point of Care testing , Vital Signs Date TimeVital SignValuePerforming TgojhyfbmPjnnucrx11-32-5686 13:30-0500Body shuvlh428.6 Sd Cifuentes MD Work Phone: [phone] [place] [address]-05-2025 13:30-0500Body mass index (BMI) [Ratio]26.09 kg/f5JxcrrKameron Cifuentes MD Work Phone: [phone] [address]-05-2025 13:30-0500Body ypxmhz49.95 kgKameron Cifuentes MD Work Phone: [phone] [address]-05-2025 13:30-0500Diastolic blood mm[Hg]Kameron Cifuentes MD Work Phone: [phone] [address]-05-2025 13:30-0500Heart rate68 /min Kameron Cifuentes MD Work Phone: [phone] [place] [address]-05-2025 13:30-0500Respiratory rate16 /minKameron Cifuentes MD Work Phone: [phone] [place] [address]-05-2025 13:30-1202NsR7% (BldA) [Mass fraction]98 %Kameron Cifuentes MD Work Phone: [phone] [place] [address]-05-2025 13:30-0500Systolic blood jopkmett612 mm[Hg]Kameron Cifuentes MD Work Phone: [facility] SystemsEikjcjdgjc51-84-1670 09:40-0400Diastolic blood gmtkrvna70 mm[Hg]Joaquin Aleman MD Work Phone: [phone]09-24-2025 09:40-0400 Heart rate62 /Lindsay Aleman MD Work Phone: [phone] [place], [place] [address]-24-2025 09:40-0400 Respiratory rate16 /Lindsay Aleman MD Work Phone: [phone] [place], [place] [address]808109-24-2025 09:40-0400 SaO2% (BldA) [Mass fraction]99 %Joaquin Aleman MD Work Phone: [phone] [place], [place] [address]109-24-2025 09:40-0400 Systolic blood qdnnazen396 mm[Hg]Joaquin Aleman MD Work Phone: [phone] [place], [place] [address]109-24-2025 07:15-0400 Body wijotc057.56 cmJoaquin Aleman MD Work Phone: [phone] [place], [place] [address]109-24-2025 07:15-0400 Body cmsphy16.67 kgJoaquin Aleman MD Work Phone: [phone] [place], [place] 8808108-20-2025 13:04-0400 Body zynukr032.56 cmJoaquin Aleman MD Work Phone: [phone] [place], [place] 8808108-20-2025 13:04-0400 Body mass index (BMI) [Ratio]26.4 kg/j5XqyzngrJoaquin Aleman MD Work Phone: [phone])[address] [place], [place] 8[address]108-20-2025 13:04-0400 Body .85 kgJoaquin Aleman MD Work Phone: [phone] [place], [place] 8808103-06-2025 11:14-0500 Body svkzuf269.56 cmJoaquin Aleman MD Work Phone: [phone] [place], [place] 8808103-06-2025 11:14-0500 Body mass index (BMI) [Ratio]26.4 kg/g4TqcveycJoaquin Aleman MD Work Phone: [facility]03-06-2025 11:14-0500 Body dhikhi32.93 kgJoaquin Aleman MD Work Phone: [phone]09-05-2024 14:13-0400 Body nalsol038.6 cmAkevon Schmid PA Work Phone: [phone] SystemsGezoqxikic00-49-4839 14:13-0400Body mass index (BMI) [Ratio]26.26 kg/m2Layla JAIME Work Phone: [phone] SystemsYhgnvmgazh52-57-6430 14:13-0400Body fiddin41.4 kg Lyala JAIME Work Phone: [phone] SystemsLqfprciyyw90-77-5348 14:13-0400Diastolic blood swwewynn87 mm[Hg]Layla JAIME Work Phone: [phone] SystemsJegffkalez73-79-6170 14:13-0400Heart rate69 /min Layla JAIME Work Phone: [facility] SystemsPnqvchmbmy93-35-0803 14:13-0400Respiratory rate16 /minLayla Schmid PA Work Phone: [facility] SystemsXicckpleeg06-85-5783 14:13-7873EdN4% (BldA) [Mass fraction]96 %Layla JAIME Work Phone: [facility] SystemsNjrkbambxc74-19-4166 14:13-0400Systolic blood qaeoyuzc096 mm[Hg]Layla JAIME Work Phone: [facility] SystemsZwgqptcfzs05-70-8055 14:14-0400Blood Pressure LocationMichael NILL [phone]-UjaqsKettering Health [facility]burg06-25-2024 14:14-0400Diastolic blood tfgergia49 mm[Hg]Pablo NILL [phone]-MohqkKettering Health [facility]burg06-25-2024 14:14-0400Heart rate72 /minMichael NILL [phone]-OulgsSt. Anthony'S Hospitalue06-25-2024 14:14-0400Respiratory rate16 /minMichael NILL [phone]-VpborSt. Anthony'S Hospitalue06-25-2024 14:14-0400Systolic blood fleotexk064 mm[Hg]Pablo NILL [phone]-GjyheSt. Anthony'S Hospitalue08-04-2022 12:15-0400Body hznuns500.56 cmRobert Catron II Other [employer] Other 08-04-2022 12:15-0400Body mass index (BMI) [Ratio] 27.46 kg/s4Wyjyza Sorin II Other [employer] Other 08-04-2022 12:15-0400Body jirqzl18.58 kgRobert Sorin II Other [employer] Other 05-05-2022 10:15-0400Body imhvoi008.56 cmRobert Catron II Other [employer] Other 05-05-2022 10:15-0400Body mass index (BMI) [Ratio] 27.98 kg/p0Gddxxf Catron II Other [employer] Other 05-05-2022 10:15-0400Body viqctr87.94 kgRobert Sorin II Other [employer] Other 04-20-2022 12:45-0400Body qhtpca313.56 cmRobert Catron II Other [employer] Other 04-20-2022 12:45-0400Body mass index (BMI) [Ratio] 27.98 kg/s1Glsltn Sorin II Other [employer] Other 04-20-2022 12:45-0400Body kdyowf93.94 kgRobert Catron II Other [employer] Other 12-30-2021 10:00-0500Body .56 cmRobert Catron II Other [employer] Other 12-30-2021 10:00-0500Body mass index (BMI) [Ratio] 27.63 kg/r4Swndvt Sorin II Other [employer] Other 12-30-2021 10:00-0500Body vntlec32.03 kgRobert Catron II Other [employer] Other Encounters Encounter DateEncounter TypeCare ProviderFacilityStart: 07-21-2025 End: 80-80-3415Bztxnvwilliam Cifuentes MD Work Phone: [facility]oms [facility] EndocrinologyStart: 07-21-2025 End: 97-59-7450Xzrvzdstephen Cifuentes MD Work Phone: [facility] Liz EndocrinologyStart: 07-21-2025 End: 92-68-0107Ugykye outpatient visit 25 minutesKameron Cifuentes MD Work Phone: noms Liz EndocrinologyComment on above:Low TSH level (Primary Dx); Rathke's cleft cyst (HCC)Start: 07-21-2025 End: 68-58-0664xolmilmfxhBFJVUJovita Zavala AvailableStart: 06-09-2025 End: 52-74-5570jnvtjtnwbjNxci AsaadFacility:[facility] Start: 87-33-4519Tyd-patient / Non-visitHaley Morrow MD-[facility] Work Phone: Start: 05-11-2025 End: 40-21-7510Jfosrcgmxy OrdersHaley Morrow MD Work Phone: Referring PhysicianComment on above:Low TSH level (Primary Dx)Start: 05-05-2025 End: 96-91-9739nnutdupcodEpjbzmt M Hoy MD Work Phone: [facility] Work Phone: Start: 05-05-2025 End: 90-92-2711Bpbhwbz encounter procedureHaley Morrow MD-[facility] Work Phone: Start: 04-19-2025 End: 95-43-4531vmqsnczlmhUOIVTF [facility] Start: 04-01-2025 End: 40-31-0553uhjlctwhjnKntlcrr M [facility] Work Phone: Start: 04-01-2025 End: 42-87-8910Vaebroaa ReferredJoaquin Reyna MD-[facility] Start: 12-10-2024 End: 05-11-3878Qpaqots encounter procedureJoaquin Aleman MD Work Phone: [facility]-CT Scan [place] Work Phone: Start: 12-10-2024 End: 46-40-7660zuicplryraQvwpkgh M Hoy MD Work Phone: [facility] Work Phone: Start: 11-19-2024 End: 37-01-6513Sdqlbue encounter Nehemiah Aleman MD Work Phone: [facility] Work Phone: Start: 05-21-2024 End: 04-13-0529Gkwime [facility] Work Phone: [facility] STATE ROUTEStart: 05-21-2024 End: 42-10-3179Xptqhd flowsheetLayla Binu JAIME Work Phone: [facility] [place] STATE ROUTEStart: 05-21-2024 End: 11-77-1706Ergwjj outpatient visit 25 Jayden Binu JAIME Work Phone: noms REST[place] STATE ROUTEComment on above: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); Dizziness; Migraine without aura and without status migrainosus, not intractable (CMS/HCC); Memory changeStart: 05-08-2024 End: 94-33-1026wzrztfeujcLXDLBR [facility] Start: 04-22-2024 End: 08-13-9809nlxwreenesUhopurm R NILLFacility:CD:[id number]: 03-10-2024 End: 55-63-0804nrobpnojavDgtiage HoyFacility: BellevueStart: 03-10-2024 End: 13-99-0357Fhqhnpb encounter procedureMichael R NILL [phone]-Dqiru [facility] Start: 10-29-2022 End: 24-19-0345crrmvosehqAYFLH SABBAGHFacility:Y7Onlmi: 05-17-5742bbazceovwmEV JOAQUIN HOYFacility:P3Ulbif: 08-24-2022 End: 03-93-2949wlbaiuhleaND JOAQUIN HOYFacility:Q5Dfldn: 08-15-2022 End: 61-34-2944vycawokeekPU JOAQUIN HOYFacility:Q5Osngj: 06-25-2022 End: 62-64-2221hmgsqdtpwtCHQUBL RODRIGUEZFacility:C5Tujyk: 06-20-2022 End: 45-14-4193ektnekmnojEL JOAQUIN HOYFacility:M1Ppfvm: 06-08-2022 End: 74-01-9875hdjzmgyshpMK JOAQUIN HOYFacility:L6Kivde: 05-30-2022 End: 67-24-0129fuhhnxbxfsOM JOAQUIN HOYFacility:I3Xpnrh: 04-19-2022 End: 73-00-0115qajkybsbypSpuhis Catron II Other [employer] Other Start: 97-66-6442Pivlrn outpatient visit 25 minutes Nichelle BRAGGG Liz OrthopedicsStart: 04-03-2022 End: 51-48-3268hfyuqgktxqFX JOAQUIN HOYFacility:G0Hqzkz: 02-05-2022 End: 72-58-3509iakspznmahGIZZ LACOURFacility:O6Hmsom: 01-29-2022 End: 03-58-2517wpnsrtgzmeUBRPZN CARLISLEFacility:J5Eiqml: 01-18-2022 End: 46-42-4806vbsqrrvyxbLridyf Catron II Other [employer] Other Start: 10-37-3682Icvphn outpatient visit 25 minutes Nichelle BRAGGG Liz OrthopedicsStart: 01-03-2022 End: 68-74-0646vsjcrmzrltBkkabz Catron II Other [employer] Other Start: 60-25-9497Mhpcrd outpatient visit 15 minutes Nichelle BRAGGG Liz OrthopedicsStart: 09-14-2021 End: 98-18-0090xpqsizbwhmJybymt Catron II Other [employer] Other Start: 77-16-3347Jhitrc outpatient new 30 minutes [address] [place] IIFPG [facility] Procedures DateProcedureProcedure DetailPerforming ClinicianStart: 14-36-0748Umwwa culture Joaquin Aleman MD Work Phone: Start: 81-23-1357Kxxfokhp tomography of abdomen and pelvis with contrastJoaquin Aleman MD Work Phone: Start: 97-04-7774NrlameidstxQggtgia NILL Start: 70-47-8090AfhjzpauxsonznlfodtyVtkisos NILL Comment on above:with biopsyStart: 01-22-2006 EsophagogastroduodenoscopyMichael NILL Start: 67-71-5241GyiqokuqnwaTxvcrri NILL Abdominal hysterectomyMichael NILL Bilateral salpingectomy with oophorectomyMichael NILL History of subtotal thyroidectomyMichael NILL Plan of Treatment DateCare ActivityDetailAuthorStart: 08-11-2025 End: 06-15-5228Cwyhrmr encounter xwnyqjfuc42/26/2025 2:00 PM EST Office Visit [facility] [address] [place] [id number] Kameron Cifuentes MD [address] [place] [address] [facility] EndocrinologyStart: 07-21-2025 End: 96-85-4760Dvtynrninjcnm AntibodyThyroglobulin Antibody Lab Routine Low TSH level Expected: 07/21/2025 (Approximate), Expires: 07/21/2026[facility] Work Phone: Comment on above:Expected: 07/21/2025 (Approximate), Expires: 07/21/2026Start: 07-21-2025 End: 78-85-3269Giltzrd peroxidase antibodyThyroid peroxidase antibody Lab Routine Low TSH level Expected: 07/21/2025 (Approximate), Expires: 07/21/2026 [facility] HealthcareComment on above:Expected: 07/21/2025 (Approximate), Expires: 07/21/2026Start: 07-21-2025 End: 48-54-1934Ziihrgkhajk [Units/volume] in Serum or PlasmaTSH Lab Routine Low TSH level Expected: 07/21/2025 (Approximate), Expires: 07/21/2026[facility] Comment on above:Expected: 07/21/2025 (Approximate), Expires: 07/21/2026Start: 07-21-2025 End: 89-54-0935Ywjyxbnqgai receptor antibodyThyrotropin receptor antibody Lab Routine Low TSH level Expected: 07/21/2025 (Approximate), Expires: 07/21/2026 [facility] HealthcareComment on above:Expected: 07/21/2025 (Approximate), Expires: 07/21/2026Start: 07-21-2025 End: 94-06-7200Fhmskopdg (T4) free [Mass/volume] in Serum or PlasmaT4, free Lab Routine Low TSH level Expected: 07/21/2025 (Approximate), Expires: 07/21/2026 [facility] HealthcareComment on above:Expected: 07/21/2025 (Approximate), Expires: 07/21/2026Start: 07-21-2025 End: 50-53-7036Kjczhdnmtukixtjl (T3) Free [Mass/volume] in Serum or PlasmaT3, free Lab Routine Low TSH level Expected: 07/21/2025 (Approximate), Expires: 07/21/2026[facility] [facility] HealthcareComment on above:Expected: 07/21/2025 (Approximate), Expires: 07/21/2026Start: 07-21-2025 End: 04-91-3899AP Thyroid glandUS thyroid Imaging Routine Low TSH level Expected: 07/21/2025, Expires: 07/21/2026[facility] HealthcareComment on above: Expected: 07/21/2025, Expires: 07/21/2026Start: 07-21-2025 End: 55-66-2455Kvufllu encounter yturvwzhy96/05/2025 1:40 PM EST Office [facility] [address] [place] [address] Kameron Cifuentes MD [address] [place] [address] ArrivedNOMS Montero EndocrinologyComment on above:ArrivedStart: 29-68-6826JihiwzvjaSelect Medical Specialty Hospital - Columbustart: 55-13-0305Crvryst referralSumma Health Akron Campus Work Phone: Start: 43-64-4576Ckozn cultureSelect Medical Specialty Hospital - Columbustart: 89-80-0781Djhwnqyj identified in Urine by CultureUrine CultureSelect Medical Specialty Hospital - Columbustart: 08-12-2024 End: 16-97-9423Ocmahqz encounter anelusihn34/27/2024 1:00 PM EST Office Visit [facility] [address] [place] [address] Layla Schmid PA [address] [place] [address] [facility] R[facility]TEStart: 05-21-2024 End: 51-74-2195Agvlztl encounter /05/2024 2:00 PM EDT Office Visit [facility] [place] [address] [place] [address] Layla Schmid PA [address] [place] [address] ArrivedNOKINDRED [facility] LIMA ROUTEComment on above: ArrivedComprehensive metabolic 2000 panel - Serum or PlasmaNorwalk Memorial HospitalPatient EducationHemorrhoids Gastritis Omeprazole Know your MedTrinity Health System Work Phone: Patient referralSumma Health Akron Campus Work Phone: [facility] Immunizations Immunization DateImmunizationNotesCare ProviderFacilityNEGATED: Highlighted row has not occurred!79-80-7121ancqbcmpb virus vaccine, unspecified formulation Pablo VALENCIA [phone]-Grvdo General Surgery [facility]aconess HospitalueComment on above: Result Comment: Will consult with primary care physician Payers DatePayer CategoryPayerPolicy [id number]-pay2022Medicaid [id number] 2022Medicare [id number] [id number] [id number] 2.160.4.335474.7782-01-1960 [id number] 2.0.1.97123[id number] 2.0.1.409645.3.57[id number] 2.0.1.894220.3.57[id number] 2.840.1.502088.3.57[id number] 2.0.1.485440.3.57[id number] 2.840.1.881888.3.57[id number] 2.160.1.917992.3.57[id number] 2.16840.1.835425.3.57[id number] 2.840.1.057285.3.57[id number] 2.16840.1.267522.3.57[id number] 2.840.1.813774.3.57[id number] 2.840.1.898910.3.57[id number] 2..840.1.158383.3.57[id number] 2..0.1.727978.3.57[id number] 2.16.840.1.32[id number] 2..840.1.822091.3.579.2.531 [id number] 2.840.1.9[id number] 2..840.1.744209.3.579.2.531 Social History DateTypeDetailFacilityStart: 39-22-1318Was Assigned At BirthMercy Health Willard Hospitaltart: 03-10-2024 End: 41-66-1887Eqmmqzd smoking statusEx-smoker (finding)[facility] Centertart: 02-08-2016 End: 60-69-9664Sdwwqbt smoking statusNeverKettering Health Miamisburg History of tobacco useCurrent smokerNOMS HealthcareHistory of tobacco use Cigarette SmokerNOMS HealthcareStart: 04-15-2024 End: 45-14-6767Hirubncex beverage intakeLifetime non-drinker (finding)[facility] HealthcareStart: 53-34-3156Kkzgxgr of Social functionNOMS HealthcareStart: 72-44-6499Ggu assigned at birthNot on fileNOMS HealthcareStart: 94-19-9563Pff Female (finding)[facility] Columbustart: 00-35-2173Qds Assigned At BirthFeMercy Health Defiance HospitalTobacco smoking status NHIS Tobacco smoking consumption unknownFirelands Regional Medical Center South Campus Functional Status DfcoKmcgzdmbggSgztngRfqxosnj51-28-2728Swpksbdzoo StatusN/AFSelect Medical Specialty Hospital - [facility] Northevue Clinical Notes 09-14-2021 to 07-21-2025 Note Date & QvodEezpOqtwwskc21-73-2286 History of Present illness Narrative* Kameron Cifuentes [...] SURGERY OOPHORECTOMY THYROID SURGERY documented in this encounterPemiscot Memorial Health SystemsYyjiixavti59-24-8169 Evaluation note* Author Haley Morrow [facility] HospitalAuthoredAunor-lea general hospitalorlando 2024 1:13pm69 y/o female referred to the GI clinic for evaluation of LLQ and RUQ pain. + lower abdominal pain nausea vomiting and diarrhea for last few months. TSH is 0.274. CBC CMP fecal calprotectin HIV celiac panel were unremarkable CT abdomen/pelvis on 12/10/2024 was unremarkable Will arrange for EGD/colonoscopy. Will refer to endocrinology for evaluation of low TSH [facility] Work Phone: 1(120) 174-215408-04-2025 NoteUT Cardiology - [facility] Subjective Oumar Cunningham is a [...] under the tongue every (more content not included)...[facility] 02-02-2025 Evaluation note* Author Imad [facility]ermont County HospitalAuthoredAugust 2024 1:13pm69 y/o female referred to the GI clinic for evaluation of LLQ and RUQ pain. + lower abdominal pain nausea vomiting and diarrhea for last few months. TSH is 0.274. CBC CMP fecal calprotectin HIV celiac panel were unremarkable CT abdomen/pelvis on 12/10/2024 was unremarkable Will arrange for EGD/colonoscopy. Will refer to endocrinology for evaluation of low TSH [facility] Work Phone: 1(781) 470-430803-27-2025 Radiology Diagnostic study noteCLEVELAND CLIN[facility] [place] [address] [place] [address] CT Scan Report Signed Patient: Oumar Cunningham MR#: [id number] : 1955 Acct:[id number] Age/Sex: 69 / F ADM Date: 5 Loc: CT Room: Type: [facility] Attending Dr: Haley Morrow MD Copies to: [...] Chavez Jr., D.OBob12/10/2024 4:37 PM Dictation Location: [facility]-18 Transcribed By: [facility] 12/10/24 1637 Dictated By: Kev Chavez Jr, DO 12/10/24 1634 Signed By: 12/10/24 1637 [facility]03-06-2025 Evaluation note* Author Haley Morrow [facility] HospitalAuthoredMar 2024 12:35pm69 y/o female referred to the GI clinic for evaluation of LLQ and RUQ pain. + lower abdominal pain nausea vomiting and diarrhea for last few months. -Will check CBC CMP, TSH, ESR, CRP, fecal calprotectin HIV ab, Celiac panel, fecal elastase and stool infectious workup -Will arrange for CT abdomen/pelvis. -Will arrange for EGD/colonoscopy. [facility] Work Phone: 1(841) 452-184908-23-2024 NoteUT Cardiology - [facility] Subjective Oumar Cunningham is a [...] mg SL table (more content not included)... [facility]06-28-2024 NoteGeneral Surgery Office/Clinic Note Chief Complaint consultation [...] gastritis Anxiety Bilateral lo (more content not included)...[facility] HospitalComment on above:Result Comment: Electronically Signed By: ERIK SMALLWOOD, Pablo Workman\Date and Time Signed: 03/13/24 10:51 [id number] NotePROCEDURE: CT CSPINE WO CON COMPARISON: None. [...] Electronically authenticated by: YENI RUST Date: 2022-06-25 13:55[facility]10-10-2022 NotePROCEDURE: XR HAND LT MIN 3V [...] Electronically authenticated by: SOHAM HO Date: 2022-06-25 13:49[facility]08-04-2022 Evaluation note* Encounter Date Diagnosis Assessment [...] we will get a lumbar spine x-ray. [employer] Other 05-05-2022 Evaluation note* Encounter Date Diagnosis [...] a viscosupplementation. 6. Follow up 3 months [employer] Other 04-20-2022 Evaluation note* Encounter Date Diagnosis [...] knee compared to a partial knee replacement. [employer] Other 12-30-2021 Evaluation note* Encounter Date Diagnosis [...] this well. 5. 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 Dizziness Dizziness and giddiness Migraine without aura and without status migrainosus, not intractable (CMS/HCC) Memory change Memory loss documented in this encounter [facility] HealthcareEvaluation noteNo assessment information availableOur Lady Of [facility] Work Phone: Evaluation note* Diagnosis Low TSH level- Primary Nonspecific abnormal results of thyroid function study documented in this encounter [facility] CampusEvaluation note* Diagnosis Low TSH level- Primary 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 Discharge instructionsAmbulatory Orders* Referral to Endocrinology Time Frame: 05/05/25, Location: None [facility] Work Phone: Hospital Discharge instructions [...] NOT operate machinery such as power tools, [employer] mowers, snow blowers, sewing machines, etc. for [...] up in the office - Office number [phone]. [facility] Work Phone: Progress note No data available for this section [facility] [place] Reason for referral (narrative)No reason for referral information availableOur Lady Of [facility] Work Phone: Summary Purpose Family History No [...] 11:1 1am Alternating constipation and diarrhea [facility] 2024 11:11am Bloating November 19, 2024 [...] section and content) DATE CREATED AUTHOR 11/12/2020 [facility] DATE CREATED AUTHOR AUTHOR'S ORGANIZ ATION 11/03/2022 [facility] DATE CREATED AUTHOR AUTHOR'S ORGANIZ ATION 05/01/2024 [facility] DATE CREATED AUTHOR AUTHOR'S ORGANIZ ATION 04/21/2025 [facility] DATE CREATED AUTHOR AUTHOR'S ORGANIZ ATION 06/18/2025 [facility] DATE CREATED AUTHOR AUTHOR'S ORGANIZ ATION 07/23/2025 [facility] EPIC REASON FOR VISIT (unrecogniz [...] May 05, 2025 End: May 05, 2025DoKarina Rutledgecrenshaw community hospitalmyra [facility] ProviderActiveStart: May 05, 2025 End: May 05, 2025Team MemberRelationshipSpecialtyStart DateEnd Date Joaquin Aleman MD PCP - GeneralFamily Medicine02/08/16 Haley Morrow MD [address] [place] [address] ReferringIlstrosouthwest general health center05/11/25 Team Status: Active Member Role Status Dates Joaquin Aleman MD Primary Care Provider Active Start: June 09, 2025 Nicole Claudio ProviderActiveStart: June 09, [address] [facility] ProviderActiveStart: June 09, 2025 Team MemberRelationshipSpecialtyStart DateEnd Joaquin Harper MD PCP - [facility]Har[facility] Medicine06/03/24Team MemberRelationshipSpecialtyStart DateEnd Date Joaquin Aleman MD PCP - [facility]06/03/24 Goals (unrecognized section and content) Goals may be documented in a n alternate section Source Comments (unrecognize d section and content) In the event this informatio n is protected by the Federal Confidentiality of Alcohol and Drug Abuse Patient Records regulations: The Federal rules restrict any use of the information to criminally investigate or prosecute any alcohol or drug abuse patient.[facility] FOR RECORDS PERTAINING TO PATIENTS WHO ARE [...] BE BASED ON THE PRIMARY CLINICAL RECORDS. [employer] [facility]. provides no warranty or guarantee of the accuracy or completeness of information in this document.
--- NOTE | 2025-08-27 14:04 | CT_ITS ---
The [address] [address] Patient Name: OUMAR CHEN MRN: [id number] date: 1955 Sex: F Assigned Patient Location: LAB Current Patient Location: LAB Accession/Order Number: [id number] Exam Date: 08/27/2025 14:55 Report Date: 08/27/2025 22:31 At the request of: GREG PETERSON MD Procedure: CT abdomen pelvis w con CT ABDOMEN AND PELVIS WITH INTRAVENOUS CONTRAST: CLINICAL HISTORY: Right Upper Quadrant Abdominal Pain COMPARISON: None TECHNIQUE: Spiral images were obtained through the abdomen and pelvis following the administration of intravenous contrast. This CT exam was performed using one or more following dose reduction techniques: Automated exposure control, adjustment of the mA and/or kV according to patient size, or use of iterative reconstruction technique. FINDINGS: Lung Bases: [Minimal pleural-parenchymal bandlike opacities both lungs. Slight mosaic attenuation may raise possibility for air trapping. Organs:Left hepatic lobe cysts. Otherwise liver, spleen, adrenals, gallbladder and left kidney unremarkable. Minimal right-sided hydronephrosis. Fssh-ir-hbwdskdu right-sided hydroureter without definite obstructing calculus. There is an incidental 4 mm density adjacent the ureter thought to represent a phlebolith. GI: Mild retained stool the colon. No bowel obstruction. Appendix is unremarkable.[ Pelvis:[Uterus absent. No adnexal mass. Bladder is grossly unremarkable.] Peritoneum/Retroperitoneum:Moderate plaque involving the nonaneurysmal aorta. No free air or free fluid. No pathologically enlarged adenopathy.[ Abd wall/Bones:Facet arthropathy lower spine. Anterolisthesis L4-L5 [address]/CT abdomen pelvis w con IMPRESSION: Uuka-xr-fbtmjuuo right-sided hydroureter could be infectious or inflammatory or could relate to recently passed calculus. Otherwise negative acute inflammatory process or bowel obstruction. Impression dictated by: Allan Nance M.D. 08/27/2025 10:31 PM Dictation Location: [place] [address] Electronically authenticated by: [id number] Y Date: 08/27/2025 22:31
[2025-08-27 14:12] LABS: Estimated GFR (African America >60 (>=60 mL/min/1.73m^2); Estimated GFR (Non-African Ame >60 (>=60 mL/min/1.73m^2)
== END 2025-08-27 13:54 | disposition home or self-care (01) ==
LOC: LAB 13:53
PROVIDERS: Pathology Anatomic Pathology & Clinical Pathology; PCP Family Medicine; Visit Provider Family Medicine
DX: Z01.818 Encounter for other preprocedural examination (principal); R10.11 Right upper quadrant pain
CPT/HCPCS: 36415; 74177; 82565; Q9967